=== PATIENT | female | born 1990 | race Caucasian/White ===

== ENCOUNTER 2018-05-06 12:41 | Outpatient (REF) | payer OTHER, SELFPAY ==
--- NOTE | 2018-05-06 10:40 | PAPFT_PTH ---
PATIENT: Tiny Juarez LOC: [facility] U#:[id number] AGE/SX: 27/F ROOM: RE05/06/[address]: ZAIRA Alberto : 1990 BED: DIS: 05/06/2018 SPEC #: [id number] RECD: 05/06/18 13:14 STATUS: LIBERTAD REHermila #: [id number] JR: 05/06/18 10:[address]: Radha De Jesus DEPT: [facility] Cytology RECD BY: Brooke Farah ENTERED: 05/06/18 13:14 SP TYPE: PAPFT OTHR DR: Susi Ceja Tissues: 1 - CX/ENDOCX FOR PAP SMEARS Procedures: PAP THIN PREP/UVM Screening Comments: [id number]
[2018-05-09 15:07] LABS: Chlamydia Result Negative; GC Result Negative; Specimen Description CERVIX
== END 2018-05-06 13:01 ==
LOC: LBN 12:41
PROVIDERS: PCP Nurse Practitioner; Visit Provider Nurse Practitioner Family
DX: Z11.3 Encounter for screening for infections with a predominantly sexual mode of transmission (principal); Z12.4 Encounter for screening for malignant neoplasm of cervix
CPT/HCPCS: 87491; 87591; 88142

== ENCOUNTER 2018-11-28 00:32 | Outpatient (CLI) | payer OTHER, SELFPAY ==
--- NOTE | 2018-11-28 13:00 | DI.US_ITS ---
EXAM: US BREAST LT COMPLETE CLINICAL HISTORY: BREAST LESION N64.9, RECURRENT BOILS L02.92. TECHNIQUE: Ultrasound was performed using standard protocol. COMPARISON: US BREAST RT COMPLETE from 11/28/2018 FINDINGS: Bilateral small vascular subcutaneous nodules are identified. IMPRESSION: There is no evidence of a right or left breast mass or cyst.
--- NOTE | 2018-11-28 13:00 | DI.US_ITS ---
EXAM: US BREAST RT COMPLETE CLINICAL HISTORY: BREAST LESION N64.9, RECURRENT BOILS L02.92. TECHNIQUE: Ultrasound was performed using standard protocol. FINDINGS: A bilateral breast ultrasound was carried out. Small subcutaneous lesions are demonstrated bilateral ly. In the superior portion of the right breast, the largest measures 6.8 x 2.0 x 9.1 mm. For media l portion of the left breast, the largest measures 7.5 x 4 x 7 mm. There is no evidence of a breast cyst or mass IMPRESSION: Multiple small subcutaneous nodular regions are noted. There is no evidence of mass or cyst in the br east tissue. Dermatological assessment is suggested.
== END 2018-11-28 00:52 ==
PROVIDERS: PCP Nurse Practitioner Family; Visit Provider Nurse Practitioner Family
DX: N64.9 Disorder of breast, unspecified (principal); L02.92 Furuncle, unspecified; N64.89 Other specified disorders of breast
CPT/HCPCS: 76642

== ENCOUNTER 2019-05-26 09:50 | Outpatient (REF) | payer OTHER, SELFPAY ==
--- NOTE | 2019-05-26 09:30 | PAPFT_PTH ---
PATIENT: Tiny Juarez LOC: [facility] U#:[id number] AGE/SX: 29/F ROOM: RE05/26/[address]: ZAIRA Alberto : 1990 BED: DIS: 05/26/2019 SPEC #: [id number] RECD: 05/26/19 13:25 STATUS: LIBERTAD REHermila #: [id number] JR: 05/26/19 09:[address]: Radha De Jesus DEPT: [facility] Cytology RECD BY: Brooke Farah ENTERED: 05/26/19 13:26 SP TYPE: PAPFT OTHR DR: Lisa Mcgregor Tissues: 1 - CX/ENDOCX FOR PAP SMEARS Procedures: PAP THIN PREP/UVM Screening HPV DNA PROBE Comments: [id number]
== END 2019-05-26 10:10 ==
LOC: LBN 09:50
PROVIDERS: PCP Nurse Practitioner Family; Visit Provider Nurse Practitioner Family
DX: Z12.4 Encounter for screening for malignant neoplasm of cervix (principal); Z11.51 Encounter for screening for human papillomavirus (HPV)
CPT/HCPCS: 88142; 87624

== ENCOUNTER 2020-01-23 14:42 | Outpatient (REF) | payer OTHER, SELFPAY ==
[2020-01-27 03:52] LABS: Patient Race White; SARS-CoV-2 RNA Undetected (Undetected); SARS-CoV-2 Specimen Source Nasal
== END 2020-01-23 15:02 ==
LOC: NCHCN 14:42
PROVIDERS: PCP Nurse Practitioner Family; Visit Provider Family Medicine
DX: Z20.828 Contact with and (suspected) exposure to other viral communicable diseases (principal)
CPT/HCPCS: U0003

== ENCOUNTER 2020-01-30 11:17 | Outpatient (REF) | payer OTHER, SELFPAY ==
[2020-01-30 21:59] LABS: HCT 43.1 % (36.0-46.0); HGB 14.1 g/dL (11.2-15.7); MCH 29.7 pg (27.0-33.0); MCHC 32.7 % (32.0-36.0); MCV 90.7 fL (80-95); MPV 10.8 fL (8.0-11.0); Platelet Count 259 10^3/uL (130-400); RBC 4.75 10^6/uL (3.93-5.22); RDW 12.1 % (11.7-14.6); RDW-SD 40.2 fL
[2020-01-30 22:23] LABS: Iron 57 ug/dL (50-170); Total Iron Binding Capacity 363 ug/dL (250-450); Transferrin Sat 16 % (15-50)
[2020-01-30 22:51] LABS: ALT 44 U/L (14-59); AST 22 U/L (15-37); Albumin 4.1 g/dL (3.4-5.0); Alkaline Phosphatase 41 U/L (46-116); Anion Gap 6.3 mmol/L (3-11); BUN 14 mg/dL (7-18); Bilirubin, Total 0.2 mg/dL (0.2-1.0); CO2 28.7 mmol/L (21.0-32.0); CREATININE 0.66 mg/dL (0.55-1.02); Calcium 8.9 mg/dL (8.5-10.1); Chloride 103 mmol/L (98-107); Glucose 69 mg/dL (74-106); Magnesium 2.1 mg/dL (1.8-2.4); Potassium 4.3 mmol/L (3.5-5.1); Sodium 138 mmol/L (136-145); TSH (W/Ref FT4) 2.62 uIU/mL (0.36-3.74); Total Protein 7.9 g/dL (6.4-8.2); Vitamin B12 835 pg/mL (193-986)
[2020-01-30 22:58] LABS: HCG Quant, Pregnancy < 1 mIU/mL (1-3)
== END 2020-01-30 11:37 ==
LOC: NCHCN 11:17
PROVIDERS: PCP Nurse Practitioner Family; Visit Provider Nurse Practitioner Family
DX: R42 Dizziness and giddiness (principal)
CPT/HCPCS: 80053; 85027; 82607; 83540; 83550; 83735; 84443; 84702

== ENCOUNTER 2021-01-16 16:52 | Outpatient (REF) | payer OTHER, SELFPAY ==
[2021-01-20 14:23] LABS: Chlamydia Result Negative (Negative); GC Result Negative (Negative)
== END 2021-01-16 16:53 | disposition home or self-care (01) ==
LOC: LBN 16:52
PROVIDERS: PCP Nurse Practitioner Family; Visit Provider Nurse Practitioner Family
DX: Z11.3 Encounter for screening for infections with a predominantly sexual mode of transmission (principal)
CPT/HCPCS: 87491; 87591

== ENCOUNTER 2021-01-20 03:31 | Outpatient (CLI) | payer SELFPAY ==
[2021-01-20 13:03] LABS: TSH (W/Ref FT4) 2.74 uIU/mL (0.36-3.74)
== END 2021-01-20 03:32 | disposition home or self-care (01) ==
LOC: LBO 03:32
PROVIDERS: PCP Nurse Practitioner Family; Visit Provider Nurse Practitioner Family
DX: N92.6 Irregular menstruation, unspecified (principal)
CPT/HCPCS: 36415; 84443

== ENCOUNTER 2022-05-15 02:38 | Outpatient (CLI) | payer BC, SELFPAY ==
[2022-05-15 13:11] LABS: Vitamin D 25 Total 20.9 ng/mL (30-100)
[2022-05-15 19:21] LABS: Estradiol 28 pg/mL (See Note); FSH 4.6 mIU/mL (See Note); Prolactin 4.8 ng/mL (See Note)
[2022-05-18 09:02] LABS: Measles IgG Antibody Positive (See Note)
[2022-05-18 09:05] LABS: Rubella IgG Ab (UVM) Positive (See Note)
[2022-05-18 09:20] LABS: DHEA Sulfate 233 ug/dL (96-512)
[2022-05-22 12:31] LABS: Testosterone, Free 0.72 ng/dL (<0.13-1.03); Testosterone, Total 26 ng/dL (8-60)
[2022-05-23 23:26] LABS: 17-Hydroxyprogesterone 54 ng/dL
== END 2022-05-15 02:39 | disposition home or self-care (01) ==
LOC: LBO 02:38
PROVIDERS: PCP Nurse Practitioner Family; Visit Provider Obstetrics & Gynecology
DX: N91.4 Secondary oligomenorrhea (principal); L70.0 Acne vulgaris
CPT/HCPCS: 36415; 82306; 82627; 84402; 84403; 82670; 83001; 83498; 83520; 84146; 84443; 86762; 86765

== ENCOUNTER 2023-02-16 16:43 | Outpatient (REF) | payer BC, SELFPAY ==
--- NOTE | 2023-02-16 15:30 | PAPFT_PTH ---
PATIENT: Tiny Juarez LOC: [facility] U#:[id number] AGE/SX: 32/F ROOM: RE02/16/[address]: Tatyana Daniels MD : 1990 BED: DIS: 02/16/2023 SPEC #: [id number] RECD: 02/16/23 17:41 STATUS: LIBERTAD REQ #: [id number] JR: 02/16/23 15:[address]: Tatyana Daniels DEPT: [facility] Cytology RECD BY: Brooke Farah ENTERED: 02/16/23 17:41 SP TYPE: PAPFT OTHR DR: Lisa Mcgregor Tissues: 1 - CX/ENDOCX FOR PAP SMEARS Procedures: PAP THIN PREP/UVM Screening HPV DNA PROBE Comments: [id number]
== END 2023-02-16 16:44 | disposition home or self-care (01) ==
LOC: LBN 16:43
PROVIDERS: PCP Nurse Practitioner Family; Visit Provider Obstetrics & Gynecology
DX: Z12.4 Encounter for screening for malignant neoplasm of cervix (principal)
CPT/HCPCS: 88142; 87624

== ENCOUNTER 2023-04-26 05:12 | Outpatient (CLI) | payer BC, SELFPAY ==
--- NOTE | 2023-05-07 14:53 | W.NUTRFU ---
Date of service: 04/26/23 Time of Service: 14:30 Nutrition Note NOTE: Tiny would like help with her weight mgt struggles. She is 60.5 and 164 pounds today with a BMI of 31.5kg/m2. She lives at home with her and 10yo son. She denies current consumption of sugar beverages and averages 1 glass of milk per day with tons of water daily. She takes vitamin. She is hoping to lose weight so IVF chances are greater. 140lbs is her goal. She has experimented with intermittent fasting and did 16/8 for awhile and now is doing 02/16 (~7:45am to 7:45pm for her eating window). I agreed that the 02/16 is better for her to get necessary nutrients but also closes the window before night time snacking can occur for many people. She usually has CIB drink for breakfast, lunch migh be salad - she tries to avoid no breads and pasta during the week but will allow toast on the weekend. Reviewed estimated energy as 1600kcals for slow and steady wt loss and translated this to 160g carb recommendation -reviewed carb counting and this includes starches, added sugars (to be kept under 30g) and fiber. encouraged protein at each meal with goal of 120g per day - reviewed sources and examples and highlighted a good amount of protein should be coming from plants to ensure high fiber intake as well (nuts seeds, beans, lentils and high protein grains like whole oats and quinoa) She uses treadmill and recumbant bike periodically. I emphasized strength training for developing lean muscle to aid in her goal for efficient metabolism. encouraged whole foods and minimally processed products - suggested CIB in the morning could be more nutritious and higher in protein if made a smoothie with whey instead with frz berries, flax and frzn greens. gave her some reliable resources for help with menu planning gave her my card with contact info should she have any more questions or desires follow up Time Spent in Nutritional Counseling and Treatment: 30 minutes
== END 2023-04-26 05:13 | disposition home or self-care (01) ==
LOC: DS 05:12
PROVIDERS: PCP Nurse Practitioner Family; Visit Provider Dietitian, Registered
DX: E66.3 Overweight (principal); Z68.31 Body mass index [BMI] 31.0-31.9, adult; Z71.3 Dietary counseling and surveillance
CPT/HCPCS: 123; 97802; 00123

== ENCOUNTER 2024-01-06 08:19 | Outpatient (CLI) | payer BC, SELFPAY ==
--- OUTSIDE RECORDS SUMMARY | 2024-01-06 08:21 | XMS_ITS | Encounter Summary ---
Author Organization [facility] Address [address] [place] [address] Care Team Providers Care Bmw Sales Consultant Name Role Phone BalbirLisa [facility] Primary Care Provider [phone] Md MICHAELA Alfaro Unavailable Unavailable Encounter Details Date Type Department Care Team (Late st Contact Info) Description 12/27/2023 8:45 EDT Phlebotomy Only [facility] ED Center 2 Phlebotomy [address] [place] [address] Aircraft Fuselage Framer, [facility] Phlebotomy Encounter for in vitro fertilization Social History Tobacco Use Types Packs/Day Years Used Date Smoking Tobacco: Never Smokeless Tobacco: Never Alcohol Use Standard Drinks/Week Comments Not Currently 0 (1 standard drink = 0.6 oz pur e alcohol) Sex and Gender Information Value Date Recorded Sex Assigned at Female 09/07/2023 13:39 EDT Gender Identity Female 09/07/2023 13:39 EDT Sexual Orientation Straight 09/07/2023 13 :39 EDT documented as of this encounter Plan of Treatment Upcoming Encounters Date Type Department Care Team (Late st Contact Info) Description 01/13/2024 13:15 EST Telemedicine [facility] Center Reproductive Medicine & Infertility Center - [facility] [address], [place] [phone] Layla Reid MD [address] [facility], [address] [place] [address] documented as of this encounter Procedures Procedure Name Priority Date/Time Associated Diagnosis Comments QUANT BETA HCG, Routine 12/27/2023 9:04 EDT Encounter for in vitro fertilization documented in this encounter Results * (ABNORMAL) QUANT BETA HCG, (12/27/2023 9:04 EDT) Beta HCG Quant, 18(H) <5 mIU/mL 12/27/2023 10:17 EDT [facility] Comment: NOTE: : Negative: Less than 5mIU/mL Indeterminant: Between 5 and 25 mIU/mL, recommend repeat testing in 48 hours Positive: Greater than 25 mIU/mL The results of this assay can be falsely lowered due to the consumption of Biotin. Blood VENOUS BLOOD / Unknown Venipuncture / Unknown 12/27/2023 9:04 EDT 12/27/2023 9:33 EDT Layla Reid MD CHEMISTRY & BLOOD GAS ORDERABLES [facility] [address] [place] [address] documented in this encounter Visit Diagnoses Diagnosis Encounter for in vitro fertilization Encounter for assisted reproductive fertility procedure cycle documented in this encounter Care Teams Bmw Sales Consultant Relationship Specialty Start Date End Date Lisa Mcgregor FNP [address] [place] [address] [address] [place] [address] PCP - General 05/05/22 Md Alfaro MD 05/05/22 documented as of this encounter
--- OUTSIDE RECORDS SUMMARY | 2024-01-06 08:21 | XMS_ITS | Encounter Summary ---
Author Organization [facility] Address [address] [place] [address] Care Team Providers Care Merchandise Team Manager Name Role Phone Lisa Mcgregor [facility] Primary Care Provider [phone] Md MICHAELA Alfaro Unavailable Unavailable Encounter Details Date Type Department Care Team (Late st Contact Info) Description 12/29/2023 Orders Only [facility] Reproductive Medicine & Infertility [address] [address] Aleisha Che, [place] Encounter for in vitro fertilization (Primary Dx) Social History Tobacco Use Types Packs/Day Years [...] Contact Info) Description 01/13/2024 13:15 EST Telemedicine [facility] Reproductive Medicine & Infertility [address] [phone] Layla Reid MD [address] [place] [address] [address] [place] [phone] documented as of this encounter Results * (ABNORMAL) QUANT BETA HCG, (12/31/2023 9:21 EDT) Beta HCG Quant, 89(H) <5 mIU/mL 12/31/2023 10:27 EDT [facility] Comment: NOTE: : Negative: Less than 5mIU/mL Indeterminant: Between 5 and 25 mIU/mL, recommend repeat testing in 48 hours Positive: Greater than 25 mIU/mL The results of this assay can be falsely lowered due to the consumption of Biotin. Blood VENOUS BLOOD / Unknown Venipuncture / Unknown 12/31/2023 9:21 EDT 12/31/2023 9:43 EDT Layla Reid MD CHEMISTRY & BLOOD GAS ORDERABLES [facility] [address] [place], [place] [phone] documented in this encounter Visit Diagnoses Diagnosis Encounter for in vitro fertilization- Primary Encounter for assisted reproductive fertility procedure cycle documented in this encounter Care Teams Merchandise Team Manager Relationship Specialty Start Date End Date Lisa Mcgregor FNP [address] [facility] [address] [place] [phone] PCP - General 05/05/22 Md Alfaro MD 05/05/22 documented as of this encounter
--- OUTSIDE RECORDS SUMMARY | 2024-01-06 08:21 | XMS_ITS | Encounter Summary ---
Author Organization [facility] Address [address] [place] [address] Care Team Providers Care Digital Content Producer Name Role Phone BalbirLisa [facility] Primary Care Provider [phone] Md MICHAELA Alfaro Unavailable Unavailable Encounter Details Date Type Department Care Team (Late st Contact Info) Description 12/20/2023 9:00 EDT Phlebotomy Only [facility] ED Center 2 Phlebotomy [address] [place], [place] [phone] Lead Worker Of Housekeeping And Laundry, [facility] Phlebotomy Female infertility Social History Tobacco Use Types Packs/Day Years [...] Contact Info) Description 01/13/2024 13:15 EST Telemedicine [facility] Center Reproductive Medicine & Infertility Center - [facility] [address] [place] [address] Layla Reid MD 111 [facility] [address] [place] [phone] documented as of this encounter Procedures Procedure Name Priority Date/Time Associated Diagnosis Comments PROGESTERONE Routine 12/20/2023 9:33 EDT Female infertility ESTRADIOL, ADULTS Routine 12/20/2023 9:3 3 EDT Female infertility QUANT BETA HCG, Routine 12/20/2023 9:33 EDT Female infertility documented in this encounter Results * PROGESTERONE (12/20/2023 9:33 EDT) [facility] Signature Progesterone 58.6 See Table ng/mL 12/20/2023 13:18 EDT [facility] Comment: Female Reference Ranges: PHYSIOLOGICAL STATUS ?REFERENCE RANGE ? Pre-Pubertal: ? <= 0.2 ng/mL Menstruating: (Non-) Follicular Phase: ? <= 1.4 ng/mL Luteal Phase: ? 3.3 - 25.6 ng/mL Mid-luteal Phase: ? 4.4 - 28.0 ng/mL Postmenopausal: ? <= 0.7 ng/mL : -------- First Trimester: ?11.2 - 90.0 ng/mL Second Trimester: ? 25.6 - 89.4 ng/mL Third Trimester: ?48.4 - 422.5ng/mL For ectopic , consult a pathologist. Blood VENOUS BLOOD / Unknown Venipuncture / Unknown 12/20/2023 9:33 EDT 12/20/2023 9:52 EDT Layla Reid MD CHEMISTRY & BLOOD GAS ORDERABLES Performing Organization Address [facility] Co de Phone Number [facility] [address] [place] [address] * ESTRADIOL, ADULTS (12/20/2023 9:33 EDT) Estradiol 188 See Note pg/mL 12/20/2023 11:11 EDT [facility] Comment: NOTE: FEMALE REFERENCE RANGES: MENSTRUATING ? By cycle day relative to LH peak Follicular ?(-12 to -4 days) ??20-144 pg/mL Midcycle ?(-3 to +2 days) ?? 64-357 pg/mL Luteal ?(+4 to +12 days) ??56-214 pg/mL POSTMENOPAUSAL ?<32 pg/mL *Cross reactivity with Fulvestrant could lead to a falsely elevated estradiol result in patients treated with this drug. Blood VENOUS BLOOD / Unknown Venipuncture / Unknown 12/20/2023 9:33 EDT 12/20/2023 9:52 EDT Layla Reid MD CHEMISTRY & BLOOD GAS ORDERABLES Performing Organization Address [facility] Co de Phone Number [facility] [address] [place] [address] * QUANT BETA HCG, (12/20/2023 9:33 EDT) Beta HCG Quant, <5 <5 mIU/mL 12/20/2023 10:38 EDT [facility] Comment: NOTE: : Negative: Less than 5mIU/mL Indeterminant: Between 5 and 25 mIU/mL, recommend repeat testing in 48 hours Positive: Greater than 25 mIU/mL The results of this assay can be falsely lowered due to the consumption of Biotin. Blood VENOUS BLOOD / Unknown Venipuncture / Unknown 12/20/2023 9:33 EDT 12/20/2023 9:52 EDT Layla Reid MD CHEMISTRY & BLOOD GAS ORDERABLES [facility] [address] [place] [address] documented in this encounter Visit Diagnoses Diagnosis Female infertility Female infertility of unspecified origin documented in this encounter Care Teams Digital Content Producer Relationship Specialty Start Date End Date Lisa Mcgregor FNP [address] [phone] PCP - General 05/05/22 Md Alfaro MD 05/05/22 documented as of this encounter
--- OUTSIDE RECORDS SUMMARY | 2024-01-06 08:21 | XMS_ITS | Encounter Summary ---
Author Organization [facility] Address [address] [place] [address] Care Team Providers Care Regulatory Affairs Internship Name Role Phone BalbirLisa [facility] Primary Care Provider [phone] Md MICHAELA Alfaro Unavailable Unavailable Encounter Details Date Type Department Care Team (Late st Contact Info) Description 12/16/2023 9:15 EDT Phlebotomy Only [facility] ED Center 2 Phlebotomy [address] [place], [place] [address] Junior Web Developer, [facility] Phlebotomy Encounter for assisted reproductive fertility cycle; Encounter for assisted reproductive fertility procedure cycle [Z31.83] Social History Tobacco Use Types Packs/Day Years [...] Contact Info) Description 01/13/2024 13:15 EST Telemedicine [facility] Center Reproductive Medicine & Infertility Center - [facility] [address] [place], [place] [phone] Layla Reid MD [address] [facility] [address] [place] [phone] (Zuzo) documented as of this encounter Procedures Procedure Name Priority Date/Time Associated Diagnosis Comments PROGESTERONE Routine 12/16/2023 9:37 EDT Encounter for assisted reproductive fertility procedure cycle [Z31.83] ESTRADIOL, ADULTS Routine 12/16/2023 9:3 7 EDT Encounter for assisted reproductive fertility cycle documented in this encounter Results * PROGESTERONE (12/16/2023 9:37 EDT) [facility] Signature Progesterone 36.0 See Table ng/mL 12/16/2023 10:55 EDT [facility] Comment: Female Reference Ranges: PHYSIOLOGICAL [...] VENOUS BLOOD / Unknown Venipuncture / Unknown 12/16/2023 9:37 EDT 12/16/2023 10:02 EDT Layla Reid MD CHEMISTRY & BLOOD GAS ORDERABLES Performing Organization Address [facility] Co de Phone Number [facility] [address] [place] [address] * ESTRADIOL, ADULTS (12/16/2023 9:37 EDT) Estradiol 457 See Note pg/mL 12/16/2023 10:55 EDT [facility] Comment: NOTE: FEMALE REFERENCE RANGES: [...] VENOUS BLOOD / Unknown Venipuncture / Unknown 12/16/2023 9:37 EDT 12/16/2023 10:02 EDT Aurora Hinton MD CHEMISTRY & BLOOD GA S ORDERABLES Performing Organization Address City/[facility] Co de Phone Number [facility] [address] [place] [address] documented in this encounter Visit Diagnoses Diagnosis Encounter for assisted reproductive fertility cycle Encounter for assisted reproductive fertility procedure cycle Encounter for assisted reproductive fertility procedure cycle [Z31.83] Encounter for assisted reproductive fertility procedure cycle documented in this encounter Care Teams Regulatory Affairs Internship Relationship Specialty Start Date End Date Lisa Mcgregor FNP [address] [place] [address] [address] [place] [address] PCP - General 05/05/22 Md Alfaro MD 05/05/22 documented as of this encounter
--- OUTSIDE RECORDS SUMMARY | 2024-01-06 08:21 | XMS_ITS | Encounter Summary ---
Author Organization [facility] Address [address] [place] [address] Care Team Providers Care Feeder Loader Name Role Phone BalbirLisa [facility] Primary Care Provider [phone] Md MICHAELA Alfaro Unavailable Unavailable Reason for Referral * Radiology Services (Routine/Next Available) - New Request Specialty Diagnoses / Procedures [facility] Referred To Contact Diagnoses Encounter for assisted reproductive fertility procedure cycle Procedures POC IVF/KIANNA US GUIDANCE Layla Reid MD [address] [place] [phone] Referral ID Status Reason Start Date Expiration Date V isits Requested Visits Authorized [id number] New Request 12/16/2023 1 1 Encounter Details Date Type Department Care Team (Late st Contact Info) Description 12/16/2023 11:00 EDT - 12/16/2023 23:59 EDT Hospital Encounter [facility] Reproductive Medicine & Infertility Center - [facility] [address] [place] [address] Layla Reid MD [address] [phone] Encounter for assisted reproductive fertility procedure cycle (Primary Dx) Discharge Disposition: Home or Self Care Social History Tobacco Use Types Packs/Day Years [...] :39 EDT documented as of this encounter Medications at Time of Discharge Medication Sig Dispensed Refills Start Date End Date acyclovir (ZOVIRAX) 200 mg capsule Take 2 Capsules by mouth 2 times daily. cholecalciferol, Vitamin D3, 25 mcg (1,000 unit) tablet Take 2 Tablets by mouth daily. chorionic gonadotropin, human (PREGNYL) 10,000 unit injection Injected 1 mL into the skin once when directed. 1 Each 11/02/2023 Follitropin Arnoldo (GONAL-F) 1,050 unit recon soln Inject 300 Units into the skin daily. 1 Each 12/10/2023 ganirelix (ANTAGON) 250 mcg/0.5 mL syringe Inject 0.5 mL into the skin daily. 2 Each 12/10/2023 leuprolide (LUPRON) 1 mg/0.2 mL kit Inject 80 units into the skin 12 hours apart when direct. BILL TO IVF CLINIC PLAN, GLOBAL. 1 Each 12/07/2023 menotropins (MENOPUR) 75 unit solution for subcutaneous injection Inject 150 Units into the skin daily. 5 Each 12/09/2023 25/iron fum/folic/dha (-1 ORAL) Take by mouth daily. estradioL (ESTRACE) 2 mg tablet Take 1 Tablet by mouth 3 times daily. 90 Tablet 12/13/2023 12/29/2023 oxyCODONE (ROXICODONE) 5 mg immediate release tablet Take 1 Tablet by mouth every 4 hours as needed for up to 5 doses for Pain. Daily Max: 30 mg 5 Tablet 12/14/2023 12/29/2023 progesterone in oil 50 mg/mL injection Inject 1 mL into the muscle daily. 3 Each 1 11/02/2023 12/29/2023 documented as of this encounter Discharge Disposition Disposition Code Departure Means Destination Home or Self Care documented in this encounter Progress Notes * Layla Reid MD - 12/16/2023 1100 EDT EMBRYO TRANSFER PROCEDURE NOTE Consents verified and a standard WHO surgical time out verification procedure performed prior to start of embryo transfer. The patient, providers, and the embryology lab were all in agreement to transfer 2 embryo(s). The grade was: 8B+, 7B+ The remaining day 3 embryos will remain in culture to day 5. Findings: (1) Normal-appearing anteverted uterus with thickened trilaminar endometrial stripe, measuring 10mm. (2) Transfer completed using Wallce catheter without stylet guide with minimal curve on catheter. No difficulty. Sterile [place] speculum inserted, cervix cleaned with sterile culture media. Endocervix cleaned of cervical mucus with small cotton swab. No bleeding occurred. Under ultrasound guidance, the [place] embryo transfer catheter was passed without difficulty in one attempt into the endocervical canal to the level of the internal cervical os. The lab was then notified to load the embryos into the inner catheter. The inner guide catheter was then removed from the outer sheath, and a new inner catheter with embryos loaded was introduced to approximately 1.3 cm from the uterine fundus under ultrasound guidance. The embryos were then transferred into the uterine cavity. After a 15 second pause, thecatheter was removed and returned to the lab. There was no blood or mucus on the catheter, and no embryos were retained. No uterine cramping occurred. The speculum was then removed. The patient had afull bladder throughout the procedure. She then immediately ambulated to the restroom to empty her bladder. Transfer performed by Dr. Land, assisted by Dr. Reid. First serum HCG to be drawn on 12/27/23. Jessa Land MD PGY7 Fellow Reproductive Endocrinology & Infertility [facility] 12/16/2023 Attestation statement: I was present during the entire procedure during the patient's clinic visit.I agree with the findings and plan of care documented in the above note. Layla Reid MD Reproductive Endocrinology and Infertility. documented in this encounter Miscellaneous Notes * Addendum Note - Layla Reid MD - 12/16/2023 1100 EDTEncounter addended by: Layla Reid MD on: 12/16/2023 12:55 Actions taken: Clinical Note Signed * Addendum Note - Layla Reid MD - 12/16/2023 1100 EDTEncounter addended by: Layla Reid MD on: 12/17/2023 8:31 Actions taken: Clinical Note Signed * Addendum Note - Layla Reid MD - 12/16/2023 1100 EDTEncounter addended by: Layla Reid MD on: 12/17/2023 8:32 Actions taken: Clinical Note Signed documented in this encounter Plan of Treatment Upcoming Encounters Date Type Department Care Team (Late st Contact Info) Description 01/13/2024 13:15 EST Telemedicine [facility] Reproductive Medicine & Infertility Center - [address] [phone] Layla Reid MD [address] [place] [address], [address] [place] [phone] documented as of this encounter Results * POC IVF/KIANNA US GUIDANCE (12/16/2023 10:50 EDT) Narrative 12/16/2023 10:50 EDT This is a non-reportable exam. Layla Reid MD IMG US POC ORDERA BLES documented in this encounter Visit Diagnoses Diagnosis Encounter for assisted reproductive fertility procedure cycle- Primary Encounter for assisted reproductive fertility procedure cycle documented in this encounter Care Teams Feeder Loader Relationship Specialty Start Date End Date Lisa Mcgregor FNP 26 [facility] [address] [place] [phone] PCP - General 05/05/22 Md Alfaro MD 05/05/22 documented as of this encounter
--- OUTSIDE RECORDS SUMMARY | 2024-01-06 08:21 | XMS_ITS | Encounter Summary ---
Author Organization [facility] Address [address] [place] [address] Care Team Providers Care Copper Plate Lithographer Name Role Phone Lisa Mcgregor [facility] Primary Care Provider [phone] Md MICHAELA Alfaro Unavailable Unavailable Encounter Details Date Type Department Care Team (Late st Contact Info) Description 12/27/2023 Orders Only [facility] Reproductive Medicine & Infertility [address] [address] Aleisha Che, [place] Encounter for [...] Contact Info) Description 01/13/2024 13:15 EST Telemedicine [facility] Rep[facility]ductive Medicine & Infertility [address] [id number] Layla Reid MD [address] [place] [address] [address] [place] [phone] documented as of this encounter Results * (ABNORMAL) QUANT BETA HCG, (12/29/2023 9:15 EDT) Beta HCG Quant, 38(H) <5 mIU/mL 12/29/2023 10:31 EDT [facility] Comment: NOTE: : Negative: Less than 5mIU/mL Indeterminant: Between 5 and 25 mIU/mL, recommend repeat testing in 48 hours Positive: Greater than 25 mIU/mL The results of this assay can be falsely lowered due to the consumption of Biotin. Blood VENOUS BLOOD / Unknown Venipuncture / Unknown 12/29/2023 9:15 EDT 12/29/2023 9:43 EDT Layla Reid MD CHEMISTRY & BLOOD GAS ORDERABLES [facility] [address] [place] [phone] documented in this encounter Visit Diagnoses Diagnosis Encounter for in vitro fertilization- Primary Encounter for assisted reproductive fertility procedure cycle documented in this encounter Care Teams Copper Plate Lithographer Relationship Specialty Start Date End Date Lisa Mcgregor FNP [address] [facility] [address] [place] [phone] PCP - General 05/05/22 Md Alfaro MD 05/05/22 documented as of this encounter
--- OUTSIDE RECORDS SUMMARY | 2024-01-06 08:21 | XMS_ITS | Encounter Summary ---
Author Organization [facility] Address [address] [place] [address] Care Team Providers Care Envelope Sealer Name Role Phone Lisa Mcgregor [facility] Primary Care Provider [phone] Md MICHAELA Alfaro Unavailable Unavailable Reason for Referral * Radiology Services (Routine/Next Available) - New Request Specialty Diagnoses / Procedures Referred By Jalil t Referred To Contact Diagnoses Encounter for assisted reproductive fertility procedure cycle Procedures POC IVF/KIANNA US GUIDANCE Layla Reid MD [address] [address] Referral ID Status Reason Start Date Expiration Date V isits Requested Visits Authorized [id number] New Request 12/16/2023 1 1 Reason for Visit * Radiology Services (Routine/Next Available) - New Request Specialty Diagnoses / Procedures Referred By Contunique quiñones Referred To Contact Diagnoses Encounter for assisted reproductive fertility procedure cycle Procedures POC IVF/KIANNA US GUIDANCE Layla Reid MD [address] [address] Referral ID Status Reason Start Date Expiration Date V isits Requested Visits Authorized [id number] New Request 12/16/2023 1 1 Encounter Details Date Type Department Care Team (Latest Contact Info) Description 12/16/2023 10:50 EDT - 12/16/2023 10:59 EDT Hospital Encounter [facility] Reproductive Medicine [facility] Infertility [facility] - [address] [address] Encounter for assisted reproductive fertility procedure cycle Discharge Disposition: Home or Self Care Social [...] or Self Care documented in this encounter Plan of Treatment Upcoming Encounters Date Type Department Care Team (Late st Contact Info) Description 01/13/2024 13:15 EST Telemedicine [facility] Reproductive Medicine & Infertility Center - [facility] [address] [place] [address] Layla Reid MD [address] [place] [address], [address] [place] [phone] documented as of this encounter Procedures Procedure Name Priority Date/Time Associated Diagnosis Comments POC IVF/KIANNA US GUIDANCE Routine 12/16/2023 10:50 EDT Encounter for assisted reproductive fertility procedure cycle documented in this encounter Results * POC IVF/KIANNA US GUIDANCE (12/16/2023 10:50 EDT) Narrative 12/16/2023 10:50 EDT This is a non-reportable exam. Layla Reid MD IMG US POC ORDERA BLES documented in this encounter Visit Diagnoses Diagnosis Encounter for assisted reproductive fertility procedure cycle documented in this encounter Care Teams Envelope Sealer Relationship Specialty Start Date End Date Lisa Mcgregor FNP [address] [facility] [address] [place] [phone] PCP - General 05/05/22 Md Alfaro MD 05/05/22 documented as of this encounter
--- OUTSIDE RECORDS SUMMARY | 2024-01-06 08:21 | XMS_ITS | Encounter Summary ---
Author Organization [facility] Address [address] [place] [address] Care Team Providers Care Collar Baster Jumpbasting Name Role Phone BalbirLisa [facility] Primary Care Provider [phone] Md MICHAELA Alfaro Unavailable Unavailable Encounter Details Date Type Department Care Team (Late st Contact Info) Description 12/29/2023 9:00 EDT Phlebotomy Only [facility] 2 Phlebotomy [address] [place] [address] Mold Sheet Cleaner, [facility] Phlebotomy Encounter for in vitro fertilization Social [...] Contact Info) Description 01/13/2024 13:15 EST Telemedicine [facility] Reproductive Medicine & Infertility Center - [facility] [address] [place], [place] [phone] Layla Reid MD [address] [facility], [address] [place] [address] documented as of this encounter Procedures Procedure Name Priority Date/Time Associated Diagnosis Comments QUANT BETA HCG, Routine 12/29/2023 9:15 EDT Encounter for in vitro fertilization documented in this encounter Results * (ABNORMAL) QUANT BETA HCG, (12/29/2023 9:15 EDT) Beta HCG Quant, 38(H) <5 mIU/mL 12/29/2023 10:31 EDT [facility] Comment: NOTE: : [...] Reid MD CHEMISTRY & BLOOD GAS ORDERABLES [facility] [address] [place] [address] documented in this encounter Visit Diagnoses Diagnosis Encounter for in vitro fertilization Encounter for assisted reproductive fertility procedure cycle documented in this encounter Care Teams Collar Baster Jumpbasting Relationship Specialty Start Date End Date Lisa Mcgregro FNP [address] [place] [address] [address] [place] [address] PCP - General 05/05/22 Md Alfaro MD 05/05/22 documented as of this encounter
--- OUTSIDE RECORDS SUMMARY | 2024-01-06 08:21 | XMS_ITS | Referral Summary ---
Author Organization [facility] Address [address] [place] [address] Care Team Providers Care Process Control Programmer Name Role Phone Lisa Mcgregor CLINICAL REHAB SPECIALIST Primary Care Provider [phone] Md MICHAELA Alfaro Unavailable Unavailable Encounters Date Type Department Care Team Description 01/04/2024 Travel 01/04/2024 8:33 EDT - 01/04/2024 12:50 EDT Emergency [facility] Emergency Department - [address] [id number] Kirby Velazquez MD Threatened (Primary Dx) Discharge Disposition: Home or Self Care 01/02/2024 8:30 EDT Phlebotomy Only [facility] 2 Phlebotomy [address], [place] [id number] General Manager [employer], Acc Phlebotomy resulting from assisted reproductive technology in first trimester 12/31/2023 9:00 EDT Phlebotomy Only [facility] 2 Phlebotomy [address], [place] [address] General Manager [employer], Acc Phlebotomy Encounter for in vitro fertilization 12/29/2023 Telephone [facility] - [facility] [address], [place] [address] Lucrecia Land MD Results 12/29/2023 Orders Only [facility] Reproductive Medicine & Infertility Center - [facility] [place] [address] [place] [address] Aleisha Che, RN Encounter for in vitro fertilization (Primary Dx) 12/29/2023 9:00 EDT Phlebotomy Only [facility] 2 Phlebotomy [address] [place] [address] General Manager [employer], Acc Phlebotomy Encounter for in vitro fertilization 12/27/2023 Orders Only [facility] Reproductive Medicine & Infertility [facility] [address] [place] [address] Aleisha Che, RN Encounter for in vitro fertilization (Primary Dx) 12/27/2023 8:45 EDT Phlebotomy Only [facility] 2 Phlebotomy [address] [place] [address] General Manager [employer], Acc Phlebotomy Encounter for in vitro fertilization 12/24/2023 Orders Only [facility] Reproductive Medicine & Infertility [address] [address] Aleisha Che, RN Encounter for in vitro fertilization (Primary Dx) 12/23/2023 Documentation Visit [facility] & Infertility [address] [address] Lucrecia Land MD 12/23/2023 9:00 EDT Phlebotomy Only [facility] 2 Phlebotomy [address] [place] [address] General Manager [employer], Acc Phlebotomy Female infertility 12/20/2023 Documentation Visit [facility]ductive Medicine & Infertility [address] [address] Lucrecia Land MD 12/20/2023 9:00 EDT Phlebotomy Only [facility] 2 Phlebotomy [address] [place] [address] General Manager [employer], Acc Phlebotomy Female infertility 12/16/2023 10:50 EDT - 12/16/2023 10:59 EDT Hospital Encounter [facility] Rep[facility]ductive Medicine & Infertility [facility] [address], [place] [address] Encounter for assisted reproductive fertility procedure cycle Discharge Disposition: Home or Self Care 12/16/2023 9:15 EDT Phlebotomy Only [facility] [address] [place] [address] General Manager [employer], Acc Phlebotomy Encounter for assisted reproductive fertility cycle; Encounter for assisted reproductive fertility procedure cycle [Z31.83] 12/16/2023 11:00 EDT - 12/16/2023 23:59 EDT Hospital Encounter [facility] Infertility [address] [phone] Layla Reid MD Encounter for assisted reproductive fertility procedure cycle (Primary Dx) Discharge Disposition: Home or Self Care 12/14/2023 Telephone [facility] Medicine Infertility [address] [phone] Lucrecia Land MD Results 12/14/2023 Orders Only [facility] Rep[facility]ductive Medicine & Infertility [address] [id number] Lucrecia Land MD Female infertility (Primary Dx) 12/13/2023 7:59 EDT - 12/13/2023 23:59 EDT Hospital Encounter [facility] Medicine Infertility [address] [phone] Discharge Disposition: Home or Self Care 12/13/2023 8:45 EDT Anesthesia Event [facility] Medicine & Infertility [address] [address] Amparo Rivera MD Pearce, Laurie Ann, CRNA 12/13/2023 7:49 EDT - 12/13/2023 7:58 EDT Hospital Encounter [facility] Medicine Infertility [address] [address] Layla Reid MD Encounter for assisted reproductive fertility procedure cycle [Z31.83] (Primary Dx) Discharge Disposition: Home or Self Care 12/12/2023 Documentation Visit [facility] Infertility [address] [address] Lucrecia Land MD 12/12/2023 7:15 EDT Phlebotomy Only [facility] 2 Phlebotomy [address] [place] [address] General Manager [employer], Acc Phlebotomy Encounter for assisted reproductive fertility cycle; Encounter for assisted reproductive fertility procedure cycle 12/11/2023 8:15 EDT Phlebotomy Only [facility] 2 Phlebotomy [address] [place] [address] General Manager [employer], Acc Phlebotomy Encounter for assisted reproductive fertility cycle 12/11/2023 9:10 EDT Procedure visit [facility] Medicine & Infertility [address] [address] Aurora Hinton MD Encounter for assisted reproductive fertility procedure cycle (Primary Dx) 12/11/2023 8:38 EDT - 12/11/2023 23:59 EDT Hospital Encounter [address] [address] Encounter for assisted reproductive fertility cycle Discharge Disposition: Home or Self Care 12/10/2023 Orders Only [facility] Reproductive Medicine & Infertility [address] [address] Aleisha Che, RN 12/09/2023 Orders Only [facility] Reproductive Medicine & Infertility [address] [address] Aleisha Che, RN 12/09/2023 8:00 EDT Procedure visit [facility] Reproductive Medicine & Infertility [address] [address] Sheila Robb MD Encounter for assisted reproductive fertility cycle (Primary Dx) 12/09/2023 7:35 EDT - 12/09/2023 23:[address] [facility] [facility] [address] [phone] Encounter for assisted reproductive fertility cycle Discharge Disposition: Home or Self Care 12/07/2023 Orders Only [facility] Reproductive Medicine & Infertility [address] [address] Aleisha Che RN 12/07/2023 8:00 EDT Procedure visit [facility] Reproductive Medicine & Infertility [address] [address] Aurora Hinton MD Encounter for assisted reproductive fertility cycle (Primary Dx) 12/07/2023 7:25 EDT - 12/07/2023 23:59 EDT Hospital Encounter [address] [address] Encounter for assisted reproductive fertility cycle Discharge Disposition: Home or Self Care 12/05/2023 7:45 EDT Phlebotomy Only [facility] [address] [place] [address] General Manager [employer], Acc Phlebotomy Encounter for assisted reproductive fertility procedure cycle; Encounter for assisted reproductive fertility cycle 12/05/2023 9:30 EDT Procedure visit [facility] Reproductive Medicine & Infertility [address] [address] Cheryl Fuller MD Encounter for assisted reproductive fertility cycle (Primary Dx) 12/05/2023 8:34 EDT - 12/05/2023 23:59 EDT Hospital Encounter [address] [address] Encounter for assisted reproductive fertility cycle Discharge Disposition: Home or Self Care 12/03/2023 Documentation Visit [facility] Reproductive Medicine & Infertility [address] [address] Lucrecia Land MD 12/03/2023 8:45 EDT Phlebotomy Only [facility] 2 Phlebotomy [address] [place] [address] General Manager [employer], Acc Phlebotomy Encounter for assisted reproductive fertility procedure cycle 12/01/2023 Documentation Visit [facility] Reproductive Medicine & Infertility [address] [address] Lucrecia Land MD 12/01/2023 8:45 EDT Phlebotomy Only [facility] 2 Phlebotomy [address] [place] [address] General Manager [employer], Acc Phlebotomy Encounter for assisted reproductive fertility procedure cycle 11/29/2023 Telephone [facility] Medicine & Infertility [address] [address] Olena Tucker RN Coordination Of Care 11/29/2023 Documentation Visit [facility] Medicine Infertility [address] [address] Lucrecia Land MD 11/29/2023 8:45 EDT Phlebotomy Only [facility] 2 Phlebotomy [address] [place] [address] General Manager [employer], Acc Phlebotomy Encounter for assisted reproductive fertility procedure cycle 11/26/2023 8:45 EDT Phlebotomy Only [facility] 2 Phlebotomy [address] [place] [address] General Manager [employer], Acc Phlebotomy Encounter for assisted reproductive fertility procedure cycle 11/26/2023 8:00 EDT Procedure visit [facility] Reproductive Medicine & Infertility [address] [address] Sheila Robb MD Encounter for assisted reproductive fertility procedure cycle (Primary Dx) 11/26/2023 7:25 EDT - 11/26/2023 23:59 EDT Hospital Encounter [facility] [address] [address] Encounter for assisted reproductive fertility cycle Discharge Disposition: Home or Self Care 11/02/2023 Orders Only [facility] Reproductive Medicine & Infertility [address] [phone] Aleisha Che, CHAPARRO from Last 3 Months Allergies Active Allergy Reactions Criticality Noted Date Comments Amoxicillin-Pot Clavulanate Rash 05/14/19 23 Medications Medication Sig Dispensed Refills Start Date End Date Status acyclovir (ZOVIRAX) 200 mg capsule Take 2 Capsules by mouth 2 times daily. Active 25/iron fum/folic/dha (-1 ORAL) Take by mouth daily. Active chorionic gonadotropin, human (PREGNYL) 10,000 unit injection Injected 1 mL into the skin once when directed. 1 Each 4 Active cholecalciferol, Vitamin D3, 25 mcg (1,000 unit) tablet Take 2 Tablets by mouth daily. Active leuprolide (LUPRON) 1 mg/0.2 mL kit Inject 80 units into the skin 12 hours apart when direct. BILL TO IVF CLINIC PLAN, GLOBAL. 1 Each 4 Active menotropins (MENOPUR) 75 unit solution for subcutaneous injection Inject 150 Units into the skin daily. 5 Each 4 Active Follitropin Arnoldo (GONAL-F) 1,050 unit recon soln Inject 300 Units into the skin daily. 1 Each 4 Active ganirelix (ANTAGON) 250 mcg/0.5 mL syringe Inject 0.5 mL into the skin daily. 2 Each 4 Active estradioL (ESTRACE) 2 mg tablet Take 1 Tablet by mouth 3 times daily. 90 Tablet 4 Active progesterone in oil 50 mg/mL injection Inject 1 mL into the muscle daily. 3 Each 2 4 Active norgestimate-ethi nyl estradioL (ORTHO-CYCLEN) 0.25-35 mg-mcg per tablet Take 1 Tablet by mouth daily. Take active tabs continuously. Discard inactive tabs (4th row of pills) and begin new pack immediately 56 Tablet 4 12/13/19 24 Discontinued ganirelix (ANTAGON) 250 mcg/0.5 mL syringe Inject 0.5 mL into the skin daily. 8 Each 4 12/10/19 24 Discontinued(Reo rder) Follitropin Arnoldo (GONAL-F) 1,050 unit recon soln Inject 300 Units into the skin daily. 4 Each 4 12/10/19 24 Discontinued(Reo rder) menotropins (MENOPUR) 75 unit solution for subcutaneous injection Inject 150 Units into the skin daily. 15 Each 4 12/09/19 24 Discontinued(Reo rder) progesterone in oil 50 mg/mL injection Inject 1 mL into the muscle daily. 3 Each 1 4 12/29/19 24 Discontinued(Reo rder) estradioL (ESTRACE) 2 mg tablet Take 1 Tablet by mouth 3 times daily. 90 Tablet 4 12/29/19 24 Discontinued(Reo rder) oxyCODONE (ROXICODONE) 5 mg immediate release tablet Take 1 Tablet by mouth every 4 hours as needed for up to 5 doses for Pain. Daily Max: 30 mg 5 Tablet 4 12/29/19 24 Discontinued Hospital, Clinic, or Other Facility Administered Medication Ordered Dose Route Frequency Start Date End Date Status progesterone in oil injection 100 mg 100 mg IM DAILY 12/13/2023 4 Discontinued ceFAZolin in dextrose (iso-os) piggyback 2 g/100 mL 2000 mg INTRAVENOUS NOW X1 12/13/2023 4 Ended Active Problems Problem Noted Date Diagnosed Date Encounter for assisted repro ductive fertility procedure cycle 12/13/2023 Female infertility associated with male factors 09/17/2023 Social History Tobacco Use Types Packs/Day Years Used Date Smoking Tobacco: Never Smokeless Tobacco: Never Tobacco Cessation:Counseling Given: Not Answered Alcohol Use Standard Drinks/Week Comments Not Currently 0 (1 standard drink = 0.6 oz pur e alcohol) Sex and Gender Information Value Date Recorded Sex Assigned at Female 09/07/2023 13:39 EDT Gender Identity Female 09/07/2023 13:39 EDT Sexual Orientation Straight 09/07/2023 13 :39 EDT Last Filed Vital Signs Vital Sign Reading Time Taken Comments Blood Pressure 124/61 01/04/2024 1249 EDT Pulse - - Temperature 36.7 ??C (98 ??F) 01/04/2024 1249 EDT Respiratory Rate 18 01/04/2024 1249 EDT Oxygen Saturation 100% 01/04/2024 1200 EDT Inhaled Oxygen Concentration - - Weight 67.6 kg (149 lb) 01/04/2024 0831 EDT Height 153.7 cm (5' 0.5) 11/26/2023 0838 EDT Body Mass Index 28.62 11/26/2023 0838 EDT Plan of Treatment Upcoming Encounters Date Type Department Care Team (Late st Contact Info) Description 01/13/2024 13:15 EST Telemedicine [facility] Reproductive Medicine & Infertility Center - [facility] [address], [place] [id number] Layla Reid MD [address] [facility], [address] [place] [address] Procedures Procedure Name Priority Date/Time Associated Diagnosis Comments US OB FIRST TRIMESTER (LESS THAN 14 WEEKS) TA AND TV AND LTD DUPLEX STAT 01/04/2024 10:20 EDT HOLD BLUE TOP Routine 01/04/2024 9:30 EDT HOLD LAVENDER TOP Routine 01/04/2024 9:3 0 EDT HOLD GREEN TOP Routine 01/04/2024 9:30 EDT QUANT BETA HCG, STAT 01/04/2024 9:30 EDT QUANT BETA HCG, Routine 01/02/2024 8:26 EDT resulting from assisted reproductive technology in first trimester QUANT BETA HCG, Routine 12/31/2023 9:21 EDT Encounter for in vitro fertilization QUANT BETA HCG, Routine 12/29/2023 9:15 EDT Encounter for in vitro fertilization QUANT BETA HCG, Routine 12/27/2023 9:04 EDT Encounter for in vitro fertilization PROGESTERONE Routine 12/23/2023 9:26 EDT Female infertility ESTRADIOL, ADULTS Routine 12/23/2023 9:2 6 EDT Female infertility PROGESTERONE Routine 12/20/2023 9:33 EDT Female infertility ESTRADIOL, ADULTS Routine 12/20/2023 9:3 3 EDT Female infertility QUANT BETA HCG, Routine 12/20/2023 9:33 EDT Female infertility POC IVF/KIANNA US GUIDANCE Routine 12/16/2023 10:50 EDT Encounter for assisted reproductive fertility procedure cycle PROGESTERONE Routine 12/16/2023 9:37 EDT Encounter for assisted reproductive fertility procedure cycle [Z31.83] ESTRADIOL, ADULTS Routine 12/16/2023 9:3 7 EDT Encounter for assisted reproductive fertility cycle POC IVF/KIANNA US GUIDANCE Routine 12/13/2023 7:59 EDT PROGESTERONE Routine 12/12/2023 7:25 EDT Encounter for assisted reproductive fertility procedure cycle LH Routine 12/12/2023 7:25 EDT Encounter for assisted reproductive fertility procedure cycle ESTRADIOL, ADULTS Routine 12/12/2023 7:2 5 EDT Encounter for assisted reproductive fertility cycle US LINUX SOLARIS ADMINISTRATOR EXAM (KIANNA ONLY) Routine 12/11/2023 9:36 EDT Encounter for assisted reproductive fertility cycle ESTRADIOL, ADULTS Routine 12/11/2023 8:1 2 EDT Encounter for assisted reproductive fertility cycle PROGESTERONE Routine 12/11/2023 8:12 EDT Encounter for assisted reproductive fertility cycle US LINUX SOLARIS ADMINISTRATOR EXAM (KIANNA ONLY) Routine 12/09/2023 7:43 EDT Encounter for assisted reproductive fertility cycle ESTRADIOL, ADULTS Routine 12/07/2023 8:0 7 EDT Encounter for assisted reproductive fertility cycle PROGESTERONE Routine 12/07/2023 8:07 EDT Encounter for assisted reproductive fertility cycle US LINUX SOLARIS ADMINISTRATOR EXAM (KIANNA ONLY) Routine 12/07/2023 7:30 EDT Encounter for assisted reproductive fertility cycle US LINUX SOLARIS ADMINISTRATOR EXAM (KIANNA ONLY) Routine 12/05/2023 8:52 EDT Encounter for assisted reproductive fertility cycle PROGESTERONE Routine 12/05/2023 7:54 EDT Encounter for assisted reproductive fertility cycle ESTRADIOL, ADULTS Routine 12/05/2023 7:5 4 EDT Encounter for assisted reproductive fertility procedure cycle ESTRADIOL, ADULTS Routine 12/03/2023 8:4 5 EDT Encounter for assisted reproductive fertility procedure cycle ESTRADIOL, ADULTS Routine 12/01/2023 8:5 0 EDT Encounter for assisted reproductive fertility procedure cycle ESTRADIOL, ADULTS Routine 11/29/2023 8:4 3 EDT Encounter for assisted reproductive fertility procedure cycle ESTRADIOL, ADULTS Routine 11/26/2023 9:2 9 EDT Encounter for assisted reproductive fertility procedure cycle PROGESTERONE Routine 11/26/2023 9:29 EDT Encounter for assisted reproductive fertility procedure cycle US BASELINE INVITRO Routine 11/26/2023 7 :53 EDT Encounter for assisted reproductive fertility cycle HEPATITIS C AB W REFLEX TO HCV RNA BY PCR Routine 09/06/2023 10:26 EDT Fertility testing Female infertility Routine screening for STI (sexually transmitted infection) Encounter for preconception consultation from Last 3 Months or Most Recently Relevant to Health Maintenance Results * US OB FIRST TRIMESTER (LESS THAN 14 WEEKS) TA AND TV AND LTD DUPLEX (01/04/2024 10:20 EDT) Anatomical Region Laterality Modality Pelvis Ultrasound 01/04/2024 10:3 4 EDT Impressions 01/04/2024 10:34 EDT Findings/Impression: Right ovary: Arterial and venous Doppler waveforms and color flow are normal in the right ovary. Left ovary: Arterial and venous Doppler waveforms and color flow are normal in the left ovary. GRAYSCALE: Indication for Grayscale: ??spotting, abnormal HCG Technique: Grayscale ultrasound of the pelvis was performed, first transabdominally, and then transvaginally. Transabdominal imaging was performed per departmental policy. MATERNAL STRUCTURES: Uterus: The uterus is anteverted. Uterus is normal in size measuring 9.7 x 4.7 x 5.2 cm. No concerning myometrial lesion present. The endometrium measures 1.3 cm in thickness. Fluid collections within uterus: Absent. Right ovary: The right ovary measures 2.7 x 2.5 x 2.5 cm in size, for an estimated right ovarian volume of 9.0 mL. Small 1.3 cm hemorrhagic cyst/follicle present. Left ovary: The left ovary measures 3.7 x 1.8 x 2.7 cm in size, for an estimated left ovarian volume of 9.1 mL. Small 1.2 cm hemorrhagic follicle/cyst. Other adnexal masses: None Free fluid: Trace amount of free fluid present . BIOMETRY/MEASUREMENTS: Last menstrual period: 11/27/2023 = 5 weeks, 3 days Prior ultrasound dating: Not available. [place]-rump length: No pole is identified. IMPRESSION: of unknown location. Differential considerations include non- visualized early intrauterine , non-visualized ectopic , and completed early loss. Follow-up with serial HCG, obstetric ultrasound, and RELAY ENGINEER consultation is suggested. Reference: Mandi Falcon., et al. A lexicon for first-trimester US: Society of Radiologists in Ultrasound Consensus Conference recommendations. Radiology 312.2 (2023): [id number]. [id number] Narrative 01/04/2024 10:34 EDT US OB FIRST TRIMESTER (LESS THAN 14 WEEKS) TA AND TV AND LTD DUPLEX ??01/04/2024 9:45 AM SIGNS AND SYMPTOMS/COMMENTS: ??spotting, abnormal HCG COMPARISON: Pelvic ultrasound on 12/16/2023 DUPLEX: Indication for Duplex: Concern for ovarian torsion and/or mass Technique: Color and spectral Doppler ultrasound of the pelvis was performed. Resulting Agency Comment [id number] Procedure Note Romeo Salinas MD - 01/04/2024 US OB FIRST TRIMESTER (LESS THAN 14 WEEKS) TA AND TV AND LTD [id number]/04/2024 9:45 AM SIGNS AND SYMPTOMS/COMMENTS: spotting, abnormal HCG COMPARISON: Pelvic ultrasound on 12/16/2023 DUPLEX: Indication for Duplex: Concern for ovarian torsion and/or mass Technique: Color and spectral Doppler ultrasound of the pelvis wasperformed. IMPRESSION Findings/Impression: Right ovary: Arterial and venous Doppler waveforms and color flow arenormal in the right ovary. Left ovary: Arterial and venous Doppler waveforms and color flow arenormal in the left ovary. GRAYSCALE: Indication for Grayscale: spotting, abnormal HCG Technique: Grayscale ultrasound of the pelvis was performed, firsttransabdominally, and then transvaginally. Transabdominal imaging wasperformed per departmental policy. MATERNAL STRUCTURES: Uterus: The uterus is anteverted. Uterus is normal in size measuring 9.7 x4.7 x 5.2 cm. No concerning myometrial lesion present. The endometriummeasures 1.3 cm in thickness. Fluid collections within uterus: Absent. Right ovary: The right ovary measures 2.7 x 2.5 x 2.5 cm in size, for anestimated right ovarian volume of 9.0 mL. Small 1.3 cm hemorrhagiccyst/follicle present. Left ovary: The left ovary measures 3.7 x 1.8 x 2.7 cm in size, for anestimated left ovarian volume of 9.1 mL. Small 1.2 cm hemorrhagicfollicle/cyst. Other adnexal masses: None Free fluid: Trace amount of free fluid present . BIOMETRY/MEASUREMENTS: Last menstrual period: 11/27/2023 = 5 weeks, 3 days Prior ultrasound dating: Not available. [place]-rump length: No pole is identified. IMPRESSION: of unknown location. Differential considerations includenon-visualized early intrauterine , non-visualized ectopicpregnancy, and completed early loss. Follow-up with serial HCG,obstetric ultrasound, and RELAY ENGINEER consultation is suggested. Reference: Mandi Falcon., et al. A lexicon for first-trimester US:Society of Radiologists in Ultrasound Consensus Conferencerecommendations. Radiology 312.2 (2023): [id number]. [id number] Kirby Velazquez MD IMG US OB ORDERABLE S * HOLD LAVENDER TOP (01/04/2024 9:30 EDT) Hold Hold 01/04/2024 10:45 EDT [facility] Blood VENOUS BLOOD / Unknown Venipuncture / Unknown 01/04/2024 9:30 EDT 01/04/2024 9:33 EDT Kirby Velazquez MD LAB INFO SERVICE AN D SUPPORT & PHONE RESULT [facility] [address] [place] [address] * HOLD GREEN TOP (01/04/2024 9:30 EDT) Hold Hold 01/04/2024 10:45 EDT [facility] Blood VENOUS BLOOD / Unknown Venipuncture / Unknown 01/04/2024 9:30 EDT 01/04/2024 9:33 EDT Kirby Velazquez MD LAB INFO SERVICE AN D SUPPORT & PHONE RESULT [facility] [address] [place] [address] * HOLD BLUE TOP (01/04/2024 9:30 EDT) Hold Hold 01/04/2024 10:45 EDT [facility] Blood VENOUS BLOOD / Unknown Venipuncture / Unknown 01/04/2024 9:30 EDT 01/04/2024 9:34 EDT Kirby Velazquez MD LAB INFO SERVICE AN D SUPPORT & PHONE RESULT [facility] [address] [place] [place], [place] [id number] * (ABNORMAL) QUANT BETA HCG, (01/04/2024 9:30 EDT) Only the most recent of6 resultswithin the time period is included. Beta HCG Quant, 80(H) <5 mIU/mL 01/04/2024 10:11 EDT [facility] Comment: NOTE: : Negative: Less than 5mIU/mL Indeterminant: Between 5 and 25 mIU/mL, recommend repeat testing in 48 hours Positive: Greater than 25 mIU/mL The results of this assay can be falsely lowered due to the consumption of Biotin. Blood VENOUS BLOOD / Unknown Venipuncture / Unknown 01/04/2024 9:30 EDT 01/04/2024 9:33 EDT Kirby Velazquez MD CHEMISTRY & BLOOD G ORDERABLES [facility] [address] [place] [id number] * PROGESTERONE (12/23/2023 9:26 EDT) Only the most recent of8 resultswithin the time period is included. Pathologist [facility] Progesterone 27.9 See Table ng/mL 12/23/2023 10:46 EDT [facility] Comment: Female Reference [...] VENOUS BLOOD / Unknown Venipuncture / Unknown 12/23/2023 9:26 EDT 12/23/2023 9:55 EDT Cheryl Fuller MD CHEMISTRY & Quick HitO D GAS ORDERABLES [facility] [address] [place] [id number] * ESTRADIOL, ADULTS (12/23/2023 9:26 EDT) Only the most recent of11 resultswithin the time period is included. Estradiol 605 See Note pg/mL 12/23/2023 10:43 EDT [facility] [facility] Comment: NOTE: FEMALE [...] VENOUS BLOOD / Unknown Venipuncture / Unknown 12/23/2023 9:26 EDT 12/23/2023 9:55 EDT Cheryl Fuller MD CHEMISTRY & BLOO D GAS ORDERABLES Performing Organization Address [facility]/ZIP Co de Phone Number [facility] [address] [place] [address] * POC IVF/KIANNA US GUIDANCE (12/16/2023 10:50 EDT) Narrative 12/16/2023 10:50 EDT This is a non-reportable exam. Layla Reid MD G US POC ORDERA BLES * POC IVF/KIANNA US GUIDANCE (12/13/2023 7:59 EDT) Narrative 12/13/2023 7:59 EDT This is a non-reportable exam. Layla Reid MD [facility] US POC ORDERA BLES * LH (12/12/2023 7:25 EDT) Luteinizing Hormone 10.5 See Note mIU/mL 12/12/2023 9:39 EDT [facility] Comment: NOTE: Female Reference Ranges: Pre-Pubertal: ?<6.0 mIU/mL Menstruating: Follicular Phase(-12 to -4 days: ??1.9 - 12.5 mIU/mL Midcycle(-3 to +2 days): ?8.7 - 76.3 mIU/mL Luteal Phase(+4 to +12 days): ? 0.5 - 16.9 mIU/mL Post Menopausal: 15.9 - 54.0 mIU/mL Blood VENOUS BLOOD / Unknown Venipuncture / Unknown 12/12/2023 7:25 EDT 12/12/2023 7:58 EDT Aurora Hinton MD CHEMISTRY & BLOOD GA S ORDERABLES [facility] [address] [place] [id number] * US LINUX SOLARIS ADMINISTRATOR EXAM (KIANNA ONLY) (12/11/2023 9:36 EDT) Anatomical Region Laterality Modality Ultrasound 12/11/2023 8:48 EDT Narrative 12/11/2023 10:10 EDT Indication ======== Med Day 14, Antag on GN --/1 Male factor (s/p vasectomy with TESE sample) Uterus ====== Uterus: ?Appears normal Uterus position: ?? Anteverted Myometrium: ?Appears normal Endometrium: ?? Trilaminar endometrium Cervix details: ?Normal appearance Endometrial thickness, total ?? 8.6 mm Right Ovary ========= Rt ovary: ??Stimulated w/ multiple follicles consistent w/ hormonal therapy Rt ovarian follicle D1 22.6 mm Rt ovarian follicle D2 27.7 mm Rt ovarian follicle D3 22.4 mm Rt ovarian follicle mean ?? 24.2 mm Rt ovarian follicle vol ?7.340 cm cubed Rt ovarian follicle D1 25.5 mm Rt ovarian follicle D2 14.1 mm Rt ovarian follicle D3 17.6 mm Rt ovarian follicle mean ?? 19.1 mm Rt ovarian follicle vol ?3.321 cm cubed Rt ovarian follicle D1 26.0 mm Rt ovarian follicle D2 15.6 mm Rt ovarian follicle D3 15.2 mm Rt ovarian follicle mean ?? 18.9 mm Rt ovarian follicle vol ?3.231 cm cubed Rt ovarian follicle D1 26.3 mm Rt ovarian follicle D2 3.6 mm Rt ovarian follicle D3 24.9 mm Rt ovarian follicle mean ?? 18.3 mm Rt ovarian follicle vol ?1.229 cm cubed Rt ovarian follicle D1 21.1 mm Rt ovarian follicle D2 13.7 mm Rt ovarian follicle D3 20.0 mm Rt ovarian follicle mean ?? 18.3 mm Rt ovarian follicle vol ?3.036 cm cubed Rt ovarian follicle D1 18.0 mm Rt ovarian follicle D2 14.4 mm Rt ovarian follicle D3 14.9 mm Rt ovarian follicle mean ?? 15.8 mm Rt ovarian follicle vol ?2.025 cm cubed Rt ovarian follicle D1 18.6 mm Rt ovarian follicle D2 11.5 mm Rt ovarian follicle D3 13.6 mm Rt ovarian follicle mean ?? 14.6 mm Rt ovarian follicle vol ?1.519 cm cubed Rt ovarian follicle D1 22.0 mm Rt ovarian follicle D2 10.0 mm Rt ovarian follicle D3 11.6 mm Rt ovarian follicle mean ?? 14.6 mm Rt ovarian follicle vol ?1.348 cm cubed Rt ovarian follicle D1 15.0 mm Rt ovarian follicle D2 14.7 mm Rt ovarian follicle D3 14.1 mm Rt ovarian follicle mean ?? 14.6 mm Rt ovarian follicle vol ?1.630 cm cubed Rt ovarian follicle D1 12.1 mm Rt ovarian follicle D2 14.8 mm Rt ovarian follicle mean ?? 13.5 mm Rt ovarian follicle vol ?1.135 cm cubed Rt ovarian follicle D1 11.1 mm Rt ovarian follicle D2 14.2 mm Rt ovarian follicle D3 14.3 mm Rt ovarian follicle mean ?? 13.2 mm Rt ovarian follicle vol ?1.182 cm cubed Rt ovarian follicle D1 13.3 mm Rt ovarian follicle D2 12.1 mm Rt ovarian follicle D3 13.6 mm Rt ovarian follicle mean ?? 13.0 mm Rt ovarian follicle vol ?1.140 cm cubed Rt ovarian follicle D1 12.9 mm Rt ovarian follicle D2 11.1 mm Rt ovarian follicle D3 14.8 mm Rt ovarian follicle mean ?? 12.9 mm Rt ovarian follicle vol ?1.107 cm cubed Rt ovarian follicle D1 15.7 mm Rt ovarian follicle D2 9.5 mm Rt ovarian follicle D3 13.6 mm Rt ovarian follicle mean ?? 12.9 mm Rt ovarian follicle vol ?1.065 cm cubed Rt ovarian follicle D1 15.1 mm Rt ovarian follicle D2 7.7 mm Rt ovarian follicle D3 9.8 mm Rt ovarian follicle mean ?? 10.9 mm Rt ovarian follicle vol ?0.598 cm cubed Rt SonoAVC D (Vol) 24.4 mm Rt SonoAVC Dx ??31.0 mm Rt SonoAVC Dy ??26.4 mm Rt SonoAVC Dz ??21.1 mm Rt SonoAVC mean ?26.2 mm Rt SonoAVC vol 7.600 cm cubed Rt SonoAVC D (Vol) 17.2 mm Rt SonoAVC Dx ??28.4 mm Rt SonoAVC Dy ??15.8 mm Rt SonoAVC Dz ??13.2 mm Rt SonoAVC mean ?19.1 mm Rt SonoAVC vol 2.650 cm cubed Rt SonoAVC D (Vol) 17.3 mm Rt SonoAVC Dx ??23.9 mm Rt SonoAVC Dy ??18.6 mm Rt SonoAVC Dz ??14.3 mm Rt SonoAVC mean ?18.9 mm Rt SonoAVC vol 2.700 cm cubed Rt SonoAVC D (Vol) 16.7 mm Rt SonoAVC Dx ??22.1 mm Rt SonoAVC Dy ??19.8 mm Rt SonoAVC Dz ??11.7 mm Rt SonoAVC mean ?17.9 mm Rt SonoAVC vol 2.430 cm cubed Rt SonoAVC D (Vol) 15.0 mm Rt SonoAVC Dx ??21.8 mm Rt SonoAVC Dy ??20.0 mm Rt SonoAVC Dz ??9.0 mm Rt SonoAVC mean ?16.9 mm Rt SonoAVC vol 1.760 cm cubed Rt SonoAVC D (Vol) 16.3 mm Rt SonoAVC Dx ??20.9 mm Rt SonoAVC Dy ??16.0 mm Rt SonoAVC Dz ??13.6 mm Rt SonoAVC mean ?16.8 mm Rt SonoAVC vol 2.260 cm cubed Rt SonoAVC D (Vol) 15.3 mm Rt SonoAVC Dx ??20.7 mm Rt SonoAVC Dy ??14.4 mm Rt SonoAVC Dz ??12.9 mm Rt SonoAVC mean ?16.0 mm Rt SonoAVC vol 1.870 cm cubed Rt SonoAVC D (Vol) 14.4 mm Rt SonoAVC Dx ??20.5 mm Rt SonoAVC Dy ??13.2 mm Rt SonoAVC Dz ??12.3 mm Rt SonoAVC mean ?15.3 mm Rt SonoAVC vol 1.570 cm cubed Rt SonoAVC D (Vol) 13.8 mm Rt SonoAVC Dx ??18.5 mm Rt SonoAVC Dy ??15.9 mm Rt SonoAVC Dz ??11.0 mm Rt SonoAVC mean ?15.1 mm Rt SonoAVC vol 1.370 cm cubed Rt SonoAVC D (Vol) 12.7 mm Rt SonoAVC Dx ??20.9 mm Rt SonoAVC Dy ??14.0 mm Rt SonoAVC Dz ??9.1 mm Rt SonoAVC mean ?14.7 mm Rt SonoAVC vol 1.070 cm cubed Rt SonoAVC D (Vol) 13.0 mm Rt SonoAVC Dx ??17.0 mm Rt SonoAVC Dy ??14.1 mm Rt SonoAVC Dz ??9.8 mm Rt SonoAVC mean ?13.7 mm Rt SonoAVC vol 1.150 cm cubed Rt SonoAVC D (Vol) 11.1 mm Rt SonoAVC Dx ??18.4 mm Rt SonoAVC Dy ??13.1 mm Rt SonoAVC Dz ??6.8 mm Rt SonoAVC mean ?12.7 mm Rt SonoAVC vol 0.710 cm cubed Rt SonoAVC D (Vol) 12.0 mm Rt SonoAVC Dx ??14.6 mm Rt SonoAVC Dy ??12.3 mm Rt SonoAVC Dz ??10.7 mm Rt SonoAVC mean ?12.6 mm Rt SonoAVC vol 0.910 cm cubed Rt SonoAVC D (Vol) 10.4 mm Rt SonoAVC Dx ??14.1 mm Rt SonoAVC Dy ??11.2 mm Rt SonoAVC Dz ??7.9 mm Rt SonoAVC mean ?11.0 mm Rt SonoAVC vol 0.590 cm cubed Rt SonoAVC D (Vol) 10.1 mm Rt SonoAVC Dx ??13.7 mm Rt SonoAVC Dy ??11.5 mm Rt SonoAVC Dz ??7.7 mm Rt SonoAVC mean ?11.0 mm Rt SonoAVC vol 0.540 cm cubed Rt SonoAVC D (Vol) 10.4 mm Rt SonoAVC Dx ??13.9 mm Rt SonoAVC Dy ??11.1 mm Rt SonoAVC Dz ??7.6 mm Rt SonoAVC mean ?10.9 mm Rt SonoAVC vol 0.590 cm cubed Rt SonoAVC D (Vol) 9.6 mm Rt SonoAVC Dx ??16.2 mm Rt SonoAVC Dy ??9.2 mm Rt SonoAVC Dz ??6.5 mm Rt SonoAVC mean ?10.7 mm Rt SonoAVC vol 0.460 cm cubed Rt SonoAVC D (Vol) 8.8 mm Rt SonoAVC Dx ??12.5 mm Rt SonoAVC Dy ??10.0 mm Rt SonoAVC Dz ??7.8 mm Rt SonoAVC mean ?10.1 mm Rt SonoAVC vol 0.360 cm cubed Rt SonoAVC D (Vol) 8.0 mm Rt SonoAVC Dx ??9.6 mm Rt SonoAVC Dy ??7.7 mm Rt SonoAVC Dz ??7.4 mm Rt SonoAVC mean ?8.2 mm Rt SonoAVC vol 0.270 cm cubed Rt SonoAVC D (Vol) 7.6 mm Rt SonoAVC Dx ??9.1 mm Rt SonoAVC Dy ??8.8 mm Rt SonoAVC Dz ??6.3 mm Rt SonoAVC mean ?8.1 mm Rt SonoAVC vol 0.230 cm cubed Rt SonoAVC D (Vol) 7.2 mm Rt SonoAVC Dx ??9.0 mm Rt SonoAVC Dy ??8.0 mm Rt SonoAVC Dz ??5.5 mm Rt SonoAVC mean ?7.5 mm Rt SonoAVC vol 0.190 cm cubed Rt SonoAVC D (Vol) 6.9 mm Rt SonoAVC Dx ??10.5 mm Rt SonoAVC Dy ??7.9 mm Rt SonoAVC Dz ??4.1 mm Rt SonoAVC mean ?7.5 mm Rt SonoAVC vol 0.170 cm cubed Rt SonoAVC D (Vol) 5.6 mm Rt SonoAVC Dx ??8.0 mm Rt SonoAVC Dy ??5.3 mm Rt SonoAVC Dz ??4.4 mm Rt SonoAVC mean ?5.9 mm Rt SonoAVC vol 0.090 cm cubed Rt SonoAVC D (Vol) 5.1 mm Rt SonoAVC Dx ??6.7 mm Rt SonoAVC Dy ??4.8 mm Rt SonoAVC Dz ??4.2 mm Rt SonoAVC mean ?5.3 mm Rt SonoAVC vol 0.070 cm cubed Rt SonoAVC D (Vol) 5.0 mm Rt SonoAVC Dx ??7.2 mm Rt SonoAVC Dy ??5.2 mm Rt SonoAVC Dz ??3.6 mm Rt SonoAVC mean ?5.3 mm Rt SonoAVC vol 0.060 cm cubed Rt SonoAVC D (Vol) 4.9 mm Rt SonoAVC Dx ??7.8 mm Rt SonoAVC Dy ??4.9 mm Rt SonoAVC Dz ??3.3 mm Rt SonoAVC mean ?5.3 mm Rt SonoAVC vol 0.060 cm cubed Rt SonoAVC D (Vol) 2.9 mm Rt SonoAVC Dx ??4.5 mm Rt SonoAVC Dy ??3.4 mm Rt SonoAVC Dz ??1.6 mm Rt SonoAVC mean ?3.2 mm Rt SonoAVC vol 0.010 cm cubed Rt SonoAVC D (Vol) 2.9 mm Rt SonoAVC Dx ??4.2 mm Rt SonoAVC Dy ??3.1 mm Rt SonoAVC Dz ??1.9 mm Rt SonoAVC mean ?3.1 mm Rt SonoAVC vol 0.010 cm cubed Left Ovary ======== Lt ovary: ??Stimulated w/ multiple follicles consistent w/ hormonal therapy Lt ovarian follicle D1 24.3 mm Lt ovarian follicle D2 22.5 mm Lt ovarian follicle D3 20.7 mm Lt ovarian follicle mean ?? 22.5 mm Lt ovarian follicle vol ?5.944 cm cubed Lt ovarian follicle D1 19.3 mm Lt ovarian follicle D2 10.2 mm Lt ovarian follicle D3 24.1 mm Lt ovarian follicle mean ?? 17.9 mm Lt ovarian follicle vol ?2.487 cm cubed Lt ovarian follicle D1 17.8 mm Lt ovarian follicle D2 16.9 mm Lt ovarian follicle D3 15.3 mm Lt ovarian follicle mean ?? 16.7 mm Lt ovarian follicle vol ?2.411 cm cubed Lt ovarian follicle D1 18.1 mm Lt ovarian follicle D2 14.2 mm Lt ovarian follicle D3 17.3 mm Lt ovarian follicle mean ?? 16.5 mm Lt ovarian follicle vol ?2.318 cm cubed Lt ovarian follicle D1 19.8 mm Lt ovarian follicle D2 14.0 mm Lt ovarian follicle D3 15.5 mm Lt ovarian follicle mean ?? 16.4 mm Lt ovarian follicle vol ?2.255 cm cubed Lt ovarian follicle D1 12.7 mm Lt ovarian follicle D2 18.8 mm Lt ovarian follicle D3 17.2 mm Lt ovarian follicle mean ?? 16.2 mm Lt ovarian follicle vol ?2.157 cm cubed Lt ovarian follicle D1 18.1 mm Lt ovarian follicle D2 14.5 mm Lt ovarian follicle D3 15.6 mm Lt ovarian follicle mean ?? 16.1 mm Lt ovarian follicle vol ?2.152 cm cubed Lt ovarian follicle D1 15.8 mm Lt ovarian follicle D2 10.9 mm Lt ovarian follicle D3 21.3 mm Lt ovarian follicle mean ?? 16.0 mm Lt ovarian follicle vol ?1.916 cm cubed Lt ovarian follicle D1 19.2 mm Lt ovarian follicle D2 12.9 mm Lt ovarian follicle D3 15.2 mm Lt ovarian follicle mean ?? 15.8 mm Lt ovarian follicle vol ?1.973 cm cubed Lt ovarian follicle D1 17.7 mm Lt ovarian follicle D2 14.2 mm Lt ovarian follicle D3 15.5 mm Lt ovarian follicle mean ?? 15.8 mm Lt ovarian follicle vol ?2.049 cm cubed Lt ovarian follicle D1 23.6 mm Lt ovarian follicle D2 10.3 mm Lt ovarian follicle D3 7.8 mm Lt ovarian follicle mean ?? 13.9 mm Lt ovarian follicle vol ?0.988 cm cubed Lt SonoAVC D (Vol) 18.4 mm Lt SonoAVC Dx ??22.2 mm Lt SonoAVC Dy ??21.4 mm Lt SonoAVC Dz ??13.9 mm Lt SonoAVC mean ?19.2 mm Lt SonoAVC vol 3.260 cm cubed Lt SonoAVC D (Vol) 15.8 mm Lt SonoAVC Dx ??22.1 mm Lt SonoAVC Dy ??17.4 mm Lt SonoAVC Dz ??11.7 mm Lt SonoAVC mean ?17.1 mm Lt SonoAVC vol 2.050 cm cubed Lt SonoAVC D (Vol) 15.6 mm Lt SonoAVC Dx ??21.7 mm Lt SonoAVC Dy ??15.9 mm Lt SonoAVC Dz ??11.6 mm Lt SonoAVC mean ?16.4 mm Lt SonoAVC vol 1.990 cm cubed Lt SonoAVC D (Vol) 15.1 mm Lt SonoAVC Dx ??28.9 mm Lt SonoAVC Dy ??18.7 mm Lt SonoAVC Dz ??8.1 mm Lt SonoAVC mean ?18.6 mm Lt SonoAVC vol 1.810 cm cubed Lt SonoAVC D (Vol) 14.9 mm Lt SonoAVC Dx ??23.6 mm Lt SonoAVC Dy ??14.6 mm Lt SonoAVC Dz ??10.3 mm Lt SonoAVC mean ?16.2 mm Lt SonoAVC vol 1.750 cm cubed Lt SonoAVC D (Vol) 14.2 mm Lt SonoAVC Dx ??20.0 mm Lt SonoAVC Dy ??17.2 mm Lt SonoAVC Dz ??9.8 mm Lt SonoAVC mean ?15.6 mm Lt SonoAVC vol 1.490 cm cubed Lt SonoAVC D (Vol) 14.1 mm Lt SonoAVC Dx ??25.6 mm Lt SonoAVC Dy ??18.8 mm Lt SonoAVC Dz ??7.7 mm Lt SonoAVC mean ?17.4 mm Lt SonoAVC vol 1.450 cm cubed Lt SonoAVC D (Vol) 13.9 mm Lt SonoAVC Dx ??19.9 mm Lt SonoAVC Dy ??16.4 mm Lt SonoAVC Dz ??9.8 mm Lt SonoAVC mean ?15.4 mm Lt SonoAVC vol 1.420 cm cubed Lt SonoAVC D (Vol) 12.9 mm Lt SonoAVC Dx ??17.5 mm Lt SonoAVC Dy ??13.5 mm Lt SonoAVC Dz ??10.7 mm Lt SonoAVC mean ?13.9 mm Lt SonoAVC vol 1.130 cm cubed Lt SonoAVC D (Vol) 12.8 mm Lt SonoAVC Dx ??13.9 mm Lt SonoAVC Dy ??13.3 mm Lt SonoAVC Dz ??12.1 mm Lt SonoAVC mean ?13.1 mm Lt SonoAVC vol 1.090 cm cubed Lt SonoAVC D (Vol) 12.4 mm Lt SonoAVC Dx ??12.6 mm Lt SonoAVC Dy ??12.6 mm Lt SonoAVC Dz ??12.1 mm Lt SonoAVC mean ?12.4 mm Lt SonoAVC vol 1.010 cm cubed Lt SonoAVC D (Vol) 11.2 mm Lt SonoAVC Dx ??17.1 mm Lt SonoAVC Dy ??12.2 mm Lt SonoAVC Dz ??7.9 mm Lt SonoAVC mean ?12.4 mm Lt SonoAVC vol 0.730 cm cubed Lt SonoAVC D (Vol) 9.9 mm Lt SonoAVC Dx ??13.0 mm Lt SonoAVC Dy ??11.5 mm Lt SonoAVC Dz ??8.1 mm Lt SonoAVC mean ?10.9 mm Lt SonoAVC vol 0.510 cm cubed Lt SonoAVC D (Vol) 9.3 mm Lt SonoAVC Dx ??14.5 mm Lt SonoAVC Dy ??11.9 mm Lt SonoAVC Dz ??5.5 mm Lt SonoAVC mean ?10.6 mm Lt SonoAVC vol 0.420 cm cubed Lt SonoAVC D (Vol) 8.8 mm Lt SonoAVC Dx ??11.3 mm Lt SonoAVC Dy ??9.1 mm Lt SonoAVC Dz ??7.1 mm Lt SonoAVC mean ?9.2 mm Lt SonoAVC vol 0.360 cm cubed Lt SonoAVC D (Vol) 8.7 mm Lt SonoAVC Dx ??13.4 mm Lt SonoAVC Dy ??8.3 mm Lt SonoAVC Dz ??7.1 mm Lt SonoAVC mean ?9.6 mm Lt SonoAVC vol 0.350 cm cubed Lt SonoAVC D (Vol) 8.7 mm Lt SonoAVC Dx ??10.2 mm Lt SonoAVC Dy ??9.7 mm Lt SonoAVC Dz ??6.9 mm Lt SonoAVC mean ?8.9 mm Lt SonoAVC vol 0.350 cm cubed Lt SonoAVC D (Vol) 8.6 mm Lt SonoAVC Dx ??21.5 mm Lt SonoAVC Dy ??7.2 mm Lt SonoAVC Dz ??4.8 mm Lt SonoAVC mean ?11.1 mm Lt SonoAVC vol 0.330 cm cubed Lt SonoAVC D (Vol) 8.4 mm Lt SonoAVC Dx ??13.6 mm Lt SonoAVC Dy ??9.1 mm Lt SonoAVC Dz ??5.6 mm Lt SonoAVC mean ?9.4 mm Lt SonoAVC vol 0.310 cm cubed Lt SonoAVC D (Vol) 8.3 mm Lt SonoAVC Dx ??11.9 mm Lt SonoAVC Dy ??9.3 mm Lt SonoAVC Dz ??6.0 mm Lt SonoAVC mean ?9.1 mm Lt SonoAVC vol 0.300 cm cubed Lt SonoAVC D (Vol) 8.3 mm Lt SonoAVC Dx ??14.9 mm Lt SonoAVC Dy ??10.0 mm Lt SonoAVC Dz ??4.3 mm Lt SonoAVC mean ?9.7 mm Lt SonoAVC vol 0.300 cm cubed Lt SonoAVC D (Vol) 6.8 mm Lt SonoAVC Dx ??11.1 mm Lt SonoAVC Dy ??6.6 mm Lt SonoAVC Dz ??4.6 mm Lt SonoAVC mean ?7.4 mm Lt SonoAVC vol 0.170 cm cubed Lt SonoAVC D (Vol) 3.8 mm Lt SonoAVC Dx ??4.8 mm Lt SonoAVC Dy ??4.2 mm Lt SonoAVC Dz ??2.8 mm Lt SonoAVC mean ?3.9 mm Lt SonoAVC vol 0.030 cm cubed Lt SonoAVC D (Vol) 3.0 mm Lt SonoAVC Dx ??5.3 mm Lt SonoAVC Dy ??2.8 mm Lt SonoAVC Dz ??1.9 mm Lt SonoAVC mean ?3.3 mm Lt SonoAVC vol 0.010 cm cubed [place] ========= Appears normal. Free fluid visualized: mild Impression ========= USE (IVF Follicular) - [id number] 1. Uterus appears normal with trilaminar endometrium. 2. Ovarian follicles appear to be in late folliculogenesis. 3. Small amount of fluid in the cul [place] sac. Follow-up ======== Labs today, plan per ART team. Comment ======== N97.8 female infertility, other DATE OF SERVICE: 12/11/2023 Procedure Note Aurora Hinton MD - 12/11/2023 Indication ======== Med Day 14, Antag on GN --/1 Male factor (s/p vasectomy with TESE sample) Uterus ====== Uterus: Appears normal Uterus position: Anteverted Myometrium: Appears normal Endometrium: Trilaminar endometrium Cervix details: Normal appearance Endometrial thickness, total 8.6 mm Right Ovary ========= Rt ovary: Stimulated w/ multiple follicles consistent w/ hormonaltherapy Rt ovarian follicle D1 22.6 mm Rt ovarian follicle D2 27.7 mm Rt ovarian follicle D3 22.4 mm Rt ovarian follicle mean 24.2 mm Rt ovarian follicle vol 7.340 cm cubed Rt ovarian follicle D1 25.5 mm Rt ovarian follicle D2 14.1 mm Rt ovarian follicle D3 17.6 mm Rt ovarian follicle mean 19.1 mm Rt ovarian follicle vol 3.321 cm cubed Rt ovarian follicle D1 26.0 mm Rt ovarian follicle D2 15.6 mm Rt ovarian follicle D3 15.2 mm Rt ovarian follicle mean 18.9 mm Rt ovarian follicle vol 3.231 cm cubed Rt ovarian follicle D1 26.3 mm Rt ovarian follicle D2 3.6 mm Rt ovarian follicle D3 24.9 mm Rt ovarian follicle mean 18.3 mm Rt ovarian follicle vol 1.229 cm cubed Rt ovarian follicle D1 21.1 mm Rt ovarian follicle D2 13.7 mm Rt ovarian follicle D3 20.0 mm Rt ovarian follicle mean 18.3 mm Rt ovarian follicle vol 3.036 cm cubed Rt ovarian follicle D1 18.0 mm Rt ovarian follicle D2 14.4 mm Rt ovarian follicle D3 14.9 mm Rt ovarian follicle mean 15.8 mm Rt ovarian follicle vol 2.025 cm cubed Rt ovarian follicle D1 18.6 mm Rt ovarian follicle D2 11.5 mm Rt ovarian follicle D3 13.6 mm Rt ovarian follicle mean 14.6 mm Rt ovarian follicle vol 1.519 cm cubed Rt ovarian follicle D1 22.0 mm Rt ovarian follicle D2 10.0 mm Rt ovarian follicle D3 11.6 mm Rt ovarian follicle mean 14.6 mm Rt ovarian follicle vol 1.348 cm cubed Rt ovarian follicle D1 15.0 mm Rt ovarian follicle D2 14.7 mm Rt ovarian follicle D3 14.1 mm Rt ovarian follicle mean 14.6 mm Rt ovarian follicle vol 1.630 cm cubed Rt ovarian follicle D1 12.1 mm Rt ovarian follicle D2 14.8 mm Rt ovarian follicle mean 13.5 mm Rt ovarian follicle vol 1.135 cm cubed Rt ovarian follicle D1 11.1 mm Rt ovarian follicle D2 14.2 mm Rt ovarian follicle D3 14.3 mm Rt ovarian follicle mean 13.2 mm Rt ovarian follicle vol 1.182 cm cubed Rt ovarian follicle D1 13.3 mm Rt ovarian follicle D2 12.1 mm Rt ovarian follicle D3 13.6 mm Rt ovarian follicle mean 13.0 mm Rt ovarian follicle vol 1.140 cm cubed Rt ovarian follicle D1 12.9 mm Rt ovarian follicle D2 11.1 mm Rt ovarian follicle D3 14.8 mm Rt ovarian follicle mean 12.9 mm Rt ovarian follicle vol 1.107 cm cubed Rt ovarian follicle D1 15.7 mm Rt ovarian follicle D2 9.5 mm Rt ovarian follicle D3 13.6 mm Rt ovarian follicle mean 12.9 mm Rt ovarian follicle vol 1.065 cm cubed Rt ovarian follicle D1 15.1 mm Rt ovarian follicle D2 7.7 mm Rt ovarian follicle D3 9.8 mm Rt ovarian follicle mean 10.9 mm Rt ovarian follicle vol 0.598 cm cubed Rt SonoAVC D (Vol) 24.4 mm Rt SonoAVC Dx 31.0 mm Rt SonoAVC Dy 26.4 mm Rt SonoAVC Dz 21.1 mm Rt SonoAVC mean 26.2 mm Rt SonoAVC vol 7.600 cm cubed Rt SonoAVC D (Vol) 17.2 mm Rt SonoAVC Dx 28.4 mm Rt SonoAVC Dy 15.8 mm Rt SonoAVC Dz 13.2 mm Rt SonoAVC mean 19.1 mm Rt SonoAVC vol 2.650 cm cubed Rt SonoAVC D (Vol) 17.3 mm Rt SonoAVC Dx 23.9 mm Rt SonoAVC Dy 18.6 mm Rt SonoAVC Dz 14.3 mm Rt SonoAVC mean 18.9 mm Rt SonoAVC vol 2.700 cm cubed Rt SonoAVC D (Vol) 16.7 mm Rt SonoAVC Dx 22.1 mm Rt SonoAVC Dy 19.8 mm Rt SonoAVC Dz 11.7 mm Rt SonoAVC mean 17.9 mm Rt SonoAVC vol 2.430 cm cubed Rt SonoAVC D (Vol) 15.0 mm Rt SonoAVC Dx 21.8 mm Rt SonoAVC Dy 20.0 mm Rt SonoAVC Dz 9.0 mm Rt SonoAVC mean 16.9 mm Rt SonoAVC vol 1.760 cm cubed Rt SonoAVC D (Vol) 16.3 mm Rt SonoAVC Dx 20.9 mm Rt SonoAVC Dy 16.0 mm Rt SonoAVC Dz 13.6 mm Rt SonoAVC mean 16.8 mm Rt SonoAVC vol 2.260 cm cubed Rt SonoAVC D (Vol) 15.3 mm Rt SonoAVC Dx 20.7 mm Rt SonoAVC Dy 14.4 mm Rt SonoAVC Dz 12.9 mm Rt SonoAVC mean 16.0 mm Rt SonoAVC vol 1.870 cm cubed Rt SonoAVC D (Vol) 14.4 mm Rt SonoAVC Dx 20.5 mm Rt SonoAVC Dy 13.2 mm Rt SonoAVC Dz 12.3 mm Rt SonoAVC mean 15.3 mm Rt SonoAVC vol 1.570 cm cubed Rt SonoAVC D (Vol) 13.8 mm Rt SonoAVC Dx 18.5 mm Rt SonoAVC Dy 15.9 mm Rt SonoAVC Dz 11.0 mm Rt SonoAVC mean 15.1 mm Rt SonoAVC vol 1.370 cm cubed Rt SonoAVC D (Vol) 12.7 mm Rt SonoAVC Dx 20.9 mm Rt SonoAVC Dy 14.0 mm Rt SonoAVC Dz 9.1 mm Rt SonoAVC mean 14.7 mm Rt SonoAVC vol 1.070 cm cubed Rt SonoAVC D (Vol) 13.0 mm Rt SonoAVC Dx 17.0 mm Rt SonoAVC Dy 14.1 mm Rt SonoAVC Dz 9.8 mm Rt SonoAVC mean 13.7 mm Rt SonoAVC vol 1.150 cm cubed Rt SonoAVC D (Vol) 11.1 mm Rt SonoAVC Dx 18.4 mm Rt SonoAVC Dy 13.1 mm Rt SonoAVC Dz 6.8 mm Rt SonoAVC mean 12.7 mm Rt SonoAVC vol 0.710 cm cubed Rt SonoAVC D (Vol) 12.0 mm Rt SonoAVC Dx 14.6 mm Rt SonoAVC Dy 12.3 mm Rt SonoAVC Dz 10.7 mm Rt SonoAVC mean 12.6 mm Rt SonoAVC vol 0.910 cm cubed Rt SonoAVC D (Vol) 10.4 mm Rt SonoAVC Dx 14.1 mm Rt SonoAVC Dy 11.2 mm Rt SonoAVC Dz 7.9 mm Rt SonoAVC mean 11.0 mm Rt SonoAVC vol 0.590 cm cubed Rt SonoAVC D (Vol) 10.1 mm Rt SonoAVC Dx 13.7 mm Rt SonoAVC Dy 11.5 mm Rt [facility] Dz 7.7 mm Rt [facility] mean 11.0 mm Rt [facility] vol 0.540 cm cubed Rt [facility] D (Vol) 10.4 mm Rt [facility] Dx 13.9 mm Rt [facility] Dy 11.1 mm Rt [facility] Dz 7.6 mm Rt [facility] mean 10.9 mm Rt [facility] vol 0.590 cm cubed Rt [facility] D (Vol) 9.6 mm Rt [facility] Dx 16.2 mm Rt [facility] Dy 9.2 mm Rt [facility] Dz 6.5 mm Rt [facility] mean 10.7 mm Rt [facility] vol 0.460 cm cubed Rt [facility] D (Vol) 8.8 mm Rt [facility] Dx 12.5 mm Rt [facility] Dy 10.0 mm Rt [facility] Dz 7.8 mm Rt [facility] mean 10.1 mm Rt [facility] vol 0.360 cm cubed Rt [facility] D (Vol) 8.0 mm Rt [facility] Dx 9.6 mm Rt [facility] Dy 7.7 mm Rt [facility] Dz 7.4 mm Rt [facility] mean 8.2 mm Rt [facility] vol 0.270 cm cubed Rt [facility] D (Vol) 7.6 mm Rt [facility] Dx 9.1 mm Rt [facility] Dy 8.8 mm Rt [facility] Dz 6.3 mm Rt [facility] mean 8.1 mm Rt [facility] vol 0.230 cm cubed Rt [facility] D (Vol) 7.2 mm Rt [facility] Dx 9.0 mm Rt [facility] Dy 8.0 mm Rt [facility] Dz 5.5 mm Rt [facility] mean 7.5 mm Rt [facility] vol 0.190 cm cubed Rt [facility] D (Vol) 6.9 mm Rt [facility] Dx 10.5 mm Rt [facility] Dy 7.9 mm Rt [facility] Dz 4.1 mm Rt [facility] mean 7.5 mm Rt [facility] vol 0.170 cm cubed Rt [facility] D (Vol) 5.6 mm Rt [facility] Dx 8.0 mm Rt [facility] Dy 5.3 mm Rt [facility] Dz 4.4 mm Rt [facility] mean 5.9 mm Rt [facility] vol 0.090 cm cubed Rt [facility] D (Vol) 5.1 mm Rt [facility] Dx 6.7 mm Rt [facility] Dy 4.8 mm Rt [facility] Dz 4.2 mm Rt [facility] mean 5.3 mm Rt [facility] vol 0.070 cm cubed Rt [facility] D (Vol) 5.0 mm Rt [facility] Dx 7.2 mm Rt [facility] Dy 5.2 mm Rt [facility] Dz 3.6 mm Rt [facility] mean 5.3 mm Rt [facility] vol 0.060 cm cubed Rt [facility] D (Vol) 4.9 mm Rt [facility] Dx 7.8 mm Rt [facility] Dy 4.9 mm Rt [facility] Dz 3.3 mm Rt [facility] mean 5.3 mm Rt [facility] vol 0.060 cm cubed Rt [facility] D (Vol) 2.9 mm Rt [facility] Dx 4.5 mm Rt [facility] Dy 3.4 mm Rt [facility] Dz 1.6 mm Rt [facility] mean 3.2 mm Rt [facility] vol 0.010 cm cubed Rt [facility] D (Vol) 2.9 mm Rt [facility] Dx 4.2 mm Rt [facility] Dy 3.1 mm Rt [facility] Dz 1.9 mm Rt [facility] mean 3.1 mm Rt [facility] vol 0.010 cm cubed Left Ovary ======== Lt ovary: Stimulated w/ multiple follicles consistent w/ hormonaltherapy Lt ovarian follicle D1 24.3 mm Lt ovarian follicle D2 22.5 mm Lt ovarian follicle D3 20.7 mm Lt ovarian follicle mean 22.5 mm Lt ovarian follicle vol 5.944 cm cubed Lt ovarian follicle D1 19.3 mm Lt ovarian follicle D2 10.2 mm Lt ovarian follicle D3 24.1 mm Lt ovarian follicle mean 17.9 mm Lt ovarian follicle vol 2.487 cm cubed Lt ovarian follicle D1 17.8 mm Lt ovarian follicle D2 16.9 mm Lt ovarian follicle D3 15.3 mm Lt ovarian follicle mean 16.7 mm Lt ovarian follicle vol 2.411 cm cubed Lt ovarian follicle D1 18.1 mm Lt ovarian follicle D2 14.2 mm Lt ovarian follicle D3 17.3 mm Lt ovarian follicle mean 16.5 mm Lt ovarian follicle vol 2.318 cm cubed Lt ovarian follicle D1 19.8 mm Lt ovarian follicle D2 14.0 mm Lt ovarian follicle D3 15.5 mm Lt ovarian follicle mean 16.4 mm Lt ovarian follicle vol 2.255 cm cubed Lt ovarian follicle D1 12.7 mm Lt ovarian follicle D2 18.8 mm Lt ovarian follicle D3 17.2 mm Lt ovarian follicle mean 16.2 mm Lt ovarian follicle vol 2.157 cm cubed Lt ovarian follicle D1 18.1 mm Lt ovarian follicle D2 14.5 mm Lt ovarian follicle D3 15.6 mm Lt ovarian follicle mean 16.1 mm Lt ovarian follicle vol 2.152 cm cubed Lt ovarian follicle D1 15.8 mm Lt ovarian follicle D2 10.9 mm Lt ovarian follicle D3 21.3 mm Lt ovarian follicle mean 16.0 mm Lt ovarian follicle vol 1.916 cm cubed Lt ovarian follicle D1 19.2 mm Lt ovarian follicle D2 12.9 mm Lt ovarian follicle D3 15.2 mm Lt ovarian follicle mean 15.8 mm Lt ovarian follicle vol 1.973 cm cubed Lt ovarian follicle D1 17.7 mm Lt ovarian follicle D2 14.2 mm Lt ovarian follicle D3 15.5 mm Lt ovarian follicle mean 15.8 mm Lt ovarian follicle vol 2.049 cm cubed Lt ovarian follicle D1 23.6 mm Lt ovarian follicle D2 10.3 mm Lt ovarian follicle D3 7.8 mm Lt ovarian follicle mean 13.9 mm Lt ovarian follicle vol 0.988 cm cubed Lt [facility] D (Vol) 18.4 mm Lt [facility] Dx 22.2 mm Lt [facility] Dy 21.4 mm Lt [facility] Dz 13.9 mm Lt [facility] mean 19.2 mm Lt [facility] vol 3.260 cm cubed Lt [facility] D (Vol) 15.8 mm Lt [facility] Dx 22.1 mm Lt [facility] Dy 17.4 mm Lt [facility] Dz 11.7 mm Lt [facility] mean 17.1 mm Lt [facility] vol 2.050 cm cubed Lt [facility] D (Vol) 15.6 mm Lt [facility] Dx 21.7 mm Lt [facility] Dy 15.9 mm Lt [facility] Dz 11.6 mm Lt [facility] mean 16.4 mm Lt [facility] vol 1.990 cm cubed Lt [facility] D (Vol) 15.1 mm Lt [facility] Dx 28.9 mm Lt [facility] Dy 18.7 mm Lt [facility] Dz 8.1 mm Lt [facility] mean 18.6 mm Lt [facility] vol 1.810 cm cubed Lt [facility] D (Vol) 14.9 mm Lt [facility] Dx 23.6 mm Lt [facility] Dy 14.6 mm Lt [facility] Dz 10.3 mm Lt [facility] mean 16.2 mm Lt [facility] vol 1.750 cm cubed Lt [facility] D (Vol) 14.2 mm Lt [facility] Dx 20.0 mm Lt [facility] Dy 17.2 mm Lt [facility] Dz 9.8 mm Lt [facility] mean 15.6 mm Lt Son[facility] vol 1.490 cm cubed Lt [facility] D (Vol) 14.1 mm Lt [facility] Dx 25.6 mm Lt [facility] Dy 18.8 mm Lt [facility] Dz 7.7 mm Lt [facility] mean 17.4 mm Lt [facility] vol 1.450 cm cubed Lt [facility] D (Vol) 13.9 mm Lt [facility] Dx 19.9 mm Lt [facility] Dy 16.4 mm Lt [facility] Dz 9.8 mm Lt [facility] mean 15.4 mm Lt [facility] vol 1.420 cm cubed Lt [facility] D (Vol) 12.9 mm Lt [facility] Dx 17.5 mm Lt [facility] Dy 13.5 mm Lt [facility] Dz 10.7 mm Lt [facility] mean 13.9 mm Lt [facility] vol 1.130 cm cubed Lt [facility] D (Vol) 12.8 mm Lt [facility] Dx 13.9 mm Lt [facility] Dy 13.3 mm Lt [facility] Dz 12.1 mm Lt [facility] mean 13.1 mm Lt [facility] vol 1.090 cm cubed Lt [facility] D (Vol) 12.4 mm Lt [facility] Dx 12.6 mm Lt [facility] Dy 12.6 mm Lt [facility] Dz 12.1 mm Lt [facility] mean 12.4 mm Lt [facility] vol 1.010 cm cubed Lt [facility] D (Vol) 11.2 mm Lt [facility] Dx 17.1 mm Lt [facility] Dy 12.2 mm Lt [facility] Dz 7.9 mm Lt [facility] mean 12.4 mm Lt [facility] vol 0.730 cm cubed Lt [facility] D (Vol) 9.9 mm Lt [facility] Dx 13.0 mm Lt [facility] Dy 11.5 mm Lt [facility] Dz 8.1 mm Lt [facility] mean 10.9 mm Lt [facility] vol 0.510 cm cubed Lt [facility] D (Vol) 9.3 mm Lt [facility] Dx 14.5 mm Lt [facility] Dy 11.9 mm Lt [facility] Dz 5.5 mm Lt [facility] mean 10.6 mm Lt [facility] vol 0.420 cm cubed Lt [facility] D (Vol) 8.8 mm Lt [facility] Dx 11.3 mm Lt [facility] Dy 9.1 mm Lt [facility] Dz 7.1 mm Lt [facility] mean 9.2 mm Lt [facility] vol 0.360 cm cubed Lt [facility] D (Vol) 8.7 mm Lt [facility] Dx 13.4 mm Lt [facility] Dy 8.3 mm Lt [facility] Dz 7.1 mm Lt [facility] mean 9.6 mm Lt [facility] vol 0.350 cm cubed Lt [facility] D (Vol) 8.7 mm Lt [facility] Dx 10.2 mm Lt [facility] Dy 9.7 mm Lt [facility] Dz 6.9 mm Lt [facility] mean 8.9 mm Lt [facility] vol 0.350 cm cubed Lt [facility] D (Vol) 8.6 mm Lt [facility] Dx 21.5 mm Lt [facility] Dy 7.2 mm Lt [facility] Dz 4.8 mm Lt [facility] mean 11.1 mm Lt [facility] vol 0.330 cm cubed Lt [facility] D (Vol) 8.4 mm Lt [facility] Dx 13.6 mm Lt [facility] Dy 9.1 mm Lt [facility] Dz 5.6 mm Lt [facility] mean 9.4 mm Lt Son[facility] vol 0.310 cm cubed Lt Son[facility] D (Vol) 8.3 mm Lt [facility] Dx 11.9 mm Lt [facility] Dy 9.3 mm Lt [facility] Dz 6.0 mm Lt [facility] mean 9.1 mm Lt Son[facility] vol 0.300 cm cubed Lt Son[facility] D (Vol) 8.3 mm Lt [facility] Dx 14.9 mm Lt [facility] Dy 10.0 mm Lt [facility] Dz 4.3 mm Lt [facility] mean 9.7 mm Lt Son[facility] vol 0.300 cm cubed Lt Son[facility] D (Vol) 6.8 mm Lt [facility] Dx 11.1 mm Lt [facility] Dy 6.6 mm Lt [facility] Dz 4.6 mm Lt [facility] mean 7.4 mm Lt [facility] vol 0.170 cm cubed Lt [facility] D (Vol) 3.8 mm Lt [facility] Dx 4.8 mm Lt [facility] Dy 4.2 mm Lt [facility] Dz 2.8 mm Lt [facility] mean 3.9 mm Lt Son[facility] vol 0.030 cm cubed Lt [facility] D (Vol) 3.0 mm Lt [facility] Dx 5.3 mm Lt [facility] Dy 2.8 mm Lt [facility] Dz 1.9 mm Lt [facility] mean 3.3 mm Lt [facility] vol 0.010 cm cubed [place] ========= Appears normal. Free fluid visualized: mild Impression ========= USE (IVF Follicular) - 70628 1. Uterus appears normal with trilaminar endometrium. 2. Ovarian follicles appear to be in late folliculogenesis. 3. Small amount of fluid in the [place]. Follow-up ======== Labs today, plan per ART team. 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 Anteverted Endometrium: ?? Trilaminar endometrium Endometrial thickness, total ?? 9.4 mm Right Ovary ========= Rt ovary: ??Stimulated w/ multiple follicles consistent w/ hormonal therapy Rt ovarian follicle D1 19.6 mm Rt ovarian follicle D2 18.5 mm Rt ovarian follicle D3 19.2 mm Rt ovarian follicle mean ?? 19.1 mm Rt ovarian follicle vol ?3.655 cm cubed Rt ovarian follicle D1 20.1 mm Rt ovarian follicle D2 18.4 mm Rt ovarian follicle D3 16.7 mm Rt ovarian follicle mean ?? 18.4 mm Rt ovarian follicle vol ?3.232 cm cubed Rt ovarian follicle D1 17.1 mm Rt ovarian follicle D2 14.6 mm Rt ovarian follicle D3 16.4 mm Rt ovarian follicle mean ?? 16.1 mm Rt ovarian follicle vol ?2.154 cm cubed Rt ovarian follicle D1 17.9 mm Rt ovarian follicle D2 9.5 mm Rt ovarian follicle D3 16.9 mm Rt ovarian follicle mean ?? 14.8 mm Rt ovarian follicle vol ?1.507 cm cubed Rt ovarian follicle D1 16.2 mm Rt ovarian follicle D2 11.1 mm Rt ovarian follicle D3 16.0 mm Rt ovarian follicle mean ?? 14.4 mm Rt ovarian follicle vol ?1.503 cm cubed Rt ovarian follicle D1 14.6 mm Rt ovarian follicle D2 14.6 mm Rt ovarian follicle D3 13.6 mm Rt ovarian follicle mean ?? 14.3 mm Rt ovarian follicle vol ?1.525 cm cubed Rt ovarian follicle D1 12.7 mm Rt ovarian follicle D2 16.3 mm Rt ovarian follicle D3 12.8 mm Rt ovarian follicle mean ?? 13.9 mm Rt ovarian follicle vol ?1.386 cm cubed Rt ovarian follicle D1 15.3 mm Rt ovarian follicle D2 10.2 mm Rt ovarian follicle D3 14.5 mm Rt ovarian follicle mean ?? 13.3 mm Rt ovarian follicle vol ?1.184 cm cubed Rt ovarian follicle D1 15.2 mm Rt ovarian follicle D2 13.6 mm Rt ovarian follicle D3 10.8 mm Rt ovarian follicle mean ?? 13.2 mm Rt ovarian follicle vol ?1.172 cm cubed Rt ovarian follicle D1 10.8 mm Rt ovarian follicle D2 12.2 mm Rt ovarian follicle D3 10.4 mm Rt ovarian follicle mean ?? 11.1 mm Rt ovarian follicle vol ?0.716 cm cubed Rt Son[facility] D (Vol) 16.5 mm Rt Sono[facility] Dx ??21.3 mm Rt Son[facility] Dy ??18.4 mm Rt Son[facility] Dz ??13.4 mm Rt Son[facility] mean ?17.7 mm Rt Son[facility] vol 2.350 cm cubed Rt Son[facility] D (Vol) 13.3 mm Rt Son[facility] Dx ??24.9 mm Rt [facility] Dy ??17.1 mm Rt Son[facility] Dz ??7.2 mm Rt Son[facility] mean ?16.4 mm Rt Son[facility] vol 1.240 cm cubed Rt Son[facility] D (Vol) 15.0 mm Rt Son[facility] Dx ??22.5 mm Rt [facility] Dy ??14.5 mm Rt Son[facility] Dz ??11.8 mm Rt Son[facility] mean ?16.3 mm Rt Son[facility] vol 1.760 cm cubed Rt Son[facility] D (Vol) 14.5 mm Rt Son[facility] Dx ??17.5 mm Rt Son[facility] Dy ??16.7 mm Rt Son[facility] Dz ??12.3 mm Rt Son[facility] mean ?15.5 mm Rt Son[facility] vol 1.590 cm cubed Rt Son[facility] D (Vol) 13.4 mm Rt Son[facility] Dx ??20.6 mm Rt [facility] Dy ??16.6 mm Rt Son[facility] Dz ??8.4 mm Rt Son[facility] mean ?15.2 mm Rt Son[facility] vol 1.260 cm cubed Rt Son[facility] D (Vol) 14.0 mm Rt Son[facility] Dx ??19.3 mm Rt Son[facility] Dy ??15.3 mm Rt Son[facility] Dz ??10.2 mm Rt Son[facility] mean ?15.0 mm Rt Son[facility] vol 1.450 cm cubed Rt Son[facility] D (Vol) 14.5 mm Rt Son[facility] Dx ??18.0 mm Rt Son[facility] Dy ??13.8 mm Rt Son[facility] Dz ??12.8 mm Rt Son[facility] mean ?14.9 mm Rt Son[facility] vol 1.590 cm cubed Rt Son[facility] D (Vol) 12.8 mm Rt Son[facility] Dx ??18.8 mm Rt Son[facility] Dy ??12.5 mm Rt Son[facility] Dz ??9.7 mm Rt Son[facility] mean ?13.7 mm Rt Son[facility] vol 1.090 cm cubed Rt Son[facility] D (Vol) 12.8 mm Rt Son[facility] Dx ??17.3 mm Rt Son[facility] Dy ??11.7 mm Rt Son[facility] Dz ??10.8 mm Rt Son[facility] mean ?13.3 mm Rt Son[facility] vol 1.090 cm cubed Rt Son[facility] D (Vol) 12.0 mm Rt Son[facility] Dx ??16.1 mm Rt Son[facility] Dy ??15.0 mm Rt Son[facility] Dz ??8.4 mm Rt Sono[facility] mean ?13.2 mm Rt Son[facility] vol 0.910 cm cubed Rt Sono[facility] D (Vol) 10.5 mm Rt Son[facility] Dx ??14.4 mm Rt Son[facility] Dy ??9.7 mm Rt Son[facility] Dz ??8.7 mm Rt Son[facility] mean ?10.9 mm Rt Son[facility] vol 0.610 cm cubed Rt Son[facility] D (Vol) 9.8 mm Rt Son[facility] Dx ??15.0 mm Rt Son[facility] Dy ??11.6 mm Rt Son[facility] Dz ??6.1 mm Rt Son[facility] mean ?10.9 mm Rt Son[facility] vol 0.500 cm cubed Rt Sono[facility] D (Vol) 9.6 mm Rt Son[facility] Dx ??16.0 mm Rt Son[facility] Dy ??9.7 mm Rt Son[facility] Dz ??7.0 mm Rt Son[facility] mean ?10.9 mm Rt Sono[facility] vol 0.470 cm cubed Rt Sono[facility] D (Vol) 10.3 mm Rt Son[facility] Dx ??11.7 mm Rt Sono[facility] Dy ??11.0 mm Rt Sono[facility] Dz ??9.4 mm Rt Sono[facility] mean ?10.7 mm Rt Sono[facility] vol 0.570 cm cubed Rt Sono[facility] D (Vol) 10.1 mm Rt Son[facility] Dx ??11.7 mm Rt Sono[facility] Dy ??11.2 mm Rt SonoAV[facility] Dz ??9.3 mm Rt SonoAV[facility] mean ?10.7 mm Rt Sono[facility] vol 0.540 cm cubed Rt SonoAV[facility] D (Vol) 9.2 mm Rt Sono[facility] Dx ??11.4 mm Rt Son[facility] Dy ??10.4 mm Rt Son[facility] Dz ??7.6 mm Rt Sono[facility] mean ?9.8 mm Rt Son[facility] vol 0.410 cm cubed Rt Son[facility] D (Vol) 8.5 mm Rt Son[facility] Dx ??14.9 mm Rt Son[facility] Dy ??7.7 mm Rt Sono[facility] Dz ??6.4 mm Rt Sono[facility] mean ?9.7 mm Rt Sono[facility] vol 0.320 cm cubed Rt Sono[facility] D (Vol) 9.0 mm Rt Son[facility] Dx ??12.6 mm Rt Son[facility] Dy ??9.1 mm Rt Son[facility] Dz ??7.1 mm Rt Son[facility] mean ?9.6 mm Rt Son[facility] vol 0.380 cm cubed Rt Son[facility] D (Vol) 8.4 mm Rt Son[facility] Dx ??13.6 mm Rt Son[facility] Dy ??8.5 mm Rt Son[facility] Dz ??5.5 mm Rt Son[facility] mean ?9.2 mm Rt Son[facility] vol 0.310 cm cubed Rt Son[facility] D (Vol) 8.5 mm Rt Son[facility] Dx ??11.1 mm Rt Son[facility] Dy ??8.4 mm Rt Sono[facility] Dz ??7.0 mm Rt SonoAV[facility] mean ?8.9 mm Rt SonoAV[facility] vol 0.320 cm cubed Rt Sono[facility] D (Vol) 7.2 mm Rt Son[facility] Dx ??10.0 mm Rt Son[facility] Dy ??7.1 mm Rt Son[facility] Dz ??5.9 mm Rt Son[facility] mean ?7.7 mm Rt Son[facility] vol 0.200 cm cubed Rt Son[facility] D (Vol) 6.9 mm Rt Son[facility] Dx ??8.7 mm Rt Son[facility] Dy ??8.0 mm Rt Son[facility] Dz ??5.0 mm Rt Son[facility] mean ?7.3 mm Rt Son[facility] vol 0.170 cm cubed Rt Son[facility] D (Vol) 7.2 mm Rt Son[facility] Dx ??8.2 mm Rt Son[facility] Dy ??6.7 mm Rt Son[facility] Dz ??6.7 mm Rt Sono[facility] mean ?7.2 mm Rt Son[facility] vol 0.190 cm cubed Rt SonoAV[facility] D (Vol) 6.3 mm Rt Son[facility] Dx ??8.3 mm Rt Sono[facility] Dy ??7.1 mm Rt Son[facility] Dz ??4.5 mm Rt Sono[facility] mean ?6.6 mm Rt Sono[facility] vol 0.130 cm cubed Rt Son[facility] D (Vol) 4.8 mm Rt Son[facility] Dx ??5.6 mm Rt Son[facility] Dy ??5.2 mm Rt Son[facility] Dz ??4.0 mm Rt SonoAV[facility] mean ?4.9 mm Rt Sono[facility] vol 0.060 cm cubed Rt Son[facility] D (Vol) 4.7 mm Rt Son[facility] Dx ??5.9 mm Rt Son[facility] Dy ??5.3 mm Rt Son[facility] Dz ??3.5 mm Rt Sono[facility] mean ?4.9 mm Rt Son[facility] vol 0.050 cm cubed Rt Son[facility] D (Vol) 4.7 mm Rt Son[facility] Dx ??6.3 mm Rt Son[facility] Dy ??4.9 mm Rt Son[facility] Dz ??3.5 mm Rt Sono[facility] mean ?4.9 mm Rt Son[facility] vol 0.050 cm cubed Rt Son[facility] D (Vol) 3.5 mm Rt Son[facility] Dx ??5.0 mm Rt Son[facility] Dy ??3.7 mm Rt Son[facility] Dz ??2.5 mm Rt Son[facility] mean ?3.7 mm Rt Son[facility] vol 0.020 cm cubed Left Ovary ======== Lt ovarian follicle D1 19.0 mm Lt ovarian follicle D2 15.3 mm Lt ovarian follicle D3 14.6 mm Lt ovarian follicle mean ?? 16.3 mm Lt ovarian follicle vol ?2.221 cm cubed Lt ovarian follicle D1 19.8 mm Lt ovarian follicle D2 13.0 mm Lt ovarian follicle D3 13.4 mm Lt ovarian follicle mean ?? 15.4 mm Lt ovarian follicle vol ?1.806 cm cubed Lt ovarian follicle D1 18.2 mm Lt ovarian follicle D2 10.6 mm Lt ovarian follicle D3 15.9 mm Lt ovarian follicle mean ?? 14.9 mm Lt ovarian follicle vol ?1.603 cm cubed Lt ovarian follicle D1 12.8 mm Lt ovarian follicle D2 12.9 mm Lt ovarian follicle D3 14.0 mm Lt ovarian follicle mean ?? 13.2 mm Lt ovarian follicle vol ?1.214 cm cubed Lt ovarian follicle D1 15.3 mm Lt ovarian follicle D2 11.1 mm Lt ovarian follicle D3 10.3 mm Lt ovarian follicle mean ?? 12.2 mm Lt ovarian follicle vol ?0.911 cm cubed Lt ovarian follicle D1 13.0 mm Lt ovarian follicle D2 10.5 mm Lt ovarian follicle D3 10.8 mm Lt ovarian follicle mean ?? 11.4 mm Lt ovarian follicle vol ?0.768 cm cubed Lt ovarian follicle D1 19.1 mm Lt ovarian follicle D2 6.4 mm Lt ovarian follicle D3 6.0 mm Lt ovarian follicle mean ?? 10.5 mm Lt ovarian follicle vol ?0.381 cm cubed Lt [facility] D (Vol) 16.4 mm Lt Son[facility] Dx ??20.2 mm Lt [facility] Dy ??18.9 mm Lt Son[facility] Dz ??14.2 mm Lt Son[facility] mean ?17.8 mm Lt Son[facility] vol 2.300 cm cubed Lt Son[facility] D (Vol) 16.3 mm Lt Son[facility] Dx ??20.0 mm Lt [facility] Dy ??18.3 mm Lt Son[facility] Dz ??12.7 mm Lt SonoAV[facility] mean ?17.0 mm Lt Son[facility] vol 2.280 cm cubed Lt Son[facility] D (Vol) 13.5 mm Lt Son[facility] Dx ??26.4 mm Lt Son[facility] Dy ??16.3 mm Lt Son[facility] Dz ??7.3 mm Lt Son[facility] mean ?16.7 mm Lt Son[facility] vol 1.290 cm cubed Lt Son[facility] D (Vol) 12.8 mm Lt Son[facility] Dx ??20.6 mm Lt Son[facility] Dy ??14.1 mm Lt Son[facility] Dz ??8.7 mm Lt Son[facility] mean ?14.5 mm Lt Son[facility] vol 1.100 cm cubed Lt Son[facility] D (Vol) 12.3 mm Lt Son[facility] Dx ??19.5 mm Lt [facility] Dy ??12.1 mm Lt Son[facility] Dz ??9.7 mm Lt Son[facility] mean ?13.8 mm Lt Son[facility] vol 0.970 cm cubed Lt Son[facility] D (Vol) 12.8 mm Lt Son[facility] Dx ??15.8 mm Lt [facility] Dy ??13.5 mm Lt Son[facility] Dz ??11.6 mm Lt Son[facility] mean ?13.6 mm Lt Son[facility] vol 1.090 cm cubed Lt Son[facility] D (Vol) 12.6 mm Lt Son[facility] Dx ??16.5 mm Lt [facility] Dy ??14.5 mm Lt Son[facility] Dz ??9.7 mm Lt Son[facility]AV[facility] mean ?13.6 mm Lt Son[facility] vol 1.060 cm cubed Lt Son[facility] D (Vol) 12.3 mm Lt Son[facility] Dx ??17.5 mm Lt Son[facility] Dy ??13.2 mm Lt Son[facility] Dz ??9.3 mm Lt Sono[facility] mean ?13.4 mm Lt Son[facility] vol 0.980 cm cubed Lt Son[facility] D (Vol) 12.8 mm Lt Son[facility] Dx ??15.1 mm Lt Son[facility] Dy ??13.9 mm Lt Son[facility] Dz ??10.6 mm Lt Son[facility] mean ?13.2 mm Lt Sono[facility] vol 1.090 cm cubed Lt Son[facility]AV[facility] D (Vol) 12.2 mm Lt Son[facility] Dx ??16.8 mm Lt Son[facility] Dy ??11.8 mm Lt Son[facility] Dz ??10.3 mm Lt Son[facility] mean ?13.0 mm Lt Son[facility] vol 0.950 cm cubed Lt Son[facility] D (Vol) 12.1 mm Lt Son[facility] Dx ??16.4 mm Lt [facility] Dy ??10.5 mm Lt Son[facility] Dz ??10.4 mm Lt SonoAV[facility] mean ?12.5 mm Lt Son[facility] vol 0.930 cm cubed Lt Son[facility] D (Vol) 11.5 mm Lt Son[facility] Dx ??16.4 mm Lt [facility] Dy ??11.9 mm Lt Son[facility] Dz ??9.0 mm Lt SonoAV[facility] mean ?12.4 mm Lt SonoAV[facility] vol 0.790 cm cubed Lt Son[facility] D (Vol) 11.9 mm Lt Son[facility] Dx ??14.7 mm Lt Son[facility] Dy ??11.2 mm Lt Sono[facility] Dz ??10.7 mm Lt SonoAVC mean ?12.2 mm Lt SonoAV[facility] vol 0.880 cm cubed Lt Son[facility] D (Vol) 10.6 mm Lt Son[facility] Dx ??15.1 mm Lt [facility] Dy ??12.8 mm Lt SonoAV[facility] Dz ??7.8 mm Lt SonoAV[facility] mean ?11.9 mm Lt SonoAV[facility] vol 0.620 cm cubed Lt Son[facility] D (Vol) 11.4 mm Lt Son[facility] Dx ??14.4 mm Lt Son[facility] Dy ??11.0 mm Lt Son[facility] Dz ??10.1 mm Lt SonoAV[facility] mean ?11.8 mm Lt Son[facility] vol 0.770 cm cubed Lt Son[facility] D (Vol) 8.9 mm Lt Son[facility] Dx ??18.2 mm Lt [facility] Dy ??9.0 mm Lt Son[facility] Dz ??5.1 mm Lt Sono[facility] mean ?10.8 mm Lt SonoAV[facility] vol 0.370 cm cubed Lt Son[facility] D (Vol) 10.1 mm Lt Son[facility] Dx ??14.2 mm Lt Son[facility] Dy ??10.1 mm Lt Son[facility] Dz ??7.9 mm Lt SonoAV[facility] mean ?10.7 mm Lt SonoAV[facility] vol 0.530 cm cubed Lt Son[facility] D (Vol) 10.2 mm Lt Son[facility] Dx ??12.0 mm Lt [facility] Dy ??9.4 mm Lt Son[facility] Dz ??9.4 mm Lt SonoAV[facility] mean ?10.3 mm Lt SonoAV[facility] vol 0.550 cm cubed Lt Son[facility] D (Vol) 7.8 mm Lt Son[facility] Dx ??14.7 mm Lt Son[facility] Dy ??9.4 mm Lt Son[facility] Dz ??4.4 mm Lt SonoAV[facility] mean ?9.5 mm Lt SonoAV[facility] vol 0.250 cm cubed Lt Son[facility] D (Vol) 9.0 mm Lt Son[facility] Dx ??11.4 mm Lt Son[facility] Dy ??8.0 mm Lt SonoAVC Dz ??8.0 mm Lt SonoAVC mean ?9.1 mm Lt SonoAV[facility] vol 0.380 cm cubed Lt Son[facility] D (Vol) 8.3 mm Lt Son[facility] Dx ??9.6 mm Lt Son[facility] Dy ??7.8 mm Lt Son[facility]AV[facility] Dz ??7.8 mm Lt SonoAV[facility] mean ?8.4 mm Lt SonoAV[facility] vol 0.300 cm cubed Lt Son[facility]AV[facility] D (Vol) 7.9 mm Lt Son[facility] Dx ??10.5 mm Lt Son[facility] Dy ??6.9 mm Lt SonoAVC Dz ??6.8 mm Lt SonoAVC mean ?8.1 mm Lt SonoAV[facility] vol 0.260 cm cubed Lt Son[facility] D (Vol) 7.8 mm Lt Son[facility] Dx ??9.7 mm Lt Son[facility] Dy ??8.0 mm Lt SonoAVC Dz ??6.6 mm Lt SonoAVC mean ?8.1 mm Lt SonoAVC vol 0.250 cm cubed Lt SonoAVC D (Vol) 7.8 mm Lt SonoAVC Dx ??8.8 mm Lt Son[facility]AV[facility] Dy ??8.8 mm Lt SonoAVC Dz ??6.2 mm Lt SonoAVC mean ?8.0 mm Lt SonoAVC vol 0.250 cm cubed Lt SonoAVC D (Vol) 7.1 mm Lt SonoAVC Dx ??7.3 mm Lt SonoAV[facility] Dy ??7.0 mm Lt SonoAVC Dz ??7.0 mm Lt SonoAVC mean ?7.1 mm Lt SonoAVC vol 0.190 cm cubed Lt SonoAVC D (Vol) 6.6 mm Lt SonoAV[facility] Dx ??9.0 mm Lt SonoAV[facility] Dy ??6.7 mm Lt SonoAVC Dz ??5.3 mm Lt SonoAVC mean ?7.0 mm Lt SonoAVC vol 0.150 cm cubed Lt SonoAVC D (Vol) 6.6 mm Lt SonoAVC Dx ??8.1 mm Lt SonoAV[facility] Dy ??6.8 mm Lt SonoAVC Dz ??5.4 mm Lt SonoAVC mean ?6.7 mm Lt SonoAVC vol 0.150 cm cubed Lt SonoAVC D (Vol) 6.2 mm Lt SonoAVC Dx ??10.4 mm Lt SonoAVC Dy ??4.8 mm Lt SonoAVC Dz ??4.8 mm Lt SonoAVC mean ?6.7 mm Lt SonoAVC vol 0.130 cm cubed Lt SonoAVC D (Vol) 6.0 mm Lt SonoAVC Dx ??10.8 mm Lt SonoAV[facility] Dy ??4.5 mm Lt SonoAVC Dz ??4.5 mm Lt SonoAVC mean ?6.6 mm Lt SonoAVC vol 0.110 cm cubed Lt SonoAVC D (Vol) 6.5 mm Lt SonoAVC Dx ??6.7 mm Lt SonoAVC Dy ??6.7 mm Lt SonoAVC Dz ??6.1 mm Lt SonoAVC mean ?6.5 mm Lt SonoAVC vol 0.140 cm cubed Lt SonoAVC D (Vol) 4.1 mm Lt SonoAVC Dx ??6.9 mm Lt SonoAVC Dy ??4.2 mm Lt SonoAVC Dz ??2.9 mm Lt SonoAVC mean ?4.6 mm Lt SonoAVC vol 0.040 cm cubed Lt SonoAVC D (Vol) 3.4 mm Lt SonoAVC Dx ??6.8 mm Lt SonoAVC Dy ??2.8 mm Lt SonoAVC Dz ??2.2 mm Lt SonoAVC mean ?3.9 mm Lt SonoAVC vol 0.020 cm cubed Lt SonoAVC D (Vol) 3.0 mm Lt SonoAVC Dx ??5.0 mm Lt SonoAVC Dy ??3.2 mm Lt SonoAVC Dz ??1.9 mm Lt SonoAVC mean ?3.4 mm Lt SonoAVC vol 0.010 cm cubed [place] ========= Normal minimal free fluid Impression ========= USE (IVF Follicular) - 90934 1. Anteverted uterus with trilaminar endometrium 2. Stimulated ovaries bilaterally with folliculogenesis as measured above 3. No significant free fluid Follow-up ======== Labs today, plan per [facility] team Comment ======== Ultrasound findings discussed w/patient. Z31.83 encounter for assisted reproductive fertility procedure cycle DATE OF SERVICE: 12/09/2023 Procedure Note Sheila Robb MD - 12/09/2023 Indication ======== Antag on GN Male factor (s/p vasectomy with TESE sample) Uterus ====== Uterus: Visualized Uterus position: Anteverted Endometrium: Trilaminar endometrium Endometrial thickness, total 9.4 mm Right Ovary ========= Rt ovary: Stimulated w/ multiple follicles consistent w/ hormonaltherapy Rt ovarian follicle D1 19.6 mm Rt ovarian follicle D2 18.5 mm Rt ovarian follicle D3 19.2 mm Rt ovarian follicle mean 19.1 mm Rt ovarian follicle vol 3.655 cm cubed Rt ovarian follicle D1 20.1 mm Rt ovarian follicle D2 18.4 mm Rt ovarian follicle D3 16.7 mm Rt ovarian follicle mean 18.4 mm Rt ovarian follicle vol 3.232 cm cubed Rt ovarian follicle D1 17.1 mm Rt ovarian follicle D2 14.6 mm Rt ovarian follicle D3 16.4 mm Rt ovarian follicle mean 16.1 mm Rt ovarian follicle vol 2.154 cm cubed Rt ovarian follicle D1 17.9 mm Rt ovarian follicle D2 9.5 mm Rt ovarian follicle D3 16.9 mm Rt ovarian follicle mean 14.8 mm Rt ovarian follicle vol 1.507 cm cubed Rt ovarian follicle D1 16.2 mm Rt ovarian follicle D2 11.1 mm Rt ovarian follicle D3 16.0 mm Rt ovarian follicle mean 14.4 mm Rt ovarian follicle vol 1.503 cm cubed Rt ovarian follicle D1 14.6 mm Rt ovarian follicle D2 14.6 mm Rt ovarian follicle D3 13.6 mm Rt ovarian follicle mean 14.3 mm Rt ovarian follicle vol 1.525 cm cubed Rt ovarian follicle D1 12.7 mm Rt ovarian follicle D2 16.3 mm Rt ovarian follicle D3 12.8 mm Rt ovarian follicle mean 13.9 mm Rt ovarian follicle vol 1.386 cm cubed Rt ovarian follicle D1 15.3 mm Rt ovarian follicle D2 10.2 mm Rt ovarian follicle D3 14.5 mm Rt ovarian follicle mean 13.3 mm Rt ovarian follicle vol 1.184 cm cubed Rt ovarian follicle D1 15.2 mm Rt ovarian follicle D2 13.6 mm Rt ovarian follicle D3 10.8 mm Rt ovarian follicle mean 13.2 mm Rt ovarian follicle vol 1.172 cm cubed Rt ovarian follicle D1 10.8 mm Rt ovarian follicle D2 12.2 mm Rt ovarian follicle D3 10.4 mm Rt ovarian follicle mean 11.1 mm Rt ovarian follicle vol 0.716 cm cubed Rt SonoAVC D (Vol) 16.5 mm Rt SonoAVC Dx 21.3 mm Rt SonoAVC Dy 18.4 mm Rt SonoAVC Dz 13.4 mm Rt SonoAVC mean 17.7 mm Rt SonoAVC vol 2.350 cm cubed Rt SonoAVC D (Vol) 13.3 mm Rt SonoAVC Dx 24.9 mm Rt SonoAVC Dy 17.1 mm Rt SonoAVC Dz 7.2 mm Rt SonoAVC mean 16.4 mm Rt SonoAVC vol 1.240 cm cubed Rt SonoAVC D (Vol) 15.0 mm Rt SonoAVC Dx 22.5 mm Rt SonoAVC Dy 14.5 mm Rt SonoAVC Dz 11.8 mm Rt Son[facility] mean 16.3 mm Rt [facility] vol 1.760 cm cubed Rt [facility] D (Vol) 14.5 mm Rt [facility] Dx 17.5 mm Rt [facility] Dy 16.7 mm Rt [facility] Dz 12.3 mm Rt [facility] mean 15.5 mm Rt [facility] vol 1.590 cm cubed Rt [facility] D (Vol) 13.4 mm Rt [facility] Dx 20.6 mm Rt [facility] Dy 16.6 mm Rt [facility] Dz 8.4 mm Rt [facility] mean 15.2 mm Rt [facility] vol 1.260 cm cubed Rt [facility] D (Vol) 14.0 mm Rt [facility] Dx 19.3 mm Rt [facility] Dy 15.3 mm Rt [facility] Dz 10.2 mm Rt [facility] mean 15.0 mm Rt [facility] vol 1.450 cm cubed Rt [facility] D (Vol) 14.5 mm Rt [facility] Dx 18.0 mm Rt [facility] Dy 13.8 mm Rt [facility] Dz 12.8 mm Rt [facility] mean 14.9 mm Rt [facility] vol 1.590 cm cubed Rt [facility] D (Vol) 12.8 mm Rt [facility] Dx 18.8 mm Rt [facility] Dy 12.5 mm Rt [facility] Dz 9.7 mm Rt [facility] mean 13.7 mm Rt [facility] vol 1.090 cm cubed Rt [facility] D (Vol) 12.8 mm Rt [facility] Dx 17.3 mm Rt [facility] Dy 11.7 mm Rt [facility] Dz 10.8 mm Rt [facility] mean 13.3 mm Rt [facility] vol 1.090 cm cubed Rt [facility] D (Vol) 12.0 mm Rt [facility] Dx 16.1 mm Rt [facility] Dy 15.0 mm Rt [facility] Dz 8.4 mm Rt [facility] mean 13.2 mm Rt [facility] vol 0.910 cm cubed Rt [facility] D (Vol) 10.5 mm Rt [facility] Dx 14.4 mm Rt [facility] Dy 9.7 mm Rt [facility] Dz 8.7 mm Rt [facility] mean 10.9 mm Rt [facility] vol 0.610 cm cubed Rt [facility] D (Vol) 9.8 mm Rt [facility] Dx 15.0 mm Rt [facility] Dy 11.6 mm Rt [facility] Dz 6.1 mm Rt [facility] mean 10.9 mm Rt [facility] vol 0.500 cm cubed Rt [facility] D (Vol) 9.6 mm Rt [facility] Dx 16.0 mm Rt [facility] Dy 9.7 mm Rt [facility] Dz 7.0 mm Rt [facility] mean 10.9 mm Rt [facility] vol 0.470 cm cubed Rt [facility] D (Vol) 10.3 mm Rt [facility] Dx 11.7 mm Rt [facility] Dy 11.0 mm Rt [facility] Dz 9.4 mm Rt [facility] mean 10.7 mm Rt [facility] vol 0.570 cm cubed Rt [facility] D (Vol) 10.1 mm Rt [facility] Dx 11.7 mm Rt [facility] Dy 11.2 mm Rt [facility] Dz 9.3 mm Rt [facility] mean 10.7 mm Rt [facility] vol 0.540 cm cubed Rt [facility] D (Vol) 9.2 mm Rt [facility] Dx 11.4 mm Rt [facility] Dy 10.4 mm Rt [facility] Dz 7.6 mm Rt [facility] mean 9.8 mm Rt [facility] vol 0.410 cm cubed Rt [facility] D (Vol) 8.5 mm Rt [facility] Dx 14.9 mm Rt [facility] Dy 7.7 mm Rt [facility] Dz 6.4 mm Rt [facility] mean 9.7 mm Rt [facility] vol 0.320 cm cubed Rt [facility] D (Vol) 9.0 mm Rt [facility] Dx 12.6 mm Rt [facility] Dy 9.1 mm Rt [facility] Dz 7.1 mm Rt [facility] mean 9.6 mm Rt [facility] vol 0.380 cm cubed Rt [facility] D (Vol) 8.4 mm Rt [facility] Dx 13.6 mm Rt [facility] Dy 8.5 mm Rt [facility] Dz 5.5 mm Rt [facility] mean 9.2 mm Rt [facility] vol 0.310 cm cubed Rt [facility] D (Vol) 8.5 mm Rt [facility] Dx 11.1 mm Rt [facility] Dy 8.4 mm Rt [facility] Dz 7.0 mm Rt [facility] mean 8.9 mm Rt [facility] vol 0.320 cm cubed Rt [facility] D (Vol) 7.2 mm Rt [facility] Dx 10.0 mm Rt [facility] Dy 7.1 mm Rt [facility] Dz 5.9 mm Rt [facility] mean 7.7 mm Rt [facility] vol 0.200 cm cubed Rt [facility] D (Vol) 6.9 mm Rt [facility] Dx 8.7 mm Rt [facility] Dy 8.0 mm Rt [facility] Dz 5.0 mm Rt [facility] mean 7.3 mm Rt [facility] vol 0.170 cm cubed Rt [facility] D (Vol) 7.2 mm Rt [facility] Dx 8.2 mm Rt [facility] Dy 6.7 mm Rt [facility] Dz 6.7 mm Rt [facility] mean 7.2 mm Rt [facility] vol 0.190 cm cubed Rt [facility] D (Vol) 6.3 mm Rt [facility] Dx 8.3 mm Rt [facility] Dy 7.1 mm Rt [facility] Dz 4.5 mm Rt [facility] mean 6.6 mm Rt [facility] vol 0.130 cm cubed Rt [facility] D (Vol) 4.8 mm Rt [facility] Dx 5.6 mm Rt [facility] Dy 5.2 mm Rt [facility] Dz 4.0 mm Rt [facility] mean 4.9 mm Rt [facility] vol 0.060 cm cubed Rt [facility] D (Vol) 4.7 mm Rt [facility] Dx 5.9 mm Rt [facility] Dy 5.3 mm Rt [facility] Dz 3.5 mm Rt [facility] mean 4.9 mm Rt [facility] vol 0.050 cm cubed Rt [facility] D (Vol) 4.7 mm Rt [facility] Dx 6.3 mm Rt [facility] Dy 4.9 mm Rt [facility] Dz 3.5 mm Rt [facility] mean 4.9 mm Rt [facility] vol 0.050 cm cubed Rt [facility] D (Vol) 3.5 mm Rt [facility] Dx 5.0 mm Rt [facility] Dy 3.7 mm Rt [facility] Dz 2.5 mm Rt [facility] mean 3.7 mm Rt [facility] vol 0.020 cm cubed Left Ovary ======== Lt ovarian follicle D1 19.0 mm Lt ovarian follicle D2 15.3 mm Lt ovarian follicle D3 14.6 mm Lt ovarian follicle mean 16.3 mm Lt ovarian follicle vol 2.221 cm cubed Lt ovarian follicle D1 19.8 mm Lt ovarian follicle D2 13.0 mm Lt ovarian follicle D3 13.4 mm Lt ovarian follicle mean 15.4 mm Lt ovarian follicle vol 1.806 cm cubed Lt ovarian follicle D1 18.2 mm Lt ovarian follicle D2 10.6 mm Lt ovarian follicle D3 15.9 mm Lt ovarian follicle mean 14.9 mm Lt ovarian follicle vol 1.603 cm cubed Lt ovarian follicle D1 12.8 mm Lt ovarian follicle D2 12.9 mm Lt ovarian follicle D3 14.0 mm Lt ovarian follicle mean 13.2 mm Lt ovarian follicle vol 1.214 cm cubed Lt ovarian follicle D1 15.3 mm Lt ovarian follicle D2 11.1 mm Lt ovarian follicle D3 10.3 mm Lt ovarian follicle mean 12.2 mm Lt ovarian follicle vol 0.911 cm cubed Lt ovarian follicle D1 13.0 mm Lt ovarian follicle D2 10.5 mm Lt ovarian follicle D3 10.8 mm Lt ovarian follicle mean 11.4 mm Lt ovarian follicle vol 0.768 cm cubed Lt ovarian follicle D1 19.1 mm Lt ovarian follicle D2 6.4 mm Lt ovarian follicle D3 6.0 mm Lt ovarian follicle mean 10.5 mm Lt ovarian follicle vol 0.381 cm cubed Lt [facility] D (Vol) 16.4 mm Lt [facility] Dx 20.2 mm Lt [facility] Dy 18.9 mm Lt [facility] Dz 14.2 mm Lt [facility] mean 17.8 mm Lt [facility] vol 2.300 cm cubed Lt [facility] D (Vol) 16.3 mm Lt [facility] Dx 20.0 mm Lt [facility] Dy 18.3 mm Lt [facility] Dz 12.7 mm Lt [facility] mean 17.0 mm Lt [facility] vol 2.280 cm cubed Lt [facility] D (Vol) 13.5 mm Lt [facility] Dx 26.4 mm Lt [facility] Dy 16.3 mm Lt [facility] Dz 7.3 mm Lt [facility] mean 16.7 mm Lt [facility] vol 1.290 cm cubed Lt [facility] D (Vol) 12.8 mm Lt [facility] Dx 20.6 mm Lt [facility] Dy 14.1 mm Lt [facility] Dz 8.7 mm Lt [facility] mean 14.5 mm Lt [facility] vol 1.100 cm cubed Lt [facility] D (Vol) 12.3 mm Lt [facility] Dx 19.5 mm Lt [facility] Dy 12.1 mm Lt [facility] Dz 9.7 mm Lt [facility] mean 13.8 mm Lt [facility] vol 0.970 cm cubed Lt [facility] D (Vol) 12.8 mm Lt [facility] Dx 15.8 mm Lt [facility] Dy 13.5 mm Lt [facility] Dz 11.6 mm Lt [facility] mean 13.6 mm Lt [facility] vol 1.090 cm cubed Lt [facility] D (Vol) 12.6 mm Lt [facility] Dx 16.5 mm Lt [facility] Dy 14.5 mm Lt [facility] Dz 9.7 mm Lt [facility] mean 13.6 mm Lt [facility] vol 1.060 cm cubed Lt [facility] D (Vol) 12.3 mm Lt [facility] Dx 17.5 mm Lt [facility] Dy 13.2 mm Lt [facility] Dz 9.3 mm Lt [facility] mean 13.4 mm Lt [facility] vol 0.980 cm cubed Lt [facility] D (Vol) 12.8 mm Lt [facility] Dx 15.1 mm Lt [facility] Dy 13.9 mm Lt [facility] Dz 10.6 mm Lt [facility] mean 13.2 mm Lt [facility] vol 1.090 cm cubed Lt [facility] D (Vol) 12.2 mm Lt [facility] Dx 16.8 mm Lt [facility] Dy 11.8 mm Lt [facility] Dz 10.3 mm Lt [facility] mean 13.0 mm Lt [facility] vol 0.950 cm cubed Lt [facility] D (Vol) 12.1 mm Lt [facility] Dx 16.4 mm Lt [facility] Dy 10.5 mm Lt [facility] Dz 10.4 mm Lt [facility] mean 12.5 mm Lt [facility] vol 0.930 cm cubed Lt [facility] D (Vol) 11.5 mm Lt [facility] Dx 16.4 mm Lt [facility] Dy 11.9 mm Lt [facility] Dz 9.0 mm Lt [facility] mean 12.4 mm Lt [facility] vol 0.790 cm cubed Lt [facility] D (Vol) 11.9 mm Lt [facility] Dx 14.7 mm Lt [facility] Dy 11.2 mm Lt [facility] Dz 10.7 mm Lt [facility] mean 12.2 mm Lt [facility] vol 0.880 cm cubed Lt [facility] D (Vol) 10.6 mm Lt [facility] Dx 15.1 mm Lt [facility] Dy 12.8 mm Lt [facility] Dz 7.8 mm Lt [facility] mean 11.9 mm Lt [facility] vol 0.620 cm cubed Lt [facility] D (Vol) 11.4 mm Lt [facility] Dx 14.4 mm Lt [facility] Dy 11.0 mm Lt [facility] Dz 10.1 mm Lt [facility] mean 11.8 mm Lt [facility] vol 0.770 cm cubed Lt [facility] D (Vol) 8.9 mm Lt [facility] Dx 18.2 mm Lt [facility] Dy 9.0 mm Lt [facility] Dz 5.1 mm Lt [facility] mean 10.8 mm Lt [facility] vol 0.370 cm cubed Lt [facility] D (Vol) 10.1 mm Lt [facility] Dx 14.2 mm Lt [facility] Dy 10.1 mm Lt [facility] Dz 7.9 mm Lt [facility] mean 10.7 mm Lt [facility] vol 0.530 cm cubed Lt [facility] D (Vol) 10.2 mm Lt [facility] Dx 12.0 mm Lt [facility] Dy 9.4 mm Lt [facility] Dz 9.4 mm Lt [facility] mean 10.3 mm Lt [facility] vol 0.550 cm cubed Lt [facility] D (Vol) 7.8 mm Lt [facility] Dx 14.7 mm Lt [facility] Dy 9.4 mm Lt [facility] Dz 4.4 mm Lt [facility] mean 9.5 mm Lt [facility] vol 0.250 cm cubed Lt [facility] D (Vol) 9.0 mm Lt [facility] Dx 11.4 mm Lt [facility] Dy 8.0 mm Lt [facility] Dz 8.0 mm Lt [facility] mean 9.1 mm Lt [facility] vol 0.380 cm cubed Lt [facility] D (Vol) 8.3 mm Lt [facility] Dx 9.6 mm Lt [facility] Dy 7.8 mm Lt [facility] Dz 7.8 mm Lt [facility] mean 8.4 mm Lt [facility] vol 0.300 cm cubed Lt [facility] D (Vol) 7.9 mm Lt [facility] Dx 10.5 mm Lt [facility] Dy 6.9 mm Lt [facility] Dz 6.8 mm Lt [facility] mean 8.1 mm Lt [facility] vol 0.260 cm cubed Lt [facility] D (Vol) 7.8 mm Lt [facility] Dx 9.7 mm Lt [facility] Dy 8.0 mm Lt [facility] Dz 6.6 mm Lt [facility] mean 8.1 mm Lt [facility] vol 0.250 cm cubed Lt [facility] D (Vol) 7.8 mm Lt [facility] Dx 8.8 mm Lt [facility] Dy 8.8 mm Lt [facility] Dz 6.2 mm Lt [facility] mean 8.0 mm Lt [facility] vol 0.250 cm cubed Lt [facility] D (Vol) 7.1 mm Lt [facility] Dx 7.3 mm Lt [facility] Dy 7.0 mm Lt [facility] Dz 7.0 mm Lt [facility] mean 7.1 mm Lt [facility] vol 0.190 cm cubed Lt [facility] D (Vol) 6.6 mm Lt [facility] Dx 9.0 mm Lt [facility] Dy 6.7 mm Lt [facility] Dz 5.3 mm Lt [facility] mean 7.0 mm Lt [facility] vol 0.150 cm cubed Lt [facility] D (Vol) 6.6 mm Lt [facility] Dx 8.1 mm Lt [facility] Dy 6.8 mm Lt [facility] Dz 5.4 mm Lt [facility] mean 6.7 mm Lt [facility] vol 0.150 cm cubed Lt [facility] D (Vol) 6.2 mm Lt [facility] Dx 10.4 mm Lt [facility] Dy 4.8 mm Lt [facility] Dz 4.8 mm Lt [facility] mean 6.7 mm Lt [facility] vol 0.130 cm cubed Lt [facility] D (Vol) 6.0 mm Lt [facility] Dx 10.8 mm Lt [facility] Dy 4.5 mm Lt [facility] Dz 4.5 mm Lt [facility] mean 6.6 mm Lt [facility] vol 0.110 cm cubed Lt [facility] D (Vol) 6.5 mm Lt [facility] Dx 6.7 mm Lt [facility] Dy 6.7 mm Lt [facility] Dz 6.1 mm Lt [facility] mean 6.5 mm Lt [facility] vol 0.140 cm cubed Lt [facility] D (Vol) 4.1 mm Lt [facility] Dx 6.9 mm Lt [facility] Dy 4.2 mm Lt [facility] Dz 2.9 mm Lt [facility] mean 4.6 mm Lt [facility] vol 0.040 cm cubed Lt [facility] D (Vol) 3.4 mm Lt [facility] Dx 6.8 mm Lt [facility] Dy 2.8 mm Lt [facility] Dz 2.2 mm Lt [facility] mean 3.9 mm Lt [facility] vol 0.020 cm cubed Lt [facility] D (Vol) 3.0 mm Lt [facility] Dx 5.0 mm Lt [facility] Dy 3.2 mm Lt [facility] Dz 1.9 mm Lt [facility] mean 3.4 mm Lt [facility] vol 0.010 cm cubed [place] ========= Normal minimal free fluid Impression ========= USE (IVF Follicular) - 02228 1. Anteverted uterus with trilaminar endometrium 2. Stimulated ovaries bilaterally with folliculogenesis as measuredabove 3. No significant free fluid Follow-up ======== Labs today, plan per [facility] team Comment ======== Ultrasound findings discussed w/patient. 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 Anteverted Endometrium: ?? Trilaminar endometrium Endometrial thickness, total ?? 7.8 mm Right Ovary ========= Rt ovary: ??Stimulated w/ multiple follicles consistent w/ hormonal therapy Rt ovarian follicle D1 15.3 mm Rt ovarian follicle D2 20.2 mm Rt ovarian follicle D3 11.6 mm Rt ovarian follicle mean ?? 15.7 mm Rt ovarian follicle vol ?1.877 cm cubed Rt ovarian follicle D1 15.2 mm Rt ovarian follicle D2 12.2 mm Rt ovarian follicle D3 14.1 mm Rt ovarian follicle mean ?? 13.8 mm Rt ovarian follicle vol ?1.371 cm cubed Rt ovarian follicle D1 15.8 mm Rt ovarian follicle D2 15.3 mm Rt ovarian follicle D3 5.8 mm Rt ovarian follicle mean ?? 12.3 mm Rt ovarian follicle vol ?0.737 cm cubed Rt ovarian follicle D1 14.8 mm Rt ovarian follicle D2 8.2 mm Rt ovarian follicle D3 10.2 mm Rt ovarian follicle mean ?? 11.1 mm Rt ovarian follicle vol ?0.651 cm cubed Rt ovarian follicle D1 11.8 mm Rt ovarian follicle D2 9.2 mm Rt ovarian follicle D3 9.1 mm Rt ovarian follicle mean ?? 10.1 mm Rt ovarian follicle vol ?0.521 cm cubed Rt [facility] D (Vol) 13.3 mm Rt [facility] Dx ??22.5 mm Rt [facility] Dy ??13.3 mm Rt [facility] Dz ??9.7 mm Rt [facility] mean ?15.2 mm Rt [facility] vol 1.240 cm cubed Rt [facility] D (Vol) 12.5 mm Rt [facility] Dx ??22.2 mm Rt [facility] Dy ??12.3 mm Rt [facility] Dz ??8.6 mm Rt [facility] mean ?14.4 mm Rt [facility] vol 1.030 cm cubed Rt [facility] D (Vol) 12.7 mm Rt [facility] Dx ??19.0 mm Rt [facility] Dy ??14.1 mm Rt [facility] Dz ??9.5 mm Rt [facility] mean ?14.2 mm Rt [facility] vol 1.070 cm cubed Rt [facility] D (Vol) 12.4 mm Rt [facility] Dx ??19.5 mm Rt [facility] Dy ??15.1 mm Rt [facility] Dz ??8.1 mm Rt [facility] mean ?14.2 mm Rt [facility] vol 0.990 cm cubed Rt [facility] D (Vol) 11.9 mm Rt [facility] Dx ??17.6 mm Rt [facility] Dy ??15.8 mm Rt [facility] Dz ??7.5 mm Rt [facility] mean ?13.6 mm Rt [facility] vol 0.890 cm cubed Rt [facility] D (Vol) 11.0 mm Rt [facility] Dx ??22.0 mm Rt [facility] Dy ??11.1 mm Rt [facility] Dz ??6.5 mm Rt [facility] mean ?13.2 mm Rt [facility] vol 0.690 cm cubed Rt [facility] D (Vol) 12.0 mm Rt [facility] Dx ??17.1 mm Rt [facility] Dy ??11.0 mm Rt [facility] Dz ??10.3 mm Rt [facility] mean ?12.8 mm Rt [facility] vol 0.900 cm cubed Rt [facility] D (Vol) 10.4 mm Rt [facility] Dx ??16.7 mm Rt [facility] Dy ??10.0 mm Rt [facility] Dz ??9.0 mm Rt [facility] mean ?11.9 mm Rt [facility] vol 0.590 cm cubed Rt [facility] D (Vol) 10.9 mm Rt [facility] Dx ??13.2 mm Rt [facility] Dy ??12.2 mm Rt [facility] Dz ??8.6 mm Rt [facility] mean ?11.3 mm Rt [facility] vol 0.680 cm cubed Rt [facility] D (Vol) 10.2 mm Rt [facility] Dx ??15.5 mm Rt [facility] Dy ??9.3 mm Rt [facility] Dz ??8.3 mm Rt [facility] mean ?11.1 mm Rt [facility] vol 0.550 cm cubed Rt [facility] D (Vol) 9.7 mm Rt [facility] Dx ??12.1 mm Rt [facility] Dy ??9.3 mm Rt [facility] Dz ??8.5 mm Rt [facility] mean ?10.0 mm Rt [facility] vol 0.480 cm cubed Rt [facility] D (Vol) 8.7 mm Rt [facility] Dx ??13.0 mm Rt [facility] Dy ??9.3 mm Rt [facility] Dz ??6.4 mm Rt [facility] mean ?9.6 mm Rt [facility] vol 0.340 cm cubed Rt [facility] D (Vol) 8.4 mm Rt [facility] Dx ??13.9 mm Rt [facility] Dy ??8.2 mm Rt [facility] Dz ??6.2 mm Rt [facility] mean ?9.4 mm Rt [facility] vol 0.310 cm cubed Rt [facility] D (Vol) 8.8 mm Rt [facility] Dx ??12.5 mm Rt [facility] Dy ??8.6 mm Rt [facility] Dz ??6.8 mm Rt [facility] mean ?9.3 mm Rt [facility] vol 0.360 cm cubed Rt [facility] D (Vol) 7.6 mm Rt [facility] Dx ??10.3 mm Rt [facility] Dy ??8.1 mm Rt [facility] Dz ??5.7 mm Rt [facility] mean ?8.0 mm Rt [facility] vol 0.230 cm cubed Rt [facility] D (Vol) 7.2 mm Rt [facility] Dx ??8.9 mm Rt [facility] Dy ??7.8 mm Rt [facility] Dz ??5.8 mm Rt [facility] mean ?7.5 mm Rt [facility] vol 0.190 cm cubed Rt [facility] D (Vol) 7.0 mm Rt [facility] Dx ??10.1 mm Rt [facility] Dy ??6.8 mm Rt [facility] Dz ??5.3 mm Rt [facility] mean ?7.4 mm Rt [facility] vol 0.180 cm cubed Rt [facility] D (Vol) 5.6 mm Rt [facility] Dx ??8.7 mm Rt [facility] Dy ??6.4 mm Rt [facility] Dz ??3.8 mm Rt [facility] mean ?6.3 mm Rt [facility] vol 0.090 cm cubed Rt [facility] D (Vol) 5.8 mm Rt [facility] Dx ??7.7 mm Rt [facility] Dy ??5.8 mm Rt [facility] Dz ??5.0 mm Rt [facility] mean ?6.2 mm Rt [facility] vol 0.100 cm cubed Rt [facility] D (Vol) 5.4 mm Rt [facility] Dx ??7.6 mm Rt [facility] Dy ??5.0 mm Rt [facility] Dz ??4.5 mm Rt [facility] mean ?5.7 mm Rt [facility] vol 0.080 cm cubed Rt [facility] D (Vol) 4.4 mm Rt [facility] Dx ??6.5 mm Rt [facility] Dy ??4.4 mm Rt [facility] Dz ??3.1 mm Rt [facility] mean ?4.7 mm Rt [facility] vol 0.040 cm cubed Rt [facility] D (Vol) 4.4 mm Rt [facility] Dx ??6.0 mm Rt [facility] Dy ??4.2 mm Rt [facility] Dz ??3.7 mm Rt [facility] mean ?4.6 mm Rt [facility] vol 0.050 cm cubed Rt [facility] D (Vol) 4.3 mm Rt [facility] Dx ??5.8 mm Rt [facility] Dy ??4.8 mm Rt [facility] Dz ??2.9 mm Rt [facility] mean ?4.5 mm Rt [facility] vol 0.040 cm cubed Rt [facility] D (Vol) 4.2 mm Rt [facility] Dx ??5.8 mm Rt [facility] Dy ??4.8 mm Rt [facility] Dz ??2.8 mm Rt [facility] mean ?4.5 mm Rt [facility] vol 0.040 cm cubed Rt [facility] D (Vol) 3.3 mm Rt [facility] Dx ??4.8 mm Rt [facility] Dy ??4.1 mm Rt [facility] Dz ??1.9 mm Rt [facility] mean ?3.6 mm Rt [facility] vol 0.020 cm cubed Rt [facility] D (Vol) 3.2 mm Rt [facility] Dx ??4.9 mm Rt [facility] Dy ??3.0 mm Rt [facility] Dz ??2.6 mm Rt [facility] mean ?3.5 mm Rt [facility] vol 0.020 cm cubed Rt [facility] D (Vol) 3.1 mm Rt [facility] Dx ??4.6 mm Rt [facility] Dy ??3.1 mm Rt [facility] Dz ??2.6 mm Rt [facility] mean ?3.5 mm Rt [facility] vol 0.020 cm cubed Rt [facility] D (Vol) 2.9 mm Rt [facility] Dx ??3.8 mm Rt [facility] Dy ??3.4 mm Rt [facility] Dz ??2.0 mm Rt [facility] mean ?3.1 mm Rt [facility] vol 0.010 cm cubed Rt [facility] D (Vol) 2.7 mm Rt [facility] Dx ??4.4 mm Rt [facility] Dy ??2.6 mm Rt [facility] Dz ??2.0 mm Rt [facility] mean ?3.0 mm Rt [facility] vol 0.010 cm cubed Rt [facility] D (Vol) 2.6 mm Rt [facility] Dx ??4.4 mm Rt [facility] Dy ??2.9 mm Rt [facility] Dz ??1.6 mm Rt [facility] mean ?3.0 mm Rt [facility] vol 0.010 cm cubed Rt [facility] D (Vol) 2.6 mm Rt [facility] Dx ??4.5 mm Rt [facility] Dy ??3.2 mm Rt [facility] Dz ??1.3 mm Rt [facility] mean ?3.0 mm Rt [facility] vol 0.010 cm cubed Rt [facility] D (Vol) 2.4 mm Rt [facility] Dx ??4.3 mm Rt [facility] Dy ??3.1 mm Rt [facility] Dz ??1.2 mm Rt [facility] mean ?2.9 mm Rt [facility] vol 0.010 cm cubed Rt [facility] D (Vol) 2.2 mm Rt [facility] Dx ??4.8 mm Rt [facility] Dy ??1.9 mm Rt [facility] Dz ??1.4 mm Rt [facility] mean ?2.7 mm Rt [facility] vol 0.010 cm cubed Rt [facility] D (Vol) 2.3 mm Rt [facility] Dx ??3.3 mm Rt [facility] Dy ??2.3 mm Rt [facility] Dz ??1.7 mm Rt [facility] mean ?2.5 mm Rt [facility] vol 0.010 cm cubed Left Ovary ======== Lt ovary: ??Stimulated w/ multiple follicles consistent w/ hormonal therapy Outline: ?? Smooth Lt ovarian follicle D1 12.5 mm Lt ovarian follicle D2 12.9 mm Lt ovarian follicle D3 10.9 mm Lt ovarian follicle mean ?? 12.1 mm Lt ovarian follicle vol ?0.915 cm cubed Lt ovarian follicle D1 14.8 mm Lt ovarian follicle D2 9.4 mm Lt ovarian follicle D3 8.4 mm Lt ovarian follicle mean ?? 10.9 mm Lt ovarian follicle vol ?0.612 cm cubed Lt [facility] D (Vol) 13.1 mm Lt [facility] Dx ??20.9 mm Lt [facility] Dy ??13.0 mm Lt [facility] Dz ??11.4 mm Lt [facility] mean ?15.1 mm Lt [facility] vol 1.180 cm cubed Lt [facility] D (Vol) 13.1 mm Lt [facility] Dx ??17.2 mm Lt [facility] Dy ??13.7 mm Lt [facility] Dz ??10.5 mm Lt [facility] mean ?13.8 mm Lt [facility] vol 1.190 cm cubed Lt [facility] D (Vol) 12.3 mm Lt [facility] Dx ??17.3 mm Lt [facility] Dy ??12.7 mm Lt [facility] Dz ??10.5 mm Lt [facility] mean ?13.5 mm Lt [facility] vol 0.970 cm cubed Lt [facility] D (Vol) 12.3 mm Lt [facility] Dx ??18.6 mm Lt [facility] Dy ??12.3 mm Lt [facility] Dz ??9.4 mm Lt [facility] mean ?13.4 mm Lt [facility] vol 0.980 cm cubed Lt [facility] D (Vol) 11.8 mm Lt [facility] Dx ??17.7 mm Lt [facility] Dy ??13.8 mm Lt [facility] Dz ??8.6 mm Lt [facility] mean ?13.4 mm Lt [facility] vol 0.870 cm cubed Lt [facility] D (Vol) 11.4 mm Lt [facility] Dx ??20.4 mm Lt [facility] Dy ??12.8 mm Lt [facility] Dz ??6.6 mm Lt [facility] mean ?13.3 mm Lt [facility] vol 0.770 cm cubed Lt [facility] D (Vol) 12.5 mm Lt [facility] Dx ??17.8 mm Lt [facility] Dy ??11.8 mm Lt [facility] Dz ??9.7 mm Lt [facility] mean ?13.1 mm Lt [facility] vol 1.020 cm cubed Lt [facility] D (Vol) 10.6 mm Lt [facility] Dx ??19.4 mm Lt [facility] Dy ??13.2 mm Lt [facility] Dz ??6.7 mm Lt [facility] mean ?13.1 mm Lt [facility] vol 0.630 cm cubed Lt [facility] D (Vol) 11.2 mm Lt [facility] Dx ??18.3 mm Lt [facility] Dy ??10.4 mm Lt [facility] Dz ??8.2 mm Lt [facility] mean ?12.3 mm Lt [facility] vol 0.730 cm cubed Lt [facility] D (Vol) 10.9 mm Lt [facility] Dx ??19.5 mm Lt [facility] Dy ??10.8 mm Lt [facility] Dz ??6.7 mm Lt [facility] mean ?12.3 mm Lt [facility] vol 0.680 cm cubed Lt [facility] D (Vol) 11.3 mm Lt [facility] Dx ??17.4 mm Lt [facility] Dy ??11.0 mm Lt [facility] Dz ??8.1 mm Lt [facility] mean ?12.2 mm Lt [facility] vol 0.750 cm cubed Lt [facility] D (Vol) 10.9 mm Lt [facility] Dx ??15.8 mm Lt [facility] Dy ??11.6 mm Lt [facility] Dz ??8.3 mm Lt [facility] mean ?11.9 mm Lt [facility] vol 0.670 cm cubed Lt [facility] D (Vol) 11.1 mm Lt [facility] Dx ??14.0 mm Lt [facility] Dy ??11.6 mm Lt [facility] Dz ??9.6 mm Lt [facility] mean ?11.7 mm Lt [facility] vol 0.720 cm cubed Lt [facility] D (Vol) 10.0 mm Lt [facility] Dx ??13.8 mm Lt [facility] Dy ??11.5 mm Lt [facility] Dz ??7.7 mm Lt [facility] mean ?11.0 mm Lt [facility] vol 0.530 cm cubed Lt [facility] D (Vol) 10.5 mm Lt [facility] Dx ??14.7 mm Lt [facility] Dy ??9.4 mm Lt [facility] Dz ??8.7 mm Lt [facility] mean ?10.9 mm Lt [facility] vol 0.600 cm cubed Lt [facility] D (Vol) 9.9 mm Lt [facility] Dx ??13.9 mm Lt [facility] Dy ??10.7 mm Lt [facility] Dz ??7.6 mm Lt [facility] mean ?10.7 mm Lt [facility] vol 0.500 cm cubed Lt [facility] D (Vol) 10.2 mm Lt [facility] Dx ??11.3 mm Lt [facility] Dy ??9.6 mm Lt [facility] Dz ??9.6 mm Lt [facility] mean ?10.2 mm Lt [facility] vol 0.550 cm cubed Lt [facility] D (Vol) 9.9 mm Lt [facility] Dx ??12.5 mm Lt [facility] Dy ??9.6 mm Lt [facility] Dz ??8.4 mm Lt [facility] mean ?10.2 mm Lt [facility] vol 0.520 cm cubed Lt [facility] D (Vol) 9.5 mm Lt [facility] Dx ??10.8 mm Lt [facility] Dy ??10.4 mm Lt [facility] Dz ??8.1 mm Lt [facility] mean ?9.8 mm Lt [facility] vol 0.450 cm cubed Lt [facility] D (Vol) 8.5 mm Lt [facility] Dx ??11.3 mm Lt [facility] Dy ??8.0 mm Lt [facility] Dz ??7.3 mm Lt [facility] mean ?8.9 mm Lt [facility] vol 0.320 cm cubed Lt [facility] D (Vol) 7.1 mm Lt [facility] Dx ??10.3 mm Lt [facility] Dy ??7.1 mm Lt [facility] Dz ??5.1 mm Lt [facility] mean ?7.5 mm Lt [facility] vol 0.190 cm cubed Lt [facility] D (Vol) 6.2 mm Lt [facility] Dx ??8.2 mm Lt [facility] Dy ??6.3 mm Lt [facility] Dz ??5.2 mm Lt [facility] mean ?6.6 mm Lt [facility] vol 0.120 cm cubed Lt [facility] D (Vol) 5.6 mm Lt [facility] Dx ??8.8 mm Lt [facility] Dy ??6.3 mm Lt [facility] Dz ??4.0 mm Lt [facility] mean ?6.4 mm Lt [facility] vol 0.090 cm cubed Lt [facility] D (Vol) 4.6 mm Lt [facility] Dx ??9.1 mm Lt [facility] Dy ??4.6 mm Lt [facility] Dz ??2.7 mm Lt [facility] mean ?5.5 mm Lt [facility] vol 0.050 cm cubed Lt [facility] D (Vol) 3.9 mm Lt [facility] Dx ??7.2 mm Lt [facility] Dy ??5.0 mm Lt [facility] Dz ??2.3 mm Lt [facility] mean ?4.9 mm Lt [facility] vol 0.030 cm cubed Lt [facility] D (Vol) 4.5 mm Lt [facility] Dx ??5.4 mm Lt [facility] Dy ??4.8 mm Lt [facility] Dz ??3.5 mm Lt [facility] mean ?4.6 mm Lt [facility] vol 0.050 cm cubed Lt [facility] D (Vol) 3.5 mm Lt [facility] Dx ??5.7 mm Lt [facility] Dy ??4.1 mm Lt [facility] Dz ??2.3 mm Lt [facility] mean ?4.0 mm Lt [facility] vol 0.020 cm cubed Lt [facility] D (Vol) 3.2 mm Lt [facility] Dx ??5.6 mm Lt [facility] Dy ??3.0 mm Lt [facility] Dz ??2.0 mm Lt [facility] mean ?3.5 mm Lt [facility] vol 0.020 cm cubed Lt [facility] D (Vol) 2.7 mm Lt [facility] Dx ??5.0 mm Lt [facility] Dy ??2.9 mm Lt [facility] Dz ??2.0 mm Lt [facility] mean ?3.3 mm Lt [facility] vol 0.010 cm cubed Lt [facility] D (Vol) 2.7 mm Lt [facility] Dx ??3.8 mm Lt [facility] Dy ??2.9 mm Lt [facility] Dz ??2.0 mm Lt [facility] mean ?2.9 mm Lt [facility] vol 0.010 cm cubed Lt [facility] D (Vol) 2.4 mm Lt [facility] Dx ??3.8 mm Lt [facility] Dy ??2.4 mm Lt [facility] Dz ??1.7 mm Lt [facility] mean ?2.6 mm Lt [facility] vol 0.010 cm cubed Lt [facility] D (Vol) 2.2 mm Lt [facility] Dx ??3.2 mm Lt [facility] Dy ??2.1 mm Lt [facility] Dz ??1.6 mm Lt [facility] mean ?2.3 mm Lt [facility] vol 0.010 cm cubed [place] ========= Normal. Free fluid visualized: trace Impression ========= USE (IVF Follicular) - 18406 1. Anteverted uterus with trilaminar endometrium 2. Early folliculogenesis as measured above 3. No significant free fluid Follow-up ======== Labs today, plan per [facility] team Comment ======== Z31.83 encounter for assisted reproductive fertility procedure cycle Ultrasound findings discussed w/patient. DATE OF SERVICE: 12/07/2023 Procedure Note Aurora Hinton MD - 12/07/2023 Indication ======== Antag on GN 04/08 Male factor (s/p vasectomy with TESE sample) Uterus ====== Uterus: Visualized Uterus position: Anteverted Endometrium: Trilaminar endometrium Endometrial thickness, total 7.8 mm Right Ovary ========= Rt ovary: Stimulated w/ multiple follicles consistent w/ hormonaltherapy Rt ovarian follicle D1 15.3 mm Rt ovarian follicle D2 20.2 mm Rt ovarian follicle D3 11.6 mm Rt ovarian follicle mean 15.7 mm Rt ovarian follicle vol 1.877 cm cubed Rt ovarian follicle D1 15.2 mm Rt ovarian follicle D2 12.2 mm Rt ovarian follicle D3 14.1 mm Rt ovarian follicle mean 13.8 mm Rt ovarian follicle vol 1.371 cm cubed Rt ovarian follicle D1 15.8 mm Rt ovarian follicle D2 15.3 mm Rt ovarian follicle D3 5.8 mm Rt ovarian follicle mean 12.3 mm Rt ovarian follicle vol 0.737 cm cubed Rt ovarian follicle D1 14.8 mm Rt ovarian follicle D2 8.2 mm Rt ovarian follicle D3 10.2 mm Rt ovarian follicle mean 11.1 mm Rt ovarian follicle vol 0.651 cm cubed Rt ovarian follicle D1 11.8 mm Rt ovarian follicle D2 9.2 mm Rt ovarian follicle D3 9.1 mm Rt ovarian follicle mean 10.1 mm Rt ovarian follicle vol 0.521 cm cubed Rt SonoAVC D (Vol) 13.3 mm Rt SonoAVC Dx 22.5 mm Rt SonoAV[facility] Dy 13.3 mm Rt SonoAVC Dz 9.7 mm Rt SonoAV[facility] mean 15.2 mm Rt SonoAV[facility] vol 1.240 cm cubed Rt SonoAV[facility] D (Vol) 12.5 mm Rt SonoAVC Dx 22.2 mm Rt SonoAV[facility] Dy 12.3 mm Rt SonoAVC Dz 8.6 mm Rt SonoAV[facility] mean 14.4 mm Rt SonoAVC vol 1.030 cm cubed Rt SonoAVC D (Vol) 12.7 mm Rt SonoAVC Dx 19.0 mm Rt SonoAV[facility] Dy 14.1 mm Rt SonoAVC Dz 9.5 mm Rt SonoAV[facility] mean 14.2 mm Rt SonoAV[facility] vol 1.070 cm cubed Rt SonoAVC D (Vol) 12.4 mm Rt SonoAVC Dx 19.5 mm Rt SonoAV[facility] Dy 15.1 mm Rt SonoAVC Dz 8.1 mm Rt SonoAV[facility] mean 14.2 mm Rt SonoAV[facility] vol 0.990 cm cubed Rt SonoAVC D (Vol) 11.9 mm Rt SonoAVC Dx 17.6 mm Rt SonoAVC Dy 15.8 mm Rt SonoAVC Dz 7.5 mm Rt SonoAV[facility] mean 13.6 mm Rt SonoAV[facility] vol 0.890 cm cubed Rt SonoAV[facility] D (Vol) 11.0 mm Rt SonoAV[facility] Dx 22.0 mm Rt SonoAV[facility] Dy 11.1 mm Rt SonoAVC Dz 6.5 mm Rt SonoAV[facility] mean 13.2 mm Rt SonoAV[facility] vol 0.690 cm cubed Rt SonoAV[facility] D (Vol) 12.0 mm Rt SonoAV[facility] Dx 17.1 mm Rt SonoAV[facility] Dy 11.0 mm Rt SonoAV[facility] Dz 10.3 mm Rt SonoAV[facility] mean 12.8 mm Rt SonoAV[facility] vol 0.900 cm cubed Rt SonoAV[facility] D (Vol) 10.4 mm Rt SonoAV[facility] Dx 16.7 mm Rt SonoAV[facility] Dy 10.0 mm Rt SonoAVC Dz 9.0 mm Rt SonoAVC mean 11.9 mm Rt SonoAVC vol 0.590 cm cubed Rt SonoAV[facility] D (Vol) 10.9 mm Rt SonoAVC Dx 13.2 mm Rt SonoAV[facility] Dy 12.2 mm Rt SonoAVC Dz 8.6 mm Rt SonoAV[facility] mean 11.3 mm Rt SonoAV[facility] vol 0.680 cm cubed Rt SonoAV[facility] D (Vol) 10.2 mm Rt SonoAVC Dx 15.5 mm Rt SonoAV[facility] Dy 9.3 mm Rt SonoAVC Dz 8.3 mm Rt SonoAV[facility] mean 11.1 mm Rt SonoAV[facility] vol 0.550 cm cubed Rt SonoAV[facility] D (Vol) 9.7 mm Rt SonoAVC Dx 12.1 mm Rt SonoAV[facility] Dy 9.3 mm Rt SonoAVC Dz 8.5 mm Rt SonoAV[facility] mean 10.0 mm Rt SonoAV[facility] vol 0.480 cm cubed Rt SonoAV[facility] D (Vol) 8.7 mm Rt SonoAVC Dx 13.0 mm Rt SonoAV[facility] Dy 9.3 mm Rt SonoAVC Dz 6.4 mm Rt SonoAV[facility] mean 9.6 mm Rt SonoAV[facility] vol 0.340 cm cubed Rt SonoAV[facility] D (Vol) 8.4 mm Rt SonoAV[facility] Dx 13.9 mm Rt SonoAV[facility] Dy 8.2 mm Rt SonoAVC Dz 6.2 mm Rt SonoAV[facility] mean 9.4 mm Rt SonoAV[facility] vol 0.310 cm cubed Rt SonoAV[facility] D (Vol) 8.8 mm Rt SonoAV[facility] Dx 12.5 mm Rt SonoAV[facility] Dy 8.6 mm Rt SonoAVC Dz 6.8 mm Rt SonoAV[facility] mean 9.3 mm Rt SonoAV[facility] vol 0.360 cm cubed Rt SonoAV[facility] D (Vol) 7.6 mm Rt SonoAVC Dx 10.3 mm Rt SonoAV[facility] Dy 8.1 mm Rt SonoAVC Dz 5.7 mm Rt SonoAV[facility] mean 8.0 mm Rt SonoAVC vol 0.230 cm cubed Rt SonoAV[facility] D (Vol) 7.2 mm Rt SonoAVC Dx 8.9 mm Rt SonoAV[facility] Dy 7.8 mm Rt SonoAVC Dz 5.8 mm Rt SonoAV[facility] mean 7.5 mm Rt SonoAV[facility] vol 0.190 cm cubed Rt SonoAV[facility] D (Vol) 7.0 mm Rt SonoAVC Dx 10.1 mm Rt SonoAV[facility] Dy 6.8 mm Rt SonoAVC Dz 5.3 mm Rt SonoAV[facility] mean 7.4 mm Rt SonoAV[facility] vol 0.180 cm cubed Rt SonoAV[facility] D (Vol) 5.6 mm Rt SonoAV[facility] Dx 8.7 mm Rt SonoAV[facility] Dy 6.4 mm Rt SonoAVC Dz 3.8 mm Rt SonoAV[facility] mean 6.3 mm Rt SonoAV[facility] vol 0.090 cm cubed Rt SonoAVC D (Vol) 5.8 mm Rt SonoAVC Dx 7.7 mm Rt SonoAVC Dy 5.8 mm Rt SonoAVC Dz 5.0 mm Rt SonoAVC mean 6.2 mm Rt SonoAVC vol 0.100 cm cubed Rt SonoAVC D (Vol) 5.4 mm Rt SonoAVC Dx 7.6 mm Rt SonoAVC Dy 5.0 mm Rt SonoAVC Dz 4.5 mm Rt SonoAVC mean 5.7 mm Rt SonoAVC vol 0.080 cm cubed Rt SonoAV[facility] D (Vol) 4.4 mm Rt SonoAVC Dx 6.5 mm Rt SonoAV[facility] Dy 4.4 mm Rt SonoAVC Dz 3.1 mm Rt SonoAVC mean 4.7 mm Rt SonoAVC vol 0.040 cm cubed Rt SonoAVC D (Vol) 4.4 mm Rt SonoAVC Dx 6.0 mm Rt SonoAVC Dy 4.2 mm Rt SonoAVC Dz 3.7 mm Rt SonoAVC mean 4.6 mm Rt SonoAVC vol 0.050 cm cubed Rt SonoAVC D (Vol) 4.3 mm Rt SonoAVC Dx 5.8 mm Rt SonoAVC Dy 4.8 mm Rt SonoAVC Dz 2.9 mm Rt SonoAV[facility] mean 4.5 mm Rt SonoAVC vol 0.040 cm cubed Rt SonoAVC D (Vol) 4.2 mm Rt SonoAVC Dx 5.8 mm Rt SonoAVC Dy 4.8 mm Rt SonoAVC Dz 2.8 mm Rt SonoAVC mean 4.5 mm Rt SonoAVC vol 0.040 cm cubed Rt SonoAVC D (Vol) 3.3 mm Rt SonoAVC Dx 4.8 mm Rt SonoAVC Dy 4.1 mm Rt SonoAVC Dz 1.9 mm Rt SonoAVC mean 3.6 mm Rt SonoAVC vol 0.020 cm cubed Rt SonoAVC D (Vol) 3.2 mm Rt SonoAVC Dx 4.9 mm Rt SonoAVC Dy 3.0 mm Rt SonoAVC Dz 2.6 mm Rt SonoAVC mean 3.5 mm Rt SonoAVC vol 0.020 cm cubed Rt SonoAVC D (Vol) 3.1 mm Rt SonoAVC Dx 4.6 mm Rt SonoAVC Dy 3.1 mm Rt SonoAVC Dz 2.6 mm Rt SonoAVC mean 3.5 mm Rt SonoAVC vol 0.020 cm cubed Rt SonoAVC D (Vol) 2.9 mm Rt SonoAVC Dx 3.8 mm Rt SonoAVC Dy 3.4 mm Rt SonoAVC Dz 2.0 mm Rt SonoAVC mean 3.1 mm Rt SonoAV[facility] vol 0.010 cm cubed Rt SonoAVC D (Vol) 2.7 mm Rt SonoAVC Dx 4.4 mm Rt SonoAVC Dy 2.6 mm Rt SonoAVC Dz 2.0 mm Rt SonoAVC mean 3.0 mm Rt SonoAVC vol 0.010 cm cubed Rt SonoAVC D (Vol) 2.6 mm Rt SonoAVC Dx 4.4 mm Rt SonoAVC Dy 2.9 mm Rt SonoAVC Dz 1.6 mm Rt SonoAVC mean 3.0 mm Rt SonoAVC vol 0.010 cm cubed Rt SonoAVC D (Vol) 2.6 mm Rt SonoAVC Dx 4.5 mm Rt SonoAVC Dy 3.2 mm Rt SonoAVC Dz 1.3 mm Rt SonoAVC mean 3.0 mm Rt SonoAVC vol 0.010 cm cubed Rt SonoAVC D (Vol) 2.4 mm Rt SonoAVC Dx 4.3 mm Rt SonoAVC Dy 3.1 mm Rt SonoAVC Dz 1.2 mm Rt SonoAVC mean 2.9 mm Rt SonoAVC vol 0.010 cm cubed Rt SonoAVC D (Vol) 2.2 mm Rt SonoAVC Dx 4.8 mm Rt SonoAVC Dy 1.9 mm Rt SonoAVC Dz 1.4 mm Rt SonoAVC mean 2.7 mm Rt SonoAVC vol 0.010 cm cubed Rt SonoAVC D (Vol) 2.3 mm Rt SonoAVC Dx 3.3 mm Rt SonoAVC Dy 2.3 mm Rt SonoAVC Dz 1.7 mm Rt SonoAVC mean 2.5 mm Rt SonoAVC vol 0.010 cm cubed Left Ovary ======== Lt ovary: Stimulated w/ multiple follicles consistent w/ hormonaltherapy Outline: Smooth Lt ovarian follicle D1 12.5 mm Lt ovarian follicle D2 12.9 mm Lt ovarian follicle D3 10.9 mm Lt ovarian follicle mean 12.1 mm Lt ovarian follicle vol 0.915 cm cubed Lt ovarian follicle D1 14.8 mm Lt ovarian follicle D2 9.4 mm Lt ovarian follicle D3 8.4 mm Lt ovarian follicle mean 10.9 mm Lt ovarian follicle vol 0.612 cm cubed Lt SonoAVC D (Vol) 13.1 mm Lt SonoAVC Dx 20.9 mm Lt SonoAVC Dy 13.0 mm Lt SonoAVC Dz 11.4 mm Lt SonoAVC mean 15.1 mm Lt SonoAVC vol 1.180 cm cubed Lt SonoAVC D (Vol) 13.1 mm Lt SonoAVC Dx 17.2 mm Lt SonoAVC Dy 13.7 mm Lt SonoAVC Dz 10.5 mm Lt SonoAVC mean 13.8 mm Lt SonoAVC vol 1.190 cm cubed Lt SonoAVC D (Vol) 12.3 mm Lt [facility] Dx 17.3 mm Lt [facility] Dy 12.7 mm Lt [facility] Dz 10.5 mm Lt [facility] mean 13.5 mm Lt [facility] vol 0.970 cm cubed Lt [facility] D (Vol) 12.3 mm Lt [facility] Dx 18.6 mm Lt [facility] Dy 12.3 mm Lt [facility] Dz 9.4 mm Lt [facility] mean 13.4 mm Lt [facility] vol 0.980 cm cubed Lt [facility] D (Vol) 11.8 mm Lt [facility] Dx 17.7 mm Lt [facility] Dy 13.8 mm Lt [facility] Dz 8.6 mm Lt [facility] mean 13.4 mm Lt [facility] vol 0.870 cm cubed Lt [facility] D (Vol) 11.4 mm Lt [facility] Dx 20.4 mm Lt [facility] Dy 12.8 mm Lt [facility] Dz 6.6 mm Lt [facility] mean 13.3 mm Lt [facility] vol 0.770 cm cubed Lt [facility] D (Vol) 12.5 mm Lt [facility] Dx 17.8 mm Lt [facility] Dy 11.8 mm Lt [facility] Dz 9.7 mm Lt [facility] mean 13.1 mm Lt [facility] vol 1.020 cm cubed Lt [facility] D (Vol) 10.6 mm Lt [facility] Dx 19.4 mm Lt [facility] Dy 13.2 mm Lt [facility] Dz 6.7 mm Lt [facility] mean 13.1 mm Lt [facility] vol 0.630 cm cubed Lt [facility] D (Vol) 11.2 mm Lt [facility] Dx 18.3 mm Lt [facility] Dy 10.4 mm Lt [facility] Dz 8.2 mm Lt [facility] mean 12.3 mm Lt [facility] vol 0.730 cm cubed Lt [facility] D (Vol) 10.9 mm Lt [facility] Dx 19.5 mm Lt [facility] Dy 10.8 mm Lt [facility] Dz 6.7 mm Lt [facility] mean 12.3 mm Lt [facility] vol 0.680 cm cubed Lt [facility] D (Vol) 11.3 mm Lt [facility] Dx 17.4 mm Lt [facility] Dy 11.0 mm Lt [facility] Dz 8.1 mm Lt [facility] mean 12.2 mm Lt [facility] vol 0.750 cm cubed Lt [facility] D (Vol) 10.9 mm Lt [facility] Dx 15.8 mm Lt [facility] Dy 11.6 mm Lt [facility] Dz 8.3 mm Lt [facility] mean 11.9 mm Lt [facility] vol 0.670 cm cubed Lt [facility] D (Vol) 11.1 mm Lt [facility] Dx 14.0 mm Lt [facility] Dy 11.6 mm Lt [facility] Dz 9.6 mm Lt [facility] mean 11.7 mm Lt [facility] vol 0.720 cm cubed Lt [facility] D (Vol) 10.0 mm Lt [facility] Dx 13.8 mm Lt [facility] Dy 11.5 mm Lt [facility] Dz 7.7 mm Lt [facility] mean 11.0 mm Lt [facility] vol 0.530 cm cubed Lt [facility] D (Vol) 10.5 mm Lt [facility] Dx 14.7 mm Lt [facility] Dy 9.4 mm Lt [facility] Dz 8.7 mm Lt [facility] mean 10.9 mm Lt [facility] vol 0.600 cm cubed Lt [facility] D (Vol) 9.9 mm Lt [facility] Dx 13.9 mm Lt [facility] Dy 10.7 mm Lt [facility] Dz 7.6 mm Lt [facility] mean 10.7 mm Lt [facility] vol 0.500 cm cubed Lt [facility] D (Vol) 10.2 mm Lt [facility] Dx 11.3 mm Lt [facility] Dy 9.6 mm Lt [facility] Dz 9.6 mm Lt [facility] mean 10.2 mm Lt [facility] vol 0.550 cm cubed Lt [facility] D (Vol) 9.9 mm Lt [facility] Dx 12.5 mm Lt [facility] Dy 9.6 mm Lt [facility] Dz 8.4 mm Lt [facility] mean 10.2 mm Lt [facility] vol 0.520 cm cubed Lt [facility] D (Vol) 9.5 mm Lt [facility] Dx 10.8 mm Lt [facility] Dy 10.4 mm Lt [facility] Dz 8.1 mm Lt [facility] mean 9.8 mm Lt [facility] vol 0.450 cm cubed Lt [facility] D (Vol) 8.5 mm Lt [facility] Dx 11.3 mm Lt [facility] Dy 8.0 mm Lt [facility] Dz 7.3 mm Lt [facility] mean 8.9 mm Lt [facility] vol 0.320 cm cubed Lt [facility] D (Vol) 7.1 mm Lt [facility] Dx 10.3 mm Lt [facility] Dy 7.1 mm Lt [facility] Dz 5.1 mm Lt [facility] mean 7.5 mm Lt [facility] vol 0.190 cm cubed Lt [facility] D (Vol) 6.2 mm Lt [facility] Dx 8.2 mm Lt [facility] Dy 6.3 mm Lt [facility] Dz 5.2 mm Lt [facility] mean 6.6 mm Lt [facility] vol 0.120 cm cubed Lt [facility] D (Vol) 5.6 mm Lt [facility] Dx 8.8 mm Lt [facility] Dy 6.3 mm Lt [facility] Dz 4.0 mm Lt [facility] mean 6.4 mm Lt [facility] vol 0.090 cm cubed Lt [facility] D (Vol) 4.6 mm Lt [facility] Dx 9.1 mm Lt [facility] Dy 4.6 mm Lt [facility] Dz 2.7 mm Lt [facility] mean 5.5 mm Lt [facility] vol 0.050 cm cubed Lt [facility] D (Vol) 3.9 mm Lt [facility] Dx 7.2 mm Lt [facility] Dy 5.0 mm Lt [facility] Dz 2.3 mm Lt [facility] mean 4.9 mm Lt [facility] vol 0.030 cm cubed Lt [facility] D (Vol) 4.5 mm Lt [facility] Dx 5.4 mm Lt [facility] Dy 4.8 mm Lt [facility] Dz 3.5 mm Lt [facility] mean 4.6 mm Lt [facility] vol 0.050 cm cubed Lt [facility] D (Vol) 3.5 mm Lt [facility] Dx 5.7 mm Lt [facility] Dy 4.1 mm Lt [facility] Dz 2.3 mm Lt [facility] mean 4.0 mm Lt [facility] vol 0.020 cm cubed Lt [facility] D (Vol) 3.2 mm Lt [facility] Dx 5.6 mm Lt [facility] Dy 3.0 mm Lt [facility] Dz 2.0 mm Lt [facility] mean 3.5 mm Lt [facility] vol 0.020 cm cubed Lt [facility] D (Vol) 2.7 mm Lt [facility] Dx 5.0 mm Lt [facility] Dy 2.9 mm Lt [facility] Dz 2.0 mm Lt [facility] mean 3.3 mm Lt [facility] vol 0.010 cm cubed Lt [facility] D (Vol) 2.7 mm Lt [facility] Dx 3.8 mm Lt [facility] Dy 2.9 mm Lt [facility] Dz 2.0 mm Lt [facility] mean 2.9 mm Lt [facility] vol 0.010 cm cubed Lt [facility] D (Vol) 2.4 mm Lt [facility] Dx 3.8 mm Lt [facility] Dy 2.4 mm Lt [facility] Dz 1.7 mm Lt [facility] mean 2.6 mm Lt [facility] vol 0.010 cm cubed Lt [facility] D (Vol) 2.2 mm Lt [facility] Dx 3.2 mm Lt [facility] Dy 2.1 mm Lt [facility] Dz 1.6 mm Lt [facility] mean 2.3 mm Lt [facility] vol 0.010 cm cubed [place] ========= Normal. Free fluid visualized: trace Impression ========= USE (IVF Follicular) - 24256 1. Anteverted uterus with trilaminar endometrium 2. Early folliculogenesis as measured above 3. No significant free fluid Follow-up ======== Labs today, plan per [facility] team Comment ======== Z31.83 encounter for assisted reproductive fertility procedure cycle Ultrasound findings discussed w/patient. DATE OF SERVICE: 12/07/2023 Lucrecia Land MD IMG US OB RICHARD FERNANDEZ * US [facility] ADMINISTRATOR EXAM ([facility] ONLY) (12/05/2023 8:52 EDT) Anatomical Region Laterality Modality Ultrasound 12/05/2023 9:20 EDT Narrative 12/05/2023 9:49 EDT Indication ======== IVF cycle Uterus ====== Uterus: ?Visualized Uterus position: ?? mid-position Endometrial thickness, total ?? 7.1 mm Right Ovary ========= Rt ovary: ??Visualized Rt ovarian follicle D1 15.3 mm Rt ovarian follicle D2 11.0 mm Rt ovarian follicle D3 9.4 mm Rt ovarian follicle mean ?? 11.9 mm Rt ovarian follicle vol ?0.828 cm cubed Rt ovarian follicle D1 12.7 mm Rt ovarian follicle D2 10.6 mm Rt ovarian follicle D3 14.4 mm Rt ovarian follicle mean ?? 12.6 mm Rt ovarian follicle vol ?1.012 cm cubed Rt [facility] D (Vol) 14.9 mm Rt [facility] Dx ??21.9 mm Rt [facility] Dy ??18.5 mm Rt [facility] Dz ??10.6 mm Rt [facility] mean ?17.0 mm Rt [facility] vol 1.750 cm cubed Rt [facility] D (Vol) 11.8 mm Rt [facility] Dx ??16.6 mm Rt [facility] Dy ??14.0 mm Rt [facility] Dz ??8.1 mm Rt [facility] mean ?12.9 mm Rt [facility] vol 0.850 cm cubed Rt [facility] D (Vol) 11.5 mm Rt [facility] Dx ??18.7 mm Rt [facility] Dy ??12.4 mm Rt [facility] Dz ??9.4 mm Rt [facility] mean ?13.5 mm Rt [facility] vol 0.790 cm cubed Rt [facility] D (Vol) 11.3 mm Rt [facility] Dx ??19.0 mm Rt [facility] Dy ??11.0 mm Rt [facility] Dz ??7.5 mm Rt [facility] mean ?12.5 mm Rt [facility] vol 0.750 cm cubed Rt [facility] D (Vol) 10.6 mm Rt [facility] Dx ??17.2 mm Rt [facility] Dy ??10.1 mm Rt [facility] Dz ??7.7 mm Rt [facility] mean ?11.6 mm Rt [facility] vol 0.620 cm cubed Rt [facility] D (Vol) 10.3 mm Rt [facility] Dx ??17.2 mm Rt [facility] Dy ??10.7 mm Rt [facility] Dz ??7.3 mm Rt [facility] mean ?11.7 mm Rt [facility] vol 0.570 cm cubed Rt [facility] D (Vol) 9.7 mm Rt [facility] Dx ??15.1 mm Rt [facility] Dy ??10.1 mm Rt [facility] Dz ??6.8 mm Rt [facility] mean ?10.7 mm Rt [facility] vol 0.480 cm cubed Rt [facility] D (Vol) 9.6 mm Rt [facility] Dx ??12.6 mm Rt [facility] Dy ??9.0 mm Rt [facility] Dz ??8.6 mm Rt [facility] mean ?10.1 mm Rt [facility] vol 0.460 cm cubed Rt [facility] D (Vol) 9.3 mm Rt [facility] Dx ??13.8 mm Rt [facility] Dy ??8.3 mm Rt [facility] Dz ??7.7 mm Rt [facility] mean ?10.0 mm Rt [facility] vol 0.430 cm cubed Rt [facility] D (Vol) 8.5 mm Rt [facility] Dx ??10.2 mm Rt [facility] Dy ??9.1 mm Rt [facility] Dz ??6.9 mm Rt [facility] mean ?8.8 mm Rt [facility] vol 0.320 cm cubed Rt [facility] D (Vol) 7.1 mm Rt [facility] Dx ??8.7 mm Rt [facility] Dy ??7.1 mm Rt [facility] Dz ??6.0 mm Rt [facility] mean ?7.3 mm Rt [facility] vol 0.180 cm cubed Rt [facility] D (Vol) 5.6 mm Rt [facility] Dx ??9.0 mm Rt [facility] Dy ??5.2 mm Rt [facility] Dz ??4.4 mm Rt [facility] mean ?6.2 mm Rt [facility] vol 0.090 cm cubed Rt [facility] D (Vol) 5.5 mm Rt [facility] Dx ??7.0 mm Rt [facility] Dy ??5.7 mm Rt [facility] Dz ??4.4 mm Rt [facility] mean ?5.7 mm Rt [facility] vol 0.090 cm cubed Rt [facility] D (Vol) 5.4 mm Rt [facility] Dx ??8.1 mm Rt [facility] Dy ??5.2 mm Rt [facility] Dz ??4.0 mm Rt [facility] mean ?5.8 mm Rt [facility] vol 0.080 cm cubed Rt [facility] D (Vol) 5.1 mm Rt [facility] Dx ??8.2 mm Rt [facility] Dy ??6.8 mm Rt [facility] Dz ??3.3 mm Rt [facility] mean ?6.1 mm Rt [facility] vol 0.070 cm cubed Rt [facility] D (Vol) 3.9 mm Rt [facility] Dx ??5.7 mm Rt [facility] Dy ??4.4 mm Rt [facility] Dz ??2.7 mm Rt [facility] mean ?4.2 mm Rt [facility] vol 0.030 cm cubed Rt [facility] D (Vol) 3.3 mm Rt [facility] Dx ??4.2 mm Rt [facility] Dy ??3.4 mm Rt [facility] Dz ??2.7 mm Rt [facility] mean ?3.4 mm Rt [facility] vol 0.020 cm cubed Rt [facility] D (Vol) 2.7 mm Rt [facility] Dx ??3.7 mm Rt [facility] Dy ??3.1 mm Rt [facility] Dz ??1.8 mm Rt [facility] mean ?2.9 mm Rt [facility] vol 0.010 cm cubed Rt [facility] D (Vol) 2.5 mm Rt [facility] Dx ??3.5 mm Rt [facility] Dy ??3.0 mm Rt [facility] Dz ??1.7 mm Rt [facility] mean ?2.7 mm Rt [facility] vol 0.010 cm cubed Rt [facility] D (Vol) 2.3 mm Rt [facility] Dx ??3.4 mm Rt [facility] Dy ??2.5 mm Rt [facility] Dz ??1.7 mm Rt [facility] mean ?2.6 mm Rt [facility] vol 0.010 cm cubed Left Ovary ======== Lt ovary: ??Visualized Lt ovarian follicle D1 12.8 mm Lt ovarian follicle D2 9.8 mm Lt ovarian follicle D3 7.8 mm Lt ovarian follicle mean ?? 10.1 mm Lt ovarian follicle vol ?0.513 cm cubed Lt [facility] D (Vol) 11.5 mm Lt [facility] Dx ??15.9 mm Lt [facility] Dy ??11.5 mm Lt [facility] Dz ??9.0 mm Lt [facility] mean ?12.1 mm Lt [facility] vol 0.790 cm cubed Lt [facility] D (Vol) 10.5 mm Lt [facility] Dx ??15.5 mm Lt [facility] Dy ??11.6 mm Lt [facility] Dz ??7.6 mm Lt [facility] mean ?11.6 mm Lt [facility] vol 0.610 cm cubed Lt [facility] D (Vol) 10.5 mm Lt [facility] Dx ??15.1 mm Lt [facility] Dy ??10.6 mm Lt [facility] Dz ??7.9 mm Lt [facility] mean ?11.2 mm Lt [facility] vol 0.610 cm cubed Lt [facility] D (Vol) 9.9 mm Lt [facility] Dx ??19.5 mm Lt [facility] Dy ??11.4 mm Lt [facility] Dz ??5.9 mm Lt [facility] mean ?12.2 mm Lt [facility] vol 0.510 cm cubed Lt [facility] D (Vol) 9.8 mm Lt [facility] Dx ??17.0 mm Lt [facility] Dy ??10.0 mm Lt [facility] Dz ??7.1 mm Lt [facility] mean ?11.4 mm Lt [facility] vol 0.500 cm cubed Lt [facility] D (Vol) 9.6 mm Lt [facility] Dx ??12.4 mm Lt [facility] Dy ??9.6 mm Lt [facility] Dz ??8.6 mm Lt [facility] mean ?10.2 mm Lt [facility] vol 0.470 cm cubed Lt [facility] D (Vol) 9.0 mm Lt [facility] Dx ??14.7 mm Lt [facility] Dy ??9.4 mm Lt [facility] Dz ??5.7 mm Lt [facility] mean ?10.0 mm Lt [facility] vol 0.390 cm cubed Lt [facility] D (Vol) 9.0 mm Lt [facility] Dx ??14.3 mm Lt [facility] Dy ??8.8 mm Lt [facility] Dz ??6.4 mm Lt [facility] mean ?9.8 mm Lt [facility] vol 0.380 cm cubed Lt [facility] D (Vol) 9.0 mm Lt [facility] Dx ??14.7 mm Lt [facility] Dy ??11.5 mm Lt [facility] Dz ??5.1 mm Lt [facility] mean ?10.4 mm Lt [facility] vol 0.380 cm cubed Lt [facility] D (Vol) 8.7 mm Lt [facility] Dx ??11.1 mm Lt [facility] Dy ??9.6 mm Lt [facility] Dz ??6.9 mm Lt [facility] mean ?9.2 mm Lt [facility] vol 0.340 cm cubed Lt [facility] D (Vol) 8.6 mm Lt [facility] Dx ??14.1 mm Lt [facility] Dy ??7.5 mm Lt [facility] Dz ??6.8 mm Lt [facility] mean ?9.5 mm Lt [facility] vol 0.330 cm cubed Lt [facility] D (Vol) 8.6 mm Lt [facility] Dx ??11.3 mm Lt [facility] Dy ??8.3 mm Lt [facility] Dz ??7.2 mm Lt [facility] mean ?8.9 mm Lt [facility] vol 0.330 cm cubed Lt [facility] D (Vol) 8.4 mm Lt [facility] Dx ??17.9 mm Lt [facility] Dy ??8.0 mm Lt [facility] Dz ??4.7 mm Lt [facility] mean ?10.2 mm Lt [facility] vol 0.310 cm cubed Lt [facility] D (Vol) 7.7 mm Lt [facility] Dx ??13.0 mm Lt [facility] Dy ??7.1 mm Lt [facility] Dz ??5.4 mm Lt [facility] mean ?8.5 mm Lt [facility] vol 0.240 cm cubed Lt [facility] D (Vol) 7.7 mm Lt [facility] Dx ??10.7 mm Lt [facility] Dy ??7.9 mm Lt [facility] Dz ??6.3 mm Lt [facility] mean ?8.3 mm Lt [facility] vol 0.240 cm cubed Lt [facility] D (Vol) 7.4 mm Lt [facility] Dx ??9.1 mm Lt [facility] Dy ??7.8 mm Lt [facility] Dz ??5.9 mm Lt [facility] mean ?7.6 mm Lt [facility] vol 0.210 cm cubed Lt [facility] D (Vol) 7.3 mm Lt [facility] Dx ??10.3 mm Lt [facility] Dy ??8.2 mm Lt [facility] Dz ??5.7 mm Lt [facility] mean ?8.1 mm Lt [facility] vol 0.210 cm cubed Lt [facility] D (Vol) 6.7 mm Lt [facility] Dx ??10.5 mm Lt [facility] Dy ??6.9 mm Lt [facility] Dz ??4.6 mm Lt [facility] mean ?7.3 mm Lt [facility] vol 0.160 cm cubed Lt [facility] D (Vol) 6.6 mm Lt [facility] Dx ??7.8 mm Lt [facility] Dy ??6.6 mm Lt [facility] Dz ??6.1 mm Lt [facility] mean ?6.8 mm Lt [facility] vol 0.150 cm cubed Lt [facility] D (Vol) 5.9 mm Lt [facility] Dx ??7.7 mm Lt [facility] Dy ??5.9 mm Lt [facility] Dz ??4.7 mm Lt [facility] mean ?6.1 mm Lt [facility] vol 0.110 cm cubed Lt [facility] D (Vol) 5.5 mm Lt [facility] Dx ??10.2 mm Lt [facility] Dy ??6.9 mm Lt [facility] Dz ??3.3 mm Lt [facility] mean ?6.8 mm Lt [facility] vol 0.090 cm cubed Lt [facility] D (Vol) 4.0 mm Lt [facility] Dx ??6.3 mm Lt [facility] Dy ??4.3 mm Lt [facility] Dz ??2.7 mm Lt [facility] mean ?4.5 mm Lt [facility] vol 0.030 cm cubed Lt [facility] D (Vol) 3.9 mm Lt [facility] Dx ??5.6 mm Lt [facility] Dy ??4.0 mm Lt [facility] Dz ??2.8 mm Lt [facility] mean ?4.2 mm Lt [facility] vol 0.030 cm cubed Lt [facility] D (Vol) 3.8 mm Lt [facility] Dx ??7.3 mm Lt [facility] Dy ??3.9 mm Lt [facility] Dz ??2.3 mm Lt [facility] mean ?4.5 mm Lt [facility] vol 0.030 cm cubed Lt [facility] D (Vol) 3.4 mm Lt [facility] Dx ??8.4 mm Lt [facility] Dy ??3.6 mm Lt [facility] Dz ??1.6 mm Lt [facility] mean ?4.6 mm Lt [facility] vol 0.020 cm cubed Lt [facility] D (Vol) 2.1 mm Lt [facility] Dx ??3.1 mm Lt [facility] Dy ??2.5 mm Lt [facility] Dz ??1.4 mm Lt [facility] mean ?2.3 mm Lt [facility] vol 0.000 cm cubed Impression ========= Maturing Folliculogenesis Follow-up ======== per KIANNA Comment ======== Z31.83 encounter for assisted reproductive fertility procedure cycle DATE OF SERVICE: 12/05/2023 Procedure Note Cheryl Fuller MD - 12/05/2023 Indication ======== IVF cycle Uterus ====== Uterus: Visualized Uterus position: mid-position Endometrial thickness, total 7.1 mm Right Ovary ========= Rt ovary: Visualized Rt ovarian follicle D1 15.3 mm Rt ovarian follicle D2 11.0 mm Rt ovarian follicle D3 9.4 mm Rt ovarian follicle mean 11.9 mm Rt ovarian follicle vol 0.828 cm cubed Rt ovarian follicle D1 12.7 mm Rt ovarian follicle D2 10.6 mm Rt ovarian follicle D3 14.4 mm Rt ovarian follicle mean 12.6 mm Rt ovarian follicle vol 1.012 cm cubed Rt [facility] D (Vol) 14.9 mm Rt [facility] Dx 21.9 mm Rt [facility] Dy 18.5 mm Rt [facility] Dz 10.6 mm Rt [facility] mean 17.0 mm Rt [facility] vol 1.750 cm cubed Rt [facility] D (Vol) 11.8 mm Rt [facility] Dx 16.6 mm Rt [facility] Dy 14.0 mm Rt [facility] Dz 8.1 mm Rt [facility] mean 12.9 mm Rt [facility] vol 0.850 cm cubed Rt [facility] D (Vol) 11.5 mm Rt [facility] Dx 18.7 mm Rt [facility] Dy 12.4 mm Rt [facility] Dz 9.4 mm Rt [facility] mean 13.5 mm Rt [facility] vol 0.790 cm cubed Rt [facility] D (Vol) 11.3 mm Rt [facility] Dx 19.0 mm Rt [facility] Dy 11.0 mm Rt [facility] Dz 7.5 mm Rt [facility] mean 12.5 mm Rt [facility] vol 0.750 cm cubed Rt [facility] D (Vol) 10.6 mm Rt [facility] Dx 17.2 mm Rt [facility] Dy 10.1 mm Rt [facility] Dz 7.7 mm Rt [facility] mean 11.6 mm Rt [facility] vol 0.620 cm cubed Rt [facility] D (Vol) 10.3 mm Rt [facility] Dx 17.2 mm Rt [facility] Dy 10.7 mm Rt [facility] Dz 7.3 mm Rt [facility] mean 11.7 mm Rt [facility] vol 0.570 cm cubed Rt [facility] D (Vol) 9.7 mm Rt [facility] Dx 15.1 mm Rt [facility] Dy 10.1 mm Rt [facility] Dz 6.8 mm Rt [facility] mean 10.7 mm Rt [facility] vol 0.480 cm cubed Rt [facility] D (Vol) 9.6 mm Rt [facility] Dx 12.6 mm Rt [facility] Dy 9.0 mm Rt [facility] Dz 8.6 mm Rt [facility] mean 10.1 mm Rt [facility] vol 0.460 cm cubed Rt [facility] D (Vol) 9.3 mm Rt [facility] Dx 13.8 mm Rt [facility] Dy 8.3 mm Rt [facility] Dz 7.7 mm Rt [facility] mean 10.0 mm Rt [facility] vol 0.430 cm cubed Rt [facility] D (Vol) 8.5 mm Rt [facility] Dx 10.2 mm Rt [facility] Dy 9.1 mm Rt [facility] Dz 6.9 mm Rt [facility] mean 8.8 mm Rt [facility] vol 0.320 cm cubed Rt [facility] D (Vol) 7.1 mm Rt [facility] Dx 8.7 mm Rt [facility] Dy 7.1 mm Rt [facility] Dz 6.0 mm Rt [facility] mean 7.3 mm Rt [facility] vol 0.180 cm cubed Rt [facility] D (Vol) 5.6 mm Rt [facility] Dx 9.0 mm Rt [facility] Dy 5.2 mm Rt [facility] Dz 4.4 mm Rt [facility] mean 6.2 mm Rt [facility] vol 0.090 cm cubed Rt [facility] D (Vol) 5.5 mm Rt [facility] Dx 7.0 mm Rt [facility] Dy 5.7 mm Rt [facility] Dz 4.4 mm Rt [facility] mean 5.7 mm Rt [facility] vol 0.090 cm cubed Rt [facility] D (Vol) 5.4 mm Rt [facility] Dx 8.1 mm Rt [facility] Dy 5.2 mm Rt [facility] Dz 4.0 mm Rt [facility] mean 5.8 mm Rt [facility] vol 0.080 cm cubed Rt [facility] D (Vol) 5.1 mm Rt [facility] Dx 8.2 mm Rt [facility] Dy 6.8 mm Rt [facility] Dz 3.3 mm Rt [facility] mean 6.1 mm Rt [facility] vol 0.070 cm cubed Rt [facility] D (Vol) 3.9 mm Rt [facility] Dx 5.7 mm Rt [facility] Dy 4.4 mm Rt [facility] Dz 2.7 mm Rt [facility] mean 4.2 mm Rt [facility] vol 0.030 cm cubed Rt [facility] D (Vol) 3.3 mm Rt [facility] Dx 4.2 mm Rt [facility] Dy 3.4 mm Rt [facility] Dz 2.7 mm Rt [facility] mean 3.4 mm Rt [facility] vol 0.020 cm cubed Rt [facility] D (Vol) 2.7 mm Rt [facility] Dx 3.7 mm Rt [facility] Dy 3.1 mm Rt [facility] Dz 1.8 mm Rt [facility] mean 2.9 mm Rt [facility] vol 0.010 cm cubed Rt [facility] D (Vol) 2.5 mm Rt [facility] Dx 3.5 mm Rt [facility] Dy 3.0 mm Rt [facility] Dz 1.7 mm Rt [facility] mean 2.7 mm Rt [facility] vol 0.010 cm cubed Rt [facility] D (Vol) 2.3 mm Rt [facility] Dx 3.4 mm Rt [facility] Dy 2.5 mm Rt [facility] Dz 1.7 mm Rt [facility] mean 2.6 mm Rt [facility] vol 0.010 cm cubed Left Ovary ======== Lt ovary: Visualized Lt ovarian follicle D1 12.8 mm Lt ovarian follicle D2 9.8 mm Lt ovarian follicle D3 7.8 mm Lt ovarian follicle mean 10.1 mm Lt ovarian follicle vol 0.513 cm cubed Lt [facility] D (Vol) 11.5 mm Lt [facility] Dx 15.9 mm Lt [facility] Dy 11.5 mm Lt [facility] Dz 9.0 mm Lt [facility] mean 12.1 mm Lt [facility] vol 0.790 cm cubed Lt [facility] D (Vol) 10.5 mm Lt [facility] Dx 15.5 mm Lt [facility] Dy 11.6 mm Lt [facility] Dz 7.6 mm Lt [facility] mean 11.6 mm Lt [facility] vol 0.610 cm cubed Lt [facility] D (Vol) 10.5 mm Lt [facility] Dx 15.1 mm Lt [facility] Dy 10.6 mm Lt [facility] Dz 7.9 mm Lt [facility] mean 11.2 mm Lt [facility] vol 0.610 cm cubed Lt [facility] D (Vol) 9.9 mm Lt [facility] Dx 19.5 mm Lt [facility] Dy 11.4 mm Lt [facility] Dz 5.9 mm Lt [facility] mean 12.2 mm Lt [facility] vol 0.510 cm cubed Lt [facility] D (Vol) 9.8 mm Lt [facility] Dx 17.0 mm Lt [facility] Dy 10.0 mm Lt [facility] Dz 7.1 mm Lt [facility] mean 11.4 mm Lt [facility] vol 0.500 cm cubed Lt [facility] D (Vol) 9.6 mm Lt [facility] Dx 12.4 mm Lt [facility] Dy 9.6 mm Lt [facility] Dz 8.6 mm Lt [facility] mean 10.2 mm Lt [facility] vol 0.470 cm cubed Lt [facility] D (Vol) 9.0 mm Lt [facility] Dx 14.7 mm Lt [facility] Dy 9.4 mm Lt [facility] Dz 5.7 mm Lt [facility] mean 10.0 mm Lt [facility] vol 0.390 cm cubed Lt [facility] D (Vol) 9.0 mm Lt [facility] Dx 14.3 mm Lt [facility] Dy 8.8 mm Lt [facility] Dz 6.4 mm Lt [facility] mean 9.8 mm Lt [facility] vol 0.380 cm cubed Lt [facility] D (Vol) 9.0 mm Lt [facility] Dx 14.7 mm Lt [facility] Dy 11.5 mm Lt [facility] Dz 5.1 mm Lt [facility] mean 10.4 mm Lt [facility] vol 0.380 cm cubed Lt [facility] D (Vol) 8.7 mm Lt [facility] Dx 11.1 mm Lt [facility] Dy 9.6 mm Lt [facility] Dz 6.9 mm Lt [facility] mean 9.2 mm Lt [facility] vol 0.340 cm cubed Lt [facility] D (Vol) 8.6 mm Lt [facility] Dx 14.1 mm Lt [facility] Dy 7.5 mm Lt [facility] Dz 6.8 mm Lt [facility] mean 9.5 mm Lt [facility] vol 0.330 cm cubed Lt [facility] D (Vol) 8.6 mm Lt [facility] Dx 11.3 mm Lt [facility] Dy 8.3 mm Lt [facility] Dz 7.2 mm Lt [facility] mean 8.9 mm Lt [facility] vol 0.330 cm cubed Lt [facility] D (Vol) 8.4 mm Lt [facility] Dx 17.9 mm Lt [facility] Dy 8.0 mm Lt [facility] Dz 4.7 mm Lt [facility] mean 10.2 mm Lt [facility] vol 0.310 cm cubed Lt [facility] D (Vol) 7.7 mm Lt [facility] Dx 13.0 mm Lt [facility] Dy 7.1 mm Lt [facility] Dz 5.4 mm Lt [facility] mean 8.5 mm Lt [facility] vol 0.240 cm cubed Lt [facility] D (Vol) 7.7 mm Lt [facility] Dx 10.7 mm Lt [facility] Dy 7.9 mm Lt [facility] Dz 6.3 mm Lt [facility] mean 8.3 mm Lt [facility] vol 0.240 cm cubed Lt [facility] D (Vol) 7.4 mm Lt [facility] Dx 9.1 mm Lt [facility] Dy 7.8 mm Lt [facility] Dz 5.9 mm Lt [facility] mean 7.6 mm Lt [facility] vol 0.210 cm cubed Lt [facility] D (Vol) 7.3 mm Lt [facility] Dx 10.3 mm Lt [facility] Dy 8.2 mm Lt [facility] Dz 5.7 mm Lt [facility] mean 8.1 mm Lt [facility] vol 0.210 cm cubed Lt [facility] D (Vol) 6.7 mm Lt [facility] Dx 10.5 mm Lt [facility] Dy 6.9 mm Lt [facility] Dz 4.6 mm Lt [facility] mean 7.3 mm Lt [facility] vol 0.160 cm cubed Lt [facility] D (Vol) 6.6 mm Lt [facility] Dx 7.8 mm Lt [facility] Dy 6.6 mm Lt [facility] Dz 6.1 mm Lt [facility] mean 6.8 mm Lt [facility] vol 0.150 cm cubed Lt [facility] D (Vol) 5.9 mm Lt [facility] Dx 7.7 mm Lt [facility] Dy 5.9 mm Lt [facility] Dz 4.7 mm Lt [facility] mean 6.1 mm Lt [facility] vol 0.110 cm cubed Lt [facility] D (Vol) 5.5 mm Lt [facility] Dx 10.2 mm Lt [facility] Dy 6.9 mm Lt [facility] Dz 3.3 mm Lt [facility] mean 6.8 mm Lt [facility] vol 0.090 cm cubed Lt [facility] D (Vol) 4.0 mm Lt [facility] Dx 6.3 mm Lt [facility] Dy 4.3 mm Lt [facility] Dz 2.7 mm Lt [facility] mean 4.5 mm Lt [facility] vol 0.030 cm cubed Lt [facility] D (Vol) 3.9 mm Lt [facility] Dx 5.6 mm Lt [facility] Dy 4.0 mm Lt [facility] Dz 2.8 mm Lt [facility] mean 4.2 mm Lt [facility] vol 0.030 cm cubed Lt [facility] D (Vol) 3.8 mm Lt [facility] Dx 7.3 mm Lt [facility] Dy 3.9 mm Lt [facility] Dz 2.3 mm Lt [facility] mean 4.5 mm Lt [facility] vol 0.030 cm cubed Lt [facility] D (Vol) 3.4 mm Lt [facility] Dx 8.4 mm Lt [facility] Dy 3.6 mm Lt [facility] Dz 1.6 mm Lt [facility] mean 4.6 mm Lt [facility] vol 0.020 cm cubed Lt [facility] D (Vol) 2.1 mm Lt [facility] Dx 3.1 mm Lt [facility] Dy 2.5 mm Lt [facility] Dz 1.4 mm Lt [facility] mean 2.3 mm Lt [facility] vol 0.000 cm cubed Impression ========= Maturing Folliculogenesis Follow-up ======== per KIANNA Comment ======== Z31.83 encounter for assisted reproductive fertility procedure cycle DATE OF SERVICE: 12/05/2023 Lucrecia Land MD IMG US OB ORDERA BLES * US BASELINE INVITRO (11/26/2023 7:53 EDT) Anatomical Region Laterality Modality Pelvis Ultrasound 11/26/2023 8:01 EDT Narrative 11/26/2023 8:21 EDT Indication ======== IVF cycle #1 baseline GN 04/08 Uterus ====== Uterus: ?Appears normal Myometrium: ?Mild adenomyosis Endometrium: ?? Thin endometrium Endometrial thickness, total ?? 4.3 mm Right Ovary ========= Rt ovary: ??Visualized, normal appearance Rt ovary other findings: ?? afc 10 Left Ovary ======== Lt ovary: ??Visualized, normal appearance Lt ovary other findings: ?? afc 6 Cul de Sac ========= No free fluid visualized Impression ========= Baseline - [id number] with mock as above Follow-up ======== per KIANNA Comment ======== Mock CX 3 Fund 7 transf 6 Z31.83 encounter for assisted reproductive fertility procedure cycle DATE OF SERVICE: 11/26/2023 Procedure Note Sheila Robb MD - 11/26/2023 Indication ======== IVF cycle #1 baseline GN 2 Uterus ====== Uterus: Appears normal Myometrium: Mild adenomyosis Endometrium: Thin endometrium Endometrial thickness, total 4.3 mm Right Ovary ========= Rt ovary: Visualized, normal appearance Rt ovary other findings: afc 10 Left Ovary ======== Lt ovary: Visualized, normal appearance Lt ovary other findings: afc 6 Cul de Sac ========= No free fluid visualized Impression ========= Baseline - [id number] with mock as above Follow-up ======== per KIANNA Comment ======== Mock CX 3 Fund 7 transf 6 Z31.83 encounter for assisted reproductive fertility procedure cycle DATE OF SERVICE: 11/26/2023 Lucrecia Land MD [facility] OB ORDERA BLES * HEPATITIS C AB W REFLEX TO HCV RNA BY PCR (09/06/2023 10:26 EDT) Hep C Antibody Negative Negative 09/06/2023 12:56 EDT [facility] Blood VENOUS BLOOD / Unknown Venipuncture / Unknown 09/06/2023 10:26 EDT 09/06/2023 10:50 EDT Elizabeth Ingram DO CHEMISTRY & BLOOD G ORDERABLES [facility] [address] [place], [place] [id number] from Last 3 Months or Most Recently Relevant to Health Maintenance Care Teams Process Control Programmer Relationship Specialty Start Date End Date Lisa Mcgregor FNP [address] [place] [address] [address] [place] [id number] PCP - General 05/05/22 Md Alfaro MD 05/05/22
--- OUTSIDE RECORDS SUMMARY | 2024-01-06 08:21 | XMS_ITS | Encounter Summary ---
Author Organization [facility] Address [address] [place] [address] Care Team Providers Care Ceiling Cleaner Name Role Phone BalbirLisa [facility] Primary Care Provider [phone] Md MICHAELA Alfaro Unavailable Unavailable Encounter Details Date Type Department Care Team (Late st Contact Info) Description 12/31/2023 9:00 EDT Phlebotomy Only [facility] ED Center 2 Phlebotomy [address] [place] [address] Instructor Nurse, [facility] Phlebotomy Encounter for in vitro fertilization [...] Contact Info) Description 01/13/2024 13:15 EST Telemedicine [facility] Reproductive Medicine & Infertility Center - [facility] [address] [place], [place] [phone] Layla Reid MD 111 [facility], Level 4 [place] [address] documented as of this encounter Procedures Procedure Name Priority Date/Time Associated Diagnosis Comments QUANT BETA HCG, Routine 12/31/2023 9:21 EDT Encounter for in vitro fertilization documented in this encounter Results * (ABNORMAL) QUANT BETA HCG, (12/31/2023 9:21 EDT) Beta HCG Quant, 89(H) <5 mIU/mL 12/31/2023 10:27 EDT [facility] Comment: NOTE: : Negative: [...] Reid MD CHEMISTRY & BLOOD GAS ORDERABLES [facility] [address] [place] [address] documented in this encounter Visit Diagnoses Diagnosis Encounter for in vitro fertilization Encounter for assisted reproductive fertility procedure cycle documented in this encounter Care Teams Ceiling Cleaner Relationship Specialty Start Date End Date Lisa Mcgregor FNP [address] [place] [address] [address] [place] [address] PCP - General 05/05/22 Md Alfaro MD 05/05/22 documented as of this encounter
--- OUTSIDE RECORDS SUMMARY | 2024-01-06 08:21 | XMS_ITS | Encounter Summary ---
Author Organization [facility] Address [address] [place] [address] Care Team Providers Care Test Tube Maker Name Role Phone BalbirLisa [facility] Primary Care Provider Md MICHAELA Alfaro Unavailable Unavailable Reason for Visit * Reason Comments Vaginal Bleeding ABNORMALLY RISING HC G, AND STARTED BLEEDING, R/O ECTOPIC. Reports mild spotting yesterday, no bleeding today, pt reports being 5 weeks Shoulder Pain Pt reports being sen t from IVF clinic r/t atraumatic left shoulder pain, rates pain at 7/10, denies numbness/tingling, full ROM Encounter Details Date Type Department Care Team (Late st Contact Info) Description 01/04/2024 8:33 EDT - 01/04/2024 12:50 EDT Emergency [facility] Emergency Department - [facility] [address] [place] [address] Kirby Velazquez MD [address] [facility], Level 1 [place] [address] Threatened (Primary Dx) Discharge Disposition: Home or [...] :39 EDT documented as of this encounter Last Filed Vital Signs Vital Sign Reading Time Taken Comments Blood Pressure 124/61 01/04/2024 1249 EDT Pulse - - Temperature 36.7 ??C (98 ??F) 01/04/2024 1249 EDT Respiratory Rate 18 01/04/2024 1249 EDT Oxygen Saturation 100% 01/04/2024 1200 EDT Inhaled Oxygen Concentration - - Weight 67.6 kg (149 lb) 01/04/2024 0831 EDT Height - - Body Mass Index 28.62 11/26/2023 0838 EDT documented in this encounter Discharge Instructions * Discharge Instructions* Kirby Velazquez MD - 01/04/2024 12:22 EDT Discussed her case with the reproductive endocrinology fellow who will give you a call this afternoon. They feel that it is safe for you to return to your home and would expect you to potentially have more bleeding. Please follow-up with KIANNA as needed. * Attachments The following attachments cannot be sent through Care Everywhere. * Miscarriage: Threatened (Iraqi) documented in this encounter Medications at Time of Discharge Medication Sig Dispensed Refills Start Date End Date acyclovir (ZOVIRAX) 200 mg capsule Take 2 Capsules by mouth 2 times daily. cholecalciferol, Vitamin D3, 25 mcg (1,000 unit) tablet Take 2 Tablets by mouth daily. chorionic gonadotropin, human (PREGNYL) 10,000 unit injection Injected 1 mL into the skin once when directed. 1 Each 11/02/2023 estradioL (ESTRACE) 2 mg tablet Take 1 Tablet by mouth 3 times daily. 90 Tablet 12/29/2023 Follitropin Arnoldo (GONAL-F) 1,050 unit recon soln [...] fum/folic/dha (-1 ORAL) Take by mouth daily. progesterone in oil 50 mg/mL injection Inject 1 mL into the muscle daily. 3 Each 2 12/29/2023 documented as of this encounter Discharge Disposition Disposition Code Departure Means Destination Comment s Home or Self Usp documented in this encounter ED Notes * Raquel Hooker, CHAPARRO - 01/04/2024 1234 EDT AVS reviewed. IV removed. Pt successfully d/c'ed home with all belongings. To follow up with IVF clinic and PCP * Carol Pemberton - 01/04/2024 0938 EDT Blood drawn via saline lock per protocol, tiger, blue, green, and purple tube(s) sent to lab per order. * Raquel Hooker, CHAPARRO - 01/04/2024 0839 EDT Pt presenting today for L shoulder pain/tingling. Called IVF clinic and as no provider was available to see her was told to come into the ED. No spotting today, mild pelvic pain yesterday. Per pt sheis 5wks 1D . Plan for repeat bloodwork and repeat US. * Randa Robledo RN - 01/04/2024 0831 EDT Chief Complaint Patient presents with Vaginal Bleeding ABNORMALLY RISING HCG, AND STARTED BLEEDING, R/O ECTOPIC. Reports mild spotting yesterday, no bleeding today, pt reports being 5 weeks Shoulder Pain Pt reports being sent from IVF clinic r/t atraumatic left shoulder pain, rates pain at 7/10, deniesnumbness/tingling, full ROM * Melody Ace RN - 01/04/2024 0817 EDT TCALL: ОЛЕГ MURCIA 89 REFERRED BY IVF CLINIC. ABNORMALLY RISING HCG, AND STARTED BLEEDING, R/O ECTOPIC. * Kirby Velazquez MD - 01/04/2024 0845 EDT Emergency Department Visit Medical Decision Making IVF patient with likely failed . No TTP on exam and no ectopic on US. Will DC, plan for KIANNA fellow to call patient this afternoon. Medical Decision Making Problems Addressed: Threatened : complicated acute illness or injury Amount and/or Complexity of Data Reviewed Labs: ordered. Radiology: ordered. Final diagnoses: None Disposition: No disposition on file Chief complaint: vaginal bleeding, shoulder pain HPI Tiny Juarez is a 33 y.o. patient with no relevant past medical history who presents to the EDfor vaginal bleeding and shoulder pain. She states that she began experiencing left shoulder pain and tingling while driving this morning. She reports decreased range of motion due to pain, but denies any weakness. She denies any pain with palpation or recent shoulder trauma. She states that she was driving into the hospital for repeat blood work due to an abnormal HCG level. She is followed by the IVF clinic who noted that her HCG is low for a 5 week . When she began to experience armpain, she contacted the clinic. They were unable to see her today so they recommended that she present to the ED for evaluation. She experienced some mild abdominal and pelvic pain and spotting yesterday, but she has not experienced these symptoms today. She denies weakness, arm swelling, or abdominal pain. History was provided by: patient Records reviewed include:prior RE notes Patient's pertinent PMH, FH, SH were reviewed and edited as necessary. Nursing notes reviewed. A medical screening exam was performed. Physical Exam BP 121/63 (BP Cuff Location: Right arm, BP Patient Position: Sitting) Temp 36.6 ??C (97.9 ??F) (Oral) Wt 67.6 kg (149 lb) SpO2 100% BMI 28.62 kg/m?? Physical Exam Nursing notes and vital signs were reviewed. Constitutional: Well appearing in no acute distress HEENT: NC/AT. Pupils equal and reactive to light, no scleral icterus Moist oral mucosa without apparent lesions Neck: Full ROM, no cervical LAD Abdomen: Soft NT/ND Skin: No rash on exposed skin Extremities: No deformities, warm and well perfused. Neuro: Awake, alert, oriented. Speech is fluent. Movements show normal coordination Psych: No agitation or overt thought disorder Procedures Procedures This documentation is recorded by Merissa Lorenzo acting as Scribe under the direction and presence of Kirby Velazquez MD. Kirby Velazquez MD: I personally performed the services recorded by the scribe in my presence. I confirm the scribe's documentation has been reviewed by me to accurately and completely record my work, treatment, procedures, and medical decision making. Note has been documented by Merissa Lorenzo on 01/04/2024 documented in this encounter Plan of Treatment Upcoming Encounters Date Type Department Care Team (Late st Contact Info) Description 01/13/2024 13:15 EST Telemedicine [facility] Reproductive Medicine & Infertility Center [address] [phone] Layla Reid MD [address] [place] [address], [address] [place] [address] Pending Results Name Type Priority Associated Diagnoses Date /Time EXTRA BLOOD DRAW (RAINBOW) Lab Routine 01/04/2024 9:30 EDT Scheduled Orders Name Type Priority Associated Diagnoses Orde r Schedule EXTRA BLOOD DRAW (RAINBOW) Lab Routine One Time STAT fo r 1 Occurrences starting 01/04/2024 until 01/04/2024 HOLD SST Lab Routine Once for 1 Occ urrences starting 01/04/2024 until 01/04/2024 documented as of this encounter Procedures Procedure Name Priority Date/Time Associated Diagnosis Comments US OB FIRST TRIMESTER (LESS THAN 14 WEEKS) TA AND TV AND LTD DUPLEX STAT 01/04/2024 10:20 EDT HOLD LAVENDER TOP Routine 01/04/2024 9:30 EDT HOLD GREEN TOP Routine 01/04/2024 9:30 EDT HOLD BLUE TOP Routine 01/04/2024 9:30 EDT QUANT BETA HCG, STAT 01/04/2024 9:30 EDT documented in this encounter Results * US OB FIRST TRIMESTER (LESS [...] 3 days Prior ultrasound dating: Not available. [place]-rump length: No pole is identified. IMPRESSION: of unknown location. Differential considerations include non- visualized early intrauterine , non-visualized ectopic , and completed early loss. Follow-up with serial HCG, obstetric ultrasound, and STEWARD/STEWARDESS DECK consultation is suggested. Reference: Mandi Falcon, et al. A lexicon for first-trimester US: Society of Radiologists in Ultrasound Consensus Conference recommendations. Radiology 312.2 (2023): [id number]. [id number] Narrative 01/04/2024 10:34 EDT US OB FIRST TRIMESTER (LESS THAN 14 WEEKS) TA AND TV AND LTD DUPLEX ??01/04/2024 9:45 AM SIGNS AND SYMPTOMS/COMMENTS: ??spotting, abnormal HCG COMPARISON: Pelvic ultrasound on 12/16/2023 DUPLEX: Indication for Duplex: Concern for ovarian torsion and/or mass Technique: Color and spectral Doppler ultrasound of the pelvis was performed. Resulting Agency Comment [id number] Procedure Note Romeo Salinas MD - 01/04/2024 US OB FIRST TRIMESTER (LESS THAN 14 WEEKS) TA AND TV AND LTD CLYEZO0401/04/2024 9:45 AM SIGNS AND SYMPTOMS/COMMENTS: spotting, abnormal [...] 3 days Prior ultrasound dating: Not available. [place]-rump length: No pole is identified. IMPRESSION: of unknown location. Differential considerations includenon-visualized early intrauterine , non-visualized ectopicpregnancy, and completed early loss. Follow-up with serial HCG,obstetric ultrasound, and STEWARD/STEWARDESS DECK consultation is suggested. Reference: Mandi Falcon, et al. A lexicon for first-trimester US:Society of Radiologists in Ultrasound Consensus Conferencerecommendations. Radiology 312.2 (2023): [id number]. [id number] Kirby Velazquez MD IMG US OB ORDERABLE S * HOLD BLUE TOP (01/04/2024 9:30 EDT) Hold Hold 01/04/2024 10:45 EDT [facility] Blood VENOUS BLOOD / Unknown Venipuncture / Unknown 01/04/2024 9:30 EDT 01/04/2024 9:34 EDT Kirby Velazquez MD LAB INFO SERVICE AN D SUPPORT & PHONE RESULT [facility] [address] [place], [place] [phone] * HOLD LAVENDER TOP (01/04/2024 9:30 EDT) Hold Hold 01/04/2024 10:45 EDT [facility] Blood VENOUS BLOOD / Unknown Venipuncture / Unknown 01/04/2024 9:30 EDT 01/04/2024 9:33 EDT Kirby Velazquez MD LAB INFO SERVICE AN D SUPPORT & PHONE RESULT [facility] [address] [place], [place] [phone] * HOLD GREEN TOP (01/04/2024 9:30 EDT) Hold Hold 01/04/2024 10:45 EDT [facility] Blood VENOUS BLOOD / Unknown Venipuncture / Unknown 01/04/2024 9:30 EDT 01/04/2024 9:33 EDT Kirby Velazquez MD LAB INFO SERVICE AN D SUPPORT & PHONE RESULT Performing Organization Address [facility] Co de Phone Number [facility] [address] [place] [address] * (ABNORMAL) QUANT BETA HCG, (01/04/2024 9:30 EDT) Beta HCG Quant, 80(H) <5 mIU/mL 01/04/2024 10:11 EDT [facility] Comment: NOTE: : [...] Velazquez MD CHEMISTRY & BLOOD G ORDERABLES Performing Organization Address City/[facility]/ZIP Co de Phone Number [facility] [address] [place] [address] documented in this encounter Visit Diagnoses Diagnosis Threatened - Primary Threatened , unspecified as to episode of care documented in this encounter Care Teams Test Tube Maker Relationship Specialty Start Date End Date Lisa Mcgregor FNP [address] [place] [phone] PCP - General 05/05/22 Md Alfaro MD 05/05/22 documented as of this encounter
--- OUTSIDE RECORDS SUMMARY | 2024-01-06 08:21 | XMS_ITS | Encounter Summary ---
Author Organization [facility] Address [address] [place] [address] Care Team Providers Care Rabbit Fancier Name Role Phone Lisa Mcgregor [facility] Primary Care Provider [phone] Md MICHAELA Alfaro Unavailable Unavailable Encounter Details Date Type Department Care Team (Late st Contact Info) Description 12/20/2023 Documentation Visit [facility] Reproductive Medicine & Infertility [address] [phone] Lucrecia Land MD 111 [facility] [address] [place] [phone] Social History Tobacco Use Types Packs/Day Years [...] Contact Info) Description 01/13/2024 13:15 EST Telemedicine [facility] Reproductive Medicine & Infertility [address] [phone] Layla Reid MD 111 [facility], Level [address] [place] [phone] documented as of this encounter Visit Diagnoses Not on filedocumented in this encounter Care Teams Rabbit Fancier Relationship Specialty Start Date End Date Lisa Mcgregor FNP 26 [facility] [address] [place] [phone] PCP - General 05/05/22 Md Alfaro MD 05/05/22 documented as of this encounter
--- OUTSIDE RECORDS SUMMARY | 2024-01-06 08:21 | XMS_ITS | Encounter Summary ---
Author Organization [facility] Address [address] [place] [address] Care Team Providers Care Applied Marine Physics Professor Name Role Phone Balbir Lisa [facility] Primary Care Provider [phone] Md MICHAELA Alfaro Unavailable Unavailable Reason for Visit * Reason Onset Date Comments Results 12/29/2023 Encounter Details Date Type Department Care Team (Late st Contact Info) Description 12/29/2023 Telephone [facility] Reproductive Medicine & Infertility Center - [facility] [address] [place], [place] [phone] Lucercia Land MD [address] [facility], [address] [place] [address] Results Social History Tobacco Use Types Packs/Day Years [...] :39 EDT documented as of this encounter Miscellaneous Notes * Telephone Encounter - Lucrecia Land MD - 12/29/2023 1330 EDT Call to Tiny at her request to discuss hCG levels; reviewed low starting value but appropriate rise today. Discussed expectations for Wednesday's result (50% rise or greater). Offered support and acknowledged limits of what hCG can tell us but that right now we can be cautiously optimistic. Let her know we may repeat beyond 3 values if hCG trend is borderline or still quite low which she is accepting of. Lucrecia Land MD Reproductive Endocrinology and Infertility Fellow (PGY7) [facility] documented in this encounter Plan of Treatment Upcoming Encounters Date Type Department Care Team (Late st Contact Info) Description 01/13/2024 13:15 EST Telemedicine [facility] Reproductive Medicine & Infertility Center - [address] [phone] Layla Reid MD [address] [place] [address], [address] [place] [address] documented as of this encounter Visit Diagnoses Not on filedocumented in this encounter Care Teams Applied Marine Physics Professor Relationship Specialty Start Date End Date Lisa Mcgregor FNP [address] [place] [address] [address] [place] [phone] PCP - General 05/05/22 Md Alfaro MD 05/05/22 documented as of this encounter
--- OUTSIDE RECORDS SUMMARY | 2024-01-06 08:21 | XMS_ITS | Encounter Summary ---
Author Organization [facility] Address [address] [place] [address] Care Team Providers Care Corporate Fitness Program Coordinator Name Role Phone Lisa Mcgregor [facility] Primary Care Provider [phone] Md MICHAELA Alfaro Unavailable Unavailable Encounter Details Date Type Department Care Team (Late st Contact Info) Description 12/23/2023 Documentation Visit [facility] Reproductive Medicine & Infertility Center - [address] [address] Lucrecia Land MD 111 [facility], Level [address] [place] [phone] Social History Tobacco Use Types Packs/Day Years [...] :39 EDT documented as of this encounter Progress Notes * Lucrecia Land MD - 12/23/2023 1046 EDT Luteal support labs, recheck after low estradiol and high progesterone on day 7 with dose adjustments of both: Component Latest Ref Rng 12/23/2023 Estradiol See Note pg/mL 605 Progesterone See Table ng/mL 27.9 Adequate values on 8mg daily estrace (one additional tablet PM vaginally) and 50mg CAROLYNN, plan to continue with no further checks needed. Lucrecia Land MD Reproductive Endocrinology and Infertility Fellow (PGY7) [facility] documented in this encounter Plan of Treatment Upcoming Encounters Date Type Department Care Team (Late st Contact Info) Description 01/13/2024 13:15 EST Telemedicine [facility] Reproductive Medicine & Infertility Center - [address] [phone] Layla Reid MD 111 [facility], [address] [place] [phone] documented as of this encounter Visit Diagnoses Not on filedocumented in this encounter Care Teams Corporate Fitness Program Coordinator Relationship Specialty Start Date End Date Lisa Mcgregor FNP 26 [facility] [address] [place] [phone] PCP - General 05/05/22 Md Alfaro MD 05/05/22 documented as of this encounter
--- OUTSIDE RECORDS SUMMARY | 2024-01-06 08:21 | XMS_ITS | Encounter Summary ---
Author Organization [facility] Address [address] [place] [address] Care Team Providers Care Produce Runner Name Role Phone Lisa Mcgregor [facility] Primary Care Provider Md MICHAELA Alfaro Unavailable Unavailable Encounter Details Date Type Department Care Team (Latest Contact Info) Description 01/04/2024 Travel Social History Tobacco Use Types Packs/Day Years [...] Contact Info) Description 01/13/2024 13:15 EST Telemedicine [facility] Reproductive Medicine & Infertility Center - [address] [address] Layla Reid MD 111 [facility], Level [address] [place] [address] documented as of this encounter Visit Diagnoses Not on filedocumented in this encounter Care Teams Produce Runner Relationship Specialty Start Date End Date Lisa Mcgregor FNP 26 [facility] [address] [place] [phone] PCP - General 05/05/22 Md Alfaro MD 05/05/22 documented as of this encounter
--- OUTSIDE RECORDS SUMMARY | 2024-01-06 08:21 | XMS_ITS | Encounter Summary ---
Author Organization [facility] Address [address] [place] [address] Care Team Providers Care Finishing Tunnel Operator Name Role Phone Balbir Lisa [facility] Primary Care Provider [phone] Md MICHAELA Alfaro Unavailable Unavailable Encounter Details Date Type Department Care Team (Late st Contact Info) Description 01/02/2024 8:[address] [facility] ED Center 2 Phlebotomy [address] [place] [address] Micromatic Hone Operator, Acc Phlebotomy resulting from assisted reproductive technology in first trimester Social History Tobacco Use Types Packs/Day Years [...] Contact Info) Description 01/13/2024 13:15 EST Telemedicine [facility] Reproductive Medicine & Infertility Center - [facility] [address] [place] [address] Layla Reid MD 111 [facility], [address] [place] [address] documented as of this encounter Procedures Procedure Name Priority Date/Time Associated Diagnosis Comments QUANT BETA HCG, Routine 01/02/2024 8:26 EDT resulting from assisted reproductive technology in first trimester documented in this encounter Results * (ABNORMAL) QUANT BETA HCG, (01/02/2024 8:26 EDT) Beta HCG Quant, 115(H) <5 mIU/mL 01/02/2024 9:37 EDT [facility] Comment: NOTE: : Negative: Less than 5mIU/mL Indeterminant: Between 5 and 25 mIU/mL, recommend repeat testing in 48 hours Positive: Greater than 25 mIU/mL The results of this assay can be falsely lowered due to the consumption of Biotin. Blood VENOUS BLOOD / Unknown Venipuncture / Unknown 01/02/2024 8:26 EDT 01/02/2024 8:46 EDT Layla Reid MD CHEMISTRY & BLOOD GAS ORDERABLES [facility] [address] [place], [place] [phone] documented in this encounter Visit Diagnoses Diagnosis resulting from assisted reproductive technology in first trimester documented in this encounter Care Teams Finishing Tunnel Operator Relationship Specialty Start Date End Date Lisa Mcgregor FNP [address] [place] [address] [address] [place] [address] PCP - General 05/05/22 Md Alfaro MD 05/05/22 documented as of this encounter
--- OUTSIDE RECORDS SUMMARY | 2024-01-06 08:21 | XMS_ITS | Encounter Summary ---
Author Organization [facility] Address [address] [place] [address] Care Team Providers Care Nick Setter Name Role Phone BalbirLisa [facility] Primary Care Provider [phone] Md MICHAELA Alfaro Unavailable Unavailable Encounter Details Date Type Department Care Team (Late st Contact Info) Description 12/23/2023 9:00 EDT Phlebotomy Only [facility] ED Center 2 Phlebotomy [address], [place] [phone] [employer] Analyst, [facility] Phlebotomy Female infertility Social History Tobacco Use [...] Contact Info) Description 01/13/2024 13:15 EST Telemedicine [facility] Center Reproductive Medicine [facility] Inf[facility] Center - [facility] [address] [place] [address] Layla Reid MD [address] [facility] [address] [place] [id number] documented as of this encounter Procedures Procedure Name Priority Date/Time Associated Diagnosis Comments PROGESTERONE Routine 12/23/2023 9:26 EDT Female infertility ESTRADIOL, ADULTS Routine 12/23/2023 9:26 EDT Female infertility documented in this encounter Results * PROGESTERONE (12/23/2023 9:26 EDT) Progesterone 27.9 See Table ng/mL 12/23/2023 10:46 EDT [facility] Comment: Female Reference Ranges: [...] BLOO D GAS ORDERABLES Performing Organization Address [facility] [[email or web address]] Co de Phone Number [facility] [address] [place], [place] [phone] * ESTRADIOL, ADULTS (12/23/2023 9:26 EDT) Estradiol 605 See Note pg/mL 12/23/2023 10:43 EDT [facility] Comment: NOTE: FEMALE REFERENCE [...] BLOO D GAS ORDERABLES Performing Organization Address [facility] [[email or web address]] Co de Phone Number [facility] [address] [place] [address] documented in this encounter Visit Diagnoses Diagnosis Female infertility Female infertility of unspecified origin documented in this encounter Care Teams Nick Setter Relationship Specialty Start Date End Date Lisa Mcgregor FNP [address] [facility] [address] [place] [phone] PCP - General 05/05/22 Md Alfaro MD 05/05/22 documented as of this encounter
--- OUTSIDE RECORDS SUMMARY | 2024-01-06 08:21 | XMS_ITS | Encounter Summary ---
Author Organization [facility] Address [address] [place] [address] Care Team Providers Care Staffing Administrator Name Role Phone Lisa Mcgregor [facility] Primary Care Provider [phone] Md MICHAELA Alfaro Unavailable Unavailable Encounter Details Date Type Department Care Team (Late st Contact Info) Description 12/24/2023 Orders Only [facility] Reproductive Medicine & Infertility [address] [address] Aleisha Che, [place] Encounter for [...] Contact Info) Description 01/13/2024 13:15 EST Telemedicine [facility] Infertility [address] [phone] Layla Reid MD [address] [place] [address] [address] [place] [phone] documented as of this encounter Results * (ABNORMAL) QUANT BETA HCG, (12/27/2023 9:04 EDT) Beta HCG Quant, 18(H) <5 mIU/mL 12/27/2023 10:17 EDT [facility] Comment: NOTE: : [...] Reid MD CHEMISTRY & BLOOD GAS ORDERABLES [facility] [address] [place], [place] [phone] documented in this encounter Visit Diagnoses Diagnosis Encounter for in vitro fertilization- Primary Encounter for assisted reproductive fertility procedure cycle documented in this encounter Care Teams Staffing Administrator Relationship Specialty Start Date End Date Lisa Mcgregor FNP [address] [facility] [address] [place] [phone] PCP - General 05/05/22 Md Alfaro MD 05/05/22 documented as of this encounter
--- OUTSIDE RECORDS SUMMARY | 2024-01-06 08:21 | XMS_ITS | Clinical Summary ---
Author Organization [facility] Address [address] [place] [address] Care Team Providers Care Egyptologist Name Role Phone BalbirLisa [facility] Primary Care Provider [phone] Md MICHAELA Alfaro Unavailable Unavailable Allergies Active Allergy Reactions Criticality Noted Date [...] new pack immediately 56 Tablet 4 12/13/19 Discontinued ganirelix (ANTAGON) 250 mcg/0.5 mL syringe Inject 0.5 mL into the skin daily. 8 Each 4 12/10/19 Discontinued(Reo rder) Follitropin Arnoldo (GONAL-F) 1,050 unit recon soln Inject 300 Units into the skin daily. 4 Each 4 12/10/19 Discontinued(Reo rder) menotropins (MENOPUR) 75 unit solution for subcutaneous injection Inject 150 Units into the skin daily. 15 Each 4 12/09/19 24 Discontinued(Reo rder) progesterone in oil 50 mg/mL injection Inject 1 mL into the muscle daily. 3 Each 1 4 12/29/19 24 Discontinued(Reo rder) estradioL (ESTRACE) 2 mg tablet Take 1 Tablet by mouth 3 times daily. 90 Tablet 4 12/29/19 Discontinued(Reo rder) oxyCODONE (ROXICODONE) 5 mg immediate release tablet Take 1 Tablet by mouth every 4 hours as needed for up to 5 doses for Pain. Daily Max: 30 mg 5 Tablet 4 12/29/19 Discontinued Hospital, Clinic, or Other Facility Administered [...] Female infertility associated with male factors 09/17/2023 Encounters Date Type Department Care Team Description 01/04/2024 8:33 EDT - 01/04/2024 12:50 EDT Emergency [facility] Emergency Department - [address] [address] Kirby Velazquez MD Threatened (Primary Dx) Discharge Disposition: Home or Self Care 01/04/2024 Travel 01/02/2024 8:30 EDT Phlebotomy Only [facility] ED Center 2 Phlebotomy [address] [place] [address] News Camera Operator, Acc Phlebotomy resulting from assisted reproductive technology in first trimester 12/31/2023 9:00 EDT Phlebotomy Only [facility] ED Center 2 Phlebotomy [address] [place] [address] News Camera Operator, Acc Phlebotomy Encounter for in vitro fertilization 12/29/2023 9:00 EDT Phlebotomy Only [facility] ED Center 2 Phlebotomy [address] [place] [address] News Camera Operator, Acc Phlebotomy Encounter for in vitro fertilization 12/29/2023 Telephone [facility] Reproductive Medicine & Infertility [address] [address] Lucrecia Land MD Results 12/29/2023 Orders Only [facility] Reproductive Medicine & Infertility [address] [address] Aleisha Che, CHAPARRO Encounter for in vitro fertilization (Primary Dx) 12/27/2023 8:45 EDT Phlebotomy Only [facility] ED Center 2 Phlebotomy [address] [place] [address] News Camera Operator, Acc Phlebotomy Encounter for in vitro fertilization 12/27/2023 Orders Only [facility] Reproductive Medicine & Infertility [address] [address] Aleisha Che, RN Encounter for in vitro fertilization (Primary Dx) 12/24/2023 Orders Only [facility] Reproductive Medicine & Infertility [address] [address] Aleisha Che RN Encounter for in vitro fertilization (Primary Dx) 12/23/2023 9:00 EDT Phlebotomy Only [facility] ED Center 2 Phlebotomy [address] [place] [address] News Camera Operator, Acc Phlebotomy Female infertility 12/23/2023 Documentation Visit [facility] Reproductive Medicine & Infertility [address] [address] Lucrecia Land MD 12/20/2023 9:00 EDT Phlebotomy Only [facility] ED Center 2 Phlebotomy [address] [place] [address] News Camera Operator, Acc Phlebotomy Female infertility 12/20/2023 Documentation Visit [facility] Rep[facility]ductive Medicine & Infertility [address] [address] Lucrecia Land MD 12/16/2023 11:00 EDT - 12/16/2023 23:59 EDT Hospital Encounter [facility] Reproductive Medicine & Infertility [address] [address] Layla Reid MD Encounter for assisted reproductive fertility procedure cycle (Primary Dx) Discharge Disposition: Home or Self Care 12/16/2023 10:50 EDT - 12/16/2023 10:59 EDT Hospital Encounter [facility] Rep[facility]ductive Medicine & Infertility [address] [address] Encounter for assisted reproductive fertility procedure cycle Discharge Disposition: Home or Self Care 12/16/2023 9:15 EDT Phlebotomy Only [facility] ED Center 2 Phlebotomy [address] [place] [address] News Camera Operator, Acc Phlebotomy Encounter for assisted reproductive fertility cycle; Encounter for assisted reproductive fertility procedure cycle [Z31.83] 12/14/2023 Telephone [facility] Rep[facility]ductive Medicine & Infertility [address] [id number] Lucrecia Land MD Results 12/14/2023 Orders Only [facility] Rep[facility]ductive Medicine & Infertility [address] [id number] Lucrecia Land MD Female infertility (Primary Dx) 12/13/2023 8:45 EDT Anesthesia Event [facility] Medicine [facility] Infertility [address] [address] Amparo Rivera MD Pearce, Laurie Ann, CRNA 12/13/2023 7:59 EDT - 12/13/2023 23:59 EDT Hospital Encounter [facility] Rep[facility]ductive Medicine & Infertility [address] [address] Discharge Disposition: Home or Self Care 12/13/2023 7:49 EDT - 12/13/2023 7:58 EDT Hospital Encounter [facility] Rep[facility]ductive Medicine [facility] Infertility [address] [address] Layla Reid MD Encounter for assisted reproductive fertility procedure cycle [Z31.83] (Primary Dx) Discharge Disposition: Home or Self Care 12/12/2023 7:15 EDT Phlebotomy Only [facility] Center [address] [place] [id number] News Camera Operator, [facility] Phlebotomy Encounter for assisted reproductive fertility cycle; Encounter for assisted reproductive fertility procedure cycle 12/12/2023 Documentation Visit [facility] Rep[facility]ductive Medicine & Infertility [address] [address] Lucrecia Land MD 12/11/2023 9:10 EDT Procedure visit [facility] Reproductive Medicine & Infertility [address] [id number] Aurora Hinton MD Encounter for assisted reproductive fertility procedure cycle (Primary Dx) 12/11/2023 8:38 EDT - 12/11/2023 23:59 EDT Hospital Encounter [facility] O[facility] Services [address] [address] Encounter for assisted reproductive fertility cycle Discharge Disposition: Home or Self Care 12/11/2023 8:15 EDT Phlebotomy Only [facility] Center 2 Phlebotomy [address] [place] [address] [facility], [facility] Phlebotomy Encounter for assisted reproductive fertility cycle 12/10/2023 Orders Only [facility] Reproductive Medicine & Infertility [address] [address] Aleisha Che, RN 12/09/2023 8:00 EDT Procedure visit [facility] Reproductive Medicine & Infertility [address] [address] Sheila Robb MD Encounter for assisted reproductive fertility cycle (Primary Dx) 12/09/2023 7:35 EDT - 12/09/2023 23:59 EDT Hospital Encounter [address] [address] Encounter for assisted reproductive fertility cycle Discharge Disposition: Home or Self Care 12/09/2023 Orders Only [facility] Reproductive Medicine & Infertility [address] [address] Aleisha Che, CHAPARRO 12/07/2023 8:00 EDT Procedure visit [facility] Medicine & Infertility [address] [address] Aurora Hinton MD Encounter for assisted reproductive fertility cycle (Primary Dx) 12/07/2023 7:25 EDT - 12/07/2023 23:59 EDT Hospital Encounter [address] [address] Encounter for assisted reproductive fertility cycle Discharge Disposition: Home or Self Care 12/07/2023 Orders Only [facility] Reproductive Medicine & Infertility [address] [address] Aleisha Che, CHAPARRO 12/05/2023 9:30 EDT Procedure visit [facility] Reproductive Medicine & Infertility [address] [address] Cheryl Fuller MD Encounter for assisted reproductive fertility cycle (Primary Dx) 12/05/2023 8:34 EDT - 12/05/2023 23:59 EDT Hospital Encounter [facility] [address] [address] Encounter for assisted reproductive fertility cycle Discharge Disposition: Home or Self Care 12/05/2023 7:45 EDT Phlebotomy Only [facility] ED Center 2 Phlebotomy [address] [place] [address] News Camera Operator, Acc Phlebotomy Encounter for assisted reproductive fertility procedure cycle; Encounter for assisted reproductive fertility cycle 12/03/2023 8:45 EDT Phlebotomy Only [facility] ED Center 2 Phlebotomy [address] [place] [address] News Camera Operator, Acc Phlebotomy Encounter for assisted reproductive fertility procedure cycle 12/03/2023 Documentation Visit [facility] Reproductive Medicine & Infertility [facility] [address] [place] [address] Lucrecia Land MD 12/01/2023 8:45 EDT Phlebotomy Only [facility] ED Center 2 Phlebotomy [address] [place] [address] News Camera Operator, Acc Phlebotomy Encounter for assisted reproductive fertility procedure cycle 12/01/2023 Documentation Visit [facility] Reproductive Medicine & Infertility [facility] [address] [place] [address] Lucrecia Land MD 11/29/2023 8:45 EDT Phlebotomy Only [facility] ED Center 2 Phlebotomy [address] [place] [address] News Camera Operator, Acc Phlebotomy Encounter for assisted reproductive fertility procedure cycle 11/29/2023 Telephone [facility] Reproductive Medicine & Infertility [address] [address] Olena Tucker RN Coordination Of Care 11/29/2023 Documentation Visit [facility] Rep[facility]ductive Medicine & Infertility [address] [address] Lucrecia Land MD 11/26/2023 8:45 EDT Phlebotomy Only [facility] ED Center 2 Phlebotomy [address] [place], [place] [address] News Camera Operator, [facility] Phlebotomy Encounter for assisted reproductive fertility procedure cycle 11/26/2023 8:00 EDT Procedure visit [facility] Reproductive Medicine & Infertility [facility] [address] [place], [place] [address] Sheila Robb MD Encounter for assisted reproductive fertility procedure cycle (Primary Dx) 11/26/2023 7:25 EDT - 11/26/2023 23:59 EDT Hospital Encounter [facility] [address] [address] Encounter for assisted reproductive fertility cycle Discharge Disposition: Home or Self Care 11/02/2023 Orders Only [facility] Reproductive Medicine & Infertility [facility] [address] [place] [address] Aleisha Che, CHAPARRO from Last 3 Months Surgical History Surgery Date Site/Laterality Comments WISDOM TOOTH EXTRACTION Medical History Medical History Date Comments Acne vulgaris Family History Medical History Relation Comments Diabetes Mother Breast Cancer Paternal Grandmother diagnosed i n 50s or 60s Relation Status Comments Mother Paternal Grandmother Social History Tobacco Use Types Packs/Day Years [...] Sexual Orientation Straight 09/07/2023 13 :39 EDT Obstetrics History Para Term AB IAB SAB Ectopic Multiple Livin g Live Births 1 1 1 1 Date Outcome GA Total Labor Labor/2nd/3rd Weight Sex Type Anes PTL Nancy A1 A5 Name Clin 2014 Term Vag-Spo nt Last Filed Vital Signs Vital Sign Reading [...] Contact Info) Description 01/13/2024 13:15 EST Telemedicine [facility] Reproductive Medicine & Infertility Center - [address] [address] Layla Reid MD [address] [facility], [address] [place] [address] Health Maintenance Due Date Last Done Comments Hepatitis B Vaccine (1 of 3 - 19+ 3-dose series) 05/23 COVID-19 Vaccine ( season) 2023 Hepatitis C Screen Completed 09/06/2023 Procedures Procedure Name Priority Date/Time Associated Diagnosis [...] Encounter for assisted reproductive fertility cycle US JEWELRY BEARING MAKER EXAM (KIANNA ONLY) Routine 12/11/2023 9:36 EDT Encounter for assisted reproductive fertility cycle ESTRADIOL, ADULTS Routine 12/11/2023 8:1 2 EDT Encounter for assisted reproductive fertility cycle PROGESTERONE Routine 12/11/2023 8:12 EDT Encounter for assisted reproductive fertility cycle US JEWELRY BEARING MAKER EXAM (KIANNA ONLY) Routine 12/09/2023 7:43 EDT Encounter for assisted reproductive fertility cycle ESTRADIOL, ADULTS Routine 12/07/2023 8:0 7 EDT Encounter for assisted reproductive fertility cycle PROGESTERONE Routine 12/07/2023 8:07 EDT Encounter for assisted reproductive fertility cycle US JEWELRY BEARING MAKER EXAM (KIANNA ONLY) Routine 12/07/2023 7:30 EDT Encounter for assisted reproductive fertility cycle US JEWELRY BEARING MAKER EXAM (KIANNA ONLY) Routine 12/05/2023 8:52 EDT [...] 3 days Prior ultrasound dating: Not available. [place]-rump length: No pole is identified. IMPRESSION: of unknown location. Differential considerations include non- visualized early intrauterine , non-visualized ectopic , and completed early loss. Follow-up with serial HCG, obstetric ultrasound, and ARMHOLE SEWER consultation is suggested. Reference: Mandi Falcon, et al. A lexicon for first-trimester US: Society of Radiologists in Ultrasound Consensus Conference recommendations. Radiology 312.2 (2023): [id number]. [id number] Narrative 01/04/2024 10:34 EDT US OB FIRST TRIMESTER (LESS THAN 14 WEEKS) TA AND TV AND LTD DUPLEX ??01/04/2024 9:45 AM SIGNS AND SYMPTOMS/COMMENTS: ??spotting, abnormal HCG COMPARISON: Pelvic ultrasound on 12/16/2023 DUPLEX: Indication for Duplex: Concern for ovarian torsion and/or mass Technique: Color and spectral Doppler ultrasound of the pelvis was performed. Resulting Agency Comment [id number] Procedure Note Romeo Salinas MD - 01/04/2024 US OB FIRST TRIMESTER (LESS THAN 14 WEEKS) TA AND TV AND LTD [id number]/04/2024 9:45 AM SIGNS AND SYMPTOMS/COMMENTS: spotting, abnormal [...] 3 days Prior ultrasound dating: Not available. [place]-rump length: No pole is identified. IMPRESSION: of unknown location. Differential considerations includenon-visualized early intrauterine , non-visualized ectopicpregnancy, and completed early loss. Follow-up with serial HCG,obstetric ultrasound, and ARMHOLE SEWER consultation is suggested. Reference: Mandi Falcon, et al. A lexicon for first-trimester US:Society of Radiologists in Ultrasound Consensus Conferencerecommendations. Radiology 312.2 (2023): [id number]. [id number] Kirby Velazquez MD IMG US OB ORDERABLE S * HOLD LAVENDER TOP (01/04/2024 9:30 EDT) Hold Hold 01/04/2024 10:45 EDT [facility] Blood VENOUS BLOOD / Unknown Venipuncture / Unknown 01/04/2024 9:30 EDT 01/04/2024 9:33 EDT Kirby Velazquez MD LAB INFO SERVICE AN D SUPPORT & PHONE RESULT Performing Organization Address [facility]/ZIP Co de Phone Number [facility] [address] [place] [address] * HOLD GREEN TOP (01/04/2024 9:30 EDT) Hold Hold 01/04/2024 10:45 EDT [facility] Blood VENOUS BLOOD / Unknown Venipuncture / Unknown 01/04/2024 9:30 EDT 01/04/2024 9:33 EDT Kirby Velazquez MD LAB INFO SERVICE AN D SUPPORT & PHONE RESULT [facility] [address] [place] [address] * HOLD BLUE TOP (01/04/2024 9:30 EDT) [facility] Hold Hold 01/04/2024 10:45 EDT [facility] Blood VENOUS BLOOD / Unknown Venipuncture / Unknown 01/04/2024 9:30 EDT 01/04/2024 9:34 EDT Kirby Velazquez MD LAB INFO SERVICE AN D SUPPORT & PHONE RESULT Performing Organization Address [facility] Co de Phone Number [facility] [address] [place] [address] * (ABNORMAL) QUANT BETA HCG, (01/04/2024 9:30 EDT) Only the most recent of6 resultswithin the time period is included. [facility] Beta HCG Quant, 80(H) <5 mIU/mL 01/04/2024 10:11 EDT [facility] Comment: NOTE: : Negative: Less [...] & BLOOD G ORDERABLES Performing Organization Address [facility] Co de Phone Number [facility] [address] [place] [address] * PROGESTERONE (12/23/2023 9:26 EDT) Only the most recent of8 resultswithin the time period is included. [facility] Progesterone 27.9 See Table ng/mL 12/23/2023 10:46 EDT [facility] Comment: Female Reference Ranges: PHYSIOLOGICAL [...] MD CHEMISTRY & BLOO D GAS ORDERABLES [facility] [address] [place] [address] * ESTRADIOL, ADULTS (12/23/2023 9:26 EDT) Only the most recent of11 resultswithin the time period is included. Estradiol 605 See Note pg/mL 12/23/2023 10:43 EDT [facility] Comment: NOTE: FEMALE REFERENCE RANGES: [...] MD CHEMISTRY & BLOO D GAS ORDERABLES [facility] [address] [place] [address] * POC IVF/KIANNA US GUIDANCE (12/16/2023 10:50 EDT) Narrative 12/16/2023 10:50 EDT This is a non-reportable exam. Layla Reid MD [facility] US POC ORDERA BLES * POC IVF/KIANNA US GUIDANCE (12/13/2023 7:59 EDT) Narrative 12/13/2023 7:59 EDT This is a non-reportable exam. Layla Reid MD [facility] US POC ORDERA BLES * LH (12/12/2023 7:25 EDT) Luteinizing Hormone 10.5 See Note mIU/mL 12/12/2023 9:39 EDT [facility] Comment: NOTE: Female Reference Ranges: [...] MD CHEMISTRY & BLOOD GA S ORDERABLES [facility] [address] [place] [address] * US JEWELRY BEARING MAKER EXAM (KIANNA ONLY) (12/11/2023 9:36 EDT) Anatomical [...] mild Impression ========= USE (IVF Follicular) - 98266 1. Uterus appears normal with trilaminar endometrium. [...] mild Impression ========= USE (IVF Follicular) - 98142 1. Uterus appears normal with trilaminar endometrium. 2. Ovarian follicles appear to be in late folliculogenesis. 3. Small amount of fluid in the cul de sac. Follow-up ======== Labs today, plan per ART team. Comment ======== N97.8 female infertility, other DATE OF SERVICE: 12/11/2023 Lucrecia Land MD IMG US OB ORDERA BLES * US JEWELRY BEARING MAKER EXAM (KIANNA ONLY) (12/09/2023 7:43 EDT) Anatomical [...] fluid Impression ========= USE (IVF Follicular) - 31612 1. Anteverted uterus with trilaminar endometrium 2. [...] fluid Impression ========= USE (IVF Follicular) - 61939 1. Anteverted uterus with trilaminar endometrium 2. Stimulated ovaries bilaterally with folliculogenesis as measuredabove 3. No significant free fluid Follow-up ======== Labs today, plan per KIANNA team Comment ======== Ultrasound findings discussed w/patient. Z31.83 encounter for assisted reproductive fertility procedure cycle DATE OF SERVICE: 12/09/2023 Lucrecia Land MD IMG US OB ORDERA BLES * US JEWELRY BEARING MAKER EXAM (KIANNA ONLY) (12/07/2023 7:30 EDT) Anatomical [...] trace Impression ========= USE (IVF Follicular) - 14353 1. Anteverted uterus with trilaminar endometrium 2. [...] trace Impression ========= USE (IVF Follicular) - 86082 1. Anteverted uterus with trilaminar endometrium 2. Early folliculogenesis as measured above 3. No significant free fluid Follow-up ======== Labs today, plan per KIANNA team Comment ======== Z31.83 encounter for assisted reproductive fertility procedure cycle Ultrasound findings discussed w/patient. DATE OF SERVICE: 12/07/2023 Lucrecia Land MD IMG US OB ORDERA BLES * US JEWELRY BEARING MAKER EXAM (KIANNA ONLY) (12/05/2023 8:52 EDT) Anatomical [...] cycle DATE OF SERVICE: 12/05/2023 Procedure Note Chreyl Fuller MD - 12/05/2023 Indication ======== IVF [...] #1 baseline GN 2 Uterus ====== Uterus: ?Appears normal Myometrium: ?Mild adenomyosis Endometrium: ?? Thin endometrium Endometrial thickness, total ?? 4.3 mm Right Ovary ========= Rt ovary: ??Visualized, normal appearance Rt ovary other findings: ?? afc 10 Left Ovary ======== Lt ovary: ??Visualized, normal appearance Lt ovary other findings: ?? afc 6 Cul de Sac ========= No free fluid visualized Impression ========= Baseline - 40594 with mock as above Follow-up ======== per [...] free fluid visualized Impression ========= Baseline - 63141 with mock as above Follow-up ======== per IKANNA Comment ======== Mock CX 3 Fund 7 transf 6 Z31.83 encounter for assisted reproductive fertility procedure cycle DATE OF SERVICE: 11/26/2023 Lucrecia Land MD IMG US OB ORDERA BLES * HEPATITIS C AB W REFLEX TO HCV RNA BY PCR (09/06/2023 10:26 EDT) Hep C Antibody Negative Negative 09/06/2023 12:56 EDT [facility] Blood VENOUS BLOOD / Unknown Venipuncture / Unknown 09/06/2023 10:26 EDT 09/06/2023 10:50 EDT Elizabeth Ingram DO CHEMISTRY & BLOOD G ORDERABLES [facility] [address] [place] [address] from Last 3 Months or Most Recently Relevant to Health Maintenance Care Teams Egyptologist Relationship Specialty Start Date End Date Lisa Mcgregor FNP [address] [place] [address] [address] [place] [address] PCP - General 05/05/22 Md Aflaro MD 05/05/22
--- OUTSIDE RECORDS SUMMARY | 2024-01-06 08:22 | XMS_ITS | Encounter Summary ---
Author Organization [facility] Address [address] [place] [address] Care Team Providers Care Stretching Machine Operator Name Role Phone BalbirRaniy [facility] Primary Care Provider [phone] Md MICHAELA Alfaro Unavailable Unavailable Reason for Visit * Reason Onset Date Comments Coordination Of Care 11/29/2023 Encounter Details Date Type Department Care Team (Late st Contact Info) Description 11/29/2023 Telephone [facility] - [facility] [address] [place] [address] Olena Tucker RN [address] [place] [address] Coordination Of Care Social History Tobacco Use Types Packs/Day [...] encounter Miscellaneous Notes * Telephone Encounter - Olena Tucker RN - 11/29/2023 8153 EDT Tiny called back. Reviewed that she has been taking her medications correctly (75 units of Menopur and 150 units of Gonal-F). Plan to increase to 225 of Gonal-F and continue 75 of Menopur. Repeatlab Wednesday. Pt verbalized understanding of plan. * Telephone Encounter - Olena Tucker RN - 11/29/2023 1321 EDT Left message asking Tiny to call back. Need to confirm proper medication administration. documented in this encounter Plan of Treatment Upcoming Encounters Date Type Department Care Team (Late st Contact Info) Description 01/13/2024 13:15 EST Telemedicine [facility] - [address] [address] Layla Reid MD [address] [facility], [address] [place] [phone] documented as of this encounter Visit Diagnoses Not on filedocumented in this encounter Care Teams Stretching Machine Operator Relationship Specialty Start Date End Date Lisa Mcgregor FNP [address] [facility] [place] [address] [place] [address] PCP - General 05/05/22 Md Alfaro MD 05/05/22 documented as of this encounter
--- OUTSIDE RECORDS SUMMARY | 2024-01-06 08:22 | XMS_ITS | Encounter Summary ---
Author Organization [facility] Address [address] [place] [address] Care Team Providers Care Orchid Transplanter Name Role Phone Lisa Mcgregor [facility] Primary Care Provider [phone] Md MICHAELA Alfaro Unavailable Unavailable Encounter Details Date Type Department Care Team (Late st Contact Info) Description 12/10/2023 Orders Only [facility] Reproductive Medicine & Infertility Center - [facility] [address] [place] [address] Aleisha Che RN Social History Tobacco Use Types Packs/Day Years [...] :39 EDT documented as of this encounter Ordered Prescriptions Prescription Sig Dispensed Refills Start Date End Da te ganirelix (ANTAGON) 250 mcg/0.5 mL syringe Inject 0.5 mL into the skin daily. 2 Each 12/10/2023 Follitropin Arnoldo (GONAL-F) 1,050 unit recon soln Inject 300 Units into the skin daily. 1 Each 12/10/2023 documented in this encounter Plan of Treatment Upcoming Encounters Date Type Department Care Team (Late st Contact Info) Description 01/13/2024 13:15 EST Telemedicine [facility] Reproductive Medicine & Infertility Center - [facility] [address] [place], [place] [address] Layla Reid MD 111 [facility], Level 4 [place] [phone] documented as of this encounter Visit Diagnoses Not on filedocumented in this encounter Discontinued Medications Medication Sig Discontinue Reason Start Date End Da te ganirelix (ANTAGON) 250 mcg/0.5 mL syringe Inject 0.5 mL into the skin daily. Reorder 11/02/2023 12/10/2023 Follitropin Arnoldo (GONAL-F) 1,050 unit recon soln Inject 300 Units into the skin daily. Reorder 11/02/2023 12/10/2023 documented as of this encounter Care Teams Orchid Transplanter Relationship Specialty Start Date End Date Lisa Mcgregor FNP [address] [place] [address] [address] [place] [phone] PCP - General 05/05/22 Md Alfaro MD 05/05/22 documented as of this encounter
--- OUTSIDE RECORDS SUMMARY | 2024-01-06 08:22 | XMS_ITS | Encounter Summary ---
Author Organization [facility] Address [address] [place] [address] Care Team Providers Care Copy Editor Name Role Phone Lisa Mcgregor [facility] Primary Care Provider [phone] Md MICHAELA Alfaro Unavailable Unavailable Encounter Details Date Type Department Care Team (Late st Contact Info) Description 12/14/2023 Orders Only [facility] Reproductive Medicine & Infertility Center - [facility] [address] [place] [address] Lucrecia Land MD 111 [facility], [address] 4 [place] [phone] Female infertility (Primary Dx) Social History Tobacco Use Types [...] Dispensed Refills Start Date End Da te oxyCODONE (ROXICODONE) 5 mg immediate release tablet Take 1 Tablet by mouth every 4 hours as needed for up to 5 doses for Pain. Daily Max: 30 mg 5 Tablet 12/14/2023 12/29/2023 documented in this encounter Progress Notes * Lucrecia Land MD - 12/14/2023 0905 EDT Rx sent for pain medication given 10/15 pain after oocyte retrieval yesterday. Lucrecia Land MD Reproductive Endocrinology and Infertility Fellow (PGY7) [facility] documented in this encounter Plan of Treatment Upcoming Encounters Date Type Department Care Team (Late st Contact Info) Description 01/13/2024 13:15 EST Telemedicine [facility] Reproductive Medicine & Infertility Center - [address] [address] Layla Reid MD [address] [place] [address], [address] [place] [address] documented as of this encounter Results * PROGESTERONE (12/20/2023 9:33 EDT) [facility] Signature Progesterone 58.6 See Table ng/mL 12/20/2023 13:18 EDT [facility] Comment: Female Reference Ranges: PHYSIOLOGICAL [...] Reid MD CHEMISTRY & BLOOD GAS ORDERABLES [facility] [address] [place] [address] * ESTRADIOL, ADULTS (12/20/2023 9:33 EDT) Estradiol 188 See Note pg/mL 12/20/2023 11:11 EDT [facility] Comment: NOTE: FEMALE REFERENCE RANGES: [...] & BLOOD GAS ORDERABLES Performing Organization Address [facility] de Phone Number [facility] [address] [place] [address] * QUANT BETA HCG, (12/20/2023 9:33 EDT) Beta HCG Quant, <5 <5 mIU/mL 12/20/2023 10:38 EDT [facility] Comment: NOTE: : Negative: Less [...] & BLOOD GAS ORDERABLES Performing Organization Address [facility] Co de Phone Number [facility] [address] [place] [address] documented in this encounter Visit Diagnoses Diagnosis Female infertility- Primary Female infertility of unspecified origin documented in this encounter Care Teams Copy Editor Relationship Specialty Start Date End Date Lisa Mcgregor FNP [address] [place] [phone] PCP - General 05/05/22 Md Alfaro MD 05/05/22 documented as of this encounter
--- OUTSIDE RECORDS SUMMARY | 2024-01-06 08:22 | XMS_ITS | Encounter Summary ---
Author Organization [facility] Address [address] [place] [address] Care Team Providers Care Industrial Twisting Machine Operator Name Role Phone Lisa Mcgregor [facility] Primary Care Provider [phone] Md MICHAELA Alfaro Unavailable Unavailable Encounter Details Date Type Department Care Team (Late st Contact Info) Description 12/01/2023 Documentation Visit [facility] Reproductive Medicine & Infertility Center - [address] [address] Lucrecia Land MD 111 [facility], [address] [place] [phone] Social History Tobacco Use Types Packs/Day Years [...] Progress Notes * Lucrecia Land MD - 12/01/2023 0958 EDT IVF Plan Note Cycle type: Antag, ICSI (TESE sample) Med day 6 Tiny uJarez's labs and IVF plan reviewed with attending Dr. Reid. 11/26/2023 11/29/2023 12/01/2023 IVF FLOWSHEET (USE FORM) Medications: RX Day Baseline 4 6 Medications: RX Date 11/26/2023 11/29/2023 12/01/2023 Medications: Use RX HMG Start 1 1 Medications: Use RX FSH 2 3 Labs: E2 13 31 124 Please contact the patient with the following plan: Continue Gonal F 225u and Menopur 75u Repeat labs only in 2 days Lucrecia Land MD Reproductive Endocrinology and Infertility Fellow (PGY7) [facility] documented in this encounter Plan of Treatment Upcoming Encounters Date Type Department Care Team (Late st Contact Info) Description 01/13/2024 13:15 EST Telemedicine [facility] Reproductive Medicine & Infertility Center - [address] [address] Layla Reid MD 111 [facility], [address] [place] [phone] documented as of this encounter Visit Diagnoses Not on filedocumented in this encounter Care Teams Industrial Twisting Machine Operator Relationship Specialty Start Date End Date Lisa Mcgregor FNP [address] [place] [phone] PCP - General 05/05/22 Md Alfaro MD 05/05/22 documented as of this encounter
--- OUTSIDE RECORDS SUMMARY | 2024-01-06 08:22 | XMS_ITS | Encounter Summary ---
Author Organization [facility] Address [address] [place] [address] Care Team Providers Care Client Services Specialist Name Role Phone BalbirLisa [facility] Primary Care Provider [phone] Md MICHAELA Alfaro Unavailable Unavailable Encounter Details Date Type Department Care Team (Late st Contact Info) Description 09/06/2023 9:15 EDT Phlebotomy Only [facility] ED Center 2 Phlebotomy [address] [place] [address] Geographic Analyst, [facility] Phlebotomy Fertility testing; Female infertility; Encounter for preconception consultation; Routine screening for STI (sexually transmitted infection) Social History Tobacco Use Types Packs/Day Years [...] Contact Info) Description 01/13/2024 13:15 EST Telemedicine [facility] Reproductive Medicine & Infertility Center - [facility] [address] [place] [address] Layla Reid MD 111 [facility] 4 [place] [phone] documented as of this encounter Procedures Procedure Name Priority Date/Time Associated Diagnosis Comments ANTIMULLERIAN HORMONE, S Routine 09/06/2023 10:26 EDT Fertility testing Female infertility PROFILE IVF NON DONOR Routine 09/06/2023 10:26 EDT Fertility testing Female infertility Routine screening for STI (sexually transmitted infection) Encounter for preconception consultation SYPHILIS SEROLOGY Routine 09/06/2023 10: 26 EDT Fertility testing Female infertility Routine screening for STI (sexually transmitted infection) Encounter for preconception consultation VITAMIN D (25,OH) Routine 09/06/2023 10: 26 EDT Fertility testing Female infertility Encounter for preconception consultation HEPATITIS C AB W REFLEX TO HCV RNA BY PCR Routine 09/06/2023 10:26 EDT Fertility testing Female infertility Routine screening for STI (sexually transmitted infection) Encounter for preconception consultation HEPATITIS B CORE ANTIBODY (TOTAL) Routine 09/06/2023 10:26 EDT Fertility testing Female infertility Routine screening for STI (sexually transmitted infection) Encounter for preconception consultation HEPATITIS B SURFACE ANTIGEN Routine 09/06/2023 10:26 EDT Fertility testing Female infertility Routine screening for STI (sexually transmitted infection) Encounter for preconception consultation HIV 1/2 ANTIGEN AND ANTIBODY, 4TH GENERATION Routine 09/06/2023 10:26 EDT Fertility testing Female infertility Routine screening for STI (sexually transmitted infection) Encounter for preconception consultation TSH Routine 09/06/2023 10:26 EDT Fertility testing Female infertility CHLAMYDIA/N. GONORRHOEAE AMPLIFIED NUCLEIC ACID Routine 09/06/2023 9:47 EDT Fertility testing Female infertility Encounter for preconception consultation documented in this encounter Results * HEPATITIS C AB W REFLEX TO HCV RNA BY PCR (09/06/2023 10:26 EDT) Hep C Antibody Negative Negative 09/06/2023 12:[address] [facility] Blood VENOUS BLOOD / Unknown Venipuncture / Unknown 09/06/2023 10:26 EDT 09/06/2023 10:50 EDT Elizabeth B Juan Jose DO CHEMISTRY & BLOOD G ORDERABLES [facility] [address] [place] [address] * SYPHILIS SEROLOGY (09/06/2023 10:26 EDT) Pathologist [facility] Syphilis Serology Negative Negative 09/06/2023 15:[address] [facility] Blood VENOUS BLOOD / Unknown Venipuncture / Unknown 09/06/2023 10:26 EDT 09/06/2023 10:50 EDT Elizabeth Newellbit DO IMMUNOLOGY AND SERO LOGY ORDERABLES Performing Organization Address City/[facility]/ZIP Co de Phone Number [facility] [address] [place] [address] * HEPATITIS B SURFACE ANTIGEN (09/06/2023 10:26 EDT) Pathologist [facility] Hep B Surface Ag Negative Negative 09/06/2023 12:[address] [facility] Blood VENOUS BLOOD / Unknown Venipuncture / Unknown 09/06/2023 10:26 EDT 09/06/2023 10:50 EDT Elizabeth B Juan Jose DO CHEMISTRY & BLOOD G ORDERABLES Performing Organization Address City/[facility]/ZIP Co de Phone Number [facility] [address] [place] [address] * HEPATITIS B CORE ANTIBODY (TOTAL) (09/06/2023 10:26 EDT) Pathologist [facility] Hepatitis B Core Ab, Total Negative Negative 09/06/2023 13:[address] [facility] Blood VENOUS BLOOD / Unknown Venipuncture / Unknown 09/06/2023 10:26 EDT 09/06/2023 10:50 EDT Elizabeth Ingram DO CHEMISTRY & BLOOD G ORDERABLES Performing Organization Address [facility] Co de Phone Number [facility] [address] [place] [address] * HIV 1/2 ANTIGEN AND ANTIBODY, 4TH GENERATION (09/06/2023 10:26 EDT) [facility] HIV 1 and 2 Antibody/p24 Antigen, 4th Generation Negative Negative 09/06/2023 13:[address] [facility] Comment:If acute HIV-1 infec tion is suspected in a high risk patient, submit plasma specimen for HIV-1 RNA quantitation test. Blood VENOUS BLOOD / Unknown Venipuncture / Unknown 09/06/2023 10:26 EDT 09/06/2023 10:[address] [facility] - 09/06/2023 13:35 EDT Fourth Generation assay performed on the Siemens [employer] XPT. Elizabeth Ingram DO IMMUNOLOGY AND SERO LOGY ORDERABLES Performing Organization Address City/[facility] Co de Phone Number [facility] [address] [place] [phone] * TSH (09/06/2023 10:26 EDT) [facility] TSH 2.47 0.47 - 4.68 mIU/L 09/06/2023 11:[address] [facility] Blood VENOUS BLOOD / Unknown Venipuncture / Unknown 09/06/2023 10:26 EDT 09/06/2023 10:[address] [facility] - 09/06/2023 11:56 EDT The results of this assay can be falsely lowered due to the consumption of Biotin. Elizabeth Ingram DO CHEMISTRY & BLOOD G ORDERABLES Performing Organization Address [facility] Co de Phone Number [facility] [address] [place] [address] * ANTIMULLERIAN HORMONE, S (09/06/2023 10:26 EDT) Pathologist [facility] Antimullerian Hormone, S 5.8 0.58 - 8.1 ng/mL 09/08/2023 10:01 EDT [facility] Comment: ADDITIONAL INFORMATION The testing method is an electrochemiluminescence assay manufactured by [employer] and performed on the Papo system. Values obtained with different assay methods or kits may be different and cannot be used interchangeably. This test has been modified from the manufacturers instructions. Its performance characteristics were determined by [facility] in a manner consistent with CLIA requirements. This test has not been cleared or approved by the U.S. Food and Drug Administration. Test Performed by: [facility] - [address] [address] Floor Coverer: Anthony Mccoy Ph.D.; CLIA# [id number] Blood VENOUS BLOOD / Unknown Venipuncture / Unknown 09/06/2023 10:26 EDT 09/06/2023 10:50 EDT Elizabeth Ingram DO HEMATOLOGY & PF4 OR DERABLES Performing Organization Address City/[facility]/ZIP Co de Phone Number [facility] [address] [place] [address] * VITAMIN D (25,OH) (09/06/2023 10:26 EDT) Pathologist [facility] 25OH Vitamin D Tot 55 30 - 100 ng/mL 09/06/2023 15:[address] [facility] Comment: Vitamin D 25,OH Interpretive Ranges: Deficiency: ??<10.0 ng/mL Insufficiency: ??10.0 - 30.0 ng/mL Sufficiency: ??30.0 - 100.0 ng/mL Toxicity: ??>100.0 ng/mL Blood VENOUS BLOOD / Unknown Venipuncture / Unknown 09/06/2023 10:26 EDT 09/06/2023 10:50 EDT Elizabeth Ingram DO CHEMISTRY & BLOOD G ORDERABLES Performing Organization Address [facility] Co de Phone Number [facility] [address] [place] [address] * CHLAMYDIA/N. GONORRHOEAE AMPLIFIED RNA (09/06/2023 9:47 EDT) Neisseria gonorrhoeae Result Negative Negative 09/07/2023 12:[address] [facility] Chlamydia trachomatis Result Negative Negative 09/07/2023 12:[address] [facility] Urine URINE / Unknown Urine Collect / Unknown 09/06/2023 9:47 EDT 09/06/2023 10:[address] [facility] - 09/07/2023 12:26 EDT A first catch urine specimen is acceptable for detection of Gonorrhea and Chlamydia, but might detect up to 10% fewer infections when compared with vaginal swab samples. Elizabeth Ignram DO MICROBIOLOGY - GENE RAL ORDERABLES Performing Organization Address [facility] Co de Phone Number [facility] [address] [place] [address] documented in this encounter Visit Diagnoses Diagnosis Fertility testing Female infertility Female infertility of unspecified origin Encounter for preconception consultation Other procreative management counseling and advice Routine screening for STI (sexually transmitted infection) Screening examination for venereal disease documented in this encounter Care Teams Client Services Specialist Relationship Specialty Start Date End Date Lisa Mcgregor FNP [address] [place] [address] [place] [phone] PCP - General 05/05/22 Md Alfaro MD 05/05/22 documented as of this encounter
--- OUTSIDE RECORDS SUMMARY | 2024-01-06 08:22 | XMS_ITS | Encounter Summary ---
Author Organization [facility] Address [address] [place] [address] Care Team Providers Care Recovery Advocate Name Role Phone BalbirLisa [facility] Primary Care Provider [phone] Md MICHAELA Alfaro Unavailable Unavailable Encounter Details Date Type Department Care Team (Late st Contact Info) Description 11/02/2023 Orders Only [facility] Reproductive Medicine & Infertility Center - [facility] [address] [place] [address] Aleisha Che RN Social History Tobacco Use [...] Dispensed Refills Start Date End Da te chorionic gonadotropin, human (PREGNYL) 10,000 unit injection Injected 1 mL into the skin once when directed. 1 Each 11/02/2023 progesterone in oil 50 mg/mL injection Inject 1 mL into the muscle daily. 3 Each 1 11/02/2023 12/29/2023 menotropins (MENOPUR) 75 unit solution for subcutaneous injection Inject 150 Units into the skin daily. 15 Each 11/02/2023 12/09/2023 Follitropin Arnoldo (GONAL-F) 1,050 unit recon soln Inject 300 Units into the skin daily. 4 Each 11/02/2023 12/10/2023 ganirelix (ANTAGON) 250 mcg/0.5 mL syringe Inject 0.5 mL into the skin daily. 8 Each 11/02/2023 12/10/2023 documented in this encounter Plan of Treatment Upcoming Encounters Date Type Department Care Team (Late st Contact Info) Description 01/13/2024 13:15 EST Telemedicine [facility] Reproductive Medicine & Infertility Center [address] [address] Layla Reid MD [address] [place] [address], [address] [place] [phone] documented as of this encounter Visit Diagnoses Not on filedocumented in this encounter Care Teams Recovery Advocate Relationship Specialty Start Date End Date Lisa Mcgregor FNP [address] [place] [address] [address] [place] [phone] PCP - General 05/05/22 Md Alfaro MD 05/05/22 documented as of this encounter
--- OUTSIDE RECORDS SUMMARY | 2024-01-06 08:22 | XMS_ITS | Encounter Summary ---
Author Organization [facility] Address [address] [place] [address] Care Team Providers Care Landscape Drafter Name Role Phone Lisa Mcgregor [facility] Primary Care Provider [phone] Md MICHAELA Alfaro Unavailable Unavailable Reason for Referral * RAMP AND CARGO SUPERVISOR (Routine/Next Available) - Authorization Not Required Specialty Diagnoses / Procedures Referred By Jalil quiñones Referred To Contact Diagnoses Encounter for assisted reproductive fertility cycle Procedures US SUPERVISOR BROODER FARM EXAM (KIANNA ONLY) Lucrecia Land MD [address] [address] Referral ID Status Reason Start Date Expiration Date Visits Requested Visits Authorized [id number] Authorization Not Required 11/01/2023 4 4 Reason for Visit * RAMP AND CARGO SUPERVISOR (Routine/Next Available) - Authorization Not Required Specialty Diagnoses / Procedures Referred By Jalil quiñones Referred To Contact Diagnoses Encounter for assisted reproductive fertility cycle Procedures US SUPERVISOR BROODER FARM EXAM (KIANNA ONLY) Lucrecia Land MD [address] [phone] Referral ID Status Reason Start Date Expiration Date Visits Requested Visits Authorized [id number] Authorization Not Required 11/01/2023 4 4 Encounter Details Date Type Department Care Team (Latest Contact Info) Description 12/09/2023 7:35 EDT - 12/09/2023 23:59 EDT Hospital Encounter [facility] - [address] [address] Encounter for assisted reproductive fertility cycle Discharge [...] skin once when directed. 1 Each 11/02/2023 leuprolide (LUPRON) 1 mg/0.2 mL kit Inject 80 units into the skin 12 hours apart when direct. BILL TO IVF CLINIC PLAN, GLOBAL. 1 Each 12/07/2023 menotropins (MENOPUR) 75 unit solution for subcutaneous injection Inject 150 Units into the skin daily. 5 Each 12/09/2023 25/iron fum/folic/dha (-1 ORAL) Take by mouth daily. Follitropin Arnoldo (GONAL-F) 1,050 unit recon soln Inject 300 Units into the skin daily. 4 Each 11/02/2023 12/10/2023 ganirelix (ANTAGON) 250 mcg/0.5 mL syringe Inject 0.5 mL into the skin daily. 8 Each 11/02/2023 12/10/2023 norgestimate-ethinyl estradioL (ORTHO-CYCLEN) 0.25-35 mg-mcg per tablet Take 1 Tablet by mouth daily. Take active tabs continuously. Discard inactive tabs (4th row of pills) and begin new pack immediately 56 Tablet 10/22/2023 12/13/2023 progesterone in oil 50 mg/mL injection Inject 1 mL into the muscle daily. 3 Each 1 11/02/2023 12/29/2023 documented as of this encounter Discharge Disposition Disposition Code Departure Means Destination Home or Self Care documented in this encounter Plan of Treatment Upcoming Encounters Date Type Department Care Team (Late st Contact Info) Description 01/13/2024 13:15 EST Telemedicine [facility] Reproductive Medicine & Infertility Center - [address] [address] Layla Reid MD [address] [place] [address], [facility] [address] [place] [phone] documented as of this encounter Procedures Procedure Name Priority Date/Time Associated Diagnosis Comments US SUPERVISOR BROODER FARM EXAM (KIANNA ONLY) Routine 12/09/2023 7:43 EDT Encounter for assisted reproductive fertility cycle documented in this encounter Results * US SUPERVISOR BROODER FARM EXAM (KIANNA ONLY) (12/09/2023 7:43 EDT) Anatomical [...] fluid Impression ========= USE (IVF Follicular) - 45803 1. Anteverted uterus with trilaminar endometrium 2. Stimulated ovaries bilaterally with folliculogenesis as measured above 3. No significant free fluid Follow-up ======== Labs today, plan per KIANNA team Comment ======== Ultrasound findings discussed w/patient. Z31.83 encounter for assisted reproductive fertility procedure cycle DATE OF SERVICE: 12/09/2023 Procedure Note Sehila Robb MD - 12/09/2023 Indication ======== Antag [...] fluid Impression ========= USE (IVF Follicular) - 16620 1. Anteverted uterus with trilaminar endometrium 2. Stimulated ovaries bilaterally with folliculogenesis as measuredabove 3. No significant free fluid Follow-up ======== Labs today, plan per KIANNA team Comment ======== Ultrasound findings discussed w/patient. Z31.83 encounter for assisted reproductive fertility procedure cycle DATE OF SERVICE: 12/09/2023 Lucrecia Land MD IMG US OB ORDERA BLES documented in this encounter Visit Diagnoses Diagnosis Encounter for assisted reproductive fertility cycle Encounter for assisted reproductive fertility procedure cycle documented in this encounter Care Teams Landscape Drafter Relationship Specialty Start Date End Date Lisa Mcgregor FNP [address] [phone] PCP - General 05/05/22 Md Alfaro MD 05/05/22 documented as of this encounter
--- OUTSIDE RECORDS SUMMARY | 2024-01-06 08:22 | XMS_ITS | Encounter Summary ---
Author Organization [facility] Address [address] [place] [address] Care Team Providers Care Rn Baby Name Role Phone BalbirLisa [facility] Primary Care Provider [phone] Md MICHAELA Alfaro Unavailable Unavailable Reason for Visit * Reason Comments Infertility Baseline Encounter Details Date Type Department Care Team (Late st Contact Info) Description 11/26/2023 8:00 EDT [facility] - [facility] [address] [place], [place] [phone] Sheila Robb MD [address] [facility], [address] [place] [address] Encounter for assisted reproductive fertility procedure cycle (Primary Dx) Social History Tobacco Use Types [...] Sign Reading Time Taken Comments Blood Pressure 116/72 11/26/2023 0838 EDT Pulse - - Temperature - - Respiratory Rate - - Oxygen Saturation - - Inhaled Oxygen Concentration - - Weight 66.3 kg (146 lb 3.2 oz) 11/26/2023 0838 E DT Height 153.7 cm (5' 0.5) 11/26/2023 0838 EDT Body Mass Index 28.08 11/26/2023 0838 EDT documented in this encounter Progress Notes * Lucrecia Land MD - 11/26/2023 0800 EDT BASELINE US VISIT - FRESH IVF CYCLE Date: 11/26/2023 Patient Partner Name: Tiny Juarez : [birth year] HPI 33 y.o. 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 Risks/benefits/details of oocyte retrieval were discussed at length with the patient, and informed consent was obtained today. Pete underwent TESE and has 4 vials cryopreserved, with 2-3 twitch-2+ prog sperm per HPF. Prior infertility treatment: None Baseline Scan Today (11/26/2023): 4.3 mm endometrium Quiescent ovaries AFC 16 Labs today: Results for orders placed or performed in visit on 11/26/23 PROGESTERONE Result Value Ref Range Progesterone 0.4 See Table ng/mL ESTRADIOL, ADULTS Result Value Ref Range Estradiol 13 See Note pg/mL Prior Ovarian [place] Testing: FSH: 4.6 (05/15/2022) AMH: 5.8 (09/06/23) Estradiol: 28 (05/15/22) AFC: 34 (05/2022) Trial Transfer (11/26/23): Written informed consent was obtained. The patient was placed in the dorsal lithotomy position. A [place] speculum inserted in the vagina, and the cervix prepped with povidone iodine. Procedure tolerated well. Solano catheter 7 cm fundal length 6 cm transfer length Stylet: curve- minimal Transfer: easy Past Medical History: Diagnosis Date Acne vulgaris Past Surgical History: Procedure Laterality Date WISDOM TOOTH EXTRACTION Current Outpatient Medications Medication acyclovir (ZOVIRAX) 200 mg capsule chorionic gonadotropin, human (PREGNYL) 10,000 unit injection Follitropin Arnoldo (GONAL-F) 1,050 unit recon soln ganirelix (ANTAGON) 250 mcg/0.5 mL syringe menotropins (MENOPUR) 75 unit solution for subcutaneous injection norgestimate-ethinyl estradioL (ORTHO-CYCLEN) 0.25-35 mg-mcg per tablet 25/iron fum/folic/dha (-1 ORAL) progesterone in oil 50 mg/mL injection vitamin E, DL, Acetate, 22.5 mg (50 unit)/mL drops oral solution No current facility-administered medications for this visit. Allergies Allergen Reactions Augmentin [Amoxicillin-Pot Clavulanate] Rash Patient Vitals for the past 24 hrs: BP Height Weight 11/26/23 0838 116/72 153.7 cm (60.5) 66.3 kg (146 lb 3.2 oz) Exam: GEN: alert and oriented, cooperative, no distress, appears stated age PSYCH: Exhibits appropriate mood and judgement. HEENT: NC/AT CV: RRR PULM: CTAB EXT: No clubbing, cyanosis, or edema ASSESSMENT/PLAN Tiny was seen today for infertility. Diagnoses and all orders for this visit: Encounter for assisted reproductive fertility procedure cycle - PROGESTERONE; Future - ESTRADIOL, ADULTS; Standing - ANNUAL STORAGE OF EMBRYOS; Future - CRYOPRESERVATION, EMBRYOS; Future - CULTURE & FERTILIZATION OF OOCYTE,< 4 DAYS; Future - EXTENDED CULTURE OF OOCYTES/EMBRYOS, 4-7 DAYS; Future - FOLLICLE PUNCTURE, RETRIEVAL OF OOCYTE; Future - LABORATORY PREPARATION OF EMBRYO(S) FOR TRANSFER; Future - TRANSFER OF EMBRYO, INTRA-UTERINE; Future - OOCYTE ID FROM FOLLICULAR FLUID; Future - ICSI, OVER 10 OOCYTES; Future - ICSI, 10 OOCYTES OR LESS; Future MED PLAN Antagonist FSH 150 units, hMG 75 units IVF ORDERS Fertilization: ICSI all (TESE sample) Culture all to blastocyst Transfer: per ASRM guidelines Cryopreserve all surviving blasts not transferred Sperm sample: frozen TESE sample Patient encounter supervised by attending KIANNA Dr. Robb, plan discussed with Dr. Reid. Lucrecia Land MD Reproductive Endocrinology and Infertility Fellow (PGY7) [facility] * Sheila Robb MD - 11/26/2023 0800 EDT Attestation statement: I discussed the patient with the resident/fellow at the time of the visit. Cireagree with the findings and the plan of care documented in the resident's/fellow's note. documented in this encounter Plan of Treatment Upcoming Encounters Date Type Department Care Team (Late st Contact Info) Description 01/13/2024 13:15 EST Telemedicine [facility] Reproductive Medicine & Infertility Center [address] [address] Layla Reid MD [address] [place] [address], [address] [place] [address] Scheduled Orders Name Type Priority Associated Diagnoses Orde r Schedule ANNUAL STORAGE OF EMBRYOS Procedures Routine Encounter for assisted reproductive fertility procedure cycle Expected: 11/26/2023 (Approximate), Expires: 11/25/2024 CRYOPRESERVATION, EMBRYOS Procedures Routine Encounter for assisted reproductive fertility procedure cycle Expected: 11/26/2023 (Approximate), Expires: 11/25/2024 CULTURE & FERTILIZATION OF OOCYTE,< 4 DAYS Procedures Routine Encounter for assisted reproductive fertility procedure cycle Expected: 11/26/2023 (Approximate), Expires: 11/25/2024 EXTENDED CULTURE OF OOCYTES/EMBRYOS, 4-7 DAYS Procedures Routine Encounter for assisted reproductive fertility procedure cycle Expected: 11/26/2023 (Approximate), Expires: 11/25/2024 FOLLICLE PUNCTURE, RETRIEVAL OF OOCYTE Procedures Routine Encounter for assisted reproductive fertility procedure cycle Expected: 11/26/2023 (Approximate), Expires: 11/25/2024 LABORATORY PREPARATION OF EMBRYO(S) FOR TRANSFER Procedures Routine Encounter for assisted reproductive fertility procedure cycle Expected: 11/26/2023 (Approximate), Expires: 11/25/2024 TRANSFER OF EMBRYO, INTRA-UTERINE Procedures Routine Encounter for assisted reproductive fertility procedure cycle Expected: 11/26/2023 (Approximate), Expires: 11/25/2024 OOCYTE ID FROM FOLLICULAR FLUID Procedures Routine Encounter for assisted reproductive fertility procedure cycle Expected: 11/26/2023 (Approximate), Expires: 11/25/2024 ICSI, OVER 10 OOCYTES Procedures Routine Encounter for assisted reproductive fertility procedure cycle Expected: 11/26/2023 (Approximate), Expires: 11/25/2024 ICSI, 10 OOCYTES OR LESS Procedures Routine Encounter for assisted reproductive fertility procedure cycle Expected: 11/26/2023 (Approximate), Expires: 11/25/2024 documented as of this encounter Results * ESTRADIOL, ADULTS (12/05/2023 7:54 EDT) Estradiol 1,060 See Note pg/mL 12/05/2023 9:02 EDT [facility] Comment: NOTE: FEMALE [...] VENOUS BLOOD / Unknown Venipuncture / Unknown 12/05/2023 7:54 EDT 12/05/2023 8:14 EDT Sheila Robb MD CHEMISTRY & BLOOD G ORDERABLES [facility] [address] [place] [address] * ESTRADIOL, ADULTS (12/03/2023 8:45 EDT) Estradiol 392 See Note pg/mL 12/03/2023 10:07 EDT [facility] Comment: NOTE: FEMALE [...] VENOUS BLOOD / Unknown Venipuncture / Unknown 12/03/2023 8:45 EDT 12/03/2023 9:20 EDT Sheila Robb MD CHEMISTRY & BLOOD G ORDERABLES Performing Organization Address [facility] de Phone Number [facility] [address] [place] [address] * ESTRADIOL, ADULTS (12/01/2023 8:50 EDT) Estradiol 124 See Note pg/mL 12/01/2023 9:57 EDT [facility] Comment: NOTE: FEMALE [...] VENOUS BLOOD / Unknown Venipuncture / Unknown 12/01/2023 8:50 EDT 12/01/2023 9:07 EDT Sheila Robb MD CHEMISTRY & BLOOD G ORDERABLES Performing Organization Address [facility] de Phone Number [facility] [address] [place] [address] * ESTRADIOL, ADULTS (11/29/2023 8:43 EDT) Estradiol 31 See Note pg/mL 11/29/2023 10:00 EDT [facility] Comment: NOTE: FEMALE [...] VENOUS BLOOD / Unknown Venipuncture / Unknown 11/29/2023 8:43 EDT 11/29/2023 8:57 EDT Sheila Robb MD CHEMISTRY & BLOOD G ORDERABLES Performing Organization Address City/State/[facility] Co de Phone Number [facility] [address] [place] [phone] * ESTRADIOL, ADULTS (11/26/2023 9:29 EDT) Estradiol 13 See Note pg/mL 11/26/2023 11:16 EDT [facility] Comment: NOTE: FEMALE [...] VENOUS BLOOD / Unknown Venipuncture / Unknown 11/26/2023 9:29 EDT 11/26/2023 10:19 EDT Sheila Robb MD CHEMISTRY & BLOOD G ORDERABLES [facility] [address] [place] [address] * PROGESTERONE (11/26/2023 9:29 EDT) Progesterone 0.4 See Table ng/mL 11/26/2023 11:17 EDT [facility] Comment: Female Reference [...] VENOUS BLOOD / Unknown Venipuncture / Unknown 11/26/2023 9:29 EDT 11/26/2023 10:19 EDT Sheila Robb MD CHEMISTRY & BLOOD G ORDERABLES [facility] [address] [place] [address] documented in this encounter Visit Diagnoses Diagnosis Encounter for assisted reproductive fertility procedure cycle- Primary documented in this encounter Care Teams Rn Baby Relationship Specialty Start Date End Date Lisa Mcgregor FNP [address] [facility] [address] [place] [phone] PCP - General 05/05/22 Md Alfaro MD 05/05/22 documented as of this encounter
--- OUTSIDE RECORDS SUMMARY | 2024-01-06 08:22 | XMS_ITS | Encounter Summary ---
Author Organization [facility] Address [address] [place] [address] Care Team Providers Care Landscape Foreman Name Role Phone BalbirLisa [facility] Primary Care Provider [phone] Md MICHAELA Alfaro Unavailable Unavailable Reason for Visit * Reason Comments Procedure IVF monitoring Encounter Details Date Type Department Care Team (Late st Contact Info) Description 12/05/2023 9:[address] [facility] Center Reproductive Medicine & Infertility Center - [facility] [address] [place], [place] [phone] Cheryl Fuller MD 111 [facility], [facility] [address] [place] [address] Encounter for assisted reproductive fertility cycle (Primary Dx) Social History Tobacco Use [...] Progress Notes * Lucrecia Land MD - 12/05/2023 0930 EDT IVF Plan Note Cycle type: Antag, ICSI (TESE sample) Med day 10 Tiny Juarez's labs and IVF plan reviewed with attending Dr. Reid. 11/26/2023 11/29/2023 12/01/2023 12/03/2023 IVF FLOWSHEET (USE FORM) Medications: RX Day Baseline 4 6 8 Medications: RX Date 11/26/2023 11/29/2023 12/01/2023 12/03/2023 Medications: Use RX HMG Start 1 1 1 Medications: Use RX FSH 2 3 3 Medications: RX Antagon Start Labs: E2 13 31 124 392 Labs: P4 0.4 Uterus: Endometrial Thickness 4 Uterus: Trilaminar No Uterus: Endometrial Cavity Fluid No Right Ovary: Follicle Size 1 Right Ovary: Follicle <10MM 10 Left Ovary: Follicle <10MM #2 6 12/05/2023 IVF FLOWSHEET (USE FORM) Medications: RX Day 10 Medications: RX Date 12/05/2023 Medications: Use RX HMG Start 1 Medications: Use RX FSH 3 Medications: RX Antagon Start 12/04/2023 Labs: E2 1060 Labs: P4 0.7 Uterus: Endometrial Thickness 7 Uterus: Trilaminar Yes Uterus: Endometrial Cavity Fluid No Right Ovary: Follicle Size 1 13 mm Right Ovary: Follicle <10MM 10 Left Ovary: Follicle <10MM #2 10 Patient contacted with the following plan: Continue Gonal F 225u and Menopur 75u tonight, decrease to 150u Gonal F tomorrow night and [id number] Menopur Continue antagonist Scan and labs on Wednesday (will schedule time tomorrow when schedulers in office) Lucrecia Land MD Reproductive Endocrinology and Infertility Fellow (PGY7) documented in this encounter Plan of Treatment Upcoming Encounters Date Type Department Care Team (Late st Contact Info) Description 01/13/2024 13:15 EST Telemedicine [facility] Reproductive Medicine & Infertility Center - [place] [phone] Layla Reid MD [address] [place] [address], [address] [place] [address] documented as of this encounter Visit Diagnoses Diagnosis Encounter for assisted reproductive fertility cycle- Primary Encounter for assisted reproductive fertility procedure cycle documented in this encounter Care Teams Landscape Foreman Relationship Specialty Start Date End Date Lisa Mcgregor FNP [address] [place] [address] [address] [place] [phone] PCP - General 05/05/22 Md Alfaro MD 05/05/22 documented as of this encounter
--- OUTSIDE RECORDS SUMMARY | 2024-01-06 08:22 | XMS_ITS | Encounter Summary ---
Author Organization [facility] Address [address] [place] [address] Care Team Providers Care Candle Wicker Name Role Phone Lisa Mcgregor [facility] Primary Care Provider [phone] Md MICHAELA Alfaro Unavailable Unavailable Encounter Details Date Type Department Care Team (Late st Contact Info) Description 12/13/2023 8:45 EDT Anesthesia Event [facility] Reproductive Medicine & Infertility Center - [facility] [address] [place], [place] [phone] Amparo Rivera MD [address] [phone] Harriet Santana CRNA [address] [phone] Anesthesia Record Procedure Summary Procedure Name Responsible Anesthesiologist Anesthesia Start Time Anesthesia Stop Time IVF PROCEDURE Amparo Rivera MD 12/13/23 0845 09/28 0950 Events Date Time Event Comment 12/13/2023 0845 An Start The patient was re-evaluated immediately before moderate or deep sedation use, before anesthesia induction, or before the anesthesia procedure. 0846 An Start Data 0852 Anesthesia Ready 0908 Nik B/P Cuff Malfun ction, reapplied 0943 an stop data 0950 Handoff to RN I completed my handoff to the receiving nurse during which we: 1. Identified the patient 2. Identified the responsible provider 3. Reviewed the pertinent medical history 4. Discussed the surgical course 5. Reviewed intra-op anesthesia management and issues during anesthesia 6. Set expectations for post-procedure period 7. Allowed opportunity for questions and acknowledgement of understanding. 0950 An Stop Meds Name Total fentanyl citrate (PF) injection 50 mcg glycopyrrolate pre-filled syringe 0.1 mg lidocaine 2% (PF) injection glass vial 1 20 mg midazolam 1 mg/mL 2 mL vial 2 mg propOFol (DIPRIVAN) injection 445,921 mc g ceFAZolin in dextrose (iso-os) piggyback 2 g/100 mL 0 mg ketOROLAC injection 15 mg lactated ringers (LR) infusion 1,000 mL * Agents Name Aux O2 flow * Blood No blood administrations on file. Lines, Drains, and Airways Type Details Placement Removal Peripheral IV 12/13/23; 0831; Righ t; Antecubital; 12/13/23; 1106; Discharged 12/13/23 0831 by Aleisha Che RN 12/13/23 1106 by Aleisha Che, CHAPARRO documented in this encounter Social History Tobacco Use Types Packs/Day Years [...] :39 EDT documented as of this encounter OR Notes * Anesthesia Postprocedure Evaluation - Harriet Santana CRNA - 12/13/2023 0950 EDT Patient: Tiny Juarez Vital signs were reviewed with the recovery nurse. Complete vitals history is available in the Epicflowsheets. Vitals Value Taken Time BP 93/64 12/13/23 0950 Temp 36.3 12/13/23 0950 Resp 20 12/13/23 0950 Pulse From Oximetry 97 12/13/23 0950 SpO2 97 12/13/23 0950 Heart Rate 97 12/13/23 0950 Last Pain Score - Type of Anesthesia - MAC Anesthesia Post Evaluation Post-procedure vitals reviewed and are stable. Level of consciousness: sedated and responsive/arousable to verbal stimuli Temperature status: normothermia Respiratory status: airway patent, nasal cannula, O2 Sat-Oxygen therapy optimized and O2 Sat-appropriate for condition Cardiovascular status: acceptable, appropriate for condition and stable Nausea/Vomiting: none Pain management: adequate Post-Op Assessment: patient tolerated procedure well with no complications Patient participation: unable to participate due to sedation Disposition: outpatient/home Anesthesia Complications: No apparent anesthesia complications * Anesthesia Preprocedure Evaluation - Harriet Santana CRNA - 12/13/2023 0804 EDT Anesthesia Preprocedure Evaluation Patient Medical History, including Anesthesia History reviewed. Chart and Nursing Notes reviewed, including NPO status and Medication History. Additional ROS/History Findings: Allergies Allergen Reactions Augmentin [Amoxicillin-Pot Clavulanate] Rash Review of Systems Past Medical History: Diagnosis Date Acne vulgaris WTE Relevant Problems No relevant active problems Physical Exam Airway Mallampati: II TM distance: >3 FB Neck ROM: full Cardiovascular Rhythm: regular Rate: normal Dental - normal exam Pulmonary Abdominal Anesthesia Plan ASA 1 Anesthesia Type - MAC Block for post-op pain? No Anesthesia plan and risks discussed. Informed consent obtained from patient. Code status discussed? No The preoperative history and physical which was performed within 30 days of this procedure, has been reviewed and the clinically appropriate elements of the physical examination have been repeated. There are no changes to the documented history and physical or, if so, such changes are documented inthis note PAT Note Notes from 11/13/23 through 12/13/23 No notes of this type exist for this encounter. documented in this encounter Plan of Treatment Upcoming Encounters Date Type Department Care Team (Late st Contact Info) Description 01/13/2024 13:15 EST Telemedicine [facility] Reproductive Medicine & Infertility Center - [address] [address] Layla Reid MD 111 [facility], [address] [place] [address] documented as of this encounter Visit Diagnoses Not on filedocumented in this encounter Administered Medications Inactive Administered Medications - up to 3 most recent administrations Medication Order MAR Action Action Date Dose Rate Site fentaNYL citrate (PF) injection intravenous, PRN, Starting on Wed12/13/23 at 0859, Until Wed12/13/23 at 0950, Routine, Anesthesia Intraprocedure Given 12/13/2023 9:12 EDT 25 mcg Given 12/13/2023 8:59 EDT 25 mcg glycopyrrolate (PF) (ROBINUL) 0.4 mg/2 mL (0.2 mg/mL) injection intravenous, PRN, Starting on Wed12/13/23 at 0906, Until Wed12/13/23 at 0950, Routine, Anesthesia Intraprocedure Given 12/13/2023 9:06 EDT 0.1 mg ketOROLAC (TORADOL) injection intravenous, PRN, Starting on Wed12/13/23 at 0937, Until Wed12/13/23 at 0950, Routine, Anesthesia Intraprocedure Given 12/13/2023 9:37 EDT 15 mg lactated ringers (LR) infusion intravenous, FA IP EQF CONTINUOUS PRN FOR ONE STEP MEDS, Starting on Wed12/13/23 at 0830, Until Wed12/13/23 at 0950, Routine, Anesthesia Intraprocedure New Bag 12/13/2023 8:30 EDT lidocaine (PF) 20 mg/mL (2 %) injection intravenous, PRN, Starting on Wed12/13/23 at 0851, Until Wed12/13/23 at 0950, Routine, Anesthesia Intraprocedure Given 12/13/2023 9:06 EDT 60 mg Given 12/13/2023 8:51 EDT 60 mg midazolam (PF) (VERSED) injection intravenous, PRN, Starting on Wed12/13/23 at 0848, Until Wed12/13/23 at 0950, Routine, Anesthesia Intraprocedure Given 12/13/2023 8:48 EDT 2 mg propOFol (DIPRIVAN) injection intravenous, PRN, Starting on Wed12/13/23 at 0851, Until Wed12/13/23 at 0950, Routine, Anesthesia Intraprocedure Rate Change 12/13/2023 9:29 EDT 150 mcg/kg/min 59.67 mL/hr Rate Change 12/13/2023 9:14 EDT 140 mcg/kg/min 55.692 mL/h r Given 12/13/2023 9:12 EDT 20 mg documented in this encounter Care Teams Candle Wicker Relationship Specialty Start Date End Date Lsia Mcgregor FNP [address] [place] [phone] PCP - General 05/05/22 Md Alfaro MD 05/05/22 documented as of this encounter
--- OUTSIDE RECORDS SUMMARY | 2024-01-06 08:22 | XMS_ITS | Encounter Summary ---
Author Organization [facility] Address [address] [place] [address] Care Team Providers Care Security Site Supervisor Name Role Phone BalbirLisa [facility] Primary Care Provider Md MICHAELA Alfaro Unavailable Unavailable Encounter Details Date Type Department Care Team (Late st Contact Info) Description 11/26/2023 8:45 EDT Phlebotomy Only [facility] 2 Phlebotomy [address] [place] [address] Classified Advertising Manager, [facility] Phlebotomy Encounter for assisted reproductive fertility procedure cycle Social History Tobacco Use Types Packs/Day Years [...] Contact Info) Description 01/13/2024 13:15 EST Telemedicine [facility] Center Reproductive Medicine & Infertility Center - [facility] [address] [place], [place] [phone] Layla Reid MD 111 [facility], [address] [place] [address] documented as of this encounter Procedures Procedure Name Priority Date/Time Associated Diagnosis Comments PROGESTERONE Routine 11/26/2023 9:29 EDT Encounter for assisted reproductive fertility procedure cycle ESTRADIOL, ADULTS Routine 11/26/2023 9:2 9 EDT Encounter for assisted reproductive fertility procedure cycle documented in this encounter Results * ESTRADIOL, ADULTS (11/26/2023 9:29 EDT) Estradiol 13 See Note pg/mL 11/26/2023 11:16 EDT [facility] Comment: NOTE: FEMALE REFERENCE [...] Robb MD CHEMISTRY & BLOOD G ORDERABLES [facility] [address] [place] [address] * PROGESTERONE (11/26/2023 9:29 EDT) Progesterone 0.4 See Table ng/mL 11/26/2023 11:17 EDT [facility] Comment: Female Reference Ranges: [...] & BLOOD G ORDERABLES Performing Organization Address [facility]/State/ZIP Co de Phone Number [facility] [address] [place] [address] documented in this encounter Visit Diagnoses Diagnosis Encounter for assisted reproductive fertility procedure cycle documented in this encounter Care Teams Security Site Supervisor Relationship Specialty Start Date End Date Lisa Mcgregor FNP [address] [place] [address] [address] [place] [phone] PCP - General 05/05/22 Md Alfaro MD 05/05/22 documented as of this encounter
--- OUTSIDE RECORDS SUMMARY | 2024-01-06 08:22 | XMS_ITS | Encounter Summary ---
Author Organization [facility] Address [address] [place] [address] Care Team Providers Care Vest Front Presser Name Role Phone BalbirRaniy [facility] Primary Care Provider [phone] Md MICHAELA Alfaro Unavailable Unavailable Reason for Visit * Reason Comments Advice Only Encounter Details Date Type Department Care Team (Late st Contact Info) Description 09/17/2023 13:30 EDT Office Visit [facility] Rep[facility] Inf[facility] Center - [address] [id number] Layla Reid MD [address] [facility], [address] [place] [address] Infertility management (Primary Dx); Female infertility associated with male factors Social History Tobacco Use Types Packs/Day Years [...] Sign Reading Time Taken Comments Blood Pressure 136/78 09/17/2023 1320 EDT Pulse - - Temperature - - Respiratory Rate - - Oxygen Saturation - - Inhaled Oxygen Concentration - - Weight 66.6 kg (146 lb 12.8 oz) 09/17/2023 1320 EDT Height 152.4 cm (5') 09/17/2023 1320 EDT Body Mass Index 28.67 09/17/2023 1320 EDT documented in this encounter Progress Notes * Olga Santana - 09/17/2023 1330 EDT IN-VITRO FERTILIZATION INTAKE VISIT Date: 09/17/23 Patient Name: Tiny Juarez Patient Age (at time of encounter): 33 Patient : 1990 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 She and her would like to conceive together but he had a vasectomy performed in 2019. They had a consult with [facility]rology at [facility] to discuss vasectomy reversal but this was cost prohibitive for them, so opted for IVF/ICSI after TESE. Pete underwent TESE earlier this month and has 4 vials cryopreserved, with 2-3 twitch-2+ prog sperm per HPF. Prior infertility treatment: None They live in [place], [place]. OVULATORY RISK FACTORS Patient's last menstrual period was 08/29/2023 (exact date). Cycles are irregular. She reports having regular monthly menses during her 20s but she experienced some weight gain and cycles spaced, sometimes 35-40 days Evidence of ovulation: No Clinical signs of hyperandrogenism? She reports significant issues with acne History of thyroid disorder? No Recent TSH: Yes: TSH of 2.47 (09/06/23) History of galactorrhea: No TUBAL RISK FACTORS History of ectopic : No History of sexually transmitted infections: Yes, Genital herpes, no outbreak in several years History of pelvic inflammatory disease: No History of endometriosis: No History of pelvic/tubal surgery: No History of ruptured appendix: No HyCoSy: 05/21/22 Normal anteverted uterus, thin endometrium. 3D imaging was utilized. Coronal rendered image of the uterus during saline instillation shows a normal uterine cavity. HyCoSy shows bilateral tubal patency. Normal appearing ovaries, combined AFC =34. OVARIAN RESERVE TEST RESULTS: FSH: 4.6 (05/15/2022) AMH: 5.8 (09/06/23) Estradiol: 28 (05/15/22) AFC: 34 (05/2022) PRECONCEPTION DATA: Immunity labs: Rubella immune, Measles immune, GC/Chlamydia negative, HIV negative, syphilis negative, Hep B negative, Hep C negative Blood type: None on file. CBC: None on file. Last pap: WNL 02/16/23 Mammo: N/A Carrier screening: Previously discussed, declined Obstetrical History OB History Para Term AB Living 1 03 08 1 SAB IAB Ectopic Multiple Live Births # Outcome Date GA Lbr Chavo/2nd Weight Sex Delivery Anes PTL Lv 1 Term 2014 Vag-Spont Past medical history: Acne vulgaris Past surgical history: WISDOM TOOTH EXTRACTION Family History: Thyroid Problems no Congenital abnormalities no Developmental delay Son has autism, brother with Asperger's Genetic disorders no Age Mother Underwent Menopause Not assessed Social history: Tobacco Use Smoking status: Never Smokeless tobacco: Never Substance Use Topics Alcohol use: Not Currently Drug use: Yes Types: Marijuana Comment: occassional Medications: None Allergies: Augmentin [Amoxicillin-Pot Clavulanate] ROS negative except stated above. 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 [employer] Past Medical History - MSK issues Past Surgical History - Vasectomy - Ankle surgeries Medications - None Exposure to reproductive toxins: - Former smoker (quit Nov 2020), no EtOH, smokes MJ daily Paternity of Pregnancies: Number with this partner: 0 Number with other partners: 0 Age of youngest child: n/a Urologic History: Infection no STD no Mumps no Varicocele no Semen analysis Yes, azospermia Undescended Testes no Testicular Trauma no Genital Surgery Vasectomy Ejaculatory Problem no Impotence no SEMEN ANALYSIS/WASHUPS: TESE 06/01/23 Immunity labs: GC/Chlamydia negative, HIV negative, syphilis negative, Hep B negative, Hep C negative PHYSICAL EXAM: BP 136/78 Ht 152.4 cm (60) Wt 66.6 kg (146 lb 12.8 oz) LMP 08/29/2023 (Exact Date) BMI 28.67 kg/m?? General appearance: alert, cooperative Neck: supple, symmetrical, trachea midline and thyroid: not enlarged, symmetric, no tenderness/mass/nodules Lungs: non labored breathing Neurologic: Alert and oriented X 3, normal strength and tone. Normal coordination and gait Mental Status: awake and alert; oriented to person, place, and time Extremities: all extremities warm and well perfused Counseling: We discussed national and site specific live rates with IVF, approximately 50-60% after on cycle based on SART data. Risks associated with IVF including multiple , selective reduction, miscarriage, ectopic , cycle cancellation, OHSS, surgical risks, and defects were reviewed. We reviewed methods of fertilization ( ICSI with TESE sample), the use of assisted hatching and the ASRM recommended limits of number of embryos to transfer which will depend on stage and grade. We discussed that even single embryo transfer may lead to twins in 1-2% of patients. We reviewed in detail the stimulation and monitoring schedule including frequency of blood draws and ultrasounds and need for almost daily communication. We reviewed the egg retrieval procedure and associated risks or bleeding with possible need for transfusion or urgent surgical evaluation, infection, damage to surrounding structures and few or no oocytes retrieved. We discussed that not all eggs will be mature when retrieved, and not every follicle that is seen on ultrasound will have a mature egg. Depending on age and sperm sample, up to 90% of eggs may fertilize and up to 50% of these may make it to the day 5 embryo (blastocyst) stage. Day 3 embryo transfermay be recommended depending on the number and grade of embryos at that juncture. For patients with male factor infertility, we see fertilization of 50-75% and at times, impaired embryo progression, so conversion to blastocyst may only be closer to 33%. Patient expressed understanding of this counseling. We discussed TESE sample and that multiple/potentially all vials may need to be thawed to fertilize all mature eggs. We discussed possibility of a freeze-all cycle if elevated progesterone level prior to retrieval, high risk of OHSS, or poor endometrial development. Discussed that this would be associated with partial refund and lower cost for future frozen embryo transfer. Discussed that frozen embryo transfer waitlist is shorter if unsuccessful but likely ~4 months. Approximately 95% of embryos survive the freeze/thaw. We discussed that embryos do not with longer times stored in liquid nitrogen and that embryo quality, and therefore probability of conception, risk of miscarriage, and risk of trisomies such as Down syndrome are set at the age when frozen. We discussed embryo selection via morphology versus PGT-A. We had a detailed discussion about the pros and cons of PGT-A. Discussed that this genetic screening has been shown to be most beneficial todecrease twin rates in women aged 38-40, when we more routinely recommend transferring two blastocysts to improve chance of achieving a oneil . This is because oocyte aneuploidy rates increase with older reproductive age. We discussed that live rates per transfer of euploid embryo by PGT-A may be as high as 60-70%. We reviewed the limitations of this testing includingthe possibility of segmental/mosaic results as well as cost associated with testing. After counseling, patient and partner decided against PGT-A at this time. In terms of preconception counseling, immune to Rubella and Measles IgG and has received varicella vaccine series. Lastly, we revisited options for preconception carrier screening. They had decided against this and are comfortable proceeding without. Assessment: Tiny Juarez is a 33 y.o. female with male factor infertility s/p vasectomy in 2019 and now TESE presenting for IVF counseling. Plan: Stimulation Meds: GnRH Antagonist, FSH 150 units and hMG 75 units ICSI: yes, TESE sample AH: per discretion of embryologist Fertilize: all Max embryos to transfer: goal of single embryo transfer Cryopreserve: all eligible embryos not transferred To Be Done: CBC, Type and screen drawn today Consent and cryostorage contract signed today via FaceTime with partner Pete Chart review/note prep by Olga Santana MS4. Counseling and intake performed by MD KIANNA Arora fellow. Patient seen with KIANNA Caro attending Lucrecia Land MD Reproductive Endocrinology and Infertility Fellow (PGY6) [facility] Attestation statement: I saw and counseled the patient with the fellow/resident at the time of the visit. I agree with the findings and the plan of care documented in the above note. We spent a total of 45 minutes on the date of this encounter meeting with the patient and reviewingdocumentation/coordinating care as described in the above note. No procedures were performed at thetime of the visit. Layla Reid MD Reproductive Endocrinology and Infertility documented in this encounter Plan of Treatment Upcoming Encounters Date Type Department Care Team (Late st Contact Info) Description 01/13/2024 13:15 EST Telemedicine [facility] Reproductive Medicine & Infertility Center - [address] [address] Layla Reid MD [address] [place] [address], [address] [place] [address] documented as of this encounter Procedures Procedure Name Priority Date/Time Associated Diagnosis Comments COMPLETE BLOOD COUNT Routine 09/17/2023 14:20 EDT Infertility management TYPE AND SCREEN Routine 09/17/2023 14:20 EDT Infertility management documented in this encounter Results * TYPE AND SCREEN (09/17/2023 14:20 EDT) ABO O 09/17/2023 15:38 EDT [facility]LOOD [facility] Rh Factor Positive 09/17/2023 15:38 T [facility] BLOOD BANK Antibody Screen Negative 09/17/2023 15:38 [facility] Specimen Expires: 09/20/2023 @ 23:59 09/17/2023 15:38 [facility] Blood VENOUS BLOOD / Unknown Venipuncture / Unknown 09/17/2023 14:20 EDT 09/17/2023 14:29 EDT Lucrecia Land MD BLOOD BANK TESTS Performing Organization Address City/State/[facility] Co de Phone Number [facility] BLOOD BANK [address] [place] [address] * COMPLETE BLOOD COUNT (09/17/2023 14:20 EDT) WBC 7.91 4.00 - 12.40 K/cmm 09/17/2023 14:53 [facility] RBC 4.47 3.86 - 5.04 M/cmm 09/17/2023 14:53 [facility] Hemoglobin 13.8 11.6 - 15.2 g/dL 09/17/2023 14:53 [facility] HCT 40.2 34.9 - 44.4 % 09/17/2023 14:53 [facility] MCV 90 81 - 98 fL 09/17/2023 14:53 [facility] MCH 30.9 26.7 - 33.3 pg 09/17/2023 14:53 [facility] MCHC 34.3 32.1 - 35.9 g/dL 09/17/2023 14:53 [facility] RDW-CV 12.1 <14.7 % 09/17/2023 14:53 [facility] RDW-SD 39.7 <50.4 fl 09/17/2023 14:53 [facility] PLT 191 141 - 377 K/cmm 09/17/2023 14:53 [facility] MPV 11.9 9.5 - 12.7 fL 09/17/2023 14:53 EDT [facility]ORY SERVICES Blood VENOUS BLOOD / Unknown Venipuncture / Unknown 09/17/2023 14:20 EDT 09/17/2023 14:46 EDT Lucrecia Land MD HEMATOLOGY & PF4 ORDERABLES [facility]ORY [facility] [address] [place] [address] documented in this encounter Visit Diagnoses Diagnosis Infertility management- Primary Unspecified procreative management Female infertility associated with male factors Female infertility of other specified origin documented in this encounter Historical Medications * This list may reflect changes made after this encounter. Medication Sig Dispensed Refills Start Date End Date 25/iron fum/folic/dha (-1 ORAL) Take by mouth daily. acyclovir (ZOVIRAX) 200 mg capsule Take 2 Capsules by mouth 2 times daily. vitamin E, DL, Acetate, 22.5 mg (50 unit)/mL drops oral solution Take 13.5 mg by mouth daily. 11/26/2023 added in this encounter Care Teams Vest Front Presser Relationship Specialty Start Date End Date Lisa Mcgregor FNP [address] [place] [phone] PCP - General 05/05/22 Md Alfaro MD 05/05/22 documented as of this encounter
--- OUTSIDE RECORDS SUMMARY | 2024-01-06 08:22 | XMS_ITS | Encounter Summary ---
Author Organization [facility] Address [address] [place] [address] Care Team Providers Care Building Architect Name Role Phone BalbirLisa [facility] Primary Care Provider [phone] Md MICHAELA Alfaro Unavailable Unavailable Encounter Details Date Type Department Care Team (Late st Contact Info) Description 12/07/2023 Orders Only [facility] Reproductive Medicine & Infertility Center - [facility] [address] [place] [address] Aleisha Che RN Social History Tobacco Use [...] Dispensed Refills Start Date End Da te leuprolide (LUPRON) 1 mg/0.2 mL kit Inject 80 units into the skin 12 hours apart when direct. BILL TO IVF CLINIC PLAN, GLOBAL. 1 Each 12/07/2023 leuprolide (LUPRON) 1 mg/0.2 mL kit Inject 80 units into the skin 12 hours apart when direct. 1 Each 12/07/2023 12/07/2023 documented in this encounter Plan of Treatment Upcoming Encounters Date Type Department Care Team (Late st Contact Info) Description 01/13/2024 13:15 EST Telemedicine [facility] Reproductive Medicine & Infertility Center - [address] [phone] Layla Reid MD [address] [facility], [address] [place] [address] documented as of this encounter Visit Diagnoses Not on filedocumented in this encounter Discontinued Medications Medication Sig Discontinue Reason Start Date End Da te leuprolide (LUPRON) 1 mg/0.2 mL kit Inject 80 units into the skin 12 hours apart when direct. Reorder 12/07/2023 12/07/2023 documented as of this encounter Care Teams Building Architect Relationship Specialty Start Date End Date Lisa Mcgregor FNP [address] [facility] [address] [place] [phone] PCP - General 05/05/22 Md Alfaro MD 05/05/22 documented as of this encounter
--- OUTSIDE RECORDS SUMMARY | 2024-01-06 08:22 | XMS_ITS | Encounter Summary ---
Author Organization [facility] Address [address] [place] [address] Care Team Providers Care Air Cargo Specialist Supervisor Name Role Phone BalbirLisa [facility] Primary Care Provider [phone] Md MICHAELA Alfaro Unavailable Unavailable Reason for Visit * Reason Comments Procedure IVF monitoring Encounter Details Date Type Department Care Team (Late st Contact Info) Description 12/09/2023 8:00 EDT Procedure visit [facility] Center Reproductive Medicine & Infertility Center - [facility] [address] [place], [place] [phone] Sheila Robb MD [address] [facility], [address] [place] [address] Encounter for assisted reproductive fertility [...] Dispensed Refills Start Date End Da te menotropins (MENOPUR) 75 unit solution for subcutaneous injection Inject 150 Units into the skin daily. 5 Each 12/09/2023 documented in this encounter Progress Notes * Lucrecia Land MD - 12/09/2023 0800 EDT IVF Plan Note Cycle type: Antag, ICSI (TESE sample) Med day 12 on [facility] US, labs and IVF plan reviewed with attending Dr. Hinton. Visit encounter supervisedby Dr. Robb. 11/26/2023 11/29/2023 12/01/2023 12/03/2023 IVF FLOWSHEET (USE [...] Ovary: Follicle Size 1 Right Ovary: Follicle Size 2 Right Ovary: Follicle Size 3 Right Ovary: Follicle Size 4 Right Ovary: Follicle Size 5 Right Ovary: Follicle Size 6 Right Ovary: Follicle Size 7 Right Ovary: Follicle Size 8 Right Ovary: Follicle Size 9 Right Ovary: Follicle Size 10 Right Ovary: Follicle <10MM 10 Left Ovary: Follicle Size 11 Left Ovary: Follicle Size 12 Left Ovary: Follicle Size 13 Left Ovary: Follicle Size 15 Left Ovary: Follicle Size 16 Left Ovary: Follicle Size 18 Left Ovary: Follicle Size 19 Left Ovary: Follicle Size 20 Left Ovary: Follicle <10MM #2 6 12/05/2023 12/07/2023 12/09/2023 IVF FLOWSHEET (USE FORM) Medications: RX Day 10 12 14 Medications: RX Date 12/05/2023 12/07/2023 12/09/2023 Medications: Use RX HMG Start 1 1 1 Medications: Use RX FSH 3 2 -- Medications: RX Antagon Start 12/04/2023 12/07/2023 Labs: E2 1060 2079 [id number] Labs: P4 0.7 0.8 0.9 Uterus: Endometrial Thickness 7 7 9.4 Uterus: Trilaminar Yes Yes Yes Uterus: Endometrial Cavity Fluid No No No Right Ovary: Follicle Size 1 13 mm 15 mm 19 mm Right Ovary: Follicle Size 2 14 18 Right Ovary: Follicle Size 3 14 mm 16 mm Right Ovary: Follicle Size 4 14 mm 15 mm Right Ovary: Follicle Size 5 13 mm 14 mm Right Ovary: Follicle Size 6 13 mm 14 mm Right Ovary: Follicle Size 7 13 mm 14 mm Right Ovary: Follicle Size 8 12 mm 13 mm Right Ovary: Follicle Size 9 11 mm 13 mm Right Ovary: Follicle Size 10 11 mm -- Right Ovary: Follicle <10MM 10 5 8 Left Ovary: Follicle Size 11 14 mm 17 mm Left Ovary: Follicle Size 12 14 mm 16 mm Left Ovary: Follicle Size 13 13 mm 15 mm Left Ovary: Follicle Size 15 13 mm 15 mm Left Ovary: Follicle Size 16 13 mm 14 mm Left Ovary: Follicle Size 18 13 mm 13 mm Left Ovary: Follicle Size 19 13 mm 13 mm Left Ovary: Follicle Size 20 -- -- Left Ovary: Follicle <10MM #2 10 -- 6 Please contact patient with the following plan: Continue Gonal F 112.5u and Menopur 75u tonight Drop to 75u GonalF tomorrow and continue 75u Menopur Continue antagonist Scan and labs on Wednesday Lucrecia Land MD Reproductive Endocrinology and Infertility Fellow (PGY7) * Sheila Robb MD - 12/09/2023 0800 EDT Attestation statement: I discussed the patient with the resident/fellow at the time of the visit. Iagree with the findings and the plan of care documented in the resident's/fellow's note. documented in this encounter Plan of Treatment Upcoming Encounters Date Type Department Care Team (Late st Contact Info) Description 01/13/2024 13:15 EST Telemedicine [facility] Reproductive Medicine & Infertility Center - [address] [phone] Layla Reid MD [address] [place] [address], [facility], [address] [place] [address] documented as of this encounter Visit Diagnoses Diagnosis Encounter for assisted reproductive fertility cycle- Primary Encounter for assisted reproductive fertility procedure cycle documented in this encounter Discontinued Medications Medication Sig Discontinue Reason Start Date End Da te menotropins (MENOPUR) 75 unit solution for subcutaneous injection Inject 150 Units into the skin daily. Reorder 11/02/2023 12/09/2023 documented as of this encounter Care Teams Air Cargo Specialist Supervisor Relationship Specialty Start Date End Date Lisa Mcgregor FNP [address] [place] [phone] PCP - General 05/05/22 Md Alfaro MD 05/05/22 documented as of this encounter
--- OUTSIDE RECORDS SUMMARY | 2024-01-06 08:22 | XMS_ITS | Encounter Summary ---
Author Organization [facility] Address [address] [place] [address] Care Team Providers Care Financial Assistance Advisor Name Role Phone BalbirLisa [facility] Primary Care Provider [phone] Md MICHAELA Alfaro Unavailable Unavailable Reason for Visit * Reason Comments Procedure IVF monitoring Encounter Details Date Type Department Care Team (Late st Contact Info) Description 12/11/2023 9:10 EDT Procedure visit [facility] Center Reproductive Medicine & Infertility Center - [facility] [address] [place], [place] [address] Aurora Hinton MD 111 [facility], [facility] 4 [place] [address] Encounter for assisted reproductive fertility [...] Progress Notes * Lucrecia Land MD - 12/11/2023 0910 EDT IVF Plan Note Cycle type: Antag, ICSI (TESE sample) Med day 14 on 03/08 Tiny Juarez's US, labs and IVF plan reviewed with attending Dr. Hinton. 11/26/2023 11/29/2023 12/01/2023 12/03/2023 IVF FLOWSHEET (USE [...] Follicle <10MM #2 6 12/05/2023 12/07/2023 12/09/2023 12/11/2023 IVF FLOWSHEET (USE FORM) Medications: RX Day 10 12 14 16 Medications: RX Date 12/05/2023 12/07/2023 12/09/2023 12/11/2023 Medications: Use RX HMG Start 1 1 1 1 Medications: Use RX FSH 3 2 -- 1 Medications: RX Antagon Start 12/04/2023 12/07/2023 Labs: E2 1060 2079 3167 4364 Labs: P4 0.7 0.8 0.9 1.1 Uterus: Endometrial Thickness 7 7 9.4 9 Uterus: Trilaminar Yes Yes Yes Yes Uterus: Endometrial Cavity Fluid No No No No Right Ovary: Follicle Size 1 13 mm 15 mm 19 mm 24 mm Right Ovary: Follicle Size 2 14 18 19 Right Ovary: Follicle Size 3 14 mm 16 mm 19 mm Right Ovary: Follicle Size 4 14 mm 15 mm 18 mm Right Ovary: Follicle Size 5 13 mm 14 mm 18 mm Right Ovary: Follicle Size 6 13 mm 14 mm 16 mm Right Ovary: Follicle Size 7 13 mm 14 mm 15 mm Right Ovary: Follicle Size 8 12 mm 13 mm 15 mm Right Ovary: Follicle Size 9 11 mm 13 mm 15 mm Right Ovary: Follicle Size 10 11 mm -- 14 mm Right Ovary: Follicle <10MM 10 5 8 -- Left Ovary: Follicle Size 11 14 mm 17 mm 23 mm Left Ovary: Follicle Size 12 14 mm 16 mm 18 mm Left Ovary: Follicle Size 13 13 mm 15 mm 17 mm Left Ovary: Follicle Size 15 13 mm 15 mm 17 mm Left Ovary: Follicle Size 16 13 mm 14 mm 16 mm Left Ovary: Follicle Size 18 13 mm 13 mm 16 mm Left Ovary: Follicle Size 19 13 mm 13 mm 16 mm Left Ovary: Follicle Size 20 -- -- 16 mm Left Ovary: Follicle <10MM #2 10 -- 6 -- Patient contacted with the following plan: Lupron trigger tonight at 9:30pm for retrieval Wednesday at 8:30am Lupron labs tomorrow Lucrecia Land MD Reproductive Endocrinology and Infertility Fellow ([id number]) [facility] Attestation statement: I discussed the patient with the resident/fellow at the time of the visit. Iagree with the findings and the plan of care documented in the resident's/fellow's note. Aurora Hinton MD KIANNA Attending documented in this encounter Plan of Treatment Upcoming Encounters Date Type Department Care Team (Late st Contact Info) Description 01/13/2024 13:15 EST Telemedicine [facility] Reproductive Medicine & Infertility Center - [address] [phone] Layla Reid MD [address] [place] [address], Level 4 [place] [address] documented as of this encounter Results * PROGESTERONE (12/12/2023 7:25 EDT) Progesterone 13.5 See Table ng/mL 12/12/2023 8:53 EDT [facility] Comment: Female Reference Ranges: [...] MD CHEMISTRY & BLOOD GA S ORDERABLES [facility] [address] [place] [address] * LH (12/12/2023 7:25 EDT) Luteinizing Hormone 10.5 See Note mIU/mL 12/12/2023 9:39 EDT [facility] Comment: NOTE: Female Reference Ranges: [...] MD CHEMISTRY & BLOOD GA S ORDERABLES [facility] [address] [place] [address] documented in this encounter Visit Diagnoses Diagnosis Encounter for assisted reproductive fertility procedure cycle- Primary documented in this encounter Care Teams Financial Assistance Advisor Relationship Specialty Start Date End Date Lisa Mcgregor FNP [address] [place] [address] [address] [place] [phone] PCP - General 05/05/22 Md Alfaro MD 05/05/22 documented as of this encounter
--- OUTSIDE RECORDS SUMMARY | 2024-01-06 08:22 | XMS_ITS | Encounter Summary ---
Author Organization [facility] Address [address] [place] [address] Care Team Providers Care Sprinkler Repair Technician Name Role Phone Lisa Mcgregor [facility] Primary Care Provider [phone] Md MICHAELA Alfaro Unavailable Unavailable Reason for Referral * HEAD CHARRER (Routine/Next Available) - Authorization Not Required Specialty Diagnoses / Procedures Referred By Jalil quiñones Referred To Contact Diagnoses Encounter for assisted reproductive fertility cycle Procedures US CLOTH PRINTING BACK TENDER EXAM (KIANNA ONLY) Lucrecia Land MD [address] [address] Referral ID Status Reason Start Date Expiration Date Visits Requested Visits Authorized [id number] Authorization Not Required 11/01/2023 4 4 Reason for Visit * HEAD CHARRER (Routine/Next Available) - Authorization Not Required Specialty Diagnoses / Procedures Referred By Jalil quiñnoes Referred To Contact Diagnoses Encounter for assisted reproductive fertility cycle Procedures US CLOTH PRINTING BACK TENDER EXAM (KIANNA ONLY) Lucrecia Land MD [address] [address] Referral ID Status Reason Start Date Expiration Date Visits Requested Visits Authorized [id number] Authorization Not Required 11/01/2023 4 4 Encounter Details Date Type Department Care Team (Latest Contact Info) Description 12/11/2023 8:38 EDT - 12/11/2023 23:59 EDT Hospital Encounter [facility] OBGYN Services - [address] [address] Encounter for assisted reproductive fertility cycle Discharge [...] fum/folic/dha (-1 ORAL) Take by mouth daily. norgestimate-ethinyl estradioL (ORTHO-CYCLEN) 0.25-35 mg-mcg per tablet [...] Info) Description 01/13/2024 13:15 EST Telemedicine [facility] Reproductive Medicine & Infertility Center - [address] [address] Layla Reid MD [address] [place] [address], [address] [place] [address] documented as of this encounter Procedures Procedure Name Priority Date/Time Associated Diagnosis Comments US CLOTH PRINTING BACK TENDER EXAM (KIANNA ONLY) Routine 12/11/2023 9:36 EDT Encounter for assisted reproductive fertility cycle documented in this encounter Results * US CLOTH PRINTING BACK TENDER EXAM (KIANNA ONLY) (12/11/2023 9:36 EDT) Anatomical [...] mild Impression ========= USE (IVF Follicular) - 87160 1. Uterus appears normal with trilaminar endometrium. [...] mild Impression ========= USE (IVF Follicular) - 56387 1. Uterus appears normal with trilaminar endometrium. 2. Ovarian follicles appear to be in late folliculogenesis. 3. Small amount of fluid in the cul de sac. Follow-up ======== Labs today, plan per ART team. Comment ======== N97.8 female infertility, other DATE OF SERVICE: 12/11/2023 Lucrecia Land MD [facility] OB ORDERA BLES documented in this encounter Visit Diagnoses Diagnosis Encounter for assisted reproductive fertility cycle Encounter for assisted reproductive fertility procedure cycle documented in this encounter Care Teams Sprinkler Repair Technician Relationship Specialty Start Date End Date Lisa Mcgregor FNP [address] [place] [phone] PCP - General 05/05/22 Md Alfaro MD 05/05/22 documented as of this encounter
--- OUTSIDE RECORDS SUMMARY | 2024-01-06 08:22 | XMS_ITS | Encounter Summary ---
Author Organization [facility] Address [address] [place] [address] Care Team Providers Care Rn Observation Name Role Phone Lisa Mcgregor [facility] Primary Care Provider [phone] Md MICHAELA Alfaro Unavailable Unavailable Encounter Details Date Type Department Care Team (Late st Contact Info) Description 12/12/2023 Documentation Visit [facility] Reproductive Medicine & Infertility Center - [facility] [address] [place] [address] Lucrecia Land MD 111 [facility], Level 4 [place] [phone] Social History Tobacco Use Types Packs/Day Years [...] Progress Notes * Lucrecia Land MD - 12/12/2023 0857 EDT Lupron labs today: Component Latest Ref Rng 12/12/2023 Estradiol See Note pg/mL 6,285 Luteinizing Hormone See Note mIU/mL 10.5 Progesterone See Table ng/mL 13.[address] Hinton, given high progesterone likely seeing LH on the decline, OK to proceed. Lucrecia Land MD Reproductive Endocrinology and Infertility Fellow (PGY7) [facility] documented in this encounter Plan of Treatment Upcoming Encounters Date Type Department Care Team (Late st Contact Info) Description 01/13/2024 13:15 EST Telemedicine [facility] Reproductive Medicine & Infertility Center - [address] [phone] Layla Reid MD [address] [place] [address], [facility], Level [address] [place] [phone] documented as of this encounter Visit Diagnoses Not on filedocumented in this encounter Care Teams Rn Observation Relationship Specialty Start Date End Date Lisa Mcgregor FNP 26 [facility] [address] [place] [phone] PCP - General 05/05/22 Md Alfaro MD 05/05/22 documented as of this encounter
--- OUTSIDE RECORDS SUMMARY | 2024-01-06 08:22 | XMS_ITS | Encounter Summary ---
Author Organization [facility] Address [address] [place] [address] Care Team Providers Care Manufacturing Automation Engineer Name Role Phone BalbirLisa [facility] Primary Care Provider [phone] Md MICHAELA Alfaro Unavailable Unavailable Encounter Details Date Type Department Care Team (Late st Contact Info) Description 12/12/2023 7:15 EDT Phlebotomy Only [facility] 2 Phlebotomy [address] [place] [address] Administrative Coordinator, [facility] Phlebotomy Encounter for assisted reproductive fertility cycle; [...] Contact Info) Description 01/13/2024 13:15 EST Telemedicine [facility] Center Reproductive Medicine & Infertility Center - [facility] [address] [place], [place] [address] Layla Reid MD 111 [facility], Level [address] [place] [phone] documented as of this encounter Procedures Procedure Name Priority Date/Time Associated Diagnosis Comments PROGESTERONE Routine 12/12/2023 7:25 EDT Encounter for assisted reproductive fertility procedure cycle ESTRADIOL, ADULTS Routine 12/12/2023 7:2 5 EDT Encounter for assisted reproductive fertility cycle LH Routine 12/12/2023 7:25 EDT Encounter for assisted reproductive fertility procedure cycle documented in this encounter Results * PROGESTERONE (12/12/2023 7:25 EDT) [facility] Progesterone 13.5 See Table ng/mL 12/12/2023 8:[address] [facility] Comment: Female Reference Ranges: [...] BLOOD GA S ORDERABLES Performing Organization Address [facility] Co de Phone Number [facility] [address] [place] [address] * LH (12/12/2023 7:25 EDT) [facility] Luteinizing Hormone 10.5 See Note mIU/mL 12/12/2023 9:[address] [facility] Comment: NOTE: Female Reference [...] BLOOD GA S ORDERABLES Performing Organization Address [facility] de Phone Number [facility] [address] [place] [address] * ESTRADIOL, ADULTS (12/12/2023 7:25 EDT) [facility] Estradiol 6,285 See Note pg/mL 12/12/2023 9:[address] [facility] Comment: NOTE: FEMALE REFERENCE [...] MD CHEMISTRY & BLOOD GA S ORDERABLES [facility] [address] [place] [address] documented in this encounter Visit Diagnoses Diagnosis Encounter for assisted reproductive fertility cycle Encounter for assisted reproductive fertility procedure cycle Encounter for assisted reproductive fertility procedure cycle documented in this encounter Care Teams Manufacturing Automation Engineer Relationship Specialty Start Date End Date Lisa Mcgregor FNP [address] [place] [phone] PCP - General 05/05/22 Md Alfaro MD 05/05/22 documented as of this encounter
--- OUTSIDE RECORDS SUMMARY | 2024-01-06 08:22 | XMS_ITS | Encounter Summary ---
Author Organization [facility] Address [address] [place] [address] Care Team Providers Care Pin Machine Operator Name Role Phone Balbir Lisa [facility] Primary Care Provider [phone] Md MICHAELA Alfaro Unavailable Unavailable Encounter Details Date Type Department Care Team (Latest Contact Info) Description 12/13/2023 7:59 EDT - 12/13/2023 23:59 EDT Hospital Encounter [facility] Reproductive Medicine & Infertility Center - [facility] [address] [place], [place] [address] Discharge Disposition: Home or Self Care Social [...] 3 times daily. 90 Tablet 12/13/2023 12/29/2023 progesterone in oil 50 mg/mL injection Inject 1 mL into the muscle daily. 3 Each 1 11/02/2023 12/29/2023 documented as of this encounter Discharge Disposition Disposition Code Departure Means Destination Home or Self Care documented in this encounter Plan of Treatment Upcoming Encounters Date Type Department Care Team (Late st Contact Info) Description 01/13/2024 13:15 EST Telemedicine [facility] Reproductive Medicine & Infertility Center - [address] [address] Layla Reid MD [address] [place] [address], Level [address] [place] [address] documented as of this encounter Procedures Procedure Name Priority Date/Time Associated Diagnosis Comments POC IVF/KIANNA US GUIDANCE Routine 12/13/2023 7:59 EDT documented in this encounter Results * POC IVF/KIANNA US GUIDANCE (12/13/2023 7:59 EDT) Narrative 12/13/2023 7:59 EDT This is a non-reportable exam. Layla Reid MD IMG US POC ORDERA BLES documented in this encounter Visit Diagnoses Not on filedocumented in this encounter Care Teams Pin Machine Operator Relationship Specialty Start Date End Date Lisa Mcgregor FNP 26 [facility] [address] [place] [phone] PCP - General 05/05/22 Md Alfaro MD 05/05/22 documented as of this encounter
--- OUTSIDE RECORDS SUMMARY | 2024-01-06 08:22 | XMS_ITS | Encounter Summary ---
Author Organization [facility] Address [address] [place] [address] Care Team Providers Care Methods Analyst Name Role Phone BalbirRaniy [facility] Primary Care Provider [phone] Md MICHAELA Alfaro Unavailable Unavailable Reason for Visit * Reason Onset Date Comments Results 12/14/2023 Encounter Details Date Type Department Care Team (Late st Contact Info) Description 12/14/2023 Telephone [facility] Reproductive Medicine & Infertility Center - [facility] [address] [place], [place] [phone] Lucrecia Land MD 111 [facility], Level [address] [place] [address] Results Social History Tobacco Use [...] Telephone Encounter - Lucrecia Land MD - 12/14/2023 0959 EDT Call to Tiny with fertilization report, left voicemail: TINY [place].: Day 0: Total # eggs retrieve = 15 11x MII ? ICSI 3x AK 1x E/ZP Day 1: 9x 2PN 2x 3PN Let her know I sent prescription for pain medication and to please call back with worsening/new symptoms. Lucrecia Land MD Reproductive Endocrinology and Infertility Fellow ([id number]) [facility] documented in this encounter Plan of Treatment Upcoming Encounters Date Type Department Care Team (Late st Contact Info) Description 01/13/2024 13:15 EST Telemedicine [facility] Reproductive Medicine & Infertility Center - [address] [phone] Layla Reid MD [address] [place] [address], [address] [place] [phone] documented as of this encounter Visit Diagnoses Not on filedocumented in this encounter Care Teams Methods Analyst Relationship Specialty Start Date End Date Lisa Mcgregor FNP 26 [facility] [address] [place] [phone] PCP - General 05/05/22 Md Alfaro MD 05/05/22 documented as of this encounter
--- OUTSIDE RECORDS SUMMARY | 2024-01-06 08:22 | XMS_ITS | Encounter Summary ---
Author Organization [facility] Address [address] [place] [address] Care Team Providers Care Supervisor Wall Mirror Department Name Role Phone Lisa Mcgregor [facility] Primary Care Provider [phone] Md MICHAELA Alfaro Unavailable Unavailable Reason for Referral * RAW MILL OPERATOR (Routine/Next Available) - Authorization Not Required Specialty Diagnoses / Procedures Referred By Jalil quiñones Referred To Contact Diagnoses Encounter for assisted reproductive fertility cycle Procedures US INSPECTOR TIMERS EXAM (KIANNA ONLY) Lucrecia aLnd MD [address] [address] Referral ID Status Reason Start Date Expiration Date Visits Requested Visits Authorized [id number] Authorization Not Required 11/01/2023 4 4 Reason for Visit * RAW MILL OPERATOR (Routine/Next Available) - Authorization Not Required Specialty Diagnoses / Procedures Referred By Jalil quiñones Referred To Contact Diagnoses Encounter for assisted reproductive fertility cycle Procedures US INSPECTOR TIMERS EXAM (KIANNA ONLY) Lucrecia Land MD [address] [address] Referral ID Status Reason Start Date Expiration Date Visits Requested Visits Authorized [id number] Authorization Not Required 11/01/2023 4 4 Encounter Details Date Type Department Care Team (Latest Contact Info) Description 12/07/2023 7:25 EDT - 12/07/2023 23:59 EDT Hospital Encounter [facility] OBGYN Services - [address] [address] Encounter for assisted reproductive fertility cycle Discharge [...] IVF CLINIC PLAN, GLOBAL. 1 Each 12/07/2023 25/iron fum/folic/dha (-1 ORAL) Take by mouth daily. Follitropin Arnoldo (GONAL-F) 1,050 unit recon soln Inject 300 Units into the skin daily. 4 Each 11/02/2023 12/10/2023 ganirelix (ANTAGON) 250 mcg/0.5 mL syringe Inject 0.5 mL into the skin daily. 8 Each 11/02/2023 12/10/2023 menotropins (MENOPUR) 75 unit solution for subcutaneous injection Inject 150 Units into the skin daily. 15 Each 11/02/2023 12/09/2023 norgestimate-ethinyl estradioL (ORTHO-CYCLEN) 0.25-35 mg-mcg per tablet [...] Contact Info) Description 01/13/2024 13:15 EST Telemedicine [facility] Reproductive Medicine & Infertility Center - [address] [address] Layla Reid MD [address] [place] [address], Level [address] [place] [address] documented as of this encounter Procedures Procedure Name Priority Date/Time Associated Diagnosis Comments US INSPECTOR TIMERS EXAM (KIANNA ONLY) Routine 12/07/2023 7:30 EDT Encounter for assisted reproductive fertility cycle documented in this encounter Results * US INSPECTOR TIMERS EXAM (KIANNA ONLY) (12/07/2023 7:30 EDT) Anatomical Region Laterality Modality Ultrasound 12/07/2023 7:37 EDT Narrative 12/07/2023 12:00 EDT Indication ======== Antag on GN 2 Male factor (s/p vasectomy with TESE sample) [...] trace Impression ========= USE (IVF Follicular) - 89484 1. Anteverted uterus with trilaminar endometrium 2. [...] trace Impression ========= USE (IVF Follicular) - 22893 1. Anteverted uterus with trilaminar endometrium 2. [...] cycle documented in this encounter Care Teams Supervisor Wall Mirror Department Relationship Specialty Start Date End Date Lisa Mcgregor FNP [address] [phone] PCP - General 05/05/22 Md Alfaro MD 05/05/22 documented as of this encounter
--- OUTSIDE RECORDS SUMMARY | 2024-01-06 08:22 | XMS_ITS | Encounter Summary ---
Author Organization [facility] Address [address] [place] [address] Care Team Providers Care Hub Borer Name Role Phone BalbirLisa [facility] Primary Care Provider [phone] Md MICHAELA Alfaro Unavailable Unavailable Encounter Details Date Type Department Care Team (Late st Contact Info) Description 12/05/2023 7:45 EDT Phlebotomy Only [facility] 2 Phlebotomy [address] [place] [address] Commercial Development Manager, [facility] Phlebotomy Encounter for assisted reproductive fertility procedure cycle; Encounter for assisted reproductive fertility cycle Social History Tobacco Use Types Packs/Day [...] Contact Info) Description 01/13/2024 13:15 EST Telemedicine [facility] Center Reproductive Medicine & Infertility Center - [facility] [address] [place], [place] [address] Layla Reid MD 111 [facility], Level [address] [place] [phone] documented as of this encounter Procedures Procedure Name Priority Date/Time Associated Diagnosis Comments PROGESTERONE Routine 12/05/2023 7:54 EDT Encounter for assisted reproductive fertility cycle ESTRADIOL, ADULTS Routine 12/05/2023 7:5 4 EDT Encounter for assisted reproductive fertility procedure cycle documented in this encounter Results * PROGESTERONE (12/05/2023 7:54 EDT) Progesterone 0.7 See Table ng/mL 12/05/2023 9:02 EDT [facility] Comment: Female Reference [...] Unknown 12/05/2023 7:54 EDT 12/05/2023 8:14 EDT Layla Reid MD CHEMISTRY & BLOOD GAS ORDERABLES Performing Organization Address [facility] de Phone Number [facility] [address] [place] [address] * ESTRADIOL, ADULTS (12/05/2023 7:54 EDT) Estradiol 1,060 See Note pg/mL 12/05/2023 9:02 EDT [facility] Comment: NOTE: FEMALE [...] & BLOOD G ORDERABLES Performing Organization Address [facility] Co de Phone Number [facility] [address] [place] [address] documented in this encounter Visit Diagnoses Diagnosis Encounter for assisted reproductive fertility procedure cycle Encounter for assisted reproductive fertility cycle Encounter for assisted reproductive fertility procedure cycle documented in this encounter Care Teams Hub Borer Relationship Specialty Start Date End Date Lisa Mcgregor FNP [address] [place] [address] [address] [place] [phone] PCP - General 05/05/22 Md Alfaro MD 05/05/22 documented as of this encounter
--- OUTSIDE RECORDS SUMMARY | 2024-01-06 08:22 | XMS_ITS | Encounter Summary ---
Author Organization [facility] Address [address] [place] [address] Care Team Providers Care Problem Manager Name Role Phone Lisa Mcgregor [facility] Primary Care Provider [phone] Md MICHAELA Alfaro Unavailable Unavailable Encounter Details Date Type Department Care Team (Late st Contact Info) Description 12/09/2023 Orders Only [facility] Reproductive Medicine & Infertility [address] [address] Aleisha Che RN Social History Tobacco Use [...] Info) Description 01/13/2024 13:15 EST Telemedicine [facility] Reproductive Medicine & Infertility [address] [phone] Layla Reid MD 111 [facility] 4 [place] [address] documented as of this encounter Visit Diagnoses Not on filedocumented in this encounter Care Teams Problem Manager Relationship Specialty Start Date End Date Lisa Mcgregor FNP [address] [place] [phone] PCP - General 05/05/22 Md Alfaro MD 05/05/22 documented as of this encounter
--- OUTSIDE RECORDS SUMMARY | 2024-01-06 08:22 | XMS_ITS | Encounter Summary ---
Author Organization [facility] Address [address] [place] [address] Care Team Providers Care Protective Services Case Worker Name Role Phone BalbirLisa [facility] Primary Care Provider [phone] Md MICHAELA Alfaro Unavailable Unavailable Encounter Details Date Type Department Care Team (Late st Contact Info) Description 12/01/2023 8:45 EDT Phlebotomy Only [facility] Center 2 Phlebotomy [address] [place] [address] Treasury Agent, [facility] Phlebotomy Encounter for assisted reproductive [...] Contact Info) Description 01/13/2024 13:15 EST Telemedicine [facility] Center Reproductive Medicine & Infertility Center - [facility] [address] [place], [place] [phone] Layla Reid MD [address] [facility], Level 4 [place] [phone] documented as of this encounter Procedures Procedure Name Priority Date/Time Associated Diagnosis Comments ESTRADIOL, ADULTS Routine 12/01/2023 8:5 0 EDT Encounter for assisted reproductive fertility procedure cycle documented in this encounter Results * ESTRADIOL, ADULTS (12/01/2023 8:50 EDT) Estradiol 124 See Note pg/mL 12/01/2023 9:57 EDT [facility] Comment: NOTE: FEMALE REFERENCE [...] Robb MD CHEMISTRY & BLOOD G ORDERABLES [facility] [address] [place], [place] [address] documented in this encounter Visit Diagnoses Diagnosis Encounter for assisted reproductive fertility procedure cycle documented in this encounter Care Teams Protective Services Case Worker Relationship Specialty Start Date End Date Lisa Mcgregor FNP [address] [facility] [address] [place] [phone] PCP - General 05/05/22 Md Alfaro MD 05/05/22 documented as of this encounter
--- OUTSIDE RECORDS SUMMARY | 2024-01-06 08:22 | XMS_ITS | Encounter Summary ---
Author Organization [facility] Address [address] [place] [address] Care Team Providers Care Automobile Body Repair Supervisor Name Role Phone Lisa Mcgregor [facility] Primary Care Provider [phone] Md MICHAELA Alfaro Unavailable Unavailable Reason for Referral * ELECTRICAL HARDWARE ENGINEER (Routine/Next Available) - Authorization Not Required Specialty Diagnoses / Procedures Referred By Contunique quiñones Referred To Contact Diagnoses Encounter for assisted reproductive fertility cycle Procedures BASELINE Lucrecia Barakat MD [address] [place] [phone] Referral ID Status Reason Start Date Expiration Date Visits Requested Visits Authorized [id number] Authorization Not Required 11/01/2023 1 1 Reason for Visit * ELECTRICAL HARDWARE ENGINEER (Routine/Next Available) - Authorization Not Required Specialty Diagnoses / Procedures Referred By Jalil quiñones Referred To Contact Diagnoses Encounter for assisted reproductive fertility cycle Procedures US BASELINE Lucrecia Barakat MD [address] [address] Referral ID Status Reason Start Date Expiration Date Visits Requested Visits Authorized [id number] Authorization Not Required 11/01/2023 1 1 Encounter Details Date Type Department Care Team (Latest Contact Info) Description 11/26/2023 7:25 EDT - 11/26/2023 23:59 EDT Hospital Encounter [facility] OBGYN Services - [address] [address] Encounter for assisted reproductive fertility cycle Discharge [...] skin once when directed. 1 Each 11/02/2023 25/iron fum/folic/dha (-1 ORAL) Take by mouth [...] Contact Info) Description 01/13/2024 13:15 EST Telemedicine [facility] Reproductive Medicine & Infertility Center - [address] [phone] Layla Reid MD [address] [place] [address], Level 4 [place] [address] documented as of this encounter Procedures Procedure Name Priority Date/Time Associated Diagnosis Comments US BASELINE INVITRO Routine 11/26/2023 7:53 EDT Encounter for assisted reproductive fertility cycle documented in this encounter Results * US BASELINE INVITRO (11/26/2023 7:53 EDT) [...] free fluid visualized Impression ========= Baseline - 69674 with mock as above Follow-up ======== per [...] free fluid visualized Impression ========= Baseline - 68096 with mock as above Follow-up ======== per KIANNA Comment ======== Mock CX 3 Fund 7 transf 6 Z31.83 encounter for assisted reproductive fertility procedure cycle DATE OF SERVICE: 11/26/2023 Lucrecia Land MD [facility] OB ORDERA BLES documented in this encounter Visit Diagnoses Diagnosis Encounter for assisted reproductive fertility cycle Encounter for assisted reproductive fertility procedure cycle documented in this encounter Care Teams Automobile Body Repair Supervisor Relationship Specialty Start Date End Date Lisa Mcgregor FNP 26 [facility] [address] [place] [phone] PCP - General 05/05/22 Md Alfaro MD 05/05/22 documented as of this encounter
--- OUTSIDE RECORDS SUMMARY | 2024-01-06 08:22 | XMS_ITS | Encounter Summary ---
Author Organization [facility] Address [address] [place] [address] Care Team Providers Care Wildlife Officer Name Role Phone Lisa Mcgregor [facility] Primary Care Provider [phone] Md MICHAELA Alfaro Unavailable Unavailable Encounter Details Date Type Department Care Team (Late st Contact Info) Description 12/03/2023 Documentation Visit [facility] Reproductive Medicine & Infertility Center - [address] [address] Lucrecia Land MD 111 [facility], Level 4 [place] [phone] Social History Tobacco Use Types Packs/Day Years [...] Progress Notes * Lucrecia Land MD - 12/03/2023 1011 EDT IVF Plan Note Cycle type: Antag, ICSI (TESE sample) Med day 8 Tiny Juarez's labs and IVF plan reviewed with attending Dr. Reid. 11/26/2023 11/29/2023 12/01/2023 12/03/2023 IVF FLOWSHEET (USE FORM) Medications: RX Day Baseline 4 6 8 Medications: RX Date 11/26/2023 11/29/2023 12/01/2023 12/03/2023 Medications: Use RX HMG Start 1 1 1 Medications: Use RX FSH 2 3 3 Labs: E2 13 31 124 392 Labs: P4 0.4 Uterus: Endometrial Thickness 4 Uterus: Trilaminar No Uterus: Endometrial Cavity Fluid No Right Ovary: Follicle <10MM 10 Left Ovary: Follicle <10MM #2 6 Please contact the patient with the following plan: Continue Gonal F 225u and Menopur 75u Start antagonist tomorrow Scan and labs on Wednesday Lucrecia Land MD Reproductive Endocrinology and Infertility Fellow ([id number]) [facility] documented in this encounter Plan of Treatment Upcoming Encounters Date Type Department Care Team (Late st Contact Info) Description 01/13/2024 13:15 EST Telemedicine [facility] Reproductive Medicine & Infertility Center - [address] [phone] Layla Reid MD 111 [facility], Level 4 [place] [phone] documented as of this encounter Visit Diagnoses Not on filedocumented in this encounter Care Teams Wildlife Officer Relationship Specialty Start Date End Date Lisa Mcgregor FNP 26 [facility] [address] [place] [phone] PCP - General 05/05/22 Md Alfaro MD 05/05/22 documented as of this encounter
--- OUTSIDE RECORDS SUMMARY | 2024-01-06 08:22 | XMS_ITS | Encounter Summary ---
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 (Routine/Next Available) - Authorization Not Required Specialty Diagnoses / Procedures Referred By Jalil quiñones Referred To Contact Diagnoses Encounter for assisted reproductive fertility cycle Procedures US TRANSIT VEHICLE INSPECTOR EXAM (KIANNA ONLY) Lucrecia Land MD [address] [address] Referral ID Status Reason Start Date Expiration Date Visits Requested Visits Authorized [id number] Authorization Not Required 11/01/2023 4 4 Reason for Visit * MUSEUM EXHIBIT TECHNICIAN (Routine/Next Available) - Authorization Not Required Specialty Diagnoses / Procedures Referred By Jalil quiñones Referred To Contact Diagnoses Encounter for assisted reproductive fertility cycle Procedures US TRANSIT VEHICLE INSPECTOR EXAM (KIANNA ONLY) Lucrecia Land MD [address] [address] Referral ID Status Reason Start Date Expiration Date Visits Requested Visits Authorized [id number] Authorization Not Required 11/01/2023 4 4 Encounter Details Date Type Department Care Team (Latest Contact Info) Description 12/05/2023 8:34 EDT - 12/05/2023 23:59 EDT Hospital Encounter [facility] OBGYN Services - [address] [address] Encounter for assisted reproductive fertility cycle Discharge [...] Contact Info) Description 01/13/2024 13:15 EST Telemedicine [facility] Reproductive Medicine & Infertility Center - [address] [address] Layla Reid MD [address] [place] [address], [address] 4 [place] [address] documented as of this encounter Procedures Procedure Name Priority Date/Time Associated Diagnosis Comments US TRANSIT VEHICLE INSPECTOR EXAM (KIANNA ONLY) Routine 12/05/2023 8:52 EDT Encounter for assisted reproductive fertility cycle documented in this encounter Results * US TRANSIT VEHICLE INSPECTOR EXAM (KIANNA ONLY) (12/05/2023 8:52 EDT) Anatomical [...] DATE OF SERVICE: 12/05/2023 Lucrecia Land MD [facility] OB ORDERA BLES documented in this encounter Visit Diagnoses Diagnosis Encounter for assisted reproductive fertility cycle Encounter for assisted reproductive fertility procedure cycle documented in this encounter Care Teams Technical Applications Specialist Relationship Specialty Start Date End Date Lisa Mcgregor FNP [address] [place] [phone] PCP - General 05/05/22 Md Alfaro MD 05/05/22 documented as of this encounter
--- OUTSIDE RECORDS SUMMARY | 2024-01-06 08:22 | XMS_ITS | Encounter Summary ---
Author Organization [facility] Address [address] [place] [address] Care Team Providers Care Field Instructor Name Role Phone Lisa Mcgregor [facility] Primary Care Provider [phone] Md MICHAELA Alfaro Unavailable Unavailable Encounter Details Date Type Department Care Team (Late st Contact Info) Description 02/17/2023 Lab Requisition [facility] Pathology & Laboratory Medicine [address] [phone] Tatyana Daniels MD [address] [place] [address] [place] [address] Encounter for other general examination Social History Tobacco Use Types Packs/Day Years [...] Description 01/13/2024 13:15 EST Telemedicine [facility] Reproductive Medicine & Infertility Center [address] [address] Layla Reid MD 111 [facility], Level 4 [place] [address] documented as of this encounter Procedures Procedure Name Priority Date/Time Associated Diagnosis Comments PAP TEST Today 02/16/2023 15:30 EST Encounter for other general examination HPV DNA DETECTION WITH GENOTYPING, PCR Today 02/16/2023 15:30 EST Encounter for other general examination documented in this encounter Results * HUMAN PAPILLOMAVIRUS (HPV) DETECTION-HIGH RISK TYPES (02/16/2023 15:30 EST) HPV other High Risk types, PCR Negative Negative 02/26/2023 17:29 [facility] Comment:No E6 or E7 mRNA is detected from HPV types 16,18,31,33,35,39,45,51,52,56,58,59,66, and 68 by unit controller mediated amplification. Pap Test CERVIX UTERI STRUCTURE / Unknown 02/16/2023 15:30 EST 02/24/2023 15:20 EST Tatyana Daniels MD MICROBIOLOGY - GENER AL ORDERABLES [facility] [address] [place] [address] * PAP TEST (02/16/2023 15:30 EST) Specimens A. Cervix and/or Endocervix , ThinPrep Imaging System with Manual Evaluation 02/26/2023 17:29 EST [facility] Specimen Adequacy Satisfactory for Evaluation - transformation zone component absent 02/26/2023 17:29 [facility] General Categorization Negative for intraepithelial lesion or malignancy 02/26/2023 17:29 [facility] Descriptive Diagnosis Shift in annia present suggestive of bacterial vaginosis. 02/26/2023 17:29 [facility] Attestation . 02/26/2023 17:29 [facility] at 1729 Clinical History See below 02/27/20 17:29 EST [facility] HPV The result for the Human Papillomavirus (HPV) Detection-High Risk Types is Negative. No E6 or E7 mRNA is detected from HPV types 16,18,31,33,35,39 ,45,51,52,56,58,5 9,66, and 68 by unit controller mediated amplification.Leyda ting was performed on specimen [id number] and was resulted on 02/26/2023 1729 EST by DEIRDRE, LAB INSTRUMENT RESULTS IN 02/26/2023 17:29 [facility] Performing Lab [facility] 02/26/2023 17:29 [facility] Scanned Images 02/26/2023 17:29 [facility] Pap Test CERVIX UTERI STRUCTURE / Unknown 02/16/2023 15:30 EST 02/17/2023 13:40 EST Tatyana Daniels MD PATHOLOGY ORDERABLES [facility] [address] [place] [address] documented in this encounter Visit Diagnoses Diagnosis Encounter for other general examination documented in this encounter Care Teams Field Instructor Relationship Specialty Start Date End Date Lisa Mcgregor FNP [address] [place] [phone] PCP - General 05/05/22 Md Alfaro MD 05/05/22 documented as of this encounter
--- OUTSIDE RECORDS SUMMARY | 2024-01-06 08:22 | XMS_ITS | Encounter Summary ---
Author Organization [facility] Address [address] [place] [address] Care Team Providers Care Student Finance Specialist Name Role Phone BalbirRaniy [facility] Primary Care Provider [phone] Md MICHAELA Alfaro Unavailable Unavailable Reason for Visit * Reason Comments Procedure IVF monitoring Encounter Details Date Type Department Care Team (Late st Contact Info) Description 12/07/2023 8:00 EDT Procedure visit [facility] Center Reproductive Medicine & Infertility Center - [facility] [address] [place], [place] [phone] Aurora Hinton MD 111 [facility], [facility] 4 [place] [address] Encounter for assisted reproductive fertility [...] as of this encounter Progress Notes * Fredi Shi MA - 12/07/2023 0800 EDT Blood drawn via left hand using a butterfly needle. Pt tolerated procedure well. Pressure and 2x2 applied, secured with paper tape. 1 SST tube(s) sent to lab per order(s). I was supervised by Dr. Hinton (Attending) who was present and immediately available in the office suite FREDI SHI MA 12/07/2023 8:07 * Lucrecia Land MD - 12/07/2023 0800 EDT IVF Plan Note Cycle type: Antag, ICSI (TESE sample) Med day 12 Tiny Juarez's labs and IVF plan reviewed [...] Ovary: Follicle <10MM #2 6 12/05/2023 12/07/2023 IVF FLOWSHEET (USE FORM) Medications: RX Day 10 12 Medications: RX Date 12/05/2023 12/07/2023 Medications: Use RX HMG Start 1 1 Medications: Use RX FSH 3 2 Medications: RX Antagon Start 12/04/2023 12/07/2023 Labs: E2 1060 2079 Labs: P4 0.7 0.8 Uterus: Endometrial Thickness 7 7 Uterus: Trilaminar Yes Yes Uterus: Endometrial Cavity Fluid No No Right Ovary: Follicle Size 1 13 mm 15 mm Right Ovary: Follicle Size 2 14 Right Ovary: Follicle Size 3 14 mm Right Ovary: Follicle Size 4 14 mm Right Ovary: Follicle Size 5 13 mm Right Ovary: Follicle Size 6 13 mm Right Ovary: Follicle Size 7 13 mm Right Ovary: Follicle Size 8 12 mm Right Ovary: Follicle Size 9 11 mm Right Ovary: Follicle Size 10 11 mm Right Ovary: Follicle <10MM 10 5 Left Ovary: Follicle Size 11 14 mm Left Ovary: Follicle Size 12 14 mm Left Ovary: Follicle Size 13 13 mm Left Ovary: Follicle Size 15 13 mm Left Ovary: Follicle Size 16 13 mm Left Ovary: Follicle Size 18 13 mm Left Ovary: Follicle Size 19 13 mm Left Ovary: Follicle Size 20 -- Left Ovary: Follicle <10MM #2 10 -- Please contact patient with the following plan: Decrease to Gonal F 112.5u and continue Menopur 75u nightly Continue antagonist Please send Lupron trigger Scan and labs on Lucrecia Land MD Reproductive Endocrinology and Infertility Fellow ([id number]) [facility] Attestation statement: I discussed the patient with the resident/fellow at the time of the visit. Iagree with the findings and the plan of care documented in the resident's/fellow's note. Aurora Hinton MD KIANNA Attending documented in this encounter Plan of Treatment Upcoming Encounters Date Type Department Care Team (Late st Contact Info) Description 01/13/2024 13:[address] [facility] Reproductive Medicine & Infertility Center - [address] [address] Layla Reid MD [address] [place] [address], [address] [place] [address] documented as of this encounter Procedures Procedure Name Priority Date/Time Associated Diagnosis Comments PROGESTERONE Routine 12/07/2023 8:07 EDT Encounter for assisted reproductive fertility cycle ESTRADIOL, ADULTS Routine 12/07/2023 8:0 7 EDT Encounter for assisted reproductive fertility cycle documented in this encounter Results * ESTRADIOL, ADULTS (12/16/2023 9:37 EDT) Estradiol 457 See Note pg/mL 12/16/2023 10:55 EDT [facility] Comment: NOTE: FEMALE REFERENCE [...] BLOOD GA S ORDERABLES Performing Organization Address [facility]/State/ZIP Co de Phone Number [facility] [address] [place] [phone] * ESTRADIOL, ADULTS (12/12/2023 7:25 EDT) Estradiol 6,285 See Note pg/mL 12/12/2023 9:32 EDT [facility] Comment: NOTE: FEMALE REFERENCE [...] BLOOD GA S ORDERABLES Performing Organization Address [facility] de Phone Number [facility] [address] [place] [address] * ESTRADIOL, ADULTS (12/11/2023 8:12 EDT) Estradiol 4,364 See Note pg/mL 12/11/2023 11:00 EDT [facility] Comment: NOTE: FEMALE REFERENCE [...] VENOUS BLOOD / Unknown Venipuncture / Unknown 12/11/2023 8:12 EDT 12/11/2023 8:22 EDT Aurora Hinton MD CHEMISTRY & BLOOD GA S ORDERABLES Performing Organization Address [facility] Co de Phone Number [facility] [address] [place] [address] * PROGESTERONE (12/07/2023 8:07 EDT) Progesterone 0.8 See Table ng/mL 12/07/2023 9:22 EDT [facility] Comment: Female Reference Ranges: [...] VENOUS BLOOD / Unknown Venipuncture / Unknown 12/07/2023 8:07 EDT 12/07/2023 8:29 EDT Layla Reid MD CHEMISTRY & BLOOD GAS ORDERABLES [facility] [address] [place] [address] * ESTRADIOL, ADULTS (12/07/2023 8:07 EDT) Estradiol 2,079 See Note pg/mL 12/07/2023 9:22 EDT [facility] Comment: NOTE: FEMALE REFERENCE [...] VENOUS BLOOD / Unknown Venipuncture / Unknown 12/07/2023 8:07 EDT 12/07/2023 8:29 EDT Aurora Hinton MD CHEMISTRY & BLOOD GA S ORDERABLES [facility] [address] [place] [address] documented in this encounter Visit Diagnoses Diagnosis Encounter for assisted reproductive fertility cycle- Primary Encounter for assisted reproductive fertility procedure cycle documented in this encounter Care Teams Student Finance Specialist Relationship Specialty Start Date End Date Lisa Mcgregor FNP 26 [facility] [address] [place] [phone] PCP - General 05/05/22 Md Alfaro MD 05/05/22 documented as of this encounter
--- OUTSIDE RECORDS SUMMARY | 2024-01-06 08:22 | XMS_ITS | Encounter Summary ---
Author Organization [facility] Address [address] [place] [address] Care Team Providers Care Hydrometallurgical Engineer Name Role Phone Lisa Mcgregor [facility] Primary Care Provider [phone] Md MICHAELA Alfaro Unavailable Unavailable Encounter Details Date Type Department Care Team (Late st Contact Info) Description 11/29/2023 Documentation Visit [facility] Reproductive Medicine & Infertility Center - [address] [address] Lucrecia Land MD 111 [facility], Level 4 [place] [phone] Social History Tobacco Use Types Packs/Day Years [...] Progress Notes * Lucrecia Land MD - 11/29/2023 1001 EDT IVF Plan Note Cycle type: Antag, ICSI (TESE sample) Med day 4 Tiny Juarez's labs and IVF plan reviewed with attending Dr. Reid. Component Latest Ref Rng 11/29/2023 Estradiol See Note pg/mL 31 Please contact the patient with the following plan: Please ensure taking medications correctly Increase to Gonal F 225u and continue Menopur 75u Repeat labs only in 2 days Lucrecia Land MD Reproductive Endocrinology and Infertility Fellow ([id number]) [facility] documented in this encounter Plan of Treatment Upcoming Encounters Date Type Department Care Team (Late st Contact Info) Description 01/13/2024 13:15 EST Telemedicine [facility] Reproductive Medicine & Infertility Center - [address] [phone] Layla Reid MD 111 [facility], [facility], Level [address] [place] [phone] documented as of this encounter Visit Diagnoses Not on filedocumented in this encounter Care Teams Hydrometallurgical Engineer Relationship Specialty Start Date End Date Lisa Mcgregor FNP [address] [facility] [address] [place] [phone] PCP - General 05/05/22 Md Alfaro MD 05/05/22 documented as of this encounter
--- OUTSIDE RECORDS SUMMARY | 2024-01-06 08:22 | XMS_ITS | Encounter Summary ---
Author Organization [facility] Address [address] [place] [address] Care Team Providers Care Abrasives Sales Representative Name Role Phone BalbirLisa [facility] Primary Care Provider [phone] Md MICHAELA Alfaro Unavailable Unavailable Encounter Details Date Type Department Care Team (Late st Contact Info) Description 12/11/2023 8:15 EDT Phlebotomy Only [facility] ED Center 2 Phlebotomy [address] [place] [address] Sugar Sampler, [facility] Phlebotomy Encounter for assisted reproductive fertility cycle Social [...] Center Reproductive Medicine & Infertility Center - [facility] [address] [place], [place] [id number] Layla Reid MD [address] [facility], [address] [place] [phone] documented as of this encounter Procedures Procedure Name Priority Date/Time Associated Diagnosis Comments PROGESTERONE Routine 12/11/2023 8:12 EDT Encounter for assisted reproductive fertility cycle ESTRADIOL, ADULTS Routine 12/11/2023 8:1 2 EDT Encounter for assisted reproductive fertility cycle documented in this encounter Results * ESTRADIOL, ADULTS (12/11/2023 8:12 EDT) Estradiol 4,364 See Note pg/mL 12/11/2023 11:00 EDT [facility] Comment: NOTE: FEMALE [...] MD CHEMISTRY & BLOOD GA S ORDERABLES [facility] [address] [place] [address] * PROGESTERONE (12/11/2023 8:12 EDT) Progesterone 1.1 See Table ng/mL 12/11/2023 10:35 EDT [facility] Comment: Female Reference [...] Unknown 12/11/2023 8:12 EDT 12/11/2023 8:22 EDT Layla Reid MD CHEMISTRY & BLOOD GAS ORDERABLES Performing Organization Address [facility]/State/ZIP Co de Phone Number [facility] [address] [place] [address] documented in this encounter Visit Diagnoses Diagnosis Encounter for assisted reproductive fertility cycle Encounter for assisted reproductive fertility procedure cycle documented in this encounter Care Teams Abrasives Sales Representative Relationship Specialty Start Date End Date Lisa Mcgregor FNP [address] [place] [address] [address] [place] [phone] PCP - General 05/05/22 Md Alfaro MD 05/05/22 documented as of this encounter
--- OUTSIDE RECORDS SUMMARY | 2024-01-06 08:22 | XMS_ITS | Encounter Summary ---
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, [employer] Phlebotomy Encounter for assisted reproductive fertility procedure [...] Contact Info) Description 01/13/2024 13:15 EST Telemedicine [facility] Center Reproductive Medicine & Infertility Center - [facility] [address] [place], [place] [phone] Layla Reid MD [address] [facility], [address] [place] [phone] documented as of this encounter Procedures Procedure Name Priority Date/Time Associated Diagnosis Comments ESTRADIOL, ADULTS Routine 12/03/2023 8:4 5 EDT Encounter for assisted reproductive fertility procedure cycle documented in this encounter Results * ESTRADIOL, ADULTS (12/03/2023 8:45 EDT) Estradiol 392 See Note pg/mL 12/03/2023 10:07 EDT [facility] Comment: NOTE: [...] Robb MD CHEMISTRY & BLOOD G ORDERABLES [facility] [address] [place], [place] [address] documented in this encounter Visit Diagnoses Diagnosis Encounter for assisted reproductive fertility procedure cycle documented in this encounter Care Teams Alteration Worker Relationship Specialty Start Date End Date Lisa Mcgregor FNP [address] [facility] [address] [place] [phone] PCP - General 05/05/22 Md Alfaro MD 05/05/22 documented as of this encounter
--- OUTSIDE RECORDS SUMMARY | 2024-01-06 08:22 | XMS_ITS | Encounter Summary ---
Author Organization [facility] Address [address] [place] [address] Care Team Providers Care Outcomes Analyst Name Role Phone BalbirLsia AUTOMATIC DRILL OPERATOR Primary Care Provider [phone] Md MICHAELA Alfaro Unavailable Unavailable Encounter Details Date Type Department Care Team (Late st Contact Info) Description 12/13/2023 7:49 EDT - 12/13/2023 7:58 EDT Hospital Encounter [facility] Reproductive Medicine & Infertility Center - [facility] [address] [place], [place] [phone] Layla Reid MD 111 [facility], [facility] [address] [place] [address] Encounter for assisted reproductive fertility [...] 11/02/2023 12/29/2023 documented as of this encounter Ordered Prescriptions Prescription Sig Dispensed Refills Start Date End Da te estradioL (ESTRACE) 2 mg tablet Take 1 Tablet by mouth 3 times daily. 90 Tablet 12/13/2023 12/29/2023 documented in this encounter Discharge Disposition Disposition Code Departure Means Destination Home or Self Care documented in this encounter Progress Notes * Aleisha Che RN - 12/13/2023 0830 EDT Patient with VSS. Tolerating po. Pain well managed. OOB to void. PIV d/c'd, catheter intact, pressure dressing applied. Discharged home in stable condition with Patient Education Topic: discharge instructions provided Method: Handout and Verbal Taught to: Caregiver and Patient Barriers: None Outcomes: independent documented in this encounter Procedure Notes * Layla Reid MD - 12/13/2023 0830 EDTProcedure(s): FOLLICLE PUNCTURE, RETRIEVAL OF OOCYTE Pre-Procedure Diagnose(s): Encounter for assisted reproductive fertility procedure cycle Post-Procedure Diagnose(s): Encounter for assisted reproductive fertility procedure cycle IVF OOCYTE RETRIEVAL PROCEDURE NOTE Tiny Juarez 1990 Procedure: Ultrasound-guided oocyte retrieval with a single lumen catheter Anesthesia: MAC Attending: Dr. Reid [place] Repairer: Dr. Land Antibiotics: Ancef 2 g IV EBL: 10 cc Urine output: patient spontaneous voided prior to the start of the procedure; bladder was drained x2 by in-and-out cath during the procedure to optimize access to ovaries. Ultrasound Visualization Transvaginal: good Findings: 1. Enlarged ovaries bilaterally consistent with hormone stimulation; retrieval was challenging due to ovarian position as well as patient breathing pattern, which improved somewhat after glycoperrolate and suction 2. Oocytes retrieved: 15 total 3. Endometrium: 7 mm, trilaminar 4. Free Fluid: mild Procedure Details: Informed consent was obtained. An IV was placed by the nursing team and the patient was walked backto the procedure suite with IV fluids running. The patient was placed in the dorsal supine lithotomy position. A time out verification procedure was performed with all members of the procedural, anest hesiology, embryology, and nursing teams present. MAC anesthesia was obtained to an adequate comfort. The patient was then prepped and draped in a usual sterile fashion. A bivalve speculum was placedin the vagina and the cervix was cleansed with sterile saline. The transvaginal ultrasound probe was then placed into the vagina and the stimulated ovaries were visualized. Using a single lumen cathet er the ovarian follicles were sequentially drained and carried to the embryology lab. Flushes of culture media throughout the procedure as well as at the end of the procedure were performed to ensurecollection of all the oocytes. Once all of the follicles were drained, the ultrasound was left in place to allow additional time to assess the cul de sac and there was a moderate amount of simple fluid (2x5 cm on right and 3x3cm on left) without active accumulation. The patient then awoke from sedation without issue and was transferred to the recovery area in stable and satisfactory condition. Condition: stable Disposition: IVF Recovery Room Complications: None Attending Dr. Reid was present and scrubbed for the entirety of the procedure. Jessa Land MD Fellow, Reproductive Endocrinology and Infertility [facility] 12/13/2023 / 9:53 Attestation statement: I was present during the entire procedure during the patient's clinic visit.I agree with the findings and plan of care documented in the above note. Layla Reid MD documented in this encounter Plan of Treatment Upcoming Encounters Date Type Department Care Team (Late st Contact Info) Description 01/13/2024 13:15 EST Telemedicine [facility] Reproductive Medicine & Infertility Center - [address] [address] Layla Reid MD [address] [place] [address], [address] [place] [address] documented as of this encounter Procedures Procedure Name Priority Date/Time Associated Diagnosis Comments POC IVF/KIANNA US GUIDANCE Routine 12/13/2023 7:59 EDT documented in this encounter Results * PROGESTERONE (12/16/2023 9:37 EDT) Progesterone 36.0 See Table ng/mL 12/16/2023 10:55 EDT [facility] Comment: Female Reference [...] Reid MD CHEMISTRY & BLOOD GAS ORDERABLES [facility] [address] [place] [address] * POC IVF/KIANNA GUIDANCE (12/13/2023 7:59 EDT) Narrative 12/13/2023 7:59 EDT This is a non-reportable exam. Layla Reid MD [facility] POC ORDERA BLES documented in this encounter Visit Diagnoses Diagnosis Encounter for assisted reproductive fertility procedure cycle [Z31.83]- Primary Encounter for assisted reproductive fertility procedure cycle documented in this encounter Administered Medications Inactive Administered Medications - up to 3 most recent administrations Medication Order MAR Action Action Date Dose Rate Site ceFAZolin in dextrose (iso-os) piggyback 2 g/100 mL 2,000 mg, intravenous, Administer over 30 Minutes, NOW X1, 1 dose, On 12/13/23 at 0900, Type of Therapy: Prophylaxis, Suspected Indication (Select all that apply): Surgical prophylaxis, ID Consult: No, Routine Given 12/13/2023 8:34 EDT 2,000 mg fentaNYL citrate (PF) injection 50 mcg 50 mcg, intravenous, Once (Without Time Specified), 1 dose, Starting on Wed12/13/23 at 1030, Until Wed12/13/23 at 1032, Routine Given 12/13/2023 10:32 EDT 50 mcg progesterone in oil injection 100 mg 100 mg, intramuscular, DAILY, First dose on Wed12/13/23 at 0900, Until Discontinued, Routine Given 12/13/2023 9:30 EDT 100 mg documented in this encounter Discontinued Medications Medication Sig Discontinue Reason Start Date End Da te norgestimate-ethinyl estradioL (ORTHO-CYCLEN) 0.25-35 mg-mcg per tablet Take 1 Tablet by mouth daily. Take active tabs continuously. Discard inactive tabs (4th row of pills) and begin new pack immediately 10/22/2023 12/13/2023 documented as of this encounter Orders Lab Orders Without Results Count Last Ordered D ate First Ordered Date ESTRADIOL, ADULTS 1 12/13/2023 documented in this encounter Care Teams Outcomes Analyst Relationship Specialty Start Date End Date Lisa Mcgregor FNP [address] [place] [phone] PCP - General 05/05/22 Md Alfaro MD 05/05/22 documented as of this encounter
--- OUTSIDE RECORDS SUMMARY | 2024-01-06 08:22 | XMS_ITS | Encounter Summary ---
Author Organization [facility] Address [address] [place] [address] Care Team Providers Care Veterinary Inspector Name Role Phone BalbirLisa [facility] Primary Care Provider [phone] Md MICHAELA Alfaro Unavailable Unavailable Encounter Details Date Type Department Care Team (Late st Contact Info) Description 11/29/2023 8:45 EDT Phlebotomy Only [facility] ED Center 2 Phlebotomy [address] [place] [address] Plate Cutter, [facility] Phlebotomy Encounter for assisted reproductive fertility [...] Center Reproductive Medicine & Infertility Center - [facility] [address] [place], [place] [phone] Layla Reid MD 111 [facility], [address] [place] [phone] documented as of this encounter Procedures Procedure Name Priority Date/Time Associated Diagnosis Comments ESTRADIOL, ADULTS Routine 11/29/2023 8:4 3 EDT Encounter for assisted reproductive fertility procedure cycle documented in this encounter Results * ESTRADIOL, ADULTS (11/29/2023 8:43 EDT) Estradiol 31 See Note pg/mL 11/29/2023 10:00 EDT [facility] Comment: NOTE: FEMALE REFERENCE [...] Robb MD CHEMISTRY & BLOOD G ORDERABLES [facility] [address] [place], [place] [address] documented in this encounter Visit Diagnoses Diagnosis Encounter for assisted reproductive fertility procedure cycle documented in this encounter Care Teams Veterinary Inspector Relationship Specialty Start Date End Date Lisa Mcgregor FNP [address] [facility] [address] [place] [phone] PCP - General 05/05/22 Md Alfaro MD 05/05/22 documented as of this encounter
--- OUTSIDE RECORDS SUMMARY | 2024-01-06 08:23 | XMS_ITS | Encounter Summary ---
Author Organization [facility] Address [address] [place] [address] Care Team Providers Care Turf And Grounds Supervisor Name Role Phone Md MICHAELA Alfaro Primary Care Provider Erich ble Encounter Details Date Type Department Care Team (Late st Contact Info) Description 02/26/2011 Results Only [facility] Laboratory Services - [facility] ([facility]) [address] [place], [place] [address] Gloria Ceja FNP [address] [place], [place] [address] Social History Tobacco Use Types Packs/Day Years Used Date Smoking Tobacco: Never Assessed Sex and Gender Information Value Date Recorded Sex Assigned at Female 09/07/2023 13:39 EDT Gender Identity Female 09/07/2023 13:39 EDT Sexual Orientation Straight 09/07/2023 13 :39 EDT documented as of this encounter Plan of Treatment Upcoming Encounters Date Type Department Care Team (Late st Contact Info) Description 01/13/2024 13:15 EST Telemedicine [facility] Reproductive Medicine & Infertility Center - [facility] [address] [place] [address] Layla Reid MD 111 [facility], [facility], [address] [place] [phone] documented as of this encounter Procedures Procedure Name Priority Date/Time Associated Diagnosis Comments PAP TEST- RESULT ONLY Routine 02/26/2011 0:00 EST documented in this encounter Results * PAP TEST- RESULT ONLY (02/26/2011 0:00 EST) Pathology Report: CYTOPATHOLOGY REPORT Reports generated via electronic interface contain original data; however they are lacking the format of the original report. Caution should be taken when reading/interpreti ng unformatted reports. Name: ? TINY CHUA ? Accession #: ? [id number] : ? 1990 (Age: 20) ??F ?Collect Date: ? 02/26/2011 Location: ? [facility] ? Receive Date: ? 03/04/2011 Provider: ?GLORIA CEJA [facility] Copy to: ? Specimen/Source: ?Pap Test, Cervix/Endocervix, ThinPrep Imaging System with manual evaluation Last Menstrual Period: ? 02/17/2011 Other: ? Additional clinical information: mild abormalilty ? SPECIMEN ADEQUACY ? Satisfactory for Evaluation - transformation zone component present GENERAL CATEGORIZATION ? Negative for Intraepithelial Lesion or Malignancy INTERPRETATION ? Shift in annia present suggestive of bacterial vaginosis. ? Document reviewed and electronically signed by: ? JEREMI Cary(ASCP) ? Report Date: ??03/10/2011 07:40 End of Report ARACELI CHIU 02/26/2011 03/04/2011 Gloria Ceja SALES DEVELOPMENT REPRESENTATIVE PATHOLOGY ORDERABLES ARACELI [facility] [address] [place] [address] documented in this encounter Visit Diagnoses Not on filedocumented in this encounter Care Teams Turf And Grounds Supervisor Relationship Specialty Start Date End Date Md Alfaro MD PCP - General 08/09/09 05/04/22 documented as of this encounter
--- OUTSIDE RECORDS SUMMARY | 2024-01-06 08:23 | XMS_ITS | Encounter Summary ---
Author Organization [facility] Address [address] [place] [address] Care Team Providers Care Local Government Legislator Name Role Phone Md MICHAELA Alfaro Primary Care Provider Liena ble Encounter Details Date Type Department Care Team (Late st Contact Info) Description 06/06/2013 Results Only [facility] Laboratory Services - [facility] [address] [place], [place] [address] Armond Lockett CNM [address] [place], [place] [address] Social History Tobacco Use Types Packs/Day Years [...] Description 01/13/2024 13:15 EST Telemedicine [facility] Reproductive Medicine & Infertility Center - [facility] [address] [place], [place] [phone] Layla Reid MD 111 [facility], [facility], [address] [place] [phone] documented as of this encounter Procedures Procedure Name Priority Date/Time Associated Diagnosis Comments PAP TEST- RESULT ONLY Routine 06/06/2013 0:00 EDT documented in this encounter Results * PAP TEST- RESULT ONLY (06/06/2013 0:00 EDT) Pathology Report: CYTOPATHOLOGY REPORT Reports generated via electronic interface contain original data; however they are lacking the format of the original report. Caution should be taken when reading/interpreti ng unformatted reports. Name: ? TINY CHUA ? Accession #: ? [id number] : ? 1990 (Age: 23) ??F ?Collect Date: ? 06/06/2013 Location: ? [facility] ? Receive Date: ? 06/08/2013 Provider: ?ARMOND LOCKETT CNM Copy to: ?GLORIA MOORE SQL SERVER DBA DEVELOPER ? Specimen/Source: ?Pap Test, Cervix/Endocervix, ThinPrep Imaging System with manual evaluation Last Menstrual Period: ? 07/21/12 Menstrual/Pregnanc y Status: ? Post ? SPECIMEN ADEQUACY ? Satisfactory for Evaluation - transformation zone component present GENERAL CATEGORIZATION ? Negative for Intraepithelial Lesion or Malignancy ? Document reviewed and electronically signed by: ? JEREMI Milton(ASCP) ? Report Date: ??06/12/2013 13:21 End of Report ARACELI CHIU 06/06/2013 06/08/2013 Armond Lockett CNAllie PATHOLOGY ORDERABLES Performing Organization Address City/State/[facility] Co de Phone Number [facility] [address] [place] [address] documented in this encounter Visit Diagnoses Not on filedocumented in this encounter Care Teams Local Government Legislator Relationship Specialty Start Date End Date Md Alfaro MD PCP - General 08/09/09 05/04/22 documented as of this encounter
--- OUTSIDE RECORDS SUMMARY | 2024-01-06 08:23 | XMS_ITS | Encounter Summary ---
Author Organization [facility] Address [address] [place] [address] Care Team Providers Care Deck Specialist Name Role Phone Lisa Mcgregor [facility] Primary Care Provider [phone] Md MICHAELA Alfaro Unavailable Unavailable Reason for Referral * MEAL PACKER (Routine/Next Available) - Closed Specialty Diagnoses / Procedures Referred By Contac t Referred To Contact Diagnoses Secondary oligomenorrhea Fertility testing Procedures US HYSTEROSONOGRAPHY Elizabeth Ingram DO [facility] CONFERENCE SERVICES DIRECTOR/KIANNA Referral ID Status Reason Start Date Expiration Date Visits Re quested Visits Authorized [id number] Closed 05/13/2022 1 1 Reason for Visit * Reason Comments New Patient Visit Infertility, partner with history of vasectomy * Consult (Routine) - Receiving Office to Obtain Authorization Specialty Diagnoses / Procedures Referred By Contac t Referred To Contact Reproductive Endocrinology and Infertility Diagnoses Encounter for male factor infertility in female patient Female infertility of other origin Tatyana Daniels MD [address] [place] [address] [place] [address] [facility] Kianna [address] [place] [address] Referral ID Status Reason Start Date Expiration Date Visits Requested Visits Authorized [id number] Receiving Office to Obtain Authorization 1 1 Encounter Details Date Type Department Care Team (Latest Contact Info) Description 05/13/2022 13:00 EST Telemedicine [facility] [address] [address] Elizabeth Ingram, Secondary oligomenorrhea (Primary Dx); Acne vulgaris; Encounter for preconception consultation; Fertility testing Social History Tobacco Use Types Packs/Day Years [...] Sign Reading Time Taken Comments Blood Pressure - - Pulse - - Temperature - - Respiratory Rate - - Oxygen Saturation - - Inhaled Oxygen Concentration - - Weight 75.8 kg (167 lb) 05/13/2022 1318 EST Height 154.9 cm (5' 1) 05/13/2022 1318 EST Body Mass Index 31.55 05/13/2022 1318 EST documented in this encounter Progress Notes * Elizabeth Ingram DO - 05/13/2022 1300 EST [facility] Reproductive Medicine Telehealth Visit Chief Complaint Patient presents with ??? New Patient Visit Infertility, partner with history of vasectomy Tiny, 31 y.o. is contacted for an (audio-visual) Telehealth visit. Today's visit was provided through telemedicine conferencing: Using [employer] platform. Consent: The concept of telemedicine?? has been described to the patient. Patient has been informed of theanticipated benefits and possible risks. Patient understands the information provided regarding telemedicine, has had the opportunity to ask questions about this information, and all questions have been answered to patient's satisfaction. Patient consents for the use of telemedicine in his/her medical care and authorizes the transmission of any relevant medical information to providers and their staff involved in patient's medical or mental health care. The location of the patient : Office The location of the provider: Home The following staff and their role did participate in today's encounter visit: (1) Sheila Robb MD, KIANNA Attending (2) Elizabeth Ingram DO, PGY6 KIANNA Fellow HPI: Tiny Juarez is a 31 y.o. 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 Tiny presents alone today for consultation. She reports that she and her would like to conceive together but he had a vasectomy performed in 2019. He does not have prior proven fertility prior to this to Tiny's knowledge. They had a consult with Urology at [facility] to discuss vasectomy reversal but this is cost prohibitive for them. They would like to discuss IVF as an alternative. She reports that her partner underwent a SA in the past which demonstrated azoospermia. Tiny has a 9 year old son conceived with a prior partner. This was an unplanned . She delivered via full term and denies complications during her . She reports that she has some cycle irregularity. She reports having regular monthly menses during her 20s but she experienced some weight gain and cycles spaced, sometimes going up to 120 days without menses. She reports she has lost ~25lbs and her cycles are now more regular, occurring every 35-40 days. She reports significant issues with acne but denies hirsutism, galactorrhea, vasomotor symptoms, or vaginal dryness. Her only work-up up to this point was a TSH of 2.74 in January 2021. 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 They live in [place], [place]. Menstrual and Endocrine History LMP Patient's last menstrual period was 05/13/2022. Menses regular Shortest Interval 35 days Longest Interval 40 days Duration of flow 4-5 days Heavy Menses no Dysmenorrhea Occassional Amenorrhea Yes, up to 120 days in the past but not recently Hirsutism No but lots of issues with acne Galactorrhea no Obstetrical History OB History Para Term AB Living 1 1 1 1 SAB IAB Ectopic Multiple Live Births # Outcome Date GA Lbr Chavo/2nd Weight Sex Delivery Anes PTL Lv 1 Term 2014 Vag-Spont Gynecologic History Last PAP 2022, thinks it was normal Previous abdominal or pelvic surgery no Pelvic Pain no Endometriosis no Hot Flashes no Abnormal Pap no Cervix Cryo/cone no STD Genital herpes, no outbreak in several years PID no Infertility and Endocrine Studies BBT no Ovulation Predictor Kit no HSG no Laparoscopy no Hormonal Studies no Semen analysis Yes, azospermia Other Studies no Meds no Other Therapies no Antral Follicle Count no Sexual History Dyspareunia no Couple is having intercourse with adequate frequency to maximize chance of conception N/A Use of Lubricant no Family History Thyroid Problems no Congenital abnormalities no Developmental delay Son has autism, brother with Asperger's Genetic disorders no Age Mother Underwent Menopause Not assessed PMH PSH Past Medical History: Diagnosis Date ??? Acne vulgaris Past Surgical History: Procedure Laterality Date ??? WISDOM TOOTH EXTRACTION Social History Family history Social History Tobacco Use ??? Smoking status: Never ??? Smokeless tobacco: Never Substance Use Topics ??? Alcohol use: Not Currently ??? Drug use: Yes Types: Marijuana Comment: occassional Family History Problem Relation Age of Onset ??? Diabetes Mother ??? Breast Cancer Paternal Grandmother diagnosed in 50s or 60s Medications No current outpatient medications on file prior to visit. No current facility-administered medications on file prior to visit. Allergies Allergies Allergen Reactions ??? Augmentin [Amoxicillin-Pot Clavulanate] Rash Review of Systems CONFERENCE SERVICES DIRECTOR ROS Complete: Negative except as above. 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 Wt Readings from Last 1 Encounters: 05/13/22 75.8 kg (167 lb) BMI: Body mass index is 31.55 kg/m??. Gen: Appears well, no acute distress. Partner not present. Assessment: 31 y.o. female who presents with male factor infertility in the setting of partner with prior vasectomy and oligomenorrhea/clinical hyperandrogenism. Plan: Tiny was seen today for new patient visit. Diagnoses and all orders for this visit: Secondary oligomenorrhea - TSH; Future - 17 OH-PROGESTERONE; Future - DHEA SULFATE; Future - TESTOSTERONE, TOTAL AND FREE; Future - PROLACTIN; Future - FSH; Future - ESTRADIOL, ADULTS; Future - US HYSTEROSONOGRAPHY; Future Acne vulgaris - 17 OH-PROGESTERONE; Future - DHEA SULFATE; Future - TESTOSTERONE, TOTAL AND FREE; Future Encounter for preconception consultation - RUBELLA IGG ANTIBODY; Future - MEASLES IGG AB; Future Fertility testing - ANTIMULLERIAN HORMONE ([facility]) REPROSOURCE; Future - US HYSTEROSONOGRAPHY; Future Reviewed Mukul's clinical course as detailed above. We discussed options for family building in the setting of prior vasectomy to include vasectomy reversal, IVF/ICSI using TESE sperm, or use of donor sperm. I recommended referral to Dr. Arsalan Kenyon of Reproductive Urology to discussthese options more in depth which she was accepting of. We discussed that if sperm is retrieved viaTESE was performed that less invasive fertility treatments would not be feasible due to low numbersof sperm available. We discussed the benefit of donor sperm in that conception could be attempted with less invasive measures, specifically IUI. At this time, she does not feel use of donor sperm is an acceptable strategy for them and is most interested in IVF with use of TESE sperm. We discussed IVF in detail. We reviewed the medications, monitoring, and procedures involved in this. We reviewed the cost of IVF at our center of $7500 per fresh cycle and $3500 per frozen embryo transfer cycle as well as annual embryos storage fees. We reviewed the 10 to 12-month wait list for IVF at our center. They would like to be added to the IVF wait list at this time. We reviewed criteriafor being added to the work-up complete wait list to include AMH and uterine cavity eval as well asID panel done for both partners within 1 year of IVF cycle. She anticipates she will start her menses in the next 1-2 days and will message with CD#1 to schedule her HyCoSy. We reviewed that there can be some procedure related cramping and recommended she take 600 to 800 mg of ibuprofen approximately 1 hour prior to the procedure. Additionally, we discussed that the ability to retrieve sperm via TESE would be a pre-requisite for being able to perform IVF. Recommended additional evaluation in the setting of patient's oligomenorrhea to include a repeat TSH, prolactin, DHEAS, 17OHP, testosterone and day 3 FSH/E2 which patient was agreeable to. She prefers these be done at [facility], orders faxed. ?? In terms of preconception counseling, recommended she continue to take a vitamin. Will order Rubella and Measles IgG. We discussed the rationale for this, that these viruses can cause significant complications to include congenital abnormalities and the vaccines cannot be administered safely in due to presence of live attenuated virus. Counseled that if she is found to be non-immune, a booster would be recommended and be prevented for at least 1 month after booster. She reports that she had the varicella vaccine series in the past. Lastly, we discussed options for preconception carrier screening to include targeted screening with CF and SMA versus use of a larger expanded carrier panel. She will discuss with her partner and let us know if she would like any testing ordered. Patient discussed and plan of care formulated with Sheila Robb MD, KIANNA Attending. Elizabeth Ingram DO, PGY6 Fellow Reproductive Endocrinology & Infertility [facility] 05/13/2022 * Sheila Robb MD - 05/13/2022 1300 EST Attestation statement: I discussed the patient with the resident/fellow at the time of the visit. Feliciano with the findings and the plan of care documented in the resident's/fellow's note. I directlysupervised this televisit documented in this encounter Plan of Treatment Upcoming Encounters Date Type Department Care Team (Late st Contact Info) Description 01/13/2024 13:15 EST Telemedicine [facility] - [address] [id number] Layla Reid MD [address] [place] [address], [address] [place] [address] documented as of this encounter Results * US HYSTEROSONOGRAPHY (05/21/2022 11:38 EDT) Anatomical Region Laterality Modality Ultrasound 05/21/2022 11:1 9 EDT Narrative 05/21/2022 11:49 EDT Indication ======== HyCoSy for fertility testing, AFC. Considering TESE for IVF; partner s/p vasectomy. Uterus ====== Uterus: ?Appears normal Uterus position: ?? Anteverted Description of uterine malformations: ??None Myometrium: ?Appears normal Endometrium: ?? Thin endometrium Cervix details: ?Normal appearance Uterus length ??84.7 mm Uterus width ?? 41.7 mm Uterus height ??39.6 mm Endometrial thickness, total ?? 2.1 mm Fibroids: ??No fibroids identified Polyps: ?No polyps identified Procedure ======== SIS procedure: risks,benefits and procedure reviewed with the patient. Consent signed. Speculum exam,cervix washed X 3 with betadine. Catheter placed and saline instilled under US observation. Patient tolerated procedure. HyCoSy shows normal cavity with no epithelial or intracavitary lesions and bilateral flow of air bubbles out the tubal ostia and free fluid in cul de sac afterward consistent with bilateral tubal patency. Right Ovary ========= Rt ovary: ??Visualized, normal appearance Rt ovary D1 ?26.6 mm Rt ovary D2 ?30.3 mm Rt ovary D3 ?17.8 mm Rt ovary Vol ?? 7.5 cm cubed Rt ovary other findings: ?? AFC R 20 Left Ovary ======== Lt ovary: ??Visualized, normal appearance Lt ovary D1 ?22.2 mm Lt ovary D2 ?24.0 mm Lt ovary D3 ?19.7 mm Lt ovary Vol ?? 5.5 cm cubed Lt ovary other findings: ?? AFC R 14 Cul de Sac ========= No free fluid visualized Method ====== Saline sonohysterogram. View: Good view Impression ========= Sonohyst T HyCoSy - [id number] + [id number] Normal anteverted uterus, thin endometrium. 3D imaging was utilized. Coronal rendered image of the uterus during saline instillation shows a normal uterine cavity. HyCoSy shows bilateral tubal patency. Normal appearing ovaries, combined AFC R 34. Transvaginal 3D - [id number] I have personally reviewed and adjusted the images for the 3D rendering prior to interpretation. Follow-up ======== with Dr. Ingram Comment ======== Z31.41 encounter for fertility testing,?Ultrasound findings discussed w/patient. DATE OF SERVICE: 05/21/2022 Procedure Note Layla Reid MD - 05/21/2022 Indication ======== HyCoSy for fertility testing, AFC. Considering TESE for IVF; partner s/p vasectomy. Uterus ====== Uterus: Appears normal Uterus position: Anteverted Description of uterine malformations: None Myometrium: Appears normal Endometrium: Thin endometrium Cervix details: Normal appearance Uterus length 84.7 mm Uterus width 41.7 mm Uterus height 39.6 mm Endometrial thickness, total 2.1 mm Fibroids: No fibroids identified Polyps: No polyps identified Procedure ======== SIS procedure: risks,benefits and procedure reviewed with the patient.Consent signed. Speculum exam,cervix washed X 3 with betadine. Catheterplaced and saline instilled under US observation. Patient tolerated procedure. HyCoSy shows normal cavity with no epithelial or intracavitary lesions andbilateral flow of air bubbles out the tubal ostia and free fluid in cul desac afterward consistent with bilateral tubal patency. Right Ovary ========= Rt ovary: Visualized, normal appearance Rt ovary D1 26.6 mm Rt ovary D2 30.3 mm Rt ovary D3 17.8 mm Rt ovary Vol 7.5 cm cubed Rt ovary other findings: AFC R 20 Left Ovary ======== Lt ovary: Visualized, normal appearance Lt ovary D1 22.2 mm Lt ovary D2 24.0 mm Lt ovary D3 19.7 mm Lt ovary Vol 5.5 cm cubed Lt ovary other findings: AFC R 14 Cul de Sac ========= No free fluid visualized Method ====== Saline sonohysterogram. View: Good view Impression ========= Sonohyst T HyCoSy - [id number] + [id number] Normal anteverted uterus, thin endometrium. 3D imaging was utilized. Coronal rendered image of the uterus duringsaline instillation shows a normal uterine cavity. HyCoSy shows bilateral tubal patency. Normal appearing ovaries, combined AFC R 34. Transvaginal 3D - [id number] I have personally reviewed and adjusted the images for the 3D renderingprior to interpretation. Follow-up ======== with Dr. Ingram Comment ======== Z31.41 encounter for fertility testing,?Ultrasound findings discussedw/patient. DATE OF SERVICE: 05/21/2022 Elizabeth Ingram DO IMG US OB ORDERABLE S documented in this encounter Visit Diagnoses Diagnosis Secondary oligomenorrhea- Primary Scanty or infrequent menstruation Acne vulgaris Other acne Encounter for preconception consultation Other procreative management counseling and advice Fertility testing Secondary oligomenorrhea Scanty or infrequent menstruation Fertility testing documented in this encounter Care Teams Deck Specialist Relationship Specialty Start Date End Date Lisa Mcgregor FNP [address] [place] [phone] PCP - General 05/05/22 Md Alfaro MD 05/05/22 documented as of this encounter
--- OUTSIDE RECORDS SUMMARY | 2024-01-06 08:23 | XMS_ITS | Encounter Summary ---
Author Organization [facility] Address [address] [place] [address] Care Team Providers Care Hosiery Mater Name Role Phone Md MICHAELA Alfaro Primary Care Provider Erich rosenbaum Encounter Details Date Type Department Care Team (Late st Contact Info) Description 05/06/2018 Results Only [facility] [phone] Radha De Jesus, [address] [place] [phone] Social History Tobacco Use Types Packs/Day Years [...] Contact Info) Description 01/13/2024 13:15 EST Telemedicine [facility] Reproductive Medicine & Infertility Center - [address] [phone] Layla Reid MD [address] [facility], [address] [place] [phone] documented as of this encounter Procedures Procedure Name Priority Date/Time Associated Diagnosis Comments PAP TEST- RESULT ONLY Routine 05/06/2018 0:00 EST documented in this encounter Results * PAP TEST- RESULT ONLY (05/06/2018 0:00 EST) Pathology Report: CYTOPATHOLOGY REPORT Reports generated via electronic interface contain original data; however they are lacking the format of the original report. Caution should be taken when reading/interpreti ng unformatted reports. Name: ? MANDABRAULIOY Flor ? Accession #: ? [id number] : ? 1990 (Age: 27) ??F ?Collect Date: ? 05/06/2018 Location: ? [facility] ? Receive Date: ? 05/06/2018 Provider: ?RADHA DE JESUS MUNICIPAL FIREFIGHTER Copy to: ?GLORIA MOORE MUNICIPAL FIREFIGHTER ? Specimen/Source: ?Pap Test, Cervix, ThinPrep Imaging System with manual evaluation Last Menstrual Period: ? 04/20/18 Hormonal/Contracep tive Status: ? Yes: xulane patch ? SPECIMEN ADEQUACY ? Satisfactory for Evaluation - transformation zone component present GENERAL CATEGORIZATION ? Negative for Intraepithelial Lesion or Malignancy INTERPRETATION ? Shift in annia present suggestive of bacterial vaginosis. ? Document reviewed and electronically signed by: ? JEREMI Cary(ASCP) ? Report Date: ??05/09/2018 15:06 End of Report [facility] 05/06/2018 05/06/2018 Radha De Jesus MUNICIPAL FIREFIGHTER PATHOLOGY ORDERABLES [facility] [address] [place] [address] documented in this encounter Visit Diagnoses Not on filedocumented in this encounter Care Teams Hosiery Mater Relationship Specialty Start Date End Date Md Alfaro MD PCP - General 08/09/09 05/04/22 documented as of this encounter
--- OUTSIDE RECORDS SUMMARY | 2024-01-06 08:23 | XMS_ITS | Encounter Summary ---
Author Organization [facility] Address [address] [place] [address] Care Team Providers Care Engineering Faculty Name Role Phone Balbir Lisa [facility] Primary Care Provider [phone] Md MICHAELA Alfaro Unavailable Unavailable Reason for Referral * LIBRARIAN (Routine/Next Available) - Closed Specialty Diagnoses / Procedures Referred By Contac t Referred To Contact Diagnoses Secondary oligomenorrhea Fertility testing Procedures US HYSTEROSONOGRAPHY Elizabeth Ingram DO [facility] RACK LOADER/KIANNA Referral ID Status Reason Start Date Expiration Date Visits Re quested Visits Authorized [id number] Closed 05/13/2022 1 1 Reason for Visit * LIBRARIAN (Routine/Next Available) - Closed Specialty Diagnoses / Procedures Referred By Contac t Referred To Contact Diagnoses Secondary oligomenorrhea Fertility testing Procedures US HYSTEROSONOGRAPHY Elizabeth Ingram DO [facility] RACK LOADER/KIANNA Referral ID Status Reason Start Date Expiration Date Visits Re quested Visits Authorized [id number] Closed 05/13/2022 1 1 Encounter Details Date Type Department Care Team (Latest Contact Info) Description 05/21/2022 10:33 EDT - 05/21/2022 23:59 EDT Hospital Encounter [facility] OBGYN Services - Main [place] [address] [place], [place] [address] Secondary oligomenorrhea; Fertility testing Discharge Disposition: Home or Self Care Social [...] :39 EDT documented as of this encounter Discharge Disposition Disposition Code Departure Means Destination Home or Self Care documented in this encounter Miscellaneous Notes * Result Encounter Note - Elizabeth Ingram DO - 05/21/2022 1050 EDT Following [employer] message sent to patient: Marcio Franks, I wanted to let you know that I received the results from your ultrasound study earlier today. Yourovaries and uterus including your endometrial cavity appear normal and both fallopian tubes appear to be open. We also counted up the number of small follicles in the ovaries which helps us predict how you would respond to medications during an IVF cycle and you had a high number of small follicles present which is consistent with excellent ovarian reserve. Please let me know if you have any questions or concerns about these results. Best, Dr. Elizabeth Pardo. DO Juan Jose Reproductive Endocrinology & Infertility [facility] 05/21/2022 documented in this encounter Plan of Treatment Upcoming Encounters Date Type Department Care Team (Late st Contact Info) Description 01/13/2024 13:15 EST Telemedicine [facility] Reproductive Medicine & Infertility Center - [address] [address] Layla Reid MD [address] [place] [address], [address] [place] [address] documented as of this encounter Procedures Procedure Name Priority Date/Time Associated Diagnosis Comments US HYSTEROSONOGRAPHY Routine 05/21/2022 11:38 EDT Secondary oligomenorrhea Fertility testing documented in this encounter Results * US HYSTEROSONOGRAPHY (05/21/2022 [...] view Impression ========= Sonohyst T HyCoSy - [id number] + [id number] Normal anteverted uterus, thin endometrium. 3D imaging was utilized. Coronal rendered image of the uterus during saline instillation shows a normal uterine cavity. HyCoSy shows bilateral tubal patency. Normal appearing ovaries, combined AFC R 34. Transvaginal 3D - [id number] I have personally reviewed and adjusted the [...] view Impression ========= Sonohyst T HyCoSy - [id number] + 91045 Normal anteverted uterus, thin endometrium. 3D imaging was utilized. Coronal rendered image of the uterus duringsaline instillation shows a normal uterine cavity. HyCoSy shows bilateral tubal patency. Normal appearing ovaries, combined AFC R 34. Transvaginal 3D - [id number] I have personally reviewed and adjusted the images for the 3D renderingprior to interpretation. Follow-up ======== with Dr. Ingram Comment ======== Z31.41 encounter for fertility testing,?Ultrasound findings discussedw/patient. DATE OF SERVICE: 05/21/2022 Elizabeth Ingram DO IMG US OB ORDERABLE S documented in this encounter Visit Diagnoses Diagnosis Secondary oligomenorrhea Scanty or infrequent menstruation Fertility testing documented in this encounter Care Teams Engineering Faculty Relationship Specialty Start Date End Date Lisa Mcgregor FNP [address] [place] [phone] PCP - General 05/05/22 Md Alfaro MD 05/05/22 documented as of this encounter
--- OUTSIDE RECORDS SUMMARY | 2024-01-06 08:23 | XMS_ITS | Encounter Summary ---
Author Organization [facility] Address [address] [place] [address] Care Team Providers Care Regulatory Affairs Associate Name Role Phone Md MICHAELA Alfaro Primary Care Provider Unavaila Lisa Yang [facility] Primary Care Provider [phone] Md MICHAELA Alfaro Unavailable Unavailable Encounter Details Date Type Department Care Team (Late st Contact Info) Description 05/26/2019 Lab Requisition [facility] Pathology & Laboratory Medicine [address] [address] Radha De Jesus [address] [place] [phone] Encounter for other general examination Social History [...] 01/13/2024 13:15 EST Telemedicine [facility] [address] [address] Layla Reid MD [address] [facility], [address] 4 [place] [phone] documented as of this encounter Procedures Procedure Name Priority Date/Time Associated Diagnosis Comments PAP TEST Today 05/26/2019 9:30 EDT Encounter for other general examination HPV DNA DETECTION WITH GENOTYPING, PCR Today 05/26/2019 9:30 EDT Encounter for other general examination documented in this encounter Results * HUMAN PAPILLOMAVIRUS (HPV) DETECTION-HIGH RISK TYPES (05/26/2019 9:30 EDT) HPV other High Risk types, PCR Negative Negative 06/05/2019 14:38 EDT [facility] Comment:No E6 or E7 mRNA is detected from HPV types 16,18,31,33,35,39,45,51,52,56,58,59,66, and 68 by head setter mediated amplification. Papanicolaou smear specimen (specimen) CERVIX UTERI STRUCTURE / Unknown 05/26/2019 9:30 EDT 06/02/2019 10:00 EDT Radha De Jesus CLINICAL TECHNICIAN MICROBIOLOGY - GENER AL ORDERABLES [facility] [address] [place] [address] * PAP TEST (05/26/2019 9:30 EDT) Specimens A. Cervix and/or Endocervix, ThinPrep Imaging System with Manual Evaluation 06/05/2019 14:38 EDT [facility] Specimen Adequacy Satisfactory for Evaluation - transformation zone component present Scant due to excessive blood 06/05/2019 14:38 EDT [facility] General Categorization Negative for intraepithelial lesion or malignancy 06/05/2019 14:38 EDT [facility] Attestation . 06/05/2019 14:38 EDT [facility] at 1438 Clinical History NONE 03/30/20 20 14:38 EDT [facility] HPV The result for the Human Papillomavirus (HPV) Detection-High Risk Types is Negative. No E6 or E7 mRNA is detected from HPV types 16,18,31,33,35,39 ,45,51,52,56,58,5 9,66, and 68 by head setter mediated amplification.Leyda ting was performed on specimen [id number] and was resulted on 06/05/2019 1435 EDT by DEIRDRE, LAB INSTRUMENT RESULTS IN 06/05/2019 14:38 EDT [facility] Scanned Images 06/05/2019 14:38 EDT [facility] Papanicolaou smear specimen (specimen) CERVIX UTERI STRUCTURE / Unknown 05/26/2019 9:30 EDT 05/26/2019 15:45 EDT Radha De Jesus CLINICAL TECHNICIAN PATHOLOGY ORDERABLES [facility] [address] [place] [address] documented in this encounter Visit Diagnoses Diagnosis Encounter for other general examination documented in this encounter Care Teams Regulatory Affairs Associate Relationship Specialty Start Date End Date Md Alfaro MD PCP - General 08/09/09 05/04/22 Lisa Mcgregor FNP [address] [place] [phone] PCP - General 05/05/22 Md Alfaro MD 05/05/22 documented as of this encounter
--- OUTSIDE RECORDS SUMMARY | 2024-01-06 08:23 | XMS_ITS | Clinical Summary ---
Author Organization [facility] Address [facility] [place] [address] Care Team Providers Care Qm Nurse Name Role Phone Eleazar Hayes MD Primary Care Provider [phone] Allergies Active Allergy Reactions Criticality Noted Date Comments Amoxicillin-Pot Clavulanate CIS - Hives Medications Medication Sig Dispensed Refills Start Date End Date Status clindamycin-benzoyl peroxide (BENZACLIN) gel 1 Appl(s), Top, QAM after washing face 11/10/2005 Active tretinoin (RETIN-A) 0.1 % cream 1 Appl(s), Top, QHS after washing face 11/10/2005 Active Immunizations Name Administration Dates Next Due Influenza Trivalent, Preservative Free 5 Social History Tobacco Use Types Packs/Day Years Used Date Smoking Tobacco: Never Assessed Sex and Gender Information Value Date Recorded Sex Assigned at Female 10/01/2021 9:10 PM EDT Gender Identity Female 10/01/2021 9:10 PM EDT Sexual Orientation Straight 10/01/2021 9: 10 PM EDT Plan of Treatment Health Maintenance Due Date Last Done Comments HIV screen 05/24/2007 Hepatitis C Screening 05/24/2007 Hepatitis B vaccine (0-59 yrs) (1) 2008 Tetanus/Diphtheria/Pertussis Vaccines (1 - Tdap) 05/23 HPV test 05/24/2019 PAP Smear 05/24/2019 Covid-19 Vaccine (1 - season) 2023 Influenza (Flu) vaccine (1 o f 1 - Influenza standard series) 11/07/2023 12/26/2014 Care Teams Qm Nurse Relationship Specialty Start Date End Date Eleazar Hayes MD [address] [place] [address] PCP - General 01/28/10
--- OUTSIDE RECORDS SUMMARY | 2024-01-06 08:23 | XMS_ITS | Encounter Summary ---
Author Organization [facility] Address [address] [place] [address] Care Team Providers Care Aircraft Engine Technician Name Role Phone BalbirLisa [facility] Primary Care Provider [phone] Md MICHAELA Alfaro Unavailable Unavailable Encounter Details Date Type Department Care Team (Late st Contact Info) Description 05/15/2022 Lab Requisition [facility] Pathology & Laboratory Medicine - [address] [address] Outr Resulting Lab, Provider Social History Tobacco Use Types Packs/Day Years [...] Contact Info) Description 01/13/2024 13:15 EST Telemedicine [facility] [address] [address] Layla Reid MD [address] [place] [address], [address] [place] [phone] documented as of this encounter Procedures Procedure Name Priority Date/Time Associated Diagnosis Comments HOLD SST Today 05/15/2022 11:52 EST HOLD SST Today 05/15/2022 11:52 EST MEASLES IGG AB Today 05/15/2022 11:52 EST PROLACTIN Today 05/15/2022 11:52 EST DHEA SULFATE Today 05/15/2022 11:52 EST ESTRADIOL, ADULTS Today 05/15/2022 11: 52 EST RUBELLA IGG ANTIBODY Today 05/15/2022 11:52 EST FSH Today 05/15/2022 11:52 EST documented in this encounter Results * HOLD SST (05/15/2022 11:52 EST) Hold Hold 05/15/2022 19:01 EST [facility] Blood VENOUS BLOOD / Unknown 05/15/2022 11:52 EST 05/15/2022 18:00 EST Provider Outr Resulting Lab LAB INFO SER VICE AND SUPPORT & PHONE RESULT [facility] [address] [place] [address] * HOLD SST (05/15/2022 11:52 EST) Hold Hold 05/15/2022 19:01 EST [facility] Blood VENOUS BLOOD / Unknown 05/15/2022 11:52 EST 05/15/2022 18:00 EST Provider Outr Resulting Lab LAB INFO SER VICE AND SUPPORT & PHONE RESULT [facility] [address] [place] [address] * FSH (05/15/2022 11:52 EST) FSH 4.6 See Note mIU/mL 05/15/2022 19:13 EST [facility] Blood VENOUS BLOOD / Unknown 05/15/2022 11:52 EST 05/15/2022 18:00 EST Narrative [facility] - 05/15/2022 19:13 EST NOTE: Female FSH Reference Ranges (Menstruating): PHYSIOLOGICAL STATUS ? REFERENCE RANGE ? Follicular (-12 to -4 days): ?? 2.5 - 10.2 mIU/mL Midcycle (-3 to +2 days): ?3.4 - 33.4 mIU/mL Luteal (+4 to +12 days): ? 1.5 - 9.1 mIU/mL Postmenopausal: ?23.0 - 116.3 mIU/mL Reference Ranges for pediatric non-menstruating female patients have not been established. Provider Outr Resulting Lab CHEMISTRY & BLOOD GAS ORDERABLES Performing Organization Address [facility] Co de Phone Number [facility] [address] [place] [phone] * MEASLES IGG AB (05/15/2022 11:52 EST) Measles IgG Ab Positive See Note 05/18/2022 8:57 EDT [facility] Comment:Presence of detectab le measles virus IgG antibodies. Blood VENOUS BLOOD / Unknown 05/15/2022 11:52 EST 05/15/2022 18:00 EST Provider Outr Resulting Lab IMMUNOLOGY A ND SEROLOGY ORDERABLES Performing Organization Address [facility] Co de Phone Number [facility] [address] [place] [address] * PROLACTIN (05/15/2022 11:52 EST) Prolactin 4.8 See Note ng/mL 05/15/2022 19:16 EST [facility] Comment: NOTE: Female Reference Ranges: PHYSIOLOGICAL STATUS ?REFERENCE RANGE ? Postmenopausal ?1.8 - 20.3 ng/mL ?9.7 - 208.5 ng/mL Non- ?2.8 - 29.2 ng/mL Blood VENOUS BLOOD / Unknown 05/15/2022 11:52 EST 05/15/2022 18:00 EST Provider Outr Resulting Lab CHEMISTRY & BLOOD GAS ORDERABLES Performing Organization Address City/State/[facility] Co de Phone Number [facility] [address] [place] [address] * ESTRADIOL, ADULTS (05/15/2022 11:52 EST) Pathologist [facility] Estradiol 28 See Note pg/mL 05/15/2022 19:14 EST [facility] Comment: NOTE: FEMALE REFERENCE RANGES: MENSTRUATING ? By cycle day relative to LH peak Follicular ?(-12 to -4 days) ??20-144 pg/mL Midcycle ?(-3 to +2 days) ?? 64-357 pg/mL Luteal ?(+4 t0 +12 days) ??56-214 pg/mL POSTMENOPAUSAL ?<32 pg/mL *Cross reactivity with Fulvestrant could lead to a falsely elevated estradiol result in patients treated with this drug. Blood VENOUS BLOOD / Unknown 05/15/2022 11:52 EST 05/15/2022 18:00 EST Provider Outr Resulting Lab CHEMISTRY & BLOOD GAS ORDERABLES Performing Organization Address [facility] Co de Phone Number [facility] [address] [place] [address] * DHEA SULFATE (05/15/2022 11:52 EST) DHEA Sulfate 233 96 - 512 ug/dL 05/18/2022 9:16 EDT [facility] Blood VENOUS BLOOD / Unknown 05/15/2022 11:52 EST 05/15/2022 18:00 EST Provider Outr Resulting Lab CHEMISTRY & BLOOD GAS ORDERABLES Performing Organization Address [facility] de Phone Number [facility] [address] [place] [address] * RUBELLA IGG ANTIBODY (05/15/2022 11:52 EST) Rubella IgG Ab Positive See Note 05/18/2022 9:00 EDT [facility] Comment:Positive for IgG ant ibodies to Rubella virus. Blood VENOUS BLOOD / Unknown 05/15/2022 11:52 EST 05/15/2022 18:00 EST Provider Outr Resulting Lab CHEMISTRY & BLOOD GAS ORDERABLES Performing Organization Address [facility] de Phone Number [facility] [address] [place] [address] documented in this encounter Visit Diagnoses Not on filedocumented in this encounter Care Teams Aircraft Engine Technician Relationship Specialty Start Date End Date Lisa Mcgregor FNP [address] [place] [address] [place] [phone] PCP - General 05/05/22 Md Alfaro MD 05/05/22 documented as of this encounter
--- OUTSIDE RECORDS SUMMARY | 2024-01-06 08:23 | XMS_ITS | Encounter Summary ---
Author Organization [facility] [place] [address] Care Team Providers Care Mushroom Farmer Name Role Phone Eleazar Hayes MD Primary Care Provider [phone] Encounter Details Date Type Department Care Team (Latest Contact Info) Description 10/06/2022 1:38 PM EDT - 10/06/2022 11:59 PM EDT Hospital [place] [phone] Family history of seizure in son Discharge Disposition: Home Social History Tobacco Use Types Packs/Day Years Used Date Smoking Tobacco: Never Assessed Sex and Gender Information Value Date Recorded Sex Assigned at Female 10/01/2021 9:10 PM EDT Gender Identity Female 10/01/2021 9:10 PM EDT Sexual Orientation Straight 10/01/2021 9: 10 PM EDT documented as of this encounter Medications at Time of Discharge Medication Sig Dispensed Refills Start Date End Date clindamycin-benzoyl peroxide (BENZACLIN) gel 1 Appl(s), Top, QAM after washing face 11/10/2005 tretinoin (RETIN-A) 0.1 % cream 1 Appl(s), Top, QHS after washing face 11/10/2005 documented as of this encounter Plan of Treatment Pending Results Name Type Priority Associated Diagnoses Date /Time Germline Familial Variant Testing (Confirmatory) Pathology/Cytol ogy Routine Family history of seizure in son 10/06/2022 1:42 PM EDT Scheduled Orders Name Type Priority Associated Diagnoses Orde r Schedule Germline Familial Variant Testing (Confirmatory) Pathology/Cytol ogy Routine Family History Of Seizure In Son 1 Occurrences starting 10/06/2022 until 10/06/2022 documented as of this encounter Visit Diagnoses Diagnosis Family history of seizure in son documented in this encounter Care Teams Mushroom Farmer Relationship Specialty Start Date End Date Eleazar Hayes MD [address] [place] [address] PCP - General 01/28/10 documented as of this encounter
--- OUTSIDE RECORDS SUMMARY | 2024-01-06 08:23 | XMS_ITS | Encounter Summary ---
Author Organization [facility] Address [address] [place] [address] Care Team Providers Care Director Of Real Estate Name Role Phone Md MICHAELA Alfaro Primary Care Provider Erich rosenbaum Encounter Details Date Type Department Care Team (Late st Contact Info) Description 08/08/2009 Results Only [facility] Laboratory Services - [facility] ([facility] [address] [place], [place] [phone] Radha De Jesus, [address] [place] [address] Social History Tobacco Use Types Packs/Day Years [...] Contact Info) Description 01/13/2024 13:15 EST Telemedicine [facility] Reproductive Medicine & Infertility Center - [facility] [address] [place], [place] [phone] Layla Reid MD [address] [facility], [address] [place] [address] documented as of this encounter Procedures Procedure Name Priority Date/Time Associated Diagnosis Comments CYTOPATHOLOGY Routine 08/08/2009 0:00 EDT documented in this encounter Results * CYTOPATHOLOGY (08/08/2009 0:00 EDT) Pathology Report: CYTOPATHOLOGY REPORT ? Reports generated via electronic interface contain original data; ? however they are lacking the format of the original report. ? Caution should be taken when reading/interpreti ng unformatted reports. ? Name: ? TINY CHUA ? Accession #: ? [id number] ? : ? 1990 (Age: 19) ??F ?Collect Date: ? 08/08/2009 ? Location: ? [facility] ? Receive Date: ? 08/09/2009 ? Provider: ?RADHA REINALDO SENIOR PRODUCT ENGINEER ? Copy to: ? Specimen/Source: ?Pap Test, Cervix/Endocervix, ThinPrep Imaging System ? with manual evaluation ? Last Menstrual Period: ? 5/15/10 ? Other: ? Additional clinical information: 1st pap ? SPECIMEN ADEQUACY ? Satisfactory for Evaluation ? - transformation zone component present ? GENERAL CATEGORIZATION ? Negative for Intraepithelial Lesion or Malignancy ? Document reviewed and electronically signed by: ? Loren Toro, CT(ASCP) ? Report Date: ??08/13/2009 16:25 ? End of Report ? [facility] 08/08/2009 08/09/2009 Radha De Jesus SENIOR PRODUCT ENGINEER PATHOLOGY ORDERABLES [facility] [address] [place] [address] documented in this encounter Visit Diagnoses Not on filedocumented in this encounter Care Teams Director Of Real Estate Relationship Specialty Start Date End Date Md Alfaro MD PCP - General 08/09/09 05/04/22 documented as of this encounter
--- OUTSIDE RECORDS SUMMARY | 2024-01-06 08:23 | XMS_ITS | Encounter Summary ---
[place] [address] Care Team Providers Care Tin Flopper Name Role Phone Eleazar Hayes MD Primary Care Provider [phone] Encounter Details Date Type Department Care Team (Late st Contact Info) Description 09/17/2022 Orders [place] [address] Nasreen Dee [facility] [place] [address] Family history of seizure in son (Primary Dx) Social History Tobacco Use Types Packs/Day Years Used Date Smoking Tobacco: Never Assessed Sex and Gender Information Value Date Recorded Sex Assigned at Female 10/01/2021 9:10 PM EDT Gender Identity Female 10/01/2021 9:10 PM EDT Sexual Orientation Straight 10/01/2021 9: 10 PM EDT documented as of this encounter Progress Notes * Nasreen Dee [facility] - 09/17/2022 5:00 PM EDT In follow-up of genetic testing completed in Tiny's son, Seven Juarez, variant resolution testing was offered to Tiny. This testing will be completed using an at-home buccal collection kit that will be sent directly to Tiny from the lab. This testing will aid in the interpretation of Seven's genetic testing and is looking to determine if his gene variants, which are of uncertainclinical significance, were inherited from his mother. The following variants of uncertain significance will be tested. AGO2: c.2542G>A, p.([id number]) SETD1A: c.1364_1366del, p.([id number]) CTCF: c.853A>C, p.([id number]) Nasreen Dee, , [facility] Licensed Genetic Counselor [phone] documented in this encounter Plan of Treatment Pending Results Name Type Priority Associated Diagnoses Date /Time Germline Familial Variant Testing (Confirmatory) Pathology/Cytol ogy Routine Family history of seizure in son 10/06/2022 1:42 PM EDT Scheduled Orders Name Type Priority Associated Diagnoses Orde r Schedule Germline Familial Variant Testing (Confirmatory) Pathology/Cytolo gy Routine Family History Of Seizure In Son Expected: 09/22/2022, Expires: 03/24/2023 documented as of this encounter Visit Diagnoses Diagnosis Family history of seizure in son- Primary documented in this encounter Care Teams Tin Flopper Relationship Specialty Start Date End Date Eleazar Hayes MD [address] [place] [address] PCP - General 01/28/10 documented as of this encounter
--- OUTSIDE RECORDS SUMMARY | 2024-01-06 08:23 | XMS_ITS | Encounter Summary ---
Author Organization [facility] Address [address] [place] [address] Care Team Providers Care Public Health Administrator Name Role Phone Md MICHAELA Alfaro Primary Care Provider Erich rosenbaum Encounter Details Date Type Department Care Team (Late st Contact Info) Description 10/24/2015 Results Only [facility] [phone] Radha De Jesus, [address] [place] [phone] Social History Tobacco Use Types Packs/Day Years [...] Hospital Reproductive Medicine [facility] - [address] [phone] Layla Reid MD [address] [facility], [address] [place] [phone] documented as of this encounter Procedures Procedure Name Priority Date/Time Associated Diagnosis Comments PAP TEST- RESULT ONLY Routine 10/24/2015 0:00 EDT documented in this encounter Results * PAP TEST- RESULT ONLY (10/24/2015 0:00 EDT) Pathology Report: CYTOPATHOLOGY REPORT Reports generated via electronic interface contain original data; however they are lacking the format of the original report. Caution should be taken when reading/interpreti ng unformatted reports. Name: ? ERROLKALEETINY ? Accession #: ? [id number] : ? 1990 (Age: 25) ??F ?Collect Date: ? 10/24/2015 Location: ? [facility] ? Receive Date: ? 10/25/2015 Provider: ?RADHA DE [place] Copy to: ?[facility] ? Specimen/Source: ?Pap Test, Cervix/Endocervix, ThinPrep Imaging System with manual evaluation Last Menstrual Period: ? 09/24/2015 ? SPECIMEN ADEQUACY ? Satisfactory for Evaluation - transformation zone component present GENERAL CATEGORIZATION ? Negative for Intraepithelial Lesion or Malignancy INTERPRETATION ? Shift in annia present suggestive of bacterial vaginosis. ? Document reviewed and electronically signed by: ? KANDIS Milton(ASCP) ? Report Date: ??10/31/2015 11:00 End of Report [facility] 10/24/2015 10/25/2015 Radha De Jesus [place] [facility] PATHOLOGY ORDERABLES [facility] [address] [place] [address] documented in this encounter Visit Diagnoses Not on filedocumented in this encounter Care Teams Public Health Administrator Relationship Specialty Start Date End Date Md Alfaro MD PCP - General 08/09/09 05/04/22 documented as of this encounter
--- OUTSIDE RECORDS SUMMARY | 2024-01-06 08:23 | XMS_ITS | Encounter Summary ---
Author Organization [facility] Address [address] [place] [address] Care Team Providers Care Lens Fabricating Machine Tender Name Role Phone Md MICHAELA Alfaro Primary Care Provider UnavailLisa Jeffrey Primary Care Provider [phone] Md MICHAELA Alfaro Unavailable Unavailable Encounter Details Date Type Department Care Team (Late st Contact Info) Description 01/17/2021 Lab Requisition [facility] Pathology & Laboratory Medicine - [address] [id number] Outr Resulting Lab, Provider Social History Tobacco [...] Contact Info) Description 01/13/2024 13:15 EST Telemedicine [facility] Medicine [facility] Inf[facility] [address] [address] Layla Reid MD [address] [facility], [address] [place] [phone] documented as of this encounter Procedures Procedure Name Priority Date/Time Associated Diagnosis Comments CHLAMYDIA/N. GONORRHOEAE AMPLIFIED NUCLEIC ACID Routine 01/16/2021 14:30 EST documented in this encounter Results * CHLAMYDIA/N. GONORRHOEAE AMPLIFIED RNA (01/16/2021 14:30 EST) Neisseria gonorrhoeae Result Negative Negative 01/20/2021 14:18 EST [facility] Chlamydia trachomatis Result Negative Negative 01/20/2021 14:18 EST [facility] Swab ENTIRE ENDOCERVIX / Unknown 01/16/2021 14:30 EST 01/17/2021 16:58 EST Provider Outr Resulting Lab MICROBIOLOGY - GENERAL ORDERABLES Performing Organization Address City/State/[facility] Co de Phone Number [facility] [address] [place] [address] documented in this encounter Visit Diagnoses Not on filedocumented in this encounter Care Teams Lens Fabricating Machine Tender Relationship Specialty Start Date End Date Md Alfaro MD PCP - General 08/09/09 05/04/22 Lisa Mcgregor FNP [address] [place] [phone] PCP - General 05/05/22 Md Alfaro MD 05/05/22 documented as of this encounter
[2024-01-06 08:45] LABS: HCG Quant, Pregnancy 54 mIU/mL (1-3)
== END 2024-01-06 08:20 | disposition home or self-care (01) ==
LOC: LBO 08:19
PROVIDERS: PCP Nurse Practitioner Family; Visit Provider Obstetrics & Gynecology Obstetrics
DX: O02.81 Inappropriate change in quantitative human chorionic gonadotropin (hCG) in early pregnancy (principal)
CPT/HCPCS: 36415; 84702

== ENCOUNTER 2024-01-13 07:56 | Outpatient (CLI) | payer BC, SELFPAY ==
--- OUTSIDE RECORDS SUMMARY | 2024-01-13 07:57 | XMS_ITS | Referral Summary ---
Author Organization [facility] Address [address] [place] [address] Care Team Providers Care Farmworker Dairy Name Role Phone Lisa Mcgregor HIDE DYER Primary Care Provider [phone] Md MICHAELA Alfaro Unavailable Unavailable Encounters Date Type Department Care Team Description 01/04/2024 Travel 01/04/2024 8:33 EDT - 01/04/2024 12:50 EDT Emergency [facility] Emergency Department - [address] [id number] Kirby Velazquez MD Threatened (Primary Dx) Discharge Disposition: Home or Self Care 01/02/2024 8:30 EDT Phlebotomy Only [facility] Phlebotomy [address] [place], [place] [address] Data Migration Lead, Acc Phlebotomy resulting from assisted reproductive technology in first trimester 12/31/2023 9:00 EDT Phlebotomy Only [facility] Phlebotomy [address] [place], [place] [address] Data Migration Lead, Acc Phlebotomy Encounter for in vitro fertilization 12/29/2023 Telephone [facility] Reproductive Medicine & Infertility Center - [facility] [address] [place], [place] [phone] Lucrecia Land MD Results 12/29/2023 Orders Only [facility] Reproductive Medicine & Infertility Center - [facility] [place] [address] [place] [address] Aleisha Che, RN Encounter for in vitro fertilization (Primary Dx) 12/29/2023 9:00 EDT Phlebotomy Only [facility] 2 Phlebotomy [address] [place] [address] Data Migration Lead, Acc Phlebotomy Encounter for in vitro fertilization 12/27/2023 Orders Only [facility] Reproductive Medicine & Infertility [facility] [address] [place] [address] Aleisha Che, RN Encounter for in vitro fertilization (Primary Dx) 12/27/2023 8:45 EDT Phlebotomy Only [facility] Phlebotomy [address] [place] [address] Data Migration Lead, Acc Phlebotomy Encounter for in vitro fertilization 12/24/2023 Orders Only [facility] Reproductive Medicine & Infertility [address] [address] Aleisha Che, RN Encounter for in vitro fertilization (Primary Dx) 12/23/2023 Documentation Visit [facility] Reproductive Medicine & Infertility [address] [address] Lucrecia Land MD 12/23/2023 9:00 EDT Phlebotomy Only [facility] 2 Phlebotomy [address] [place] [address] Data Migration Lead, Acc Phlebotomy Female infertility 12/20/2023 Documentation Visit [facility] Reproductive Medicine & Infertility [address] [address] Lucrecia Land MD 12/20/2023 9:00 EDT Phlebotomy Only [facility] 2 Phlebotomy [address] [place] [address] Data Migration Lead, Acc Phlebotomy Female infertility 12/16/2023 10:50 EDT - 12/16/2023 10:59 EDT Hospital Encounter [facility] Reproductive Medicine & Infertility [facility] [address] [place], [place] [address] Encounter for assisted reproductive fertility procedure cycle Discharge Disposition: Home or Self Care 12/16/2023 9:15 EDT Phlebotomy Only [facility] [address] [place] [address] Data Migration Lead, Acc Phlebotomy Encounter for assisted reproductive fertility cycle; Encounter for assisted reproductive fertility procedure cycle [Z31.83] 12/16/2023 11:00 EDT - 12/16/2023 23:59 EDT Hospital Encounter [facility] Reproductive Medicine & Infertility [address] [phone] Layla Reid MD Encounter for assisted reproductive fertility procedure cycle (Primary Dx) Discharge Disposition: Home or Self Care 12/14/2023 Telephone [facility] Medicine Infertility [address] [phone] Lucrecia Land MD Results 12/14/2023 Orders Only [facility] Reproductive Medicine & Infertility [address] [phone] Lucrecia Land MD Female infertility (Primary Dx) 12/13/2023 7:59 EDT - 12/13/2023 23:59 EDT Hospital Encounter [facility] [address] [address] Discharge Disposition: Home or Self Care 12/13/2023 8:45 EDT Anesthesia Event [facility] Infertility [address] [address] Amparo Rivera MD Pearce, Laurie Ann, CRNA 12/13/2023 7:49 EDT - 12/13/2023 7:58 EDT Hospital Encounter [facility]ertility [address] [address] Layla Reid MD Encounter for assisted reproductive fertility procedure cycle [Z31.83] (Primary Dx) Discharge Disposition: Home or Self Care 12/12/2023 Documentation Visit [facility] Reproductive Medicine & Infertility [address] [address] Lucrecia Land MD 12/12/2023 7:15 EDT Phlebotomy Only [facility] Phlebotomy [address] [place] [address] Data Migration Lead, Acc Phlebotomy Encounter for assisted reproductive fertility cycle; Encounter for assisted reproductive fertility procedure cycle 12/11/2023 8:15 EDT Phlebotomy Only [facility] 2 Phlebotomy [address] [place] [address] Data Migration Lead, Acc Phlebotomy Encounter for assisted reproductive fertility cycle 12/11/2023 9:10 EDT Procedure visit [facility] Medicine & Infertility [address] [address] Aurora Hinton MD Encounter for assisted reproductive fertility procedure cycle (Primary Dx) 12/11/2023 8:38 EDT - 12/11/2023 23:59 EDT Hospital Encounter [address] [address] Encounter for assisted reproductive fertility cycle Discharge Disposition: Home or Self Care 12/10/2023 Orders Only [facility] Reproductive Medicine & Infertility [address] [address] Aleisha Che, RN 12/09/2023 Orders Only [facility] Reproductive Medicine & Infertility [address] [address] Aleisha Che, RN 12/09/2023 8:00 EDT Procedure visit [facility] Reproductive Medicine & Infertility [address] [address] Sheila Robb MD Encounter for assisted reproductive fertility cycle (Primary Dx) 12/09/2023 7:35 EDT - 12/09/2023 23:59 EDT [facility] [address] [phone] Encounter for assisted reproductive fertility cycle Discharge Disposition: Home or Self Care 12/07/2023 Orders Only [facility] Reproductive Medicine & Infertility [address] [address] Aleisha Che RN 12/07/2023 8:00 EDT Procedure visit [facility] Reproductive Medicine & Infertility [address] [address] Aurora Hinton MD Encounter for assisted reproductive fertility cycle (Primary Dx) 12/07/2023 7:25 EDT - 12/07/2023 23:59 EDT Hospital Encounter [address] [address] Encounter for assisted reproductive fertility cycle Discharge Disposition: Home or Self Care 12/05/2023 7:45 EDT Phlebotomy Only [facility] [address] [place] [address] Data Migration Lead, Acc Phlebotomy Encounter for assisted reproductive fertility procedure cycle; Encounter for assisted reproductive fertility cycle 12/05/2023 9:30 EDT Procedure visit [facility] Reproductive Medicine & Infertility [address] [phone] Cheryl Fuller MD Encounter for assisted reproductive fertility cycle (Primary Dx) 12/05/2023 8:34 EDT - 12/05/2023 23:59 EDT Hospital Encounter [address] [address] Encounter for assisted reproductive fertility cycle Discharge Disposition: Home or Self Care 12/03/2023 Documentation Visit [facility] Reproductive Medicine & Infertility [address] [address] Lucrecia Land MD 12/03/2023 8:45 EDT Phlebotomy Only [facility] 2 Phlebotomy [address] [place] [address] Data Migration Lead, Acc Phlebotomy Encounter for assisted reproductive fertility procedure cycle 12/01/2023 Documentation Visit [facility] Reproductive Medicine & Infertility [address] [address] Lucrecia Land MD 12/01/2023 8:45 EDT Phlebotomy Only [facility] 2 Phlebotomy [address] [place] [address] Data Migration Lead, Acc Phlebotomy Encounter for assisted reproductive fertility procedure cycle 11/29/2023 Telephone [facility] Medicine & Infertility [address] [address] Olena Tucker RN Coordination Of Care 11/29/2023 Documentation Visit [facility] Infertility [address] [address] Lucrecia Land MD 11/29/2023 8:45 EDT Phlebotomy Only [facility] 2 Phlebotomy [address] [place] [address] Data Migration Lead, Acc Phlebotomy Encounter for assisted reproductive fertility procedure cycle 11/26/2023 8:45 EDT Phlebotomy Only [facility] 2 Phlebotomy [address] [place] [address] Data Migration Lead, Acc Phlebotomy Encounter for assisted reproductive fertility procedure cycle 11/26/2023 8:00 EDT Procedure visit [facility] Reproductive Medicine & Infertility [address] [address] Sheila Robb MD Encounter for assisted reproductive fertility procedure cycle (Primary Dx) 11/26/2023 7:25 EDT - 11/26/2023 23:59 EDT Hospital Encounter [facility] Services [address] [address] Encounter for assisted reproductive fertility cycle Discharge Disposition: Home or Self Care 11/02/2023 Orders Only [facility] Reproductive Medicine & Infertility [address] [address] Aleisha Che, CHAPARRO from Last 3 Months Allergies Active Allergy Reactions Criticality Noted Date Comments Amoxicillin-Pot Clavulanate Rash 05/14/19 Medications Medication Sig Dispensed Refills Start Date End Date Status acyclovir (ZOVIRAX) 200 mg capsule Take 2 Capsules by mouth 2 times daily. Active 25/iron fum/folic/dha (-1 ORAL) Take by mouth daily. Active chorionic gonadotropin, human (PREGNYL) 10,000 unit injection Injected 1 mL into the skin once when directed. 1 Each 11/02/2023 Active cholecalciferol, Vitamin D3, 25 mcg (1,000 unit) tablet Take 2 Tablets by mouth daily. Active leuprolide (LUPRON) 1 mg/0.2 mL kit Inject 80 units into the skin 12 hours apart when direct. BILL TO IVF CLINIC PLAN, GLOBAL. 1 Each 12/07/2023 Active menotropins (MENOPUR) 75 unit solution for subcutaneous injection Inject 150 Units into the skin daily. 5 Each 12/09/2023 Active Follitropin Arnoldo (GONAL-F) 1,050 unit recon soln Inject 300 Units into the skin daily. 1 Each 12/10/2023 Active ganirelix (ANTAGON) 250 mcg/0.5 mL syringe Inject 0.5 mL into the skin daily. 2 Each 12/10/2023 Active estradioL (ESTRACE) 2 mg tablet Take 1 Tablet by mouth 3 times daily. 90 Tablet 12/29/2023 Active progesterone in oil 50 mg/mL injection Inject 1 mL into the muscle daily. 3 Each 2 12/29/2023 Active progesterone in oil 50 mg/mL injection Inject 1 mL into the muscle daily. 3 Each 1 11/02/2023 4 Discontinued(Reo rder) estradioL (ESTRACE) 2 mg tablet Take 1 Tablet by mouth 3 times daily. 90 Tablet 12/13/2023 4 Discontinued(Reo rder) oxyCODONE (ROXICODONE) 5 mg immediate release tablet Take 1 Tablet by mouth every 4 hours as needed for up to 5 doses for Pain. Daily Max: 30 mg 5 Tablet 12/14/2023 4 Discontinued Hospital, Clinic, or Other Facility Administered Medication Ordered Dose Route Frequency Start Date End Date Status progesterone in oil injection 100 mg 100 mg IM DAILY 12/13/2023 12/29/2023 Disconti nued Active Problems Problem Noted Date Diagnosed Date [...] Hospital Reproductive Medicine & Infertility Center - [address] [id number] Layla Reid MD [address] [place] [address], [address] [place] [address] Procedures Procedure Name Priority Date/Time [...] Encounter for assisted reproductive fertility cycle US DATA MIGRATION CONSULTANT EXAM (KIANNA ONLY) Routine 12/11/2023 9:36 EDT Encounter for assisted reproductive fertility cycle ESTRADIOL, ADULTS Routine 12/11/2023 8:1 2 EDT Encounter for assisted reproductive fertility cycle PROGESTERONE Routine 12/11/2023 8:12 EDT Encounter for assisted reproductive fertility cycle US DATA MIGRATION CONSULTANT EXAM (KIANNA ONLY) Routine 12/09/2023 7:43 EDT Encounter for assisted reproductive fertility cycle ESTRADIOL, ADULTS Routine 12/07/2023 8:0 7 EDT Encounter for assisted reproductive fertility cycle PROGESTERONE Routine 12/07/2023 8:07 EDT Encounter for assisted reproductive fertility cycle US DATA MIGRATION CONSULTANT EXAM (KIANNA ONLY) Routine 12/07/2023 7:30 EDT Encounter for assisted reproductive fertility cycle US DATA MIGRATION CONSULTANT EXAM (KIANNA ONLY) Routine 12/05/2023 8:52 EDT [...] 3 days Prior ultrasound dating: Not available. Theba-rump length: No pole is identified. IMPRESSION: of unknown location. Differential considerations include non- visualized early intrauterine , non-visualized ectopic , and completed early loss. Follow-up with serial HCG, obstetric ultrasound, and SPECIAL INVESTIGATOR consultation is suggested. Reference: Mandi Falcon, et al. A lexicon for first-trimester US: Society of Radiologists in Ultrasound Consensus Conference recommendations. Radiology 312.2 (2023): [id number]. [id number] Narrative 01/04/2024 10:34 EDT US OB FIRST TRIMESTER (LESS THAN 14 WEEKS) TA AND TV AND LTD DUPLEX ??01/04/2024 9:45 AM SIGNS AND SYMPTOMS/COMMENTS: ??spotting, abnormal HCG COMPARISON: Pelvic ultrasound on 12/16/2023 DUPLEX: Indication for Duplex: Concern for ovarian torsion and/or mass Technique: Color and spectral Doppler ultrasound of the pelvis was performed. Resulting Agency Comment [id number] Procedure Note Romeo Salinas MD - 01/04/2024 US OB FIRST TRIMESTER (LESS THAN 14 WEEKS) TA AND TV AND LTD [id number]/04/2024 9:45 AM SIGNS AND SYMPTOMS/COMMENTS: spotting, abnormal [...] 3 days Prior ultrasound dating: Not available. Theba-rump length: No pole is identified. IMPRESSION: of unknown location. Differential considerations includenon-visualized early intrauterine , non-visualized ectopicpregnancy, and completed early loss. Follow-up with serial HCG,obstetric ultrasound, and SPECIAL INVESTIGATOR consultation is suggested. Reference: Mandi Falcon, et al. A lexicon for first-trimester US:Society of Radiologists in Ultrasound Consensus Conferencerecommendations. Radiology 312.2 (2023): [id number]. [id number] Kirby Velazquez MD IMG US OB ORDERABLE S * HOLD LAVENDER TOP (01/04/2024 9:30 EDT) Hold Hold 01/04/2024 10:45 EDT [facility] Blood VENOUS BLOOD / Unknown Venipuncture / Unknown 01/04/2024 9:30 EDT 01/04/2024 9:33 EDT Kirby Velazquez MD LAB INFO SERVICE AN D SUPPORT & PHONE RESULT [facility] [address] [place] [address] * HOLD GREEN TOP (01/04/2024 9:30 EDT) Hold Hold 01/04/2024 10:45 EDT [facility] Blood VENOUS BLOOD / Unknown Venipuncture / Unknown 01/04/2024 9:30 EDT 01/04/2024 9:33 EDT Kirby Velazquez MD LAB INFO SERVICE AN D SUPPORT & PHONE RESULT Performing Organization Address City/[facility]/ZIP Co de Phone Number [facility] [address] [place], [place] [phone] * HOLD BLUE TOP (01/04/2024 9:30 EDT) Hold Hold 01/04/2024 10:45 EDT [facility] Blood VENOUS BLOOD / Unknown Venipuncture / Unknown 01/04/2024 9:30 EDT 01/04/2024 9:34 EDT Kirby Velazquez MD LAB INFO SERVICE AN D SUPPORT & PHONE RESULT Performing Organization Address [facility] de Phone Number [facility] [address] [place] [address] * (ABNORMAL) QUANT BETA HCG, (01/04/2024 9:30 EDT) Only the most recent of6 resultswithin the time period is included. Beta HCG Quant, 80(H) <5 mIU/mL 01/04/2024 10:11 EDT [facility] Comment: NOTE: : Negative: [...] & BLOOD G ORDERABLES Performing Organization Address [facility]/ZIP Co de Phone Number [facility] [address] [place], [place] [phone] * PROGESTERONE (12/23/2023 9:26 EDT) Only the most recent of8 resultswithin the time period is included. Progesterone 27.9 See Table ng/mL 12/23/2023 10:46 EDT [facility] Comment: Female Reference [...] MD CHEMISTRY & BLOO D GAS ORDERABLES [facility] [address] [place] [address] * ESTRADIOL, ADULTS (12/23/2023 9:26 EDT) Only the most recent of11 resultswithin the time period is included. Estradiol 605 See Note pg/mL 12/23/2023 10:43 EDT [facility] Comment: NOTE: FEMALE REFERENCE [...] MD CHEMISTRY & BLOO D GAS ORDERABLES [facility] [address] [place] [address] * POC IVF/KIANNA US GUIDANCE (12/16/2023 10:50 EDT) Narrative 12/16/2023 10:50 EDT This is a non-reportable exam. Layla Reid MD [facility] US POC ORDERA BLES * POC IVF/KIANNA US GUIDANCE (12/13/2023 7:59 EDT) Narrative 12/13/2023 7:59 EDT This is a non-reportable exam. Layla Reid MD [facility] US POC ORDERA BLES * LH (12/12/2023 7:25 EDT) Luteinizing Hormone 10.5 See Note mIU/mL 12/12/2023 9:39 EDT [facility] Comment: NOTE: Female [...] MD CHEMISTRY & BLOOD GA S ORDERABLES [facility] [address] [place] [address] * US DATA MIGRATION CONSULTANT EXAM (KIANNA ONLY) (12/11/2023 9:36 EDT) Anatomical [...] mild Impression ========= USE (IVF Follicular) - 38753 1. Uterus appears normal with trilaminar endometrium. [...] mild Impression ========= USE (IVF Follicular) - 30187 1. Uterus appears normal with trilaminar endometrium. 2. Ovarian follicles appear to be in late folliculogenesis. 3. Small amount of fluid in the cul de sac. Follow-up ======== Labs today, plan per ART team. Comment ======== N97.8 female infertility, other DATE OF SERVICE: 12/11/2023 Lucrecia Land MD IMG US OB ORDERA REBECCA * US DATA MIGRATION CONSULTANT EXAM (KIANNA ONLY) (12/09/2023 7:43 EDT) Anatomical Region Laterality Modality Ultrasound 12/09/2023 7:45 EDT Narrative 12/09/2023 16:42 EDT Indication ======== Antag on GN .5 Male factor (s/p vasectomy with TESE sample) [...] fluid Impression ========= USE (IVF Follicular) - 52592 1. Anteverted uterus with trilaminar endometrium 2. Stimulated ovaries bilaterally with folliculogenesis as measured above 3. No significant free fluid Follow-up ======== Labs today, plan per KAINNA team Comment ======== Ultrasound findings discussed w/patient. [...] fluid Impression ========= USE (IVF Follicular) - 41785 1. Anteverted uterus with trilaminar endometrium 2. Stimulated ovaries bilaterally with folliculogenesis as measuredabove 3. No significant free fluid Follow-up ======== Labs today, plan per KIANNA team Comment ======== Ultrasound findings discussed w/patient. Z31.83 encounter for assisted reproductive fertility procedure cycle DATE OF SERVICE: 12/09/2023 Lucrecia Land MD IMG US OB RICHARD FERNANDEZ * US DATA MIGRATION CONSULTANT EXAM (KIANNA ONLY) (12/07/2023 7:30 EDT) Anatomical [...] trace Impression ========= USE (IVF Follicular) - 19912 1. Anteverted uterus with trilaminar endometrium 2. [...] trace Impression ========= USE (IVF Follicular) - 52583 1. Anteverted uterus with trilaminar endometrium 2. Early folliculogenesis as measured above 3. No significant free fluid Follow-up ======== Labs today, plan per KIANNA team Comment ======== Z31.83 encounter for assisted reproductive fertility procedure cycle Ultrasound findings discussed w/patient. DATE OF SERVICE: 12/07/2023 Lucrecia Land MD IMG US OB ORDERA REBECCA * US DATA MIGRATION CONSULTANT EXAM (KIANNA ONLY) (12/05/2023 8:52 EDT) Anatomical [...] free fluid visualized Impression ========= Baseline - 00979 with mock as above Follow-up ======== per KIANNA Comment ======== Mock CX 3 Fund 7 transf 6 Z31.83 encounter for assisted reproductive fertility procedure cycle DATE OF SERVICE: 11/26/2023 Procedure Note Sheila Robb MD - 11/26/2023 Indication ======== IVF cycle #1 baseline GN 2/ Uterus ====== Uterus: Appears normal Myometrium: Mild adenomyosis Endometrium: Thin endometrium Endometrial thickness, total 4.3 mm Right Ovary ========= Rt ovary: Visualized, normal appearance Rt ovary other findings: afc 10 Left Ovary ======== Lt ovary: Visualized, normal appearance Lt ovary other findings: afc 6 Cul de Sac ========= No free fluid visualized Impression ========= Baseline - 40867 with mock as above Follow-up ======== per KIANNA Comment ======== Mock CX 3 Fund 7 transf 6 Z31.83 encounter for assisted reproductive fertility procedure cycle DATE OF SERVICE: 11/26/2023 Lucrecia Land MD IMG US OB ORDERA BLES * HEPATITIS C AB W REFLEX TO HCV RNA BY PCR (09/06/2023 10:26 EDT) Hep C Antibody Negative Negative 09/06/2023 12:56 EDT [facility] Blood VENOUS BLOOD / Unknown Venipuncture / Unknown 09/06/2023 10:26 EDT 09/06/2023 10:50 EDT Elizabeth Ingram DO CHEMISTRY & BLOOD G ORDERABLES [facility] [address] [place] [address] from Last 3 Months or Most Recently Relevant to Health Maintenance Care Teams Farmworker Dairy Relationship Specialty Start Date End Date Lisa Mcgregor FNP [address] [facility] [address] [place] [phone] PCP - General 05/05/22 Md Alfaro MD 05/05/22
--- OUTSIDE RECORDS SUMMARY | 2024-01-13 07:57 | XMS_ITS | Encounter Summary ---
Author Organization [facility] Address [address] [place] [address] Care Team Providers Care Transit Police Officer Name Role Phone Lisa Mcgregor [facility] Primary Care Provider [phone] Md MICHAELA Alfaro Unavailable Unavailable Encounter Details [...] Contact Info) Description 01/13/2024 13:15 EST Telemedicine [facility] Rep[facility] Inf[facility] - [address] [address] Layla Reid MD [address] [facility], [address] [place] [address] documented as of this encounter Visit Diagnoses Not on filedocumented in this encounter Care Teams Transit Police Officer Relationship Specialty Start Date End Date Lisa Mcgregor FNP [address] [facility] [address] [place] [phone] PCP - General 05/05/22 Md Alfaro MD 05/05/22 documented as of this encounter
--- OUTSIDE RECORDS SUMMARY | 2024-01-13 07:57 | XMS_ITS | Clinical Summary ---
Author Organization [facility] Address [address] [place] [address] Care Team Providers Care Race Board Attendant Name Role Phone BalbirLisa [facility] Primary Care Provider [phone] Md MICHAELA Alfaro Unavailable Unavailable Allergies Active [...] 8:33 EDT - 01/04/2024 12:[address] [facility] Emergency Department - [facility] [address] [place] [address] Kirby Velazquez MD Threatened (Primary Dx) Discharge Disposition: Home or Self Care 01/04/2024 Travel 01/02/2024 8:30 EDT Phlebotomy Only [facility] ED Center 2 Phlebotomy [address], [place] [address] Medical Billing Manager, Acc Phlebotomy resulting from assisted reproductive technology in first trimester 12/31/2023 9:00 EDT Phlebotomy Only [facility] 2 Phlebotomy [address], [place] [address] Medical Billing Manager, Acc Phlebotomy Encounter for in vitro fertilization 12/29/2023 9:00 EDT Phlebotomy Only [facility] 2 Phlebotomy [address] [place] [address] Medical Billing Manager, Acc Phlebotomy Encounter for in vitro fertilization 12/29/[address] [facility] Reproductive Medicine & Infertility [address] [address] Lucrecia Land MD Results 12/29/2023 Orders Only [facility] Reproductive Medicine & Infertility [address] [address] Aleisha Che, RN Encounter for in vitro fertilization (Primary Dx) 12/27/2023 8:45 EDT Phlebotomy Only [facility] 2 Phlebotomy [address] [place] [address] Medical Billing Manager, Acc Phlebotomy Encounter for in vitro fertilization 12/27/2023 Orders Only [facility] Medicine & Infertility [address] [address] Aleisha Che, RN Encounter for in vitro fertilization (Primary Dx) 12/24/2023 Orders Only [facility] Reproductive Medicine & Infertility [address] [address] Aleisha Che, RN Encounter for in vitro fertilization (Primary Dx) 12/23/2023 9:00 EDT Phlebotomy Only [facility] 2 Phlebotomy [address] [place] [address] Medical Billing Manager, Acc Phlebotomy Female infertility 12/23/[address] [facility] Reproductive Medicine & Infertility [facility] [address] [place] [address] Lucrecia Land MD 12/20/2023 9:00 EDT Phlebotomy Only [facility] 2 Phlebotomy [address] [place] [address] Medical Billing Manager, Acc Phlebotomy Female infertility 12/20/[address] [facility] Reproductive Medicine & Infertility [address] [address] Lucrecia Land MD 12/16/2023 11:00 EDT - 12/16/2023 23:[address] [facility] Reproductive Medicine & Infertility [address] [phone] Layla Reid MD Encounter for assisted reproductive fertility procedure cycle (Primary Dx) Discharge Disposition: Home or Self Care 12/16/2023 10:50 EDT - 12/16/2023 10:[address] [facility] Reproductive Medicine & Infertility [address] [address] Encounter for assisted reproductive fertility procedure cycle Discharge Disposition: Home or Self Care 12/16/2023 9:15 EDT Phlebotomy Only [facility] Center [address] [place] [address] Medical Billing Manager, Acc Phlebotomy Encounter for assisted reproductive fertility cycle; Encounter for assisted reproductive fertility procedure cycle [Z31.83] 12/14/[address] [facility] Reproductive Medicine & Infertility [address] [phone] Lucrecia Land MD Results 12/14/[address] [facility] Reproductive Medicine & Infertility [address] [phone] Lucrecia Land MD Female infertility (Primary Dx) 12/13/2023 8:[address] [facility] Reproductive Medicine & Infertility [address] [phone] Amparo Rivera MD Pearce, Laurie Ann, CRNA 12/13/2023 7:59 EDT - 12/13/2023 23:[address] [facility] Reproductive Medicine & Infertility [address] [id number] Discharge Disposition: Home or Self Care 12/13/2023 7:49 EDT - 12/13/2023 7:58 EDT Hospital Encounter [facility] Medicine & Infertility [address] [phone] Layla Reid MD Encounter for assisted reproductive fertility procedure cycle [Z31.83] (Primary Dx) Discharge Disposition: Home or Self Care 12/12/2023 7:15 EDT Phlebotomy Only [facility] 2 Phlebotomy [address] [place] [address] Medical Billing Manager, Acc Phlebotomy Encounter for assisted reproductive fertility cycle; Encounter for assisted reproductive fertility procedure cycle 12/12/[address] [facility] Reproductive Medicine & Infertility [facility] [address] [place] [address] Lucrecia Land MD 12/11/2023 9:10 EDT Procedure visit [facility] Medicine & Infertility [address] [address] Aurora Hinton MD Encounter for assisted reproductive fertility procedure cycle (Primary Dx) 12/11/2023 8:38 EDT - 12/11/2023 23:59 EDT Hospital Encounter [address] [address] Encounter for assisted reproductive fertility cycle Discharge Disposition: Home or Self Care 12/11/2023 8:15 EDT Phlebotomy Only [facility] 2 Phlebotomy [address] [place] [address] Medical Billing Manager, Acc Phlebotomy Encounter for assisted reproductive fertility cycle 12/10/2023 Orders Only [facility] Reproductive Medicine & Infertility [address] [address] Aleisha Che, CHAPARRO 12/09/2023 8:00 EDT Procedure visit [facility] Reproductive Medicine & Infertility [address] [address] Sheila Robb MD Encounter for assisted reproductive fertility cycle (Primary Dx) 12/09/2023 7:35 EDT - 12/09/2023 23:59 EDT Hospital Encounter [facility] [address] [place] [address] Encounter for assisted reproductive fertility cycle Discharge Disposition: Home or Self Care 12/09/2023 Orders Only [facility] Reproductive Medicine & Infertility [address] [address] Aleisha Che RN 12/07/2023 8:00 EDT Procedure visit [facility] Medicine & Infertility [address] [address] Aurora Hinton MD Encounter for assisted reproductive fertility cycle (Primary Dx) 12/07/2023 7:25 EDT - 12/07/2023 23:59 EDT Hospital Encounter [address] [address] Encounter for assisted reproductive fertility cycle Discharge Disposition: Home or Self Care 12/07/2023 Orders Only [facility] Medicine & Infertility [address] [address] Aleisha Che RN 12/05/2023 9:30 EDT Procedure visit [facility] Medicine & Infertility [address] [address] Cheryl Fuller MD Encounter for assisted reproductive fertility cycle (Primary Dx) 12/05/2023 8:34 EDT - 12/05/2023 23:59 EDT Hospital Encounter [address] [address] Encounter for assisted reproductive fertility cycle Discharge Disposition: Home or Self Care 12/05/2023 7:45 EDT Phlebotomy Only [facility] ED Center 2 Phlebotomy [address] [place] [address] Medical Billing Manager, Acc Phlebotomy Encounter for assisted reproductive fertility procedure cycle; Encounter for assisted reproductive fertility cycle 12/03/2023 8:45 EDT Phlebotomy Only [facility] ED Center 2 Phlebotomy [address] [place] [address] Medical Billing Manager, Acc Phlebotomy Encounter for assisted reproductive fertility procedure cycle 12/03/[address] [facility] Reproductive Medicine & Infertility [address] [place] [address] Lucrecia Land MD 12/01/2023 8:45 EDT Phlebotomy Only [facility] ED Center 2 Phlebotomy [address] [place] [address] Medical Billing Manager, Acc Phlebotomy Encounter for assisted reproductive fertility procedure cycle 12/01/[address] [facility] Reproductive Medicine & Infertility [address] [address] Lucrecia Land MD 11/29/2023 8:45 EDT Phlebotomy Only [facility] ED Center 2 Phlebotomy [address] [place] [address] Medical Billing Manager, Acc Phlebotomy Encounter for assisted reproductive fertility procedure cycle 11/29/2023 Telephone [facility] Reproductive Medicine & Infertility [address] [address] Olena Tucker RN Coordination Of Care 11/29/[address] [facility] Reproductive Medicine & Infertility [address] [address] Lucrecia Land MD 11/26/2023 8:45 EDT Phlebotomy Only [facility] ED Center 2 Phlebotomy [address] [place] [address] Medical Billing Manager, Acc Phlebotomy Encounter for assisted reproductive fertility procedure cycle 11/26/2023 8:00 EDT Procedure visit [facility] Reproductive Medicine & Infertility [address] [address] Sheila Robb MD Encounter for assisted reproductive fertility procedure cycle (Primary Dx) 11/26/2023 7:25 EDT - 11/26/2023 23:[address] [facility] [address] [address] Encounter for assisted reproductive fertility cycle Discharge Disposition: Home or Self Care 11/02/2023 Orders Only [facility] Reproductive Medicine & Infertility [address] [phone] Aleisha Che RN from Last 3 Months Surgical History Surgery [...] Ectopic Multiple Livin g Live Births 1 Date Outcome GA Total Labor Labor/2nd/3rd [...] Center Repro[facility] Inf[facility] Center - [address] [phone] Layla Reid MD [address] [place] [address], [address] [place] [address] Health Maintenance Due Date Last [...] Encounter for assisted reproductive fertility cycle US FORMULA ROOM WORKER EXAM (KIANNA ONLY) Routine 12/11/2023 9:36 EDT Encounter for assisted reproductive fertility cycle ESTRADIOL, ADULTS Routine 12/11/2023 8:1 2 EDT Encounter for assisted reproductive fertility cycle PROGESTERONE Routine 12/11/2023 8:12 EDT Encounter for assisted reproductive fertility cycle US FORMULA ROOM WORKER EXAM (KIANNA ONLY) Routine 12/09/2023 7:43 EDT Encounter for assisted reproductive fertility cycle ESTRADIOL, ADULTS Routine 12/07/2023 8:0 7 EDT Encounter for assisted reproductive fertility cycle PROGESTERONE Routine 12/07/2023 8:07 EDT Encounter for assisted reproductive fertility cycle US FORMULA ROOM WORKER EXAM (KIANNA ONLY) Routine 12/07/2023 7:30 EDT Encounter for assisted reproductive fertility cycle US FORMULA ROOM WORKER EXAM (KIANNA ONLY) Routine 12/05/2023 8:52 EDT [...] 3 days Prior ultrasound dating: Not available. [place]-rump length: No pole is identified. IMPRESSION: of unknown location. Differential considerations include non- visualized early intrauterine , non-visualized ectopic , and completed early loss. Follow-up with serial HCG, obstetric ultrasound, and EQUAL OPPORTUNITY DIRECTOR consultation is suggested. Reference: Mandi Falcon., et al. A lexicon for first-trimester US: Society of Radiologists in Ultrasound Consensus Conference recommendations. Radiology 312.2 (2023): [id number]. [id number] Narrative 01/04/2024 10:34 EDT US OB FIRST TRIMESTER (LESS THAN 14 WEEKS) TA AND TV AND LTD DUPLEX ??01/04/2024 9:45 AM SIGNS AND SYMPTOMS/COMMENTS: ??spotting, abnormal HCG COMPARISON: Pelvic ultrasound on 12/16/2023 DUPLEX: Indication for Duplex: Concern for ovarian torsion and/or mass Technique: Color and spectral Doppler ultrasound of the pelvis was performed. Resulting Agency Comment [id number] Procedure Note Romeo Salinas MD - 01/04/2024 US OB FIRST TRIMESTER (LESS THAN 14 WEEKS) TA AND TV AND LTD [id number]/04/2024 9:45 AM SIGNS AND SYMPTOMS/COMMENTS: spotting, abnormal [...] 3 days Prior ultrasound dating: Not available. [place]-rump length: No pole is identified. IMPRESSION: of unknown location. Differential considerations includenon-visualized early intrauterine , non-visualized ectopicpregnancy, and completed early loss. Follow-up with serial HCG,obstetric ultrasound, and EQUAL OPPORTUNITY DIRECTOR consultation is suggested. Reference: Mandi Falcon., et al. A lexicon for first-trimester US:Society of Radiologists in Ultrasound Consensus Conferencerecommendations. Radiology 312.2 (2023): [id number]. [id number] Kirby Velazquez MD IMG US OB ORDERABLE S * [facility] (01/04/2024 9:30 EDT) Hold Hold 01/04/2024 10:45 EDT [facility] Blood VENOUS BLOOD / Unknown Venipuncture / Unknown 01/04/2024 9:30 EDT 01/04/2024 9:33 EDT Kirby Velazquez MD LAB INFO SERVICE AN D SUPPORT & PHONE RESULT Performing Organization Address City/[facility]/ZIP Co de Phone Number [facility] [address] [place], [place] [address] * HOLD GREEN TOP (01/04/2024 9:30 EDT) Hold Hold 01/04/2024 10:45 EDT [facility] Blood VENOUS BLOOD / Unknown Venipuncture / Unknown 01/04/2024 9:30 EDT 01/04/2024 9:33 EDT Kirby Velazquez MD LAB INFO SERVICE AN D SUPPORT & PHONE RESULT Performing Organization Address [facility]/ZIP Co de Phone Number [facility] [address] [place] [address] * HOLD BLUE TOP (01/04/2024 9:30 EDT) Hold Hold 01/04/2024 10:45 EDT [facility] Blood VENOUS BLOOD / Unknown Venipuncture / Unknown 01/04/2024 9:30 EDT 01/04/2024 9:34 EDT Kirby Velazquez MD LAB INFO SERVICE AN D SUPPORT & PHONE RESULT Performing Organization Address [facility]/ZIP Co de Phone Number [facility] [address], [place] [address] * (ABNORMAL) QUANT BETA HCG, (01/04/2024 9:30 EDT) Only the most recent of6 resultswithin the time period is included. Beta HCG Quant, 80(H) <5 mIU/mL 01/04/2024 10:11 EDT [facility] Comment: NOTE: : Negative: [...] Velazquez MD CHEMISTRY & BLOOD G ORDERABLES [facility] [address] [place] [address] * PROGESTERONE (12/23/2023 9:26 EDT) Only the most recent of8 resultswithin the time period is included. [facility] Signature Progesterone 27.9 See Table ng/mL 12/23/2023 10:46 EDT [facility] Comment: Female Reference Ranges: [...] BLOO D GAS ORDERABLES Performing Organization Address [facility] Co de Phone Number [facility] [address] [place] [address] * ESTRADIOL, ADULTS (12/23/2023 9:26 EDT) Only the most recent of11 resultswithin the time period is included. Estradiol 605 See Note pg/mL 12/23/2023 10:43 EDT [facility] Comment: NOTE: FEMALE REFERENCE [...] BLOO D GAS ORDERABLES Performing Organization Address [facility] de Phone Number [facility] [address] [place] [address] * POC IVF/KIANNA US GUIDANCE (12/16/2023 10:50 EDT) Narrative 12/16/2023 10:50 EDT This is a non-reportable exam. Layla Reid MD [facility] US POC ORDERA BLES * POC IVF/KIANNA US GUIDANCE (12/13/2023 7:59 EDT) Narrative 12/13/2023 7:59 EDT This is a non-reportable exam. Layla Reid MD [facility] US POC ORDERA BLES * LH (12/12/2023 7:25 EDT) Luteinizing Hormone 10.5 See Note mIU/mL 12/12/2023 9:39 EDT [facility] Comment: NOTE: Female Reference [...] MD CHEMISTRY & BLOOD GA S ORDERABLES [facility] [address] [place] [address] * US FORMULA ROOM WORKER EXAM (KIANNA ONLY) (12/11/2023 9:36 EDT) Anatomical [...] mild Impression ========= USE (IVF Follicular) - 09810 1. Uterus appears normal with trilaminar endometrium. [...] mild Impression ========= USE (IVF Follicular) - 99835 1. Uterus appears normal with trilaminar endometrium. 2. Ovarian follicles appear to be in late folliculogenesis. 3. Small amount of fluid in the cul de sac. Follow-up ======== Labs today, plan per ART team. Comment ======== N97.8 female infertility, other DATE OF SERVICE: 12/11/2023 Lucrecia Land MD IMG US OB ORDERA BLES * US FORMULA ROOM WORKER EXAM (KIANNA ONLY) (12/09/2023 7:43 EDT) Anatomical Region Laterality Modality Ultrasound 12/09/2023 7:45 EDT Narrative 12/09/2023 16:42 EDT Indication ======== Antag on GN 5 Male factor (s/p vasectomy with TESE sample) [...] fluid Impression ========= USE (IVF Follicular) - 98553 1. Anteverted uterus with trilaminar endometrium 2. Stimulated ovaries bilaterally with folliculogenesis as measured above 3. No significant free fluid Follow-up ======== Labs today, plan per KIANNA team Comment ======== Ultrasound findings discussed w/patient. Z31.83 encounter for assisted reproductive fertility procedure cycle DATE OF SERVICE: 12/09/2023 Procedure Note Sheila Robb MD - 12/09/2023 Indication ======== Antag on GN .5 Male [...] fluid Impression ========= USE (IVF Follicular) - 94103 1. Anteverted uterus with trilaminar endometrium 2. Stimulated ovaries bilaterally with folliculogenesis as measuredabove 3. No significant free fluid Follow-up ======== Labs today, plan per KIANNA team Comment ======== Ultrasound findings discussed w/patient. Z31.83 encounter for assisted reproductive fertility procedure cycle DATE OF SERVICE: 12/09/2023 Lucrecia Land MD IMG US OB ORDERA BLES * US FORMULA ROOM WORKER EXAM (KIANNA ONLY) (12/07/2023 7:30 EDT) Anatomical [...] trace Impression ========= USE (IVF Follicular) - 12236 1. Anteverted uterus with trilaminar endometrium 2. [...] trace Impression ========= USE (IVF Follicular) - 15950 1. Anteverted uterus with trilaminar endometrium 2. Early folliculogenesis as measured above 3. No significant free fluid Follow-up ======== Labs today, plan per KIANNA team Comment ======== Z31.83 encounter for assisted reproductive fertility procedure cycle Ultrasound findings discussed w/patient. DATE OF SERVICE: 12/07/2023 Lucrecia Land MD IMG US OB ORDERA BLES * US FORMULA ROOM WORKER EXAM (KIANNA ONLY) (12/05/2023 8:52 EDT) Anatomical [...] EDT Indication ======== IVF cycle #1 baseline 04/08 Uterus ====== Uterus: ?Appears normal Myometrium: ?Mild adenomyosis Endometrium: ?? Thin endometrium Endometrial thickness, total ?? 4.3 mm Right Ovary ========= Rt ovary: ??Visualized, normal appearance Rt ovary other findings: ?? afc 10 Left Ovary ======== Lt ovary: ??Visualized, normal appearance Lt ovary other findings: ?? afc 6 Cul de Sac ========= No free fluid visualized Impression ========= Baseline - 27817 with mock as above Follow-up ======== per [...] free fluid visualized Impression ========= Baseline - 61354 with mock as above Follow-up ======== per KIANNA Comment ======== Mock CX 3 Fund 7 transf 6 Z31.83 encounter for assisted reproductive fertility procedure cycle DATE OF SERVICE: 11/26/2023 Lucrecia Land MD IMG OB ORDERA BLES * HEPATITIS C AB W REFLEX TO HCV RNA BY PCR (09/06/2023 10:26 EDT) Hep C Antibody Negative Negative 09/06/2023 12:56 EDT [facility] Blood VENOUS BLOOD / Unknown Venipuncture / Unknown 09/06/2023 10:26 EDT 09/06/2023 10:50 EDT Elizabeth Ingram DO CHEMISTRY & BLOOD G ORDERABLES [facility] [address] [place] [address] from Last 3 Months or Most Recently Relevant to Health Maintenance Care Teams Race Board Attendant Relationship Specialty Start Date End Date Lisa Mcgregor FNP [address] [place] [address] PCP - General 05/05/22 Md Alfaro MD 05/05/22
--- OUTSIDE RECORDS SUMMARY | 2024-01-13 07:58 | XMS_ITS | Encounter Summary ---
Author Organization [facility] Address [address] [place] [address] Care Team Providers Care Director Of People Name Role Phone Lisa Mcgregor [facility] Primary Care Provider Md MICHAELA Alfaro Unavailable Unavailable Reason for Referral * Radiology Services (Routine/Next Available) - New Request Specialty Diagnoses / Procedures Referred By Jalil t Referred To Contact Diagnoses Encounter for assisted reproductive fertility procedure cycle Procedures POC IVF/KIANNA US GUIDANCE Layla Reid MD [address] [address] Referral ID Status Reason Start Date Expiration Date V isits Requested Visits Authorized [id number] New Request 12/16/2023 1 1 Reason for Visit * Radiology Services (Routine/Next Available) - New Request Specialty Diagnoses / Procedures Referred By Contunique quiñones Referred To Contact Diagnoses Encounter for assisted reproductive fertility procedure cycle Procedures POC IVF/KIANNA US GUIDANCE Layla Ried MD [address] [address] Referral ID Status Reason Start Date Expiration Date V isits Requested Visits Authorized [id number] New Request 12/16/2023 1 1 Encounter Details Date Type Department Care Team (Latest Contact Info) Description 12/16/2023 10:50 EDT - 12/16/2023 10:59 EDT Hospital Encounter [facility] Reproductive Medicine & Infertility Center - [address] [address] Encounter for assisted reproductive fertility procedure cycle [...] Contact Info) Description 01/13/2024 13:15 EST Telemedicine [facility] Reproductive Medicine & Infertility Center - [facility] [address] [place] [address] Layla Reid MD [address] [place] [address], [address] [place] [phone] documented as of this encounter Procedures Procedure [...] cycle documented in this encounter Care Teams Director Of People Relationship Specialty Start Date End Date Lisa Mcgregor FNP [address] [facility] [address] [place] [phone] PCP - General 05/05/22 Md Alfaro MD 05/05/22 documented as of this encounter
--- OUTSIDE RECORDS SUMMARY | 2024-01-13 07:58 | XMS_ITS | Encounter Summary ---
Author Organization [facility] Address [address] [place] [address] Care Team Providers Care Aesthetician Name Role Phone BalbirLisa [facility] Primary Care Provider [phone] Md MICHAELA Alfaro Unavailable Unavailable Encounter Details Date Type Department Care Team (Late st Contact Info) Description 12/11/2023 8:15 EDT Phlebotomy Only [facility] ED Center 2 Phlebotomy [address] [place] [address] Copy Supervisor, [facility] Phlebotomy Encounter for assisted reproductive [...] Contact Info) Description 01/13/2024 13:15 EST Telemedicine [facility] Reproductive Medicine & Infertility Center - [facility] [address] [place], [place] [address] Layla Reid MD [address] [facility], [address] [place] [phone] documented as of this encounter Procedures Procedure Name Priority Date/Time Associated Diagnosis Comments PROGESTERONE Routine 12/11/2023 8:12 EDT Encounter for assisted reproductive fertility cycle ESTRADIOL, ADULTS Routine 12/11/2023 8:1 2 EDT Encounter for assisted reproductive fertility cycle documented in this encounter Results * ESTRADIOL, ADULTS (12/11/2023 8:12 EDT) Estradiol 4,364 See Note pg/mL 12/11/2023 11:00 EDT [facility] Comment: NOTE: FEMALE REFERENCE RANGES: [...] MD CHEMISTRY & BLOOD GA S ORDERABLES [facility] [address] [place] [address] * PROGESTERONE (12/11/2023 8:12 EDT) Progesterone 1.1 See Table ng/mL 12/11/2023 10:35 EDT [facility] Comment: Female Reference Ranges: PHYSIOLOGICAL [...] & BLOOD GAS ORDERABLES Performing Organization Address [facility]/State/ZIP Co de Phone Number [facility] [address] [place] [address] documented in this encounter Visit Diagnoses Diagnosis Encounter for assisted reproductive fertility cycle Encounter for assisted reproductive fertility procedure cycle documented in this encounter Care Teams Aesthetician Relationship Specialty Start Date End Date Lisa Mcgregor FNP [address] [place] [address] [address] [place] [phone] PCP - General 05/05/22 Md Alfaro MD 05/05/22 documented as of this encounter
--- OUTSIDE RECORDS SUMMARY | 2024-01-13 07:58 | XMS_ITS | Encounter Summary ---
Author Organization [facility] Address [address] [place] [address] Care Team Providers Care Executive Compensation Analyst Name Role Phone BalbirLisa [employer] Primary Care Provider [phone] Md MICHAELA Alfaro Unavailable Unavailable Reason for Visit * Reason Comments Procedure IVF monitoring Encounter Details Date Type Department Care Team (Late st Contact Info) Description 12/11/2023 9:10 EDT Procedure visit [facility] Center Reproductive Medicine & Infertility Center - [facility] [address] [place], [place] [address] Aurora Hinton MD 111 [facility], [facility] 4 [place] [address] Encounter for assisted reproductive fertility [...] MD Reproductive Endocrinology and Infertility Fellow (PGY7) [facility] Attestation statement: I discussed the patient with [...] Center Reproductive Medicine & Infertility Center - [address] [id number] Layla Reid MD [address] [place] [address], Level 4 [place] [address] documented as of this encounter Results * PROGESTERONE (12/12/2023 7:25 EDT) Progesterone 13.5 See Table ng/mL 12/12/2023 8:53 EDT [facility] Comment: Female Reference Ranges: [...] MD CHEMISTRY & BLOOD GA S ORDERABLES [facility] [address] [place] [address] * LH (12/12/2023 7:25 EDT) Luteinizing Hormone 10.5 See Note mIU/mL 12/12/2023 9:39 EDT [facility] Comment: NOTE: Female Reference [...] MD CHEMISTRY & BLOOD GA S ORDERABLES [facility] [address] [place] [address] documented in this encounter Visit Diagnoses Diagnosis Encounter for assisted reproductive fertility procedure cycle- Primary documented in this encounter Care Teams Executive Compensation Analyst Relationship Specialty Start Date End Date Lisa Mcgregor FNP [address] [place] [address] [address] [place] [phone] PCP - General 05/05/22 Md Alfaro MD 05/05/22 documented as of this encounter
--- OUTSIDE RECORDS SUMMARY | 2024-01-13 07:58 | XMS_ITS | Encounter Summary ---
Author Organization [facility] Address [address] [place] [address] Care Team Providers Care Multiple Drill Operator Name Role Phone BalbirLisa [facility] Primary Care Provider [phone] Md MICHAELA Alfaro Unavailable Unavailable Encounter Details Date Type Department Care Team (Late st Contact Info) Description 12/31/2023 9:00 EDT Phlebotomy Only [facility] ED Center 2 Phlebotomy [address] [place] [address] Sports Book Board Attendant, [facility] Phlebotomy Encounter for in vitro fertilization [...] Contact Info) Description 01/13/2024 13:15 EST Telemedicine [facility] Center Reproductive Medicine & Infertility Center - [facility] [address] [place], [place] [phone] Layla Reid MD 111 [facility], Level 4 [place] [address] documented as of this encounter Procedures Procedure Name Priority Date/Time Associated Diagnosis Comments QUANT BETA HCG, Routine 12/31/2023 9:21 EDT Encounter for in vitro fertilization documented in this encounter Results * (ABNORMAL) QUANT BETA HCG, (12/31/2023 9:21 EDT) Beta HCG Quant, 89(H) <5 mIU/mL 12/31/2023 10:27 EDT [facility] Comment: NOTE: : Negative: [...] Reid MD CHEMISTRY & BLOOD GAS ORDERABLES [facility] [address] [place] [address] documented in this encounter Visit Diagnoses Diagnosis Encounter for in vitro fertilization Encounter for assisted reproductive fertility procedure cycle documented in this encounter Care Teams Multiple Drill Operator Relationship Specialty Start Date End Date Lisa Mcgregor FNP [address] [place] [address] [address] [place] [address] PCP - General 05/05/22 Md Alfaro MD 05/05/22 documented as of this encounter
--- OUTSIDE RECORDS SUMMARY | 2024-01-13 07:58 | XMS_ITS | Encounter Summary ---
Author Organization [facility] Address [address] [place] [address] Care Team Providers Care Director Of Restaurant Name Role Phone Lisa Mcgregor [facility] Primary Care Provider [phone] Md MICHAELA Alfaro Unavailable Unavailable Encounter Details Date Type Department Care Team (Late st Contact Info) Description 12/23/2023 Documentation Visit [facility] Reproductive Medicine & Infertility Center - [address] [address] Lucrecia Land MD 111 [facility], Level 4 [place] [phone] Social History Tobacco Use Types Packs/Day Years [...] Notes * Lucrecia Land MD - 12/23/2023 1044 EDT Luteal support labs, recheck after low [...] MD Reproductive Endocrinology and Infertility Fellow (PGY7) [facility] documented in this encounter Plan of Treatment Upcoming Encounters Date Type Department Care Team (Late st Contact Info) Description 01/13/2024 13:15 EST Telemedicine [facility] Reproductive Medicine & Infertility Center - [address] [phone] Layla Reid MD 111 [facility], Level 4 [place] [phone] documented as of this encounter Visit Diagnoses Not on filedocumented in this encounter Care Teams Director Of Restaurant Relationship Specialty Start Date End Date Lisa Mcgregor FNP 26 [facility] [address] [place] [phone] PCP - General 05/05/22 Md Alfaro MD 05/05/22 documented as of this encounter
--- OUTSIDE RECORDS SUMMARY | 2024-01-13 07:58 | XMS_ITS | Encounter Summary ---
Author Organization [facility] Address [address] [place] [address] Care Team Providers Care Epic Director Name Role Phone BalbirLisa [facility] Primary Care Provider [phone] Md MICHAELA Alfaro Unavailable Unavailable Encounter Details Date Type Department Care Team (Late st Contact Info) Description 12/23/2023 9:00 EDT Phlebotomy Only [facility] ED Center 2 Phlebotomy [address] [place], [place] [phone] Account Liaison, [facility] Phlebotomy Female infertility Social History Tobacco [...] Contact Info) Description 01/13/2024 13:15 EST Telemedicine [facility] Reproductive Medicine & Infertility Center - [facility] [address] [place], [place] [phone] Layla Reid MD [address] [facility] Level 4 [place] [phone] documented as of this encounter Procedures Procedure Name Priority Date/Time Associated Diagnosis Comments PROGESTERONE Routine 12/23/2023 9:26 EDT Female infertility ESTRADIOL, ADULTS Routine 12/23/2023 9:26 EDT Female infertility documented in this encounter Results * PROGESTERONE (12/23/2023 9:26 EDT) Progesterone 27.9 See Table ng/mL 12/23/2023 10:46 EDT [facility] Comment: Female Reference Ranges: [...] BLOO D GAS ORDERABLES Performing Organization Address [facility] Co de Phone Number [facility] [address] [place], [place] [address] * ESTRADIOL, ADULTS (12/23/2023 9:26 EDT) Estradiol 605 See Note pg/mL 12/23/2023 10:43 EDT [facility] Comment: NOTE: FEMALE REFERENCE [...] BLOO D GAS ORDERABLES Performing Organization Address [facility] Co de Phone Number [facility] [address] [place] [address] documented in this encounter Visit Diagnoses Diagnosis Female infertility Female infertility of unspecified origin documented in this encounter Care Teams Epic Director Relationship Specialty Start Date End Date Lisa Mcgregor FNP 26 [facility] [address] [place] [phone] PCP - General 05/05/22 Md Alfaro MD 05/05/22 documented as of this encounter
--- OUTSIDE RECORDS SUMMARY | 2024-01-13 07:58 | XMS_ITS | Encounter Summary ---
Author Organization [facility] Address [address] [place] [address] Care Team Providers Care Band Booker Name Role Phone BalbirRaniy [facility] Primary Care Provider [phone] Md MICHAELA Alfaro Unavailable Unavailable Reason for Visit * Reason Onset Date Comments Results 12/14/2023 Encounter Details Date Type Department Care Team (Late st Contact Info) Description 12/14/2023 Telephone [facility] Reproductive Medicine & Infertility Center - [facility] [place] [facility] [address] [place], [place] [phone] Lucrecia Land MD 111 [facility], Level [address] [place] [address] Results Social History Tobacco Use [...] = 14 11x MII ? ICSI 3x IN 1x E/ZP Day 1: 9x 2PN 2x 3PN Let her know I sent prescription for pain medication and to please call back with worsening/new symptoms. Lucrecia Land MD Reproductive Endocrinology and Infertility Fellow (PGY7) [facility] documented in this encounter Plan of Treatment Upcoming Encounters Date Type Department Care Team (Late st Contact Info) Description 01/13/2024 13:15 EST Telemedicine [facility] Reproductive Medicine & Infertility Center - [address] [phone] Layla Reid MD [address] [place] [address], Level [address] [place] [phone] documented as of this encounter Visit Diagnoses Not on filedocumented in this encounter Care Teams Band Booker Relationship Specialty Start Date End Date Lisa Mcgregor FNP 26 [facility] [address] [place] [phone] PCP - General 05/05/22 Md Alfaro MD 05/05/22 documented as of this encounter
--- OUTSIDE RECORDS SUMMARY | 2024-01-13 07:58 | XMS_ITS | Encounter Summary ---
Author Organization [facility] Address [address] [place] [address] Care Team Providers Care Senior Site Manager Name Role Phone BalbirLisa [facility] Primary Care Provider [phone] Md MICHAELA Alfaro Unavailable Unavailable Encounter Details Date Type Department Care Team (Late st Contact Info) Description 12/20/2023 9:00 EDT Phlebotomy Only [facility] ED Center 2 Phlebotomy [address] [place], [place] [phone] Outside Property Agent, [facility] Phlebotomy Female infertility Social [...] Center Reproductive Medicine & Infertility Center - [facility] [address] [place], [place] [phone] Layla Reid MD 111 [facility] Level 4 [place] [phone] documented as of this encounter Procedures Procedure Name Priority Date/Time Associated Diagnosis Comments PROGESTERONE Routine 12/20/2023 9:33 EDT Female infertility ESTRADIOL, ADULTS Routine 12/20/2023 9:3 3 EDT Female infertility QUANT BETA HCG, Routine 12/20/2023 9:33 EDT Female infertility documented in this encounter Results * PROGESTERONE (12/20/2023 9:33 EDT) [facility] Signature Progesterone 58.6 See Table ng/mL 12/20/2023 13:18 EDT [facility] Comment: Female Reference Ranges: [...] GAS ORDERABLES Performing Organization Address [facility] Co de Phone Number [facility] [address] [place] [address] * ESTRADIOL, ADULTS (12/20/2023 9:33 EDT) Estradiol 188 See Note pg/mL 12/20/2023 11:11 EDT [facility] Comment: NOTE: FEMALE REFERENCE [...] GAS ORDERABLES Performing Organization Address [facility] Co de Phone Number [facility] [address] [place] [address] * QUANT BETA HCG, (12/20/2023 9:33 EDT) Beta HCG Quant, <5 <5 mIU/mL 12/20/2023 10:38 EDT [facility] Comment: NOTE: : Negative: [...] Reid MD CHEMISTRY & BLOOD GAS ORDERABLES [facility] [address] [place] [address] documented in this encounter Visit Diagnoses Diagnosis Female infertility Female infertility of unspecified origin documented in this encounter Care Teams Senior Site Manager Relationship Specialty Start Date End Date Lisa Mcgregor FNP [address] [phone] PCP - General 05/05/22 Md Alfaro MD 05/05/22 documented as of this encounter
--- OUTSIDE RECORDS SUMMARY | 2024-01-13 07:58 | XMS_ITS | Encounter Summary ---
Author Organization [facility] Address [address] [place] [address] Care Team Providers Care Trench Digging Machine Operator Name Role Phone BalbirLisa [facility] Primary Care Provider [phone] Md MICHAELA Alfaro Unavailable Unavailable Encounter Details Date Type Department Care Team (Late st Contact Info) Description 12/05/2023 7:45 EDT Phlebotomy Only [facility] ED Center 2 Phlebotomy [address] [place] [address] Rejector, [facility] Phlebotomy Encounter for assisted reproductive [...] Contact Info) Description 01/13/2024 13:15 EST Telemedicine [facility] Center Reproductive Medicine & Infertility Center - [facility] [address] [place], [place] [address] Layla Reid MD 111 [facility], Level 4 [place] [phone] documented as of this encounter Procedures Procedure Name Priority Date/Time Associated Diagnosis Comments PROGESTERONE Routine 12/05/2023 7:54 EDT Encounter for assisted reproductive fertility cycle ESTRADIOL, ADULTS Routine 12/05/2023 7:5 4 EDT Encounter for assisted reproductive fertility procedure cycle documented in this encounter Results * PROGESTERONE (12/05/2023 7:54 EDT) Progesterone 0.7 See Table ng/mL 12/05/2023 9:02 EDT [facility] Comment: [...] & BLOOD GAS ORDERABLES Performing Organization Address [facility] de Phone Number [facility] [address] [place] [address] * ESTRADIOL, ADULTS (12/05/2023 7:54 EDT) Estradiol 1,060 See Note pg/mL 12/05/2023 9:02 EDT [facility] Comment: [...] & BLOOD G ORDERABLES Performing Organization Address [facility] Co de Phone Number [facility] [address] [place] [address] documented in this encounter Visit Diagnoses Diagnosis Encounter for assisted reproductive fertility procedure cycle Encounter for assisted reproductive fertility cycle Encounter for assisted reproductive fertility procedure cycle documented in this encounter Care Teams Trench Digging Machine Operator Relationship Specialty Start Date End Date Lisa Mcgregor FNP [address] [place] [address] [address] [place] [phone] PCP - General 05/05/22 Md Alfaro MD 05/05/22 documented as of this encounter
--- OUTSIDE RECORDS SUMMARY | 2024-01-13 07:58 | XMS_ITS | Encounter Summary ---
Author Organization [facility] Address [address] [place] [address] Care Team Providers Care Third Mate Name Role Phone BalbirRaniy [facility] Primary Care Provider [phone] Md MICHAELA Alfaro Unavailable Unavailable Reason for Visit * Reason Comments Procedure IVF monitoring Encounter Details Date Type Department Care Team (Late st Contact Info) Description 12/07/2023 8:00 EDT Procedure visit [facility] Center Reproductive Medicine & Infertility Center - [facility] [address] [place], [place] [phone] Aurora Hinton MD 111 [facility], [facility] 4 [place] [address] Encounter for assisted reproductive fertility [...] MD Reproductive Endocrinology and Infertility Fellow (PGY7) [facility] Attestation statement: I discussed the patient [...] [facility] Infertility Center - [address] [address] Layla Reid MD [address] [place] [address], Level [address] [place] [address] documented as of this encounter Procedures Procedure Name Priority Date/Time Associated Diagnosis Comments PROGESTERONE Routine 12/07/2023 8:07 EDT Encounter for assisted reproductive fertility cycle ESTRADIOL, ADULTS Routine 12/07/2023 8:0 7 EDT Encounter for assisted reproductive fertility cycle documented in this encounter Results * ESTRADIOL, ADULTS (12/16/2023 9:37 EDT) Estradiol 457 See Note pg/mL 12/16/2023 10:55 EDT [facility] Comment: NOTE: FEMALE REFERENCE RANGES: [...] BLOOD GA S ORDERABLES Performing Organization Address [facility]/State/ZIP Co de Phone Number [facility] [address] [place] [address] * ESTRADIOL, ADULTS (12/12/2023 7:25 EDT) Estradiol 6,285 See Note pg/mL 12/12/2023 9:32 EDT [facility] Comment: NOTE: FEMALE REFERENCE RANGES: [...] BLOOD GA S ORDERABLES Performing Organization Address [facility] de Phone Number [facility] [address] [place] [address] * ESTRADIOL, ADULTS (12/11/2023 8:12 EDT) Estradiol 4,364 See Note pg/mL 12/11/2023 11:00 EDT [facility] Comment: NOTE: FEMALE REFERENCE RANGES: [...] BLOOD GA S ORDERABLES Performing Organization Address [facility] Co de Phone Number [facility] [address] [place] [address] * PROGESTERONE (12/07/2023 8:07 EDT) Progesterone 0.8 See Table ng/mL 12/07/2023 9:22 EDT [facility] Comment: Female Reference Ranges: PHYSIOLOGICAL [...] Reid MD CHEMISTRY & BLOOD GAS ORDERABLES [facility] [address] [place] [address] * ESTRADIOL, ADULTS (12/07/2023 8:07 EDT) Estradiol 2,079 See Note pg/mL 12/07/2023 9:22 EDT [facility] Comment: NOTE: FEMALE REFERENCE RANGES: [...] MD CHEMISTRY & BLOOD GA S ORDERABLES [facility] [address] [place] [address] documented in this encounter Visit Diagnoses Diagnosis Encounter for assisted reproductive fertility cycle- Primary Encounter for assisted reproductive fertility procedure cycle documented in this encounter Care Teams Third Mate Relationship Specialty Start Date End Date Lisa Mcgregor FNP 26 [facility] [address] [place] [address] PCP - General 05/05/22 Md Alfaro MD 05/05/22 documented as of this encounter
--- OUTSIDE RECORDS SUMMARY | 2024-01-13 07:58 | XMS_ITS | Encounter Summary ---
Author Organization [facility] Address [address] [place] [address] Care Team Providers Care Professor Of Religious Studies Name Role Phone Lisa Mcgregor [facility] Primary Care Provider [phone] Md MICHAELA Alfaro Unavailable Unavailable Encounter Details Date Type Department Care Team (Late st Contact Info) Description 12/29/[address] [facility] Reproductive Medicine & Infertility [address] [address] Aleisha Che, [place]AP[place]O Encounter for [...] Contact Info) Description 01/13/2024 13:[address] [facility] Reproductive Medicine & Infertility [address] [phone] Layla Reid MD [address] [place] [address] 4 [place] [address] Scheduled Orders Name Type Priority Associated Diagnoses Orde r Schedule QUANT BETA HCG, Lab STAT Encounter for in vitro fertilization Expected: 01/10/2024 (Approximate), Expires: 01/09/2025 documented as of this encounter Results * (ABNORMAL) QUANT BETA HCG, (12/31/2023 9:21 EDT) Beta HCG Quant, 89(H) <5 mIU/mL 12/31/2023 10:27 EDT [facility] Comment: NOTE: : [...] Reid MD CHEMISTRY & BLOOD GAS ORDERABLES [facility] [address] [place] [address] documented in this encounter Visit Diagnoses Diagnosis Encounter for in vitro fertilization- Primary Encounter for assisted reproductive fertility procedure cycle documented in this encounter Care Teams Professor Of Religious Studies Relationship Specialty Start Date End Date Lisa Mcgregor FNP [address] [place] [address] [address] [place] [address] PCP - General 05/05/22 Md Alfaro MD 05/05/22 documented as of this encounter
--- OUTSIDE RECORDS SUMMARY | 2024-01-13 07:58 | XMS_ITS | Encounter Summary ---
Author Organization [facility] Address [address] [place] [address] Care Team Providers Care Mechanical Test Engineer Name Role Phone BalbirLisa [facility] Primary Care Provider [phone] Md MICHAELA Alfaro Unavailable Unavailable Encounter Details Date Type Department Care Team (Late st Contact Info) Description 12/12/2023 7:15 EDT Phlebotomy Only [facility] ED Center 2 Phlebotomy [address] [place] [address] Communication Arts Lecturer, [facility] Phlebotomy Encounter for assisted reproductive [...] Contact Info) Description 01/13/2024 13:15 EST Telemedicine [facility] Center Reproductive Medicine & Infertility Center - [facility] [address] [place], [place] [address] Layla Reid MD 111 [facility], Level [address] [place] [phone] documented as of this encounter Procedures Procedure Name Priority Date/Time Associated Diagnosis Comments PROGESTERONE Routine 12/12/2023 7:25 EDT Encounter for assisted reproductive fertility procedure cycle ESTRADIOL, ADULTS Routine 12/12/2023 7:2 5 EDT Encounter for assisted reproductive fertility cycle LH Routine 12/12/2023 7:25 EDT Encounter for assisted reproductive fertility procedure cycle documented in this encounter Results * PROGESTERONE (12/12/2023 7:25 EDT) [facility] Progesterone 13.5 See Table ng/mL 12/12/2023 8:53 EDT [facility] Comment: Female Reference [...] BLOOD GA S ORDERABLES Performing Organization Address [facility] Co de Phone Number [facility] [address] [place] [address] * LH (12/12/2023 7:25 EDT) [facility] Luteinizing Hormone 10.5 See Note mIU/mL 12/12/2023 9:39 EDT [facility] Comment: NOTE: Female [...] BLOOD GA S ORDERABLES Performing Organization Address [facility] de Phone Number [facility] [address] [place] [address] * ESTRADIOL, ADULTS (12/12/2023 7:25 EDT) [facility] Estradiol 6,285 See Note pg/mL 12/12/2023 9:32 EDT [facility] Comment: NOTE: FEMALE [...] MD CHEMISTRY & BLOOD GA S ORDERABLES [facility] [address] [place] [address] documented in this encounter Visit Diagnoses Diagnosis Encounter for assisted reproductive fertility cycle Encounter for assisted reproductive fertility procedure cycle Encounter for assisted reproductive fertility procedure cycle documented in this encounter Care Teams Mechanical Test Engineer Relationship Specialty Start Date End Date Lisa Mcgregor FNP [address] [place] [phone] PCP - General 05/05/22 Md Alfaro MD 05/05/22 documented as of this encounter
--- OUTSIDE RECORDS SUMMARY | 2024-01-13 07:58 | XMS_ITS | Encounter Summary ---
Author Organization [facility] Address [address] [place] [address] Care Team Providers Care Electroencephalographic Technologist Name Role Phone Lisa Mcgregor [facility] Primary Care Provider [phone] Md MICHAELA Alfaro Unavailable Unavailable Encounter Details Date Type Department Care Team (Late st Contact Info) Description 12/12/2023 Documentation Visit [facility] Reproductive Medicine & Infertility Center - [facility] [address] [place] [address] Lucrecia Land MD 111 [facility], Level 4 [place] [phone] Social History Tobacco Use Types Packs/Day Years [...] MD Reproductive Endocrinology and Infertility Fellow (PGY7) [facility] documented in this encounter Plan of Treatment Upcoming Encounters Date Type Department Care Team (Late st Contact Info) Description 01/13/2024 13:15 EST Telemedicine [facility] Reproductive Medicine & Infertility Center - [address] [phone] Layla Reid MD [address] [place] [address], [facility], Level 4 [place] [phone] documented as of this encounter Visit Diagnoses Not on filedocumented in this encounter Care Teams Electroencephalographic Technologist Relationship Specialty Start Date End Date Lisa Mcgregor FNP 26 [facility] [address] [place] [phone] PCP - General 05/05/22 Md Alfaro MD 05/05/22 documented as of this encounter
--- OUTSIDE RECORDS SUMMARY | 2024-01-13 07:58 | XMS_ITS | Encounter Summary ---
Author Organization [facility] Address [address] [place] [address] Care Team Providers Care Test Center Administrator Name Role Phone BalbirLisa [facility] Primary Care Provider [phone] Md MICHAELA Alfaro Unavailable Unavailable Encounter Details Date Type Department Care Team (Late st Contact Info) Description 12/27/2023 8:45 EDT Phlebotomy Only [facility] ED Center 2 Phlebotomy [address] [place] [address] Lead Solutions Architect, [facility] Phlebotomy Encounter for in vitro fertilization Social [...] Contact Info) Description 01/13/2024 13:15 EST Telemedicine [facility] Center Reproductive Medicine & [facility] - [facility] [address] [place], [place] [phone] Layla Reid MD 111 [facility], Level 4 [place] [address] documented as of this encounter Procedures Procedure Name Priority Date/Time Associated Diagnosis Comments QUANT BETA HCG, Routine 12/27/2023 9:04 EDT Encounter for in vitro fertilization documented in this encounter Results * (ABNORMAL) QUANT BETA HCG, (12/27/2023 9:04 EDT) Beta HCG Quant, 18(H) <5 mIU/mL 12/27/2023 10:17 EDT [facility] Comment: NOTE: : Negative: [...] Reid MD CHEMISTRY & BLOOD GAS ORDERABLES [facility] [address] [place] [address] documented in this encounter Visit Diagnoses Diagnosis Encounter for in vitro fertilization Encounter for assisted reproductive fertility procedure cycle documented in this encounter Care Teams Test Center Administrator Relationship Specialty Start Date End Date Lisa Mcgregor FNP [address] [place] [address] [address] [place] [address] PCP - General 05/05/22 Md Alfaro MD 05/05/22 documented as of this encounter
--- OUTSIDE RECORDS SUMMARY | 2024-01-13 07:58 | XMS_ITS | Encounter Summary ---
Author Organization [facility] Address [address] [place] [address] Care Team Providers Care Acting Professor Name Role Phone Lisa Mcgregor [facility] Primary Care Provider [phone] Md MICHAELA Alfaro Unavailable Unavailable Encounter Details Date Type Department Care Team (Late st Contact Info) Description 12/14/2023 Orders Only [facility] Reproductive Medicine & Infertility Center - [facility] [address] [place] [address] Lucrecia Land MD 111 [facility], Level 4 [place] [phone] Female infertility (Primary Dx) Social History Tobacco [...] Hospital Reproductive Medicine & Infertility Center - [address] [address] Layla Reid MD [address] [place] [address], Level 4 [place] [address] documented as of this encounter Results * PROGESTERONE (12/20/2023 9:33 EDT) [facility] Signature Progesterone 58.6 See Table ng/mL 12/20/2023 13:[address] [facility] Comment: Female Reference [...] Reid MD CHEMISTRY & BLOOD GAS ORDERABLES [facility] [address] [place] [address] * ESTRADIOL, ADULTS (12/20/2023 9:33 EDT) Estradiol 188 See Note pg/mL 12/20/2023 11:[address] [facility] Comment: NOTE: FEMALE [...] & BLOOD GAS ORDERABLES Performing Organization Address [facility] de Phone Number [facility] [address] [place] [address] * QUANT BETA HCG, (12/20/2023 9:33 EDT) Beta HCG Quant, <5 <5 mIU/mL 12/20/2023 10:[address] [facility] Comment: NOTE: : [...] & BLOOD GAS ORDERABLES Performing Organization Address [facility] Co de Phone Number [facility] [address] [place] [address] documented in this encounter Visit Diagnoses Diagnosis Female infertility- Primary Female infertility of unspecified origin documented in this encounter Care Teams Acting Professor Relationship Specialty Start Date End Date Lisa Mcgregor FNP [address] [place] [phone] PCP - General 05/05/22 Md Alfaro MD 05/05/22 documented as of this encounter
--- OUTSIDE RECORDS SUMMARY | 2024-01-13 07:58 | XMS_ITS | Encounter Summary ---
Author Organization [facility] Address [address] [place] [address] Care Team Providers Care Manager Ems Name Role Phone BalbirLisa [facility] Primary Care Provider [phone] Md MICHAELA Alfaro Unavailable Unavailable Encounter Details Date Type Department Care Team (Late st Contact Info) Description 12/29/2023 9:00 EDT Phlebotomy Only [facility] ED Center 2 Phlebotomy [address] [place] [address] Roads Supervisor, [facility] Phlebotomy Encounter for in vitro fertilization [...] Contact Info) Description 01/13/2024 13:15 EST Telemedicine [email or web address] Center Reproductive Medicine & Infertility Center - [facility] [address] [place], [place] [phone] Layla Reid MD 111 [facility], Level [address] [place] [address] documented as of this encounter Procedures Procedure Name Priority Date/Time Associated Diagnosis Comments QUANT BETA HCG, Routine 12/29/2023 9:15 EDT Encounter for in vitro fertilization documented in this encounter Results * (ABNORMAL) QUANT BETA HCG, (12/29/2023 9:15 EDT) Beta HCG Quant, 38(H) <5 mIU/mL 12/29/2023 10:31 EDT [facility] Comment: NOTE: : [...] Reid MD CHEMISTRY & BLOOD GAS ORDERABLES [facility] [address] [place] [address] documented in this encounter Visit Diagnoses Diagnosis Encounter for in vitro fertilization Encounter for assisted reproductive fertility procedure cycle documented in this encounter Care Teams Manager Ems Relationship Specialty Start Date End Date Lisa Mcgregor FNP [address] [place] [address] [address] [place] [address] PCP - General 05/05/22 Md Alfaro MD 05/05/22 documented as of this encounter
--- OUTSIDE RECORDS SUMMARY | 2024-01-13 07:58 | XMS_ITS | Encounter Summary ---
Author Organization [facility] Address [address] [place] [address] Care Team Providers Care Controls Operator Molded Goods Name Role Phone BalbirLisa [facility] Primary Care Provider [phone] Md MICHAELA Alfaro Unavailable Unavailable Reason for [...] 8:33 EDT - 01/04/2024 12:50 EDT Emergency [facility] Emergency Department - [facility] [address] [place] [address] Kirby Velazquez MD 111 [facility], Level 1 [place] [address] Threatened (Primary Dx) Discharge Disposition: [...] sent through Care Everywhere. * Miscarriage: Threatened (Tajik) documented in this encounter Medications at Time [...] Means Destination Comment s Home or Self [facility] documented in this encounter ED Notes * [...] ROM * Melody Ace RN - 01/04/2024 0873 EDT TCALL: ОЛЕГ MURCIA 89 REFERRED BY IVF CLINIC. ABNORMALLY RISING HCG, AND STARTED BLEEDING, R/O ECTOPIC. * Kirby Velazquez MD - 01/04/2024 0841 EDT Emergency Department Visit Medical Decision Making [...] Contact Info) Description 01/13/2024 13:15 EST Telemedicine [facility] Reproductive Medicine & Infertility Center [address] [phone] Layla Reid MD [address] [place] [address], Level 4 [place] [address] Pending Results Name Type Priority [...] 3 days Prior ultrasound dating: Not available. Woodbine-rump length: No pole is identified. IMPRESSION: of unknown location. Differential considerations include non- visualized early intrauterine , non-visualized ectopic , and completed early loss. Follow-up with serial HCG, obstetric ultrasound, and HEAD OPERATOR SULFIDE consultation is suggested. Reference: Mandi Falcon, et al. A lexicon for first-trimester US: Society of Radiologists in Ultrasound Consensus Conference recommendations. Radiology 312.2 (2023): [id number]. [id number] Narrative 01/04/2024 10:34 EDT US OB FIRST TRIMESTER (LESS THAN 14 WEEKS) TA AND TV AND LTD DUPLEX ??01/04/2024 9:45 AM SIGNS AND SYMPTOMS/COMMENTS: ??spotting, abnormal HCG COMPARISON: Pelvic ultrasound on 12/16/2023 DUPLEX: Indication for Duplex: Concern for ovarian torsion and/or mass Technique: Color and spectral Doppler ultrasound of the pelvis was performed. Resulting Agency Comment [id number] Procedure Note Romeo Salinas MD - 01/04/2024 US OB FIRST TRIMESTER (LESS THAN 14 WEEKS) TA AND TV AND LTD [id number]/04/2024 9:45 AM SIGNS AND SYMPTOMS/COMMENTS: spotting, abnormal [...] 3 days Prior ultrasound dating: Not available. Woodbine-rump length: No pole is identified. IMPRESSION: of unknown location. Differential considerations includenon-visualized early intrauterine , non-visualized ectopicpregnancy, and completed early loss. Follow-up with serial HCG,obstetric ultrasound, and HEAD OPERATOR SULFIDE consultation is suggested. Reference: Mandi Falcon, et al. A lexicon for first-trimester US:Society of Radiologists in Ultrasound Consensus Conferencerecommendations. Radiology 312.2 (2023): [id number]. [id number] Kirby Velazquez MD IMG US OB ORDERABLE S * HOLD BLUE TOP (01/04/2024 9:30 EDT) Hold Hold 01/04/2024 10:45 EDT [facility] Blood VENOUS BLOOD / Unknown Venipuncture / Unknown 01/04/2024 9:30 EDT 01/04/2024 9:34 EDT Kirby Velazquez MD LAB INFO SERVICE AN D SUPPORT & PHONE RESULT [facility] [address] [place], [place] [phone] * HOLD LAVENDER TOP (01/04/2024 9:30 EDT) Hold Hold 01/04/2024 10:45 EDT [facility] Blood VENOUS BLOOD / Unknown Venipuncture / Unknown 01/04/2024 9:30 EDT 01/04/2024 9:33 EDT Kirby Velazquez MD LAB INFO SERVICE AN D SUPPORT & PHONE RESULT [facility] [address] [place], [place] [phone] * HOLD GREEN TOP (01/04/2024 9:30 EDT) Hold Hold 01/04/2024 10:45 EDT [facility] Blood VENOUS BLOOD / Unknown Venipuncture / Unknown 01/04/2024 9:30 EDT 01/04/2024 9:33 EDT Kirby Velazquez MD LAB INFO SERVICE AN D SUPPORT & PHONE RESULT Performing Organization Address [facility] Co de Phone Number [facility] [address] [place] [address] * (ABNORMAL) QUANT BETA HCG, (01/04/2024 9:30 EDT) Beta HCG Quant, 80(H) <5 mIU/mL 01/04/2024 10:11 EDT [facility] Comment: NOTE: : Negative: [...] & BLOOD G ORDERABLES Performing Organization Address City/[facility]/ZIP Co de Phone Number [facility] [address] [place] [address] documented in this encounter Visit Diagnoses Diagnosis Threatened - Primary Threatened , unspecified as to episode of care documented in this encounter Care Teams Controls Operator Molded Goods Relationship Specialty Start Date End Date Lisa Mcgregor FNP [address] [place] [phone] PCP - General 05/05/22 Md Alfaro MD 05/05/22 documented as of this encounter
--- OUTSIDE RECORDS SUMMARY | 2024-01-13 07:58 | XMS_ITS | Encounter Summary ---
Author Organization [facility] Address [address] [place] [address] Care Team Providers Care Compressor Operator Name Role Phone Lisa Mcgregor [facility] Primary Care Provider [phone] Md MICHAELA Alfaro Unavailable Unavailable Reason for Referral * SHIP SELF DEFENSE SYSTEM MK1 OPERATOR (Routine/Next Available) - Authorization Not Required Specialty Diagnoses / Procedures Referred By Jalil quiñones Referred To Contact Diagnoses Encounter for assisted reproductive fertility cycle Procedures US PAINTLESS DENT REPAIR TECHNICIAN EXAM (KIANNA ONLY) Lucrecia Land MD [address] [phone] Referral ID Status Reason Start Date Expiration Date Visits Requested Visits Authorized [id number] Authorization Not Required 11/01/2023 4 4 Reason for Visit * SHIP SELF DEFENSE SYSTEM MK1 OPERATOR (Routine/Next Available) - Authorization Not Required Specialty Diagnoses / Procedures Referred By Jalil quiñones Referred To Contact Diagnoses Encounter for assisted reproductive fertility cycle Procedures US PAINTLESS DENT REPAIR TECHNICIAN EXAM (KIANNA ONLY) Lucrecia Land MD [address] [address] Referral ID Status Reason Start Date Expiration Date Visits Requested Visits Authorized [id number] Authorization Not Required 11/01/2023 4 4 Encounter Details Date Type Department Care Team (Latest Contact Info) Description 12/11/2023 8:38 EDT - 12/11/2023 23:59 EDT Hospital Encounter [facility] OBGYN Services - [address] [address] Encounter for assisted reproductive fertility cycle Discharge [...] Hospital Reproductive Medicine & Infertility Center - [address] [address] Layla Reid MD [address] [place] [address], Level 4 [place] [address] documented as of this encounter Procedures Procedure Name Priority Date/Time Associated Diagnosis Comments US PAINTLESS DENT REPAIR TECHNICIAN EXAM (KIANNA ONLY) Routine 12/11/2023 9:36 EDT Encounter for assisted reproductive fertility cycle documented in this encounter Results * US PAINTLESS DENT REPAIR TECHNICIAN EXAM (KIANNA ONLY) (12/11/2023 9:36 EDT) Anatomical [...] mild Impression ========= USE (IVF Follicular) - 42742 1. Uterus appears normal with trilaminar endometrium. [...] mild Impression ========= USE (IVF Follicular) - 21100 1. Uterus appears normal with trilaminar endometrium. 2. Ovarian follicles appear to be in late folliculogenesis. 3. Small amount of fluid in the cul de sac. Follow-up ======== Labs today, plan per ART team. Comment ======== N97.8 female infertility, other DATE OF SERVICE: 12/11/2023 Lucrecia Land MD [facility] OB ORDERA BLES documented in this encounter Visit Diagnoses Diagnosis Encounter for assisted reproductive fertility cycle Encounter for assisted reproductive fertility procedure cycle documented in this encounter Care Teams Compressor Operator Relationship Specialty Start Date End Date Lisa Mcgregor FNP [address] [place] [phone] PCP - General 05/05/22 Md Alfaro MD 05/05/22 documented as of this encounter
--- OUTSIDE RECORDS SUMMARY | 2024-01-13 07:58 | XMS_ITS | Encounter Summary ---
Author Organization [facility] Address [address] [place] [address] Care Team Providers Care French Polisher Name Role Phone Balbir Lisa [facility] Primary Care Provider [phone] Md MICHAELA Alfaro Unavailable Unavailable Encounter Details Date Type Department Care Team (Latest Contact Info) Description 12/13/2023 7:59 EDT - 12/13/2023 23:59 EDT Hospital Encounter [facility] Reproductive Medicine & Infertility Center - [facility] [address] [place], [place] [address] Discharge Disposition: Home or Self Care Social [...] Description 01/13/2024 13:15 EST Telemedicine [facility] Reproductive Medicine & Infertility Center - [address] [address] Layla Reid MD [address] [place] [address], Level 4 [place] [address] documented as of this [...] on filedocumented in this encounter Care Teams French Polisher Relationship Specialty Start Date End Date Lisa Mcgregor FNP 26 [facility] [address] [place] [phone] PCP - General 05/05/22 Md Alfaro MD 05/05/22 documented as of this encounter
--- OUTSIDE RECORDS SUMMARY | 2024-01-13 07:58 | XMS_ITS | Encounter Summary ---
Author Organization Health system Address [address] [place] [address] Care Team Providers Care Inspector Fibrous Wallboard Name Role Phone Lisa Mcgregor [facility] Primary Care Provider [phone] Md MICHAELA Alfaro Unavailable Unavailable Encounter Details Date Type Department Care Team (Late st Contact Info) Description 12/09/2023 Orders Only [facility] Reproductive Medicine & Infertility [address] [address] Aleisha Che RN Social History [...] Description 01/13/2024 13:15 EST Telemedicine [facility] Reproductive Medicine & Infertility [address] [phone] Layla Reid MD 111 [facility] 4 [place] [address] documented as of this encounter Visit Diagnoses Not on filedocumented in this encounter Care Teams Inspector Fibrous Wallboard Relationship Specialty Start Date End Date Lisa Mcgregor FNP [address] [place] [phone] PCP - General 05/05/22 Md Alfaro MD 05/05/22 documented as of this encounter
--- OUTSIDE RECORDS SUMMARY | 2024-01-13 07:58 | XMS_ITS | Encounter Summary ---
Author Organization [facility] Address [address] [place] [address] Care Team Providers Care Director Institution Name Role Phone BalbirLisa [facility] Primary Care Provider [phone] Md MICHAELA Alfaro Unavailable Unavailable Reason for Visit * Reason Comments Procedure IVF monitoring Encounter Details Date Type Department Care Team (Late st Contact Info) Description 12/05/2023 9:30 EDT Procedure visit [facility] Center Reproductive Medicine & Infertility Center - [facility] [address] [place], [place] [address] Cheryl Fuller MD 111 [facility], [facility] [address] [place] [address] Encounter for assisted reproductive fertility [...] to 150u Gonal F tomorrow night and [id number] Menopur Continue antagonist Scan and labs on Wednesday (will schedule time tomorrow when schedulers in office) Lucrecia Land MD Reproductive Endocrinology and Infertility Fellow (PGY7) [facility] documented in this encounter Plan of Treatment Upcoming Encounters Date Type Department Care Team (Late st Contact Info) Description 01/13/2024 13:15 EST Telemedicine [facility] Reproductive Medicine & Infertility Center - [place] [phone] Layla Reid MD [address] [place] [address], [address] [place] [address] documented as of this encounter Visit Diagnoses Diagnosis Encounter for assisted reproductive fertility cycle- Primary Encounter for assisted reproductive fertility procedure cycle documented in this encounter Care Teams Director Institution Relationship Specialty Start Date End Date Lisa Mcgregor FNP [address] [place] [address] [address] [place] [phone] PCP - General 05/05/22 Md Alfaro MD 05/05/22 documented as of this encounter
--- OUTSIDE RECORDS SUMMARY | 2024-01-13 07:58 | XMS_ITS | Encounter Summary ---
Author Organization [facility] Address [address] [place] [address] Care Team Providers Care Colorist Name Role Phone Lisa Mcgregor [facility] Primary Care Provider [phone] Md MICHAELA Alfaro Unavailable Unavailable Reason for Referral * ACUTE CARE PHYSICIAN (Routine/Next Available) - Authorization Not Required Specialty Diagnoses / Procedures Referred By Jalil quiñones Referred To Contact Diagnoses Encounter for assisted reproductive fertility cycle Procedures US BUYER EXAM (KIANNA ONLY) Lucrecia Land MD [address] [address] Referral ID Status Reason Start Date Expiration Date Visits Requested Visits Authorized [id number] Authorization Not Required 11/01/2023 4 4 Reason for Visit * ACUTE CARE PHYSICIAN (Routine/Next Available) - Authorization Not Required Specialty Diagnoses / Procedures Referred By Jalil quiñones Referred To Contact Diagnoses Encounter for assisted reproductive fertility cycle Procedures US BUYER EXAM (KIANNA ONLY) Lucrecia Land MD [address] [address] Referral ID Status Reason Start Date Expiration Date Visits Requested Visits Authorized [id number] Authorization Not Required 11/01/2023 4 4 Encounter Details Date Type Department Care Team (Latest Contact Info) Description 12/09/2023 7:35 EDT - 12/09/2023 23:59 EDT Hospital Encounter [facility] OBGYN Services - [address] [address] Encounter for assisted reproductive fertility cycle Discharge [...] Contact Info) Description 01/13/2024 13:15 EST Telemedicine [facility] Reproductive Medicine & Infertility Center - [address] [address] Layla Reid MD [address] [place] [address], [facility] [address] [place] [address] documented as of this encounter Procedures Procedure Name Priority Date/Time Associated Diagnosis Comments US BUYER EXAM (KIANNA ONLY) Routine 12/09/2023 7:43 EDT Encounter for assisted reproductive fertility cycle documented in this encounter Results * US BUYER EXAM (KIANNA ONLY) (12/09/2023 7:43 EDT) Anatomical [...] fluid Impression ========= USE (IVF Follicular) - 16038 1. Anteverted uterus with trilaminar endometrium 2. [...] fluid Impression ========= USE (IVF Follicular) - 92581 1. Anteverted uterus with trilaminar endometrium 2. [...] cycle documented in this encounter Care Teams Colorist Relationship Specialty Start Date End Date Lisa Mcgregor FNP [address] [phone] PCP - General 05/05/22 Md Alfaro MD 05/05/22 documented as of this encounter
--- OUTSIDE RECORDS SUMMARY | 2024-01-13 07:58 | XMS_ITS | Encounter Summary ---
Author Organization [facility] Address [address] [place] [address] Care Team Providers Care Manufacturing Engineering Technician Name Role Phone BalbirLisa [facility] Primary Care Provider [phone] Md MICHAELA Alfaro Unavailable Unavailable Encounter Details Date Type Department Care Team (Late st Contact Info) Description 12/03/2023 8:45 EDT Phlebotomy Only [facility] ED Center 2 Phlebotomy [address] [place] [address] Transcribing Operator Head, [facility] Phlebotomy Encounter for assisted reproductive fertility [...] Contact Info) Description 01/13/2024 13:15 EST Telemedicine [facility] Center Reproductive Medicine & Infertility Center - [facility] [address] [place], [place] [phone] Layla Reid MD 111 [facility], Level 4 [place] [phone] documented as of this encounter Procedures Procedure Name Priority Date/Time Associated Diagnosis Comments ESTRADIOL, ADULTS Routine 12/03/2023 8:4 5 EDT Encounter for assisted reproductive fertility procedure cycle documented in this encounter Results * ESTRADIOL, ADULTS (12/03/2023 8:45 EDT) Estradiol 392 See Note pg/mL 12/03/2023 10:07 EDT [facility] Comment: NOTE: FEMALE [...] Robb MD CHEMISTRY & BLOOD G ORDERABLES [facility] [address] [place], [place] [address] documented in this encounter Visit Diagnoses Diagnosis Encounter for assisted reproductive fertility procedure cycle documented in this encounter Care Teams Manufacturing Engineering Technician Relationship Specialty Start Date End Date Lisa Mcgregor FNP 26 [facility] [address] [place] [phone] PCP - General 05/05/22 Md Alfaro MD 05/05/22 documented as of this encounter
--- OUTSIDE RECORDS SUMMARY | 2024-01-13 07:58 | XMS_ITS | Encounter Summary ---
Author Organization [facility] Address [address] [place] [address] Care Team Providers Care Child Adolescent Psychiatrist Name Role Phone BalbirLisa TEACHER HEARING IMPAIRED Primary Care Provider [phone] Md MICHAELA Alfaro Unavailable Unavailable Encounter Details Date Type Department Care Team (Late st Contact Info) Description 12/13/2023 7:49 EDT - 12/13/2023 7:58 EDT Hospital Encounter [facility] Reproductive Medicine & Infertility Center - [facility] [address] [place], [place] [phone] Layla Reid MD 111 [facility], [facility] 4 [place] [address] Encounter for assisted reproductive fertility [...] lumen catheter Anesthesia: MAC Attending: Dr. Reid Sharepoint Application Developer: Dr. Land Antibiotics: Ancef 2 g IV [...] Land MD Fellow, Reproductive Endocrinology and Infertility [facility] 12/13/2023 / 9:53 Attestation statement: I was present during the entire procedure during the patient's clinic visit.I agree with the findings and plan of care documented in the above note. Layla Reid MD documented in this encounter Plan of Treatment Upcoming Encounters Date Type Department Care Team (Late st Contact Info) Description 01/13/2024 13:15 EST Telemedicine [facility] Reproductive Medicine & Infertility Center - [address] [address] Layla Reid MD [address] [place] [address], Level 4 [place] [address] documented as of this encounter Procedures Procedure Name Priority Date/Time Associated Diagnosis Comments POC IVF/KIANNA US GUIDANCE Routine 12/13/2023 7:59 EDT documented in this encounter Results * PROGESTERONE (12/16/2023 9:37 EDT) Progesterone 36.0 See Table ng/mL 12/16/2023 10:55 EDT [facility] Comment: Female Reference Ranges: PHYSIOLOGICAL [...] Reid MD CHEMISTRY & BLOOD GAS ORDERABLES [facility] [address] [place] [address] * POC IVF/KIANNA GUIDANCE (12/13/2023 7:59 EDT) Narrative 12/13/2023 7:59 EDT This is a non-reportable exam. Layla Reid MD [facility] POC ORDERA BLES documented in this encounter [...] 12/13/2023 documented in this encounter Care Teams Child Adolescent Psychiatrist Relationship Specialty Start Date End Date Lisa Mcgregor FNP [address] [place] [phone] PCP - General 05/05/22 Md Alfaro MD 05/05/22 documented as of this encounter
--- OUTSIDE RECORDS SUMMARY | 2024-01-13 07:58 | XMS_ITS | Encounter Summary ---
Author Organization [facility] Address [address] [place] [address] Care Team Providers Care Green Chain Offbearer Name Role Phone Balbir Lisa [facility] Primary Care Provider Md MICHAELA Alfaro Unavailable Unavailable Reason for Visit * Reason Onset Date Comments Results 12/29/2023 Encounter Details Date Type Department Care Team (Late st Contact Info) Description 12/29/[address] [facility] Reproductive Medicine & Infertility Center - [facility] [address] [place], [place] [phone] Lucrecia Land MD 111 [facility], Level 4 [place] [address] Results Social History Tobacco Use [...] Contact Info) Description 01/13/2024 13:15 EST Telemedicine [facility] Reproductive Medicine & Infertility Center - [address] [phone] Layla Reid MD [address] [place] [address], Level [address] [place] [address] documented as of this encounter Visit Diagnoses Not on filedocumented in this encounter Care Teams Green Chain Offbearer Relationship Specialty Start Date End Date Lisa Mcgregor FNP [address] [place] [address] [address] [place] [phone] PCP - General 05/05/22 Md Alfaro MD 05/05/22 documented as of this encounter
--- OUTSIDE RECORDS SUMMARY | 2024-01-13 07:58 | XMS_ITS | Encounter Summary ---
Author Organization [facility] Address [address] [place] [address] Care Team Providers Care Moto Mix Operator Name Role Phone BalbirLisa [facility] Primary Care Provider Md MICHAELA Alfaro Unavailable Unavailable Reason for Visit * Reason Comments Procedure IVF monitoring Encounter Details Date Type Department Care Team (Late st Contact Info) Description 12/09/2023 8:00 EDT Procedure visit [facility] Reproductive Medicine & Infertility Center - [facility] [address] [place], [place] [phone] Sheila Robb MD 111 [facility], Level 4 [place] [address] Encounter for assisted reproductive fertility [...] ICSI (TESE sample) Med day 12 on [facility] [place], labs and IVF plan reviewed with [...] and Infertility Fellow (PGY7) [facility] * Sheila Robb MD - 12/09/2023 0800 EDT Attestation statement: I discussed the patient with the resident/fellow at the time of the visit. Iagree with the findings and the plan of care documented in the resident's/fellow's note. documented in this encounter Plan of Treatment Upcoming Encounters Date Type Department Care Team (Late st Contact Info) Description 01/13/2024 13:15 EST Telemedicine [facility] Reproductive Medicine & Infertility Center - [address] [phone] Layla Reid MD [address] [place] [address], [facility], Level [address] [place] [address] documented as of this encounter [...] documented as of this encounter Care Teams Moto Mix Operator Relationship Specialty Start Date End Date Lisa Mcgregor FNP [address] [place] [phone] PCP - General 05/05/22 Md Alfaro MD 05/05/22 documented as of this encounter
--- OUTSIDE RECORDS SUMMARY | 2024-01-13 07:58 | XMS_ITS | Encounter Summary ---
Author Organization [facility] Address [address] [place] [address] Care Team Providers Care Enterprise Cloud Architect Name Role Phone Lisa Mcgregor [facility] Primary Care Provider [phone] Md MICHAELA Alfaro Unavailable Unavailable Encounter Details Date Type Department Care Team (Late st Contact Info) Description 12/10/2023 Orders Only [facility] Reproductive Medicine & Infertility Center - [facility] [address] [place] [address] Aleisha Che RN Social History Tobacco Use [...] Contact Info) Description 01/13/2024 13:15 EST Telemedicine [facility] Reproductive Medicine & Infertility Center - [facility] [address] [place], [place] [phone] Layla Reid MD 111 [facility], Level [address] [place] [phone] documented as of this encounter Visit Diagnoses [...] documented as of this encounter Care Teams Enterprise Cloud Architect Relationship Specialty Start Date End Date Lisa Mcgregor FNP [address] [place] [address] [address] [place] [phone] PCP - General 05/05/22 Md Alfaro MD 05/05/22 documented as of this encounter
--- OUTSIDE RECORDS SUMMARY | 2024-01-13 07:58 | XMS_ITS | Encounter Summary ---
Author Organization [facility] Address [address] [place] [address] Care Team Providers Care Desk Clerk Name Role Phone Lisa Mcgregor [facility] Primary Care Provider [phone] Md MICHAELA Alfaro Unavailable Unavailable Reason for Referral * PETROLEUM LABORATORY TECHNICIAN (Routine/Next Available) - Authorization Not Required Specialty Diagnoses / Procedures Referred By Jalil quiñones Referred To Contact Diagnoses Encounter for assisted reproductive fertility cycle Procedures US LANGUAGE INSTRUCTOR EXAM (KIANNA ONLY) Lucrecia Land MD [address] [address] Referral ID Status Reason Start Date Expiration Date Visits Requested Visits Authorized [id number] Authorization Not Required 11/01/2023 4 4 Reason for Visit * PETROLEUM LABORATORY TECHNICIAN (Routine/Next Available) - Authorization Not Required Specialty Diagnoses / Procedures Referred By Jalil quiñones Referred To Contact Diagnoses Encounter for assisted reproductive fertility cycle Procedures US LANGUAGE INSTRUCTOR EXAM (KIANNA ONLY) Lucrecia Land MD [address] [address] Referral ID Status Reason Start Date Expiration Date Visits Requested Visits Authorized [id number] Authorization Not Required 11/01/2023 4 4 Encounter Details Date Type Department Care Team (Latest Contact Info) Description 12/05/2023 8:34 EDT - 12/05/2023 23:59 EDT Hospital Encounter [facility] OBGYN Services - [address] [address] Encounter for assisted reproductive fertility cycle Discharge [...] Contact Info) Description 01/13/2024 13:15 EST Telemedicine [facility] Reproductive Medicine & Infertility Center - [address] [address] Layla Reid MD [address] [place] [address], Level 4 [place] [address] documented as of this encounter Procedures Procedure Name Priority Date/Time Associated Diagnosis Comments US LANGUAGE INSTRUCTOR EXAM (KIANNA ONLY) Routine 12/05/2023 8:52 EDT Encounter for assisted reproductive fertility cycle documented in this encounter Results * US LANGUAGE INSTRUCTOR EXAM (KIANNA ONLY) (12/05/2023 8:52 EDT) Anatomical [...] DATE OF SERVICE: 12/05/2023 Lucrecia Land MD [facility] ORDERA BLES documented in this encounter Visit Diagnoses Diagnosis Encounter for assisted reproductive fertility cycle Encounter for assisted reproductive fertility procedure cycle documented in this encounter Care Teams Desk Clerk Relationship Specialty Start Date End Date Lisa Mcgregor FNP [address] [place] [phone] PCP - General 05/05/22 Md Alfaro MD 05/05/22 documented as of this encounter
--- OUTSIDE RECORDS SUMMARY | 2024-01-13 07:58 | XMS_ITS | Encounter Summary ---
Author Organization [facility] Address [address] [place] [address] Care Team Providers Care Immigration Inspector Name Role Phone Balbir Lisa [facility] Primary Care Provider [phone] Md MICHAELA Alfaro Unavailable Unavailable Encounter Details Date Type Department Care Team (Late st Contact Info) Description 01/02/2024 8:30 EDT Phlebotomy Only [facility] ED Center 2 Phlebotomy [address] [place] [address] Medical Records Administrator, Acc Phlebotomy resulting from assisted reproductive technology [...] Contact Info) Description 01/13/2024 13:15 EST Telemedicine [facility] Reproductive Medicine & Infertility Center - [facility] [address] [place] [address] Layla Reid MD 111 [facility], Level 4 [place] [address] documented as of this encounter Procedures Procedure Name Priority Date/Time Associated Diagnosis Comments QUANT BETA HCG, Routine 01/02/2024 8:26 EDT resulting from assisted reproductive technology in first trimester documented in this encounter Results * (ABNORMAL) QUANT BETA HCG, (01/02/2024 8:26 EDT) Beta HCG Quant, 115(H) <5 mIU/mL 01/02/2024 9:37 EDT [facility] Comment: NOTE: : Negative: Less [...] CHEMISTRY & BLOOD GAS ORDERABLES [facility] [address] [place], [place] [address] documented in this encounter Visit Diagnoses Diagnosis resulting from assisted reproductive technology in first trimester documented in this encounter Care Teams Immigration Inspector Relationship Specialty Start Date End Date Lisa Mcgregor FNP [address] [place] [address] [address] [place] [address] PCP - General 05/05/22 Md Alfaro MD 05/05/22 documented as of this encounter
--- OUTSIDE RECORDS SUMMARY | 2024-01-13 07:58 | XMS_ITS | Encounter Summary ---
Author Organization [facility] Address [address] [place] [address] Care Team Providers Care Acid Bleacher Name Role Phone BalbirLisa [facility] Primary Care Provider [phone] Md MICHAELA Alfaro Unavailable Unavailable Encounter Details Date Type Department Care Team (Late st Contact Info) Description 12/07/2023 Orders Only [facility] Reproductive Medicine & Infertility Center - [facility] [address] [place] [address] Aleisha Che RN Social History Tobacco Use [...] Hospital Reproductive Medicine & Infertility Center - [address] [address] Layla Reid MD 111 [facility], Level 4 [place] [address] documented as of this encounter Visit Diagnoses Not on filedocumented in this encounter Discontinued Medications Medication Sig Discontinue Reason Start Date End Da te leuprolide (LUPRON) 1 mg/0.2 mL kit Inject 80 units into the skin 12 hours apart when direct. Reorder 12/07/2023 12/07/2023 documented as of this encounter Care Teams Acid Bleacher Relationship Specialty Start Date End Date Lisa Mcgregor FNP 26 [facility] [address] [place] [phone] PCP - General 05/05/22 Md Alfaro MD 05/05/22 documented as of this encounter
--- OUTSIDE RECORDS SUMMARY | 2024-01-13 07:58 | XMS_ITS | Encounter Summary ---
Author Organization [facility] Address [address] [place] [address] Care Team Providers Care Dry Plasterer Name Role Phone Lisa Mcgregor [facility] Primary Care Provider [phone] Md MICHAELA Alfaro Unavailable Unavailable Encounter Details Date Type Department Care Team (Late st Contact Info) Description 12/27/2023 Orders Only [facility] Reproductive Medicine & Infertility [address] [address] Aleisha Che, CHAPARRO Encounter for [...] Contact Info) Description 01/13/2024 13:15 EST Telemedicine [facility] Reproductive Medicine & Infertility [address] [phone] Layla Reid MD [address] [place] [address] [address] [place] [phone] documented as of this encounter Results * (ABNORMAL) QUANT BETA HCG, (12/29/2023 9:15 EDT) Beta HCG Quant, 38(H) <5 mIU/mL 12/29/2023 10:31 EDT [facility] Comment: NOTE: : [...] Reid MD CHEMISTRY & BLOOD GAS ORDERABLES [facility] [address] [place] [phone] documented in this encounter Visit Diagnoses Diagnosis Encounter for in vitro fertilization- Primary Encounter for assisted reproductive fertility procedure cycle documented in this encounter Care Teams Dry Plasterer Relationship Specialty Start Date End Date Lisa Mcgregor FNP 26 [facility] [address] [place] [phone] PCP - General 05/05/22 Md Alfaro MD 05/05/22 documented as of this encounter
--- OUTSIDE RECORDS SUMMARY | 2024-01-13 07:58 | XMS_ITS | Encounter Summary ---
Author Organization [facility] Address [address] [place] [address] Care Team Providers Care Special Tax Auditor Name Role Phone BalbirLisa [facility] Primary Care Provider [phone] Md MICHAELA Alfaro Unavailable Unavailable Reason for Referral * Radiology Services (Routine/Next Available) - New Request Specialty Diagnoses / Procedures Referred By [facility] quiñones Referred To Contact Diagnoses Encounter for assisted reproductive fertility procedure cycle Procedures POC IVF/KIANNA US GUIDANCE Layla Reid MD [address] [place] [phone] Referral ID Status Reason Start Date Expiration Date V isits Requested Visits Authorized [id number] New Request 12/16/2023 1 1 Encounter Details Date Type Department Care Team (Late st Contact Info) Description 12/16/2023 11:00 EDT - 12/16/2023 23:59 EDT Hospital Encounter [facility] Reproductive Medicine & Infertility Center - [facility] [address] [place] [address] Layla Reid MD [address] [address] Encounter for assisted reproductive fertility [...] MD PGY7 Fellow Reproductive Endocrinology & Infertility [facility] 12/16/2023 Attestation statement: I was [...] Contact Info) Description 01/13/2024 13:15 EST Telemedicine [facility] Reproductive Medicine & Infertility Center - [address] [phone] Layla Reid MD [address] [place] [address], Level [address] [place] [phone] documented as of this encounter Results * POC IVF/KIANNA US GUIDANCE (12/16/2023 10:50 EDT) Narrative 12/16/2023 10:50 EDT This is a non-reportable exam. Layla Reid MD IMG US POC ORDERA BLES documented in this encounter Visit Diagnoses Diagnosis Encounter for assisted reproductive fertility procedure cycle- Primary Encounter for assisted reproductive fertility procedure cycle documented in this encounter Care Teams Special Tax Auditor Relationship Specialty Start Date End Date Lisa Mcgregor FNP 26 [facility] [address] [place] [phone] PCP - General 05/05/22 Md Alfaro MD 05/05/22 documented as of this encounter
--- OUTSIDE RECORDS SUMMARY | 2024-01-13 07:58 | XMS_ITS | Encounter Summary ---
Author Organization [facility] Address [address] [place] [address] Care Team Providers Care Boat Oar Maker Name Role Phone Lisa Mcgregor [facility] Primary Care Provider [phone] Md MICHAELA Alfaro Unavailable Unavailable Reason for Referral * UNIFORM CAP OPERATOR (Routine/Next Available) - Authorization Not Required Specialty Diagnoses / Procedures Referred By Jalil quiñones Referred To Contact Diagnoses Encounter for assisted reproductive fertility cycle Procedures US SURGICAL AIDE EXAM (KIANNA ONLY) Lucrecia Land MD [address] [address] Referral ID Status Reason Start Date Expiration Date Visits Requested Visits Authorized [id number] Authorization Not Required 11/01/2023 4 4 Reason for Visit * UNIFORM CAP OPERATOR (Routine/Next Available) - Authorization Not Required Specialty Diagnoses / Procedures Referred By Jalil quiñones Referred To Contact Diagnoses Encounter for assisted reproductive fertility cycle Procedures US SURGICAL AIDE EXAM (KIANNA ONLY) Lucrecia Land MD [address] [address] Referral ID Status Reason Start Date Expiration Date Visits Requested Visits Authorized [id number] Authorization Not Required 11/01/2023 4 4 Encounter Details Date Type Department Care Team (Latest Contact Info) Description 12/07/2023 7:25 EDT - 12/07/2023 23:59 EDT Hospital Encounter [facility] OBGYN Services - [address] [address] Encounter for assisted reproductive fertility cycle Discharge [...] Contact Info) Description 01/13/2024 13:15 EST Telemedicine [facility] Reproductive Medicine & Infertility Center - [address] [address] Layla Reid MD [address] [place] [address], Level [address] [place] [address] documented as of this encounter Procedures Procedure Name Priority Date/Time Associated Diagnosis Comments US SURGICAL AIDE EXAM (KIANNA ONLY) Routine 12/07/2023 7:30 EDT Encounter for assisted reproductive fertility cycle documented in this encounter Results * US SURGICAL AIDE EXAM (KIANNA ONLY) (12/07/2023 7:30 EDT) Anatomical [...] trace Impression ========= USE (IVF Follicular) - 86921 1. Anteverted uterus with trilaminar endometrium 2. [...] trace Impression ========= USE (IVF Follicular) - 88939 1. Anteverted uterus with trilaminar endometrium 2. [...] cycle documented in this encounter Care Teams Boat Oar Maker Relationship Specialty Start Date End Date Lisa Mcgregor FNP [address] [phone] PCP - General 05/05/22 Md Alfaro MD 05/05/22 documented as of this encounter
--- OUTSIDE RECORDS SUMMARY | 2024-01-13 07:58 | XMS_ITS | Encounter Summary ---
Author Organization [facility] Address [address] [place] [address] Care Team Providers Care Computer Science Instructor Name Role Phone Lisa Mcgregor [facility] Primary Care Provider [phone] Md MICHAELA Alfaro Unavailable Unavailable Encounter Details Date Type Department Care Team (Late st Contact Info) Description 12/24/2023 Orders Only [facility] Reproductive Medicine & Infertility [address] [address] Aleisha Che, CHAPARRO Encounter for [...] Contact Info) Description 01/13/2024 13:15 EST Telemedicine [facility] Reproductive Medicine & Infertility [address] [phone] Layla Reid MD [address] [place] [address] 4 [place] [phone] documented as of this encounter Results * (ABNORMAL) QUANT BETA HCG, (12/27/2023 9:04 EDT) Beta HCG Quant, 18(H) <5 mIU/mL 12/27/2023 10:17 EDT [facility] Comment: NOTE: : [...] CHEMISTRY & BLOOD GAS ORDERABLES [facility] [address] [place], [place] [phone] documented in this encounter Visit Diagnoses Diagnosis Encounter for in vitro fertilization- Primary Encounter for assisted reproductive fertility procedure cycle documented in this encounter Care Teams Computer Science Instructor Relationship Specialty Start Date End Date Lisa Mcgregor FNP 26 [facility] [address] [place] [phone] PCP - General 05/05/22 Md Alfaro MD 05/05/22 documented as of this encounter
--- OUTSIDE RECORDS SUMMARY | 2024-01-13 07:58 | XMS_ITS | Encounter Summary ---
Author Organization [facility] Address [address] [place] [address] Care Team Providers Care Upper And Bottom Lacer Hand Name Role Phone BalbirLisa [facility] Primary Care Provider [phone] Md MICHAELA Alfaro Unavailable Unavailable Encounter Details Date Type Department Care Team (Late st Contact Info) Description 12/16/2023 9:15 EDT Phlebotomy Only [facility] ED Center 2 Phlebotomy [address] [place], [place] [address] Cylinder Press Operator Apprentice, [facility] Phlebotomy Encounter for assisted reproductive fertility [...] Info) Description 01/13/2024 13:15 EST Telemedicine [facility] Reproductive Medicine & Infertility Center - [facility] [address] [place], [place] [phone] Layla Reid MD 111 [facility] 4 [place] [phone] (Oqsw) documented as of this encounter Procedures Procedure Name Priority Date/Time Associated Diagnosis Comments PROGESTERONE Routine 12/16/2023 9:37 EDT Encounter for assisted reproductive fertility procedure cycle [Z31.83] ESTRADIOL, ADULTS Routine 12/16/2023 9:3 7 EDT Encounter for assisted reproductive fertility cycle documented in this encounter Results * PROGESTERONE (12/16/2023 9:37 EDT) [facility] Signature Progesterone 36.0 See Table ng/mL 12/16/2023 10:55 EDT [facility] Comment: Female [...] & BLOOD GAS ORDERABLES Performing Organization Address [facility] Co de Phone Number [facility] [address] [place] [address] * ESTRADIOL, ADULTS (12/16/2023 9:37 EDT) Estradiol 457 See Note pg/mL 12/16/2023 10:55 EDT [facility] Comment: NOTE: [...] BLOOD GA S ORDERABLES Performing Organization Address City/[facility] Co de Phone Number [facility] [address] [place] [address] documented in this encounter Visit Diagnoses Diagnosis Encounter for assisted reproductive fertility cycle Encounter for assisted reproductive fertility procedure cycle Encounter for assisted reproductive fertility procedure cycle [Z31.83] Encounter for assisted reproductive fertility procedure cycle documented in this encounter Care Teams Upper And Bottom Lacer Hand Relationship Specialty Start Date End Date Lisa Mcgregor FNP [address] [place] [address] [address] [place] [address] PCP - General 05/05/22 Md Alfaro MD 05/05/22 documented as of this encounter
--- OUTSIDE RECORDS SUMMARY | 2024-01-13 07:58 | XMS_ITS | Encounter Summary ---
Author Organization [facility] Address [address] [place] [address] Care Team Providers Care Outdoor Pursuits Instructor Name Role Phone Lisa Mcgregor [facility] Primary Care Provider [phone] Md MICHAELA Alfaro Unavailable Unavailable Encounter Details Date Type Department Care Team (Late st Contact Info) Description 12/13/2023 8:45 EDT Anesthesia Event [facility] [place] Reproductive Medicine & Infertility Center - [facility] [address] [place], [place] [phone] Amparo Rivera MD [address] [phone] Harriet Santana CRNA [address] [address] Anesthesia Record Procedure Summary Procedure [...] System Reproductive Medicine & Infertility Center - [address] [address] Layla Reid MD 111 [facility], Level 4 [place] [address] documented as of this encounter [...] mg documented in this encounter Care Teams Outdoor Pursuits Instructor Relationship Specialty Start Date End Date Lisa Mcgregor FNP [address] [place] [phone] PCP - General 05/05/22 Md Alfaro MD 05/05/22 documented as of this encounter
--- OUTSIDE RECORDS SUMMARY | 2024-01-13 07:58 | XMS_ITS | Encounter Summary ---
Author Organization [facility] Address [address] [place] [address] Care Team Providers Care Electronic Prepress System Operator Name Role Phone Lisa Mcgregor [facility] Primary Care Provider [phone] Md MICHAELA Alfaro Unavailable Unavailable Encounter Details Date Type Department Care Team (Late st Contact Info) Description 12/20/2023 Documentation Visit [facility] Reproductive Medicine & Infertility [address] [phone] Lucrecia Land MD 111 [facility], [facility] 4 [place] [phone] Social History Tobacco Use Types Packs/Day Years [...] [facility] Rep[facility]ductive Medicine & Infertility [address] [address]86[address] Layla Reid MD 111 [facility], Level 4 [place] [phone] documented as of this encounter Visit Diagnoses Not on filedocumented in this encounter Care Teams Electronic Prepress System Operator Relationship Specialty Start Date End Date Lisa Mcgregor FNP 26 [facility] 185 [place] [phone] PCP - General 05/05/22 Md Alfaro MD 05/05/22 documented as of this encounter
--- OUTSIDE RECORDS SUMMARY | 2024-01-13 07:58 | XMS_ITS | Encounter Summary ---
Author Organization [facility] Address [address] [place] [address] Care Team Providers Care Dovetailer Name Role Phone Lisa Mcgregor [facility] Primary Care Provider [phone] Md MICHAELA Alfaro Unavailable Unavailable Encounter Details Date Type Department Care Team (Late st Contact Info) Description 12/03/2023 Documentation Visit [facility] Reproductive Medicine & Infertility Center - [address] [address] Lucrecia Land MD 111 [facility], Level 4 [place] [phone] Social History Tobacco Use Types Packs/Day Years [...] MD Reproductive Endocrinology and Infertility Fellow (PGY7) [facility] documented in this encounter Plan of Treatment Upcoming Encounters Date Type Department Care Team (Late st Contact Info) Description 01/13/2024 13:15 EST Telemedicine [facility] Reproductive Medicine & Infertility Center - [address] [phone] Layla Reid MD 111 [facility], Level [address] [place] [phone] documented as of this encounter Visit Diagnoses Not on filedocumented in this encounter Care Teams Dovetailer Relationship Specialty Start Date End Date Lisa Mcgregor FNP 26 [facility] [address] [place] [phone] PCP - General 05/05/22 Md Alfaro MD 05/05/22 documented as of this encounter
--- OUTSIDE RECORDS SUMMARY | 2024-01-13 07:59 | XMS_ITS | Encounter Summary ---
[place] [address] Care Team Providers Care Office Administrator Name Role Phone Eleazar Hayes MD Primary Care Provider Encounter Details Date Type Department Care Team (Late st Contact Info) Description 09/17/2022 Orders [place] [address] [facility]ET[facility] & [place] [address] Family history of seizure in son (Primary Dx) Social History Tobacco Use Types Packs/Day Years Used Date Smoking Tobacco: Never Assessed Sex and Gender Information Value Date Recorded Sex Assigned at Female 10/01/2021 9:10 PM EDT Gender Identity Female 10/01/2021 9:10 PM EDT Sexual Orientation Straight 10/01/2021 9: 10 PM EDT documented as of this encounter Progress Notes * Nasreen Dee [facility] - 09/17/2022 5:00 PM EDT In [...] uncertain significance will be tested. AGO2: c.2542G>A, p.([id number]) SETD1A: c.1364_1366del, p.([id number]) CTCF: c.853A>C, p.([id number]) Nasreen Dee, , [facility] Licensed Genetic Counselor [phone] documented in this encounter Plan of Treatment [...] Primary documented in this encounter Care Teams Office Administrator Relationship Specialty Start Date End Date Eleazar Hayes MD [address] [place] [address] PCP - General 01/28/10 documented as of this encounter
--- OUTSIDE RECORDS SUMMARY | 2024-01-13 07:59 | XMS_ITS | Encounter Summary ---
Author Organization [facility] Address [address] [place] [address] Care Team Providers Care Oil Truck Driver Name Role Phone BalbirLisa [facility] Primary Care Provider [phone] Md MICHAELA Alfaro Unavailable Unavailable Encounter Details Date Type Department Care Team (Late st Contact Info) Description 05/15/2022 Lab Requisition [facility] Pathology & Laboratory Medicine - [address] [address] Outr Resulting Lab, Provider Social History Tobacco [...] Description 01/13/2024 13:15 EST Telemedicine [facility] Reproductive Medicine & Infertility Center [address] [address] Layla Reid MD [address] [place] [address], Level 4 [place] [phone] documented as of this encounter Procedures Procedure [...] 11:52 EST) Hold Hold 05/15/2022 19:01 EST [facility] Blood VENOUS BLOOD / Unknown 05/15/2022 11:52 EST 05/15/2022 18:00 EST Provider Outr Resulting Lab LAB INFO SER VICE AND SUPPORT & PHONE RESULT [facility] [address] [place] [address] * HOLD SST (05/15/2022 11:52 EST) Hold Hold 05/15/2022 19:01 EST [facility] Blood VENOUS BLOOD / Unknown 05/15/2022 11:52 EST 05/15/2022 18:00 EST Provider Outr Resulting Lab LAB INFO SER VICE AND SUPPORT & PHONE RESULT [facility] [address] [place] [address] * FSH (05/15/2022 11:52 EST) FSH 4.6 See Note mIU/mL 05/15/2022 19:13 EST [facility] Blood VENOUS BLOOD / Unknown 05/15/2022 11:52 EST 05/15/2022 18:00 EST Narrative [facility] - 05/15/2022 19:13 EST [...] & BLOOD GAS ORDERABLES Performing Organization Address [facility] Co de Phone Number [facility] [address] [place] [address] * MEASLES IGG AB (05/15/2022 11:52 EST) Measles IgG Ab Positive See Note 05/18/2022 8:57 EDT [facility] Comment:Presence of detectab le measles virus IgG antibodies. Blood VENOUS BLOOD / Unknown 05/15/2022 11:52 EST 05/15/2022 18:00 EST Provider Outr Resulting Lab IMMUNOLOGY A ND SEROLOGY ORDERABLES Performing Organization Address [facility] Co de Phone Number [facility] [address] [place] [address] * PROLACTIN (05/15/2022 11:52 EST) Prolactin 4.8 See Note ng/mL 05/15/2022 19:16 EST [facility] Comment: NOTE: Female Reference Ranges: PHYSIOLOGICAL STATUS ?REFERENCE RANGE ? Postmenopausal ?1.8 - 20.3 ng/mL ?9.7 - 208.5 ng/mL Non- ?2.8 - 29.2 ng/mL Blood VENOUS BLOOD / Unknown 05/15/2022 11:52 EST 05/15/2022 18:00 EST Provider Outr Resulting Lab CHEMISTRY & BLOOD GAS ORDERABLES Performing Organization Address City/State/[facility] Co de Phone Number [facility] [address] [place] [address] * ESTRADIOL, ADULTS (05/15/2022 11:52 EST) Pathologist [facility] Estradiol 28 See Note pg/mL 05/15/2022 19:14 EST [facility] Comment: NOTE: FEMALE REFERENCE [...] & BLOOD GAS ORDERABLES Performing Organization Address [facility] Co de Phone Number [facility] [address] [place] [address] * DHEA SULFATE (05/15/2022 11:52 EST) DHEA Sulfate 233 96 - 512 ug/dL 05/18/2022 9:16 EDT [facility] Blood VENOUS BLOOD / Unknown 05/15/2022 11:52 EST 05/15/2022 18:00 EST Provider Outr Resulting Lab CHEMISTRY & BLOOD GAS ORDERABLES Performing Organization Address [facility] de Phone Number [facility] [address] [place] [address] * RUBELLA IGG ANTIBODY (05/15/2022 11:52 EST) Rubella IgG Ab Positive See Note 05/18/2022 9:00 EDT [facility] Comment:Positive for IgG ant ibodies to Rubella virus. Blood VENOUS BLOOD / Unknown 05/15/2022 11:52 EST 05/15/2022 18:00 EST Provider Outr Resulting Lab CHEMISTRY & BLOOD GAS ORDERABLES Performing Organization Address [facility] de Phone Number [facility] [address] [place] [address] documented in this encounter Visit Diagnoses Not on filedocumented in this encounter Care Teams Oil Truck Driver Relationship Specialty Start Date End Date Lisa Mcgregor FNP [address] [place] [address] [place] [phone] PCP - General 05/05/22 Md Alfaro MD 05/05/22 documented as of this encounter
--- OUTSIDE RECORDS SUMMARY | 2024-01-13 07:59 | XMS_ITS | Encounter Summary ---
Author Organization [facility] Address [address] [place] [address] Care Team Providers Care Sound Recordist Name Role Phone Md MICHAELA Alfaro Primary Care Provider Liena ble Encounter Details Date Type Department Care Team (Late st Contact Info) Description 06/06/2013 Results Only [facility] Laboratory Services - [facility] ([facility]) [address] [place], [place] [address] Armond Lockett CNM [address] [place], [place] [address] Social History Tobacco Use Types Packs/Day Years [...] Contact Info) Description 01/13/2024 13:15 EST Telemedicine [facility] Reproductive Medicine & Infertility Center - [facility] [address] [place], [place] [address] Layla Reid MD 111 [facility], [facility], Level 4 [place] [phone] documented as of this encounter Procedures Procedure [...] ? TINY CHUA ? Accession #: ? [id number] : ? 1990 (Age: 23) ??F ?Collect Date: ? 06/06/2013 Location: ? [facility] ? Receive Date: ? 06/08/2013 Provider: ?ARMOND LOCKETT CNM Copy to: ?GLORIA MOORE DIPPING MACHINE OPERATOR ? Specimen/Source: ?Pap Test, Cervix/Endocervix, ThinPrep Imaging [...] Lockett CNAllie PATHOLOGY ORDERABLES Performing Organization Address City/State/[facility] Co de Phone Number [facility] [address] [place] [address] documented in this encounter Visit Diagnoses Not on filedocumented in this encounter Care Teams Sound Recordist Relationship Specialty Start Date End Date Md Alfaro MD PCP - General 08/09/09 05/04/22 documented as of this encounter
--- OUTSIDE RECORDS SUMMARY | 2024-01-13 07:59 | XMS_ITS | Encounter Summary ---
Author Organization [facility] Address [address] [place] [address] Care Team Providers Care Hand Quilter Name Role Phone BalbirLisa [facility] Primary Care Provider Md MICHAELA Alfaro Unavailable Unavailable Encounter Details Date Type Department Care Team (Late st Contact Info) Description 11/29/2023 8:45 EDT Phlebotomy Only [facility] ED Center 2 Phlebotomy [address] [place] [address] Residential Youth Counselor, [facility] Phlebotomy Encounter for assisted reproductive fertility [...] Contact Info) Description 01/13/2024 13:15 EST Telemedicine [facility] Reproductive Medicine & Infertility Center - [facility] [address] [place], [place] [phone] Layla Reid MD 111 [facility], Level [address] [place] [phone] documented as of this encounter Procedures Procedure Name Priority Date/Time Associated Diagnosis Comments ESTRADIOL, ADULTS Routine 11/29/2023 8:4 3 EDT Encounter for assisted reproductive fertility procedure cycle documented in this encounter Results * ESTRADIOL, ADULTS (11/29/2023 8:43 EDT) Estradiol 31 See Note pg/mL 11/29/2023 10:00 EDT [facility] Comment: NOTE: FEMALE [...] Robb MD CHEMISTRY & BLOOD G ORDERABLES [facility] [address] [place], [place] [address] documented in this encounter Visit Diagnoses Diagnosis Encounter for assisted reproductive fertility procedure cycle documented in this encounter Care Teams Hand Quilter Relationship Specialty Start Date End Date Lisa Mcgregor FNP 26 [facility] [address] [place] [phone] PCP - General 05/05/22 Md Alfaro MD 05/05/22 documented as of this encounter
--- OUTSIDE RECORDS SUMMARY | 2024-01-13 07:59 | XMS_ITS | Encounter Summary ---
Author Organization [facility] Address [address] [place] [address] Care Team Providers Care Core Blower Operator Name Role Phone Md MICHAELA Alfaro Primary Care Provider Erich rosenbaum Encounter Details Date Type Department Care Team (Late st Contact Info) Description 10/24/2015 Results Only [facility]- [facility] [phone] Radha De Jesus, [address] [place] [phone] Social History Tobacco Use Types Packs/Day Years [...] Contact Info) Description 01/13/2024 13:15 EST Telemedicine [facility] Reproductive Medicine & Infertility Center - [address] [phone] Layla Reid MD 111 [facility], Level [address] [place] [phone] documented as of this encounter Procedures Procedure [...] Name: ? ERROLKALEETINY ? Accession #: ? [id number] : ? 1990 (Age: 25) ??F ?Collect Date: ? 10/24/2015 Location: ? [facility] ? Receive Date: ? 10/25/2015 Provider: ?RADHA DE JESUS MACHINE OPERATOR PICKER Copy to: ?GLORIA MOORE MACHINE OPERATOR PICKER ? Specimen/Source: ?Pap Test, Cervix/Endocervix, ThinPrep Imaging [...] Report Date: ??10/31/2015 11:00 End of Report [facility] 10/24/2015 10/25/2015 Radha De Jesus MACHINE OPERATOR PICKER PATHOLOGY ORDERABLES [facility] [address] [place] [address] documented in this encounter Visit Diagnoses Not on filedocumented in this encounter Care Teams Core Blower Operator Relationship Specialty Start Date End Date Md Alfaro MD PCP - General 08/09/09 05/04/22 documented as of this encounter
--- OUTSIDE RECORDS SUMMARY | 2024-01-13 07:59 | XMS_ITS | Encounter Summary ---
Author Organization Health system Address [address] [place] [address] Care Team Providers Care Fraud Prevention Analyst Name Role Phone Md MICHAELA Alfaro Primary Care Provider Erich rosenbaum Encounter Details Date Type Department Care Team (Late st Contact Info) Description 05/06/2018 Results Only [facility]- [facility] [phone] Radha De Jesus, [address] [place] [phone] Social History Tobacco Use Types Packs/Day Years [...] Info) Description 01/13/2024 13:15 EST Telemedicine [facility] Reproductive Medicine & Infertility Center - [address] [address] Layla Reid MD 111 [facility], Level [address] [place] [phone] documented as of this encounter Procedures Procedure [...] ? MANDABRAULIOY Flor ? Accession #: ? [id number] : ? 1990 (Age: 27) ??F ?Collect Date: ? 05/06/2018 Location: ? [facility] ? Receive Date: ? 05/06/2018 Provider: ?RADHA DE JESUS RAMP SERVICE EMPLOYEE Copy to: ?GLORIA MOORE RAMP SERVICE EMPLOYEE ? Specimen/Source: ?Pap Test, Cervix, ThinPrep Imaging [...] Report Date: ??05/09/2018 15:06 End of Report [facility] 05/06/2018 05/06/2018 Radha De Jesus RAMP SERVICE EMPLOYEE PATHOLOGY ORDERABLES [facility] [address] [place] [address] documented in this encounter Visit Diagnoses Not on filedocumented in this encounter Care Teams Fraud Prevention Analyst Relationship Specialty Start Date End Date Md Alfaro MD PCP - General 08/09/09 05/04/22 documented as of this encounter
--- OUTSIDE RECORDS SUMMARY | 2024-01-13 07:59 | XMS_ITS | Encounter Summary ---
Author Organization [facility] Address [address] [place] [address] Care Team Providers Care Hypo Splasher Name Role Phone BalbirLisa [facility] Primary Care Provider [phone] Md MICHAELA Alfaro Unavailable Unavailable Encounter Details Date Type Department Care Team (Late st Contact Info) Description 11/02/2023 Orders Only [facility] Reproductive Medicine & Infertility Center - [facility] [address] [place] [address] Aleisha Che RN Social History Tobacco Use [...] Description 01/13/2024 13:15 EST Telemedicine [facility] Reproductive Medicine & Infertility Center [address] [address] Layla Reid MD [address] [place] [address], [address] [place] [phone] documented as of this encounter Visit Diagnoses Not on filedocumented in this encounter Care Teams Hypo Splasher Relationship Specialty Start Date End Date Lisa Mcgregor FNP [address] [place] [address] [address] [place] [phone] PCP - General 05/05/22 Md Alfaro MD 05/05/22 documented as of this encounter
--- OUTSIDE RECORDS SUMMARY | 2024-01-13 07:59 | XMS_ITS | Encounter Summary ---
Author Organization [facility] Address [address] [place] [address] Care Team Providers Care Health Psychologist Name Role Phone Md MICHAELA Alfaro Primary Care Provider Erich rosenbaum Encounter Details Date Type Department Care Team (Late st Contact Info) Description 08/08/2009 Results Only [facility] Laboratory Services - [facility] ([facility]) [address] [place], [place] [address] Radha De Jesus, [address] [place] [address] Social History Tobacco Use Types [...] [place] Reproductive Medicine & Infertility Center - [facility] [address] [place], [place] [phone] Layla Reid MD 111 [facility], Level [address] [place] [address] documented as of this encounter [...] ? TINY CHUA ? Accession #: ? [id number] ? : ? 1990 (Age: 19) ??F ?Collect Date: ? 08/08/2009 ? Location: ? [facility] ? Receive Date: ? 08/09/2009 ? Provider: ?RADHA REINALDO STRIP WINDER ? Copy to: ? Specimen/Source: ?Pap Test, [...] [facility] 08/08/2009 08/09/2009 Radha De Jesus STRIP WINDER PATHOLOGY ORDERABLES [facility] [address] [place] [address] documented in this encounter Visit Diagnoses Not on filedocumented in this encounter Care Teams Health Psychologist Relationship Specialty Start Date End Date Md Alfaro MD PCP - General 08/09/09 05/04/22 documented as of this encounter
--- OUTSIDE RECORDS SUMMARY | 2024-01-13 07:59 | XMS_ITS | Encounter Summary ---
Author Organization [facility] Address [address] [place] [address] Care Team Providers Care Maintenance Pipefitter Name Role Phone Balbir Lisa [facility] Primary Care Provider [phone] Md MICHAELA Alfaro Unavailable Unavailable Reason for Referral * CEMENT RUBBER (Routine/Next Available) - Closed Specialty Diagnoses / Procedures Referred By Contac t Referred To Contact Diagnoses Secondary oligomenorrhea Fertility testing Procedures US HYSTEROSONOGRAPHY Elizabeth Ingram DO [facility] DRIVER EDUCATION INSTRUCTOR/KIANNA Referral ID Status Reason Start Date Expiration Date Visits Re quested Visits Authorized [id number] Closed 05/13/2022 1 1 Reason for Visit * CEMENT RUBBER (Routine/Next Available) - Closed Specialty Diagnoses / Procedures Referred By Contac t Referred To Contact Diagnoses Secondary oligomenorrhea Fertility testing Procedures US HYSTEROSONOGRAPHY Elizabeth Ingram DO [facility] DRIVER EDUCATION INSTRUCTOR/KIANNA Referral ID Status Reason Start Date Expiration Date Visits Re quested Visits Authorized [id number] Closed 05/13/2022 1 1 Encounter Details Date Type Department Care Team (Latest Contact Info) Description 05/21/2022 10:33 EDT - 05/21/2022 23:59 EDT Hospital Encounter [facility] OBGYN Services - Main [place] [address], [place] [id number] Secondary oligomenorrhea; Fertility testing Discharge Disposition: Home [...] Ingram DO - 05/21/2022 1050 EDT Following [employer] message sent to patient: Marcio Franks, I [...] DO Juan Jose Reproductive Endocrinology & Infertility 05/21/2022 documented in this encounter Plan of Treatment Upcoming Encounters Date Type Department Care Team (Late st Contact Info) Description 01/13/2024 13:[address] [facility] Reproductive Medicine & Infertility Center - [address] [address] Layla Reid MD [address] [place] [address], [address] [place] [address] documented as of this encounter [...] view Impression ========= Sonohyst T HyCoSy - [id number] + [id number] Normal anteverted uterus, thin endometrium. 3D imaging was utilized. Coronal rendered image of the uterus during saline instillation shows a normal uterine cavity. HyCoSy shows bilateral tubal patency. Normal appearing ovaries, combined AFC R 34. Transvaginal 3D - [id number] I have personally reviewed and adjusted the [...] view Impression ========= Sonohyst T HyCoSy - [id number] + 24435 Normal anteverted uterus, thin endometrium. 3D imaging was utilized. Coronal rendered image of the uterus duringsaline instillation shows a normal uterine cavity. HyCoSy shows bilateral tubal patency. Normal appearing ovaries, combined AFC R 34. Transvaginal 3D - [id number] I have personally reviewed and adjusted the images for the 3D renderingprior to interpretation. Follow-up ======== with Dr. Ingram Comment ======== Z31.41 encounter for fertility testing,?Ultrasound findings discussedw/patient. DATE OF SERVICE: 05/21/2022 Elizabeth Ingram DO IMG US OB ORDERABLE S documented in this encounter Visit Diagnoses Diagnosis Secondary oligomenorrhea Scanty or infrequent menstruation Fertility testing documented in this encounter Care Teams Maintenance Pipefitter Relationship Specialty Start Date End Date Lisa Mcgregor FNP [address] [place] [phone] PCP - General 05/05/22 Md Alfaro MD 05/05/22 documented as of this encounter
--- OUTSIDE RECORDS SUMMARY | 2024-01-13 07:59 | XMS_ITS | Encounter Summary ---
Author Organization [facility] [place] [address] Care Team Providers Care Kier Boiler Name Role Phone Eleazar Hayes MD Primary Care Provider [phone] Encounter Details Date Type Department Care Team (Latest Contact Info) Description 10/06/2022 1:38 PM EDT - 10/06/2022 11:59 PM EDT Hospital [place] [phone] Family history of seizure in son Discharge [...] son documented in this encounter Care Teams Kier Boiler Relationship Specialty Start Date End Date Eleazar Hayes MD [address] [place] [address] PCP - General 01/28/10 documented as of this encounter
--- OUTSIDE RECORDS SUMMARY | 2024-01-13 07:59 | XMS_ITS | Encounter Summary ---
Author Organization [facility] Address [address] [place] [address] Care Team Providers Care Wheat Grower Name Role Phone BalbirLisa [facility] Primary Care Provider Md MICHAELA Alfaro Unavailable Unavailable Encounter Details Date Type Department Care Team (Late st Contact Info) Description 12/01/2023 8:45 EDT Phlebotomy Only [facility] ED Center 2 Phlebotomy [address] [place] [address] Project Structural Engineer, [facility] Phlebotomy Encounter for assisted reproductive fertility procedure [...] Contact Info) Description 01/13/2024 13:15 EST Telemedicine [facility] Center Reproductive Medicine & Infertility Center - [facility] [address] [place], [place] [phone] Layla Reid MD [address] [facility], [address] [place] [phone] documented as of this encounter Procedures Procedure Name Priority Date/Time Associated Diagnosis Comments ESTRADIOL, ADULTS Routine 12/01/2023 8:5 0 EDT Encounter for assisted reproductive fertility procedure cycle documented in this encounter Results * ESTRADIOL, ADULTS (12/01/2023 8:50 EDT) Estradiol 124 See Note pg/mL 12/01/2023 9:57 EDT [facility] Comment: NOTE: FEMALE REFERENCE RANGES: [...] Robb MD CHEMISTRY & BLOOD G ORDERABLES [facility] [address] [place], [place] [phone] documented in this encounter Visit Diagnoses Diagnosis Encounter for assisted reproductive fertility procedure cycle documented in this encounter Care Teams Wheat Grower Relationship Specialty Start Date End Date Lisa Mcgregor FNP [address] [facility] [address] [place] [phone] PCP - General 05/05/22 Md Alfaro MD 05/05/22 documented as of this encounter
--- OUTSIDE RECORDS SUMMARY | 2024-01-13 07:59 | XMS_ITS | Encounter Summary ---
Author Organization [facility] Address [address] [place] [address] Care Team Providers Care Repair Tech Name Role Phone BalbirLisa [facility] Primary Care Provider [phone] Md MICHAELA Alfaro Unavailable Unavailable Encounter Details Date Type Department Care Team (Late st Contact Info) Description 11/26/2023 8:45 EDT Phlebotomy Only [facility] ED Center 2 Phlebotomy [address] [place] [address] Manager Inside, [employer] Phlebotomy Encounter for assisted reproductive [...] Center - [facility] [address] [place], [place] [phone] Layla Reid MD 111 [facility], [address] [place] [address] documented as of this encounter Procedures Procedure Name Priority Date/Time Associated Diagnosis Comments PROGESTERONE Routine 11/26/2023 9:29 EDT Encounter for assisted reproductive fertility procedure cycle ESTRADIOL, ADULTS Routine 11/26/2023 9:2 9 EDT Encounter for assisted reproductive fertility procedure cycle documented in this encounter Results * ESTRADIOL, ADULTS (11/26/2023 9:29 EDT) Estradiol 13 See Note pg/mL 11/26/2023 11:16 EDT [facility] Comment: NOTE: FEMALE [...] Robb MD CHEMISTRY & BLOOD G ORDERABLES [facility] [address] [place] [address] * PROGESTERONE (11/26/2023 9:29 EDT) Progesterone 0.4 See Table ng/mL 11/26/2023 11:17 EDT [facility] Comment: Female Reference [...] & BLOOD G ORDERABLES Performing Organization Address [facility]/State/ZIP Co de Phone Number [facility] [address] [place] [address] documented in this encounter Visit Diagnoses Diagnosis Encounter for assisted reproductive fertility procedure cycle documented in this encounter Care Teams Repair Tech Relationship Specialty Start Date End Date Lisa Mcgregor FNP [address] [place] [address] [address] [place] [phone] PCP - General 05/05/22 Md Alfaro MD 05/05/22 documented as of this encounter
--- OUTSIDE RECORDS SUMMARY | 2024-01-13 07:59 | XMS_ITS | Clinical Summary ---
Author Organization [facility] Address [facility] [place] [address] Care Team Providers Care Chief Orthoptist Name Role Phone Eleazar Hayes MD Primary Care Provider [phone] Allergies Active Allergy Reactions Criticality Noted Date [...] Influenza standard series) 11/07/2023 12/26/2014 Care Teams Chief Orthoptist Relationship Specialty Start Date End Date Eleazar Hayes MD [address] [place] [address] PCP - General 01/28/10
--- OUTSIDE RECORDS SUMMARY | 2024-01-13 07:59 | XMS_ITS | Encounter Summary ---
Author Organization [facility] Address [address] [place] [address] Care Team Providers Care Tread Builder Name Role Phone Lisa Mcgregor [facility] Primary Care Provider [phone] Md MICHAELA Alfaro Unavailable Unavailable Encounter Details Date Type Department Care Team (Late st Contact Info) Description 02/17/2023 Lab Requisition [facility] Pathology & Laboratory Medicine [address] [address] Tatyana Daniels MD [address] [place] [address] [place] [address] Encounter for other general examination [...] Medical Center Reproductive Medicine & Infertility Center [address] [address] Layla Reid MD [address] [facility], [address] [place] [address] documented as of this [...] Risk types, PCR Negative Negative 02/26/2023 17:29 [facility] Comment:No E6 or E7 mRNA is detected from HPV types 16,18,31,33,35,39,45,51,52,56,58,59,66, and 68 by pharmacy general manager mediated amplification. Pap Test CERVIX UTERI STRUCTURE / Unknown 02/16/2023 15:30 EST 02/24/2023 15:20 EST Tatyana Daniels MD MICROBIOLOGY - GENER AL ORDERABLES [facility] [address] [place] [address] * PAP TEST (02/16/2023 15:30 EST) Specimens A. Cervix and/or Endocervix , ThinPrep Imaging System with Manual Evaluation 02/26/2023 17:29 EST [facility] Specimen Adequacy Satisfactory for Evaluation - transformation zone component absent 02/26/2023 17:29 [facility] General Categorization Negative for intraepithelial lesion or malignancy 02/26/2023 17:29 [facility] Descriptive Diagnosis Shift in annia present suggestive of bacterial vaginosis. 02/26/2023 17:29 [facility] Attestation . 02/26/2023 17:29 [facility] at 1729 Clinical History See below 02/27/20 17:29 EST [facility] HPV The result for the Human Papillomavirus (HPV) Detection-High Risk Types is Negative. No E6 or E7 mRNA is detected from HPV types 16,18,31,33,35,39 ,45,51,52,56,58,5 9,66, and 68 by pharmacy general manager mediated amplification.Leyda ting was performed on specimen [id number] and was resulted on 02/26/2023 1729 EST by DEIRDRE, LAB INSTRUMENT RESULTS IN 02/26/2023 17:29 [facility] Performing Lab [facility] 02/26/2023 17:29 [facility] Scanned Images 02/26/2023 17:29 [facility] Pap Test CERVIX UTERI STRUCTURE / Unknown 02/16/2023 15:30 EST 02/17/2023 13:40 EST Tatyana Daniels MD PATHOLOGY ORDERABLES [facility] [address] [place] [address] documented in this encounter Visit Diagnoses Diagnosis Encounter for other general examination documented in this encounter Care Teams Tread Builder Relationship Specialty Start Date End Date Lisa Mcgregor FNP [address] [place] [phone] PCP - General 05/05/22 Md Alfaro MD 05/05/22 documented as of this encounter
--- OUTSIDE RECORDS SUMMARY | 2024-01-13 07:59 | XMS_ITS | Encounter Summary ---
Author Organization [facility] Address [address] [place] [address] Care Team Providers Care Certified Wellness Program Manager Name Role Phone BalbirLisa [facility] Primary Care Provider [phone] Md MICHAELA Alfaro Unavailable Unavailable Reason for Visit * Reason Comments Infertility Baseline Encounter Details Date Type Department Care Team (Late st Contact Info) Description 11/26/2023 8:00 EDT Procedure visit [facility] Center Reproductive Medicine & Infertility Center - [facility] [address] [place], [place] [phone] Sheila Robb MD 111 [facility], [address] [place] [address] Encounter for assisted reproductive fertility [...] Estradiol 13 See Note pg/mL Prior Ovarian Hardy Testing: FSH: 4.6 (05/15/2022) AMH: 5.8 (09/06/23) [...] resident/fellow at the time of the visit. Cieragree with the findings and the plan of care documented in the resident's/fellow's note. documented in this encounter Plan of Treatment Upcoming Encounters Date Type Department Care Team (Late st Contact Info) Description 01/13/2024 13:15 EST Telemedicine [facility] Reproductive Medicine & Infertility Center [address] [address] Layla Reid MD [address] [place] [address], [address] [place] [address] Scheduled Orders Name Type Priority [...] 1,060 See Note pg/mL 12/05/2023 9:02 EDT [facility] Comment: NOTE: FEMALE [...] Robb MD CHEMISTRY & BLOOD G ORDERABLES [facility] [address] [place] [address] * ESTRADIOL, ADULTS (12/03/2023 8:45 EDT) Estradiol 392 See Note pg/mL 12/03/2023 10:07 EDT [facility] Comment: NOTE: FEMALE [...] BLOOD G ORDERABLES Performing Organization Address [facility] Phone Number [facility] [address] [place] [address] * ESTRADIOL, ADULTS (12/01/2023 8:50 EDT) Estradiol 124 See Note pg/mL 12/01/2023 9:57 EDT [facility] Comment: NOTE: FEMALE [...] Unknown 12/01/2023 8:50 EDT 12/01/2023 9:07 EDT Sehila Robb MD CHEMISTRY & BLOOD G ORDERABLES Performing Organization Address [facility] de Phone Number [facility] [address] [place] [address] * ESTRADIOL, ADULTS (11/29/2023 8:43 EDT) Estradiol 31 See Note pg/mL 11/29/2023 10:00 EDT [facility] Comment: NOTE: FEMALE [...] & BLOOD G ORDERABLES Performing Organization Address City/State/[facility] Co de Phone Number [facility] [address] [place] [phone] * ESTRADIOL, ADULTS (11/26/2023 9:29 EDT) Estradiol 13 See Note pg/mL 11/26/2023 11:16 EDT [facility] Comment: NOTE: FEMALE [...] Robb MD CHEMISTRY & BLOOD G ORDERABLES [facility] [address] [place] [address] * PROGESTERONE (11/26/2023 9:29 EDT) Progesterone 0.4 See Table ng/mL 11/26/2023 11:17 EDT [facility] Comment: Female Reference [...] Robb MD CHEMISTRY & BLOOD G ORDERABLES [facility] [address] [place] [address] documented in this encounter Visit Diagnoses Diagnosis Encounter for assisted reproductive fertility procedure cycle- Primary documented in this encounter Care Teams Certified Wellness Program Manager Relationship Specialty Start Date End Date Lisa Mcgregor FNP [address] [facility] [address] [place] [phone] PCP - General 05/05/22 Md Alfaro MD 05/05/22 documented as of this encounter
--- OUTSIDE RECORDS SUMMARY | 2024-01-13 07:59 | XMS_ITS | Encounter Summary ---
Author Organization [facility] Address [address] [place] [address] Care Team Providers Care Limited Radiology Technician Name Role Phone Md MICHAELA Alfaro Primary Care Provider Erich ble Encounter Details Date Type Department Care Team (Late st Contact Info) Description 02/26/2011 Results Only [facility] Laboratory Services - [facility] [address] [place], [place] [address] Gloria Ceja FNP [address] [place], [place] [address] Social History Tobacco Use Types Packs/Day Years [...] Info) Description 01/13/2024 13:15 EST Telemedicine [facility] Reproductive Medicine & Infertility Center - [facility] [address] [place] [address] Layla Reid MD [address] [facility], [address] [place] [phone] documented as of this encounter Procedures Procedure [...] ? TINY CHUA ? Accession #: ? [id number] : ? 1990 (Age: 20) ??F ?Collect Date: ? 02/26/2011 Location: ? [facility] ? Receive Date: ? 03/04/2011 Provider: ?GLORIA CEJA [facility] Copy to: ? Specimen/Source: ?Pap Test, Cervix/Endocervix, [...] Report ARACELI CH[facility] 02/26/2011 03/04/2011 Gloria Ceja YARD SPECIALIST PATHOLOGY ORDERABLES [facility] [address] [place] [address] documented in this encounter Visit Diagnoses Not on filedocumented in this encounter Care Teams Limited Radiology Technician Relationship Specialty Start Date End Date Md Alfaro MD PCP - General 08/09/09 05/04/22 documented as of this encounter
--- OUTSIDE RECORDS SUMMARY | 2024-01-13 07:59 | XMS_ITS | Encounter Summary ---
Author Organization [facility] Address [address] [place] [address] Care Team Providers Care Events Associate Name Role Phone Md MICHAELA Alfaro Primary Care Provider UnavailLisa Jeffrey Primary Care Provider [phone] Md MICHAELA Alfaro Unavailable Unavailable Encounter Details Date Type Department Care Team (Late st Contact Info) Description 01/17/2021 Lab Requisition [facility] Pathology & Laboratory Medicine - [address] [address] Outr Resulting Lab, Provider Social History Tobacco [...] Contact Info) Description 01/13/2024 13:15 EST Telemedicine [facility] Reproductive Medicine & Infertility Center [address] [address] Layla Reid MD 111 [facility], [address] [place] [phone] documented as of this encounter Procedures Procedure Name Priority Date/Time Associated Diagnosis Comments CHLAMYDIA/N. GONORRHOEAE AMPLIFIED NUCLEIC ACID Routine 01/16/2021 14:30 EST documented in this encounter Results * CHLAMYDIA/N. GONORRHOEAE AMPLIFIED RNA (01/16/2021 14:30 EST) Neisseria gonorrhoeae Result Negative Negative 01/20/2021 14:[address] [facility] Chlamydia trachomatis Result Negative Negative 01/20/2021 14:[address] [facility] Swab ENTIRE ENDOCERVIX / Unknown 01/16/2021 14:30 EST 01/17/2021 16:58 EST Provider Outr Resulting Lab MICROBIOLOGY - GENERAL ORDERABLES Performing Organization Address City/State/[facility] Co de Phone Number [facility] [address] [place] [address] documented in this encounter Visit Diagnoses Not on filedocumented in this encounter Care Teams Events Associate Relationship Specialty Start Date End Date Md Alfaro MD PCP - General 08/09/09 05/04/22 Lisa Mcgregor FNP [address] [place] [phone] PCP - General 05/05/22 Md Alfaro MD 05/05/22 documented as of this encounter
--- OUTSIDE RECORDS SUMMARY | 2024-01-13 07:59 | XMS_ITS | Encounter Summary ---
Author Organization [facility] Address [address] [place] [address] Care Team Providers Care Camera Repair Technician Name Role Phone BalbirRaniy [facility] Primary Care Provider [phone] Md MICHAELA Alfaro Unavailable Unavailable Reason for Visit * Reason Onset Date Comments Coordination Of Care 11/29/2023 Encounter Details Date Type Department Care Team (Late st Contact Info) Description 11/29/2023 Telephone [facility] Reproductive Medicine & Infertility Center - [facility] [address] [place] [address] Olena Tucker RN [address] [place] [address] Coordination Of Care Social History Tobacco Use [...] Encounter - Olena Tucker RN - 11/29/2023 EDT Tiny called back. Reviewed that she [...] Info) Description 01/13/2024 13:15 EST Telemedicine [facility] Reproductive Medicine & Infertility Center - [address] [address] Layla Reid MD 111 [facility], [address] [place] [phone] documented as of this encounter Visit Diagnoses Not on filedocumented in this encounter Care Teams Camera Repair Technician Relationship Specialty Start Date End Date Lisa Mcgregor FNP 26 [facility] [address] [place] [phone] PCP - General 05/05/22 Md Alfaro MD 05/05/22 documented as of this encounter
--- OUTSIDE RECORDS SUMMARY | 2024-01-13 07:59 | XMS_ITS | Encounter Summary ---
Author Organization [facility] Address [address] [place] [address] Care Team Providers Care Balancing Machine Operator Name Role Phone BalbirRaniy [facility] Primary Care Provider [phone] Md MICHAELA Alfaro Unavailable Unavailable Reason for Visit * Reason Comments Advice Only Encounter Details Date Type Department Care Team (Late st Contact Info) Description 09/17/2023 13:30 EDT Office Visit [facility] Center Reproductive Medicine & Infertility Center - [address] [id number] Layla Reid MD [address] [facility], [address] [place] [address] Infertility management (Primary Dx); Female [...] encounter): 33 Patient : 1990 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 She and her would like to conceive together but he had a vasectomy performed in 2019. They [place] with [place] [facility] [place] reversal but this was cost prohibitive for them, so opted for IVF/ICSI after TESE. Pete underwent TESE earlier this month and has 4 vials cryopreserved, with 2-3 twitch-2+ prog sperm per HPF. Prior infertility treatment: None They live in [place], [place]. 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 [employer] Past Medical History - MSK issues Past [...] MD Reproductive Endocrinology and Infertility Fellow (PGY6) [facility] Attestation statement: I saw and counseled [...] Info) Description 01/13/2024 13:15 EST Telemedicine [facility] - [address] [address] Layla Reid MD [address] [place] [address], [address] [place] [address] documented as of this encounter Procedures Procedure Name Priority Date/Time Associated Diagnosis Comments COMPLETE BLOOD COUNT Routine 09/17/2023 14:20 EDT Infertility management TYPE AND SCREEN Routine 09/17/2023 14:20 EDT Infertility management documented in this encounter Results * TYPE AND SCREEN (09/17/2023 14:20 EDT) ABO O 09/17/2023 15:38 EDT [facility] Rh Factor Positive 09/17/2023 15:38 T [facility] Antibody Screen Negative 09/17/2023 15:38 [facility] Specimen Expires: 09/20/2023 @ 23:59 09/17/2023 15:38 [facility] Blood VENOUS BLOOD / Unknown Venipuncture / Unknown 09/17/2023 14:20 EDT 09/17/2023 14:29 EDT Lucrecia Land MD BLOOD BANK TESTS Performing Organization Address City/State/[facility] Co de Phone Number [facility] [address] [place] [address] * COMPLETE BLOOD COUNT (09/17/2023 14:20 EDT) WBC 7.91 4.00 - 12.40 K/cmm 09/17/2023 14:53 [facility] RBC 4.47 3.86 - 5.04 M/cmm 09/17/2023 14:53 [facility] Hemoglobin 13.8 11.6 - 15.2 g/dL 09/17/2023 14:53 [facility] HCT 40.2 34.9 - 44.4 % 09/17/2023 14:53 [facility] MCV 90 81 - 98 fL 09/17/2023 14:53 [facility] MCH 30.9 26.7 - 33.3 pg 09/17/2023 14:53 [facility] MCHC 34.3 32.1 - 35.9 g/dL 09/17/2023 14:53 [facility] RDW-CV 12.1 <14.7 % 09/17/2023 14:53 [facility] RDW-SD 39.7 <50.4 fl 09/17/2023 14:53 [facility] PLT 191 141 - 377 K/cmm 09/17/2023 14:53 [facility] MPV 11.9 9.5 - 12.7 fL 09/17/2023 14:53 EDT [facility] Blood VENOUS BLOOD / Unknown Venipuncture / Unknown 09/17/2023 14:20 EDT 09/17/2023 14:46 EDT Lucrecia Land MD HEMATOLOGY & PF4 ORDERABLES [facility] [address] [place] [address] documented in this encounter Visit Diagnoses Diagnosis [...] 11/26/2023 added in this encounter Care Teams Balancing Machine Operator Relationship Specialty Start Date End Date Lisa Mcgregor FNP [address] [place] [phone] PCP - General 05/05/22 Md Alfaro MD 05/05/22 documented as of this encounter
--- OUTSIDE RECORDS SUMMARY | 2024-01-13 07:59 | XMS_ITS | Encounter Summary ---
Author Organization [facility] Address [address] [place] [address] Care Team Providers Care Briquette Maker Name Role Phone Lisa Mcgregor [facility] Primary Care Provider [phone] Md MICHAELA Alfaro Unavailable Unavailable Reason for Referral * GROUP CONTRACT ANALYST (Routine/Next Available) - Authorization Not Required Specialty Diagnoses / Procedures Referred By Contunique quiñones Referred To Contact Diagnoses Encounter for assisted reproductive fertility cycle Procedures BASELINE Lucrecia Barakat MD [address] [place] [phone] Referral ID Status Reason Start Date Expiration Date Visits Requested Visits Authorized [id number] Authorization Not Required 11/01/2023 1 1 Reason for Visit * GROUP CONTRACT ANALYST (Routine/Next Available) - Authorization Not Required Specialty Diagnoses / Procedures Referred By Jalil quiñones Referred To Contact Diagnoses Encounter for assisted reproductive fertility cycle Procedures US BASELINE Lucrecia Barakat MD [address] [phone] Referral ID Status Reason Start Date Expiration Date Visits Requested Visits Authorized [id number] Authorization Not Required 11/01/2023 1 1 Encounter Details Date Type Department Care Team (Latest Contact Info) Description 11/26/2023 7:25 EDT - 11/26/2023 23:59 EDT Hospital Encounter [facility] OBGYN Services - [address] [address] Encounter for assisted reproductive fertility cycle Discharge [...] Contact Info) Description 01/13/2024 13:15 EST Telemedicine [facility] Reproductive Medicine & Infertility Center - [address] [phone] Layla Reid MD [address] [place] [address], [address] [place] [address] documented as of this encounter [...] free fluid visualized Impression ========= Baseline - 82028 with mock as above Follow-up ======== per [...] free fluid visualized Impression ========= Baseline - 74773 with mock as above Follow-up ======== per KIANNA Comment ======== Mock CX 3 Fund 7 transf 6 Z31.83 encounter for assisted reproductive fertility procedure cycle DATE OF SERVICE: 11/26/2023 Lucrecia Land MD [facility] ORDERA BL[facility] documented in this encounter Visit Diagnoses Diagnosis Encounter for assisted reproductive fertility cycle Encounter for assisted reproductive fertility procedure cycle documented in this encounter Care Teams Briquette Maker Relationship Specialty Start Date End Date Lisa Mcgregor FNP [address] [facility] [address] [place] [phone] PCP - General 05/05/22 Md Alfaro MD 05/05/22 documented as of this encounter
--- OUTSIDE RECORDS SUMMARY | 2024-01-13 07:59 | XMS_ITS | Encounter Summary ---
Author Organization [facility] Address [address] [place] [address] Care Team Providers Care Radiator Tester Name Role Phone Lisa Mcgregor [facility] Primary Care Provider [phone] Md MCIHAELA Alfaro Unavailable Unavailable Reason for Referral * PARAMEDIC (Routine/Next Available) - Closed Specialty Diagnoses / Procedures Referred By Contac t Referred To Contact Diagnoses Secondary oligomenorrhea Fertility testing Procedures US HYSTEROSONOGRAPHY Elizabeth Ingram DO [facility] PHYSICAL EDUCATION PROFESSOR/KIANNA Referral ID Status Reason Start Date Expiration Date Visits Re quested Visits Authorized [id number] Closed 05/13/2022 1 1 Reason for Visit * Reason Comments New Patient Visit Infertility, partner with history of vasectomy * Consult (Routine) - Receiving Office to Obtain Authorization Specialty Diagnoses / Procedures Referred By Contac t Referred To Contact Reproductive Endocrinology and Infertility Diagnoses Encounter for male factor infertility in female patient Female infertility of other origin Tatyana Daniels MD [address] [place] [address] [place] [address] [facility] Kianna [address] [place] [address] Referral ID Status Reason Start Date Expiration Date Visits Requested Visits Authorized [id number] Receiving Office to Obtain Authorization 1 1 Encounter Details Date Type Department Care Team (Latest Contact Info) Description 05/13/2022 13:00 EST Telemedicine [facility] Reproductive Medicine & Infertility Center [address] [address] Elizabeth Ingram, Secondary oligomenorrhea (Primary Dx); Acne [...] Elizabeth Ingram DO - 05/13/2022 1300 EST [facility] Reproductive Medicine Telehealth Visit Chief Complaint Patient presents with ??? New Patient Visit Infertility, partner with history of vasectomy Tiny, 31 y.o. is contacted for an (audio-visual) Telehealth visit. Today's visit was provided through telemedicine conferencing: Using [employer] platform. Consent: The concept of telemedicine?? has [...] consult with [place] [facility] [place] reversal but this is [...] in January 2021. 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 They live in [place], [place]. Menstrual and Endocrine History LMP Patient's [...] Augmentin [Amoxicillin-Pot Clavulanate] Rash Review of Systems PHYSICAL EDUCATION PROFESSOR ROS Complete: Negative except as above. 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 She prefers these be done at [facility], orders faxed. ?? In terms of preconception [...] DO, PGY6 Fellow Reproductive Endocrinology & Infertility [facility] 05/13/2022 * Sheila Robb MD - [...] Contact Info) Description 01/13/2024 13:15 EST Telemedicine [facility] Reproductive Medicine & Infertility Center - [address] [phone] Layla Reid MD [address] [place] [address], [address] [place] [address] documented as of this encounter [...] view Impression ========= Sonohyst T HyCoSy - 82571 + 83031 Normal anteverted uterus, thin endometrium. 3D imaging was utilized. Coronal rendered image of the uterus during saline instillation shows a normal uterine cavity. HyCoSy shows bilateral tubal patency. Normal appearing ovaries, combined AFC R 34. Transvaginal 3D - 29907 I have personally reviewed and adjusted the [...] view Impression ========= Sonohyst T HyCoSy - 26748 + 90528 Normal anteverted uterus, thin endometrium. 3D imaging was utilized. Coronal rendered image of the uterus duringsaline instillation shows a normal uterine cavity. HyCoSy shows bilateral tubal patency. Normal appearing ovaries, combined AFC R 34. Transvaginal 3D - 56470 I have personally reviewed and adjusted the [...] testing documented in this encounter Care Teams Radiator Tester Relationship Specialty Start Date End Date Lisa Mcgregor FNP [address] [place] [phone] PCP - General 05/05/22 Md Alfaro MD 05/05/22 documented as of this encounter
--- OUTSIDE RECORDS SUMMARY | 2024-01-13 07:59 | XMS_ITS | Encounter Summary ---
Author Organization [facility] Address [address] [place] [address] Care Team Providers Care In Home Sales Representative Name Role Phone Md MICHAELA Alfaro Primary Care Provider Unavaila Lisa Yang [facility] Primary Care Provider [phone] Md MICHAELA Alfaro Unavailable Unavailable Encounter Details Date Type Department Care Team (Late st Contact Info) Description 05/26/2019 Lab Requisition [facility] Pathology & Laboratory Medicine [address] [address] Radha De Jesus [address] [place] [phone] Encounter for other general examination Social History [...] Description 01/13/2024 13:15 EST Telemedicine [facility] Reproductive Medicine & Infertility Center [address] [address] Layla Reid MD 111 [facility], Level [address] [place] [phone] documented as of this encounter Procedures Procedure [...] types, PCR Negative Negative 06/05/2019 14:38 EDT [facility] Comment:No E6 or E7 mRNA is detected from HPV types 16,18,31,33,35,39,45,51,52,56,58,59,66, and 68 by metal pickling equipment operator mediated amplification. Papanicolaou smear specimen (specimen) CERVIX UTERI STRUCTURE / Unknown 05/26/2019 9:30 EDT 06/02/2019 10:00 EDT Radha De Jesus REPORTS ANALYST MICROBIOLOGY - GENER AL ORDERABLES [facility] [address] [place] [address] * PAP TEST (05/26/2019 9:30 EDT) Specimens A. Cervix and/or Endocervix, ThinPrep Imaging System with Manual Evaluation 06/05/2019 14:38 EDT [facility] Specimen Adequacy Satisfactory for Evaluation - transformation zone component present Scant due to excessive blood 06/05/2019 14:38 EDT [facility] General Categorization Negative for intraepithelial lesion or malignancy 06/05/2019 14:38 EDT [facility] Attestation . 06/05/2019 14:38 EDT [facility] at 1438 Clinical History NONE 03/30/20 20 14:38 EDT [facility] HPV The result for the Human Papillomavirus (HPV) Detection-High Risk Types is Negative. No E6 or E7 mRNA is detected from HPV types 16,18,31,33,35,39 ,45,51,52,56,58,5 9,66, and 68 by metal pickling equipment operator mediated amplification.Leyda ting was performed on specimen [id number] and was resulted on 06/05/2019 1435 EDT by DEIRDRE, LAB INSTRUMENT RESULTS IN 06/05/2019 14:38 EDT [facility] Scanned Images 06/05/2019 14:38 EDT [facility] Papanicolaou smear specimen (specimen) CERVIX UTERI STRUCTURE / Unknown 05/26/2019 9:30 EDT 05/26/2019 15:45 EDT Radha De Jesus REPORTS ANALYST PATHOLOGY ORDERABLES [facility] [address] [place] [address] documented in this encounter Visit Diagnoses Diagnosis Encounter for other general examination documented in this encounter Care Teams In Home Sales Representative Relationship Specialty Start Date End Date Md Alfaro MD PCP - General 08/09/09 05/04/22 Lisa Mcgregor FNP [address] [place] [phone] PCP - General 05/05/22 Md Alfaro MD 05/05/22 documented as of this encounter
--- OUTSIDE RECORDS SUMMARY | 2024-01-13 07:59 | XMS_ITS | Encounter Summary ---
Author Organization [facility] Address [address] [place] [address] Care Team Providers Care Denture Waxer Name Role Phone Lisa Mcgregor [facility] Primary Care Provider [phone] Md MICHAELA Alfaro Unavailable Unavailable Encounter Details Date Type Department Care Team (Late st Contact Info) Description 12/01/2023 Documentation Visit [facility] Reproductive Medicine & Infertility Center - [address] [address] Lucrecia Land MD 111 [facility], Level [address] [place] [phone] Social History Tobacco Use Types Packs/Day Years [...] of this encounter Progress Notes * Lucrecia Ladn MD - 12/01/2023 0958 EDT IVF Plan Note Cycle type: Antag, ICSI (TESE sample) Med day 6 Tiny Juarez's labs and IVF plan reviewed [...] MD Reproductive Endocrinology and Infertility Fellow (PGY7) [facility] documented in this encounter Plan of Treatment Upcoming Encounters Date Type Department Care Team (Late st Contact Info) Description 01/13/2024 13:15 EST Telemedicine [facility] Reproductive Medicine & Infertility Center - [address] [address] Layla Reid MD 111 [facility], [address] [place] [phone] documented as of this encounter Visit Diagnoses Not on filedocumented in this encounter Care Teams Denture Waxer Relationship Specialty Start Date End Date Lisa Mcgregor FNP [address] [place] [phone] PCP - General 05/05/22 Md Alfaro MD 05/05/22 documented as of this encounter
--- OUTSIDE RECORDS SUMMARY | 2024-01-13 07:59 | XMS_ITS | Encounter Summary ---
Author Organization [facility] Address [address] [place] [address] Care Team Providers Care Brake Shoe Rebuilder Name Role Phone Lisa Mcgregor [facility] Primary Care Provider [phone] Md MICHAELA Alfaro Unavailable Unavailable Encounter Details Date Type Department Care Team (Late st Contact Info) Description 11/29/2023 Documentation Visit [facility] Reproductive Medicine & Infertility Center - [address] [address] Lucrecia Land MD 111 [facility], [address] [place] [phone] Social History Tobacco Use Types Packs/Day Years [...] MD Reproductive Endocrinology and Infertility Fellow (PGY7) [facility] documented in this encounter Plan of Treatment Upcoming Encounters Date Type Department Care Team (Late st Contact Info) Description 01/13/2024 13:15 EST Telemedicine [facility] Reproductive Medicine & Infertility Center - [address] [phone] Layla Reid MD 111 [facility], [address] [place] [phone] documented as of this encounter Visit Diagnoses Not on filedocumented in this encounter Care Teams Brake Shoe Rebuilder Relationship Specialty Start Date End Date Lisa Mcgregor FNP 26 [facility] [address] [place] [phone] PCP - General 05/05/22 Md Alfaro MD 05/05/22 documented as of this encounter
--- OUTSIDE RECORDS SUMMARY | 2024-01-13 07:59 | XMS_ITS | Encounter Summary ---
Author Organization [facility] Address [address] [place] [address] Care Team Providers Care Chemist Instrumentation Name Role Phone BalbirLisa [facility] Primary Care Provider [phone] Md MICHAELA Alfaro Unavailable Unavailable Encounter Details Date Type Department Care Team (Late st Contact Info) Description 09/06/2023 9:15 EDT Phlebotomy Only [facility] ED Center 2 Phlebotomy [address] [place] [address] Sand Control Worker, [facility] Phlebotomy Fertility testing; Female infertility; [...] Contact Info) Description 01/13/2024 13:15 EST Telemedicine [facility] Reproductive Medicine & Infertility Center - [place] [address] [place] [address] Layla Reid MD 111 [facility] [address] [place] [phone] documented as of this encounter Procedures Procedure [...] C Antibody Negative Negative 09/06/2023 12:56 EDT [facility] Blood VENOUS BLOOD / Unknown Venipuncture / Unknown 09/06/2023 10:26 EDT 09/06/2023 10:50 EDT Elizabeth B Juan Jose DO CHEMISTRY & BLOOD G ORDERABLES [facility] [address] [place] [address] * SYPHILIS SEROLOGY (09/06/2023 10:26 EDT) Pathologist [facility] Syphilis Serology Negative Negative 09/06/2023 15:17 EDT [facility] Blood VENOUS BLOOD / Unknown Venipuncture / Unknown 09/06/2023 10:26 EDT 09/06/2023 10:50 EDT Elizabeth Newellbit DO IMMUNOLOGY AND SERO LOGY ORDERABLES Performing Organization Address City/[facility]/ZIP Co de Phone Number [facility] [address] [place] [address] * HEPATITIS B SURFACE ANTIGEN (09/06/2023 10:26 EDT) Pathologist [facility] Hep B Surface Ag Negative Negative 09/06/2023 12:26 EDT [facility] Blood VENOUS BLOOD / Unknown Venipuncture / Unknown 09/06/2023 10:26 EDT 09/06/2023 10:50 EDT Elizabeth B Juan Jose DO CHEMISTRY & BLOOD G ORDERABLES Performing Organization Address City/[facility]/ZIP Co de Phone Number [facility] [address] [place] [address] * HEPATITIS B CORE ANTIBODY (TOTAL) (09/06/2023 10:26 EDT) Pathologist [facility] Hepatitis B Core Ab, Total Negative Negative 09/06/2023 13:36 EDT [facility] Blood VENOUS BLOOD / Unknown Venipuncture / Unknown 09/06/2023 10:26 EDT 09/06/2023 10:50 EDT Elizabeth Ingram DO CHEMISTRY & BLOOD G ORDERABLES Performing Organization Address [facility] Co de Phone Number [facility] [address] [place] [address] * HIV 1/2 ANTIGEN AND ANTIBODY, 4TH GENERATION (09/06/2023 10:26 EDT) [facility] HIV 1 and 2 Antibody/p24 Antigen, 4th Generation Negative Negative 09/06/2023 13:35 EDT [facility] Comment:If acute HIV-1 infec tion is suspected in a high risk patient, submit plasma specimen for HIV-1 RNA quantitation test. Blood VENOUS BLOOD / Unknown Venipuncture / Unknown 09/06/2023 10:26 EDT 09/06/2023 10:50 EDT Narrative [facility] - 09/06/2023 13:35 EDT Fourth Generation assay performed on the [employer] XPT. Elizabeth Ingram DO IMMUNOLOGY AND SERO LOGY ORDERABLES Performing Organization Address City/[facility] Co de Phone Number [facility] [address] [place] [phone] * TSH (09/06/2023 10:26 EDT) [facility] TSH 2.47 0.47 - 4.68 mIU/L 09/06/2023 11:56 EDT [facility] Blood VENOUS BLOOD / Unknown Venipuncture / Unknown 09/06/2023 10:26 EDT 09/06/2023 10:50 EDT Narrative [facility] - 09/06/2023 11:56 EDT The results of this assay can be falsely lowered due to the consumption of Biotin. Elizabeth Ingram DO CHEMISTRY & BLOOD G ORDERABLES Performing Organization Address [facility] Co de Phone Number [facility] [address] [place] [address] * ANTIMULLERIAN HORMONE, S (09/06/2023 10:26 EDT) Pathologist [facility] Antimullerian Hormone, S 5.8 0.58 - 8.1 ng/mL 09/08/2023 10:01 EDT [facility] Comment: ADDITIONAL INFORMATION The testing method is an electrochemiluminescence assay manufactured by [employer] and performed on the Papo system. Values obtained with different assay methods or kits may be different and cannot be used interchangeably. This test has been modified from the manufacturers instructions. Its performance characteristics were determined by [facility] in a manner consistent with CLIA requirements. This test has not been cleared or approved by the U.S. Food and Drug Administration. Test Performed by: [facility] - [address] [address] Aluminum Sheet Cutter: Anthony Mccoy Ph.D.; CLIA# [id number] Blood VENOUS BLOOD / Unknown Venipuncture / Unknown 09/06/2023 10:26 EDT 09/06/2023 10:50 EDT Elizabeth Ingram DO HEMATOLOGY & PF4 OR DERABLES Performing Organization Address City/[facility]/ZIP Co de Phone Number [facility] [address] [place] [address] * VITAMIN D (25,OH) (09/06/2023 10:26 EDT) Pathologist [facility] 25OH Vitamin D Tot 55 30 - 100 ng/mL 09/06/2023 15:11 EDT [facility] Comment: Vitamin D 25,OH Interpretive Ranges: Deficiency: ??<10.0 ng/mL Insufficiency: ??10.0 - 30.0 ng/mL Sufficiency: ??30.0 - 100.0 ng/mL Toxicity: ??>100.0 ng/mL Blood VENOUS BLOOD / Unknown Venipuncture / Unknown 09/06/2023 10:26 EDT 09/06/2023 10:50 EDT Elizabeth Ingram DO CHEMISTRY & BLOOD G ORDERABLES Performing Organization Address [facility] Co de Phone Number [facility] [address] [place] [address] * CHLAMYDIA/N. GONORRHOEAE AMPLIFIED RNA (09/06/2023 9:47 EDT) Neisseria gonorrhoeae Result Negative Negative 09/07/2023 12:26 EDT [facility] Chlamydia trachomatis Result Negative Negative 09/07/2023 12:26 EDT [facility] Urine URINE / Unknown Urine Collect / Unknown 09/06/2023 9:47 EDT 09/06/2023 10:32 EDT Narrative [facility] - 09/07/2023 12:26 EDT A first catch urine specimen is acceptable for detection of Gonorrhea and Chlamydia, but might detect up to 10% fewer infections when compared with vaginal swab samples. Elizabeth Ingram DO MICROBIOLOGY - GENE RAL ORDERABLES Performing Organization Address [facility] Co de Phone Number [facility] [address] [place] [address] documented in this encounter Visit Diagnoses Diagnosis Fertility testing Female infertility Female infertility of unspecified origin Encounter for preconception consultation Other procreative management counseling and advice Routine screening for STI (sexually transmitted infection) Screening examination for venereal disease documented in this encounter Care Teams Chemist Instrumentation Relationship Specialty Start Date End Date Lisa Mcgregor FNP [address] [place] [address] [place] [phone] PCP - General 05/05/22 Md Alfaro MD 05/05/22 documented as of this encounter
[2024-01-13 08:13] LABS: HCG Quant, Pregnancy 123 mIU/mL (1-3)
== END 2024-01-13 07:57 | disposition home or self-care (01) ==
LOC: LBO 07:56
PROVIDERS: PCP Nurse Practitioner Family; Visit Provider Obstetrics & Gynecology Reproductive Endocrinology
DX: O02.81 Inappropriate change in quantitative human chorionic gonadotropin (hCG) in early pregnancy (principal)
CPT/HCPCS: 36415; 84702

== ENCOUNTER 2024-01-18 04:33 | Outpatient (CLI) | payer BC, SELFPAY ==
[2024-01-18 07:49] LABS: HCG Quant, Pregnancy 74 mIU/mL (1-3)
== END 2024-01-18 04:34 | disposition home or self-care (01) ==
PROVIDERS: PCP Nurse Practitioner Family; Visit Provider Obstetrics & Gynecology Obstetrics
DX: O02.81 Inappropriate change in quantitative human chorionic gonadotropin (hCG) in early pregnancy (principal)
CPT/HCPCS: 36415; 84702

== ENCOUNTER 2024-01-20 15:07 | Outpatient (REF) | payer BC, SELFPAY ==
[2024-01-20 11:30] LABS: HCG Quant, Pregnancy 55 mIU/mL (1-3)
--- OUTSIDE RECORDS SUMMARY | 2024-01-20 15:11 | XMS_ITS | Encounter Summary ---
Author Organization [facility] Address [address] [place] [address] Care Team Providers Care Walking Dragline Operator Name Role Phone Lisa Mcgregor [facility] Primary Care Provider [phone] Md MICHAELA Alfaro Unavailable Unavailable Reason for Referral * HORSE IDENTIFIER (Routine/Next Available) - Authorization Not Required Specialty Diagnoses / Procedures Referred By Contac t Referred To Contact Diagnoses of unknown anatomic location Procedures OB FIRST TRIMESTER (LESS THAN 14 WEEKS) TRANSVAGINAL Layla Reid MD [address] [address] Phone: tel: fax: [facility] [employer] SALES ASSOCIATE/KIANNA Referral ID Status Reason Start Date Expiration Date Visits Requested Visits Authorized [id number] Authorization Not Required 01/13/2024 1 1 Reason for Visit * HORSE IDENTIFIER (Routine/Next Available) - Authorization Not Required Specialty Diagnoses / Procedures Referred By Contac t Referred To Contact Diagnoses of unknown anatomic location Procedures US OB FIRST TRIMESTER (LESS THAN 14 WEEKS) TRANSVAGINAL Layla Reid MD [address] [address] Phone: tel: fax: [facility] [employer] SALES ASSOCIATE/KIANNA Referral ID Status Reason Start Date Expiration Date Visits Requested Visits Authorized [id number] Authorization Not Required 01/13/2024 1 1 Encounter Details Date Type Department Care Team (Latest Contact Info) Description 01/14/2024 8:31 EST - 01/14/2024 23:59 EST Hospital Encounter [facility] OBGYN Services - [address] [phone] of unknown anatomic location Discharge Disposition: Home or Self Care Social History Tobacco Use Types Packs/Day Years Used Date Smoking Tobacco: Never Smokeless Tobacco: Never Alcohol Use Standard Drinks/Week Comments Not Currently 0 (1 standard drink = 0.6 oz pur e alcohol) Comments Yes Sex and Gender Information Value Date Recorded Sex Assigned at Female 09/07/2023 13:39 EDT Legal Sex Female 18:49 EST Gender Identity Female 09/07/2023 13:39 EDT Sexual Orientation Straight 09/07/2023 13 :39 EDT documented as of this encounter Medications at Time of Discharge acyclovir (ZOVIRAX) 200 mg capsule Take 2 [...] documented in this encounter Plan of Treatment Not on file documented as of this encounter Procedures Procedure Name Priority Date/Time Associated Diagnosis Comments US OB FIRST TRIMESTER (LESS THAN 14 WEEKS) TRANSVAGINAL Routine 01/14/2024 9:25 EST of unknown anatomic location documented in this encounter Results * US OB FIRST TRIMESTER (LESS THAN 14 WEEKS) TRANSVAGINAL (01/14/2024 9:25 EST) Anatomical Region Laterality Modality Pelvis Ultrasound 01/14/2024 9:07 EST Narrative 01/14/2024 9:33 EST Indication ======== abnormal hCG trend from IVF , was decreasing so stopped meds then had bleeding; hCG now rising History ====== Previous Outcomes ?2 Para ?? 1 Pregnancies delivered at term (T) ??1 Living children (L) ?1 ========= Number of fetuses: 1 Dating ====== Conception: ?Invitro fertilization Embryo transfer on: ?12/16/2023 IVF / ET ?? 3 d GA by IVF / ET 6 w + 4 d UDAY by IVF / ET: ?? 09/04/2024 Assessment Gestational sac: Not visualized Maternal Structures Uterus / Cervix Uterus: ?Appears normal Uterus position: ?? Anteverted Endometrium: ?? Thin endometrium Endometrial thickness, total ?? 3.2 mm Cervix: ?Appears normal Ovaries / Tubes / Adnexa Rt ovary: ??Visualized, normal appearance Rt ovary D1 ?21.8 mm Rt ovary D2 ?17.0 mm Rt ovary D3 ?16.7 mm Rt ovary Vol ?? 3.2 cm cubed Lt ovary: ??Visualized, normal appearance Lt ovary D1 ?28.8 mm Lt ovary D2 ?15.2 mm Lt ovary D3 ?19.8 mm Lt ovary Vol ?? 4.5 cm cubed Cul de Sac / Bladder / Kidneys / Other Cul de Sac: ?Appears normal Free fluid: ?No free fluid visualized Method ====== Transvaginal ultrasound examination, Transducer # 8. View: Good view Impression ========= OB Transvaginal - 31283 Normal anteverted uterus with uniformly thin endometrium. No area of increased vascularity. Normal post-IVF ovaries; no adnexal masses seen that would be concerning for ectopic . Follow-up ======== Check hCG today; plan per KIANNA team Comment ======== O36.80X0 of unknown anatomic location, O09.81 supervision of resulting from assisted reproductive technology Ultrasound findings discussed w/patient. DATE OF SERVICE: 01/14/2024 Procedure Note Layla Reid MD - 01/14/2024 Indication ======== abnormal hCG trend from IVF , was decreasing so stopped meds thenhad bleeding; hCG now rising History ====== Previous Outcomes 2 Para 1 Pregnancies delivered at term (T) 1 Living children (L) 1 ========= Number of fetuses: 1 Dating ====== Conception: Invitro fertilization Embryo transfer on: 12/16/2023 IVF / ET 3 d GA by IVF / ET 6 w + 4 d UDAY by IVF / ET: 09/04/2024 Assessment Gestational sac: Not visualized Maternal Structures Uterus / Cervix Uterus: Appears normal Uterus position: Anteverted Endometrium: Thin endometrium Endometrial thickness, total 3.2 mm Cervix: Appears normal Ovaries / Tubes / Adnexa Rt ovary: Visualized, normal appearance Rt ovary D1 21.8 mm Rt ovary D2 17.0 mm Rt ovary D3 16.7 mm Rt ovary Vol 3.2 cm cubed Lt ovary: Visualized, normal appearance Lt ovary D1 28.8 mm Lt ovary D2 15.2 mm Lt ovary D3 19.8 mm Lt ovary Vol 4.5 cm cubed Cul de Sac / Bladder / Kidneys / Other Cul de Sac: Appears normal Free fluid: No free fluid visualized Method ====== Transvaginal ultrasound examination, Transducer # 8. View: Good view Impression ========= OB Transvaginal - 17280 Normal anteverted uterus with uniformly thin endometrium. No area ofincreased vascularity. Normal post-IVF ovaries; no adnexal masses seen that would be concerningfor ectopic . Follow-up ======== Check hCG today; plan per KIANNA team Comment ======== O36.80X0 of unknown anatomic location, O09.81 supervision ofpregnancy resulting from assisted reproductive technology Ultrasound findings discussed w/patient. DATE OF SERVICE: 01/14/2024 us Layla Reid MD IM US OB ORDERABLES Jovanna l Result documented in this encounter Visit Diagnoses Diagnosis of unknown anatomic location state, incidental documented in this encounter Care Teams Walking Dragline Operator Relationship Specialty Start Date End Date Lisa Mcgregor FNP [address] [place] [address] [place] [phone] PCP - General 05/05/22 Md Alfaro MD 05/05/22 documented as of this encounter
--- OUTSIDE RECORDS SUMMARY | 2024-01-20 15:11 | XMS_ITS | Encounter Summary ---
Author Organization [facility] Address [address] [place] [address] Care Team Providers Care Cooperative Extension Agent Name Role Phone Lisa Mcgregor Primary Care Provider [phone] Md MICHAELA Alfaro Unavailable Unavailable Encounter Details Date Type Department Care Team (Late st Contact Info) Description 01/20/2024 Orders Only [facility] Reproductive Medicine & Infertility [facility] - [facility] [address] [place] [address] Aleisha Che RN Female infertility (Primary Dx) Social History Tobacco [...] as of this encounter Plan of Treatment Scheduled Orders Name Type Priority Associated Diagnoses Orde r Schedule QUANT BETA HCG, Lab STAT Female infertility Expected: 01/20/2024 (Approximate), Expires: 01/19/2025 documented as of this encounter Visit Diagnoses Diagnosis Female infertility- Primary Female infertility of unspecified origin documented in this encounter Care Teams Cooperative Extension Agent Relationship Specialty Start Date End Date Lisa Mcgregor FNP [address] [phone] PCP - General 05/05/22 Md Alfaro MD 05/05/22 documented as of this encounter
--- OUTSIDE RECORDS SUMMARY | 2024-01-20 15:11 | XMS_ITS | Encounter Summary ---
Author Organization [facility] Address [address] [place] [address] Care Team Providers Care Crystal Flat Grinder Name Role Phone BalbirLisa [facility] Primary Care Provider [phone] Md MICHAELA Alfaro Unavailable Unavailable Encounter Details Date Type Department Care Team (Late st Contact Info) Description 01/18/2024 Documentation Visit [facility] Reproductive Medicine & Infertility Center - [address] [address] Lucrecia Land MD 111 [facility], Level [address] [place] [phone] Social History Tobacco Use Types Packs/Day Years [...] Progress Notes * Lucrecia Land MD - 01/18/2024 1256 EST hCG trend reviewed today at team meeting, plan repeat in 48 hrs at same lab as today. If no decline, plan repeat US. Lucrecia Land MD Reproductive Endocrinology and Infertility Fellow (PGY7) [facility] documented in this encounter Plan of Treatment Not on file documented as of this encounter Visit Diagnoses Not on filedocumented in this encounter Care Teams Crystal Flat Grinder Relationship Specialty Start Date End Date Lisa Mcgregor FNP [address] [phone] PCP - General 05/05/22 Md Alfaro MD 05/05/22 documented as of this encounter
--- OUTSIDE RECORDS SUMMARY | 2024-01-20 15:11 | XMS_ITS | Encounter Summary ---
Author Organization [facility] Address [address] [place] [address] Care Team Providers Care Defensive Line Coach Name Role Phone BalbirLisa [facility] Primary Care Provider [phone] Md MICHAELA Alfaro Unavailable Unavailable Reason for Visit * Reason Comments Follow-up Cycle review Encounter Details Date Type Department Care Team (Late st Contact Info) Description 01/13/2024 13:15 EST Telemedicine [facility] Reproductive Medicine & Infertility Center - [facility] [address] [place], [place] [address] Layla Reid MD 111 [facility], Level [address] [place] [phone] Encounter for assisted reproductive fertility [...] Progress Notes * Lucrecia Land MD - 01/13/2024 1315 EST Images from the original note were not included. [facility] Reproductive Medicine Telehealth visit Chief Complaint Patient presents with Follow-up Cycle review Tiny, 33 y.o. is contacted for an audio-visual Telehealth visit. Today's visit was provided through telemedicine conferencing: Using Zoom platform. Consent: The concept of telemedicine?? has [...] care. The location of the patient : Home (where patient lives) The location of the provider: Office The following staff and their role did participate in today's encounter visit: MD KIANNA Harris fellow, MD KIANNA Ayoub attending [facility] Reproductive Medicine - Cycle Review Date: 01/13/24 Patient: Tiny Juarez is a 33 y.o. with who presents to review recent IVF cycle, currently with abnormal hCG trend. Cycle Number: 1 Partner: Philippe Juarez She reports a recent bleed which stopped last night. No significant abdominal or pelvic pain. [facility] [place] Testing: FSH: 4.6 (05/15/2022) AMH: 5.8 (09/06/23) Estradiol: 28 (05/15/22) AFC: 34 (05/2022) GREER Results: n/a,TESE samples, 4 vials cryopreserved, with 2-3 twitch-2+ prog sperm per HPF. Stimulation: Medication: GN 04/08 Peak E2: 4364 Lupron triggered CD: 16 ICSI: Yes: TESE sample Retrieval Information # Oocytes: 15 % Mature: 11 (73%) % Fertilized: 9 (81%) Transfer Information # Transferred: 2 Quality: 8B+, 7B+ # Cryopreserved: 3 Quality: day 6 4AB, 3AB, 2BB # Transfer notes: (1) Normal-appearing anteverted uterus with thickened trilaminar endometrial stripe, measuring 10mm. (2) Transfer completed using Solano catheter without stylet guide with minimal curve on catheter. No difficulty. Results: [facility] Date: 12/27/23 Result: 18 > 38 > 89 > 115 > 80 > 54 > 123 today Preconception testing: Component Latest Ref Rng 05/15/2022 09/06/2023 Rubells IgG Ab See Note Positive Measles IgG Ab See Note Positive 25OH Vitamin D Tot 30 - 100 ng/mL 55 TSH 0.47 - 4.68 mIU/L 2.47 Pap 05/26/19 NILM, hrHPV neg Counseling: Today we had a detailed discussion about recent cycle outcome, which was understandably disappointing. We reviewed her hCG today which unfortunately has not continued declining; recommended repeat US tomorrow AM at 9am to reevaluate for possible ectopic vs incomplete micsarriage. We discussed possibility of uterine aspiration depending on findings vs misoprostol if US shows retained products of conception. We reviewed the standard medications used, typical course, and events surrounding a frozen embryo transfer cycle. We revisited PGTA testing. We discussed that preimplantation genetic testing- aneuploidy (PGT-A) is a test that screens embryos for aneuploidy in all chromosomes, including the 22 pairs of autosomes and the sex chromosomes X and Y. Reviewed that a ???normal?? or negative preimplantation genetic test result is not a guarantee of a without genetic abnormalities. Many limitations exist to preimplantation genetic testing and include challenges in detecting microdeletions and microduplications, de wesley variants, and imprinting disorders, and interpretation of embryo mosaicism. We discussedthat it is generally most useful as an embryo selection tool in women 38 years or older, who can have aneuploidy in a significant or majority percentage of embryos. They will defer for now but might revisit if not . Preconception testing: up to date Pap up to date until 2024. Normal recent TSH, Vit . D Immune to measles and rubella We reviewed our current rates (50-60% for a good quality embryo). Anticipate 40-50% chance of live for Tiny based on 4AB embryo. We reviewed the potential complications of an FET, to include but not be limited to, cycle cancellation, side effects or reaction to the medications, multiple gestations, ectopic , and failure to conceive. We reviewed the consent and plan to transfer 1 day 6 embryo (4AB). They will need to sign consent in person prior to the day embryos are thawed. Patient seen with Dr. Reid. Recommendations: To Do: - PROCESSING OPERATOR US tomorrow at 9am to evaluate beta trend - repeat cavity evaluation (will be outdated in May) - sign consent with both partners Jessa Land MD Reproductive Endocrinology & Infertility Fellow [facility] 01/13/2024 / 13:50 Attestation statement: I saw and counseled the patient with the fellow/resident at the time of the visit. I agree with the findings and the plan of care documented in the above note, with minor additions as needed. I spent a total of 35 minutes on the date of this encounter meeting with the patient and reviewing documentation/coordinating care as described in the above note. Layla Reid MD Reproductive Endocrinology and Infertility documented in this encounter Plan of Treatment Not on file documented as of this encounter Visit Diagnoses Diagnosis Encounter for assisted reproductive fertility cycle- Primary Encounter for assisted reproductive fertility procedure cycle documented in this encounter Care Teams Defensive Line Coach Relationship Specialty Start Date End Date Lisa Mcgregor FNP [address] [place] [phone] PCP - General 05/05/22 Md Alfaro MD 05/05/22 documented as of this encounter
--- OUTSIDE RECORDS SUMMARY | 2024-01-20 15:11 | XMS_ITS | Encounter Summary ---
Author Organization [facility] Address [address] [place] [address] Care Team Providers Care Air And Water Tester Name Role Phone BalbirLisa [facility] Primary Care Provider [phone] Md MICHAELA Alfaro Unavailable Unavailable Encounter Details Date Type Department Care Team (Late st Contact Info) Description 01/02/2024 8:30 EDT Phlebotomy Only [facility] [address] [place] [address] Senior Project Controls Specialist, Acc Phlebotomy resulting from assisted reproductive technology in first trimester Social History Tobacco Use Types Packs/Day Years Used Date Smoking Tobacco: Never Smokeless Tobacco: Never Alcohol Use Standard Drinks/Week Comments Not Currently 0 (1 standard drink = 0.6 oz pur e alcohol) Comments Unknown Sex and Gender Information Value Date Recorded Sex Assigned at Female 09/07/2023 13:39 EDT Legal Sex Female 18:49 EST Gender Identity Female 09/07/2023 13:39 EDT Sexual Orientation Straight 09/07/2023 13 :39 EDT documented as of this encounter Plan of Treatment Not on file documented as of this encounter Procedures Procedure Name Priority Date/Time Associated Diagnosis Comments QUANT BETA HCG, Routine 01/02/2024 8:26 EDT resulting from assisted reproductive technology in first trimester documented in this encounter Results * (ABNORMAL) QUANT BETA HCG, (01/02/2024 8:26 EDT) Beta HCG Quant, 115(H) <5 mIU/mL 01/02/2024 9:37 EDT [facility] Comment: NOTE: : Negative: Less than 5mIU/mL Indeterminant: Between 5 and 25 mIU/mL, recommend repeat testing in 48 hours Positive: Greater than 25 mIU/mL The results of this assay can be falsely lowered due to the consumption of Biotin. Blood VENOUS BLOOD / Unknown Venipuncture / Unknown 01/02/2024 8:26 EDT 01/02/2024 8:46 EDT us Layla Reid MD CHEMISTRY & BLOOD GAS ORD ERABLES Final Result [facility] [address] [place] [address] documented in this encounter Visit Diagnoses Diagnosis resulting from assisted reproductive technology in first trimester documented in this encounter Care Teams Air And Water Tester Relationship Specialty Start Date End Date Lisa Mcgregor FNP [address] [facility] [address] [place] [address] [phone] PCP - General 05/05/22 Md Alfaro MD 05/05/22 documented as of this encounter
--- OUTSIDE RECORDS SUMMARY | 2024-01-20 15:11 | XMS_ITS | Referral Summary ---
Author Organization [facility] Address [address] [place] [address] Care Team Providers Care Aligner Typewriter Name Role Phone Lisa Mcgregor CHEMICAL ENGINEERING TECHNICIAN Primary Care Provider [phone] Md MICHAELA Alfaro Unavailable Unavailable Encounters Date Type Department Care Team Description 01/20/2024 Orders Only [facility] Reproductive Medicine Infertility [address] [phone] Aleisha Che RN Female infertility (Primary Dx) 01/18/2024 Documentation Visit [facility] Reproductive Medicine & Infertility [facility] [address], [place] [address] Lucrecia Land MD 01/16/2024 Telephone [facility] Reproductive Medicine & Infertility [facility] [address], [place] [phone] Lucrecia Land MD Results 01/16/2024 9:00 EST Phlebotomy Only [facility] ED Center 2 Phlebotomy [address], [place] [id number] Shoe Turner, [facility] Phlebotomy Encounter for in vitro fertilization 01/14/2024 9:30 EST Procedure visit [facility] Reproductive Medicine & Infertility [facility] [address], [place] [address] Layla Reid MD of unknown anatomic location (Primary Dx) 01/14/2024 Orders Only [facility] Reproductive Medicine & Infertility [address] [address] Fabiana Hallman MD of unknown anatomic location (Primary Dx) 01/14/2024 8:31 EST - 01/14/2024 23:59 EST Hospital Encounter [facility] OBGYN Services [address] [address] of unknown anatomic location Discharge Disposition: Home or Self Care 01/13/2024 13:15 EST Telemedicine [facility] Reproductive Medicine & Infertility [address] [address] Layla Reid MD Encounter for assisted reproductive fertility cycle (Primary Dx) 01/04/2024 Travel 01/04/2024 8:33 EDT - 01/04/2024 12:50 EDT Emergency [facility] Emergency Department - [address] [address] Kirby Velazquez MD Threatened (Primary Dx) Discharge Disposition: Home or Self Care 01/02/2024 8:30 EDT Phlebotomy Only [facility] ED [facility] 2 Phlebotomy [address] [place] [address] Shoe Turner, Acc Phlebotomy resulting from assisted reproductive technology in first trimester 12/31/2023 9:00 EDT Phlebotomy Only [facility] ED [facility] 2 Phlebotomy [address] [place] [address] Shoe Turner, Acc Phlebotomy Encounter for in vitro fertilization 12/29/2023 Telephone [facility] Reproductive Medicine & Infertility [address] [address] Lucrecia Land MD Results 12/29/2023 Orders Only [facility] Reproductive Medicine & Infertility [address] [address] Aleisha Che, [place]AP[place]O Encounter for in vitro fertilization (Primary Dx) 12/29/2023 9:00 EDT Phlebotomy Only [facility] ED [facility] 2 Phlebotomy [address] [place] [address] Shoe Turner, Acc Phlebotomy Encounter for in vitro fertilization 12/27/2023 Orders Only [facility] Medicine & Infertility [facility] [address] [place] [address] Aleisha Che, RN Encounter for in vitro fertilization (Primary Dx) 12/27/2023 8:45 EDT Phlebotomy Only [facility] ED [facility] 2 Phlebotomy [address] [place] [address] Shoe Turner, Acc Phlebotomy Encounter for in vitro fertilization 12/24/2023 Orders Only [facility] Medicine Infertility [facility] [address] [place] [address] Aleisha Che, RN Encounter for in vitro fertilization (Primary Dx) 12/23/2023 Documentation Visit [facility] Medicine & Infertility [facility] [address] [place] [address] Lucrecia Land MD 12/23/2023 9:00 EDT Phlebotomy Only [facility] ED [facility] 2 Phlebotomy [address] [place] [address] Shoe Turner, Acc Phlebotomy Female infertility 12/20/2023 Documentation Visit [facility] Reproductive Medicine & Infertility [facility] [address] [place] [address] Lucrecia Land MD 12/20/2023 9:00 EDT Phlebotomy Only [facility] ED [facility] 2 Phlebotomy [address] [place] [address] Shoe Turner, Acc Phlebotomy Female infertility 12/16/2023 10:50 EDT - 12/16/2023 10:59 EDT Hospital Encounter [facility] Medicine & Infertility [facility] [address] [place] [address] Encounter for assisted reproductive fertility procedure cycle Discharge Disposition: Home or Self Care 12/16/2023 9:15 EDT Phlebotomy Only [facility] ED Center [address] [place] [address] Shoe Turner, Acc Phlebotomy Encounter for assisted reproductive fertility cycle; Encounter for assisted reproductive fertility procedure cycle [Z31.83] 12/16/2023 11:00 EDT - 12/16/2023 23:59 EDT Hospital Encounter [facility] Reproductive Medicine & Infertility [address] [phone] Layla Reid MD Encounter for assisted reproductive fertility procedure cycle (Primary Dx) Discharge Disposition: Home or Self Care 12/14/2023 Telephone [facility] Reproductive Medicine & Infertility [address] [phone] Lucrecia Land MD Results 12/14/2023 Orders Only [facility] Reproductive Medicine & Infertility [address] [phone] Lucrecia Land MD Female infertility (Primary Dx) 12/13/2023 7:59 EDT - 12/13/2023 23:59 EDT Hospital Encounter [facility] Reproductive Medicine & Infertility [address] [address] Discharge Disposition: Home or Self Care 12/13/2023 8:45 EDT Anesthesia Event [facility] Medicine & Infertility [address] [address] Amparo Rivera MD Pearce, Laurie Ann, CRNA 12/13/2023 7:49 EDT - 12/13/2023 7:58 EDT Hospital Encounter [facility] Reproductive Medicine & Infertility [address] [phone] Layla Reid MD Encounter for assisted reproductive fertility procedure cycle [Z31.83] (Primary Dx) Discharge Disposition: Home or Self Care 12/12/2023 Documentation Visit [facility] Reproductive Medicine & Infertility [address] [phone] Lucrecia Land MD 12/12/2023 7:15 EDT Phlebotomy Only [facility] ED Center 2 Phlebotomy [address] [place] [address] Shoe Turner, Acc Phlebotomy Encounter for assisted reproductive fertility cycle; Encounter for assisted reproductive fertility procedure cycle 12/11/2023 8:15 EDT Phlebotomy Only [facility] ED [facility] 2 Phlebotomy [address] [place] [address] Shoe Turner, Acc Phlebotomy Encounter for assisted reproductive fertility cycle 12/11/2023 9:10 EDT Procedure visit [facility] Reproductive Medicine & Infertility [address] [address] Aurora Hinton MD Encounter for assisted reproductive fertility procedure cycle (Primary Dx) 12/11/2023 8:38 EDT - 12/11/2023 23:59 EDT Hospital Encounter [address] [address] Encounter for assisted reproductive fertility cycle Discharge Disposition: Home or Self Care 12/10/2023 Orders Only [facility] Reproductive Medicine & Infertility [address] [address] Aleisha Che, RN 12/09/2023 Orders Only [facility] Reproductive Medicine & Infertility [address] [address] Aleisha Che, RN 12/09/2023 8:00 EDT Procedure visit [facility] Reproductive Medicine & Infertility [address] [address] Sheila Robb MD Encounter for assisted reproductive fertility cycle (Primary Dx) 12/09/2023 7:35 EDT - 12/09/2023 23:59 EDT Hospital Encounter [address] [address] Encounter for assisted reproductive fertility cycle Discharge Disposition: Home or Self Care 12/07/2023 Orders Only [facility] Reproductive Medicine & Infertility [address] [address] Aleisha Che, [place]APARRO 12/07/2023 8:00 EDT Procedure visit [facility] Reproductive Medicine & Infertility [address] [address] Aurora Hinton MD Encounter for assisted reproductive fertility cycle (Primary Dx) 12/07/2023 7:25 EDT - 12/07/2023 23:59 EDT Hospital Encounter [address] [address] Encounter for assisted reproductive fertility cycle Discharge Disposition: Home or Self Care 12/05/2023 7:45 EDT Phlebotomy Only [facility] ED Center 2 Phlebotomy [address] [place] [address] Shoe Turner, Acc Phlebotomy Encounter for assisted reproductive fertility procedure cycle; Encounter for assisted reproductive fertility cycle 12/05/2023 9:30 EDT Procedure visit [facility] Medicine & Infertility [address] [address] Cheryl Fuller MD Encounter for assisted reproductive fertility cycle (Primary Dx) 12/05/2023 8:34 EDT - 12/05/2023 23:59 EDT Hospital Encounter [address] [address] Encounter for assisted reproductive fertility cycle Discharge Disposition: Home or Self Care 12/03/2023 Documentation Visit [facility] Reproductive Medicine & Infertility [address] [address] Lucrecia Land MD 12/03/2023 8:45 EDT Phlebotomy Only [facility] ED [facility] 2 Phlebotomy [address] [place] [address] Shoe Turner, Acc Phlebotomy Encounter for assisted reproductive fertility procedure cycle 12/01/2023 Documentation Visit [facility] Reproductive Medicine & Infertility [address] [address] Lucrecia Land MD 12/01/2023 8:45 EDT Phlebotomy Only [facility] ED Center 2 Phlebotomy [address] [place] [address] Shoe Turner, Acc Phlebotomy Encounter for assisted reproductive fertility procedure cycle 11/29/2023 Telephone [facility] Medicine & Infertility [address] [address] Olena Tucker, [place]O Coordination Of Care 11/29/2023 Documentation Visit [facility] Medicine & Infertility [address] [address] Lucrecia Land MD 11/29/2023 8:45 EDT Phlebotomy Only [facility] ED [place] 2 Phlebotomy [address] [place] [address] Shoe Turner, Acc Phlebotomy Encounter for assisted reproductive fertility procedure cycle 11/26/2023 8:45 EDT Phlebotomy Only [facility] 2 Phlebotomy [address] [place] [address] Shoe Turner, Acc Phlebotomy Encounter for assisted reproductive fertility procedure cycle 11/26/2023 8:00 EDT Procedure visit [facility] Reproductive Medicine & Infertility [address] [address] Sheila Robb MD Encounter for assisted reproductive fertility procedure cycle (Primary Dx) 11/26/2023 7:25 EDT - 11/26/2023 23:59 EDT Hospital Encounter [facility] OBGYN Services [address] [phone] Encounter for assisted reproductive fertility cycle Discharge Disposition: Home or Self Care 11/02/2023 Orders Only [facility] Reproductive Medicine & Infertility [address] [phone] Aleisha Che, [place]AP[place]O from Last 3 Months Allergies Active Allergy Reactions Criticality Noted Date Comments Amoxicillin-Pot Clavulanate Rash 05/14/19 23 Medications acyclovir (ZOVIRAX) 200 mg capsule Take 2 Capsules by mouth 2 times daily. Active 25/iron fum/folic/dha (-1 ORAL) Take by mouth daily. Active chorionic gonadotropin, human (PREGNYL) 10,000 unit injection Injected 1 mL into the skin once when directed. 1 Each 11/02/19 Active Additional Information Patient not taking.Reported on 01/13/2024 cholecalciferol , Vitamin D3, 25 mcg (1,000 unit) tablet Take 2 Tablets by mouth daily. Active leuprolide (LUPRON) 1 mg/0.2 mL kit Inject 80 units into the skin 12 hours apart when direct. BILL TO IVF CLINIC PLAN, GLOBAL. 1 Each 12/07/19 Active Additional Information Patient not taking.Reported on 01/13/2024 menotropins (MENOPUR) 75 unit solution for subcutaneous injection Inject 150 Units into the skin daily. 5 Each 12/09/19 Active Additional Information Patient not taking.Reported on 01/13/2024 Follitropin Arnoldo (GONAL-F) 1,050 unit recon soln Inject 300 Units into the skin daily. 1 Each 12/10/19 Active Additional Information Patient not taking.Reported on 01/13/2024 ganirelix (ANTAGON) 250 mcg/0.5 mL syringe Inject 0.5 mL into the skin daily. 2 Each 12/10/19 Active Additional Information Patient not taking.Reported on 01/13/2024 estradioL (ESTRACE) 2 mg tablet Take 1 Tablet by mouth 3 times daily. 90 Tablet 12/29/19 Active Additional Information Patient not taking.Reported on 01/13/2024 progesterone in oil 50 mg/mL injection Inject 1 mL into the muscle daily. 3 Each 2 12/29/19 Active Additional Information Patient not taking.Reported on 01/13/2024 progesterone in oil 50 mg/mL injection Inject 1 mL into the muscle daily. 3 Each 1 11/02/19 24 2023 Discontinued(R eorder) estradioL (ESTRACE) 2 mg tablet Take 1 Tablet by mouth 3 times daily. 90 Tablet 12/13/19 24 2023 Discontinued(R eorder) oxyCODONE (ROXICODONE) 5 mg immediate release tablet Take 1 Tablet by mouth every 4 hours as needed for up to 5 doses for Pain. Daily Max: 30 mg 5 Tablet 12/14/19 24 2023 Discontinued Hospital, Clinic, or Other Facility Administered Medication Ordered Dose Route Frequency Start Date End Date Status progesterone in oil injection 100 mg 100 mg IM DAILY 12/13/2023 12/29/2023 Disconti nued Active Problems Problem Noted Date Diagnosed Date Encounter for assisted repro ductive fertility procedure cycle 12/13/2023 Female infertility associated with male factors 09/17/2023 Comments Yes Social History Tobacco Use Types Packs/Day Years [...] 28.62 11/26/2023 0838 EDT Plan of Treatment Not on file Procedures Procedure Name Priority Date/Time Associated Diagnosis Comments QUANT BETA HCG, STAT 01/16/2024 9:09 EST Encounter for in vitro fertilization QUANT BETA HCG, STAT 01/14/2024 9:32 EST of unknown anatomic location US OB FIRST TRIMESTER (LESS THAN 14 WEEKS) TRANSVAGINAL Routine 01/14/2024 9:25 EST of unknown anatomic location US OB FIRST TRIMESTER (LESS THAN 14 [...] Encounter for assisted reproductive fertility cycle US COMMISSARY PRODUCTION SUPERVISOR EXAM (KIANNA ONLY) Routine 12/11/2023 9:36 EDT Encounter for assisted reproductive fertility cycle ESTRADIOL, ADULTS Routine 12/11/2023 8:1 2 EDT Encounter for assisted reproductive fertility cycle PROGESTERONE Routine 12/11/2023 8:12 EDT Encounter for assisted reproductive fertility cycle US COMMISSARY PRODUCTION SUPERVISOR EXAM (KIANNA ONLY) Routine 12/09/2023 7:43 EDT Encounter for assisted reproductive fertility cycle ESTRADIOL, ADULTS Routine 12/07/2023 8:0 7 EDT Encounter for assisted reproductive fertility cycle PROGESTERONE Routine 12/07/2023 8:07 EDT Encounter for assisted reproductive fertility cycle US COMMISSARY PRODUCTION SUPERVISOR EXAM (KIANNA ONLY) Routine 12/07/2023 7:30 EDT Encounter for assisted reproductive fertility cycle US COMMISSARY PRODUCTION SUPERVISOR EXAM (KIANNA ONLY) Routine 12/05/2023 8:52 EDT [...] Recently Relevant to Health Maintenance Results * (ABNORMAL) QUANT BETA HCG, (01/16/2024 9:09 EST) Only the most recent of8 resultswithin the time period is included. Beta HCG Quant, 71(H) <5 mIU/mL 01/16/2024 9:50 EST [facility] Comment: NOTE: : Negative: Less than 5mIU/mL Indeterminant: Between 5 and 25 mIU/mL, recommend repeat testing in 48 hours Positive: Greater than 25 mIU/mL The results of this assay can be falsely lowered due to the consumption of Biotin. Blood VENOUS BLOOD / Unknown Venipuncture / Unknown 01/16/2024 9:09 EST 01/16/2024 9:15 EST us Layla Reid MD CHEMISTRY & BLOOD GAS ORD ERABLES Final Result [facility] [address] [place] [address] * US OB FIRST TRIMESTER (LESS THAN [...] Good view Impression ========= OB Transvaginal - 44442 Normal anteverted uterus with uniformly thin endometrium. [...] Good view Impression ========= OB Transvaginal - 42031 Normal anteverted uterus with uniformly thin endometrium. No area ofincreased vascularity. Normal post-IVF ovaries; no adnexal masses seen that would be concerningfor ectopic . Follow-up ======== Check hCG today; plan per KIANNA team Comment ======== O36.80X0 of unknown anatomic location, O09.81 supervision ofpregnancy resulting from assisted reproductive technology Ultrasound findings discussed w/patient. DATE OF SERVICE: 01/14/2024 us Layla Reid MD IMG US OB ORDERABLES Jovanna robles Result * US OB FIRST TRIMESTER (LESS THAN [...] 3 days Prior ultrasound dating: Not available. [place]-rump length: No pole is identified. IMPRESSION: of unknown location. Differential considerations include non- visualized early intrauterine , non-visualized ectopic , and completed early loss. Follow-up with serial HCG, obstetric ultrasound, and FLIGHT ATTENDANT RAMP consultation is suggested. Reference: Mandi Falcon, et al. A lexicon for first-trimester US: Society of Radiologists in Ultrasound Consensus Conference recommendations. Radiology 312.2 (2023): [id number]. [id number] Narrative 01/04/2024 10:34 EDT US OB FIRST TRIMESTER (LESS THAN 14 WEEKS) TA AND TV AND LTD DUPLEX ??01/04/2024 9:45 AM SIGNS AND SYMPTOMS/COMMENTS: ??spotting, abnormal HCG COMPARISON: Pelvic ultrasound on 12/16/2023 DUPLEX: Indication for Duplex: Concern for ovarian torsion and/or mass Technique: Color and spectral Doppler ultrasound of the pelvis was performed. Resulting Agency Comment [id number] Procedure Note Romeo Salinas MD - 01/04/2024 US OB FIRST TRIMESTER (LESS THAN 14 WEEKS) TA AND TV AND LTD [id number]/04/2024 9:45 AM SIGNS AND SYMPTOMS/COMMENTS: spotting, abnormal [...] 3 days Prior ultrasound dating: Not available. [place]-rump length: No pole is identified. IMPRESSION: of unknown location. Differential considerations includenon-visualized early intrauterine , non-visualized ectopicpregnancy, and completed early loss. Follow-up with serial HCG,obstetric ultrasound, and FLIGHT ATTENDANT RAMP consultation is suggested. Reference: Mandi Falcon, et al. A lexicon for first-trimester US:Society of Radiologists in Ultrasound Consensus Conferencerecommendations. Radiology 312.2 (2023): [id number]. [id number] us Kirby Velazquez MD IMG US OB ORDERABLES Final Result * HOLD LAVENDER TOP (01/04/2024 9:30 EDT) Hold Hold 01/04/2024 10:45 EDT [facility] Blood VENOUS BLOOD / Unknown Venipuncture / Unknown 01/04/2024 9:30 EDT 01/04/2024 9:33 EDT us Kirby Velazquez MD LAB INFO SERVICE AND SUPPOR T & PHONE RESULT Final Result [facility] [address] [place] [id number] * HOLD GREEN TOP (01/04/2024 9:30 EDT) Hold Hold 01/04/2024 10:45 EDT [facility] Blood VENOUS BLOOD / Unknown Venipuncture / Unknown 01/04/2024 9:30 EDT 01/04/2024 9:33 EDT us Kirby Velazquez MD LAB INFO SERVICE AND SUPPOR T & PHONE RESULT Final Result Performing Organization Address City/[facility]/ZIP Co de Phone Number [facility] [address] [place] [phone] * HOLD BLUE TOP (01/04/2024 9:30 EDT) Hold Hold 01/04/2024 10:45 EDT [facility] Blood VENOUS BLOOD / Unknown Venipuncture / Unknown 01/04/2024 9:30 EDT 01/04/2024 9:34 EDT us Kirby Velazquez MD LAB INFO SERVICE AND [facility] T & PHONE RESULT Final Result [facility] [address] [place] [address] * PROGESTERONE (12/23/2023 9:26 EDT) Only the most recent of8 resultswithin the time period is included. Progesterone 27.9 See Table ng/mL 12/23/2023 10:46 EDT [facility] Comment: Female Reference [...] Unknown 12/23/2023 9:26 EDT 12/23/2023 9:55 EDT us Cheryl Fuller MD CHEMISTRY & BLOOD GAS OR DERABLES Final Result Performing Organization Address [facility] de Phone Number [facility] [address] [place] [address] * ESTRADIOL, ADULTS (12/23/2023 9:26 EDT) Only the most recent of11 resultswithin the time period is included. Estradiol 605 See Note pg/mL 12/23/2023 10:43 EDT [facility] Comment: NOTE: FEMALE [...] Unknown 12/23/2023 9:26 EDT 12/23/2023 9:55 EDT us Cheryl Fuller MD CHEMISTRY & BLOOD GAS OR DERABLES Final Result Performing Organization Address [facility] Co de Phone Number [facility] [address] [place] [address] * POC IVF/KIANNA US GUIDANCE (12/16/2023 10:50 EDT) Narrative 12/16/2023 10:50 EDT This is a non-reportable exam. us Layla Reid MD [facility] US POC ORDERABLES Fin al Result * POC IVF/KIANNA US GUIDANCE (12/13/2023 7:59 EDT) Narrative 12/13/2023 7:59 EDT This is a non-reportable exam. us Layla Reid MD [facility] US POC ORDERABLES Fin al Result * LH (12/12/2023 7:25 EDT) Luteinizing Hormone 10.5 See Note mIU/mL 12/12/2023 9:39 EDT [facility] Comment: NOTE: Female Reference Ranges: Pre-Pubertal: ?<6.0 mIU/mL Menstruating: Follicular Phase(-12 to -4 days: ??1.9 - 12.5 mIU/mL Midcycle(-3 to +2 days): ?8.7 - 76.3 mIU/mL Luteal Phase(+4 to +12 days): ? 0.5 - 16.9 mIU/mL Post Menopausal: 15.9 - 54.0 mIU/mL Blood VENOUS BLOOD / Unknown Venipuncture / Unknown 12/12/2023 7:25 EDT 12/12/2023 7:58 EDT us Aurora Hinton MD CHEMISTRY & BLOOD GAS ORDERAB LES Final Result [facility] [address] [place] [address] * US COMMISSARY PRODUCTION SUPERVISOR EXAM (KIANNA ONLY) (12/11/2023 9:36 EDT) Anatomical [...] mild Impression ========= USE (IVF Follicular) - 26164 1. Uterus appears normal with trilaminar endometrium. [...] mild Impression ========= USE (IVF Follicular) - 38999 1. Uterus appears normal with trilaminar endometrium. 2. Ovarian follicles appear to be in late folliculogenesis. 3. Small amount of fluid in the cul de sac. Follow-up ======== Labs today, plan per ART team. Comment ======== N97.8 female infertility, other DATE OF SERVICE: 12/11/2023 us Lucrecia Land MD IMG US OB ORDERABLES Fin al Result * US COMMISSARY PRODUCTION SUPERVISOR EXAM (KIANNA ONLY) (12/09/2023 7:43 EDT) Anatomical Region Laterality Modality Ultrasound 12/09/2023 7:45 EDT Narrative 12/09/2023 16:42 EDT Indication ======== Antag on GN 1.5 Male factor (s/p vasectomy with TESE sample) [...] fluid Impression ========= USE (IVF Follicular) - 92509 1. Anteverted uterus with trilaminar endometrium 2. [...] fluid Impression ========= USE (IVF Follicular) - 90742 1. Anteverted uterus with trilaminar endometrium 2. Stimulated ovaries bilaterally with folliculogenesis as measuredabove 3. No significant free fluid Follow-up ======== Labs today, plan per KIANNA team Comment ======== Ultrasound findings discussed w/patient. Z31.83 encounter for assisted reproductive fertility procedure cycle DATE OF SERVICE: 12/09/2023 us Lucrecia Land MD IMG US OB ORDERABLES Fin al Result * US COMMISSARY PRODUCTION SUPERVISOR EXAM (KIANNA ONLY) (12/07/2023 7:30 EDT) Anatomical [...] trace Impression ========= USE (IVF Follicular) - 60541 1. Anteverted uterus with trilaminar endometrium 2. [...] trace Impression ========= USE (IVF Follicular) - 57209 1. Anteverted uterus with trilaminar endometrium 2. Early folliculogenesis as measured above 3. No significant free fluid Follow-up ======== Labs today, plan per KIANNA team Comment ======== Z31.83 encounter for assisted reproductive fertility procedure cycle Ultrasound findings discussed w/patient. DATE OF SERVICE: 12/07/2023 us Lucrecia Land MD IMG US OB ORDERABLES Fin al Result * US COMMISSARY PRODUCTION SUPERVISOR EXAM (KIANNA ONLY) (12/05/2023 8:52 EDT) Anatomical [...] fertility procedure cycle DATE OF SERVICE: 12/05/2023 us Lucrecia Land MD IMG US OB ORDERABLES Fin al Result * US BASELINE INVITRO (11/26/2023 7:53 EDT) [...] free fluid visualized Impression ========= Baseline - 16961 with mock as above Follow-up ======== per [...] free fluid visualized Impression ========= Baseline - 27622 with mock as above Follow-up ======== per KIANNA Comment ======== Mock CX 3 Fund 7 transf 6 Z31.83 encounter for assisted reproductive fertility procedure cycle DATE OF SERVICE: 11/26/2023 us Lucrecia Land MD [facility] [place] Fin al Result * HEPATITIS C AB W REFLEX TO HCV RNA BY PCR (09/06/2023 10:26 EDT) Hep C Antibody Negative Negative 09/06/2023 12:56 EDT [facility] Blood VENOUS BLOOD / Unknown Venipuncture / Unknown 09/06/2023 10:26 EDT 09/06/2023 10:50 EDT us Elizabeth Ingram DO CHEMISTRY & BLOOD GAS ORDER AIDA Final Result [facility] [address] [place] [phone] from Last 3 Months or Most Recently Relevant to Health Maintenance Insurance Care Teams Aligner Typewriter Relationship Specialty Start Date End Date Lisa Mcgregor FNP [address] [facility] [address] [place] [phone] PCP - General 05/05/22 Md Alfaro MD 05/05/22
--- OUTSIDE RECORDS SUMMARY | 2024-01-20 15:11 | XMS_ITS | Encounter Summary ---
Author Organization [facility] Address [address] [place] [address] Care Team Providers Care Press Hand Name Role Phone BalbirLisa [facility] Primary Care Provider [phone] Md MICHAELA Alfaro Unavailable Unavailable Encounter Details Date Type Department Care Team (Late st Contact Info) Description 01/16/2024 9:00 EST Phlebotomy Only [facility] 2 Phlebotomy [address] [place] [address] Ironworker, Acc Phlebotomy Encounter for in vitro fertilization Social [...] 9:09 EST Encounter for in vitro fertilization documented in this encounter Results * (ABNORMAL) QUANT BETA HCG, (01/16/2024 9:09 EST) Beta HCG Quant, 71(H) <5 mIU/mL 01/16/2024 9:50 EST [facility] Comment: NOTE: [...] & BLOOD GAS ORD ERABLES Final Result [facility] [address] [place] [address] documented in this encounter Visit Diagnoses Diagnosis Encounter for in vitro fertilization Encounter for assisted reproductive fertility procedure cycle documented in this encounter Care Teams Press Hand Relationship Specialty Start Date End Date Lisa Mcgregor FNP [address] [facility] [address] [place] [phone] PCP - General 05/05/22 Md Alfaro MD 05/05/22 documented as of this encounter
--- OUTSIDE RECORDS SUMMARY | 2024-01-20 15:11 | XMS_ITS | Encounter Summary ---
Author Organization [facility] Address [address] [place] [address] Care Team Providers Care Camera Prototyping Engineer Name Role Phone BalbirLisa [facility] Primary Care Provider [phone] Md MICHAELA Alfaro Unavailable Unavailable Encounter Details Date Type Department Care Team (Late st Contact Info) Description 12/31/2023 9:00 EDT Phlebotomy Only [facility] 2 Phlebotomy [address] [place] [address] Hot Wire Glass Tube Cutter, Acc Phlebotomy Encounter for in vitro fertilization [...] Quant, 89(H) <5 mIU/mL 12/31/2023 10:27 EDT [facility] Comment: NOTE: : Negative: Less than 5mIU/mL Indeterminant: Between 5 and 25 mIU/mL, recommend repeat testing in 48 hours Positive: Greater than 25 mIU/mL The results of this assay can be falsely lowered due to the consumption of Biotin. Blood VENOUS BLOOD / Unknown Venipuncture / Unknown 12/31/2023 9:21 EDT 12/31/2023 9:43 EDT us Layla Reid MD CHEMISTRY & BLOOD GAS ORD ERABLES Final Result [facility] [address] [place] [address] documented in this encounter Visit Diagnoses Diagnosis Encounter for in vitro fertilization Encounter for assisted reproductive fertility procedure cycle documented in this encounter Care Teams Camera Prototyping Engineer Relationship Specialty Start Date End Date Lisa Mcgregor FNP [address] [facility] [address] [place] [phone] PCP - General 05/05/22 Md Alfaro MD 05/05/22 documented as of this encounter
--- OUTSIDE RECORDS SUMMARY | 2024-01-20 15:11 | XMS_ITS | Encounter Summary ---
Author Organization [facility] Address [address] [place] [address] Care Team Providers Care Production Scheduler Name Role Phone BalbirLisa [facility] Primary Care Provider [phone] Md MICHAELA Alfaro Unavailable Unavailable Reason for Visit * Reason Comments Follow-up Encounter Details Date Type Department Care Team (Late st Contact Info) Description 01/14/2024 9:30 EST Procedure visit [facility] - [facility] [address] [place], [place] [id number] Aurora Sanders MD [address] [facility], [address] [place] [phone] of unknown anatomic location (Primary Dx) Social History Tobacco Use Types [...] as of this encounter Progress Notes * Fabiana Hallman MD - 01/14/2024 0929 EST 33 y.o. with PUL and abnormal hCG trend following a Day 3 ET on 12/15 presenting for US. TVUS: Normal anteverted uterus with uniformly thin endometrium. No area of increased vascularity. Normal post-IVF ovaries; no adnexal masses seen that would be concerning for ectopic . Results: BHCG Date: 12/27/23 Result: 18 > 38 > 89 > 115 > 80 > 54 > 123 (01/12) > 118 tod ay (01/23) Discussed that Tiny still has of unknown location and abnormal hcg trend, however, reassuring TVUS today without adnexal masses concerning for ectopic . We discussed options ofuterine aspiration, however, given thin lining 3.2mm, might not yield any valuable information for her care at this point. Discussed medical treatment of ectopic would MTX, however, given no visualization of ectopic and no increase in bchg would not recommend initiating at this time. -Plan for repeat bHCG in 48 hours on 01/15. Patient is comfortable with this plan. -All questions answered. Discussed with KIANNA attendings Dr. Fuller and Dr. Sanders. Fabiana Hallman MD Reproductive Endocrinology and Infertility Fellow ([id number]) [facility] Attestation statement: I saw and counseled the patient with the fellow at the time of the visit. I agree with the findings and the plan of care documented in the above note. Aurora Sanders MD documented in this encounter Miscellaneous Notes * Addendum Note - Aurora Sanders MD - 01/14/2024 2810 ESTAddended by: AURORA SANDERS on: 01/14/2024 11:26 Modules accepted: Level of Service documented in this encounter Plan of Treatment Not on file documented as of this encounter Procedures Procedure Name Priority Date/Time Associated Diagnosis Comments QUANT BETA HCG, STAT 01/14/2024 9:32 EST of unknown anatomic location documented in this encounter Results * (ABNORMAL) QUANT BETA HCG, (01/14/2024 9:32 EST) Beta HCG Quant, 118(H) <5 mIU/mL 01/14/2024 10:21 EST [facility] Comment: NOTE: : Negative: Less than 5mIU/mL Indeterminant: Between 5 and 25 mIU/mL, recommend repeat testing in 48 hours Positive: Greater than 25 mIU/mL The results of this assay can be falsely lowered due to the consumption of Biotin. Blood VENOUS BLOOD / Unknown Venipuncture / Unknown 01/14/2024 9:32 EST 01/14/2024 9:42 EST us Aurora Sanders MD CHEMISTRY & BLOOD GAS ORD ERABLES Final Result [facility] [address] [place] [address] documented in this encounter Visit Diagnoses Diagnosis of unknown anatomic location- Primary state, incidental documented in this encounter Care Teams Production Scheduler Relationship Specialty Start Date End Date Lisa Mcgregor FNP [address] [place] [phone] PCP - General 05/05/22 Md Alfaro MD 05/05/22 documented as of this encounter
--- OUTSIDE RECORDS SUMMARY | 2024-01-20 15:11 | XMS_ITS | Clinical Summary ---
Author Organization [facility] Address [address] [place] [address] Care Team Providers Care Lock Tender Chief Operator Name Role Phone BalbirLisa [facility] Primary Care Provider [phone] Md MICHAELA Alfaro Unavailable Unavailable Allergies Active Allergy Reactions Criticality Noted Date Comments Amoxicillin-Pot Clavulanate Rash 05/14/19 23 Medications acyclovir (ZOVIRAX) 200 mg capsule Take 2 Capsules by mouth 2 times daily. Active 25/iron fum/folic/dha (-1 ORAL) Take by mouth daily. Active chorionic gonadotropin, human (PREGNYL) 10,000 unit injection Injected 1 mL into the skin once when directed. 1 Each 11/02/19 24 Active Additional Information Patient not taking.Reported on 01/13/2024 cholecalciferol , Vitamin D3, 25 mcg (1,000 unit) tablet Take 2 Tablets by mouth daily. Active leuprolide (LUPRON) 1 mg/0.2 mL kit Inject 80 units into the skin 12 hours apart when direct. BILL TO IVF CLINIC PLAN, GLOBAL. 1 Each 12/07/19 24 Active Additional Information Patient not taking.Reported on 01/13/2024 menotropins (MENOPUR) 75 unit solution for subcutaneous injection Inject 150 Units into the skin daily. 5 Each 12/09/19 24 Active Additional Information Patient not taking.Reported on [...] by mouth 3 times daily. 90 Tablet 12/13/192023 Discontinued(R eorder) oxyCODONE (ROXICODONE) 5 mg immediate [...] associated with male factors 09/17/2023 Comments Yes Encounters Date Type Department Care Team Description 01/20/2024 Orders Only [facility] Reproductive Medicine & Infertility [address] [phone] Aleisha Che RN Female infertility (Primary Dx) 01/18/2024 Documentation Visit [facility] Reproductive Medicine & Infertility Center [address] [id number] Lucrecia Land MD 01/16/2024 9:00 EST Phlebotomy Only [facility] ED Center 2 Phlebotomy [address] [place] [address] Sales Review Clerk, Acc Phlebotomy Encounter for in vitro fertilization 01/16/2024 Telephone [facility] Reproductive Medicine & Infertility [address] [address] Lucrecia Land MD Results 01/14/2024 9:30 EST Procedure visit [facility] Reproductive Medicine & Infertility [address] [address] Layla Reid MD of unknown anatomic location (Primary Dx) 01/14/2024 8:31 EST - 01/14/2024 23:59 EST Hospital Encounter [facility] OBGYN Services [address] [address] of unknown anatomic location Discharge Disposition: Home or Self Care 01/14/2024 Orders Only [facility] Reproductive Medicine & Infertility [address] [address] Fabiana Hallman MD of unknown anatomic location (Primary Dx) 01/13/2024 13:15 EST Telemedicine [facility] Medicine & Infertility [address] [address] Layla Reid MD Encounter for assisted reproductive fertility cycle (Primary Dx) 01/04/2024 8:33 EDT - 01/04/2024 12:50 EDT Emergency [facility] Emergency Department - [address] [address] Kirby Velazquez MD Threatened (Primary Dx) Discharge Disposition: Home or Self Care 01/04/2024 Travel 01/02/2024 8:30 EDT Phlebotomy Only [facility] ED Center 2 Phlebotomy [address] [place] [address] Sales Review Clerk, Acc Phlebotomy resulting from assisted reproductive technology in first trimester 12/31/2023 9:00 EDT Phlebotomy Only [facility] ED Center 2 Phlebotomy [address] [place] [address] Sales Review Clerk, Acc Phlebotomy Encounter for in vitro fertilization 12/29/2023 9:00 EDT Phlebotomy Only [facility] ED Center 2 Phlebotomy [address] [place] [address] Sales Review Clerk, Acc Phlebotomy Encounter for in vitro fertilization 12/29/2023 Telephone [facility] Reproductive Medicine & Infertility [facility] [address] [place] [address] Lucrecia Land MD Results 12/29/2023 Orders Only [facility] Reproductive Medicine & Infertility [address] [address] Aleisha Che, CHAPARRO Encounter for in vitro fertilization (Primary Dx) 12/27/2023 8:45 EDT Phlebotomy Only [facility] Center 2 Phlebotomy [address] [place] [address] Sales Review Clerk, Acc Phlebotomy Encounter for in vitro fertilization 12/27/2023 Orders Only [facility] Reproductive Medicine & Infertility [address] [address] Aleisha Che, RN Encounter for in vitro fertilization (Primary Dx) 12/24/2023 Orders Only [address] [address] Aleisha Che, RN Encounter for in vitro fertilization (Primary Dx) 12/23/2023 9:00 EDT Phlebotomy Only [facility] ED Center 2 Phlebotomy [address] [place] [address] Sales Review Clerk, Acc Phlebotomy Female infertility 12/23/2023 Documentation Visit [facility] Medicine Infertility [facility] [address] [place] [address] Lucrecia Land MD 12/20/2023 9:00 EDT Phlebotomy Only [facility] ED Center 2 Phlebotomy [address] [place] [address] Sales Review Clerk, Acc Phlebotomy Female infertility 12/20/2023 Documentation Visit [facility] Reproductive Medicine & Infertility [address] [phone] Lucrecia Land MD 12/16/2023 11:00 EDT - 12/16/2023 23:59 EDT Hospital Encounter [facility] Reproductive Medicine & Infertility [address] [phone] Layla Reid MD Encounter for assisted reproductive fertility procedure cycle (Primary Dx) Discharge Disposition: Home or Self Care 12/16/2023 10:50 EDT - 12/16/2023 10:59 EDT Hospital Encounter [facility] Reproductive Medicine & Infertility [address] [address] Encounter for assisted reproductive fertility procedure cycle Discharge Disposition: Home or Self Care 12/16/2023 9:15 EDT Phlebotomy Only [facility] ED Center [address] [place] [id number] Sales Review Clerk, [facility] Phlebotomy Encounter for assisted reproductive fertility cycle; Encounter for assisted reproductive fertility procedure cycle [Z31.83] 12/14/2023 Telephone [facility] Reproductive Medicine & Infertility [address] [phone] Lucrecia Land MD Results 12/14/2023 Orders Only [facility] Reproductive Medicine & Infertility [address] [phone] Lucrecia Land MD Female infertility (Primary Dx) 12/13/2023 8:45 EDT Anesthesia Event [facility] Reproductive Medicine & Infertility [address] [address] Amparo Rivera MD Pearce, Laurie Ann, CRNA 12/13/2023 7:59 EDT - 12/13/2023 23:59 EDT Hospital Encounter [facility] Reproductive Medicine & Infertility [address] [phone] Discharge Disposition: Home or Self Care 12/13/2023 7:49 EDT - 12/13/2023 7:58 EDT Hospital Encounter [facility] Reproductive Medicine & Infertility [address] [address] Layla Reid MD Encounter for assisted reproductive fertility procedure cycle [Z31.83] (Primary Dx) Discharge Disposition: Home or Self Care 12/12/2023 7:15 EDT Phlebotomy Only [facility] ED Center 2 Phlebotomy [address] [place] [address] Sales Review Clerk, Acc Phlebotomy Encounter for assisted reproductive fertility cycle; Encounter for assisted reproductive fertility procedure cycle 12/12/2023 Documentation Visit [facility] Medicine Infertility [address] [address] Lucrecia Land MD 12/11/2023 9:10 EDT Procedure visit [facility] Medicine & Infertility [address] [address] Aurora Hinton MD Encounter for assisted reproductive fertility procedure cycle (Primary Dx) 12/11/2023 8:38 EDT - 12/11/2023 23:59 EDT Hospital Encounter [address] [address] Encounter for assisted reproductive fertility cycle Discharge Disposition: Home or Self Care 12/11/2023 8:15 EDT Phlebotomy Only [facility] ED Center 2 Phlebotomy [address] [place] [address] Sales Review Clerk, Acc Phlebotomy Encounter for assisted reproductive fertility cycle 12/10/2023 Orders Only [facility] Reproductive Medicine & Infertility [address] [address] Aleisha Che, CHAPARRO 12/09/2023 8:00 EDT Procedure visit [facility] Reproductive Medicine & Infertility [address] [address] Sheila Robb MD Encounter for assisted reproductive fertility cycle (Primary Dx) 12/09/2023 7:35 EDT - 12/09/2023 23:59 EDT Hospital Encounter [address] [address] Encounter for assisted reproductive fertility cycle Discharge Disposition: Home or Self Care 12/09/2023 Orders Only [facility] Medicine & Infertility [address] [address] Aleisha Che RN 12/07/2023 8:00 EDT Procedure visit [facility] Medicine & Infertility [address] [address] Aurora Hinton MD Encounter for assisted reproductive fertility cycle (Primary Dx) 12/07/2023 7:25 EDT - 12/07/2023 23:59 EDT Hospital Encounter [address] [address] Encounter for assisted reproductive fertility cycle Discharge Disposition: Home or Self Care 12/07/2023 Orders Only [facility] Medicine & Infertility [address] [address] Aleisha Che RN 12/05/2023 9:30 EDT Procedure visit [facility] Medicine & Infertility [address] [address] Cheryl Fuller MD Encounter for assisted reproductive fertility cycle (Primary Dx) 12/05/2023 8:34 EDT - 12/05/2023 23:59 EDT Hospital Encounter [address] [address] Encounter for assisted reproductive fertility cycle Discharge Disposition: Home or Self Care 12/05/2023 7:45 EDT Phlebotomy Only [facility] ED Center 2 Phlebotomy [address] [place] [address] Sales Review Clerk, Acc Phlebotomy Encounter for assisted reproductive fertility procedure cycle; Encounter for assisted reproductive fertility cycle 12/03/2023 8:45 EDT Phlebotomy Only [facility] ED Center 2 Phlebotomy [address] [place] [address] Sales Review Clerk, Acc Phlebotomy Encounter for assisted reproductive fertility procedure cycle 12/03/2023 Documentation Visit [facility] Reproductive Medicine & Infertility [facility] [address] [place] [address] Lucrecia Land MD 12/01/2023 8:45 EDT Phlebotomy Only [facility] ED Center 2 Phlebotomy [address] [place] [address] Sales Review Clerk, Acc Phlebotomy Encounter for assisted reproductive fertility procedure cycle 12/01/2023 Documentation Visit [facility] Reproductive Medicine & Infertility [facility] [address] [place] [address] Lucrecia Land MD 11/29/2023 8:45 EDT Phlebotomy Only [facility] ED Center 2 Phlebotomy [address] [place] [address] Sales Review Clerk, Acc Phlebotomy Encounter for assisted reproductive fertility procedure cycle 11/29/2023 Telephone [facility] Reproductive Medicine & Infertility [address] [address] Olena Tucker, CHAPARRO Coordination Of Care 11/29/2023 Documentation Visit [facility] Reproductive Medicine & Infertility [address] [address] Lucrecia Land MD 11/26/2023 8:45 EDT Phlebotomy Only [facility] ED Center 2 Phlebotomy [address] [place] [address] Sales Review Clerk, Acc Phlebotomy Encounter for assisted reproductive fertility procedure cycle 11/26/2023 8:00 EDT Procedure visit [facility] Reproductive Medicine & Infertility [address] [address] Sheila Robb MD Encounter for assisted reproductive fertility procedure cycle (Primary Dx) 11/26/2023 7:25 EDT - 11/26/2023 23:59 EDT Hospital Encounter [facility] OBGYN Services [address] [phone] Encounter for assisted reproductive fertility cycle Discharge Disposition: Home or Self Care 11/02/2023 Orders Only [facility] Reproductive Medicine & Infertility Center - [address] [id number] Aleisha Che RN from Last 3 Months [...] SAB Ectopic Multiple Livin g Live Births 2 1 1 1 Date Outcome GA Total Labor Labor/2nd/3rd Weight Sex Type Anes PTL Nancy A1 A5 Name Clin 2014 Term Vag-Spo nt Current Last Filed Vital Signs Vital Sign Reading [...] 28.62 11/26/2023 0838 EDT Plan of Treatment Health Maintenance Due Date Last Done Comments Hepatitis B Vaccine (1 of 3 - 19+ 3-dose series) 05/23 COVID-19 Vaccine ( - 2023- season) 2023 RSV Immunization ( o r 60+ Years) (1 - 1-dose 75+ series) 2064 Hepatitis C Screen Completed 09/06/2023 Procedures Procedure [...] Encounter for assisted reproductive fertility cycle US PROCESSOR GRAIN EXAM (KIANNA ONLY) Routine 12/11/2023 9:36 EDT Encounter for assisted reproductive fertility cycle ESTRADIOL, ADULTS Routine 12/11/2023 8:1 2 EDT Encounter for assisted reproductive fertility cycle PROGESTERONE Routine 12/11/2023 8:12 EDT Encounter for assisted reproductive fertility cycle US PROCESSOR GRAIN EXAM (KIANNA ONLY) Routine 12/09/2023 7:43 EDT Encounter for assisted reproductive fertility cycle ESTRADIOL, ADULTS Routine 12/07/2023 8:0 7 EDT Encounter for assisted reproductive fertility cycle PROGESTERONE Routine 12/07/2023 8:07 EDT Encounter for assisted reproductive fertility cycle US PROCESSOR GRAIN EXAM (KIANNA ONLY) Routine 12/07/2023 7:30 EDT Encounter for assisted reproductive fertility cycle US PROCESSOR GRAIN EXAM (KIANNA ONLY) Routine 12/05/2023 8:52 EDT [...] Quant, 71(H) <5 mIU/mL 01/16/2024 9:50 EST [facility] Comment: NOTE: : Negative: Less [...] & BLOOD GAS ORD ERABLES Final Result [facility] [address] [place] [address] * US OB FIRST TRIMESTER [...] Good view Impression ========= OB Transvaginal - 07246 Normal anteverted uterus with uniformly thin endometrium. [...] Good view Impression ========= OB Transvaginal - 84007 Normal anteverted uterus with uniformly thin endometrium. [...] Reid MD IMG US OB ORDERABLES Jovanna l Result * US OB FIRST TRIMESTER (LESS [...] 3 days Prior ultrasound dating: Not available. [facility]. Meinrad-rump length: No pole is identified. IMPRESSION: of unknown location. Differential considerations include non- visualized early intrauterine , non-visualized ectopic , and completed early loss. Follow-up with serial HCG, obstetric ultrasound, and GEOMORPHOLOGY TEACHER consultation is suggested. Reference: Mandi Falcon., et al. A lexicon for first-trimester US: Society of Radiologists in Ultrasound Consensus Conference recommendations. Radiology 312.2 (2023): [id number]. [id number] Narrative 01/04/2024 10:34 EDT US OB FIRST TRIMESTER (LESS THAN 14 WEEKS) TA AND TV AND LTD DUPLEX ??01/04/2024 9:45 AM SIGNS AND SYMPTOMS/COMMENTS: ??spotting, abnormal HCG COMPARISON: Pelvic ultrasound on 12/16/2023 DUPLEX: Indication for Duplex: Concern for ovarian torsion and/or mass Technique: Color and spectral Doppler ultrasound of the pelvis was performed. Resulting Agency Comment [id number] Procedure Note Romeo Salinas MD - 01/04/2024 US OB FIRST TRIMESTER (LESS THAN 14 WEEKS) TA AND TV AND LTD [id number]/04/2024 9:45 AM SIGNS AND SYMPTOMS/COMMENTS: spotting, abnormal [...] 3 days Prior ultrasound dating: Not available. St. Meinrad-rump length: No pole is identified. IMPRESSION: of unknown location. Differential considerations includenon-visualized early intrauterine , non-visualized ectopicpregnancy, and completed early loss. Follow-up with serial HCG,obstetric ultrasound, and GEOMORPHOLOGY TEACHER consultation is suggested. Reference: Mandi Falcon., et al. A lexicon for first-trimester US:Society of Radiologists in Ultrasound Consensus Conferencerecommendations. Radiology 312.2 (2023): [id number]. [id number] us Kirby Velazquez MD IMG US OB ORDERABLES Final Result * HOLD [facility] (01/04/2024 9:30 EDT) Hold Hold 01/04/2024 10:45 EDT [facility] Blood VENOUS BLOOD / Unknown Venipuncture / Unknown 01/04/2024 9:30 EDT 01/04/2024 9:33 EDT us Kirby Velazquez MD LAB INFO SERVICE AND SUPPOR T & PHONE RESULT Final Result [facility] [address] [place] [address] * HOLD GREEN TOP (01/04/2024 9:30 EDT) Hold Hold 01/04/2024 10:45 EDT [facility] Blood VENOUS BLOOD / Unknown Venipuncture / Unknown 01/04/2024 9:30 EDT 01/04/2024 9:33 EDT us Kirby Velazquez MD LAB INFO SERVICE AND SUPPOR T & PHONE RESULT Final Result [facility] [address] [place] [address] * HOLD BLUE TOP (01/04/2024 9:30 EDT) [facility] Hold Hold 01/04/2024 10:45 EDT [facility] Blood VENOUS BLOOD / Unknown Venipuncture / Unknown 01/04/2024 9:30 EDT 01/04/2024 9:34 EDT us Kirby Velazquez MD LAB INFO SERVICE AND SUPPOR T & PHONE RESULT Final Result [facility] [address] [place] [address] * PROGESTERONE (12/23/2023 9:26 EDT) Only the most recent of8 resultswithin the time period is included. [facility] Progesterone 27.9 See Table ng/mL 12/23/2023 10:46 EDT [facility] Comment: Female Reference Ranges: PHYSIOLOGICAL [...] & BLOOD GAS OR DERABLES Final Result [facility] [address] [place] [address] * ESTRADIOL, ADULTS (12/23/2023 9:26 EDT) Only the most recent of11 resultswithin the time period is included. Estradiol 605 See Note pg/mL 12/23/2023 10:43 EDT [facility] Comment: NOTE: FEMALE REFERENCE RANGES: [...] & BLOOD GAS OR DERABLES Final Result [facility] [address] [place] [address] * POC IVF/KIANNA US GUIDANCE (12/16/2023 10:50 EDT) Narrative 12/16/2023 10:50 EDT This is a non-reportable exam. us Layla Reid MD [facility] US POC ORDERABLES Fin al Result * POC IVF/KIANNA US GUIDANCE (12/13/2023 7:59 EDT) Narrative 12/13/2023 7:59 EDT This is a non-reportable exam. us Layla Reid MD [facility] US POC ORDERABLES Fin al Result * LH (12/12/2023 7:25 EDT) Luteinizing Hormone 10.5 See Note mIU/mL 12/12/2023 9:39 EDT [facility] Comment: NOTE: Female Reference Ranges: [...] & BLOOD GAS ORDERAB LES Final Result [facility] [address] [place] [address] * US PROCESSOR GRAIN EXAM (KIANNA ONLY) (12/11/2023 9:36 EDT) Anatomical [...] mild Impression ========= USE (IVF Follicular) - 85827 1. Uterus appears normal with trilaminar endometrium. [...] mild Impression ========= USE (IVF Follicular) - 87043 1. Uterus appears normal with trilaminar endometrium. 2. Ovarian follicles appear to be in late folliculogenesis. 3. Small amount of fluid in the cul de sac. Follow-up ======== Labs today, plan per ART team. Comment ======== N97.8 female infertility, other DATE OF SERVICE: 12/11/2023 us Lucrecia Land MD IMG US OB ORDERABLES Fin al Result * US PROCESSOR GRAIN EXAM (KIANNA ONLY) (12/09/2023 7:43 EDT) Anatomical [...] fluid Impression ========= USE (IVF Follicular) - 27170 1. Anteverted uterus with trilaminar endometrium 2. [...] fluid Impression ========= USE (IVF Follicular) - 98164 1. Anteverted uterus with trilaminar endometrium 2. Stimulated ovaries bilaterally with folliculogenesis as measuredabove 3. No significant free fluid Follow-up ======== Labs today, plan per KIANNA team Comment ======== Ultrasound findings discussed w/patient. Z31.83 encounter for assisted reproductive fertility procedure cycle DATE OF SERVICE: 12/09/2023 us Lucrecia Land MD IMG US OB ORDERABLES Fin al Result * US PROCESSOR GRAIN EXAM (KIANNA ONLY) (12/07/2023 7:30 EDT) Anatomical [...] trace Impression ========= USE (IVF Follicular) - 15344 1. Anteverted uterus with trilaminar endometrium 2. [...] trace Impression ========= USE (IVF Follicular) - 15615 1. Anteverted uterus with trilaminar endometrium 2. Early folliculogenesis as measured above 3. No significant free fluid Follow-up ======== Labs today, plan per KIANNA team Comment ======== Z31.83 encounter for assisted reproductive fertility procedure cycle Ultrasound findings discussed w/patient. DATE OF SERVICE: 12/07/2023 us Lucrecia Land MD IMG US OB ORDERABLES Fin al Result * US PROCESSOR GRAIN EXAM (KIANNA ONLY) (12/05/2023 8:52 EDT) Anatomical [...] 12/05/2023 Lucrecia Land MD IMG US OB ORDERABLES Fin al Result * US BASELINE INVITRO (11/26/2023 7:53 EDT) Anatomical Region Laterality Modality Pelvis Ultrasound 11/26/2023 8:01 EDT Narrative 11/26/2023 8:21 EDT Indication ======== IVF cycle #1 baseline GN 2/ Uterus ====== Uterus: ?Appears normal Myometrium: ?Mild adenomyosis Endometrium: ?? Thin endometrium Endometrial thickness, total ?? 4.3 mm Right Ovary ========= Rt ovary: ??Visualized, normal appearance Rt ovary other findings: ?? afc 10 Left Ovary ======== Lt ovary: ??Visualized, normal appearance Lt ovary other findings: ?? afc 6 Cul de Sac ========= No free fluid visualized Impression ========= Baseline - 52023 with mock as above Follow-up ======== per [...] free fluid visualized Impression ========= Baseline - 84849 with mock as above Follow-up ======== per KIANNA Comment ======== Mock CX 3 Fund 7 transf 6 Z31.83 encounter for assisted reproductive fertility procedure cycle DATE OF SERVICE: 11/26/2023 us [facility] Fin al Result * HEPATITIS C AB W REFLEX TO HCV RNA BY PCR (09/06/2023 10:26 EDT) Hep C Antibody Negative Negative 09/06/2023 12:56 EDT [facility] Blood VENOUS BLOOD / Unknown Venipuncture / Unknown 09/06/2023 10:26 EDT 09/06/2023 10:50 EDT Elizabeth Ingram DO CHEMISTRY & BLOOD GAS ORDER AIDA Final Result [facility] [address] [place] [address] from Last 3 Months or Most Recently Relevant to Health Maintenance Insurance Care Teams Lock Tender Chief Operator Relationship Specialty Start Date End Date Lisa Mcgregor FNP [address] [facility] [address] [place] [address] PCP - General 05/05/22 Md Alfaro MD 05/05/22
--- OUTSIDE RECORDS SUMMARY | 2024-01-20 15:11 | XMS_ITS | Encounter Summary ---
Author Organization [facility] Address [address] [place] [address] Care Team Providers Care Director Of Cath Lab Name Role Phone BalbirLisa [facility] Primary Care Provider [phone] Md MICHAELA Alfaro Unavailable Unavailable Encounter Details Date Type Department Care Team (Late st Contact Info) Description 01/14/2024 Orders Only [facility] Reproductive Medicine & Infertility Center - [facility] [address] [place], [place] [id number] Fabiana Hallman MD [address] [place] [phone] of unknown anatomic location (Primary Dx) Social [...] Orde r Schedule QUANT BETA HCG, Lab Routine of unknown anatomic location Expected: 01/18/2024 (Approximate), Expires: 01/17/2025 documented as of this encounter Results * (ABNORMAL) QUANT BETA HCG, (01/14/2024 9:32 EST) Beta HCG Quant, 118(H) <5 mIU/mL 01/14/2024 10:21 EST [facility] Comment: NOTE: : Negative: Less than 5mIU/mL Indeterminant: Between 5 and 25 mIU/mL, recommend repeat testing in 48 hours Positive: Greater than 25 mIU/mL The results of this assay can be falsely lowered due to the consumption of Biotin. Blood VENOUS BLOOD / Unknown Venipuncture / Unknown 01/14/2024 9:32 EST 01/14/2024 9:42 EST us Layla Reid MD CHEMISTRY & BLOOD GAS ORD ERABLES Final Result [facility] [address] [place] [address] documented in this encounter Visit Diagnoses Diagnosis of unknown anatomic location- Primary state, incidental documented in this encounter Care Teams Director Of Cath Lab Relationship Specialty Start Date End Date Lisa Mcgregor FNP [address] [place] [phone] PCP - General 05/05/22 Md Alfaro MD 05/05/22 documented as of this encounter
--- OUTSIDE RECORDS SUMMARY | 2024-01-20 15:11 | XMS_ITS | Encounter Summary ---
Author Organization [facility] Address [address] [place] [address] Care Team Providers Care Tree Worker Name Role Phone BalbirLisa [facility] [...] 8:33 EDT - 01/04/2024 12:50 EDT Emergency [facility] Emergency Department - [facility] [address] [place] [address] Kirby Velazquez MD 111 [facility], Level 1 [place] [address] Threatened (Primary Dx) Discharge Disposition: [...] sent through Care Everywhere. * Miscarriage: Threatened (Georgian) documented in this encounter Medications at Time [...] Means Destination Comment s Home or Self Long-Term documented in this encounter ED Notes * Raquel Hooker RN - 01/04/2024 1234 EDT AVS reviewed. IV removed. Pt successfully d/c'ed home with all belongings. To follow up with IVF clinic and PCP * Carol Pemberton - 01/04/2024 0938 EDT Blood drawn via saline lock per protocol, tiger, blue, green, and purple tube(s) sent to lab per order. * Raquel Hooker RN - 01/04/2024 0839 EDT Pt presenting today [...] ROM * Melody Ace RN - 01/04/2024 0855 EDT TCALL: ОЛЕГ MURCIA 89 REFERRED BY IVF CLINIC. ABNORMALLY RISING HCG, AND STARTED BLEEDING, R/O ECTOPIC. * Kirby Velazquez MD - 01/04/2024 0850 EDT Emergency Department Visit Medical Decision Making [...] 3 days Prior ultrasound dating: Not available. [place]-rump length: No pole is identified. IMPRESSION: of unknown location. Differential considerations include non- visualized early intrauterine , non-visualized ectopic , and completed early loss. Follow-up with serial HCG, obstetric ultrasound, and PUBLIC RELATIONS STUDIES DIRECTOR consultation is suggested. Reference: Mandi Falcon., et al. A lexicon for first-trimester US: Society of Radiologists in Ultrasound Consensus Conference recommendations. Radiology 312.2 (2023): [id number]. [id number] Narrative 01/04/2024 10:34 EDT US OB FIRST TRIMESTER (LESS THAN 14 WEEKS) TA AND TV AND LTD DUPLEX ??01/04/2024 9:45 AM SIGNS AND SYMPTOMS/COMMENTS: ??spotting, abnormal HCG COMPARISON: Pelvic ultrasound on 12/16/2023 DUPLEX: Indication for Duplex: Concern for ovarian torsion and/or mass Technique: Color and spectral Doppler ultrasound of the pelvis was performed. Resulting Agency Comment [id number] Procedure Note Romeo Salinas MD - 01/04/2024 US OB FIRST TRIMESTER (LESS THAN 14 WEEKS) TA AND TV AND LTD [id number]/04/2024 9:45 AM SIGNS AND SYMPTOMS/COMMENTS: spotting, abnormal [...] 3 days Prior ultrasound dating: Not available. [place]-rump length: No pole is identified. IMPRESSION: of unknown location. Differential considerations includenon-visualized early intrauterine , non-visualized ectopicpregnancy, and completed early loss. Follow-up with serial HCG,obstetric ultrasound, and PUBLIC RELATIONS STUDIES DIRECTOR consultation is suggested. Reference: Mandi Falcon, et al. A lexicon for first-trimester US:Society of Radiologists in Ultrasound Consensus Conferencerecommendations. Radiology 312.2 (2023): [id number]. [id number] us Kirby Velazquez MD IMG US OB ORDERABLES Final Result * HOLD BLUE TOP (01/04/2024 9:30 EDT) Hold Hold 01/04/2024 10:45 EDT [facility] Blood VENOUS BLOOD / Unknown Venipuncture / Unknown 01/04/2024 9:30 EDT 01/04/2024 9:34 EDT us Kirby Velazquez MD LAB INFO SERVICE AND SUPPOR T & PHONE RESULT Final Result Performing Organization Address [facility]/ZIP Co de Phone Number [facility] [address] [place] [address] * HOLD LAVENDER TOP (01/04/2024 9:30 EDT) Hold Hold 01/04/2024 10:45 EDT [facility] Blood VENOUS BLOOD / Unknown Venipuncture / Unknown 01/04/2024 9:30 EDT 01/04/2024 9:33 EDT us Kirby Velazquez MD LAB INFO SERVICE AND SUPPOR T & PHONE RESULT Final Result Performing Organization Address City/[facility]/ZIP Co de Phone Number [facility] [address] [place] [address] * HOLD GREEN TOP (01/04/2024 9:30 EDT) Hold Hold 01/04/2024 10:45 EDT [facility] Blood VENOUS BLOOD / Unknown Venipuncture / Unknown 01/04/2024 9:30 EDT 01/04/2024 9:33 EDT Kirby Velazquez MD LAB INFO SERVICE AND SUPPOR T & PHONE RESULT Final Result Performing Organization Address [facility] Co de Phone Number [facility] [address] [place], [place] [phone] * (ABNORMAL) QUANT BETA HCG, (01/04/2024 9:30 EDT) Beta HCG Quant, 80(H) <5 mIU/mL 01/04/2024 10:11 EDT [facility] Comment: NOTE: : Negative: Less than 5mIU/mL Indeterminant: Between 5 and 25 mIU/mL, recommend repeat testing in 48 hours Positive: Greater than 25 mIU/mL The results of this assay can be falsely lowered due to the consumption of Biotin. Blood VENOUS BLOOD / Unknown Venipuncture / Unknown 01/04/2024 9:30 EDT 01/04/2024 9:33 EDT Kirby Velazquez MD CHEMISTRY & BLOOD GAS ORDER AIDA Final Result Performing Organization Address City/[facility]/ZIP Co de Phone Number [facility] [address] [place], [place] [address] documented in this encounter Visit Diagnoses Diagnosis Threatened - Primary Threatened , unspecified as to episode of care documented in this encounter Care Teams Tree Worker Relationship Specialty Start Date End Date Lisa Mcgregor FNP [address] [place] [phone] PCP - General 05/05/22 Md Alfaro MD 05/05/22 documented as of this encounter
--- OUTSIDE RECORDS SUMMARY | 2024-01-20 15:11 | XMS_ITS | Encounter Summary ---
Author Organization [facility] Address [address] [place] [address] Care Team Providers Care Environmental Health Safety Engineer Name Role Phone Lisa Mcgregor Primary Care Provider [phone] Md MICHAELA Alfaro Unavailable Unavailable Encounter Details [...] on filedocumented in this encounter Care Teams Environmental Health Safety Engineer Relationship Specialty Start Date End Date Lisa Mcgregor FNP [address] [facility] [address] [place] [phone] PCP - General 05/05/22 Md Alfaro MD 05/05/22 documented as of this encounter
--- OUTSIDE RECORDS SUMMARY | 2024-01-20 15:11 | XMS_ITS | Encounter Summary ---
Author Organization Health system Address [address] [place] [address] Care Team Providers Care Medical Records Assistant Name Role Phone BalbirRaniy [facility] Primary Care Provider [phone] Md MICHAELA Alfaro Unavailable Unavailable Reason for Visit * Reason Onset Date Comments Results 01/16/2024 Encounter Details Date Type Department Care Team (Late st Contact Info) Description 01/16/2024 Telephone [facility] Reproductive Medicine & Infertility Center - [facility] [address] [place], [place] [phone] Lucrecia Land MD 111 [facility], [address] [place] [address] Results Social History Tobacco Use [...] Telephone Encounter - Lucrecia Land MD - 01/16/2024 1133 EST Call to review hCG which is falling. Tiny still feeling well, does have some spotting. Will plan for recheck in 2 days, then weekly if still falling. Lucrecia Land MD Reproductive Endocrinology and Infertility Fellow (PGY7) [facility] documented in this encounter Plan of Treatment Not on file documented as of this encounter Visit Diagnoses Not on filedocumented in this encounter Care Teams Medical Records Assistant Relationship Specialty Start Date End Date Lisa Mcgregor FNP [address] [facility] [address] [place] [phone] PCP - General 05/05/22 Md Alfaro MD 05/05/22 documented as of this encounter
--- OUTSIDE RECORDS SUMMARY | 2024-01-20 15:11 | XMS_ITS | Encounter Summary ---
Author Organization [facility] Address [address] [place] [address] Care Team Providers Care Clinical Appeals Specialist Name Role Phone [facility]aniy [facility] Primary Care Provider [phone] Md MICHAELA Alfaro Unavailable Unavailable Reason for Visit * Reason Onset Date Comments Results 12/29/2023 Encounter Details Date Type Department Care Team (Late st Contact Info) Description 12/29/2023 Telephone [facility] Reproductive Medicine & Infertility Center - [facility] [address] [place], [place] [phone] Lucrecia Land MD 111 [facility], [address] 4 [place] [address] Results Social History Tobacco Use [...] on filedocumented in this encounter Care Teams Clinical Appeals Specialist Relationship Specialty Start Date End Date Lisa Mcgregor FNP [address] [phone] PCP - General 05/05/22 Md Alfaro MD 05/05/22 documented as of this encounter
--- OUTSIDE RECORDS SUMMARY | 2024-01-20 15:12 | XMS_ITS | Encounter Summary ---
Author Organization [facility] Address [address] [place] [address] Care Team Providers Care Head Mva Reactor Operator Name Role Phone BalbirLisa [facility] Primary Care Provider Md MICHAELA Alfaro Unavailable Unavailable Encounter Details Date Type Department Care Team (Late st Contact Info) Description 11/29/2023 Documentation Visit [facility] Reproductive Medicine & Infertility Center - [address] [address] Lucrecia Land MD 111 [facility], [address] 4 [place] [phone] Social History Tobacco Use Types Packs/Day Years [...] MD Reproductive Endocrinology and Infertility Fellow (PGY7) [facility] documented in this encounter Plan of Treatment Not on file documented as of this encounter Visit Diagnoses Not on filedocumented in this encounter Care Teams Head Mva Reactor Operator Relationship Specialty Start Date End Date Lisa Mcgregor FNP [address] [phone] PCP - General 05/05/22 Md Alfaro MD 05/05/22 documented as of this encounter
--- OUTSIDE RECORDS SUMMARY | 2024-01-20 15:12 | XMS_ITS | Encounter Summary ---
Author Organization [facility] Address [address] [place] [address] Care Team Providers Care Geothermal System Installer Name Role Phone Lisa Mcgregor [facility] Primary Care Provider [phone] Md MICHAELA Alfaro Unavailable Unavailable Encounter Details Date Type Department Care Team (Late st Contact Info) Description 12/13/2023 8:45 EDT Anesthesia Event [facility] Reproductive Medicine & Infertility Center - [facility] [address] [place], [place] [phone] Amparo Rivera MD [address] [phone] Harriet Santana CRNA [address] [phone] Anesthesia Record Procedure Summary Procedure [...] mg documented in this encounter Care Teams Geothermal System Installer Relationship Specialty Start Date End Date Lisa Mcgregor FNP 26 [facility] [address] [place] [phone] PCP - General 05/05/22 Md Alfaro MD 05/05/22 documented as of this encounter
--- OUTSIDE RECORDS SUMMARY | 2024-01-20 15:12 | XMS_ITS | Encounter Summary ---
Author Organization [facility] Address [address] [place] [address] Care Team Providers Care Agricultural Equipment Sales Manager Name Role Phone Lisa Mcgregor Primary Care Provider [phone] Md MICHAELA Alfaro Unavailable Unavailable Encounter Details Date Type Department Care Team (Late st Contact Info) Description 12/20/2023 Documentation Visit [facility] Reproductive Medicine & Infertility Center - [facility] [address] [place] [address] Lucrecia Land MD 111 [facility], [address] [place] [phone] Social History Tobacco Use Types Packs/Day Years [...] on filedocumented in this encounter Care Teams Agricultural Equipment Sales Manager Relationship Specialty Start Date End Date Lisa Mcgregor FNP [address] [phone] PCP - General 05/05/22 Md Alfaro MD 05/05/22 documented as of this encounter
--- OUTSIDE RECORDS SUMMARY | 2024-01-20 15:12 | XMS_ITS | Encounter Summary ---
Author Organization [facility] Address [address] [place] [address] Care Team Providers Care Nursing Education Consultant Name Role Phone BalbirRaniy [facility] Primary Care Provider [phone] Md MICHAELA Alfaro Unavailable Unavailable Reason for Visit * Reason Onset Date Comments Results 12/14/2023 Encounter Details Date Type Department Care Team (Late st Contact Info) Description 12/14/2023 Telephone [facility] Reproductive Medicine & Infertility Center - [facility] [address] [place], [place] [phone] Lucrecia Land MD 111 [facility], [address] [place] [address] Results Social History Tobacco Use [...] = 14 11x MII ? ICSI 3x OK 1x E/ZP Day 1: 9x 2PN 2x 3PN Let her know I sent prescription for pain medication and to please call back with worsening/new symptoms. Lucrecia Land MD Reproductive Endocrinology and Infertility Fellow (PGY7) [facility] documented in this encounter Plan of Treatment Not on file documented as of this encounter Visit Diagnoses Not on filedocumented in this encounter Care Teams Nursing Education Consultant Relationship Specialty Start Date End Date Lisa Mcgregor FNP [address] [place] [phone] PCP - General 05/05/22 Md Alfaro MD 05/05/22 documented as of this encounter
--- OUTSIDE RECORDS SUMMARY | 2024-01-20 15:12 | XMS_ITS | Encounter Summary ---
Author Organization [facility] Address [address] [place] [address] Care Team Providers Care Process Development Technician Name Role Phone BalbirLisa [facility] Primary Care Provider [phone] Md MICHAELA Alfaro Unavailable Unavailable Encounter Details Date Type Department Care Team (Late st Contact Info) Description 12/03/2023 Documentation Visit [facility] Reproductive Medicine & Infertility Center - [address] [address] Lucrecia Land MD 111 [facility], Level 4 [place] [phone] Social History Tobacco Use Types Packs/Day Years [...] MD Reproductive Endocrinology and Infertility Fellow (PGY7) [facility] documented in this encounter Plan of Treatment Not on file documented as of this encounter Visit Diagnoses Not on filedocumented in this encounter Care Teams Process Development Technician Relationship Specialty Start Date End Date Lisa Mcgregor FNP [address] [place] [phone] PCP - General 05/05/22 Md Alfaro MD 05/05/22 documented as of this encounter
--- OUTSIDE RECORDS SUMMARY | 2024-01-20 15:12 | XMS_ITS | Encounter Summary ---
Author Organization [facility] Address [address] [place] [address] Care Team Providers Care Care Rep Name Role Phone Lisa Mcgregor [facility] Primary Care Provider [phone] Md MICHAELA Alfaro Unavailable Unavailable Reason for Referral * LAYUP WORKER (Routine/Next Available) - Authorization Not Required Specialty Diagnoses / Procedures Referred By Contac t Referred To Contact Diagnoses Encounter for assisted reproductive fertility cycle Procedures US BIOFUELS PRODUCTION ASSOCIATE EXAM ([facility]IANNA ONLY) Lucrecia Land MD Phone: tel: fax: Referral ID Status Reason Start Date Expiration Date Visits Requested Visits Authorized [id number] Authorization Not Required 11/01/2023 4 4 Reason for Visit * LAYUP WORKER (Routine/Next Available) - Authorization Not Required Specialty Diagnoses / Procedures Referred By Contac t Referred To Contact Diagnoses Encounter for assisted reproductive fertility cycle Procedures US BIOFUELS PRODUCTION ASSOCIATE EXAM (KIANNA ONLY) Lucrecia Land MD Phone: tel: fax: Referral ID Status Reason Start Date Expiration Date Visits Requested Visits Authorized [id number] Authorization Not Required 11/01/2023 4 4 Encounter Details Date Type Department Care Team (Latest Contact Info) Description 12/09/2023 7:35 EDT - 12/09/2023 23:59 EDT Hospital Encounter [facility] OBGYN Services - [address] [address] Encounter for assisted reproductive fertility cycle Discharge [...] into the skin daily. 4 Each 11/02/2023 4 ganirelix (ANTAGON) 250 mcg/0.5 mL syringe Inject 0.5 mL into the skin daily. 8 Each 11/02/2023 4 norgestimate-ethin yl estradioL (ORTHO-CYCLEN) 0.25-35 mg-mcg per tablet Take 1 Tablet by mouth daily. Take active tabs continuously. Discard inactive tabs (4th row of pills) and begin new pack immediately 56 Tablet 10/22/2023 4 progesterone in oil 50 mg/mL injection Inject 1 mL into the muscle daily. 3 Each 1 11/02/2023 4 documented as of this encounter Discharge Disposition Disposition Code Departure Means Destination Home or Self Care documented in this encounter Plan of Treatment Not on file documented as of this encounter Procedures Procedure Name Priority Date/Time Associated Diagnosis Comments US BIOFUELS PRODUCTION ASSOCIATE EXAM (KIANNA ONLY) Routine 12/09/2023 7:43 EDT Encounter for assisted reproductive fertility cycle documented in this encounter Results * US BIOFUELS PRODUCTION ASSOCIATE EXAM (KIANNA ONLY) (12/09/2023 7:43 EDT) Anatomical [...] fluid Impression ========= USE (IVF Follicular) - 12344 1. Anteverted uterus with trilaminar endometrium 2. [...] fluid Impression ========= USE (IVF Follicular) - 71764 1. Anteverted uterus with trilaminar endometrium 2. Stimulated ovaries bilaterally with folliculogenesis as measuredabove 3. No significant free fluid Follow-up ======== Labs today, plan per KIANNA team Comment ======== Ultrasound findings discussed w/patient. Z31.83 encounter for assisted reproductive fertility procedure cycle DATE OF SERVICE: 12/09/[address] [facility] Lucrecia Land MD IMG US OB ORDERABLES Fin al Result documented in this encounter Visit Diagnoses Diagnosis Encounter for assisted reproductive fertility cycle Encounter for assisted reproductive fertility procedure cycle documented in this encounter Care Teams Care Rep Relationship Specialty Start Date End Date Lisa Mcgregor FNP [address] [phone] PCP - General 05/05/22 Md Angelina, MD 05/05/22 documented as of this encounter
--- OUTSIDE RECORDS SUMMARY | 2024-01-20 15:12 | XMS_ITS | Encounter Summary ---
Author Organization [facility] Address [address] [place] [address] Care Team Providers Care Television Production Technician Name Role Phone BalbirLisa [facility] Primary Care Provider [phone] Md MICHAELA Alfaro Unavailable Unavailable Encounter Details Date Type Department Care Team (Late st Contact Info) Description 12/05/2023 7:45 EDT Phlebotomy Only [facility] ED Center 2 Phlebotomy [address] [place] [address] Molecular Modeler, Acc Phlebotomy Encounter for assisted reproductive fertility [...] 0.7 See Table ng/mL 12/05/2023 9:02 EDT [facility] Comment: Female Reference [...] Unknown 12/05/2023 7:54 EDT 12/05/2023 8:14 EDT us Layla Reid MD CHEMISTRY & BLOOD GAS ORD ERABLES Final Result [facility] [address] [place] [address] * ESTRADIOL, ADULTS (12/05/2023 7:54 EDT) [facility] Signature Estradiol 1,060 See Note pg/mL 12/05/2023 9:02 EDT [facility] Comment: NOTE: FEMALE [...] EDT Sheila Robb MD CHEMISTRY & BLOOD GAS ORDER AIDA Final Result [facility] [address] [place] [address] documented in this encounter Visit Diagnoses Diagnosis Encounter for assisted reproductive fertility procedure cycle Encounter for assisted reproductive fertility cycle Encounter for assisted reproductive fertility procedure cycle documented in this encounter Care Teams Television Production Technician Relationship Specialty Start Date End Date Lisa Mcgregor FNP [address] [place] [address] [address] [place] [phone] PCP - General 05/05/22 Md Alfaro MD 05/05/22 documented as of this encounter
--- OUTSIDE RECORDS SUMMARY | 2024-01-20 15:12 | XMS_ITS | Encounter Summary ---
Author Organization [facility] Address [address] [place] [address] Care Team Providers Care Elevator Worker Name Role Phone BalbirLisa [facility] Primary Care Provider [phone] Md MICHAELA Alfaro Unavailable Unavailable Encounter Details Date Type Department Care Team (Late st Contact Info) Description 12/23/2023 Documentation Visit [facility] Reproductive Medicine & Infertility Center - [address] [address] Lucrecia Land MD 111 [facility], [address] [place] [phone] Social History Tobacco Use Types Packs/Day Years [...] Notes * Lucrecia Land MD - 12/23/2023 1047 EDT Luteal support labs, recheck after low [...] MD Reproductive Endocrinology and Infertility Fellow (PGY7) [facility] documented in this encounter Plan of Treatment Not on file documented as of this encounter Visit Diagnoses Not on filedocumented in this encounter Care Teams Elevator Worker Relationship Specialty Start Date End Date Lisa Mcgregor FNP [address] [place] [phone] PCP - General 05/05/22 Md Alfaro MD 05/05/22 documented as of this encounter
--- OUTSIDE RECORDS SUMMARY | 2024-01-20 15:12 | XMS_ITS | Encounter Summary ---
Author Organization [facility] Address [address] [place] [address] Care Team Providers Care Director Of Event Management Name Role Phone BalbirLisa [facility] Primary Care Provider [phone] Md MICHAELA Alfaro Unavailable Unavailable Encounter Details Date Type Department Care Team (Late st Contact Info) Description 12/29/2023 Orders Only [facility] Reproductive Medicine & Infertility Center - [facility] [address] [place] [address] Aleisha Che, CHAPARRO Encounter for in vitro [...] on file documented as of this encounter Results * (ABNORMAL) QUANT BETA HCG, (01/16/2024 9:09 EST) Beta HCG Quant, 71(H) <5 mIU/mL 01/16/2024 9:50 EST [facility] Comment: NOTE: : Negative: Less than 5mIU/mL Indeterminant: Between 5 and 25 mIU/mL, recommend repeat testing in 48 hours Positive: Greater than 25 mIU/mL The results of this assay can be falsely lowered due to the consumption of Biotin. Blood VENOUS BLOOD / Unknown Venipuncture / Unknown 01/16/2024 9:09 EST 01/16/2024 9:15 EST Layla Reid MD CHEMISTRY & BLOOD GAS ORD ERABLES Final Result Performing Organization Address [facility] de Phone Number [facility] [address] [place] [address] * (ABNORMAL) QUANT BETA HCG, (12/31/2023 9:21 EDT) Beta HCG Quant, 89(H) <5 mIU/mL 12/31/2023 10:27 EDT [facility] Comment: NOTE: : Negative: [...] & BLOOD GAS ORD ERABLES Final Result Performing Organization Address [facility] Co de Phone Number [facility] [address] [place] [address] documented in this encounter Visit Diagnoses Diagnosis Encounter for in vitro fertilization- Primary Encounter for assisted reproductive fertility procedure cycle documented in this encounter Care Teams Director Of Event Management Relationship Specialty Start Date End Date Lisa Mcgregor FNP [address] [place] [phone] PCP - General 05/05/22 Md Alfaro MD 05/05/22 documented as of this encounter
--- OUTSIDE RECORDS SUMMARY | 2024-01-20 15:12 | XMS_ITS | Encounter Summary ---
Author Organization [facility] Address [address] [place] [address] Care Team Providers Care Botanical Technical Officer Name Role Phone BalbirLisa [facility] Primary Care Provider [phone] Md MICHAELA Alfaro Unavailable Unavailable Reason for Visit * Reason Comments Procedure IVF monitoring Encounter Details Date Type Department Care Team (Late st Contact Info) Description 12/05/2023 9:30 EDT Procedure visit [facility] Reproductive Medicine & Infertility Center - [facility] [address] [place], [place] [id number] Cheryl Fuller MD 111 [facility], [facility] [address] [place] [address] Encounter for assisted reproductive fertility [...] ICSI (TESE sample) Med day 10 Tiny Larry's labs and IVF plan reviewed with attending [...] to 150u Gonal F tomorrow night and [id number] Menopur Continue antagonist Scan and labs on [...] cycle documented in this encounter Care Teams Botanical Technical Officer Relationship Specialty Start Date End Date Lisa Mcgregor FNP [address] [place] [address] [address] [place] [phone] PCP - General 05/05/22 Md Alfaro MD 05/05/22 documented as of this encounter
--- OUTSIDE RECORDS SUMMARY | 2024-01-20 15:12 | XMS_ITS | Encounter Summary ---
Author Organization [facility] Address [address] [place] [address] Care Team Providers Care Agriculture Intern Name Role Phone BalbirLisa [facility] Primary Care Provider [phone] Md MICHAELA Alfaro Unavailable Unavailable Encounter Details Date Type Department Care Team (Late st Contact Info) Description 12/07/2023 Orders Only [facility] Reproductive Medicine & Infertility Center - [facility] [address] [place] [address] Aleisha Che RN Social History Tobacco Use [...] of this encounter Ordered Prescriptions Prescription Sig Dispense Quantity Refills Last Filled Start Date End Date leuprolide (LUPRON) 1 mg/0.2 mL kit Inject [...] documented as of this encounter Care Teams Agriculture Intern Relationship Specialty Start Date End Date Lisa Mcgregor FNP [address] [place] [phone] PCP - General 05/05/22 Md Alfaro MD 05/05/22 documented as of this encounter
--- OUTSIDE RECORDS SUMMARY | 2024-01-20 15:12 | XMS_ITS | Encounter Summary ---
Author Organization [facility] Address [address] [place] [address] Care Team Providers Care Slitter Processed Film Name Role Phone Balbir Lisa [facility] Primary Care Provider [phone] Md MICHAELA Alfaro Unavailable Unavailable Encounter Details Date Type Department Care Team (Latest Contact Info) Description 12/13/2023 7:59 EDT - 12/13/2023 23:59 EDT Hospital Encounter [facility] Reproductive Medicine & Infertility Center - [facility] [address] [place], [place] [address] Discharge Disposition: Home or Self Care Social [...] 3 times daily. 90 Tablet 12/13/2023 4 progesterone in oil 50 mg/mL injection [...] a non-reportable exam. us Layla Reid MD IMG US POC ORDERABLES Fin al Result documented in this encounter Visit Diagnoses Not on filedocumented in this encounter Care Teams Slitter Processed Film Relationship Specialty Start Date End Date Lisa Mcgregor FNP [address] [place] [phone] PCP - General 05/05/22 Md Alfaro MD 05/05/22 documented as of this encounter
--- OUTSIDE RECORDS SUMMARY | 2024-01-20 15:12 | XMS_ITS | Encounter Summary ---
Author Organization [facility] Address [address] [place] [address] Care Team Providers Care Machine Tank Operator Name Role Phone Lisa Mcgregor Primary Care Provider [phone] Md MICHAELA Alfaro Unavailable Unavailable Encounter Details Date Type Department Care Team (Late st Contact Info) Description 12/09/2023 Orders Only [facility] Reproductive Medicine & Infertility Center - [facility] [address] [place] [address] Aleisha Che RN Social History Tobacco Use [...] on filedocumented in this encounter Care Teams Machine Tank Operator Relationship Specialty Start Date End Date Lisa Mcgregor FNP 26 [facility] [address] [place] [address] PCP - General 05/05/22 Md Alfaro MD 05/05/22 documented as of this encounter
--- OUTSIDE RECORDS SUMMARY | 2024-01-20 15:12 | XMS_ITS | Encounter Summary ---
Author Organization [facility] Address [address] [place] [address] Care Team Providers Care Beverage Inspection Machine Tender Name Role Phone BalbirLisa [facility] Primary Care Provider Md MICHAELA Alfaro Unavailable Unavailable Encounter Details Date Type Department Care Team (Late st Contact Info) Description 12/12/2023 7:15 EDT Phlebotomy Only [facility] 2 Phlebotomy [address] [place] [address] Patent Chemist, Acc Phlebotomy Encounter for assisted reproductive fertility [...] 13.5 See Table ng/mL 12/12/2023 8:53 EDT [facility] Comment: Female Reference [...] & BLOOD GAS ORDERAB LES Final Result Performing Organization Address [facility]/ZIP Co de Phone Number [facility] [address] [place] [address] * LH (12/12/2023 7:25 EDT) Luteinizing Hormone 10.5 See Note mIU/mL 12/12/2023 9:39 EDT [facility] Comment: NOTE: Female Reference [...] EDT Aurora Hinton MD CHEMISTRY & BLOOD GAS ORDERAB LES Final Result Performing Organization Address [facility] Co de Phone Number [facility] [address] [place] [address] * ESTRADIOL, ADULTS (12/12/2023 7:25 EDT) Estradiol 6,285 See Note pg/mL 12/12/2023 9:32 EDT [facility] Comment: NOTE: FEMALE [...] & BLOOD GAS ORDERAB LES Final Result [facility] [address] [place] [address] documented in this encounter Visit Diagnoses Diagnosis Encounter for assisted reproductive fertility cycle Encounter for assisted reproductive fertility procedure cycle Encounter for assisted reproductive fertility procedure cycle documented in this encounter Care Teams Beverage Inspection Machine Tender Relationship Specialty Start Date End Date Lisa Mcgregor FNP [address] [place] [address] [address] [place] [address] PCP - General 05/05/22 Md Alfaro MD 05/05/22 documented as of this encounter
--- OUTSIDE RECORDS SUMMARY | 2024-01-20 15:12 | XMS_ITS | Encounter Summary ---
Author Organization [facility] Address [address] [place] [address] Care Team Providers Care Cash Applications Coordinator Name Role Phone Lisa Mcgregor [facility] Primary Care Provider [phone] Md MICHAELA Alfaro Unavailable Unavailable Reason for Referral * PROP AND EFFECTS DESIGNER (Routine/Next Available) - Authorization Not Required Specialty Diagnoses / Procedures Referred By Contac t Referred To Contact Diagnoses Encounter for assisted reproductive fertility cycle Procedures US SHEET METAL HELPER EXAM (KIANNA ONLY) Lucreica Land MD Phone: tel: fax: Referral ID Status Reason Start Date Expiration Date Visits Requested Visits Authorized [id number] Authorization Not Required 11/01/2023 4 4 Reason for Visit * PROP AND EFFECTS DESIGNER (Routine/Next Available) - Authorization Not Required Specialty Diagnoses / Procedures Referred By Contac t Referred To Contact Diagnoses Encounter for assisted reproductive fertility cycle Procedures US SHEET METAL HELPER EXAM (KIANNA ONLY) Lucrecia Land MD Phone: tel: fax: Referral ID Status Reason Start Date Expiration Date Visits Requested Visits Authorized [id number] Authorization Not Required 11/01/2023 4 4 Encounter Details Date Type Department Care Team (Latest Contact Info) Description 12/07/2023 7:25 EDT - 12/07/2023 23:59 EDT Hospital Encounter [facility] OBGYN Services - [address] [address] Encounter for assisted reproductive fertility cycle Discharge [...] the skin daily. 8 Each 11/02/2023 4 menotropins (MENOPUR) 75 unit solution for subcutaneous injection Inject 150 Units into the skin daily. 15 Each 11/02/2023 4 norgestimate-ethin yl estradioL (ORTHO-CYCLEN) [...] Name Priority Date/Time Associated Diagnosis Comments US SHEET METAL HELPER EXAM (KIANNA ONLY) Routine 12/07/2023 7:30 EDT Encounter for assisted reproductive fertility cycle documented in this encounter Results * US SHEET METAL HELPER EXAM (KIANNA ONLY) (12/07/2023 7:30 EDT) Anatomical [...] trace Impression ========= USE (IVF Follicular) - 74659 1. Anteverted uterus with trilaminar endometrium 2. [...] trace Impression ========= USE (IVF Follicular) - 28164 1. Anteverted uterus with trilaminar endometrium 2. [...] cycle documented in this encounter Care Teams Cash Applications Coordinator Relationship Specialty Start Date End Date Lisa Mcgregor FNP [address] [place] [phone] PCP - General 05/05/22 Md Alfaro MD 05/05/22 documented as of this encounter
--- OUTSIDE RECORDS SUMMARY | 2024-01-20 15:12 | XMS_ITS | Encounter Summary ---
Author Organization [facility] Address [address] [place] [address] Care Team Providers Care Floor Sweeper Name Role Phone BalbirLisa [facility] Primary Care Provider [phone] Md MICHAELA Alfaro Unavailable Unavailable Reason for Visit * Reason Comments Procedure IVF monitoring Encounter Details Date Type Department Care Team (Late st Contact Info) Description 12/07/2023 8:00 EDT Procedure visit [facility] Reproductive Medicine & Infertility Center - [facility] [address] [place], [place] [id number] Aurora Hinton MD 111 [facility], [facility] [address] [place] [address] Encounter for assisted reproductive fertility [...] Endocrinology and Infertility Fellow (PGY7) [facility] Attestation statement: I discussed the patient [...] 457 See Note pg/mL 12/16/2023 10:55 EDT [facility] Comment: NOTE: FEMALE [...] & BLOOD GAS ORDERAB LES Final Result [facility] [address] [place] [address] * ESTRADIOL, ADULTS (12/12/2023 7:25 EDT) Pathologist [facility] Estradiol 6,285 See Note pg/mL 12/12/2023 9:32 EDT [facility] Comment: NOTE: FEMALE [...] Result Performing Organization Address [facility] de Phone Number [facility] [address] [place] [address] * ESTRADIOL, ADULTS (12/11/2023 8:12 EDT) Estradiol 4,364 See Note pg/mL 12/11/2023 11:00 EDT [facility] Comment: NOTE: FEMALE [...] ORDERAB LES Final Result Performing Organization Address [facility] de Phone Number [facility] [address] [place] [address] * PROGESTERONE (12/07/2023 8:07 EDT) Progesterone 0.8 See Table ng/mL 12/07/2023 9:22 EDT [facility] Comment: Female Reference [...] Unknown 12/07/2023 8:07 EDT 12/07/2023 8:29 EDT us Layla Reid MD CHEMISTRY & BLOOD GAS ORD ERABLES Final Result [facility] [address] [place] [address] * ESTRADIOL, ADULTS (12/07/2023 8:07 EDT) Estradiol 2,079 See Note pg/mL 12/07/2023 9:22 EDT [facility] Comment: NOTE: FEMALE [...] Unknown 12/07/2023 8:07 EDT 12/07/2023 8:29 EDT us Aurora Hinton MD CHEMISTRY & BLOOD GAS ORDERAB LES Final Result [facility] [address] [place] [address] documented in this encounter Visit Diagnoses Diagnosis Encounter for assisted reproductive fertility cycle- Primary Encounter for assisted reproductive fertility procedure cycle documented in this encounter Care Teams Floor Sweeper Relationship Specialty Start Date End Date Lisa Mcgregor FNP [address] [place] [phone] PCP - General 05/05/22 Md Alfaro MD 05/05/22 documented as of this encounter
--- OUTSIDE RECORDS SUMMARY | 2024-01-20 15:12 | XMS_ITS | Encounter Summary ---
Author Organization [facility] Address [address] [place] [address] Care Team Providers Care Teacher Theater Arts Name Role Phone BalbirLisa [facility] Primary Care Provider [phone] Md MICHAELA Alfaro Unavailable Unavailable Encounter Details Date Type Department Care Team (Late st Contact Info) Description 12/10/2023 Orders Only [facility] Reproductive Medicine & Infertility Center - [facility] [address] [place] [address] Aleisha Che RN Social History Tobacco Use [...] Refills Last Filled Start Date End Date ganirelix (ANTAGON) 250 mcg/0.5 mL syringe Inject [...] documented as of this encounter Care Teams Teacher Theater Arts Relationship Specialty Start Date End Date Lisa Mcgregor FNP 26 [facility] [address] [place] [phone] PCP - General 05/05/22 Md Alfaro MD 05/05/22 documented as of this encounter
--- OUTSIDE RECORDS SUMMARY | 2024-01-20 15:12 | XMS_ITS | Encounter Summary ---
Author Organization [facility] Address [address] [place] [address] Care Team Providers Care Lumber Piler Operator Name Role Phone BalbirLisa [facility] Primary Care Provider [phone] Md MICHAELA Alfaro Unavailable Unavailable Reason for Visit * Reason Comments Procedure IVF monitoring Encounter Details Date Type Department Care Team (Late st Contact Info) Description 12/09/2023 8:00 EDT Procedure visit [facility] Center Reproductive Medicine & Infertility Center - [facility] [address] [place], [place] [phone] Sheila Robb MD 111 [facility], Level [address] [place] [address] Encounter for assisted reproductive fertility [...] Refills Last Filled Start Date End Date menotropins (MENOPUR) 75 unit solution for subcutaneous injection Inject 150 Units into the skin daily. 5 Each 12/09/2023 documented in this encounter Progress Notes * Lucrecia Land MD - 12/09/2023 0800 EDT IVF Plan Note Cycle type: Antag, ICSI (TESE sample) Med day 12 on Tiny Juarez's US, labs and IVF plan [...] and Infertility Fellow (PGY7) [facility] * Sheila Robb MD - 12/09/2023 [...] documented as of this encounter Care Teams Lumber Piler Operator Relationship Specialty Start Date End Date Lisa Mcgregor FNP 26 [facility] [address] [place] [phone] PCP - General 05/05/22 Md Alfaro MD 05/05/22 documented as of this encounter
--- OUTSIDE RECORDS SUMMARY | 2024-01-20 15:12 | XMS_ITS | Encounter Summary ---
Author Organization [facility] Address [address] [place] [address] Care Team Providers Care Match Maker Name Role Phone BalbirLisa [facility] Primary Care Provider Md MICHAELA Alfaro Unavailable Unavailable Encounter Details Date Type Department Care Team (Late st Contact Info) Description 12/24/2023 Orders Only [facility] Reproductive Medicine & Infertility Center - [facility] [address] [place] [address] Aleisha Che, [place]O Encounter for in vitro [...] <5 mIU/mL 12/27/2023 10:17 EDT [facility] Comment: NOTE: : Negative: Less than 5mIU/mL Indeterminant: Between 5 and 25 mIU/mL, recommend repeat testing in 48 hours Positive: Greater than 25 mIU/mL The results of this assay can be falsely lowered due to the consumption of Biotin. Blood VENOUS BLOOD / Unknown Venipuncture / Unknown 12/27/2023 9:04 EDT 12/27/2023 9:33 EDT us Layla Reid MD CHEMISTRY & BLOOD GAS ORD ERABLES Final Result [facility] [address] [place] [address] documented in this encounter Visit Diagnoses Diagnosis Encounter for in vitro fertilization- Primary Encounter for assisted reproductive fertility procedure cycle documented in this encounter Care Teams Match Maker Relationship Specialty Start Date End Date Lisa Mcgregor FNP 26 [facility] [address] [place] [phone] PCP - General 05/05/22 Md Alfaro MD 05/05/22 documented as of this encounter
--- OUTSIDE RECORDS SUMMARY | 2024-01-20 15:12 | XMS_ITS | Encounter Summary ---
Author Organization [facility] Address [address] [place] [address] Care Team Providers Care News Anchor Name Role Phone BalbirLisa [facility] Primary Care Provider [phone] Md MICHAELA Alfaro Unavailable Unavailable Encounter Details Date Type Department Care Team (Late st Contact Info) Description 11/29/2023 8:45 EDT Phlebotomy Only [facility] 2 Phlebotomy [address] [place] [address] Glass Bead Maker, Acc Phlebotomy Encounter for assisted reproductive fertility [...] 31 See Note pg/mL 11/29/2023 10:[address] [facility] Comment: NOTE: FEMALE REFERENCE [...] & BLOOD GAS ORDER AIDA Final Result [facility] [address] [place] [address] documented in this encounter Visit Diagnoses Diagnosis Encounter for assisted reproductive fertility procedure cycle documented in this encounter Care Teams News Anchor Relationship Specialty Start Date End Date Lisa Mcgregor FNP 26 [facility] [address] [place] [phone] PCP - General 05/05/22 Md Alfaro MD 05/05/22 documented as of this encounter
--- OUTSIDE RECORDS SUMMARY | 2024-01-20 15:12 | XMS_ITS | Encounter Summary ---
Author Organization [facility] Address [address] [place] [address] Care Team Providers Care Coating Mixer Name Role Phone BalbirLisa [facility] Primary Care Provider [phone] Md MICHAELA Alfaro Unavailable Unavailable Encounter Details Date Type Department Care Team (Late st Contact Info) Description 12/12/2023 Documentation Visit [facility] Reproductive Medicine & Infertility Center - [facility] [address] [place] [address] Lucrecia Land MD 111 [facility], [address] [place] [phone] Social History Tobacco Use Types Packs/Day Years [...] on filedocumented in this encounter Care Teams Coating Mixer Relationship Specialty Start Date End Date Lisa Mcgregor FNP [address] [place] [phone] PCP - General 05/05/22 Md Alfaro MD 05/05/22 documented as of this encounter
--- OUTSIDE RECORDS SUMMARY | 2024-01-20 15:12 | XMS_ITS | Encounter Summary ---
Author Organization [facility] Address [address] [place] [address] Care Team Providers Care Student Officer Name Role Phone BalbirLisa [facility] Primary Care Provider [phone] Md MICHAELA Alfaro Unavailable Unavailable Encounter Details Date Type Department Care Team (Late st Contact Info) Description 12/03/2023 8:45 EDT Phlebotomy Only [facility] 2 Phlebotomy [address] [place] [address] Criminal Defense Lawyer, Acc Phlebotomy Encounter for assisted reproductive fertility [...] 392 See Note pg/mL 12/03/2023 10:07 EDT [facility] Comment: NOTE: FEMALE [...] & BLOOD GAS ORDER AIDA Final Result [facility] [address] [place] [address] documented in this encounter Visit Diagnoses Diagnosis Encounter for assisted reproductive fertility procedure cycle documented in this encounter Care Teams Student Officer Relationship Specialty Start Date End Date Lisa Mcgregor FNP 26 [facility] [address] [place] [phone] PCP - General 05/05/22 Md Alfaro MD 05/05/22 documented as of this encounter
--- OUTSIDE RECORDS SUMMARY | 2024-01-20 15:12 | XMS_ITS | Encounter Summary ---
Author Organization [facility] Address [address] [place] [address] Care Team Providers Care Apartment Maintenance Name Role Phone BalbirLisa [facility] Primary Care Provider [phone] Md MICHAELA Alfaro Unavailable Unavailable Encounter Details Date Type Department Care Team (Late st Contact Info) Description 12/16/2023 9:[address] [facility] 2 Phlebotomy [address] [place] [address] Account General Manager, Acc Phlebotomy Encounter for assisted reproductive [...] 36.0 See Table ng/mL 12/16/2023 10:55 EDT [facility] Comment: Female Reference [...] ORD ERABLES Final Result Performing Organization Address [facility] Co de Phone Number [facility] [address] [place], [place] [phone] * ESTRADIOL, ADULTS (12/16/2023 9:37 EDT) Estradiol 457 See Note pg/mL 12/16/2023 10:55 EDT [facility] Comment: NOTE: FEMALE [...] ORDERAB LES Final Result Performing Organization Address [facility] Co de Phone Number [facility] [address] [place] [address] documented in this encounter Visit Diagnoses Diagnosis Encounter for assisted reproductive fertility cycle Encounter for assisted reproductive fertility procedure cycle Encounter for assisted reproductive fertility procedure cycle [Z31.83] Encounter for assisted reproductive fertility procedure cycle documented in this encounter Care Teams Apartment Maintenance Relationship Specialty Start Date End Date Lisa Mcgregor FNP 26 [facility] [address] [place] [phone] PCP - General 05/05/22 Md Alfaro MD 05/05/22 documented as of this encounter
--- OUTSIDE RECORDS SUMMARY | 2024-01-20 15:12 | XMS_ITS | Encounter Summary ---
Author Organization [facility] Address [address] [place] [address] Care Team Providers Care Auditor/Quality Name Role Phone BalbirLisa [facility] Primary Care Provider [phone] Md MICHAELA Alfaro Unavailable Unavailable Encounter Details Date Type Department Care Team (Late st Contact Info) Description 12/01/2023 Documentation Visit [facility] Reproductive Medicine & Infertility Center - [address] [address] Lucrecia Land MD 111 [facility], [address] [place] [phone] Social History Tobacco Use Types Packs/Day Years [...] on filedocumented in this encounter Care Teams Auditor/Quality Relationship Specialty Start Date End Date Lisa Mcgregor FNP [address] [place] [phone] PCP - General 05/05/22 Md Alfaro MD 05/05/22 documented as of this encounter
--- OUTSIDE RECORDS SUMMARY | 2024-01-20 15:12 | XMS_ITS | Encounter Summary ---
Author Organization [facility] Address [address] [place] [address] Care Team Providers Care Yarn Mercerizer Operator Name Role Phone Lisa Mcgregor [facility] Primary Care Provider [phone] Md MICHAELA Alfaro Unavailable Unavailable Encounter Details Date Type Department Care Team (Late st Contact Info) Description 12/14/2023 Orders Only [facility] Reproductive Medicine & Infertility Center - [facility] [address] [place] [address] Lucrecia Land MD [address] [facility], Level 4 [place] [phone] Female infertility (Primary Dx) Social History Tobacco [...] Refills Last Filled Start Date End Date oxyCODONE (ROXICODONE) 5 mg immediate release tablet [...] encounter Results * PROGESTERONE (12/20/2023 9:33 EDT) [facility] Progesterone 58.6 See Table ng/mL 12/20/2023 13:18 EDT [facility] [...] ORD ERABLES Final Result Performing Organization Address [facility] de Phone Number [facility] [address] [place] [address] * ESTRADIOL, ADULTS (12/20/2023 9:33 EDT) [facility] Estradiol 188 See Note pg/mL 12/20/2023 11:11 EDT [facility] [...] Unknown 12/20/2023 9:33 EDT 12/20/2023 9:52 EDT us Layla Reid MD CHEMISTRY & BLOOD GAS ORD ERABLES Final Result Performing Organization Address [facility] de Phone Number [facility] [address] [place] [address] * QUANT BETA HCG, (12/20/2023 9:33 EDT) [facility] Signature Beta HCG Quant, <5 <5 mIU/mL 12/20/2023 10:38 EDT [facility] Comment: NOTE: : Negative: Less than 5mIU/mL Indeterminant: Between 5 and 25 mIU/mL, recommend repeat testing in 48 hours Positive: Greater than 25 mIU/mL The results of this assay can be falsely lowered due to the consumption of Biotin. Blood VENOUS BLOOD / Unknown Venipuncture / Unknown 12/20/2023 9:33 EDT 12/20/2023 9:52 EDT us Layla Reid MD CHEMISTRY & BLOOD GAS ORD ERABLES Final Result [facility] [address] [place], [place] [phone] documented in this encounter Visit Diagnoses Diagnosis Female infertility- Primary Female infertility of unspecified origin documented in this encounter Care Teams Yarn Mercerizer Operator Relationship Specialty Start Date End Date Lisa Mcgregor FNP [address] [place] [address] [place] [phone] PCP - General 05/05/22 Md Alfaro MD 05/05/22 documented as of this encounter
--- OUTSIDE RECORDS SUMMARY | 2024-01-20 15:12 | XMS_ITS | Encounter Summary ---
Author Organization [facility] Address [address] [place] [address] Care Team Providers Care Mail Distributor Name Role Phone BalbirLisa [facility] Primary Care Provider [phone] Md MICHAELA Alfaro Unavailable Unavailable Encounter Details Date Type Department Care Team (Late st Contact Info) Description 12/29/2023 9:00 EDT Phlebotomy Only [facility] ED Center 2 Phlebotomy [address] [place] [address] Catalogue Compiler, Acc Phlebotomy Encounter for in vitro fertilization [...] Quant, 38(H) <5 mIU/mL 12/29/2023 10:31 EDT [facility] Comment: NOTE: : Negative: Less than 5mIU/mL Indeterminant: Between 5 and 25 mIU/mL, recommend repeat testing in 48 hours Positive: Greater than 25 mIU/mL The results of this assay can be falsely lowered due to the consumption of Biotin. Blood VENOUS BLOOD / Unknown Venipuncture / Unknown 12/29/2023 9:15 EDT 12/29/2023 9:43 EDT us Layla Reid MD CHEMISTRY & BLOOD GAS ORD ERABLES Final Result [facility] [address] [place] [address] documented in this encounter Visit Diagnoses Diagnosis Encounter for in vitro fertilization Encounter for assisted reproductive fertility procedure cycle documented in this encounter Care Teams Mail Distributor Relationship Specialty Start Date End Date Lisa Mcgregor FNP [address] [phone] PCP - General 05/05/22 Md Alfaro MD 05/05/22 documented as of this encounter
--- OUTSIDE RECORDS SUMMARY | 2024-01-20 15:12 | XMS_ITS | Encounter Summary ---
Author Organization [facility] Address [address] [place] [address] Care Team Providers Care Finishing Machine Tender Name Role Phone BalbirLisa [facility] Primary Care Provider [phone] Md MICHAELA Alfaro Unavailable Unavailable Encounter Details Date Type Department Care Team (Late st Contact Info) Description 12/27/2023 8:45 EDT Phlebotomy Only [facility] ED Center 2 Phlebotomy [address] [place] [address] Chief Marketing Officer, Acc Phlebotomy Encounter for in vitro fertilization [...] Quant, 18(H) <5 mIU/mL 12/27/2023 10:17 EDT [facility] Comment: NOTE: : Negative: [...] & BLOOD GAS ORD ERABLES Final Result [facility] [address] [place] [address] documented in this encounter Visit Diagnoses Diagnosis Encounter for in vitro fertilization Encounter for assisted reproductive fertility procedure cycle documented in this encounter Care Teams Finishing Machine Tender Relationship Specialty Start Date End Date Lisa Mcgregor FNP 26 [facility] [address] [place] [phone] PCP - General 05/05/22 Md Alfaro MD 05/05/22 documented as of this encounter
--- OUTSIDE RECORDS SUMMARY | 2024-01-20 15:12 | XMS_ITS | Encounter Summary ---
Author Organization [facility] Address [address] [place] [address] Care Team Providers Care Hoof And Shoe Inspector Name Role Phone Lisa Mcgregor [facility] Primary Care Provider [phone] Md MICHAELA Alfaro Unavailable Unavailable Reason for Referral * Radiology Services (Routine/Next Available) - New Request Specialty Diagnoses / Procedures [facility] Referred To Contact Diagnoses Encounter for assisted reproductive fertility procedure cycle Procedures POC IVF/KIANNA US GUIDANCE Layla Reid MD [address] [place] [phone] Phone: tel: fax: Referral ID Status Reason Start Date Expiration Date V isits Requested Visits Authorized [id number] New Request 12/16/2023 1 1 Encounter Details Date Type Department Care Team (Late st Contact Info) Description 12/16/2023 11:00 EDT - 12/16/2023 23:59 EDT Hospital Encounter [facility] Reproductive Medicine & Infertility Center - [address] [address] Layla Reid MD [address] [place] [phone] Encounter for assisted reproductive fertility procedure cycle [...] 3 times daily. 90 Tablet 12/13/2023 4 oxyCODONE (ROXICODONE) 5 mg immediate release tablet Take 1 Tablet by mouth every 4 hours as needed for up to 5 doses for Pain. Daily Max: 30 mg 5 Tablet 12/14/2023 4 progesterone in oil 50 mg/mL injection [...] MD PGY7 Fellow Reproductive Endocrinology & Infertility [facility] 12/16/2023 Attestation statement: I was present during [...] cycle documented in this encounter Care Teams Hoof And Shoe Inspector Relationship Specialty Start Date End Date Lisa Mcgregor FNP [address] [facility] [address] [place] [phone] PCP - General 05/05/22 Md Alfaro MD 05/05/22 documented as of this encounter
--- OUTSIDE RECORDS SUMMARY | 2024-01-20 15:12 | XMS_ITS | Encounter Summary ---
Author Organization [facility] Address [address] [place] [address] Care Team Providers Care Veneer Clipper Helper Name Role Phone Lisa Mcgregor [facility] Primary Care Provider [phone] Md MICHAELA Alfaro Unavailable Unavailable Reason for Visit * Reason Onset Date Comments Coordination Of Care 11/29/2023 Encounter Details Date Type Department Care Team (Late st Contact Info) Description 11/29/2023 Telephone [facility] Reproductive Medicine & Infertility Center - [facility] [address] [place] [address] Olena Tucker RN [address] [place] [address] Coordination Of Care Social History Tobacco Use [...] Encounter - Olena Tucker RN - 11/29/2023 7869 EDT Tiny called back. Reviewed that she [...] on filedocumented in this encounter Care Teams Veneer Clipper Helper Relationship Specialty Start Date End Date Lisa Mcgregor FNP [address] [place] [phone] PCP - General 05/05/22 Md Alfaro MD 05/05/22 documented as of this encounter
--- OUTSIDE RECORDS SUMMARY | 2024-01-20 15:12 | XMS_ITS | Encounter Summary ---
Author Organization [facility] Address [address] [place] [address] Care Team Providers Care Fast Food Manager Name Role Phone BalbirLisa [facility] Primary Care Provider [phone] Md MICHAELA Alfaro Unavailable Unavailable Encounter Details Date Type Department Care Team (Late st Contact Info) Description 12/23/2023 9:00 EDT Phlebotomy Only [facility] ED Center 2 Phlebotomy [address] [place] [address] Jacquard Twine Polisher Operator, Acc Phlebotomy Female infertility Social History Tobacco Use [...] 27.9 See Table ng/mL 12/23/2023 10:46 EDT [facility] Comment: Female Reference Ranges: PHYSIOLOGICAL [...] & BLOOD GAS OR DERABLES Final Result [facility] [address] [place] [address] * ESTRADIOL, ADULTS (12/23/2023 9:26 EDT) Estradiol 605 See Note pg/mL 12/23/2023 10:43 EDT [facility] Comment: NOTE: FEMALE REFERENCE RANGES: [...] & BLOOD GAS OR DERABLES Final Result [facility] [address] [place] [address] documented in this encounter Visit Diagnoses Diagnosis Female infertility Female infertility of unspecified origin documented in this encounter Care Teams Fast Food Manager Relationship Specialty Start Date End Date Lisa Mcgregor FNP [address] [place] [address] [address] [place] [phone] PCP - General 05/05/22 Md Alfaro MD 05/05/22 documented as of this encounter
--- OUTSIDE RECORDS SUMMARY | 2024-01-20 15:12 | XMS_ITS | Encounter Summary ---
Author Organization [facility] Address [address] [place] [address] Care Team Providers Care Filer Repairer Name Role Phone Lisa Mcgregor [facility] Primary Care Provider Md MICHAELA Alfaro Unavailable Unavailable Reason for Referral * VISUAL BASIC .NET DEVELOPER (Routine/Next Available) - Authorization Not Required Specialty Diagnoses / Procedures Referred By Contac t Referred To Contact Diagnoses Encounter for assisted reproductive fertility cycle Procedures US SURVEY PROJECT MANAGER EXAM (KIANNA ONLY) Lucrecia Land MD Phone: tel: fax: Referral ID Status Reason Start Date Expiration Date Visits Requested Visits Authorized [id number] Authorization Not Required 11/01/2023 4 4 Reason for Visit * VISUAL BASIC .NET DEVELOPER (Routine/Next Available) - Authorization Not Required Specialty Diagnoses / Procedures Referred By Contac t Referred To Contact Diagnoses Encounter for assisted reproductive fertility cycle Procedures US SURVEY PROJECT MANAGER EXAM (KIANNA ONLY) Lucrecia Land MD Phone: tel: fax: Referral ID Status Reason Start Date Expiration Date Visits Requested Visits Authorized [id number] Authorization Not Required 11/01/2023 4 4 Encounter Details Date Type Department Care Team (Latest Contact Info) Description 12/05/2023 8:34 EDT - 12/05/2023 23:59 EDT Hospital Encounter [facility] OBGYN Services - [address] [address] Encounter for assisted reproductive fertility cycle Discharge [...] Name Priority Date/Time Associated Diagnosis Comments US SURVEY PROJECT MANAGER EXAM (KIANNA ONLY) Routine 12/05/2023 8:52 EDT Encounter for assisted reproductive fertility cycle documented in this encounter Results * US SURVEY PROJECT MANAGER EXAM (KIANNA ONLY) (12/05/2023 8:52 EDT) Anatomical [...] DATE OF SERVICE: 12/05/2023 Procedure Note Cheryl uFller MD - 12/05/2023 Indication ======== IVF cycle [...] DATE OF SERVICE: 12/05/2023 Lucrecia Land MD [facility] OB ORDERABLES Fin al Result documented in this encounter Visit Diagnoses Diagnosis Encounter for assisted reproductive fertility cycle Encounter for assisted reproductive fertility procedure cycle documented in this encounter Care Teams Filer Repairer Relationship Specialty Start Date End Date Lisa Mcgregor FNP [address] [phone] PCP - General 05/05/22 Md Alfaro MD 05/05/22 documented as of this encounter
--- OUTSIDE RECORDS SUMMARY | 2024-01-20 15:12 | XMS_ITS | Encounter Summary ---
Author Organization [facility] Address [address] [place] [address] Care Team Providers Care Lead Software Test Engineer Name Role Phone BalbirLisa [facility] Primary Care Provider [phone] Md MICHAELA Alfaro Unavailable Unavailable Encounter Details Date Type Department Care Team (Late st Contact Info) Description 12/13/2023 7:49 EDT - 12/13/2023 7:58 EDT Hospital Encounter [facility] Reproductive Medicine & Infertility Center - [facility] [address] [place], [place] [phone] Layla Reid MD 111 [facility] [address] [place] [phone] Encounter for assisted reproductive fertility [...] the muscle daily. 3 Each 1 11/02/2023 documented as of this encounter Ordered Prescriptions Prescription Sig Dispense Quantity Refills Last Filled Start Date End Date estradioL (ESTRACE) 2 mg tablet Take 1 Tablet by mouth 3 times daily. 90 Tablet 12/13/2023 12/29/2023 documented in this encounter Discharge Disposition Disposition Code Departure Means Destination Home or Self Care documented in this encounter Progress Notes * Aleisha Che, [place] - 12/13/2023 0830 EDT Patient with VSS. [...] lumen catheter Anesthesia: MAC Attending: Dr. Reid Passenger Booking Clerk: Dr. Land Antibiotics: Ancef 2 g IV [...] Land MD Fellow, Reproductive Endocrinology and Infertility [facility] 12/13/2023 / 9:53 Attestation statement: I [...] encounter Results * PROGESTERONE (12/16/2023 9:37 EDT) [facility] Signature Progesterone 36.0 See Table ng/mL [...] Unknown 12/16/2023 9:37 EDT 12/16/2023 10:02 EDT us Layla Reid MD CHEMISTRY & BLOOD GAS ORD ERABLES Final Result [facility] [address] [place] [address] * POC IVF/KIANNA US GUIDANCE (12/13/2023 7:59 EDT) Narrative 12/13/2023 7:59 EDT This is a non-reportable exam. us Layla Reid MD [facility] US POC ORDERABLES Fin al Result documented [...] 30 Minutes, NOW X1, 1 dose, On Wed12/13/23 at 0900, Type of Therapy: Prophylaxis, Suspected [...] 100 mg, intramuscular, DAILY, First dose on 12/13/23 at 0900, Until Discontinued, Routine Given 12/13/2023 [...] 12/13/2023 documented in this encounter Care Teams Lead Software Test Engineer Relationship Specialty Start Date End Date Lisa Mcgregor FNP [address] [place] [phone] PCP - General 05/05/22 Md Alfaro MD 05/05/22 documented as of this encounter
--- OUTSIDE RECORDS SUMMARY | 2024-01-20 15:12 | XMS_ITS | Encounter Summary ---
Author Organization [facility] Address [address] [place] [address] Care Team Providers Care Plug Cutter Name Role Phone BalbirLisa [facility] Primary Care Provider [phone] Md MICHAELA Alfaro Unavailable Unavailable Encounter Details Date Type Department Care Team (Late st Contact Info) Description 12/01/2023 8:45 EDT Phlebotomy Only [facility] ED Center 2 Phlebotomy [address] [place] [address] Galley Cook, Acc Phlebotomy Encounter for assisted reproductive fertility [...] 124 See Note pg/mL 12/01/2023 9:57 EDT [facility] Comment: NOTE: FEMALE REFERENCE RANGES: [...] GAS ORDER AIDA Final Result [facility] [address] [place] [address] documented in this encounter Visit Diagnoses Diagnosis Encounter for assisted reproductive fertility procedure cycle documented in this encounter Care Teams Plug Cutter Relationship Specialty Start Date End Date Lisa Mcgregor FNP 26 [facility] [address] [place] [phone] PCP - General 05/05/22 Md Alfaro MD 05/05/22 documented as of this encounter
--- OUTSIDE RECORDS SUMMARY | 2024-01-20 15:12 | XMS_ITS | Encounter Summary ---
Author Organization [facility] Address [address] [place] [address] Care Team Providers Care Cold Rolling Machine Setter Name Role Phone BalbirLisa [facility] Primary Care Provider [phone] Md MICHAELA Alfaro Unavailable Unavailable Encounter Details Date Type Department Care Team (Late st Contact Info) Description 12/20/2023 9:00 EDT Phlebotomy Only [facility] ED Center 2 Phlebotomy [address] [place] [address] Natural Gas Basis Trader, Acc Phlebotomy Female infertility Social History Tobacco [...] encounter Results * PROGESTERONE (12/20/2023 9:33 EDT) Progesterone 58.6 See Table ng/mL 12/20/2023 13:18 EDT [facility] Comment: Female Reference Ranges: [...] ORD ERABLES Final Result Performing Organization Address City/State/[facility] Co de Phone Number [facility] [address] [place] [address] * ESTRADIOL, ADULTS (12/20/2023 9:33 EDT) [facility] Estradiol 188 See Note pg/mL 12/20/2023 11:11 EDT [facility] Comment: NOTE: FEMALE REFERENCE [...] ORD ERABLES Final Result Performing Organization Address [facility] de Phone Number [facility] [address] [place] [address] * QUANT BETA HCG, (12/20/2023 9:33 EDT) [facility] Beta HCG Quant, <5 <5 mIU/mL 12/20/2023 10:38 EDT [facility] Comment: NOTE: [...] Final Result [facility] [address] [place] [address] documented in this encounter Visit Diagnoses Diagnosis Female infertility Female infertility of unspecified origin documented in this encounter Care Teams Cold Rolling Machine Setter Relationship Specialty Start Date End Date Lisa Mcgregor FNP [address] [place] [phone] PCP - General 05/05/22 Md Alfaro MD 05/05/22 documented as of this encounter
--- OUTSIDE RECORDS SUMMARY | 2024-01-20 15:12 | XMS_ITS | Encounter Summary ---
Author Organization [facility] Address [address] [place] [address] Care Team Providers Care Incendiaries Supervisor Name Role Phone Lisa Mcgregor [facility] Primary Care Provider [phone] Md MICHAELA Alfaro Unavailable Unavailable Reason for Referral * FRENCH INSTRUCTOR (Routine/Next Available) - Authorization Not Required Specialty Diagnoses / Procedures Referred By Contac t Referred To Contact Diagnoses Encounter for assisted reproductive fertility cycle Procedures US WHARF LABOURER EXAM (KIANNA ONLY) Lucrecia Land MD Phone: tel: fax: Referral ID Status Reason Start Date Expiration Date Visits Requested Visits Authorized [id number] Authorization Not Required 11/01/2023 4 4 Reason for Visit * FRENCH INSTRUCTOR (Routine/Next Available) - Authorization Not Required Specialty Diagnoses / Procedures Referred By Contac t Referred To Contact Diagnoses Encounter for assisted reproductive fertility cycle Procedures US WHARF LABOURER EXAM (KIANNA ONLY) Lucrecia Land MD Phone: tel: fax: Referral ID Status Reason Start Date Expiration Date Visits Requested Visits Authorized [id number] Authorization Not Required 11/01/2023 4 4 Encounter Details Date Type Department Care Team (Latest Contact Info) Description 12/11/2023 8:38 EDT - 12/11/2023 23:59 EDT Hospital Encounter [facility] OBGYN Services - [address] [address] Encounter for assisted reproductive fertility cycle Discharge [...] fum/folic/dha (-1 ORAL) Take by mouth daily. norgestimate-ethin yl estradioL (ORTHO-CYCLEN) 0.25-35 mg-mcg per [...] Name Priority Date/Time Associated Diagnosis Comments US WHARF LABOURER EXAM (KIANNA ONLY) Routine 12/11/2023 9:36 EDT Encounter for assisted reproductive fertility cycle documented in this encounter Results * US WHARF LABOURER EXAM (KIANNA ONLY) (12/11/2023 9:36 EDT) Anatomical [...] mild Impression ========= USE (IVF Follicular) - 76281 1. Uterus appears normal with trilaminar endometrium. [...] mild Impression ========= USE (IVF Follicular) - 97937 1. Uterus appears normal with trilaminar endometrium. 2. Ovarian follicles appear to be in late folliculogenesis. 3. Small amount of fluid in the cul de sac. Follow-up ======== Labs today, plan per ART team. Comment ======== N97.8 female infertility, other DATE OF SERVICE: 12/11/2023 Lucrecia Land MD [facility] OB ORDERABLES Fin al Result documented in this encounter Visit Diagnoses Diagnosis Encounter for assisted reproductive fertility cycle Encounter for assisted reproductive fertility procedure cycle documented in this encounter Care Teams Incendiaries Supervisor Relationship Specialty Start Date End Date Lisa Mcgregor FNP [address] [place] [phone] PCP - General 05/05/22 Md Alfaro MD 05/05/22 documented as of this encounter
--- OUTSIDE RECORDS SUMMARY | 2024-01-20 15:12 | XMS_ITS | Encounter Summary ---
Author Organization [facility] Address [address] [place] [address] Care Team Providers Care Manager Of Maintenance Name Role Phone BalbirLisa [facility] Primary Care Provider [phone] Md MICHAELA Alfaro Unavailable Unavailable Encounter Details Date Type Department Care Team (Late st Contact Info) Description 12/11/2023 8:15 EDT Phlebotomy Only [facility] ED Center 2 Phlebotomy [address] [place] [address] Spot Machine Operator, Acc Phlebotomy Encounter for assisted reproductive [...] 4,364 See Note pg/mL 12/11/2023 11:00 EDT [facility] Comment: [...] Unknown 12/11/2023 8:12 EDT 12/11/2023 8:22 EDT us Aurora Hinton MD CHEMISTRY & BLOOD GAS ORDERAB LES Final Result [facility] [address] [place] [address] * PROGESTERONE (12/11/2023 8:12 EDT) Progesterone 1.1 See Table ng/mL 12/11/2023 10:35 EDT [facility] Comment: [...] Unknown 12/11/2023 8:12 EDT 12/11/2023 8:22 EDT us Layla Reid MD CHEMISTRY & BLOOD GAS ORD ERABLES Final Result [facility] [address] [place] [address] documented in this encounter Visit Diagnoses Diagnosis Encounter for assisted reproductive fertility cycle Encounter for assisted reproductive fertility procedure cycle documented in this encounter Care Teams Manager Of Maintenance Relationship Specialty Start Date End Date Lisa Mcgregor FNP [address] [place] [address] [address] [place] [phone] PCP - General 05/05/22 Md Alfaro MD 05/05/22 documented as of this encounter
--- OUTSIDE RECORDS SUMMARY | 2024-01-20 15:12 | XMS_ITS | Encounter Summary ---
Author Organization [facility] Address [address] [place] [address] Care Team Providers Care Environmental Health And Safety Manager Name Role Phone BalbirLisa [facility] Primary Care Provider [phone] Md MICHAELA Alfaro Unavailable Unavailable Encounter Details Date Type Department Care Team (Late st Contact Info) Description 12/27/2023 Orders Only [facility] Reproductive Medicine & Infertility Center - [facility] [address] [place] [address] Aleisha Che, CHAAPRRO Encounter for in vitro fertilization (Primary Dx) [...] Quant, 38(H) <5 mIU/mL 12/29/2023 10:31 EDT [facility] Comment: NOTE: : [...] & BLOOD GAS ORD ERABLES Final Result [facility] [address] [place] [address] documented in this encounter Visit Diagnoses Diagnosis Encounter for in vitro fertilization- Primary Encounter for assisted reproductive fertility procedure cycle documented in this encounter Care Teams Environmental Health And Safety Manager Relationship Specialty Start Date End Date Lisa Mcgregor FNP 26 [facility] [address] [place] [phone] PCP - General 05/05/22 Md Alfaro MD 05/05/22 documented as of this encounter
--- OUTSIDE RECORDS SUMMARY | 2024-01-20 15:12 | XMS_ITS | Encounter Summary ---
Author Organization [facility] Address [address] [place] [address] Care Team Providers Care Paint Spray Tender Name Role Phone Lisa Mcgregor [facility] Primary Care Provider [phone] Md MICHAELA Alfaro Unavailable Unavailable Reason for Referral * Radiology Services (Routine/Next Available) - New Request Specialty Diagnoses / Procedures Referred By Jalil quiñones Referred To Contact Diagnoses Encounter for assisted reproductive fertility procedure cycle Procedures POC IVF/KIANNA US GUIDANCE Layla Reid MD [address] [address] Phone: tel: fax: Referral ID Status Reason Start Date Expiration Date V isits Requested Visits Authorized [id number] New Request 12/16/2023 1 1 Reason for Visit * Radiology Services (Routine/Next Available) - New Request Specialty Diagnoses / Procedures Referred By Jalil quiñones Referred To Contact Diagnoses Encounter for assisted reproductive fertility procedure cycle Procedures POC IVF/KIANNA US GUIDANCE Layla Reid MD [address] [address] Phone: tel: fax: Referral ID Status Reason Start Date Expiration Date V isits Requested Visits Authorized [id number] New Request 12/16/2023 1 1 Encounter Details Date Type Department Care Team (Latest Contact Info) Description 12/16/2023 10:50 EDT - 12/16/2023 10:59 EDT Hospital Encounter [facility] Reproductive Medicine [place] [address] Encounter for assisted reproductive fertility procedure cycle [...] cycle documented in this encounter Care Teams Paint Spray Tender Relationship Specialty Start Date End Date Lisa Mcgregor FNP [address] [place] [phone] PCP - General 05/05/22 Md Alfaro MD 05/05/22 documented as of this encounter
--- OUTSIDE RECORDS SUMMARY | 2024-01-20 15:12 | XMS_ITS | Encounter Summary ---
Author Organization [facility] Address [address] [place] [address] Care Team Providers Care Can Tester Name Role Phone BalbirLisa [facility] Primary Care Provider [phone] Md MICHAELA Alfaro Unavailable Unavailable Reason for Visit * Reason Comments Procedure IVF monitoring Encounter Details Date Type Department Care Team (Late st Contact Info) Description 12/11/2023 9:10 EDT Procedure visit [facility] Center Reproductive Medicine & Infertility Center - [facility] [address] [place], [place] [address] Aurora Hinton MD 111 [facility], [facility] [address] [place] [address] Encounter for assisted reproductive fertility [...] (TESE sample) Med day 14 on 03/08 [facility], labs and IVF plan reviewed with attending [...] contacted with the following plan: Lupron trigger at 9:30pm for retrieval Wednesday at 8:30am Lupron labs tomorrow Lucrecia Land MD Reproductive Endocrinology and Infertility Fellow (PGY7) [facility] Attestation statement: I discussed the patient [...] 13.5 See Table ng/mL 12/12/2023 8:53 EDT [facility] Comment: Female Reference Ranges: [...] & BLOOD GAS ORDERAB LES Final Result [facility] [address] [place] [address] * LH (12/12/2023 7:25 EDT) Luteinizing Hormone 10.5 See Note mIU/mL 12/12/2023 9:39 EDT [facility] Comment: NOTE: Female Reference [...] & BLOOD GAS ORDERAB LES Final Result [facility] [address] [place] [address] documented in this encounter Visit Diagnoses Diagnosis Encounter for assisted reproductive fertility procedure cycle- Primary documented in this encounter Care Teams Can Tester Relationship Specialty Start Date End Date Lisa Mcgregor FNP 26 [facility] [address] [place] [address] PCP - General 05/05/22 Md Alfaro MD 05/05/22 documented as of this encounter
--- OUTSIDE RECORDS SUMMARY | 2024-01-20 15:13 | XMS_ITS | Encounter Summary ---
Author Organization [facility] Address [address] [place] [address] Care Team Providers Care Director Music Name Role Phone Md MICHAELA Alfaro Primary Care Provider Unavaila ble Encounter Details Date Type Department Care Team (Late st Contact Info) Description 08/08/2009 Results Only [facility] Laboratory Services - [facility] [address] [place] [address] Radha De Jesus, [facility] [address] [place] [address] [place] [phone] Social History Tobacco Use Types Packs/Day Years Used Date Smoking Tobacco: Never Assessed Comments Unknown Sex and Gender Information Value [...] ? TINY CHUA ? Accession #: ? [id number] ? : ? 1990 (Age: 19) ??F ?Collect Date: ? 08/08/2009 ? Location: ? [facility] ? Receive Date: ? 08/09/2009 ? Provider: ?RADHA REINALDO PATENT DRAFTER ? Copy to: ? Specimen/Source: ?Pap Test, [...] 16:25 ? End of Report ? [facility] 08/08/2009 08/09/2009 us Radha De Jesus PATENT DRAFTER PATHOLOGY ORDERABLES Final R esult [facility] [address] [place] [address] documented in this encounter Visit Diagnoses Not on filedocumented in this encounter Care Teams Director Music Relationship Specialty Start Date End Date Md Alfaro MD PCP - General 08/09/09 05/04/22 documented as of this encounter
--- OUTSIDE RECORDS SUMMARY | 2024-01-20 15:13 | XMS_ITS | Encounter Summary ---
Author Organization [facility] Address [address] [place] [address] Care Team Providers Care Concrete Mixing Plant Laborer Name Role Phone BalbirLisa [facility] Primary Care Provider [phone] Md MICHAELA Alfaro Unavailable Unavailable Encounter Details Date Type Department Care Team (Late st Contact Info) Description 11/26/2023 8:45 EDT Phlebotomy Only [facility] ED Center 2 Phlebotomy [address] [place] [address] Director Of Primary Care, Acc Phlebotomy Encounter for assisted reproductive fertility [...] 13 See Note pg/mL 11/26/2023 11:16 EDT [facility] Comment: NOTE: FEMALE [...] & BLOOD GAS ORDER AIDA Final Result [facility] [address] [place] [phone] * PROGESTERONE (11/26/2023 9:29 EDT) Progesterone 0.4 See Table ng/mL 11/26/2023 11:17 EDT [facility] Comment: Female Reference [...] & BLOOD GAS ORDER AIDA Final Result [facility] [address] [place] [address] documented in this encounter Visit Diagnoses Diagnosis Encounter for assisted reproductive fertility procedure cycle documented in this encounter Care Teams Concrete Mixing Plant Laborer Relationship Specialty Start Date End Date Lisa Mcgregor FNP [address] [place] [address] [address] [place] [phone] PCP - General 05/05/22 Md Alfaro MD 05/05/22 documented as of this encounter
--- OUTSIDE RECORDS SUMMARY | 2024-01-20 15:13 | XMS_ITS | Encounter Summary ---
Author Organization [facility] Address [address] [place] [address] Care Team Providers Care Clinical Engineering Manager Name Role Phone Md MICHAELA Alfaro Primary Care Provider UnavailLisa Jeffrey Primary Care Provider [phone] Md MICHAELA Alfaro Unavailable Unavailable Encounter Details Date Type Department Care Team (Late st Contact Info) Description 01/17/2021 Lab Requisition [facility] Pathology & Laboratory Medicine - [facility] [address] [place] [address] Outr Resulting Lab, Provider Social History Tobacco [...] Result Negative Negative 01/20/2021 14:[address] [facility] Chlamydia trachomatis Result Negative Negative 01/20/2021 14:[address] [facility] Swab ENTIRE ENDOCERVIX / Unknown 01/16/2021 14:30 EST 01/17/2021 16:58 EST us Provider Outr Resulting Lab MICROBIOLOGY - GENER AL ORDERABLES Final Result Performing Organization Address City/State/[facility] Co de Phone Number [facility] [address] [place] [address] documented in this encounter Visit Diagnoses Not on filedocumented in this encounter Care Teams Clinical Engineering Manager Relationship Specialty Start Date End Date Md Alfaro MD PCP - General 08/09/09 05/04/22 Lisa Mcgregor FNP [address] [phone] PCP - General 05/05/22 Md Alfaro MD 05/05/22 documented as of this encounter
--- OUTSIDE RECORDS SUMMARY | 2024-01-20 15:13 | XMS_ITS | Encounter Summary ---
[place] [address] Care Team Providers Care Solid Waste Disposal Manager Name Role Phone Eleazar Hayes MD Primary Care Provider [phone] Encounter Details Date Type Department Care Team (Late st Contact Info) Description 09/17/2022 [place] [address] Nasreen Dee [facility] [place] [address] Family history of seizure in son (Primary Dx) Social History Tobacco Use Types Packs/Day Years Used Date Smoking Tobacco: Never Assessed Sex and Gender Information Value Date Recorded Sex Assigned at Female 10/01/2021 9:10 PM EDT Gender Identity Female 10/01/2021 9:10 PM EDT Sexual Orientation Straight 10/01/2021 9: 10 PM EDT documented as of this encounter Progress Notes * Nasreen Dee [facility] - 09/17/2022 5:00 PM EDT In [...] uncertain significance will be tested. AGO2: c.2542G>A, p.([id number]) SETD1A: c.[id number], p.([id number]) CTCF: c.853A>C, p.([id number]) Nasreen Dee, , [facility] Licensed Genetic Counselor [phone] documented in this encounter Plan of Treatment [...] Primary documented in this encounter Care Teams Solid Waste Disposal Manager Relationship Specialty Start Date End Date Eleazar Hayes MD [address] [place] [address] PCP - General 01/28/10 documented as of this encounter
--- OUTSIDE RECORDS SUMMARY | 2024-01-20 15:13 | XMS_ITS | Encounter Summary ---
Author Organization [facility] Address [address] [place] [address] Care Team Providers Care Hot Air Furnace Installer And Repairer Name Role Phone Md MICHAELA Alfaro Primary Care Provider Unavaila Lisa Yang HOLTER SCANNING TECHNICIAN Primary Care Provider [phone] Md MICHAELA Alfaro Unavailable Unavailable Encounter Details Date Type Department Care Team (Late st Contact Info) Description 05/26/2019 Lab Requisition [facility] Pathology & Laboratory Medicine - [facility] [address] [place] [address] Radha De Jesus [address] [place] [phone] Encounter for other general examination Social History [...] types, PCR Negative Negative 06/05/2019 14:38 EDT [facility] Comment:No E6 or E7 mRNA is detected from HPV types 16,18,31,33,35,39,45,51,52,56,58,59,66, and 68 by metalsmith helper mediated amplification. Papanicolaou smear specimen (specimen) CERVIX UTERI STRUCTURE / Unknown 05/26/2019 9:30 EDT 06/02/2019 10:00 EDT us Radha De Jesus HOLTER SCANNING TECHNICIAN MICROBIOLOGY - GENERAL ORDER AIDA Final Result [facility] [address] [place] [address] * PAP TEST (05/26/2019 9:30 EDT) Specimens A. Cervix and/or Endocervix, ThinPrep Imaging System with Manual Evaluation 06/05/2019 14:38 T [facility] Specimen Adequacy Satisfactory for Evaluation - transformation zone component present Scant due to excessive blood 06/05/2019 14:38 [facility] General Categorization Negative for intraepithelial lesion or malignancy 06/05/2019 14:38 [facility] Attestation . 06/05/2019 14:38 [facility] at 1438 Clinical History NONE 06/05/19 14:38 [facility] HPV The result for the Human Papillomavirus (HPV) Detection-High Risk Types is Negative. No E6 or E7 mRNA is detected from HPV types 16,18,31,33,35,39 ,45,51,52,56,58,5 9,66, and 68 by metalsmith helper mediated amplification.Leyda ting was performed on specimen [id number] and was resulted on 06/05/2019 1435 EDT by DEIRDRE, LAB INSTRUMENT RESULTS IN 06/05/2019 14:38 EDT [facility] Scanned Images 06/05/2019 14:38 EDT [facility] Papanicolaou smear specimen (specimen) CERVIX UTERI STRUCTURE / Unknown 05/26/2019 9:30 EDT 05/26/2019 15:45 EDT us Radha De Jesus HOLTER SCANNING TECHNICIAN PATHOLOGY ORDERABLES Final R esult [facility] [address] [place] [address] documented in this encounter Visit Diagnoses Diagnosis Encounter for other general examination documented in this encounter Care Teams Hot Air Furnace Installer And Repairer Relationship Specialty Start Date End Date Md Alfaro MD PCP - General 08/09/09 05/04/22 Lisa Mcgregor FNP 26 [facility] [address] [place] [phone] PCP - General 05/05/22 Md Alfaro MD 05/05/22 documented as of this encounter
--- OUTSIDE RECORDS SUMMARY | 2024-01-20 15:13 | XMS_ITS | Encounter Summary ---
Author Organization [facility] Address [address] [place] [address] Care Team Providers Care Garment Sewer Hand Name Role Phone Md MICHAELA Alfaro Primary Care Provider Liena ble Encounter Details Date Type Department Care Team (Late st Contact Info) Description 06/06/2013 Results Only [facility] Laboratory Services - [facility] ([facility] [address] [place] [address] Armond Owen CNM [address] [place], [place] [phone] Social History Tobacco Use Types Packs/Day Years [...] ? TINY CHUA ? Accession #: ? [id number] : ? 1990 (Age: 23) ??F ?Collect Date: ? 06/06/2013 Location: ? [facility] ? Receive Date: ? 06/08/2013 Provider: ?ARMOND HOLLINGSWORTHM Copy to: ?GLORIA MOORE CONCESSION SUPERVISOR ? Specimen/Source: ?Pap Test, Cervix/Endocervix, ThinPrep Imaging [...] End of Report [facility] 06/06/2013 06/08/2013 us Armond Owen CNM PATHOLOGY ORDERABLES Final Resul t [facility] [address] [place] [address] documented in this encounter Visit Diagnoses Not on filedocumented in this encounter Care Teams Garment Sewer Hand Relationship Specialty Start Date End Date Md Alfaro MD PCP - General 08/09/09 05/04/22 documented as of this encounter
--- OUTSIDE RECORDS SUMMARY | 2024-01-20 15:13 | XMS_ITS | Encounter Summary ---
Author Organization [facility] Address [address] [place] [address] Care Team Providers Care Pack Worker Supervisor Name Role Phone Lisa Mcgregor [facility] Primary Care Provider [phone] Md MICHAELA Alfaro Unavailable Unavailable Encounter Details Date Type Department Care Team (Late st Contact Info) Description 11/02/2023 Orders Only [facility] Reproductive Medicine & Infertility Center - [facility] [address] [place] [address] Aleisha Che RN Social History Tobacco Use [...] Refills Last Filled Start Date End Date chorionic gonadotropin, human (PREGNYL) 10,000 unit injection Injected 1 mL into the skin once when directed. 1 Each 11/02/2023 progesterone in oil 50 mg/mL injection Inject 1 mL into the muscle daily. 3 Each 1 11/02/2023 menotropins (MENOPUR) 75 unit solution for subcutaneous injection Inject 150 Units into the skin daily. 15 Each 11/02/2023 4 Follitropin Arnoldo (GONAL-F) 1,050 unit recon soln Inject 300 Units into the skin daily. 4 Each 11/02/2023 4 ganirelix (ANTAGON) 250 mcg/0.5 mL syringe Inject 0.5 mL into the skin daily. 8 Each 11/02/2023 4 documented in this encounter Plan of Treatment Not on file documented as of this encounter Visit Diagnoses Not on filedocumented in this encounter Care Teams Pack Worker Supervisor Relationship Specialty Start Date End Date Lisa Mcgregor FNP 26 [facility] [address] [place] [phone] PCP - General 05/05/22 Md Alfaro MD 05/05/22 documented as of this encounter
--- OUTSIDE RECORDS SUMMARY | 2024-01-20 15:13 | XMS_ITS | Encounter Summary ---
Author Organization [facility] Address [address] [place] [address] Care Team Providers Care Remodeler Name Role Phone Md MICHAELA Alfaro Primary Care Provider Unavaila ble Encounter Details Date Type Department Care Team (Late st Contact Info) Description 02/26/2011 Results Only [facility] Laboratory Services - [facility] ([facility]) [address] [place] [address] Gloria Ceja FNP [address] [place], [place] [address] Social History Tobacco Use Types Packs/Day Years [...] ? TINY CHUA ? Accession #: ? [id number] : ? 1990 (Age: 20) ??F ?Collect Date: ? 02/26/2011 Location: ? [facility] ? Receive Date: ? 03/04/2011 Provider: ?GLORIA MUNIZP Copy to: ? Specimen/Source: ?Pap Test, Cervix/Endocervix, [...] End of Report [facility] 02/26/2011 03/04/2011 us Gloria MENESES PATHOLOGY ORDERABLES Final Resul t [facility] [address] [place] [address] documented in this encounter Visit Diagnoses Not on filedocumented in this encounter Care Teams Remodeler Relationship Specialty Start Date End Date Md Alfaro MD PCP - General 08/09/09 05/04/22 documented as of this encounter
--- OUTSIDE RECORDS SUMMARY | 2024-01-20 15:13 | XMS_ITS | Encounter Summary ---
Author Organization [facility] Address [address] [place] [address] Care Team Providers Care Rental Manager Name Role Phone BalbirLisa [facility] Primary Care Provider [phone] Md MICHAELA Alfaro Unavailable Unavailable Reason for Visit * Reason Comments Infertility Baseline Encounter Details Date Type Department Care Team (Late st Contact Info) Description 11/26/2023 8:00 EDT Procedure visit [facility] Center Reproductive Medicine & Infertility Center - [facility] [address] [place], [place] [phone] Sheila Robb MD 111 [facility], [address] [place] [address] Encounter for assisted reproductive fertility [...] Estradiol 13 See Note pg/mL Prior Ovarian Struthers Testing: [facility]SH: 4.6 (05/15/2022) AM[facility]: 5.8 (09/06/23) [...] and Infertility Fellow (PGY7) [facility] * Sheila Robb MD - 11/26/2023 0800 EDT Attestation statement: I discussed the patient with the resident/fellow at the time of the visit. Feliciano with the findings and the plan of care documented in the resident's/fellow's note. documented in this encounter Plan of Treatment Scheduled Orders [...] 1,060 See Note pg/mL 12/05/2023 9:02 EDT [facility] Comment: NOTE: FEMALE [...] & BLOOD GAS ORDER AIDA Final Result [facility] [address] [place] [address] * ESTRADIOL, ADULTS (12/03/2023 8:45 EDT) [facility] Estradiol 392 See Note pg/mL 12/03/2023 10:07 EDT [facility] Comment: NOTE: FEMALE [...] ORDER AIDA Final Result Performing Organization Address [facility] de Phone Number [facility] [address] [place] [address] * ESTRADIOL, ADULTS (12/01/2023 8:50 EDT) Estradiol 124 See Note pg/mL 12/01/2023 9:57 EDT [facility] Comment: NOTE: FEMALE [...] ORDER AIDA Final Result Performing Organization Address [facility] de Phone Number [facility] [address] [place], [place] [address] * ESTRADIOL, ADULTS (11/29/2023 8:43 EDT) Estradiol 31 See Note pg/mL 11/29/2023 10:00 EDT [facility] Comment: NOTE: FEMALE [...] ORDER AIDA Final Result Performing Organization Address [facility] de Phone Number [facility] [address] [place] [address] * ESTRADIOL, ADULTS (11/26/2023 9:29 EDT) [facility] Estradiol 13 See Note pg/mL 11/26/2023 11:16 EDT [facility] Comment: NOTE: FEMALE [...] ORDER AIDA Final Result Performing Organization Address [facility] Co de Phone Number [facility] [address] [place] [address] * PROGESTERONE (11/26/2023 9:29 EDT) Progesterone 0.4 See Table ng/mL 11/26/2023 11:17 EDT [facility] Comment: Female Reference [...] Unknown 11/26/2023 9:29 EDT 11/26/2023 10:19 EDT us Sheila Robb MD CHEMISTRY & BLOOD GAS ORDER AIDA Final Result [facility] [address] [place], [place] [phone] documented in this encounter Visit Diagnoses Diagnosis Encounter for assisted reproductive fertility procedure cycle- Primary documented in this encounter Care Teams Rental Manager Relationship Specialty Start Date End Date Lisa Mcgregor FNP 26 [facility] [address] [place] [phone] PCP - General 05/05/22 Md Angelina, 05/05/22 documented as of this encounter
--- OUTSIDE RECORDS SUMMARY | 2024-01-20 15:13 | XMS_ITS | Encounter Summary ---
Author Organization [facility] Address [address] [place] [address] Care Team Providers Care Project Management Advisor Name Role Phone Lisa Mcgregor [facility] Primary Care Provider [phone] Md MICHAELA Alfaro Unavailable Unavailable Reason for Referral * ALTERNATIVE MEDICINE PRACTITIONER (Routine/Next Available) - Authorization Not Required Specialty Diagnoses / Procedures Referred By Contac t Referred To Contact Diagnoses Encounter for assisted reproductive fertility cycle Procedures BASELINE INVITRO Lucrecia Land MD Phone: tel: fax: Referral ID Status Reason Start Date Expiration Date Visits Requested Visits Authorized [id number] Authorization Not Required 11/01/2023 1 1 Reason for Visit * ALTERNATIVE MEDICINE PRACTITIONER (Routine/Next Available) - Authorization Not Required Specialty Diagnoses / Procedures Referred By Contac t Referred To Contact Diagnoses Encounter for assisted reproductive fertility cycle Procedures US BASELINE INVITRO Lucrecia Land MD Phone: tel: fax: Referral ID Status Reason Start Date Expiration Date Visits Requested Visits Authorized [id number] Authorization Not Required 11/01/2023 1 1 Encounter Details Date Type Department Care Team (Latest Contact Info) Description 11/26/2023 7:25 EDT - 11/26/2023 23:59 EDT Hospital Encounter [facility] - [address] [address] Encounter for assisted reproductive fertility cycle Discharge [...] free fluid visualized Impression ========= Baseline - 52993 with mock as above Follow-up ======== per [...] free fluid visualized Impression ========= Baseline - 94222 with mock as above Follow-up ======== per KIANNA Comment ======== Mock CX 3 Fund 7 transf 6 Z31.83 encounter for assisted reproductive fertility procedure cycle DATE OF SERVICE: 11/26/2023 Lucrecia Land MD [facility] OB ORDERABLES Fin al Result documented in this encounter Visit Diagnoses Diagnosis Encounter for assisted reproductive fertility cycle Encounter for assisted reproductive fertility procedure cycle documented in this encounter Care Teams Project Management Advisor Relationship Specialty Start Date End Date Lisa Mcgregor FNP [address] [facility] [address] [place] [phone] PCP - General 05/05/22 Md Angelina, 05/05/22 documented as of this encounter
--- OUTSIDE RECORDS SUMMARY | 2024-01-20 15:13 | XMS_ITS | Encounter Summary ---
Author Organization [facility] Address [address] [place] [address] Care Team Providers Care Brand Designer Name Role Phone BalbirLisa [facility] Primary Care Provider [phone] Md MICHAELA Alfaro Unavailable Unavailable Reason for Visit * Reason Comments Advice Only Encounter Details Date Type Department Care Team (Late st Contact Info) Description 09/17/2023 13:30 EDT Office Visit [facility] Center Reproductive Medicine & Infertility Center - [facility] [address] [place], [place] [address] Layla Reid MD [address] [facility], [address] [place] [address] Infertility management (Primary Dx); Female [...] documented in this encounter Progress Notes * SantanaEros isbellli - 09/17/2023 1330 EDT IN-VITRO FERTILIZATION INTAKE VISIT Date: 09/17/23 Patient Name: Tiny Juarez Patient Age (at time of encounter): 33 Patient : 1990 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 She and her would like to conceive together but he had a vasectomy performed in 2019. They had a consult with Urology at [facility] to discuss vasectomy reversal but this was cost prohibitive for them, so opted for IVF/ICSI after TESE. Pete underwent TESE earlier this month and has 4 vials cryopreserved, with 2-3 twitch-2+ prog sperm per HPF. Prior infertility treatment: None They live in [place], [place]. 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 [employer] Past Medical History - MSK issues Past [...] MD Reproductive Endocrinology and Infertility Fellow (PGY6) [facility] Attestation statement: I saw and counseled [...] 14:20 EDT) ABO O 09/17/2023 15:38 EDT [facility] Rh Factor Positive 09/17/2023 15:38 EDT [facility] Antibody Screen Negative 09/17/2023 15:38 [facility] Specimen Expires: 09/20/2023 @ 23:59 09/17/2023 15:38 EDT [facility]OD [facility] Blood VENOUS BLOOD / Unknown Venipuncture / Unknown 09/17/2023 14:20 EDT 09/17/2023 14:29 EDT Lucrecia Land MD BLOOD BANK TESTS Edited Result - Final Performing Organization Address City/State/[facility] Co de Phone Number [facility]LOOD [facility]ANK [address] [place] [address] * COMPLETE BLOOD COUNT (09/17/2023 14:20 EDT) WBC 7.91 4.00 - 12.40 K/cmm 09/17/2023 14:53 [facility] RBC 4.47 3.86 - 5.04 M/cmm 09/17/2023 14:53 [facility] Hemoglobin 13.8 11.6 - 15.2 g/dL 09/17/2023 14:53 [facility] HCT 40.2 34.9 - 44.4 % 09/17/2023 14:53 [facility] MCV 90 81 - 98 fL 09/17/2023 14:53 [facility] MCH 30.9 26.7 - 33.3 pg 09/17/2023 14:53 [facility] MCHC 34.3 32.1 - 35.9 g/dL 09/17/2023 14:53 [facility] RDW-CV 12.1 <14.7 % 09/17/2023 14:53 [facility] RDW-SD 39.7 <50.4 fl 09/17/2023 14:53 [facility] PLT 191 141 - 377 K/cmm 09/17/2023 14:53 [facility] MPV 11.9 9.5 - 12.7 fL 09/17/2023 14:53 [facility] Blood VENOUS BLOOD / Unknown Venipuncture / Unknown 09/17/2023 14:20 EDT 09/17/2023 14:46 EDT us Lucrecia Land MD HEMATOLOGY & PF4 ORDERAB LES Final Result [facility] [address] [place] [address] documented in this encounter Visit Diagnoses Diagnosis Infertility management- Primary Unspecified procreative management Female infertility associated with male factors Female infertility of other specified origin documented in this encounter Historical Medications * This list may reflect changes made after this encounter. 25/iron fum/folic/dha (-1 ORAL) Take by mouth daily. acyclovir (ZOVIRAX) 200 mg capsule Take 2 Capsules by mouth 2 times daily. vitamin E, DL, Acetate, 22.5 mg (50 unit)/mL drops oral solution Take 13.5 mg by mouth daily. 11/26/2023 added in this encounter Care Teams Brand Designer Relationship Specialty Start Date End Date Lisa Mcgregor FNP [address] [place] [phone] PCP - General 05/05/22 Md Alfaro MD 05/05/22 documented as of this encounter
--- OUTSIDE RECORDS SUMMARY | 2024-01-20 15:13 | XMS_ITS | Encounter Summary ---
Author Organization [facility] Address [address] [place] [address] Care Team Providers Care Aerial Photograph Interpreter Name Role Phone BalbirLisa [facility] Primary Care Provider [phone] Md MICHAELA Alfaro Unavailable Unavailable Reason for Referral * HRIS COORDINATOR (Routine/Next Available) - Closed Specialty Diagnoses / Procedures Referred By [facility] Referred To Contact Diagnoses Secondary oligomenorrhea Fertility testing Procedures US HYSTEROSONOGRAPHY Elizabeth Ingram DO [facility] REGISTERED NURSE MIDWIFE/KIANNA Referral ID Status Reason Start Date Expiration Date Visits Re quested Visits Authorized [id number] Closed 05/13/2022 1 1 Reason for Visit * Reason Comments New Patient Visit Infertility, partner with history of vasectomy * Consult (Routine) - Receiving Office to Obtain Authorization Specialty Diagnoses / Procedures Referred By Contact Referred To Contact Reproductive Endocrinology and Infertility Diagnoses Encounter for male factor infertility in female patient Female infertility of other origin Tatyana Daniels MD [address] [place] [address] [place] [address] Phone: tel:[phone] fax:[phone] [facility] Reproductive Medicine & Infertility Center - [facility] [address] [place] [address] Phone: tel: fax: Referral ID Status Reason Start Date Expiration Date Visits Requested Visits Authorized [id number] Receiving Office to Obtain Authorization 1 1 Encounter Details Date Type Department Care Team (Latest Contact Info) Description 05/13/2022 13:00 EST Telemedicine [facility] Reproductive Medicine & Infertility Center [address] [address] Elizabeth Ingram DO Secondary oligomenorrhea (Primary Dx); Acne vulgaris; Encounter [...] Elizabeth Ingram DO - 05/13/2022 1300 EST [facility] Reproductive Medicine Telehealth Visit Chief Complaint Patient presents with ??? New Patient Visit Infertility, partner with history of vasectomy Tiny, 31 y.o. is contacted for an (audio-visual) Telehealth visit. Today's visit was provided through telemedicine conferencing: Using [employer] platform. Consent: The concept of telemedicine?? has [...] They had a consult with Urology at [facility] to discuss vasectomy reversal but this is [...] in January 2021. 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 They live in [place], [place]. Menstrual and Endocrine History LMP Patient's [...] Sex Delivery Anes PTL Lv 1 Term 2013 Vag-Spont Gynecologic History Last PAP 2022, thinks [...] Augmentin [Amoxicillin-Pot Clavulanate] Rash Review of Systems REGISTERED NURSE MIDWIFE ROS Complete: Negative except as above. 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 She prefers these be done at [facility], orders faxed. ?? In terms of preconception [...] discussed and plan of care formulated with Sehila Robb MD, KIANNA Attending. Elizabeth Ingram DO, PGY6 Fellow Reproductive Endocrinology & Infertility [facility] 05/13/2022 * Sheila Robb MD - 05/13/2022 [...] view Impression ========= Sonohyst T HyCoSy - 97126 + 13014 Normal anteverted uterus, thin endometrium. 3D imaging was utilized. Coronal rendered image of the uterus during saline instillation shows a normal uterine cavity. HyCoSy shows bilateral tubal patency. Normal appearing ovaries, combined AFC R 34. Transvaginal 3D - 85499 I have personally reviewed and adjusted the [...] view Impression ========= Sonohyst T HyCoSy - 43485 + 44335 Normal anteverted uterus, thin endometrium. 3D imaging was utilized. Coronal rendered image of the uterus duringsaline instillation shows a normal uterine cavity. HyCoSy shows bilateral tubal patency. Normal appearing ovaries, combined AFC R 34. Transvaginal 3D - 98546 I have personally reviewed and adjusted the images for the 3D renderingprior to interpretation. Follow-up ======== with Dr. Ingram Comment ======== Z31.41 encounter for fertility testing,?Ultrasound findings discussedw/patient. DATE OF SERVICE: 05/21/2022 us Elizabeth Ingram DO IMG US OB ORDERABLES Final Result documented in this encounter Visit Diagnoses Diagnosis Secondary oligomenorrhea- Primary Scanty or infrequent menstruation Acne vulgaris Other acne Encounter for preconception consultation Other procreative management counseling and advice Fertility testing Secondary oligomenorrhea Scanty or infrequent menstruation Fertility testing documented in this encounter Care Teams Aerial Photograph Interpreter Relationship Specialty Start Date End Date Lisa Mcgregor FNP 26 [facility] [address] [place] [phone] PCP - General 05/05/22 Md Alfaro MD 05/05/22 documented as of this encounter
--- OUTSIDE RECORDS SUMMARY | 2024-01-20 15:13 | XMS_ITS | Encounter Summary ---
Author Organization [facility] Address [address] [place] [address] Care Team Providers Care Foundation Maker Name Role Phone Md MICHAELA Alfaro Primary Care Provider Unavaila ble Encounter Details Date Type Department Care Team (Late st Contact Info) Description 05/06/2018 Results Only [facility] [phone] Radha De Jesus, [address] [place] [phone] Social History Tobacco Use Types Packs/Day Years [...] ? TINY CHUA ? Accession #: ? [id number] : ? 1990 (Age: 27) ??F ?Collect Date: ? 05/06/2018 Location: ? [facility] ? Receive Date: ? 05/06/2018 Provider: ?RADHA DE JESUS [employer] PARAPROFESSIONAL Copy to: ?GLORIA MOORE [employer] PARAPROFESSIONAL ? Specimen/Source: ?Pap Test, Cervix, ThinPrep Imaging [...] Date: ??05/09/2018 15:06 End of Report [facility] 05/06/2018 05/06/2018 us Radha De Jesus [employer] PARAPROFESSIONAL PATHOLOGY ORDERABLES Final R esult [facility] [address] [place] [address] documented in this encounter Visit Diagnoses Not on filedocumented in this encounter Care Teams Foundation Maker Relationship Specialty Start Date End Date Md Alfaro MD PCP - General 08/09/09 05/04/22 documented as of this encounter
--- OUTSIDE RECORDS SUMMARY | 2024-01-20 15:13 | XMS_ITS | Encounter Summary ---
Author Organization [facility] Address [address] [place] [address] Care Team Providers Care Sap Abap Developer Name Role Phone Md MICHAELA Alfaro Primary Care Provider Unavaila ble Encounter Details Date Type Department Care Team (Late st Contact Info) Description 10/24/2015 Results Only [facility] [phone] Radha De Jesus, [address] [place] [phone] Social History Tobacco Use Types Packs/Day Years [...] ? TINY CHUA ? Accession #: ? [id number] : ? 1990 (Age: 25) ??F ?Collect Date: ? 10/24/2015 Location: ? [facility] ? Receive Date: ? 10/25/2015 Provider: ?RADHA DE JESUS WET POUR MIXER Copy to: ?GLORIA MOORE WET POUR MIXER ? Specimen/Source: ?Pap Test, Cervix/Endocervix, ThinPrep Imaging [...] Report Date: ??10/31/2015 11:00 End of Report [facility] 10/24/2015 10/25/2015 us Radha De Jesus WET POUR MIXER PATHOLOGY ORDERABLES Final R esult [facility] [address] [place] [address] documented in this encounter Visit Diagnoses Not on filedocumented in this encounter Care Teams Sap Abap Developer Relationship Specialty Start Date End Date Md Alfaro MD PCP - General 08/09/09 05/04/22 documented as of this encounter
--- OUTSIDE RECORDS SUMMARY | 2024-01-20 15:13 | XMS_ITS | Clinical Summary ---
Author Organization [facility] [place] [address] Care Team Providers Care Program Counselor Name Role Phone Eleazar Hayes MD Primary Care Provider [phone] Allergies Active Allergy Reactions Criticality Noted Date [...] PAP Smear 05/24/2019 Covid-19 Vaccine (1 - 2023- season) 2023 Influenza (Flu) vaccine (1 o f 1 - Influenza standard series) 11/07/2023 12/26/2014 Care Teams Program Counselor Relationship Specialty Start Date End Date Eleazar Hayes MD [address] [place] [address] PCP - General 01/28/10
--- OUTSIDE RECORDS SUMMARY | 2024-01-20 15:13 | XMS_ITS | Encounter Summary ---
Author Organization [facility] Address [address] [place] [address] Care Team Providers Care Travel Services Professional Name Role Phone Balbir Lisa [facility] Primary Care Provider [phone] Md MICHAELA Alfaro Unavailable Unavailable Encounter Details Date Type Department Care Team (Late st Contact Info) Description 05/15/2022 Lab Requisition [facility] Pathology & Laboratory Medicine - [facility] [address] [place] [address] Outr Resulting Lab, Provider Social History Tobacco [...] 11:52 EST) Hold Hold 05/15/2022 19:01 EST [facility] Blood VENOUS BLOOD / Unknown 05/15/2022 11:52 EST 05/15/2022 18:00 EST us Provider Outr Resulting Lab LAB INFO SERVICE AND SUPPORT & PHONE RESULT Final Result Performing Organization Address City/[facility]/ZIP Co de Phone Number [facility] [address] [place] [address] * HOLD SST (05/15/2022 11:52 EST) Hold Hold 05/15/2022 19:01 EST [facility] Blood VENOUS BLOOD / Unknown 05/15/2022 11:52 EST 05/15/2022 18:00 EST us Provider Outr Resulting Lab LAB INFO SERVICE AND SUPPORT & PHONE RESULT Final Result Performing Organization Address City/[facility]/ZIP Co de Phone Number [facility] [address] [place] [address] * FSH (05/15/2022 11:52 EST) FSH 4.6 See Note mIU/mL 05/15/2022 19:13 EST [facility] Blood VENOUS BLOOD / Unknown 05/15/2022 11:52 EST 05/15/2022 18:00 EST Narrative [facility] - 05/15/2022 19:13 EST NOTE: Female FSH Reference Ranges (Menstruating): PHYSIOLOGICAL STATUS ? REFERENCE RANGE ? Follicular (-12 to -4 days): ?? 2.5 - 10.2 mIU/mL Midcycle (-3 to +2 days): ?3.4 - 33.4 mIU/mL Luteal (+4 to +12 days): ? 1.5 - 9.1 mIU/mL Postmenopausal: ?23.0 - 116.3 mIU/mL Reference Ranges for pediatric non-menstruating female patients have not been established. us Provider Outr Resulting Lab CHEMISTRY & BLOOD GA S ORDERABLES Final Result Performing Organization Address [facility] Co de Phone Number [facility] [address] [place] [address] * MEASLES IGG AB (05/15/2022 11:52 EST) Pathologist [facility] Measles IgG Ab Positive See Note 05/18/2022 8:57 EDT [facility] Comment:Presence of detectab le measles virus IgG antibodies. Blood VENOUS BLOOD / Unknown 05/15/2022 11:52 EST 05/15/2022 18:00 EST us Provider Outr Resulting Lab IMMUNOLOGY AND SEROL OGY ORDERABLES Final Result Performing Organization Address [facility] Co de Phone Number [facility] [address] [place] [address] * PROLACTIN (05/15/2022 11:52 EST) Pathologist [facility] Prolactin 4.8 See Note ng/mL 05/15/2022 19:16 EST [facility] Comment: NOTE: Female Reference Ranges: PHYSIOLOGICAL STATUS ?REFERENCE RANGE ? Postmenopausal ?1.8 - 20.3 ng/mL ?9.7 - 208.5 ng/mL Non- ?2.8 - 29.2 ng/mL Blood VENOUS BLOOD / Unknown 05/15/2022 11:52 EST 05/15/2022 18:00 EST Provider Outr Resulting Lab CHEMISTRY & BLOOD GA S ORDERABLES Final Result Performing Organization Address [facility]/State/[facility] Co de Phone Number [facility] [address] [place] [address] * ESTRADIOL, ADULTS (05/15/2022 11:52 EST) Estradiol 28 See Note pg/mL 05/15/2022 19:14 EST [facility] Comment: NOTE: FEMALE REFERENCE RANGES: [...] Provider Outr Resulting Lab CHEMISTRY & BLOOD GA S ORDERABLES Final Result Performing Organization Address [facility]/State/ZIP Co de Phone Number [facility] [address] [place] [address] * DHEA SULFATE (05/15/2022 11:52 EST) DHEA Sulfate 233 96 - 512 ug/dL 05/18/2022 9:16 EDT [facility] Blood VENOUS BLOOD / Unknown 05/15/2022 11:52 EST 05/15/2022 18:00 EST us Provider Outr Resulting Lab CHEMISTRY & BLOOD GA S ORDERABLES Final Result Performing Organization Address [facility] Co de Phone Number [facility] [address] [place] [address] * RUBELLA IGG ANTIBODY (05/15/2022 11:52 EST) Rubella IgG Ab Positive See Note 05/18/2022 9:00 EDT [facility] Comment:Positive for IgG ant ibodies to Rubella virus. Blood VENOUS BLOOD / Unknown 05/15/2022 11:52 EST 05/15/2022 18:00 EST us Provider Outr Resulting Lab CHEMISTRY & BLOOD GA S ORDERABLES Final Result Performing Organization Address [facility] Co de Phone Number [facility] [address] [place] [address] documented in this encounter Visit Diagnoses Not on filedocumented in this encounter Care Teams Travel Services Professional Relationship Specialty Start Date End Date Lisa Mcgregor FNP [address] [place] [address] [address] [place] [phone] PCP - General 05/05/22 Md Alfaro MD 05/05/22 documented as of this encounter
--- OUTSIDE RECORDS SUMMARY | 2024-01-20 15:13 | XMS_ITS | Encounter Summary ---
Author Organization [facility] Address [address] [place] [address] Care Team Providers Care Supervisor Sewer Maintenance Name Role Phone Lisa Mcgregor [facility] Primary Care Provider [phone] Md MICHAELA Alfaro Unavailable Unavailable Encounter Details Date Type Department Care Team (Late st Contact Info) Description 02/17/2023 Lab Requisition [facility] Pathology & Laboratory Medicine - [facility] [address] [place] [address] Tatyana Daniels MD [address] [place] [address] [place] [phone] Encounter for other general examination [...] Risk types, PCR Negative Negative 02/26/2023 17:29 [facility] Comment:No E6 or E7 mRNA is detected from HPV types 16,18,31,33,35,39,45,51,52,56,58,59,66, and 68 by mechatronics technician mediated amplification. Pap Test CERVIX UTERI STRUCTURE / Unknown 02/16/2023 15:30 EST 02/24/2023 15:20 EST us Tatyana Daniels MD MICROBIOLOGY - GENERAL ORDER AIDA Final Result Performing Organization Address City/State/[facility] Co de Phone Number [facility] [address] [place] [address] * PAP TEST (02/16/2023 15:30 EST) Specimens A. Cervix and/or Endocervix , ThinPrep Imaging System with Manual Evaluation 02/26/2023 17:29 [facility] Specimen Adequacy Satisfactory for Evaluation - transformation zone component absent 02/26/2023 17:29 [facility] General Categorization Negative for intraepithelial lesion or malignancy 02/26/2023 17:29 [facility] Descriptive Diagnosis Shift in annia present suggestive of bacterial vaginosis. 02/26/2023 17:29 [facility] Attestation . 02/26/2023 17:29 [facility] at 1726 Clinical History See below 02/27/20 17:29 [facility] HPV The result for the Human Papillomavirus (HPV) Detection-High Risk Types is Negative. No E6 or E7 mRNA is detected from HPV types 16,18,31,33,35,39 ,45,51,52,56,58,5 9,66, and 68 by mechatronics technician mediated amplification.Leyda ting was performed on specimen [id number] and was resulted on 02/26/2023 1729 EST by DEIRDRE, LAB INSTRUMENT RESULTS IN 02/26/2023 17:29 EST [facility] Performing Lab [facility] 02/26/2023 17:29 EST [facility] Scanned Images 02/26/2023 17:29 EST [facility] Pap Test CERVIX UTERI STRUCTURE / Unknown 02/16/2023 15:30 EST 02/17/2023 13:40 EST us Tatyana Daniels MD PATHOLOGY ORDERABLES Final R esult [facility] [address] [place] [address] documented in this encounter Visit Diagnoses Diagnosis Encounter for other general examination documented in this encounter Care Teams Supervisor Sewer Maintenance Relationship Specialty Start Date End Date Lisa Mcgregor FNP [address] [place] [phone] PCP - General 05/05/22 Md Angelina, 05/05/22 documented as of this encounter
--- OUTSIDE RECORDS SUMMARY | 2024-01-20 15:13 | XMS_ITS | Encounter Summary ---
Author Organization [facility] Address [address] [place] [address] Care Team Providers Care Unix Engineer Name Role Phone Balbir Lisa [facility] Primary Care Provider [phone] Md MICHAELA Alfaro Unavailable Unavailable Reason for Referral * SCIENTIST (Routine/Next Available) - Closed Specialty Diagnoses / Procedures Referred By Contac t Referred To Contact Diagnoses Secondary oligomenorrhea Fertility testing Procedures US HYSTEROSONOGRAPHY Elizabeth Ingram DO [facility] WARD AIDE/KIANNA Referral ID Status Reason Start Date Expiration Date Visits Re quested Visits Authorized [id number] Closed 05/13/2022 1 1 Reason for Visit * SCIENTIST (Routine/Next Available) - Closed Specialty Diagnoses / Procedures Referred By Contac t Referred To Contact Diagnoses Secondary oligomenorrhea Fertility testing Procedures US HYSTEROSONOGRAPHY Elizabeth Ingram DO [facility] WARD AIDE/KIANNA Referral ID Status Reason Start Date Expiration Date Visits Re quested Visits Authorized [id number] Closed 05/13/2022 1 1 Encounter Details Date Type Department Care Team (Latest Contact Info) Description 05/21/2022 10:33 EDT - 05/21/2022 23:59 EDT Hospital Encounter [facility] - [facility] [place] [address], [place] [id number] Secondary oligomenorrhea; Fertility testing Discharge Disposition: Home [...] Ingram DO - 05/21/2022 1050 EDT Following AppSocially message sent to patient: Marcio Franks, I [...] DO Juan Jose Reproductive Endocrinology & Inf[facility] 05/21/2022 documented in this encounter Plan [...] view Impression ========= Sonohyst T HyCoSy - 29220 + [id number] Normal anteverted uterus, thin endometrium. 3D imaging was utilized. Coronal rendered image of the uterus during saline instillation shows a normal uterine cavity. HyCoSy shows bilateral tubal patency. Normal appearing ovaries, combined AFC R 34. Transvaginal 3D - [id number] I have personally reviewed and adjusted the [...] view Impression ========= Sonohyst T HyCoSy - [id number] + [id number] Normal anteverted uterus, thin endometrium. 3D imaging was utilized. Coronal rendered image of the uterus duringsaline instillation shows a normal uterine cavity. HyCoSy shows bilateral tubal patency. Normal appearing ovaries, combined AFC R 34. Transvaginal 3D - [id number] I have personally reviewed and adjusted the images for the 3D renderingprior to interpretation. Follow-up ======== with Dr. Ingram Comment ======== Z31.41 encounter for fertility testing,?Ultrasound findings discussedw/patient. DATE OF SERVICE: 05/21/2022 us Elizabeth Ingram DO IMG US OB ORDERABLES Final Result documented in this encounter Visit Diagnoses Diagnosis Secondary oligomenorrhea Scanty or infrequent menstruation Fertility testing documented in this encounter Care Teams Unix Engineer Relationship Specialty Start Date End Date Lisa Mcgregor FNP [address] [facility] [address] [place] [phone] PCP - General 05/05/22 Md Alfaro MD 05/05/22 documented as of this encounter
--- OUTSIDE RECORDS SUMMARY | 2024-01-20 15:13 | XMS_ITS | Encounter Summary ---
Author Organization [facility] Address [address] [place] [address] Care Team Providers Care Visual Presentation Manager Name Role Phone Balbir Lisa [facility] Primary Care Provider [phone] Md MICHAELA Alfaro Unavailable Unavailable Encounter Details Date Type Department Care Team (Late st Contact Info) Description 09/06/2023 9:15 EDT Phlebotomy Only [facility] 2 Phlebotomy [address] [place] [address] Sound Equipment Mechanic, Acc Phlebotomy Fertility testing; Female infertility; Encounter for [...] C Antibody Negative Negative 09/06/2023 12:56 EDT [facility] Blood VENOUS BLOOD / Unknown Venipuncture / Unknown 09/06/2023 10:26 EDT 09/06/2023 10:50 EDT Elizabeth Char NewellJuan Jose DO CHEMISTRY & BLOOD GAS ORDER AIDA Final Result [facility] [address] [place] [address] * SYPHILIS SEROLOGY (09/06/2023 10:26 EDT) Syphilis Serology Negative Negative 09/06/2023 15:17 EDT [facility] Blood VENOUS BLOOD / Unknown Venipuncture / Unknown 09/06/2023 10:26 EDT 09/06/2023 10:50 EDT Elizabeth Ingram DO IMMUNOLOGY AND SEROLOGY ORD ERABLES Final Result Performing Organization Address City/[facility] Co de Phone Number [facility] [address] [place] [address] * HEPATITIS B SURFACE ANTIGEN (09/06/2023 10:26 EDT) Hep B Surface Ag Negative Negative 09/06/2023 12:26 EDT [facility] Blood VENOUS BLOOD / Unknown Venipuncture / Unknown 09/06/2023 10:26 EDT 09/06/2023 10:50 EDT Elizabeth Ingram DO CHEMISTRY & BLOOD GAS ORDER AIDA Final Result Performing Organization Address City/[facility]/ZIP Co de Phone Number [facility] [address] [place] [address] * HEPATITIS B CORE ANTIBODY (TOTAL) (09/06/2023 10:26 EDT) Hepatitis B Core Ab, Total Negative Negative 09/06/2023 13:36 EDT [facility] Blood VENOUS BLOOD / Unknown Venipuncture / Unknown 09/06/2023 10:26 EDT 09/06/2023 10:50 EDT [facility] DO CHEMISTRY & BLOOD GAS ORDER AIDA Final Result [facility] [address] [place], [place] [id number] * HIV 1/2 ANTIGEN AND ANTIBODY, 4TH GENERATION (09/06/2023 10:26 EDT) Pathologist [facility] HIV 1 and 2 Antibody/p24 Antigen, 4th Generation Negative Negative 09/06/2023 13:35 EDT [facility] Comment:If acute HIV-1 infec tion is suspected in a high risk patient, submit plasma specimen for HIV-1 RNA quantitation test. Blood VENOUS BLOOD / Unknown Venipuncture / Unknown 09/06/2023 10:26 EDT 09/06/2023 10:50 EDT Narrative [facility] - 09/06/2023 13:35 EDT Fourth Generation assay performed on the [employer] XPT. [facility] DO IMMUNOLOGY AND SEROLOGY ORD ERABLES Final Result Performing Organization Address [facility]/ZIP Co de Phone Number [facility] [address] [place] [address] * TSH (09/06/2023 10:26 EDT) Pathologist [facility] TSH 2.47 0.47 - 4.68 mIU/L 09/06/2023 11:56 EDT [facility] Blood VENOUS BLOOD / Unknown Venipuncture / Unknown 09/06/2023 10:26 EDT 09/06/2023 10:50 EDT Narrative [facility] - 09/06/2023 11:56 EDT The results of this assay can be falsely lowered due to the consumption of Biotin. [facility] DO CHEMISTRY & BLOOD GAS ORDER AIDA Final Result Performing Organization Address City/[facility]/ZIP Co de Phone Number [facility] [address] [place], [place] [phone] * ANTIMULLERIAN HORMONE, S (09/06/2023 10:26 EDT) Pathologist [facility] Antimullerian Hormone, S 5.8 0.58 - 8.1 ng/mL 09/08/2023 10:01 EDT [facility] Comment: ADDITIONAL INFORMATION The testing method is an electrochemiluminescence assay manufactured by [employer] and performed on the Papo system. Values obtained with different assay methods or kits may be different and cannot be used interchangeably. This test has been modified from the manufacturers instructions. Its performance characteristics were determined by [facility] in a manner consistent with CLIA requirements. This test has not been cleared or approved by the U.S. Food and Drug Administration. Test Performed by: [facility] [place] [address] Extension Division Director: Anthony Mccoy Ph.D.; CLIA# [id number] Blood VENOUS BLOOD / Unknown Venipuncture / Unknown 09/06/2023 10:26 EDT 09/06/2023 10:50 EDT Elizabeth Ingram DO HEMATOLOGY & PF4 ORDERABLES Final Result [facility] [address] [place] [address] * VITAMIN D (25,OH) (09/06/2023 10:26 EDT) Pathologist [facility] 25OH Vitamin D Tot 55 30 - 100 ng/mL 09/06/2023 15:11 EDT [facility] Comment: Vitamin D 25,OH Interpretive Ranges: Deficiency: ??<10.0 ng/mL Insufficiency: ??10.0 - 30.0 ng/mL Sufficiency: ??30.0 - 100.0 ng/mL Toxicity: ??>100.0 ng/mL Blood VENOUS BLOOD / Unknown Venipuncture / Unknown 09/06/2023 10:26 EDT 09/06/2023 10:50 EDT Elizabeth Ingram DO CHEMISTRY & BLOOD GAS ORDER AIDA Final Result Performing Organization Address [facility] Co de Phone Number [facility] [address] [place] [address] * CHLAMYDIA/N. GONORRHOEAE AMPLIFIED RNA (09/06/2023 9:47 EDT) Neisseria gonorrhoeae Result Negative Negative 09/07/2023 12:26 EDT [facility] Chlamydia trachomatis Result Negative Negative 09/07/2023 12:26 EDT [facility] Urine URINE / Unknown Urine Collect / Unknown 09/06/2023 9:47 EDT 09/06/2023 10:32 EDT Narrative [facility] - 09/07/2023 12:26 EDT A first catch urine specimen is acceptable for detection of Gonorrhea and Chlamydia, but might detect up to 10% fewer infections when compared with vaginal swab samples. Elizabeth Ingram DO MICROBIOLOGY - GENERAL ORDE RABLES Final Result Performing Organization Address [facility]/ZIP Co de Phone Number [facility] [address] [place] [phone] documented in this encounter Visit Diagnoses Diagnosis Fertility testing Female infertility Female infertility of unspecified origin Encounter for preconception consultation Other procreative management counseling and advice Routine screening for STI (sexually transmitted infection) Screening examination for venereal disease documented in this encounter Care Teams Visual Presentation Manager Relationship Specialty Start Date End Date Lisa Mcgregor FNP [address] [place] [address] [address] [place] [phone] PCP - General 05/05/22 Md Alfaro MD 05/05/22 documented as of this encounter
== END 2024-01-20 15:08 | disposition home or self-care (01) ==
LOC: LBN 15:07
PROVIDERS: PCP Nurse Practitioner Family; Visit Provider Obstetrics & Gynecology Reproductive Endocrinology
DX: O36.80X0 Pregnancy with inconclusive fetal viability, not applicable or unspecified (principal)
CPT/HCPCS: 36415; 84702

== ENCOUNTER 2024-01-27 03:37 | Outpatient (CLI) | payer BC, SELFPAY ==
[2024-01-27 08:56] LABS: HCG Quant, Pregnancy 38 mIU/mL (1-3)
== END 2024-01-27 03:38 | disposition home or self-care (01) ==
LOC: LBO 03:37
PROVIDERS: PCP Nurse Practitioner Family; Visit Provider Obstetrics & Gynecology Reproductive Endocrinology
DX: N97.9 Female infertility, unspecified (principal)
CPT/HCPCS: 36415; 84702

== ENCOUNTER 2024-11-15 02:31 | Outpatient (CLI) | payer BC, SELFPAY ==
--- NOTE | 2024-11-15 | DI.US_ITS ---
Exam(s) US OB MARISABEL WEIGHT EXAM: US OB MARISABEL WEIGHT CLINICAL HISTORY: Z34.93 3RD TRIMESTER 32 Wks EVAL GROWTH,gdm. TECHNIQUE: Transabdominal obstetrical ultrasound performed. COMPARISON: US US OB 2-3 TRIMESTER from 08/22/2024 FINDINGS:: Number of fetuses: 1 position: BREECH Placental location: ANTERIOR No evidence of previa. BIOMETRIC DATA: BPD: 8.13cm, 32weeks 5days HC: 30.73cm, 34weeks 2days AC: 28.57cm, 32weeks 4days FL: 6.15cm, 31weeks 6days EFW: 2,000.8g, 4lb 7.4oz, 57.7% Composite Age: 32weeks 6days UDAY: 01/04/2025 Heart Rate: 168bpm Amniotic fluid index: 14.59cm. Visually, amount of fluid is within normal limits. IMPRESSION: size and weight are within the expected range. DATA REPOSITORY:
== END 2024-11-15 02:51 ==
PROVIDERS: PCP Student in an Organized Health Care Education/Training Program; Visit Provider Student in an Organized Health Care Education/Training Program
DX: Z34.93 Encounter for supervision of normal pregnancy, unspecified, third trimester (principal); Z3A.34 34 weeks gestation of pregnancy
CPT/HCPCS: 76816

== ENCOUNTER 2024-12-05 14:47 | Outpatient (CLI) | payer BC, SELFPAY ==
[2024-12-05 15:21] VITALS: BP 111/55; PULSE 105
[2024-12-05 15:56] VITALS: BP 111/55; PULSE 105; TEMP 36.8
--- NOTE | 2024-12-05 16:46 | W.OBNST ---
Date of service: 12/05/24 Time of Service: 16:46 NST Evaluation Reason for NST Reasons for Nonstress Test: OTHER, SEE COMMENT Reason for NST Other: back pain Gestational Age Gestational Age in Weeks and Days: 34 Weeks and 6Days Test and Monitor Explained Test/Monitor Explained: Test Explained, Monitor Explained and Patient Verbalized Understanding Vital Signs Blood Pressure: 111/55 Pulse: 105 Temperature: 36.8 C Urine Results Urine Protein: Negative Urine Ketones: Negative Urine Glucose: Negative Urine Blood: Negative NST Information Date on Monitor: 12/05/24 Time on Monitor: 15:09 Date off Monitor: 12/05/24 Time off Monitor: 16:00 Total Time on Monitor: 51 NST Interventions: PO Hydration, Reposition Patient and Notify Provider Contraction Frequency: Q6 NST Evaluation Patient States Movement: Present FHR Baseline: 165 Variability: Moderate 6-25 bpm Accelerations: 15x15 Decelerations: None NST Results Other: Pt to remain for proloonged monitoring d/t elevated baseline Note Ultrasound Done: N/A. NST Note Note: NST completed for new onset back pain and leaking fluid. ROM+ was negative. Initially she was sherry every 6 minutes but that has slowed with rest and oral hydration. FHT baseline 165 initially, moderate varibility, no decels, reactive. Baseline slowly coming down to normal range. SVE closed/30/ballotable. DC home with follow up in clinic. NST Reviewed and Verified by: Sergio Robles
[2024-12-05 16:48] VITALS: BP 111/55; PULSE 105; TEMP 36.8
== END 2024-12-05 17:25 ==
LOC: BCD 14:56 → OBS 15:20
PROVIDERS: PCP Student in an Organized Health Care Education/Training Program; Visit Provider Family Medicine
DX: O99.891 Other specified diseases and conditions complicating pregnancy (principal); M54.50 Low back pain, unspecified; Z3A.34 34 weeks gestation of pregnancy
CPT/HCPCS: 00123; 84112; 59025

== ENCOUNTER 2025-01-07 18:45 | Inpatient (IN) | payer BC, SELFPAY ==
[2025-01-07 18:35] VITALS: BP 127/78; PULSE 87; RESP 16; TEMP 36.8
--- NOTE | 2025-01-07 19:03 | HPE_ITS ---
Date of service: 01/07/25 Time of Service: 19:05 Assessment and Plan Assessment and plan (1) : Status: Acute Assessment and plan: 34 year old at 39+4 EGA, here for iIOL for diet controlled GDM. AMA, GBS positive, obesity, IVF , Rh +. We will admit for induction and start with cervical ripening overnight. Velez score <6 on admission; attempted to place Cook catheter during admission exam, which was unsuccessful; we will start with cytotec alone. - admit for indicated IOL for GDM - 25mcg cytotec vaginal on admission; after 6H can continue with 50mcg PO q4H - intermittent EFM; with monitoring for 2h minimum after each cytotec dose - regular diet - Patient would prefer to avoid epidural anesthesia if possible - GBS positive: patient with marked history of rash with augmentin in childhood but tolerates penicillins and amoxicillin. GBS prophylaxis with penicillin G - GDM, diet controlled: POC glucose checks q6H, then q4H during active labor (2) AMA (advanced maternal age) multigravida 35+: Status: Acute (3) GBS (group B Streptococcus carrier), +RV culture, currently : Status: Acute (4) conceived through in vitro fertilization: Status: Acute (5) Gestational diabetes: Status: Acute (6) Obesity: Status: Chronic (7) HSV infection: Status: Chronic OB-HPI Labor/Delivery History of Present Illness Reason for Visit: induction Chief Complaint: Scheduled Induction of Labor Indication for Induction: Gestational Diabetes. History of Present Assessment: History Reviewed & Current Narrative: 34 year old at 39+4 EGA, here for iIOL for diet controlled GDM. Patient is AMA, GBS positive. IVF as prior had a vasectomy. Tiny doing well. Endorses intermittent cramping, which has been present for past few weeks, but no strong contractions. No ROM. No VB, regular FM. Support people will be Pete, , and sister Sonia. Medical Hx: AMA, GBS +, diet-controlled GDM, obesity (BMI 30 at conception), IVF , hx vaginal HSV with no outbreaks this . Son Chema born at this facility in 2013; do note 12H labor at that time and EBL 600, otherwise uncomplicated delivery, 7lb 7 oz Medications at home: PNV, ASA 81mg daily, acyclovir for prophylaxis/suppressive tx from 36 weeks onward. intake labs: WBC 8.83, Hgb 12.9, PLT 226. Blood type O positive, antibody negative. Hep C neg, Hep B neg, RPR NR, HIV neg. Normal cfDNA screen. Baby girl. Admission Hgb: 13.2, admission WBC 10.56 PFSH All Active Problems (Updated 01/07/25 @ 21:11 by Vrea Zhao MD) (Acute) Gestational diabetes (Acute) AMA (advanced maternal age) multigravida 35+ (Acute) GBS (group B Streptococcus carrier), +RV culture, currently (Acute) conceived through in vitro fertilization (Acute) Obesity (Chronic) HSV infection (Chronic 10/24/15) Medical History (Updated 01/07/25 @ 21:11 by Vera Zhao MD) Patient desires with vasectomy, unable to afford reversal Family History Mother Diabetes Father Essential hypertension Sister Essential hypertension Brother Essential hypertension Grandmother Diabetes Personal history of malignant neoplasm Breast cancer Social History (Updated 01/16/22 @ 09:14 by Radha Perry RN) Smoking/Tobacco Use Status: Former Tobacco Use Smoking risk assessment performed?: Yes Alcohol Intake: never Drug use: Never Substance use type: does not use Counseling given: No Housing: house Number of Children: 1 Sexually active: Yes Current gender identity: female What type of physical activity do you participate in: none Seatbelt use: always Do you feel safe at home: Yes Female Reproductive History Menstrual Age of Menarche: 11 Duration of menses: 3-5 days control method: patch History History 3 Para 1 Hx # Term Pregnancies Multiple births Hx # Pregnancies Ectopic pregnancies AB induced Hx Number of Living Children AB spontaneous Past Pregnancies Del. Date GA/Weeks # Preg Succ Route Wgt Sex Labor Lgth Anesth esia Location [facility] 04/25/13 40 No Yes vaginal 3373.593 g Male [facility] Delivery Date: 04/25/13 Last Updated by: Radha Perry RN Chema Meds Allergies and Home Medications Allergies Allergy/AdvReac Type Severity Reaction Status Date / Time amoxicillin trihydrate (From Allergy Intermediate RASH WHEN Verified 02/18/24 12:56 Augmentin) potassium clavulanate (From Allergy Intermediate RASH WHEN Verified 02/18/24 12:56 Augmentin) INFANT Home Medications Medication Instructions Recorded Confirmed Type cholecalciferol (vitamin D3) 10 10 mcg PO DAILY 01/07/25 History mcg (400 unit) capsule vitamin no.56-iron 35 mg 1 cap PO DAILY 02/1701/07/25 History and 5 mg-folic acid 1 mg-dha capsule acyclovir 400 mg tablet 400 mg PO BID 30 days #60 ta b-caps 03/17/24 01/07/25 Rx aspirin 81 mg tablet,delayed 81 mg DAILY To help preve nt 01/07/25 History release (Enteric Coated Aspirin) preeclampsia Held on 01/07/25. Instructions: Changed by Provider Allergy/Medication Comments:: Patient has tolerated amoxicillin and other penicillins well since rash/reaction. Exam Physical Exam Vital signs: Temp Pulse Resp BP 36.8 C 87 16 127/78 01/07/25 18:35 01/07/25 18:35 01/07/25 18:35 01/07/25 18:35 Vital Signs Reviewed: Yes Detailed Labor and Delivery Exam Dilation: 1 Effacement (%): 50 station: -3 Cervix position: mid Consistency: medium Velez Score: Cervical Points Exam 0 1 2 3 Dilation Closed 1-2cm 3-4 cm 5-6cm Effacement 0-30% 40-50% 60-70% 80% Consistency Firm Medium Soft Station -3 -2 -1,0 +1,+2 Position Posterior Mid Anterior VELEZ Score(Cervical Ripeness Score): 4 Amniotic Membrane Status: Intact Contraction Frequency(min): No contractions Fetus A Heart Rate Baseline: 150 Monitor Accelerations: Present Monitor Decelerations: Variable (Intermittent variable decels) Variability: Moderate (6-25 BPM) Presentation: Cephalic Categories: Category I HEENT Exam HEENT Exam: Normal Neck Exam Neck Exam: Normal Respiratory Exam Respiratory Exam: Normal Cardiovascular Exam Cardiovascular Exam: Normal Abdominal Exam Abdominal Exam: Normal Results Results Group Beta Strep: Positive Blood Type: O+ Rubella Status: Immune Varicella Immunity: Immune Ultrasound OB Ultrasound for presentation. Indication: Gestational diabetes Exam complete. Risk Assessment Risk for Shoulder Dystocia 36 Weeks: POSITIVE FOR: Current Gestational DM Increased Risk?: Yes Risk for Pre-Eclampsia Daily Dose ASA Indicated: Yes (AMA) Risk for Post- Hemorrhage At Risk?: Yes Risks Reviewed Risks Reviewed Upon Admission: Yes
[2025-01-07 19:13] LABS: Abs Immature Grans 0.06 10^3/uL (0.0-0.06); HCT 39.1 % (36.0-46.0); HGB 13.2 g/dL (11.2-15.7); Immature Grans % 0.6 %; MCH 30.0 pg (27.0-33.0); MCHC 33.8 % (32.0-36.0); MCV 89 fL (80-95); MPV 11.0 fL (8.0-11.0); Platelet Count 191 10^3/uL (130-400); RBC 4.40 10^6/uL (3.93-5.22); RDW 12.5 % (11.7-14.6); RDW-SD 40.7 fL; WBC 10.56 10^3/uL (4.4-10.8)
[2025-01-07] MEDS: miSOPROStol 25 MCG TAB VG (19:45)
[2025-01-07 19:58] VITALS: BP 124/72; PULSE 78; RESP 16; TEMP 36.6
[2025-01-07 21:53] VITALS: BP 115/78; PULSE 88
[2025-01-08] VITALS (43 sets, daily range): BP systolic 101–134; BP diastolic 55–73; PULSE 73–107; RESP 16; TEMP 36.4–37; O2SAT 91–98; BMI 36.5
[2025-01-08] MEDS: miSOPROStol 50 MCG TAB PO (02:04)
[2025-01-08] MEDS: Lactated Ringers 1,000 ML 999 ML IV (02:45)
--- NOTE | 2025-01-08 03:51 | PGE_ITS ---
Date of service: 01/08/25 Time of Service: 03:51 Pelvic Exam Dilation: 1 Effacement (%): 60 station: -3 Cervix Position: mid BISHOPS Score(Cervical Ripeness Score): 6 Vaginal Exam Presentation: Cephalic Contractions Contraction Frequency(min): irregular, q6min Intensity: Mild/Moderate Fetus A Monitor: External (US) Heart Rate Baseline: 150 Variability: Moderate (6-25 BPM) Categories: Category II Decelerations: Late Recurrence: Intermittent Amniotic Membrane Status: Intact Assessment and Plan Assessment and plan (1) : Status: Acute Assessment and plan: 34 year old at 39+5 EGA; undergoing iIOL for GDM. Also AMA, IVF , with history of obesity, GBS+. Undergoing cervical ripening but exhibiting intermittent late decels with contractions, and one likely prolonged deceleration (interrupted tracing) after most recent dose of cytotec. Tracing improved with repositioning and fluids. Improvement in cervical effacement, sl ight, on recheck but still 1cm dilation at best. We will continue to monitor and reassess at time of next cytotec dosing. (2) Gestational diabetes: Status: Acute (3) AMA (advanced maternal age) multigravida 35+: Status: Acute (4) GBS (group B Streptococcus carrier), +RV culture, currently : Status: Acute (5) conceived through in vitro fertilization: Status: Acute (6) Obesity: Status: Chronic (7) HSV infection: Status: Chronic Objective Abnormal lab results 01/07/25 Range/Units 19:05 Absolute Monocytes 0.84 H (0.1-0.8) 10^3/uL Temp Pulse Resp BP 36.4 C 85 16 118/69 01/08/25 03:43 01/08/25 03:41 01/08/25 03:43 01/08/25 03:41 Laboratory Results WBC 10.56 10^3/uL (4.4-10.8) 01/07/25 19:05 RBC 4.40 10^6/uL (3.93-5.22) 01/07/25 19:05 Hgb 13.2 g/dL (11.2-15.7) 01/07/25 19:05 Hct 39.1 % (36.0-46.0) 01/07/25 19:05 MCV 89 fL (80-95) 01/07/25 19:05 MCH 30.0 pg (27.0-33.0) 01/07/25 19:05 MCHC 33.8 % (32.0-36.0) 01/07/25 19:05 RDW 12.5 % (11.7-14.6) 01/07/25 19:05 Plt Count 191 10^3/uL (130-400) 01/07/25 19:05 MPV 11.0 fL (8.0-11.0) 01/07/25 19:05 Immature Gran % 0.6 % 01/07/25 19:05 Neutrophils % 61.5 % 01/07/25 19:05 Lymphocytes % 27.5 % 01/07/25 19:05 Monocytes % 8.0 % 01/07/25 19:05 Eosinophils % 2.1 % 01/07/25 19:05 Basophils % 0.3 % 01/07/25 19:05 Nucleated RBC % 0.0 % (0.0-0.3) 01/07/25 19:05 Absolute Neutrophils 6.51 10^3/uL (1.2-6.7) 01/07/25 19:05 Absolute Lymphocytes 2.90 10^3/uL (1.2-3.4) 01/07/25 19:05 Absolute Monocytes 0.84 10^3/uL (0.1-0.8) H 01/07/25 19:05 Absolute Eosinophils 0.22 10^3/uL (0.0-0.7) 01/07/25 19:05 Absolute Basophils 0.03 10^3/uL (0.0-0.2) 01/07/25 19:05 ABO/Rh O Positive 01/07/25 19:05 Antibody Screen NEGATIVE 01/07/25 19:05 Subjective Interval history since last seen: Contacted by staff 02:31 due to concern for prolonged deceleration; last dose of cytotec 02:05 and FHT noted to dip down closer to 100, but with difficulty staying on the monitor. Doppler confirmed HR in the low 100s; patient was repositioned (lying on her back) and then got out of bed to go to the bathroom; heart tones had recovered on return to bed/monitor. Elapsed time during this period was about 10 minutes. At the time, patient feeling mild to moderate discomfort with contractions. At that time contractions q3-5 minutes. IV placed and 1L LR was administered. On re-evaluation patient still with intermittent mild to moderate pain the contractions, contractions irregular q3-q7, and FHT with baseline 150, moderate variability, no decels. Results Hemoglobin/Hematocrit: Hgb 13.2 g/dL (11.2-15.7) 01/07/25 19:05 Hct 39.1 % (36.0-46.0) 01/07/25 19:05 Abnormal Lab Findings: Abnormal Labs 01/07/25 19:05 Absolute Monocytes 0.84 H
[2025-01-08] MEDS: Lactated Ringers 1,000 ML 200 ML IV (06:00)
[2025-01-08] MEDS: Penicillin G POT. 3,000,000 UNITS in Normal Saline 50 ML 100 UNITS IVPB (06:50)
--- NOTE | 2025-01-08 08:02 | W.PM.OBNL1 ---
Date of service: 01/08/25 Time of Service: 08:02 Contractions Contraction Frequency(min): Irregular, q5-10 minutes Intensity: Mild/Moderate Fetus A Monitor: External (US) Heart Rate Baseline: 150 Variability: Moderate (6-25 BPM) Categories: Category II Accelerations: Absent Decelerations: Late Recurrence: Intermittent Assessment Note: At time of this exam, tracing improved and without decels; but review of strip from past 2 hours shows still intermittent late decels, intermittent variable decels. Cat I- Cat II strip Assessment and Plan Assessment and plan (1) : Status: Acute Assessment and plan: 34 year old at 39+5, here for iIOL for GDM. also c/b AMA status, GBS +, IVF . S/P 2 doses of cytotec overnight; with intermittent late decels with contraction, including one prolonged decel after second dose of cytotec which resolved with repositioning, fluids. Still 1cm dilated at last check ~4am. Discussed with patient and on-call OBs (Dr. Gibson and Dr. Daniels). Discussed that FHT may indicate that baby is not tolerating contractions well, and may not tolerate labor. However tracing currently improved on monitoring. Discussed options to trial pitocin at a low dose, versus possibility of CS. Dr. Gibson also discussed these options with Tiny in room. Patient would prefer to trial pitocin at this time, but is starting to worry about the stress on the baby, and would be open to CS if necessary. Possibility of CS, and risks involved/expected recovery, were discussed. - Start pitocoin; start at 1 and uptitrate as appropriate. Will monitor for response and low threshold to discontinue pitocin if recurrent cat II tracing. - clear fluids only - CEFM (2) Gestational diabetes: Status: Acute (3) AMA (advanced maternal age) multigravida 35+: Status: Acute (4) GBS (group B Streptococcus carrier), +RV culture, currently : Status: Acute (5) conceived through in vitro fertilization: Status: Acute (6) Obesity: Status: Chronic (7) HSV infection: Status: Chronic Objective Abnormal lab results 01/07/25 Range/Units 19:05 Absolute Monocytes 0.84 H (0.1-0.8) 10^3/uL Temp Pulse Resp BP 36.4 C 73 16 108/68 01/08/25 03:43 01/08/25 06:53 01/08/25 03:43 01/08/25 06:53 Laboratory Results WBC 10.56 10^3/uL (4.4-10.8) 01/07/25 19:05 RBC 4.40 10^6/uL (3.93-5.22) 01/07/25 19:05 Hgb 13.2 g/dL (11.2-15.7) 01/07/25 19:05 Hct 39.1 % (36.0-46.0) 01/07/25 19:05 MCV 89 fL (80-95) 01/07/25 19:05 MCH 30.0 pg (27.0-33.0) 01/07/25 19:05 MCHC 33.8 % (32.0-36.0) 01/07/25 19:05 RDW 12.5 % (11.7-14.6) 01/07/25 19:05 Plt Count 191 10^3/uL (130-400) 01/07/25 19:05 MPV 11.0 fL (8.0-11.0) 01/07/25 19:05 Immature Gran % 0.6 % 01/07/25 19:05 Neutrophils % 61.5 % 01/07/25 19:05 Lymphocytes % 27.5 % 01/07/25 19:05 Monocytes % 8.0 % 01/07/25 19:05 Eosinophils % 2.1 % 01/07/25 19:05 Basophils % 0.3 % 01/07/25 19:05 Nucleated RBC % 0.0 % (0.0-0.3) 01/07/25 19:05 Absolute Neutrophils 6.51 10^3/uL (1.2-6.7) 01/07/25 19:05 Absolute Lymphocytes 2.90 10^3/uL (1.2-3.4) 01/07/25 19:05 Absolute Monocytes 0.84 10^3/uL (0.1-0.8) H 01/07/25 19:05 Absolute Eosinophils 0.22 10^3/uL (0.0-0.7) 01/07/25 19:05 Absolute Basophils 0.03 10^3/uL (0.0-0.2) 01/07/25 19:05 ABO/Rh O Positive 01/07/25 19:05 Antibody Screen NEGATIVE 01/07/25 19:05 Subjective Interval history since last seen: Patient still mild to moderately uncomfortable with contractions. Otherwise tired but feeling well. Worried about induction/labor. Results Hemoglobin/Hematocrit: Hgb 13.2 g/dL (11.2-15.7) 01/07/25 19:05 Hct 39.1 % (36.0-46.0) 01/07/25 19:05 Abnormal Lab Findings: Abnormal Labs 01/07/25 19:05 Absolute Monocytes 0.84 H
--- NOTE | 2025-01-08 08:18 | OBCE_ITS ---
Date of service: 01/08/25 Time of Service: 08:18 Assessment and Plan Assessment and plan (1) AMA (advanced maternal age) multigravida 35+: Status: Acute Assessment and plan: Patient is a 34-year-old female 3 para 1-0-1-1 with via IVF due to tubal factor. Patient has had a sterilization. IVF performed for this reason with new partner. She also has gestational diabetes which has been diet controlled. She is in the process of a labor induction due to these factors in addition to advanced maternal age. At this point, she has intolerance of labor. In her counseling, we discussedcesearean section with its associated surgical and future fertility risks versus pitocin augmentation and its associated risks. Hand off to Dr. Daniels who will be managing the ongoing care of this patient. (2) conceived through in vitro fertilization: Status: Acute (3) Gestational diabetes: Status: Acute Assessment and plan: appropriate glycemic control (4) GBS (group B Streptococcus carrier), +RV culture, currently : Status: Acute Assessment and plan: s/p 1 dose PCN G History of Present Illness History of Present Illness Chief Complaint: Category 2 heart rate tracing, remote from delivery Narrative: Patient is a 34-year-old -0-1-1 at 39 weeks and 5 days today for labor induction due to gestational diabetes, diet-controlled, advanced maternal age, IVF . Her history is also significant for being group B strep positive, obese, with Rh positivity. She was admitted last evening for labor induction with a Santana score of 6 on admission. She received 1 dose of vaginal misoprostol and 1 dose of oral misoprostol. Intermittently throughout the night last night, she had category 2 strip. There was 1 period of heart rate deceleration which recovered though was prolonged. And she has variable decelerations, in the late position from time to time. She is currently on knee-chest with a category 1 strip. I was asked to consult with this patient regarding mode of delivery. She had been offered augmentation of labor with Pitocin as this would be more controllable versus . My focus was predominantly on delivery as at this point, we have seen periods of time of intolerance of labor, with a cervix that is essentially unchanged. She did receive 1 dose of group B strep prophylaxis with penicillin recently. Her fingerstick glucose checks have been appropriate. Consults Consult date: 01/08/25 Requesting physician: Vera Zhao Review of Systems Constitutional Constitutional: Reports as per HPI Cardiovascular Cardiovascular: Reports system reviewed and no additional complaints, except as documented and Denies dyspnea Respiratory Respiratory: Reports chest congestion and Denies dyspnea Gastrointestinal Gastrointestinal: Reports system reviewed and no additional complaints, except as documented Musculoskeletal Musculoskeletal: Reports as per HPI Neurologic Neurologic: Reports system reviewed and no additional complaints, except as documented PFSH All Active Problems (Updated 01/07/25 @ 21:11 by Vera Zhao MD) (Acute) Gestational diabetes (Acute) AMA (advanced maternal age) multigravida 35+ (Acute) GBS (group B Streptococcus carrier), +RV culture, currently (Acute) conceived through in vitro fertilization (Acute) Obesity (Chronic) HSV infection (Chronic 10/24/15) Medical History (Updated 01/07/25 @ 21:11 by Vera Zhao MD) Patient desires with vasectomy, unable to afford reversal Family History Mother Diabetes Father Essential hypertension Sister Essential hypertension Brother Essential hypertension Grandmother Diabetes Personal history of malignant neoplasm Breast cancer Social History (Updated 01/16/22 @ 09:14 by Radha Perry RN) Smoking/Tobacco Use Status: Former Tobacco Use Smoking risk assessment performed?: Yes Alcohol Intake: never Drug use: Never Substance use type: does not use Counseling given: No Housing: house Number of Children: 1 Sexually active: Yes Current gender identity: female What type of physical activity do you participate in: none Seatbelt use: always Do you feel safe at home: Yes Female Reproductive History Menstrual Age of Menarche: 11 Duration of menses: 3-5 days control method: patch History History 2 3 Para 1 Hx # Term Pregnancies Multiple births Hx # Pregnancies Ectopic pregnancies AB induced Hx Number of Living Children AB spontaneous Past Pregnancies Del. Date GA/Weeks # Preg Succ Route Wgt Sex Labor Lgth Anesth esia Location Prov Complic 04/25/13 40 No Yes vaginal 7 lb 7 oz Male [facility] Delivery Date: 04/25/13 Last Updated by: Radha Perry RN Chema Exam Const General: cooperative, healthy appearing, comfortable and no acute distress Nutritional Appearance: overweight HENMT Head: normal to inspection Eyes General: appearance normal, both eyes and all related structures Neck Neck: normal visual inspection Resp Auscultation: clear to auscultation bilaterally, no rales, no rhonchi, no wheezes and vesicular breath sounds Cardio Rate: regular rate Rhythm: regular rhythm Heart Sounds: S1 normal, S2 normal and no murmurs GI Palpation: soft, not firm, no guarding and other (Gravid) Neuro General: patient alert, patient awake and patient oriented x3 Results Last Vital Signs Temp 97.6 F 01/08/25 03:43 Pulse 73 01/08/25 06:53 Resp 16 01/08/25 03:43 BP 108/68 01/08/25 06:53 Labs 01/07/25 19:05 Labs: Laboratory Results - last 24 hr 01/07/25 19:05 WBC 10.56 RBC 4.40 Hgb 13.2 Hct 39.1 MCV 89 MCH 30.0 MCHC 33.8 RDW 12.5 Plt Count 191 MPV 11.0 Immature Gran % 0.6 Neutrophils % 61.5 Lymphocytes % 27.5 Monocytes % 8.0 Eosinophils % 2.1 Basophils % 0.3 Nucleated RBC % 0.0 Absolute Neutrophils 6.51 Absolute Lymphocytes 2.90 Absolute Monocytes 0.84 H Absolute Eosinophils 0.22 Absolute Basophils 0.03 ABO/Rh O Positive Antibody Screen NEGATIVE
[2025-01-08] MEDS: Oxytocin/Normal Saline 30 UNIT/500 ML BAG 1 UNITS IV (08:50)
[2025-01-08] MEDS: PENICILLIN POT IVPB (09:49)
[2025-01-08] MEDS: NORMAL SALINE IVPB (09:49)
--- NOTE | 2025-01-08 12:11 | W.PM.OBNL1 ---
Date of service: 01/08/25 Time of Service: 12:11 Pelvic Exam Dilation: 1 Contractions Contraction Frequency(min): q6min Fetus A Variability: Moderate (6-25 BPM) Categories: Category II Accelerations: 10 X 10 Decelerations: Late and Variable Assessment and Plan Assessment and plan (1) Category II heart rate tracing during labor and delivery: Status: Acute Assessment and plan: Pt is a 34yo @39.5wks undergoing induction of labor due to AMA, IVF and A1 GDM. She is also GBS+ and has obesity. She has had a persistent Cat 2 FHT and remains remote from delivery with inability to tolerate pitocin due to Cat 2 FHT. We reviewed my recommendation to consider a CS for delivery and she agrees to this plan. All her questions were answered, consent signed. Risks and recovery were reviewed. Objective Abnormal lab results 01/07/25 Range/Units 19:05 Absolute Monocytes 0.84 H (0.1-0.8) 10^3/uL Temp Pulse Resp BP 97.9 F 99 H 16 133/69 01/08/25 11:05 01/08/25 11:05 01/08/25 03:43 01/08/25 11:05 Laboratory Results WBC 10.56 10^3/uL (4.4-10.8) 01/07/25 19:05 RBC 4.40 10^6/uL (3.93-5.22) 01/07/25 19:05 Hgb 13.2 g/dL (11.2-15.7) 01/07/25 19:05 Hct 39.1 % (36.0-46.0) 01/07/25 19:05 MCV 89 fL (80-95) 01/07/25 19:05 MCH 30.0 pg (27.0-33.0) 01/07/25 19:05 MCHC 33.8 % (32.0-36.0) 01/07/25 19:05 RDW 12.5 % (11.7-14.6) 01/07/25 19:05 Plt Count 191 10^3/uL (130-400) 01/07/25 19:05 MPV 11.0 fL (8.0-11.0) 01/07/25 19:05 Immature Gran % 0.6 % 01/07/25 19:05 Neutrophils % 61.5 % 01/07/25 19:05 Lymphocytes % 27.5 % 01/07/25 19:05 Monocytes % 8.0 % 01/07/25 19:05 Eosinophils % 2.1 % 01/07/25 19:05 Basophils % 0.3 % 01/07/25 19:05 Nucleated RBC % 0.0 % (0.0-0.3) 01/07/25 19:05 Absolute Neutrophils 6.51 10^3/uL (1.2-6.7) 01/07/25 19:05 Absolute Lymphocytes 2.90 10^3/uL (1.2-3.4) 01/07/25 19:05 Absolute Monocytes 0.84 10^3/uL (0.1-0.8) H 01/07/25 19:05 Absolute Eosinophils 0.22 10^3/uL (0.0-0.7) 01/07/25 19:05 Absolute Basophils 0.03 10^3/uL (0.0-0.2) 01/07/25 19:05 ABO/Rh O Positive 01/07/25 19:05 Antibody Screen NEGATIVE 01/07/25 19:05 Vital Signs Reviewed: Yes Subjective Interval history since last seen: Asked to consult with pt due to Cat 2 FHT still remote from delivery. She is a 34yo @39.5wks undergoing induction of labor due to AMA, IVF and A1 GDM. She is also GBS+ and has obesity. She received 2 doses of misoprostol overnight and had a Category 2 FHT with intermittent late and variable decels and one prolonged decel that resolved with repositioning. She declined CS earlier this am and opted for pitocin. However, she has had several episodes of late decels which resolved with decreased pitocin. Results Hemoglobin/Hematocrit: Hgb 13.2 g/dL (11.2-15.7) 01/07/25 19:05 Hct 39.1 % (36.0-46.0) 01/07/25 19:05 Abnormal Lab Findings: Abnormal Labs 01/07/25 19:05 Absolute Monocytes 0.84 H
--- NOTE | 2025-01-08 12:24 | ANES.PREOP_ITS ---
General Info Date of Service Date Performed: 01/08/25 Height: 5 ft 0.5 in Weight: 86.273 kg Body Mass Index (BMI): 36.5 Surgical Procedure: Operation Date: 01/08/25 12:40 Proposed Procedure Side Surgeon p Section Tatyana Daniels MD Actual Procedure Side Surgeon p Section Tatyana Daniels MD Pre-Op Diagnosis Post-Op Diagnosis intolerance of labor Meds Allergies and Home Medications Allergies Allergy/AdvReac Type Severity Reaction Status Date / Time amoxicillin trihydrate (From Allergy Intermediate RASH WHEN Verified 02/18/24 12:56 Augmentin) potassium clavulanate (From Allergy Intermediate RASH WHEN Verified 02/18/24 12:56 Augmentin) INFANT Home Medication Medication Instructions Recorded cholecalciferol (vitamin D3) 10 10 mcg PO DAILY mcg (400 unit) capsule vitamin no.56-iron 35 mg 1 cap PO DAILY 02/17 and 5 mg-folic acid 1 mg-dha capsule acyclovir 400 mg tablet 400 mg PO BID 30 days #60 ta b-caps 03/17/24 aspirin 81 mg tablet,delayed 81 mg DAILY To help preve nt 01/07/25 release (Enteric Coated Aspirin) preeclampsia Held on 01/07/25. Instructions: Changed by Provider Current Visit Medications: Current Medications Generic Name Dose Route Start Last Admin Trade Name Ricardo PRN Reason Stop Dose Admin Cholecalciferol 400 unit 01/08/25 08:30 01/08/25 10:26 Cholecalciferol (Vitamin D3) 400 Unit Tab PO Not Given DAILY EDILMA Ringer's Solution 1,000 mls @ 200 mls/hr 01/07/25 18:45 01/08/25 06:00 IV 200 mls/hr INFUSION EDILMA Administration Penicillin G Potassium 3,000, 50 mls @ 100 mls/hr 01/08/25 02:00 01/08/25 07:58 000 units/ Sodium Chloride IVPB Infused Q4H EDILMA Infusion Oxytocin/Sodium Chloride 30 unit in 500 mls @ 1 mls/hr 01/08/25 08:30 01/08/25 11:27 Pitocin/Normal Saline IV 5 milliunits/min INFUSION EDILMA 5 mls/hr Protocol Titration 1 MILLIUNITS/MIN IV Miscellaneous Supplies 1 each 01/07/25 18:45 Iv Access IV DIRECTED [facility] IV Miscellaneous Supplies 1 each 01/07/25 20:15 Iv Access IV DIRECTED [facility] Misoprostol 50 mcg 01/08/25 02:00 01/08/25 10:26 Misoprostol 50 Mcg Tab PO Not Given Q4H [facility] Multivitamins 1 tab 01/08/25 08:30 01/08/25 10:27 Multivitamin W/Ca,Fe Tab PO Not Given DAILY EDILMA Sodium Chloride 0 ml 01/07/25 18:44 Normal Saline Flush 10 Ml Syr IVP PRN PRN Sodium Chloride 0 ml 01/07/25 20:00 01/08/25 10:26 Normal Saline Flush 10 Ml Syr IVP Not Given BID EDILMA Sodium Chloride 0 ml 01/07/25 18:44 Normal Saline 10 Ml Vial IJ DIRECTED PRN Sodium Chloride 0 ml 01/07/25 20:11 Normal Saline Flush 10 Ml Syr IVP PRN PRN Sodium Chloride 0 ml 01/08/25 08:30 01/08/25 10:25 Normal Saline Flush 10 Ml Syr IVP Not Given BID EDILMA Sodium Chloride 0 ml 01/07/25 20:11 Normal Saline 10 Ml Vial IJ DIRECTED PRN Terbutaline Sulfate 0.25 mg 01/07/25 18:44 Terbutaline 1 Mg/Ml Vial SC PRN PRN PFSH Active Problems Active Problems: Problem Status Onset Code Acute Z34.90 Gestational diabetes Acute O24.419 AMA (advanced maternal age) multigravida 35+ Acute O09.529 GBS (group B Streptococcus carrier), +RV culture, currently Acute O99.820 conceived through in vitro fertilization Acute O09.819 Obesity Chronic E66.9 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 Date GA/Weeks # Preg Succ Route Wgt Sex Labor Lgth Anesth esia Location Prov Complic 04/25/13 40 No Yes vaginal 3373.593 g Male [facility] Delivery Date: 04/25/13 Last Updated by: CHAPARRO Gonzales Vital Signs and Lab Results Vital Signs Most Recent Vital Signs in EMR: Most Recent Vital Signs Temp Pulse Resp BP 36.6 C 99 H 16 133/69 01/08/25 11:05 01/08/25 11:05 01/08/25 03:43 01/08/25 11:05 Point of Care Results Point of Care Results: Finger Stick Blood Glucose 81 01/08/25 11:18 Lab Results 01/07/25 19:05 Blood Type / Crossmatch: 2 Antibody Screen NEGATIVE 01/07/25 Complete Blood Count: 2 WBC, (4.4-10.8) 10.56 10^3/uL 01/07/25, 19:05 RBC, (3.93-5.22) 4.40 10^6/uL 01/07/25, 19:05 Hgb, (11.2-15.7) 13.2 g/dL 01/07/25, 19:05 Hct, (36.0-46.0) 39.1 % 01/07/25, 19:05 Plt Count, (130-400) 191 10^3/uL 01/07/25, 19:05 Anesthesia Assessment and Plan Anesthesia History Personal History: No History of Anesthesia Complications Family History: No Family History of Anesthesia Complications Exercise Tolerance Exercise Tolerance: Metabolic Equivalents>4 Pertinent Negatives Pertinent Negatives: No Major Cardiovascular Symptoms or Complaints and No Major Pulmonary Symptoms or Complaints Cardiac & Pulmonary Exam Cardiac Exam: Normal S1/S2 Heart Sounds Pulmonary Exam: Clear Bilateral Breath Sounds Implantable Cardiac Device Does patient have a Pacemaker or an ICD?: No Airway Exam Known Difficult Airway: No Mallampati Class: 2 Mouth Opening: Normal (> 3cm) Thyromental Distance: Greater than 3 cm Neck Range of Motion: Full ROM Neck Circumference: Normal Teeth Condition: Normal Dentition ASA Classification ASA Score: ASA 2 Emergency Case?: Yes NPO Status NPO Status: Full Stomach Status Status: Confirmed Anesthesia Plan Resuscitation Status: Full Code Anesthesia Technique: Spinal Anesthesia Airway Planned: Natural Airway Pain Management: Intrathecal Analgesia Monitors Used: Standard Monitors Preoperative Comments:: Last meal 01/07/25
[2025-01-08] MEDS: Azithromycin 500 MG VIAL (12:44)
[2025-01-08] MEDS: Bupivacaine 0.25% Pres-Free 30 ML VIAL (14:07)
[2025-01-08] MEDS: ceFAZolin 2 GM/50 ML BAG 100 GM (14:08)
--- NOTE | 2025-01-08 14:37 | W.PM.OBCSECT ---
Date of service: 01/08/25 Time of Service: 13:00 Operative Note Operative Note Delivery Method: Unscheduled STAT: No and Primary NTSV>37 Weeks: No DATE OF PROCEDURE: 01/08/25 PRE-OP DIAGNOSES: 34yo @39.5wks IVF , A1GDM, Cat 2 FHT remote from delivery POST-OP DIAGNOSES: same PROCEDURE: PLTCS SURGEON: Tatyana Daniels Assisting Surgeon: Layla Fall Estimated blood loss (mL): 500 Complications: None Patient was transported to: floor Patient's condition: stable Indications: Pt is a 34yo @39.5wks IVF , A1GDM Procedure Description: After informed consent was signed the patient was taken to the operating room. She was given spinal anesthesia, SCDs were placed on her legs and a garzon catheter was introduced into her bladder. The heart rate was checked and was normal. She underwent abdominal prep and was draped in the dorsal supine position with a leftward tilt. The patient was tested and spinal anesthesia was found to be adequate. A time out was performed. The skin was injected with bupivocaine along the length of the planned incision. A skin incision was made with the scalpel and carried down to the underlying layer of fascia with blunt dissection. The fascia was incised on either side of the midline and the fascial incision extended laterally with a combination of sharp and blunt dissection. The inferior edge of the fascia was grasped with abdirahman clamps and tented up and dissected down with a combination of sharp and blunt dissection. Then the superior edge of the fascial incision was grasped with abdirahman clamps and tented up and dissected down with a combination of sharp and blunt dissection. The rectus muscles were in the midline and the peritoneum was entered bluntly. The peritoneal incision was extended laterally with blunt dissection. The bladder blade was inserted. A transverse incision was made in the lower uterine segment with the scalpel. The incision was extended superiorly and inferiorly with blunt pressure. The infants head delivered with fundal pressure followed by the shoulders and the rest of the body. Very little amniotic fluid was noted at time of delivery. The cord was milked toward the baby and after 1min it was clamped x2 and cut. The baby was handed to the family medicine doctor. Cord blood was collected. A segment was clamped for cord gasses. The placenta delivered with fundal massage and gentle cord traction and appeared to be intact. The uterus was exteriorized and cleared of clots and debris. The uterine incision was closed with 0-vicryl in a running locked fashion with a second layer of suture imbricating the first. Good hemostasis was noted. As the uterus was being placed back into the abdominal cavity, it started bleeding from the left cornua. A [id number] suture of 1-0 vicryl was placed with good hemostasis. The uterus was then gently replaced into the abdominal cavity. Clots were cleared from the peritoneal cavity with lap sponges. The incision was inspected once again and good hemostasis was noted. There was good hemostasis of the rectus muscles with some cautery with the bovie. The fascia was closed with 0-vicryl in a running unlocked fashion. The subcuticular layer was irrigated and closed with interrupted sutures of 3-0 vicryl. The skin was closed with 4-0 vicryl in a running subcuticular fashion. The incision was cleaned. Mastisol and steristrips were placed. A dressing was placed. The fundus was palpated to be firm. The patient was moved to the stretcher and taken to the recovery room in stable condition.
--- NOTE | 2025-01-08 16:42 | W.ANESPOSTOP ---
Postoperative Evaluation Date, Time and Location Date Performed: 01/08/25 Time Performed: 15:40 Patient Location: Obstetrics Vital Signs Most Recent Imported Vital Signs: Most Recent Vital Signs Temp Pulse Resp BP Pulse Ox 36.6 C 87 16 116/60 96 01/08/25 11:05 01/08/25 16:21 01/08/25 03:43 01/08/25 16:13 01/08/25 16:21 Assessment Mental Status: Awake (Alert & Oriented to Patient Baseline) Airway and Respiratory Function: Patent airway with normal (patient baseline) respiratory exam Cardiovascular Function: Hemodynamically Stable Hydration Status: Adequately Hydrated Nausea & Vomiting: No Nausea or Vomiting Pain: Other (SAB has not fully resolved) Peripheral Nerve Block: Patient did not receive a nerve block
--- NOTE | 2025-01-08 17:41 | W.PM.OBPNV1 ---
Date of service: 01/08/25 Time of Service: 17:42 Assessment and Plan Assessment and plan (1) care and examination immediately after delivery: Status: Acute Assessment and plan: Pt doing well 4hrs s/p PCS for Cat 2 FHT remote from delivery. Anticipate routine pp care for mom. Subjective Subjective Interval history: Pt is doing well overall, just tired. She denies any significant pain. No nausea. Narrative: Baby is still on CPAP in the warmer at the bedside. Exam Physical Exam Vital signs: Temp Pulse Resp BP Pulse Ox 98.1 F 107 H 16 122/64 96 01/08/25 16:00 01/08/25 17:13 01/08/25 03:43 01/08/25 17:13 01/08/25 16:21 Vital Signs Reviewed: Yes Abdominal Exam Comments: Dressing clean and dry Fundal Exam Comment: Down from Umbilicus. Results Hemoglobin/Hematocrit: Hgb 13.2 g/dL (11.2-15.7) 01/07/25 19:05 Hct 39.1 % (36.0-46.0) 01/07/25 19:05 Abnormal Lab Findings: Abnormal Labs 01/07/25 19:05 Absolute Monocytes 0.84 H
[2025-01-08] MEDS: Lactated Ringers 1,000 ML 120 ML IV (19:30)
[2025-01-08] MEDS: Ketorolac 15 MG/ML VIAL IVP (22:50)
[2025-01-09] VITALS (14 sets, daily range): BP systolic 92–110; BP diastolic 54–69; PULSE 83–102; RESP 16–18; TEMP 36.8–37.2; O2SAT 94–99
[2025-01-09] MEDS: Acetaminophen 325 MG TAB 650 MG PO ×4 (04:31→23:16)
[2025-01-09] MEDS: Ketorolac 15 MG/ML VIAL IVP ×2 (05:04→11:53)
[2025-01-09] MEDS: Normal Saline Flush 10 ML SYR IVP (05:09)
--- NOTE | 2025-01-09 08:00 | W.PM.OBPNV1 ---
Date of service: 01/09/25 Time of Service: 08:01 Assessment and Plan Assessment and plan (1) care and examination immediately after delivery: Status: Acute Assessment and plan: 34 yo ( x1, PLTCS x1) s/p 39 wk PLTCS on 01/09/2025 PM for suspicious testing remote from delivery - Rh+ / Rub I / VZV ? / GBS positive - complicated by AMA, GDMA1, obesity, GBS positive status - Intrapartum course complicated by suspicious testing, inadequate GBS coverage (received one dose) - course uncomplicated - Catheter removed this AM; awaiting voiding - Tolerating small, solid foods - Ambulating - Lochia appropriate - Pain control: Toradol and Roxicodone prn - - Contraception planning pending - depression counseling pending - Discharge planning pending Subjective Subjective Narrative: 34 yo ( x1, PLTCS x1) s/p 39 wk PLTCS on 01/09/2025 PM for suspicious testing remote from delivery. POD 1; patient is found to be resting comfortably in bed in good spirits. Pain control is appropriate. Recently had garzon out as of around 4:30 am; she has not urinated, yet. She is ambulating. Lochia has been appropriate. Ordering breakfast this morning. Exam Physical Exam Vital signs: Temp Pulse Resp BP Pulse Ox 98.2 F 89 18 107/63 96 01/09/25 07:47 01/09/25 07:47 01/09/25 07:47 01/09/25 07:47 01/09/25 07:47 Narrative: general: Well nourished female in no immediate distress pulm: No overt respiratory distress abd: Appropriate; incision clean and covered. No evidence of fluctuance Ext: +1 edema noted equally bilaterally Psych: Appropriate Results Hemoglobin/Hematocrit: Hgb 13.2 g/dL (11.2-15.7) 01/07/25 19:05 Hct 39.1 % (36.0-46.0) 01/07/25 19:05 Abnormal Lab Findings: Abnormal Labs 01/07/25 19:05 Absolute Monocytes 0.84 H
[2025-01-09] MEDS: oxyCODONE 5 MG TAB PO (16:17)
[2025-01-09] MEDS: Prenatal Multivitamin w/CA,FE TAB 1 TAB PO (19:25)
[2025-01-09] MEDS: Cholecalciferol (Vitamin D3) 400 UNIT TAB PO (19:26)
[2025-01-09] MEDS: Ibuprofen 600 MG TAB PO (19:27)
[2025-01-09] MEDS: Simethicone 40 MG/0.6 ML 30ML BTL 80 MG PO (20:25)
[2025-01-09] MEDS: Docusate Sodium 100 MG CAP PO (20:34)
[2025-01-10] MEDS: Ibuprofen 600 MG TAB PO ×3 (01:19→13:56)
[2025-01-10] MEDS: Acetaminophen 325 MG TAB 650 MG PO ×3 (04:45→15:46)
[2025-01-10] MEDS: Simethicone 40 MG/0.6 ML 30ML BTL 80 MG PO ×2 (04:45→13:56)
[2025-01-10] MEDS: Docusate Sodium 100 MG CAP PO (04:46)
[2025-01-10 05:20] VITALS: PULSE 109; RESP 89; TEMP 36.8
[2025-01-10 07:45] VITALS: BP 103/90; PULSE 88; RESP 18; TEMP 36.8; O2SAT 97
[2025-01-10 14:03] VITALS: BP 115/71; PULSE 109; RESP 16
--- NOTE | 2025-01-10 17:33 | W.PM.OBPNV1 ---
Date of service: 01/10/25 Time of Service: 15:00 Assessment and Plan Assessment and plan (1) care and examination immediately after delivery: Status: Acute Assessment and plan: Pt is a 34yo POD#2 s/p PCS for Cat 2 FHT remote from delivery. She had an uncomplicated CS and course and is ready for d/c. Discharge instructions reviewed. She will f/u with [facility] in 2wks and then with me in 6wks. She will call with any concerns prior to that. Subjective Subjective baby status: Doing well and Strong Bonding Observed [place] feeding status: Pumping and bottle feeding Narrative: Pt reports doing well overall, just tired. She says pain is reasonably well controlled on PO tylenol and ibuprofen but she is interested in an oxycodone before discharge. She is tolerating regular diet without issue. No n/v. +flatus and small BMs but does feel constipated. Minimal bleeding. Exam Physical Exam Vital signs: Temp Pulse Resp BP Pulse Ox 98.3 F 109 H 16 115/71 97 01/10/25 07:45 01/10/25 14:03 01/10/25 14:03 01/10/25 14:03 01/10/25 07:45 Vital Signs Reviewed: Yes Constitutional Constitutional: no acute distress and cooperative Detailed HEENT Exam Head: Present normocephalic and atraumatic Respiratory Exam Respiratory Exam: Normal Abdominal Exam Abdomen: Tender (mildly) Comments: Incision clean, dry Fundal Exam Fundus: Below Umbilicus and Firm Extremities Exam Extremity Exam: Edema (1+) Detailed Neurological Exam Neurological: Present alert, oriented X3 and CN II-XII intact Results Hemoglobin/Hematocrit: Hgb 13.2 g/dL (11.2-15.7) 01/07/25 19:05 Hct 39.1 % (36.0-46.0) 01/07/25 19:05 Abnormal Lab Findings: Abnormal Labs 01/07/25 19:05 Absolute Monocytes 0.84 H
--- NOTE | 2025-01-10 17:41 | W.PM.OBDISCH ---
Date of service: 01/10/25 Time of Service: 17:41 DS: Diagnosis Discharge Diagnosis (1) care and examination immediately after delivery: Status: Acute Asessment and Plan: Pt is a 34yo POD#2 s/p PCS for Cat 2 FHT remote from delivery. She had an uncomplicated CS and course and is ready for d/c. Discharge instructions reviewed. She will f/u with [facility] in 2wks and then with me in 6wks. She will call with any concerns prior to that. Discharge Plan Disposition Patient Disposition: Home Condition: Stable Discharge Details Reason For Visit: Admit Date/Time: 01/07/25 18:45 Admit Provider: Sergio Robles Attending Provider: Vera Zhao Primary Care Provider: Vera Zhao Hospital Course Hospital Course: Pt is a 34yo who was admitted for induction of labor at 39.5wks. She underwent PCS for Cat 2 FHT remote from delivery after 2 doses of misoprostol and a trial of pitocin. The CS was uncomplicated though the needed initial resuscitation. By POD#2 baby and mom were both doing well and ready for discharge to home. Home Meds and New Rx's Prescriptions: New acetaminophen 325 mg Tablet 650 mg PO Q4H PRN PRNQty: 0 0RF docusate sodium [Colace] 100 mg Capsule 100 mg PO BID PRN PRNQty: 0 0RF ibuprofen 600 mg Tablet 600 mg PO Q6H PRN PRNQty: 60 0RF oxycodone 5 mg Tablet 5 mg PO Q4H PRN PRNQty: 5 0RF Continued cholecalciferol (vitamin D3) 10 mcg (400 unit) capsule 10 mcg PO DAILY Discontinued acyclovir 400 mg tablet 400 mg PO BID 30 Days Qty: 60 12RF Rx Instructions: Take 400mg two times daily aspirin [Enteric Coated Aspirin] 81 mg tablet,delayed release (DR/EC) 81 mg DAILY No Action PNV no.[id number] acid-dha 35 mg iron-5 mg iron-1 mg capsule 1 cap PO DAILY Discharge Instructions Stand Alone Forms: Portal Information Activity:: No lifting >20lbs Equipment/Supplies:: No Equipment Needed Diet:: As Tolerated Discharge Orders Discharge Orders: Discharge Order (Routine); Ordered 01/10/25 Ordered By: Tatyana Daniels OB:DS Summary Contraception Discussed Contraception Discussed: Yes Contraceptive Plan: Vasectomy, Gender-Baby A: Female Status at Discharge Functional status at discharge: independent ambulation Overall status at discharge: patient is back to baseline Mental Status: mental status grossly normal Speech and Movement: speech and movement normal Mood: congruent mood Affect: normal affect Exam Physical Exam Vital signs: Temp Pulse Resp BP Pulse Ox 98.3 F 109 H 16 115/71 97 01/10/25 07:45 01/10/25 14:03 01/10/25 14:03 01/10/25 14:03 01/10/25 07:45 Vital Signs Reviewed: Yes Constitutional Constitutional: no acute distress and cooperative Detailed HEENT Exam Head: Present normocephalic and atraumatic Respiratory Exam Respiratory Exam: Normal Abdominal Exam Abdomen: Tender (mildly) Comments: Incision clean, dry, intact Fundal Exam Fundus: Below Umbilicus and Firm Extremities Exam Extremity Exam: Edema (trace) Detailed Neurological Exam Neurological: Present alert, oriented X3 and CN II-XII intact PFSH All Active Problems (Updated 01/08/25 @ 17:51 by Tatyana Daniels MD) care and examination immediately after delivery (Acute) Obesity (Chronic) HSV infection (Chronic 10/24/15) Medical History (Updated 01/08/25 @ 17:51 by Tatyana Daniels MD) GBS (group B Streptococcus carrier), +RV culture, currently conceived through in vitro fertilization Gestational diabetes Category II heart rate tracing during labor and delivery Patient desires with vasectomy, unable to afford reversal Family History Mother Diabetes Father Essential hypertension Sister Essential hypertension Brother Essential hypertension Grandmother Diabetes Personal history of malignant neoplasm Breast cancer Social History (Updated 01/16/22 @ 09:14 by Radha Perry RN) Smoking/Tobacco Use Status: Former Tobacco Use Smoking risk assessment performed?: Yes Alcohol Intake: never Drug use: Never Substance use type: does not use Counseling given: No Housing: house Number of Children: 1 Sexually active: Yes Current gender identity: female What type of physical activity do you participate in: none Seatbelt use: always Do you feel safe at home: Yes Female Reproductive History Menstrual Age of Menarche: 11 Duration of menses: 3-5 days control method: patch History History 3 Para 1 Hx # Term Pregnancies Multiple births Hx # Pregnancies Ectopic pregnancies AB induced Hx Number of Living Children AB spontaneous Past Pregnancies Del. Date GA/Weeks # Preg Succ Route Wgt Sex Labor Lgth Anesthesia Location Prov Complic 04/25/13 40 No Yes vaginal 7 lb 7 oz Male [facility] Delivery Date: 04/25/13 Last Updated by: Radha Perry, CHAPARRO Bear DS: Data Vitals/I&O Vitals and I&O: Vital Signs Temperature 98.3 F 01/10/25 07:45 Temperature Source Oral 01/10/25 07:45 Pulse 109 H 01/10/25 14:03 Pulse Rhythm Regular 01/10/25 07:45 Respiratory Rate 16 01/10/25 14:03 Respiratory Depth Normal 01/10/25 07:45 Blood Pressure 115/71 01/10/25 14:03 Blood Pressure Mean 85 01/10/25 14:03 Pulse Oximetry 97 01/10/25 07:45 Oxygen Delivery Method Room Air 01/07/25 18:53 Oxygen Flow Rate 0 01/07/25 18:53 Pain Level 4 01/10/25 07:45 Comment patient denies feeling dizzy or lightheaded 01/09/25 15:12 Intake & Output 01/09/25 01/10/25 01/10/25 23:59 11:59 23:59 Output Total 450 / 650 Balance -450 / 350 Output: Urine 450 / 650 Data Completed and Pending Pending Labs at Discharge: 01/07/25 19:05 WBC 10.56 RBC 4.40 Hgb 13.2 Hct 39.1 MCV 89 MCH 30.0 MCHC 33.8 RDW 12.5 Plt Count 191 MPV 11.0 Immature Gran % 0.6 Neutrophils % 61.5 Lymphocytes % 27.5 Monocytes % 8.0 Eosinophils % 2.1 Basophils % 0.3 Nucleated RBC % 0.0 Absolute Neutrophils 6.51 Absolute Lymphocytes 2.90 Absolute Monocytes 0.84 H Absolute Eosinophils 0.22 Absolute Basophils 0.03 ABO/Rh O Positive Antibody Screen NEGATIVE
== END 2025-01-10 18:00 | disposition home or self-care (01) | DRG 787 ==
PROVIDERS: Obstetrics & Gynecology; Admitting Provider Family Medicine; PCP Student in an Organized Health Care Education/Training Program; Visit Provider Student in an Organized Health Care Education/Training Program
PROC: 10D00Z1 Extraction of Products of Conception, Low, Open Approach (ICD-10-PCS; CPT 59514; principal; 2025-01-08 12:30)
DX: O99.824 Streptococcus B carrier state complicating childbirth (principal); O98.32 Other infections with a predominantly sexual mode of transmission complicating childbirth; Z37.0 Single live birth; O24.420 Gestational diabetes mellitus in childbirth, diet controlled; O76 Abnormality in fetal heart rate and rhythm complicating labor and delivery; Z3A.39 39 weeks gestation of pregnancy; A60.09 Herpesviral infection of other urogenital tract
CPT/HCPCS: 59514; 36415; 86850; 86900; 86901; 59200; 85025; 88307; J0456; J0665; J0690; J1885; J2274; J2371; J2540; J3010; J3490

== ENCOUNTER 2025-01-13 22:59 | Emergency (ER) | payer BC, SELFPAY ==
[2025-01-13 23:04] VITALS: BP 141/86; PULSE 106; RESP 20; TEMP 37; O2SAT 97
[2025-01-13 23:10] VITALS: PULSE 104; RESP 19; TEMP 37; O2SAT 97
--- NOTE | 2025-01-13 23:23 | W.ED.GENAD ---
Discharge Plan Disposition Patient Disposition: Home Condition: Good Discharge Details Clinical Impression: Constipation Primary Care Provider: Vera Zhao ED Provider: Brendan Jacinto Home Meds and New Rx's Prescriptions: No Action PNV no.75-vvco-[id number] acid-dha 35 mg iron-5 mg iron-1 mg capsule 1 cap PO DAILY cholecalciferol (vitamin D3) 10 mcg (400 unit) capsule 10 mcg PO DAILY famotidine 20 mg tablet 20 mg PO QHS PRN Patient Comments: START WITH ONE TABLET ONCE DAILY AT BEDTIME. IF PERSISTENT SYMPTOMS AFTER 1 WEEK, CAN INCREASE TO ONE TABLET TWICE DAILY. polyethylene glycol 3350 17 gram powder in packet 17 g PO DAILY acetaminophen 325 mg Tablet 650 mg PO Q4H PRN PRNQty: 0 0RF docusate sodium [Colace] 100 mg Capsule 100 mg PO BID PRN PRNQty: 0 0RF ibuprofen 600 mg Tablet 600 mg PO Q6H PRN PRNQty: 60 0RF oxycodone 5 mg Tablet 5 mg PO Q4H PRN PRNQty: 5 0RF Discharge Instructions Instructions: Constipation in adults Additional Instructions: At this time your constipation has improved. Please drink a minimum of 10 to 12 cups of water or electrolyte solution throughout the day. For the next 3-5 days please take both the MiraLAX and the Colace to help keep your stools soft. After this please transition to just taking the Colace daily. If you notice any worsening of your symptoms, or any new symptoms such as vomiting, diarrhea, fever, chills, shortness of breath, chest pain, numbness, weakness, or fainting , please return immediately to the emergency department for reevaluation. Please follow up with your primary care provider as soon as possible for reassessment and reevaluation. As always, it was a pleasure participating in your medical care today. Stand Alone Forms: Portal Information Referrals: Vera Zhao MD [Primary Care Provider, Medicine] HPI General Date/Time Provider Initiated Documentation: 01/13/25 23:09. HPI Narrative: This is a pleasant 34-year-old female who is a G3, P2 who recently had a successful without complication 5 days ago who presents today for constipation. Patient had 2 to 3 days of oxycodone postprocedure, but has not had any in the last 48 hours. She states that she did not have any bowel movements while in the hospital, she has had 1 or 2 very hard and painful bowel movements since being home. She is taking Colace at the hospital and is taking MiraLAX currently but still has notably hard stool. She feels like there is a large bit of stool at the rectum but she is unable to poop it out. She denies any fever or chills. She denies any abdominal pain. She denies any vomiting. No rectal bleeding. No other complaints at this time. Related Data Home Medications Medication Instructions Recorded Confirmed cholecalciferol (vitamin D3) 10 10 mcg PO DAILY 02/18/24 01/13/25 mcg (400 unit) capsule vitamin no.56-iron 35 mg 1 cap PO DAILY 02/18/24 01/13/25 and 5 mg-folic acid 1 mg-dha capsule acetaminophen 325 mg tablet 650 mg (2 x 325 mg) PO Q4H PRN PRN 01/10/25 01/13/25 #0 tabs docusate sodium 100 mg capsule 100 mg PO BID PRN PRN #0 caps 01/10/25 01/13/25 (Colace) ibuprofen 600 mg tablet 600 mg PO Q6H PRN PRN #60 tabs 01/10/25 01/13/25 oxycodone 5 mg tablet 5 mg PO Q4H PRN PRN #5 tabs 01/10/25 01/13/25 Held on 01/13/25. Instructions: Prescription Finished famotidine 20 mg tablet 20 mg PO QHS PRN 01/13/25 01/13/25 polyethylene glycol 3350 17 gram 17 g PO DAILY 01/13/25 01/13/25 oral powder packet Previous Rx's Medication Instructions Recorded acetaminophen 325 mg tablet 650 mg (2 x 325 mg) PO Q4H PRN PRN 01/10/25 #0 tabs docusate sodium 100 mg capsule 100 mg PO BID PRN PRN #0 caps 01/10/25 (Colace) ibuprofen 600 mg tablet 600 mg PO Q6H PRN PRN #60 tabs 01/10/25 oxycodone 5 mg tablet 5 mg PO Q4H PRN PRN #5 tabs 01/10/25 Held on 01/13/25. Instructions: Prescription Finished Allergies Allergy/AdvReac Type Severity Reaction Status Date / Time amoxicillin trihydrate (From Allergy Intermediate RASH WHEN Verified 01/13/25 23:02 Augmentin) INFANT potassium clavulanate (From Allergy Intermediate RASH WHEN Verified 01/13/25 23:02 Augmentin) INFANT General Stated Complaint: Abd Prob NITESH: 3 Exam Narrative Exam Narrative: 1.Const: Well-nourished, Well-developed, appearing stated age 2.Eyes: PERRL, no conjunctival injection, and symmetrical lids. 3.ENT: Atraumatic external nose and ears. Moist MM. Neck: Symmetric, trachea midline, No thyromegaly. 4.CVS: +S1/S2, Peripheral pulses 2+ and equal in all extremities. Brisk capillary refill in all extremities. 5.RESP: Unlabored respiratory effort. Clear to auscultation bilaterally. No wheezes rales or rhonchi 6.GI: Soft, Nontender/Nondistended, No hepatosplenomegaly. No guarding or rebound. Postoperative site is clean dry and intact. 7.MSK: Normocephalic/Atraumatic, Extremities w/o deformity or ttp No cyanosis or clubbing, Normal movement of all extremities 8.Skin: Warm, Dry. No rashes or lesions. 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 Sensation grossly intact, no focal neurologic deficits. 10.Psych: (AAO) x3. Appropriate mood and affect Course Vital Signs Vital signs: Vital Signs Temperature 37 C 01/13/25 23:04 Pulse 106 H 01/13/25 23:04 Respiratory Rate 20 01/13/25 23:04 Blood Pressure 141/86 H 01/13/25 23:04 Pulse Oximetry 97 01/13/25 23:04 Temperature 37 C 01/13/25 23:10 Temperature Source Oral 01/13/25 23:10 Pulse 104 H 01/13/25 23:10 Respiratory Rate 19 01/13/25 23:10 Blood Pressure 141/86 H 01/13/25 23:04 Blood Pressure Position Standing 01/13/25 23:04 Pulse Oximetry 97 01/13/25 23:10 Oxygen Delivery Method Room Air 01/13/25 23:10 Oxygen Flow Rate 0 01/13/25 23:04 Pain Level 7 01/13/25 23:10 Medical Decision Making Abdominal exam demonstrates an appropriately abdomen, C-sectionsThis is a pleasant 34-year-old female who is a G3, P2 who recently had a successful without complication 5 days ago who presents today for constipation. Patient had 2 to 3 days of oxycodone postprocedure, but has not had any in the last 48 hours. She states that she did not have any bowel movements while in the hospital, she has had 1 or 2 very hard and painful bowel movements since being home. She is taking Colace at the hospital and is taking MiraLAX currently but still has notably hard stool. She feels like there is a large bit of stool at the rectum but she is unable to poop it out. She denies any fever or chills. She denies any abdominal pain. She denies any vomiting. No rectal bleeding. No other complaints at this time. Site is clean dry and intact, no abdominal tenderness throughout. Symptomatology appears consistent with constipation secondary to opiates and nature. Patient is also currently breast-feeding which certainly increases the need for oral fluids. We will give a soapsuds enema, likely recommend both MiraLAX and Colace at home, continued outpatient oral intake, and close monitoring. 11:57 PM Patient had a absolutely massive bowel movement, she is now feeling much better and has complete relief of her symptoms. Patient will be discharged home with recommendations for continued Colace and MiraLAX, plenty of fluids throughout the day discussed red flags for which to return. Patient is no longer on oxycodone. They should no longer be an aggravating component. I have extensively reviewed the treatment plan and discharge instructions with the patient. I have addressed all patient concerns at this time. The patient was made aware of what symptoms to monitor for that would warrant a return to the emergency department. Discussed the plan with the patient, they demonstrate verbal understanding and agreement with our assessment and plan at this time. The documentation in this chart was dictated using [employer] dictation software. Please excuse any dictation errors. 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) Medical History (Updated 01/14/25 @ 00:00 by Brendan Jacinto DO) Category II heart rate tracing during labor and delivery Gestational diabetes conceived through in vitro fertilization GBS (group B Streptococcus carrier), +RV culture, currently Patient desires with vasectomy, unable to afford reversal Family History Mother Diabetes Father Essential hypertension Sister Essential hypertension Brother Essential hypertension Grandmother Diabetes Personal history of malignant neoplasm Breast cancer Social History (Updated 01/16/22 @ 09:14 by Radha Perry RN) Smoking/Tobacco Use Status: Former Tobacco Use Smoking risk assessment performed?: Yes Alcohol Intake: never Drug use: Never Substance use type: does not use Counseling given: No Housing: house Number of Children: 1 Sexually active: Yes Current gender identity: female What type of physical activity do you participate in: none Seatbelt use: always Do you feel safe at home: Yes Female Reproductive History Menstrual Age of Menarche: 11 Duration of menses: 3-5 days control method: patch History History 3 Para 1 Hx # Term Pregnancies Multiple births Hx # Pregnancies Ectopic pregnancies AB induced Hx Number of Living Children AB spontaneous Past Pregnancies Del. Date GA/Weeks # Preg Succ Route Wgt Sex Labor Lgth Anesthesia Location Prov Complic 04/25/13 40 No Yes vaginal 3373.593 g Male [facility] Delivery Date: 04/25/13 Last Updated by: CHAPARRO Gonzales
[2025-01-14 00:11] VITALS: BP 125/84; PULSE 93; RESP 19; TEMP 36.7; O2SAT 96
== END 2025-01-14 00:16 | disposition home or self-care (01) ==
PROVIDERS: Emergency Provider Student in an Organized Health Care Education/Training Program; PCP Student in an Organized Health Care Education/Training Program
DX: K59.00 Constipation, unspecified (principal)
CPT/HCPCS: 99283 ×2